=== PATIENT | female | born 1945 | race Caucasian/White ===

== ENCOUNTER → 2019-06-14 09:52 | Outpatient (CLI) | payer MEDICARE, OTHER, SELFPAY ==
--- NOTE | 2019-06-14 14:19 | NEURO_ITS ---
NCS and/or EMG Patient Report Ordering Doctor: Abhijit Garcia DATE OF SERVICE: 06/14/19 Dolores Villa is a 73-year-old male who presents for electrodiagnostic testing of the right upper limb. She has numbness and tingling in the right hand, which occasionally radiates to the elbow. Electrodiagnostic findings: The right median motor nerve demonstrates prolonged distal latency with normal amplitude and reduced conduction velocity. Normal right ulnar motor response, including conduction across the elbow. Prolonged r ight median F waves. Prolonged right median sensory latency at the wrist. Prolonged right median palmar latency. On needle EMG, all muscles tested in the right upper limb showed no evidence of denervation with normal motor unit action potentials Electrodiagnostic impression: This is an abnormal study in the right upper limb. 1. Electrodiagnostic findings demonstrate right-sided median mononeuropathy. This is consistent with a moderate right carpal tunnel syndrome. If there are any further questions, please do not hesitate to contact me.
== END ==
PROVIDERS: Family Provider Internal Medicine; PCP Internal Medicine
DX: G56.01 Carpal tunnel syndrome, right upper limb (principal)
CPT/HCPCS: 95886; 95910

== ENCOUNTER → 2019-08-24 07:42 | Outpatient (CLI) | payer MEDICARE, OTHER, SELFPAY ==
[2019-07-27 13:19] VITALS: BMI 25.7
--- NOTE | 2019-08-24 07:48 | ECHOD_ITS ---
Reason For Study: CAD Procedure This was a 2D Doppler, Color Flow transthoracic echocardiogram. The exam was of adequate technical quality. Exam performed in department. Left Ventricle Normal LV size. Left ventricular systolic function is normal. The estimated ejection fraction is 60 %. No regional wall motion abnormalities noted. Right Ventricle Normal RV size. Normal systolic function. Atria Normal left atrium. Normal right atrium. No doppler evidence for ASD. Mitral Valve There is mild mitral annular calcification. Extension of the mitral annular calcification onto the posterior mitral valve leaflet. Mild (1+) mitral valve insufficiency. Tricuspid Valve Normal tricuspid valve. Mild to moderate (1-2+) tricuspid valve insufficiency. Right ventricular systolic pressure estimated to be 27 mmHg. Aortic Valve Trisinus/trileaflet aortic valve. Normal aortic valve. Pulmonic Valve The pulmonic valve is not well visualized. Trivial pulmonic valve insufficiency. Great Vessels Borderline to mildly dilated aortic root. Pericardium/Pleural No pericardial effusion. MMode/2D Measurements & Calculations LVIDd: 4.1 cm IVSd: 0.70 cm Ao root diam: 3.9 cm LVIDs: 2.6 cm LVPWd: 0.77 cm RVDd: 3.2 cm FS: 36.7 % LAV(MOD-bp): 32.3 ml LA A4 area: 13.9 cm2 LA dimension(2D): 3.8 cm LAV(MOD-bp) Indexed: 20.6 ml/m2 LAV(MOD-sp2): 31.9 ml LAV(MOD-sp4): 31.7 ml RA A4 area: 11.7 cm2 Time Measurements MV dec time: 0.21 sec Doppler Measurements & Calculations MV E max piero: 77.1 cm/sec Lat Peak E' Piero: 9.9 cm/sec Med Peak E' Piero: 5.7 cm/sec MV A max piero: 70.9 cm/sec E/E' lat: 7.8 E/E' med: 13.4 MV E/A: 1.1 Ao V2 max: 107.9 cm/sec LV V1 max: 111.4 cm/sec PA V2 max: 98.0 cm/sec Ao max P.7 mmHg LV V1 max P.0 mmHg TR max piero: 242.6 cm/sec TR max P.7 mmHg Interpretation Summary Left ventricular systolic function is normal. The estimated ejection fraction is 60 %. There is mild mitral annular calcification. Extension of the mitral annular calcification onto the posterior mitral valve leaflet. Mild (1+) mitral valve insufficiency. Mild to moderate (1-2+) tricuspid valve insufficiency. Trivial pulmonic valve insufficiency. Borderline to mildly dilated aortic root. Right ventricular systolic pressure estimated to be 27 mmHg. Transmitral diastolic flow velocities suggest diastolic dysfunction (pseudonormal pattern). Ordering Physician: Percy Trinh Referring Physician: Percy Trinh Performed By: Parisa Pollack, RDCS, RVT
== END ==
PROVIDERS: Family Provider Internal Medicine; PCP Internal Medicine; Referring Provider Internal Medicine Cardiovascular Disease; Visit Provider Internal Medicine Cardiovascular Disease
DX: I25.10 Atherosclerotic heart disease of native coronary artery without angina pectoris (principal); I71.2 Thoracic aortic aneurysm, without rupture; E78.00 Pure hypercholesterolemia, unspecified; I10 Essential (primary) hypertension; Z95.5 Presence of coronary angioplasty implant and graft
CPT/HCPCS: 93306

== ENCOUNTER 2019-12-04 08:30 | Outpatient (RCR) | payer MEDICARE, OTHER, SELFPAY ==
[2019-07-27 13:19] VITALS: BMI 25.7
--- NOTE | 2019-11-01 16:43 | HP.OTEVAL ---
Patient's Visit Information GARCIA AU is a 74 year old F, referred to Occupational Therapy by Abhijit Garcia MD, with a diagnosis of left CTS. Date of Evaluation: 11/01/19 Occupational Therapist: RADHA Khan/[place], CHT - Subjective Subjective: This 74 year old female was seen for OT eval following a right and left CTR. righ hand was 2018, and left hand was 2018. pt states since sx she is having pain shooting from shoulder to down her arm and has increase numbness. pt states she is limited with ADLs due to pain weakness and scar sensitivity. - ADLs Dressing: Button shirt, Pants Fasteners: Tie shoes, Buttons Eating: Cut food Bathing: Squeeze shampoo bottle Grooming: Curling iron, Squeeze toothpaste on Kitchen: Chop with knife, Peel fruits & vegetables, Open jars, Open bottle caps, Ziplock bags, Lift gallon of milk, Take dish out of oven, Load/unload creative engagement director, Place dish in microwave - Pain left hand/forearm 6 Pain Intensity Range: 0, 8 - ROM Wrist: right 50/60 left 45/45 ROM Comments: pt demo with a decrease in left MF MCP -15/85 - Strength Surgical Scheduler: rigth 25# left 18# Lateral Pinch: right 10# left 6# Tripod Pinch: right 6# left 4# - Sensation Thumb: right 2.83 left 3.22 Index: right 2.83 left 3.22 Middle: right 2.83 left 3.61 Ring: right 2.83 left 2.83 Little: right 2.83 left 2.83 - Quick DASH-Disab of Arm,Shoulder& Hand Quick DASH Score: 43.1800 - Goals Goal:: PT will demo an increase in facilities maintenance technician strength by 20# to increase independent with basic occupations of daily living to return pt to PLOF by D/C. Pt will demo an increase in lateral and tripod pinch by 2# to increase pts independent with opening baggies, containers at PLOF by D/C. Goal:: Pt will report pain no greater than 1/10 with use of affected hand with BADLs and IADLs by d/c. Goal:: Pt will demo understanding of scar mtg. by end of 2nd session to increase tissue extensibility to limit scar adhesions and allow full tendons function by d/c. Pt will demo a decrease is scar sensitivity to tolerate wearing long sleeve shirts by D/c. Goal:: Pt will demo understanding of joint protection, use of adaptive eq. and ergonomics when performing BADLs and IADLs by d/c - Rehabilitation General Assessment: pt demo with left scar sensitivity and decreased ROM and strength- pt demo need for skilled OT services 2-3x week for 4-6 weeks to return pts strength and ROM for pt to IND. return to ADLS and IADLS. Today therapist ed. pt on scar mtg, desensitization and median nerve glides. Pt was given handout and demo understanding and agree to POC. Rehabilitation Potential: Good - Anticipated Interventions Anticipated Interventions: A/AAROM/PROM, Strengthening, Scar Care, Triggerpoint Release, Desensitization, Sensory Retraining, Modalities, Joint Protection/Energy Conservation - Visit Plan Frequency: 2-3x /Week Duration: 6 Weeks TEXT: Thank you for the opportunity to evaluate your patient. For Medicare and Medicare HMO plans, please review the plan of care and approve it. It will need to be FAXED BACK to us at [phone] for Medicare purposes. Please let me know if there are questions or concerns regarding this plan of care. Physician Signature: Date:
--- NOTE | 2019-12-04 08:49 | HP.OTDCSUM ---
HP - OT D/C Summary It has been my pleasure to treat GARCIA AU under orders from Abhijit Garcia MD, for the diagnosis of left CTS for a total of 13 visit(s). Please see the following information for a summary of their discharge status. - Overall Improvement % Improvement: 80 - Objective Objective/Function: right floor waxer strength 35#. left floor waxer strength 35#. right lateral pinch 8#. left lateral pinch 8#. left tripod pinch 8#. left finger tip sensation 2.83 all fingers demo a increase in sensation return. pt continues to state left MF still feels numb. pt has been ed. that nerves take about 18 months to repair- pt demo understanding. - Goals Patient Goals: Regain Strength, Decrease Pain, Improve Fine Motor Skills, Use Hand/Wrist/Arm Normally Again, Improve Sitting Balance Goal:: PT will demo an increase in floor waxer strength by 20# to increase independent with basic occupations of daily living to return pt to PLOF by D/C. Pt will demo an increase in lateral and tripod pinch by 2# to increase pts independent with opening baggies, containers at PLOF by D/C. Goal:: Pt will report pain no greater than 1/10 with use of affected hand with BADLs and IADLs by d/c. Goal:: Pt will demo understanding of scar mtg. by end of 2nd session to increase tissue extensibility to limit scar adhesions and allow full tendons function by d/c. Pt will demo a decrease is scar sensitivity to tolerate wearing long sleeve shirts by D/c. Goal:: Pt will demo understanding of joint protection, use of adaptive eq. and ergonomics when performing BADLs and IADLs by d/c - Plan Plan: D/C - D/C Information Discharge Comments: pt was seen for 13 visits- pt made good improvements with her ROM and sensation as well as returning to PLOF with ADls and IADLs. Pt is to continue with scar mtg, and strengthening. pt demo with slight trigger on right MF and advised to work with ice massage to decrease inflamation on flexor tendon- and use of splint to decrease triggering. Pt advised to return to dr if symptoms do not resolve in 4 weeks to return to dr. pt demo understanding and agree with POC. If there are questions or concerns regarding this patient's occupational therapy, please fell free to call me at [phone]. Thank you for the referral of this patient. Sincerely, Kassy Lind, OTR/L, CHT
== END 2019-12-04 19:00 | disposition home or self-care (01) ==
LOC: OT 08:30
PROVIDERS: Family Provider Internal Medicine; PCP Internal Medicine; Referring Provider Orthopaedic Surgery; Visit Provider Orthopaedic Surgery
DX: G56.02 Carpal tunnel syndrome, left upper limb (principal)
CPT/HCPCS: 97035; 97110; 97140; 97166; 97530

== ENCOUNTER 2020-05-10 17:28 | Emergency (ER) | payer MEDICARE, OTHER, SELFPAY ==
[2020-01-29 10:08] VITALS: BMI 26.4
[2020-05-10 17:29] VITALS: BP 118/63; PULSE 76; RESP 16; TEMP 36.7; O2SAT 97; BMI 27.8
[2020-05-10 17:34] VITALS: O2SAT 96
--- NOTE | 2020-05-10 17:34 | EKG12_ITS ---
Test Reason : STROKE Blood Pressure : / mmHG Vent. Rate : 076 BPM Atrial Rate : 076 BPM P-R Int : 154 ms QRS Dur : 078 ms QT Int : 378 ms P-R-T Axes : 008 025 040 degrees QTc Int : 425 ms Normal sinus rhythm Normal ECG Confirmed by IRON SIMPSON, DOMENICA ([id number]), editor news DANA CARRINGTON ([id number]) on 05/15/2020 1:01:20 PM Referred By: ANKIT Confirmed By:DOMENICA PERDUE MD
--- NOTE | 2020-05-10 17:36 | CT_ITS ---
STUDY: CTA HEAD AND NECK WITH CONTRAST REASON FOR EXAM: Female, 74 years old. NEURO DEFICIT, ACUTE, STROKE SUSPECTED. RADIATION DOSAGE (If Supplied By Facility): CTDIvol = ( 25.02 ) mGy, DLP = ( 1435.50 ) mGycm TECHNIQUE: CT angiography was performed with a multi-detector CT scanner. Data acquisition was obtained from the skull base through the vertex following intravenous administration of IV 75mL Isovue-370. MIP images were reconstructed from the axial data set. Post-processing of the angiographic images was performed, with multiplanar reformation and 3D reconstruction. Individualized dose optimization techniques were used for this CT. COMPARISON: No relevant priors. FINDINGS: Intracranial ICA calcifications. Otherwise: Normal bilateral petrous carotid arteries. Normal right cavernous carotid artery with a normal supraclinoid bifurcation. Normal left cavernous carotid artery with a normal supraclinoid bifurcation. Normal right A1 segments of the anterior cerebral artery. Normal left A1 segments of the anterior cerebral artery. Normal intact anterior communicating artery (ACOM). Normal bilateral A2 segments of the anterior cerebral arteries. Normal right M1 and M2 segments of the middle cerebral arteries, with a normal M1 bifurcation. Normal left M1 and M2 segments of the middle cerebral arteries, with a normal M1 bifurcation. Normal right posterior communicating artery (PCOM). 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 Normal bilateral vertebral arteries. Normal basilar artery with a normal basilar bifurcation. The visualized bilateral superior cerebellar (SCA) arteries are normal. Normal bilateral P1, P2 and visualized P3 segments of the posterior cerebral arteries. There is no demonstrated aneurysm of the [place]. Bilateral lens replacements. AORTIC ARCH: Normal visualized aortic arch. Normal origins of the brachiocephalic, left common carotid, and left subclavian arteries. RIGHT CAROTID ARTERIES: Normal right common carotid artery (CCA). Mild concentric calcified bulb plaque without underlying stenosis. Normal origin of the right internal carotid (ICA) artery without a hemodynamically significant stenosis. Normal visualized cervical portion of the right internal carotid artery. Normal origin of the right external carotid artery (ECA). LEFT CAROTID ARTERIES: Normal left common carotid artery (CCA). Mild concentric calcified bulb plaque without underlying stenosis. Normal origin of the left internal carotid (ICA) artery without a hemodynamically significant stenosis. Normal visualized cervical portion of the left internal carotid artery. Normal origin of the left external carotid artery (ECA). VERTEBRAL ARTERIES: Normal bilateral vertebral arteries. CT/CTA Head AND Neck W/ Contrast IMPRESSION: No CTA evidence of significant intracranial arterial pathology. No CTA evidence of significant arterial pathology in the neck. NASCET criteria was used. Electronically Signed: Jack Farrell MD at 18:44 EDT Tel , Service support ,
--- NOTE | 2020-05-10 17:40 | ED.VISSUMM ---
- ER Visit Summary Date of Service: 05/10/20 Chief Complaint: Dizziness and forgetful speech History of Present Illness: The patient is a 74 F has medical history of CAD, SD, diabetes and renal insufficiency. Patient denies ever having a stroke or mini stroke. Her story is somewhat changed initially she told the paramedics that she started having dizziness today at 130. She tells me she has been having dizzy spells for a lengthy period of time weeks to months. Today's dizzy spell is when she was got off of a ladder. She denies any headache. No fall or trauma. Also states she has trouble with her speech because she forgets what she is going to say. That also happened today. But she denies having trouble speaking. She denies any numbness or weakness to her upper or lower extremities. She is on no blood thinners besides aspirin. Physical Examination: Older female brought in by paramedics. Awake and alert with no acute distress. H EENT exam normal. Pupils round reactive light extra motions are intact. No facial droop. Normal speech. The paramedics initially thought she had a facial droop if she did at this time is totally resolved she does not currently. Neck nontender. Lungs clear to auscultation bilaterally. Heart regular rhythm rate about 80 no murmur. Chest wall nontender. Abdomen soft nontender. Normal bowel sounds no peritoneal signs. Patient is moving all 4 extremities. They are neurovascularly intact. She has equal symmetrical 5/5 architectural project manager strength. Dorsi plantarflexion intact 5-5. Normal range of motion both upper and lower extremities. No edema. Neurologically she is awake. She is alert. She is speaking normally. There is no slurring of her speech. She is easily understood. She has no expressive or receptive aphasia. She is following commands easily. Again normal architectural project manager strength. Normal fingertip to nose bilaterally. No drift of either the upper or lower extremities. Normal motor strength, sensation and range of motion of both upper and lower extremities. Her NIH score currently is 0. Test Results: EKG normal sinus rhythm rate of 76 no acute signs of ischemia or dysrhythmia. CBC white count 8 hemoglobin 13. Chemistries BUN 22 creatinine 1.78 gap of 7. PT PTT INR normal. Troponin normal. Chest x-ray unremarkable. Read both of the radiologist and myself portable 1 view. CTA head neck no acute abnormality. No signs of stroke, bleed or mass. No significant stenosis. Basically unremarkable. Emergency Department Course and Treatment: Female with intermittent dizzy spells over weeks or longer. With an NIH score currently of 0. She will be put through a stroke work-up. Clinically she is not a TPA candidate at this time. The risks of TPA at this time would far outweigh any attentional benefits. Treatment Plan: Repeat exam patient is doing well at 1920 p.m. There is a female friend in the room. We discussed all of her test results. Repeat exam her neuro exam remains normal. She will be discharged home with outpatient follow-up. Return if worse. Disposition: Discharge Impression: Acute transient dizziness of uncertain etiology History of CAD and SD History of chronic renal insufficiency History of diabetes This note was generated with [employer] dictation software. It may contain incorrect words, spelling, and punctuation that were not noted in review of the chart prior to signing ED Disposition - Plan for ED Patient: Referrals: Lo Weir MD [Primary Care Provider] -
[2020-05-10 17:54] LABS: Absolute Lymphocyte Count 2.54 X10^3/uL (0.83-4.51); Absolute Neutrophil Count 4.6 X10^3/uL (2.0-7.7); Basophil# 0.04 X10^3/uL; Basophil% 0.5 % (0-1); Eosinophil# 0.19 X10^3/uL; Eosinophils% 2.3 % (0-5); Hemoglobin 13.3 g/dL (12.0-15.0); Lymphocyte # 2.54 X10^3/ul (4.0); Lymphocyte % 30.8 % (19-41); Mean Corp Hgb Conc 32.4 g/dL (32-36); Mean Corpuscular Hgb 31.7 pg (27.0-32.0); Mean Corpuscular Volume 97.9 fL (81-99); Mean Platelet Vol. 11.5 fl (6.2-12.0); Monocyte# 0.87 X10^3/uL; Monocyte% 10.5 % (0-10); NRBC Flagged by Analyzer 0 % (0-5); Neutrophil # 4.59 X10^3/uL (2.7-7.7); Neutrophil % 55.5 % (47-70); Platelet Count 249 K/mm3 (150-450); RBC Distribution Width CV 12.9 % (11.6-14.6); RBC Distribution Width SD 45.9 fl (35.1-43.9); Red Blood Count 4.19 M/mm3 (4.2-5.4); White Blood Count 8.3 K/mm3 (4.4-11.0)
[2020-05-10 17:56] VITALS: BMI 27.8
[2020-05-10 18:04] VITALS: BP 139/67; PULSE 72; RESP 13; O2SAT 96
[2020-05-10 18:07] LABS: Partial Thromboplast Time 25.5 Seconds (24.1-36.2); Prothrombin Time (Protime)PT. 12.6 SECONDS (11.7-14.9)
[2020-05-10 18:11] LABS: Anion Gap 7 (5-15); BUN 22 mg/dL (7-18); BUN/Creat Ratio 12.4 RATIO (10-20); Calcium,Total 10.1 mg/dL (8.5-10.1); Chloride 103 mmol/L (98-107); Creatinine, Serum 1.78 mg/dL (0.55-1.02); EST Glomerular Filtration Rate 30 mL/min (>60); Est Glom Filt Rate - Afr Amer 36 mL/min (>60); Estimated Creatinine Clearance 19.92 ml/min; Glucose 184 mg/dL (74-106); Sodium Level 136 mmol/L (136-145)
--- NOTE | 2020-05-10 18:29 | RAD_ITS ---
STUDY: X-RAY CHEST REASON FOR EXAM: Female, 74 years old. PT IS A POOR HISTORIAN. LT FACE DRIFT, SPEECH ISSUES. PT GIVES VARIOUS TIMES FOR EACH. BGL 177. RT SIDED PAIN TO HEAD. TECHNIQUE: Single frontal view of the chest. COMPARISON: January 28, 2011 FINDINGS: The lungs are clear and expanded. There is no demonstrated pleural abnormality. Normal size heart. Normal mediastinum and elise. Normal visualized pulmonary arteries. Normal visualized aortic arch and descending thoracic aorta. Normal visualized thoracic spine. Remote right clavicle deformity. There is no demonstrated abnormality of the visualized soft tissue structures of the upper abdomen. RAD/Chest 1 View IMPRESSION: No acute pulmonary findings. Electronically Signed: Jack Farrell MD at 18:50 EDT Tel , Service support ,
[2020-05-10 18:30] VITALS: BP 129/64; PULSE 73; O2SAT 96
[2020-05-10] MEDS: 0.9% Normal Saline 1,000 ML 999 ML IV (18:40)
--- NOTE | 2020-05-10 18:47 | ED.RN ---
OK TO D/C [facility] D/T 3 [facility] WITH ZERO PER DR. MCKENZIE.
--- NOTE | 2020-05-10 19:26 | ED.DEP ---
ED Disposition - Plan for ED Patient: Disposition: Home or Assisted Living Instructions: ED Dizziness [facility] Referrals: Lo Weir MD [Primary Care Provider] - 3-5 Days Additional Instructions: Fluids and rest. Follow-up your primary care physician. Your labs and CAT scan today were basically unremarkable except for your chronic renal insufficiency.
[2020-05-10 19:55] VITALS: BP 132/67; PULSE 80; RESP 16; O2SAT 96
== END 2020-05-10 19:56 | disposition home or self-care (01) ==
PROVIDERS: Emergency Provider Emergency Medicine; PCP Internal Medicine
DX: R42 Dizziness and giddiness (principal); I25.10 Atherosclerotic heart disease of native coronary artery without angina pectoris; I25.2 Old myocardial infarction; E11.22 Type 2 diabetes mellitus with diabetic chronic kidney disease; N18.9 Chronic kidney disease, unspecified
CPT/HCPCS: 70496; 70498; 71045; 80048; 84484; 85025; 85610; 85730; 93005; 96361; 96374; 99285; J7030; Q9967

== ENCOUNTER → 2020-11-05 06:10 | Outpatient (CLI) | payer MEDICARE, OTHER, SELFPAY ==
--- NOTE | 2020-11-05 08:04 | STRESSREP_ITS ---
Stress Test Report Date: 11-05-2020 Procedure: Pharmacologic stress nuclear imaging study Indications: CAD; PCI; preoperative cardiovascular evaluation Consent: Per the patient Procedure: The patient underwent pharmacologic (Regadenoson) evaluation with a peak heart rate of 139 beats per minute (95%predicted maximal heart rate) and a peak blood pressure of 132/62 mmHg. The baseline ECG demonstrated sinus rhythm. The peak pharmacologic ECG demonstrated no obvious ECG changes. There were occasional to frequent PACs during recovery. There was no complaint of chest discomfort during pharmacologic infusion or recovery. The examination was discontinued secondary to completion of protocol. Impression: 1. Pharmacologic (Regadenoson) evaluation 2. Peak pharmacologic ECG with no obvious ECG changes. 3. There were occasional to frequent PACs during recovery. 4. Nuclear images pending Myocardial perfusion imaging study: Technique: The patient was injected with 10.6 millicuries of technetium 99m Cardiolite and subsequently rest SPECT Cardiolite nuclear imaging was obtained in the horizontal long, vertical long, and short axis views. The patient underwent pharmacologic (Regadenoson) evaluation with a peak heart rate of 139 beats per minute (95% percent predicted maximal heart rate) and a peak blood pressure of 132/62 mmHg. The patient was injected with 31.7 millicuries of technetium 99m Cardiolite and subsequently stress SPECT Cardiolite nuclear imaging was obtained in the horizontal long, vertical long, and short axis views. A gated Cardiolite study at peak stress was obtained. Interpretation: Rest and stress SPECT Cardiolite nuclear imaging status post realignment, normalization, and attenuation correction demonstrate relative uniform tracer uptake and myocardial perfusion appearing within normal limits. There is end systolic thickening and brightening. The gated Cardiolite study demonstrates myocardial thickening and inward wall motion. The reported LVEF is 95%. Impression: 1. Rest and stress SPECT Cardiolite nuclear imaging demonstrate relative uniform tracer uptake and myocardial perfusion appearing within normal limits. 2. The gated Cardiolite study reports an LVEF of 95%. This note was generated with [employer] software. It may contain incorrect words, spelling, and punctuation that were not noted in checking the note before signing.
== END ==
PROVIDERS: PCP Internal Medicine; Referring Provider Internal Medicine Cardiovascular Disease; Visit Provider Internal Medicine Cardiovascular Disease
DX: I25.10 Atherosclerotic heart disease of native coronary artery without angina pectoris (principal); E78.00 Pure hypercholesterolemia, unspecified; Z95.5 Presence of coronary angioplasty implant and graft
CPT/HCPCS: 78452; 93017; A9500; A4216; J2785

== ENCOUNTER → 2020-12-31 09:04 | Outpatient (CLI) | payer MEDICARE, OTHER, SELFPAY ==
[2020-11-11 10:23] VITALS: BMI 25.6
--- NOTE | 2020-12-31 09:23 | EKG12_ITS ---
Test Reason : PRE OP Blood Pressure : / mmHG Vent. Rate : 065 BPM Atrial Rate : 065 BPM P-R Int : 154 ms QRS Dur : 082 ms QT Int : 386 ms P-R-T Axes : 047 065 061 degrees QTc Int : 401 ms Normal sinus rhythm Normal ECG Confirmed by IRON SIMPSON, DOMENICA ([id number]), society editor ISMAEL FISH ([id number]) on 01/01/2021 9:14:32 AM Referred By: Marck Yo Confirmed By:DOMENICA PERDUE MD
[2020-12-31 10:17] LABS: Hematocrit 38.9 % (37-47); Hemoglobin 12.5 g/dL (12.0-15.0); Mean Corp Hgb Conc 32.1 g/dL (32-36); Mean Corpuscular Hgb 31.6 pg (27.0-32.0); Mean Corpuscular Volume 98.5 fL (81-99); Mean Platelet Vol. 11.1 fl (6.2-12.0); Platelet Count 283 K/mm3 (150-450); RBC Distribution Width CV 12.7 % (11.6-14.6); RBC Distribution Width SD 45.3 fl (35.1-43.9); Red Blood Count 3.95 M/mm3 (4.2-5.4); White Blood Count 6.6 K/mm3 (4.4-11.0)
[2020-12-31 10:40] LABS: Anion Gap 5 (5-15); BUN 19 mg/dL (7-18); BUN/Creat Ratio 13.6 RATIO (10-20); Calcium,Total 9.9 mg/dL (8.5-10.1); Chloride 105 mmol/L (98-107); EST Glomerular Filtration Rate 39 mL/min (>60); Est Glom Filt Rate - Afr Amer 47 mL/min (>60); Glucose 190 mg/dL (74-106); Potassium 3.9 mmol/L (3.5-5.1); Sodium Level 137 mmol/L (136-145)
== END ==
PROVIDERS: PCP Internal Medicine; Referring Provider Orthopaedic Surgery; Visit Provider Orthopaedic Surgery
DX: Z01.810 Encounter for preprocedural cardiovascular examination (principal); Z01.818 Encounter for other preprocedural examination; Z11.59 Encounter for screening for other viral diseases
CPT/HCPCS: 36415; 80048; 85027; 87635; 93005; U0005; U0003

== ENCOUNTER 2022-03-02 11:59 | Outpatient (CLI) | payer MEDICARE, OTHER, SELFPAY ==
[2022-03-02 12:45] LABS: Absolute Lymphocyte Count 2.63 X10^3/uL (0.83-4.51); Absolute Neutrophil Count 4.1 X10^3/uL (2.0-7.7); Basophil# 0.07 X10^3/uL; Basophil% 0.9 % (0-1); Eosinophil# 0.24 X10^3/uL; Hematocrit 39.9 % (37-47); Lymphocyte # 2.63 X10^3/ul (0.83-4.51); Lymphocyte % 32.8 % (19-41); Mean Corp Hgb Conc 32.6 g/dL (32-36); Mean Corpuscular Hgb 31.6 pg (27.0-32.0); Mean Corpuscular Volume 97.1 fL (81-99); Mean Platelet Vol. 10.9 fl (6.2-12.0); Monocyte# 0.94 X10^3/uL; Monocyte% 11.7 % (0-10); NRBC Flagged by Analyzer 0 % (0-5); Neutrophil # 4.07 X10^3/uL (2.7-7.7); Neutrophil % 50.7 % (47-70); Platelet Count 292 K/mm3 (150-450); RBC Distribution Width CV 13.2 % (11.6-14.6); RBC Distribution Width SD 46.5 fl (35.1-43.9); Red Blood Count 4.11 M/mm3 (4.2-5.4)
[2022-03-02 13:02] LABS: International Normalized Ratio 1.1; Prothrombin Time (Protime)PT. 13.1 SECONDS (11.7-14.9)
[2022-03-02 13:29] LABS: Anion Gap 6 (5-15); BUN 21 mg/dL (7-18); BUN/Creat Ratio 14.6 RATIO (10-20); Calcium,Total 9.8 mg/dL (8.5-10.1); Chloride 101 mmol/L (98-107); Creatinine, Serum 1.44 mg/dL (0.55-1.02); EST Glomerular Filtration Rate 38 mL/min (>60); Est Glom Filt Rate - Afr Amer 46 mL/min (>60); Glucose 130 mg/dL (74-106); Potassium 4.2 mmol/L (3.5-5.1); Sodium Level 136 mmol/L (136-145)
== END 2022-03-02 23:59 | disposition home or self-care (01) ==
LOC: LAB 12:02
PROVIDERS: PCP Internal Medicine; Referring Provider Internal Medicine Cardiovascular Disease; Visit Provider Internal Medicine Cardiovascular Disease
DX: I25.110 Atherosclerotic heart disease of native coronary artery with unstable angina pectoris (principal); E78.00 Pure hypercholesterolemia, unspecified; I10 Essential (primary) hypertension; Z95.5 Presence of coronary angioplasty implant and graft
CPT/HCPCS: 36415; 80048; 85025; 85610; 85730

== ENCOUNTER → 2022-03-19 | Outpatient (CLI) | payer MEDICARE, OTHER, SELFPAY ==
--- NOTE | 2022-03-19 07:56 | ECHOD_ITS ---
Reason For Study: CAD/ASHD Procedure This was a 2D Doppler, Color Flow transthoracic echocardiogram. The exam was of adequate technical quality. Exam performed in department. Left Ventricle Normal LV size. Left ventricular systolic function is normal. The estimated ejection fraction is 60 %. Diastolic function is indeterminate. No regional wall motion abnormalities noted. Right Ventricle Normal RV size. Normal systolic function. Atria Normal left atrium. Normal right atrium. No doppler evidence for ASD. Mitral Valve There is mild mitral annular calcification. Extension of the mitral annular calcification onto the base of the posterior mitral valve leaflet. Mild-Moderate (1-2+) mitral valve insufficiency. Tricuspid Valve Normal tricuspid valve. Mild to moderate (1-2+) tricuspid valve insufficiency. Right ventricular systolic pressure estimated to be 27 mmHg. Aortic Valve Trisinus/trileaflet aortic valve. Normal aortic valve. Pulmonic Valve The pulmonic valve is not well visualized. Mild (1+) pulmonic valve insufficiency. Great Vessels Borderline enlarge aortic root. Calcified aortic root. Pericardium/Pleural No pericardial effusion. MMode/2D Measurements & Calculations LVIDd: 4.4 cm IVSd: 0.89 cm Ao root diam: 3.6 cm LVIDs: 2.2 cm LVPWd: 0.86 cm RVDd: 3.4 cm FS: 49.2 % LAV(MOD-bp): 44.7 ml LVAd ap4: 24.3 cm2 LVAd ap2: 20.3 cm2 LAV(MOD-bp) Indexed: 28.7 ml/m2 LVLd ap4: 7.3 cm LVLd ap2: 6.2 cm LAV(MOD-sp2): 52.6 ml EDV(MOD-sp4): 65.9 ml EDV(MOD-sp2): 55.2 ml LAV(MOD-sp4): 37.5 ml EDV(sp4-el): 69.2 ml EDV(sp2-el): 56.4 ml LVAs ap4: 13.5 cm2 LVAs ap2: 10.9 cm2 LVLs ap4: 5.4 cm LVLs ap2: 4.8 cm ESV(MOD-sp4): 27.0 ml ESV(MOD-sp2): 20.1 ml ESV(sp4-el): 28.8 ml ESV(sp2-el): 21.1 ml EF(MOD-sp4): 59.0 % EF(MOD-sp2): 63.6 % EF(sp4-el): 58.5 % SV(MOD-sp4): 38.9 ml SV(MOD-sp2): 35.1 ml SV(sp4-el): 40.5 ml LA dimension(2D): 3.5 cm LA A4 area: 15.1 cm2 RA A4 area: 10.2 cm2 Doppler Measurements & Calculations MV E max piero: 87.4 cm/sec Lat Peak E' Piero: 6.0 cm/sec Med Peak E' Piero: 6.4 cm/sec MV A max piero: 71.7 cm/sec E/E' lat: 14.6 E/E' med: 13.7 MV E/A: 1.2 Ao V2 max: 98.8 cm/sec LV V1 max: 78.4 cm/sec PA V2 max: 88.4 cm/sec Ao max P.9 mmHg LV V1 max P.5 mmHg TR max piero: 244.1 cm/sec TR max P.8 mmHg ECHO/Echo Complete Interpretation Summary Left ventricular systolic function is normal. The estimated ejection fraction is 60 %. There is mild mitral annular calcification. Extension of the mitral annular calcification onto the base of the posterior mi tral valve leaflet. Mild-Moderate (1-2+) mitral valve insufficiency. Mild to moderate (1-2+) tricuspid valve insufficiency. Mild (1+) pulmonic valve insufficiency. Borderline enlarge aortic root. Calcified aortic root. Right ventricular systolic pressure estimated to be 27 mmHg. Diastolic function is indeterminate. Ordering Physician: Percy Trinh Referring Physician: Percy Trinh Performed By: Candace Corey RCS
--- NOTE | 2022-03-19 08:46 | RAD_ITS ---
STUDY: X-RAY CHEST REASON FOR EXAM: Female, 76 years old. Chest pain with dyspnea on exertion. TECHNIQUE: Frontal and lateral views of the chest. COMPARISON: 05/10/2020. FINDINGS: The lungs are clear and expanded. There is no demonstrated pleural abnormality. Stable mild cardiomegaly. Normal mediastinum and elise. Normal visualized pulmonary arteries. Aortic tortuosity unchanged Normal visualized thoracic spine. Normal visualized ribs, clavicles, and shoulders. There is no demonstrated abnormality of the visualized soft tissue structures of the upper abdomen. RAD/Chest PA and Lateral IMPRESSION: Stable cardiomegaly with no acute or active cardiopulmonary disease. Electronically Signed: Jeffrey Jeffrey MD at 10:18 EDT ,
== END | disposition home or self-care (01) ==
LOC: CVS 07:55
PROVIDERS: PCP Internal Medicine; Referring Provider Internal Medicine Cardiovascular Disease; Visit Provider Internal Medicine Cardiovascular Disease
DX: I25.119 Atherosclerotic heart disease of native coronary artery with unspecified angina pectoris (principal); E78.00 Pure hypercholesterolemia, unspecified; I10 Essential (primary) hypertension; Z95.5 Presence of coronary angioplasty implant and graft; I25.10 Atherosclerotic heart disease of native coronary artery without angina pectoris
CPT/HCPCS: 71046; 93306

== ENCOUNTER 2022-03-24 07:26 | Day surgery (SDC) | payer MEDICARE, OTHER, SELFPAY ==
--- NOTE | 2022-03-20 17:48 | HP.PCM_ITS ---
History and Physical Date of Admission: 03/24/22 [facility] [address] [facility]. [address] [place] [address] [phone] OFFICE VISITDate of Service: 03/02/22 MR#:[id number]:[id number]: GARCIA AU [facility] #:[id number]:1945 Provider:Dr. Percy Trinh, MDAge/Sex: 76/F Locat ion:[facility]MS.WHGStatus:Signed HPI HPI History of Present Illness Surgical H&P: Yes Details: This is a 76-year-old white female who presents today for outpatient cardiovascular with a history of underlying CAD and LAD PCI as well as a dilated aortic root superimposed on hyperlipidemia and hypertension. She states she has been getting chest discomfort with exertion (feeling like an elephant on the chest) along with dyspnea when she exerts herself such as going up an incline or going upstairs. She will stop and rest and feel better. She states occasionally she needs to use her nitroglycerin sublingual tablets to feel better. She has denied orthopnea and PND and peripheral pitting edema. There has been no near-syncope or syncope. She had an ECG in the office today. She was noted to be in sinus rhythm with a nonspecific T wave abnormality. Her previous cardiovascular studies available for review are noted below. They were reviewed with her. 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 Required: No Accompanied by: Self Allergies hydrochlorothiazide Allergy (Verified 03/02/22 10:59) headache lorazepam [From Ativan] Allergy (Verified 03/02/22 10:59) Unknown Sulfa (Sulfonamide Antibiotics) Allergy (Verified 03/02/22 10:59) Unknown anti-inflammatories Allergy (Uncoded 03/02/22 10:59) Swelling Medications levothyroxine 75 mcg PO DAILY 04/11/15 [History Confirmed 03/02/22] multivitamin with folic acid 1 tab PO DAILY 04/11/15 [History Confirmed 03/02/22] nitroglycerin 0.4 mg SUBLINGUAL Q5M PRN 04/11/15 [History Confirmed 03/02/22] rosuvastatin 40 mg PO QHS 04/11/15 [History Confirmed 03/02/22] aspirin 81 mg tablet,delayed release 81 mg PO DAILY 07/26/19 [History Confirmed 03/02/22] metoprolol tartrate 25 mg tablet 25 mg PO BID tab 07/26/19 [History Confirmed 03/02/22] glipizide 5 mg tablet 5 mg PO BID 07/27/19 [History Confirmed 03/02/22] lactobacillus combination no.9 4 billion cell capsule 4,000 mmu cells PO DAILY 07/27/19 [History Confirmed 03/02/22] cholecalciferol (vitamin D3) 50 mcg (2,000 unit) capsule 50 mcg PO DAILY 11/11/20 [History Confirmed 03/02/22] famotidine 40 mg tablet 20 mg PO BID tab 11/11/20 [History Confirmed 03/02/22] lisinopril 10 mg tablet 10 mg PO DAILY tab 11/11/20 [History Confirmed 03/02/22] biotin 1,000 mcg chewable tablet 1,000 mcg PO DAILY 03/02/22 [History Confirmed 03/02/22] isosorbide mononitrate 30 mg tablet,extended release 24 hr 30 mg PO DAILY #30 tab 03/02/22 [Rx Confirmed 03/02/22] magnesium 250 mg tablet 250 mg PO DAILY 03/02/22 [History Confirmed 03/02/22] metformin 500 mg tablet,extended release 24 hr 500 mg PO BID tab 03/02/22 [History Confirmed 03/02/22] [facility] Medical History (Updated 03/02/22 @ 11:[address] Percy Trinh MD) Angina pectoris Atherosclerotic heart disease of [place] coronary artery without angina pectoris Essential hypertension GERD (gastroesophageal reflux disease) Hypothyroidism Presence of stent in coronary artery (~01/30/11) Pure hypercholesterolemia Type 2 diabetes mellitus Surgical History History of colectomy History of hemorrhoidectomy History of hysterectomy History of lumpectomy of both breasts History of repair of right rotator cuff (~01/10/21) History of tonsillectomy Presence of coronary angioplasty implant and graft (~01/30/11) Status post trigger finger release Family History Mother Myocardial infarction Father Myocardial infarction Hypertension Brother CAD (coronary artery disease) CVA (cerebral vascular accident) Brother Myocardial infarction CAD (coronary artery disease) Sister Myocardial infarction CAD (coronary artery disease) Social History Smoking Status: Never smoker alcohol intake: never substance use type: does not use caffeine: Yes Type: coffee Number of servings: 3 ROS Const Const: Positive for fatigue (very tired, I sleep all afternoon); Negative for weakness, frequent falls, excessive sweating, weight gain or weight loss Eyes Eyes: Negative for transient loss of vision, blurry vision or change in vision ENT ENT: Positive for balance problems; Negative for dizziness Cardio Chest Pain: Yes Character: other (heaviness) Onset: exercise (going upstairs) Location: mid sternal Duration: brief Relieving: other (occasional nitro which resolves; 4 nitro's per month) Palpitations: No Edema: None Muscle aches with walking: None Resp Respiratory: Positive for Cough (productive clear); Negative for SOB with activity or SOB at rest GI GI: Negative vomiting or vomiting blood/hematemesis : Negative for hematuria Musc Musc: Positive for balance problems; Negative for muscle aches/ myalgia, muscle weakness or joint pain Skin Skin: Negative non-healing lesions or rash Neuro Neuro: Positive for lightheadedness (occasional sitting to standing); Negative for dizziness, orthostatic symptoms, frequent falls, weakness or blurry vision Jan Hematologic/Lymphatic: Negative for easy bleeding Endo Endo: Positive for fatigue (very tired, I sleep all afternoon); Negative for excessive sweating Psych Psych: Negative for anxiety or depression Allergy Allergy/Immunology: Negative for hives and Negative for rash Cardiology Exam Const Appearance: cooperative, healthy appearing, comfortable, no acute distress, well developed and well groomed Nutritional Appearance: well nourished and overweight Orientation: alert, awake and oriented x3 Head Head: normal to inspection, normocephalic and atraumatic Ears: hearing grossly normal bilaterally Nose: external nose normal Face and Sinus: face symmetric Eyes Eyelids: eyelids normal Conjunctivae: conjunctivae normal Pupils: PERRL EOM: EOM intact bilaterally Neck Neck: normal visual inspection, full ROM and no JVD Carotids: normal carotid upstroke Chest Chest inspection: normal inspection of the chest, symmetric chest movement and normal respiratory effort; Negative cough Auscultation: Bilateral: Clear to Auscultation Cardio Rate: regular rate Rhythm: regular rhythm Heart sounds: S1 normal and S2 normal GI GI: normal to inspection, soft and bowel sounds present Neuro General: patient alert, patient awake, patient oriented x3 and moves all extremities Skin Skin: no rashes or lesions noted Extremities Pulses: Normal: Right Posterior Tibial Pulse, Left Posterior Tibial Pulse, Right Radial Pulse and Left Radial Pulse Lower Extremity Edema: None: Bilateral Psych Psychological: normal affect Supplemental Info Supplemental Information Echocardiogram from 08/24/2019: Interpretation Summary Left ventricular systolic function is normal. The estimated ejection fraction is 60 %. There is mild mitral annular calcification. Extension of the mitral annular calcification onto the posterior mitral valve leaflet. Mild (1+) mitral valve insufficiency. Mild to moderate (1-2+) tricuspid valve insufficiency. Trivial pulmonic valve insufficiency. Borderline to mildly dilated aortic root. Right ventricular systolic pressure estimated to be 27 mmHg. Transmitral diastolic flow velocities suggest diastolic dysfunction (pseudonormal pattern). It appears on 08/09/2017 she had a transthoracic echocardiogram performed. At that time her left ventricle was thought to be normal with an LVEF of 60%. There was a report of mild TR, normal RVSP, and a mildly dilated aortic root. It appears that she had a pharmacologic stress nuclear imaging study performed on 09/26/2015. According to the perfusion report it was thought to be negative with respect evidence of myocardial ischemia. Her gated LVEF was reported at 79%. Stress Test Report Date: 11-05-2020 Procedure: Pharmacologic stress nuclear imaging study Indications: CAD; PCI; preoperative cardiovascular evaluation Consent: Per the patient Procedure: The patient underwent pharmacologic (Regadenoson) evaluation with a peak heart rate of 139 beats per minute (95%predicted maximal heart rate) and a peak blood pressure of 132/62 mmHg. The baseline ECG demonstrated sinus rhythm. The peak pharmacologic ECG demonstrated no obvious ECG changes. There were occasional to frequent PACs during recovery. There was no complaint of chest discomfort during pharmacologic infusion or recovery. The examination was discontinued secondary to completion of protocol. Impression: 1. Pharmacologic (Regadenoson) evaluation 2. Peak pharmacologic ECG with no obvious ECG changes. 3. There were occasional to frequent PACs during recovery. 4. Nuclear images pending Myocardial perfusion imaging study: Technique: The patient was injected with 10.6 millicuries of technetium 99m Cardiolite and subsequently rest SPECT Cardiolite nuclear imaging was obtained in the horizontal long, vertical long, and short axis views. The patient underwent pharmacologic (Regadenoson) evaluation with a peak heart rate of 139 beats per minute (95% percent predicted maximal heart rate) and a peak blood pressure of 132/62 mmHg. The patient was injected with 31.7 millicuries of technetium 99m Cardiolite and subsequently stress SPECT Cardiolite nuclear imaging was obtained in the horizontal long, vertical long, and short axis views. A gated Cardiolite study at peak stress was obtained. Interpretation: Rest and stress SPECT Cardiolite nuclear imaging status post realignment, normalization, and attenuation correction demonstrate relative uniform tracer uptake and myocardial perfusion appearing within normal limits. There is end systolic thickening and brightening. The gated Cardiolite study demonstrates myocardial thickening and inward wall motion. The reported LVEF is 95%. Impression: 1. Rest and stress SPECT Cardiolite nuclear imaging demonstrate relative uniform tracer uptake and myocardial perfusion appearing within normal limits. 2. The gated Cardiolite study reports an LVEF of 95%. She has undergone diagnostic cardiac catheterization/PCI in the past. Per reports available for review it appears that on 08-18-2010 she had a [facility]. Her left main was patent. The LAD had a proximal moderately calcified area with 50 to 60% stenosis in the appearance of a healed ruptured plaque, the LCx had mild disease, the RCA had proximal 50% stenosis. She underwent intravascular ultrasound and FFR on the LAD. She was treated medically at the time. It appears that she presented back for reevaluation. On 03-23-2011 she had a repeat study performed. The results were similar with the exception the LAD was listed as a 70% complex lesion. It appears she underwent intravascular ultrasound and FFR. She subsequently underwent LAD PTCA/CHRISTELLE with a Xience 2.75 x 15 mm stent. Labs: No Data to Display Diagnostics: Electrocardiogram Echocardiogram Stress Test NM Stress Test Chest X-Ray Pulmonary: No Data to Display Assessment and Plan Assessment and Plan (1) Angina pectoris: Status: Acute Orders: Orders: Left Heart Cath/COR/LV Percut Today Basic Metabolic Profile (BMP) Today Partial Thromboplast Time Today Prothrombin Time w/INR Today Echo Complete Today CBC W/Diff, Automated Today Chest PA and Lateral Today Plan - Dr. Percy Trinh MD: The patient does have a history compatible with angina pectoris. She will initiate additional medical therapy with isosorbide mononitrate/Imdur 30 mg a day. Based upon her previous cardiovascular history and her ongoing symptoms she was asked to consider further definitive evaluation with diagnostic cardiac catheterization. The procedure and risk were discussed with her. She was agreeable to this approach. (2) Atherosclerotic heart disease of [place] coronary artery without angina pectoris: Status: Chronic Qualifiers: [place] vs. transplanted heart: [place] heart Qualified Code(s): I25.10 - Atherosclerotic heart disease of [place] coronary artery without angina pectoris Orders: Orders: 12 Lead EKG performed by [facility] Today Left Heart Cath/COR/LV Percut Today Partial Thromboplast Time Today Prothrombin Time w/INR Today Echo Complete Today CBC W/Diff, Automated Today Plan - Dr. Percy Trinh MD: The patient does have an tree of CAD. She has undergone previous noninvasive and invasive studies and interventional procedures as noted. Again based upon her worsening symptoms and use of nitroglycerin sublingual she will be treated medically and she was asked to undergo further evaluation with diagnostic cardiac catheterization. As noted above the procedure and risk were discussed with her and she was agreeable to this approach. (3) Presence of stent in coronary artery: Status: Chronic Comment: PTCA/CHRISTELLE to LAD 01/30/11 Orders: Orders: 12 Lead EKG performed by [facility] Today Left Heart Cath/COR/LV Percut Today Basic Metabolic Profile (BMP) Today Partial Thromboplast Time Today Prothrombin Time w/INR Today Echo Complete Today CBC W/Diff, Automated Today Chest PA and Lateral Today Plan - Dr. Percy Trinh MD: She does have a history of previous LAD PCI from 2010. There is concern as to whether or not she has had progression of LAD disease or progression of her other [place] coronary artery disease process that is bringing out her symptoms. She will continue medical therapy and evaluation as noted. (4) Pure hypercholesterolemia: Status: Chronic Orders: Orders: Left Heart Cath/COR/LV Percut Today Basic Metabolic Profile (BMP) Today Partial Thromboplast Time Today Prothrombin Time w/INR Today Echo Complete Today CBC W/Diff, Automated Today Chest PA and Lateral Today Plan - Dr. Percy Trinh MD: A copy of her lipid labs will be appreciated for continuity of care. (5) Essential hypertension: Status: Chronic Orders: Orders: Left Heart Cath/COR/LV Percut Today Basic Metabolic Profile (BMP) Today Partial Thromboplast Time Today Prothrombin Time w/INR Today Echo Complete Today CBC W/Diff, Automated Today Chest PA and Lateral Today Plan - Dr. Percy Trinh MD: She will need medical management. Plan Details Other Medications: New: isosorbide mononitrate ER 30 mg PO DAILY 30 tabs 3RF Additional Comments: Thank you for allowing me to participate in the care of y our patient. Please don't hesitate to call if any issues arise. This note was generated using a voice recognition system and there may be incorrect words, spelling or punctuation that were not noted when reviewing the office note prior to saving. Follow Up: 3 Months COVID (Procedure Consent) Procedure Criteria Procedure Criteria: Yes Elective The surgeon/proceduralist and patient have discussed in detail the risk of exposure to and/or potential harm posed by the COVID-19 virus with having a surgery/procedure at this time versus the risk of delaying the surgery/procedure. It is not possible to know either the risk of delaying the surgery or procedure or chance of getting an infection with perfect accuracy, but a joint decision was made between the patient and the surgeon/proceduralist to proceed at this time with the scheduled surgery/procedure as indicated on the consent form. Coding Level of Care Code Off vis,est,level 5 Diagnoses Angina pectoris I20.9 Atherosclerotic heart disease of [place] coronary artery without angina pectoris I25.10 [place] vs. transplanted heart: [place] heart Presence of stent in coronary artery Z95.5 Pure hypercholesterolemia E78.00 Essential hypertension I10 Coding Level of Care Code Off vis,est,level 5 Diagnoses Angina pectoris I20.9 Atherosclerotic heart disease of [place] coronary artery without angina pectoris I25.10 [place] vs. transplanted heart: [place] heart Presence of stent in coronary artery Z95.5 Pure hypercholesterolemia E78.00 Essential hypertension I10 03/02/22 1158<Electronically signed by Percy Trinh MD>Date Percy Ramon Signature:Date (if applicable) CC: Dr. Lo Weir MD ~ Assessment & Plan Addt'l Comments I have re-examined the patient. There are no clinical changes since date of exam
[2022-03-23 08:00] VITALS: BMI 25.9
--- NOTE | 2022-03-24 10:08 | CL.D_ITS ---
Patient Name: GARCIA AU Study Date: 03/24/2022 Performing: Percy Trinh MD Ht: 59.84 inches 152 cm : 1945 Wt: 132.28 lbs 60 kg Age: 76 Gender: female BSA: 1.56 PROCEDURE(S) PERFORMED [id number]-([id number])LHC/COR/LV CLINICAL PROFILE AND INDICATIONS Indications: Worsening Angina, Suspected CAD Heart Failure: None Stress/Imaging Date: 11/15/2020Stress Test with SPECT MPI: Negative Angina Classification Anginal Classification w/in 2 Weeks: CCS III CAD Presentations: Other: worsening angina CONCLUSIONS Elevated Left Ventricular End Diastolic Pressure Normal LV size, wall motion,and systolic function LVEF: by LV gram 65 % [place] Multivessel CAD LAD: stent: patent RECOMMENDATIONS Risk factor modification Medical therapy Case discussed / reviewed with Dr. Sanches of Interventional Cardiology DESCRIPTION OF PROCEDURE The patient arrived to the procedure lab. The risks and benefits of the procedure as well as a full d escription of our services here and current unavailability of surgical backup were fully explained to the patient and/or their significant other prior to the catheterization. The Timeout was completed, verifying the correct patient and procedure. The patient's procedural site was prepped and draped in the usual fashion. Local anesthetic was given subcutaneously to right radial region with Lidocaine 2% . Using a modified Seldinger technique, arterial access was obtained via the right radial artery, a 6 Fr sheath was inserted. Left Coronary Artery selective angiography was performed in multiple views u sing a 5 Fr. 4.0 [place] catheter. Right Coronary Artery selective angiography was then performed in mu ltiple views using a 5 Fr. 4.0 [place] catheter. Left Ventriculography was performed in DUMONT projection using a 5 Fr. [place] catheter. LV to AO pullback pressures were then recorded.The arterial sheath was pulled and a TR Band was applied for hemostasis CORONARY ANGIOGRAPHY DOMINANCE: Right Dominant LEFT HEART ASSESSMENT Left Ventricular Ejection Fraction: by LV Gram 65 % Normal LV wall motion Elevated Left Ventricular End Diastolic Pressure LVEDP: 22 mmHg LEFT MAIN: Angiographically normal LEFT ANTERIOR DESCENDING ARTERY: PROX LAD: Previously placed stent is patent with mild luminal irregularities CIRCUMFLEX ARTERY: PROX CIRC: Mild luminal irregularities MID CIRC: Mild luminal irregularities RIGHT CORONARY ARTERY: Mild luminal irregularities AORTIC ROOT: possible dilatation COMPLICATIONS No Complications PROCEDURE MEDICATIONS Versed 1 mg IV Fentanyl 50 mcg IV Oxygen: 2 L/min via nasal cannula Heparin given IA 03/24/2022 09:14:59 Verapamil 2.5mg, Ntg 100mcgs, 3000 units of Heparin given IA 03/24/2022 09:14:59 SUMMARY OF HEMODYNAMIC DATA Time AIR REST ECG 07:42:52 Art 118/42 (64) 09:08:19 AO 76/38 (54) SA 09:17:03 LV 83/10, 17 09:22:10 LV 99/4, 22 09:22:17 LV 96/6, 28 09:23:02 LV 90/6, 27 09:23:08 LVp 82/11, 28 09:23:15 AOp 93/46 (66) 09:23:20 Signed By Percy Trinh MD On 03/24/2022 10:06:52 Percy Trinh MD
== END 2022-03-24 11:50 | disposition home or self-care (01) ==
LOC: CLSP 07:28
PROVIDERS: PCP Internal Medicine; Referring Provider Internal Medicine Cardiovascular Disease; Visit Provider Internal Medicine Cardiovascular Disease
DX: I25.119 Atherosclerotic heart disease of native coronary artery with unspecified angina pectoris (principal); E11.9 Type 2 diabetes mellitus without complications; E78.5 Hyperlipidemia, unspecified; E78.00 Pure hypercholesterolemia, unspecified; I10 Essential (primary) hypertension; Z79.84 Long term (current) use of oral hypoglycemic drugs; E03.9 Hypothyroidism, unspecified; Z95.5 Presence of coronary angioplasty implant and graft; Z82.49 Family history of ischemic heart disease and other diseases of the circulatory system; R05.9 Cough, unspecified
CPT/HCPCS: 93458; 99152; 99153; J7040; C1894; Q9967

== ENCOUNTER → 2022-03-26 | Outpatient (CLI) | payer MEDICARE, OTHER, SELFPAY ==
[2022-03-26 11:30] LABS: Anion Gap 3 (5-15); BUN 15 mg/dL (7-18); BUN/Creat Ratio 12.5 RATIO (10-20); Calcium,Total 8.9 mg/dL (8.5-10.1); Chloride 103 mmol/L (98-107); EST Glomerular Filtration Rate 46 mL/min (>60); Est Glom Filt Rate - Afr Amer 56 mL/min (>60); Glucose 245 mg/dL (74-106); Potassium 3.8 mmol/L (3.5-5.1); Sodium Level 136 mmol/L (136-145)
== END | disposition home or self-care (01) ==
LOC: LAB 10:17
PROVIDERS: PCP Internal Medicine; Referring Provider Internal Medicine Cardiovascular Disease; Visit Provider Internal Medicine Cardiovascular Disease
DX: I25.10 Atherosclerotic heart disease of native coronary artery without angina pectoris (principal); E78.00 Pure hypercholesterolemia, unspecified; I10 Essential (primary) hypertension; Z95.5 Presence of coronary angioplasty implant and graft
CPT/HCPCS: 36415; 80048

== ENCOUNTER → 2022-06-03 | Outpatient (CLI) | payer MEDICARE, OTHER, SELFPAY ==
[2022-06-03 15:16] LABS: Anion Gap 5 (5-15); BUN 20 mg/dL (7-18); BUN/Creat Ratio 13.8 RATIO (10-20); Calcium,Total 10.1 mg/dL (8.5-10.1); Chloride 105 mmol/L (98-107); Creatinine, Serum 1.45 mg/dL (0.55-1.02); EST Glomerular Filtration Rate 37 mL/min (>60); Est Glom Filt Rate - Afr Amer 45 mL/min (>60); Glucose 181 mg/dL (74-106); Potassium 3.8 mmol/L (3.5-5.1); Sodium Level 138 mmol/L (136-145)
== END | disposition home or self-care (01) ==
PROVIDERS: PCP Internal Medicine; Referring Provider Physician Assistant Medical; Visit Provider Physician Assistant Medical
DX: I48.91 Unspecified atrial fibrillation (principal)
CPT/HCPCS: 36415; 80048

== ENCOUNTER 2022-11-16 13:16 | Emergency (ER) | payer MEDICARE, OTHER, SELFPAY ==
[2022-11-16 13:17] VITALS: BP 136/115; PULSE 138; RESP 18; TEMP 36.3; O2SAT 95; BMI 26.5
--- NOTE | 2022-11-16 13:33 | EKG12_ITS ---
Test Reason : PALP Blood Pressure : / mmHG Vent. Rate : 103 BPM Atrial Rate : 293 BPM P-R Int : 000 ms QRS Dur : 062 ms QT Int : 340 ms P-R-T Axes : 000 048 -40 degrees QTc Int : 445 ms Atrial flutter with variable A-V block Low voltage QRS Nonspecific ST and T wave abnormality Abnormal ECG When compared with ECG of 31-DEC-2020 09:33, Significant changes have occurred Confirmed by BRIANNA SIMPSON, BREE ([id number]), editorial director DANA CARRINGTON ([id number]) on 11/18/2022 1:05:23 PM Referred By: MAGALY Confirmed By:BREE REED MD
[2022-11-16 13:46] LABS: Absolute Lymphocyte Count 1.61 X10^3/uL (0.83-4.51); Absolute Neutrophil Count 6.8 X10^3/uL (2.0-7.7); Basophil# 0.05 X10^3/uL; Basophil% 0.5 % (0-1); Eosinophil# 0.09 X10^3/uL; Eosinophils% 0.9 % (0-5); Hematocrit 37.5 % (37-47); Hemoglobin 11.5 g/dL (12.0-15.0); Lymphocyte # 1.61 X10^3/ul (0.83-4.51); Lymphocyte % 16.9 % (19-41); Mean Corp Hgb Conc 30.7 g/dL (32-36); Mean Corpuscular Hgb 30.4 pg (27.0-32.0); Mean Corpuscular Volume 99.2 fL (81-99); Mean Platelet Vol. 10.3 fl (6.2-12.0); Monocyte# 0.92 X10^3/uL; Monocyte% 9.7 % (0-10); NRBC Flagged by Analyzer 0 % (0-5); Neutrophil # 6.79 X10^3/uL (2.7-7.7); Neutrophil % 71.4 % (47-70); Platelet Count 288 K/mm3 (150-450); RBC Distribution Width CV 14.4 % (11.6-14.6); RBC Distribution Width SD 51.7 fl (35.1-43.9); Red Blood Count 3.78 M/mm3 (4.2-5.4); White Blood Count 9.5 K/mm3 (4.4-11.0)
[2022-11-16 14:03] LABS: Anion Gap 5 (5-15); BUN 10 mg/dL (7-18); BUN/Creat Ratio 8.1 RATIO (10-20); Calcium,Total 9.3 mg/dL (8.5-10.1); Chloride 106 mmol/L (98-107); Creatinine, Serum 1.24 mg/dL (0.55-1.02); EST Glomerular Filtration Rate 45 mL/min (>60); Est Glom Filt Rate - Afr Amer 54 mL/min (>60); Estimated Creatinine Clearance 27.29 ml/min; Glucose 157 mg/dL (74-106); Potassium 3.9 mmol/L (3.5-5.1); Sodium Level 138 mmol/L (136-145); Troponin-I HS 15 pg/mL (3.0-54.0)
--- NOTE | 2022-11-16 14:20 | RAD_ITS ---
STUDY: X-RAY CHEST REASON FOR EXAM: Female, 77 years old. SOB, PALPITATIONS, COUGH TECHNIQUE: Single AP portable view of the chest. COMPARISON: Comparison is made with prior study 03/19/2022. FINDINGS: Minimal increased markings at the lung bases suggestive of mild bibasilar atelectasis. Left. Both costophrenic angles. Normal size heart. Normal mediastinum and elise. Normal visualized pulmonary arteries. There is atherosclerotic tortuosity of the aortic arch and descending thoracic aorta. There are diffuse degenerative changes of the visualized thoracic spine. Normal visualized ribs, clavicles, and shoulders. There is no demonstrated abnormality of the visualized soft tissue structures of the upper abdomen. RAD/Chest 1 View (Portable) IMPRESSION: Mild degree of bibasilar atelectasis and blunting of both costophrenic angles. Electronically Signed: Juan Virgen MD at 15:12 EST ,
[2022-11-16 14:27] VITALS: PULSE 114; O2SAT 94
--- NOTE | 2022-11-16 14:41 | EX.ED.DYSGE1 ---
HPI History of Present Illness Chief Complaint: Palpitations Narrative Narrative: 77-year-old female past medical history of atrial fibrillation, on Eliquis and metoprolol presents with a few days worth of upper respiratory infection type symptoms. She states that she has been coughing and wheezing, and has a buildup of phlegm. She denies any fevers or chills. She states on occasion she feels short of breath and she has had bilateral leg swelling. This has been ongoing for at least a few days. She was at the chief digital officer office today who told her to come to the emergency department or at least urgent care to get a chest x-ray to make sure she does not have pneumonia. On occasion over the last few days she has felt rapid heart rate and that she went into atrial fibrillation but usually calms down after she sits. Quite frankly, she presents to make sure that she does not have a pneumonia. [facility] Medical History Angina pectoris Atherosclerotic heart disease of [place] coronary artery without angina pectoris Essential hypertension GERD (gastroesophageal reflux disease) Hypothyroidism New onset atrial fibrillation PAF (paroxysmal atrial fibrillation) Presence of stent in coronary artery (~01/30/11) Pure hypercholesterolemia Type 2 diabetes mellitus Home Medications levothyroxine 75 mcg tablet 75 mcg PO DAILY 04/11/15 [History Last Taken 03/24/22] multivitamin with folic acid 400 mcg tablet 1 tab PO DAILY 04/11/15 [History Last Taken 04/10/15] nitroglycerin 0.4 mg sublingual tablet 0.4 mg sublingual Q5M PRN Chest Pain 04/11/15 [History Last Taken Unknown] rosuvastatin 40 mg tablet 40 mg PO QHS 04/11/15 [History Last Taken 04/09/15 21:00] aspirin 81 mg tablet,delayed release (Adult Low Dose Aspirin) 81 mg PO DAILY 07/26/19 [History Last Taken 03/24/22] glipizide 5 mg tablet 5 mg PO BID 07/27/19 [History Last Taken 03/23/22] lactobacillus combination no.9 4 billion cell capsule (Adult 50 Plus Probiotic) 4,000 mmu cells PO DAILY 07/27/19 [History Last Taken Unknown] cholecalciferol (vitamin D3) 50 mcg (2,000 unit) capsule 50 mcg PO DAILY 11/11/20 [History Last Taken Unknown] lisinopril 10 mg tablet 10 mg PO DAILY 11/11/20 [History Last Taken Unknown] famotidine 20 mg tablet 20 mg PO BID 07/06/22 [History Last Taken Unknown] metoprolol tartrate 25 mg tablet 50 mg PO BID #120 tabs 07/14/22 [Rx Last Taken Unknown] apixaban 5 mg tablet (Eliquis) 5 mg PO BID #180 tabs 10/12/22 [Rx Last Taken Unknown] isosorbide mononitrate 60 mg tablet,extended release 24 hr 60 mg PO DAILY #90 tabs 10/12/22 [Rx Last Taken Unknown] metformin 500 mg tablet,extended release 24 hr 1,000 mg PO BID 10/12/22 [History Last Taken Unknown] albuterol sulfate 90 mcg/actuation aerosol inhaler (Ventolin HFA) 1 - 2 puff inhalation Q4H PRN PRN Wheezing #1 ea 11/16/22 [Rx Last Taken Unknown] Allergy/AdvReac Type Severity Reaction Status Date / Time hydrochlorothiazide Allergy headache Verified 11/16/22 13:19 lorazepam [From Ativan] Allergy Unknown Verified 11/16/22 13:19 Sulfa (Sulfonamide Allergy Unknown Verified 11/16/22 13:19 Antibiotics) anti-inflammatories Allergy Swelling Uncoded 11/16/22 13:19 Family History Mother Myocardial infarction Father Myocardial infarction Hypertension Brother CAD (coronary artery disease) CVA (cerebral vascular accident) Brother Myocardial infarction CAD (coronary artery disease) Sister Myocardial infarction CAD (coronary artery disease) Surgical History History of colectomy History of hemorrhoidectomy History of hysterectomy History of left heart catheterization (LHC) (~03/24/22) History of lumpectomy of both breasts History of repair of right rotator cuff (~01/10/21) History of tonsillectomy Presence of coronary angioplasty implant and graft (~01/30/11) Status post trigger finger release Social History Smoking Status: Never smoker alcohol intake: never substance use type: does not use caffeine: Yes Type: coffee Number of servings: 3 ROS ROS ED ROS Narrative Constitutional: No fever, no chills. HEENT: No sore throat. No neck pain. No loss of vision. No rhinorrhea. Cardiovascular: No chest pain. Intermittent palpitations. Bilateral pedal edema. Respiratory: Positive cough, occasional shortness of breath. Abdominal: No abdominal pain. No nausea. No vomiting. Genitourinary: No dysuria. No hematuria. Musculoskeletal: No myalgias. No arthralgias. Neurologic: No headaches. No dizziness. No lightheadedness. Skin: No rash. No change in color. Psychiatric: No depression. No anxiety. EXAM Physical Exam Narrative Exam Narrative: Afebrile. Vital signs noted. HEENT: Normocephalic. Atraumatic. PERRL, EOMI. Neck soft and supple. No point tenderness or step off. Cardiovascular: Irregular rhythm with intermittent tachycardia at 103. No murmurs, rubs, or gallops appreciated. Respiratory: No tachypnea. Lungs clear to auscultation bilaterally decreased breath sounds bilateral bases. Speaking in full sentences. Moving a good amount of air. Gastrointestinal: Abdomen soft, nontender, with normoactive bowel sounds. No rebound or guarding. Neurological: Awake. Alert. Nonfocal, nonlateralizing. Skin: No rash. Normal color. No pallor. Musculoskeletal: Trace bilateral symmetric pedal edema. Full range of motion extremities. Const Vital Signs: 11/16/22 13:17 11/16/22 14:27 11/16/22 14:27 Temperature 97.3 F L Temperature Source Temporal Pulse Rate 138 H 114 H Respiratory Rate 18 Blood Pressure 136/115 H Blood Pressure Mean 122 Pulse Ox 95 94 94 Oxygen Delivery Method Room Air Room Air Room Air MDM MDM MDM Narrative Medical decision making narrative: Work-up was started in triage. Her EKG interpreted by myself demonstrates atrial flutter with variable AV block at 103 bpm which is rate controlled. No acute ST changes. No STEMI. CBC shows normal white count of 9.5, hemoglobin stable 11.5 with hematocrit 37.5. Platelet count normal at 288. She has a creatinine of 1.24 and a normal BUN of 10. High-sensitivity troponin is 15. I feel that this is greater than a 6-hour troponin as her symptoms of been ongoing for few days. Chest x-ray interpreted by myself shows no acute process, no pneumonia. I do not feel antibiotics are indicated. I will write her prescription for an albuterol inhaler to use as needed. She states she was formally asthmatic so she knows how to use it. Pulse ox currently 95% on room air without evidence of hypoxia. I feel she can be discharged safely home with follow-up. Her COVID and influenza swabs are also negative. She will follow-up with her primary care provider, Dr. Weir. Return instructions were reviewed. Disposition is discharged home in stable condition. Lab Data Attestation: I reviewed the patient's lab results. Labs: Laboratory Results - last 24 hr 11/16/22 11/16/22 13:39 13:39 WBC 9.5 RBC 3.78 L Hgb 11.5 L Hct 37.5 MCV 99.2 H MCH 30.4 MCHC 30.7 L RDW Std Deviation 51.7 H RDW Coeff of Paty 14.4 Plt Count 288 MPV 10.3 Immature Gran % (Auto) 0.600 Neut % (Auto) 71.4 H Lymph % (Auto) 16.9 L Story % (Auto) 9.7 Eos % (Auto) 0.9 Baso % (Auto) 0.5 Absolute Neuts (auto) 6.8 Absolute Lymphs (auto) 1.61 Nucleated RBC % 0 Sodium 138 Potassium 3.9 Chloride 106 Carbon Dioxide 27.0 Anion Gap 5 BUN 10 Creatinine 1.24 H Estim Creat Clear Calc 27.29 Est GFR (MDRD) Af Amer 54 L Est GFR (MDRD) Non-Af 45 L BUN/Creatinine Ratio 8.1 L Glucose 157 H Calcium 9.3 Troponin I High Sens 15 Radiography Diagnostic Testing: Clinical Impression(s) from Imaging Studies Chest X-Ray 11/16/22 14:20 IMPRESSION: Mild degree of bibasilar atelectasis and blunting of both costophrenic angles. Electronically Signed: Juan Virgen MD at 15:12 EST , Discharge Plan Triage Chief Complaint: Palpitations ED Provider: Enio Garvey Dx/Rx/DC Orders Clinical Impression: PAF (paroxysmal atrial fibrillation), Palpitations, Bronchitis Instructions: ED AFIB, ED Bronchitis with Wheezing (Adult), ED Palpitations Prescriptions: New albuterol sulfate [Ventolin HFA] 90 mcg/actuation HFA aerosol inhaler 1 - 2 puff inhalation Q4H PRN PRN (Reason: Wheezing) Qty: 1 0RF No Action glipizide 5 mg tablet 5 mg PO BID Adult 50 Plus Probiotic 4 billion cell capsule 4,000 mmu cells PO DAILY aspirin [Adult Low Dose Aspirin] 81 mg tablet,delayed release (DR/EC) 81 mg PO DAILY cholecalciferol (vitamin D3) 50 mcg (2,000 unit) capsule 50 mcg PO DAILY metformin 500 mg tablet extended release 24 hr 1,000 mg PO BID famotidine 20 mg tablet 20 mg PO BID isosorbide mononitrate 60 mg tablet extended release 24 hr 60 mg PO DAILY Qty: 90 3RF Eliquis 5 mg tablet 5 mg PO BID Qty: 180 3RF levothyroxine 75 MCG tablet 75 mcg PO DAILY Label Comments: thyroid supplement nitroglycerin 0.4 MG tablet 0.4 mg SUBLINGUAL Q5M PRN (Reason: Chest Pain) Label Comments: chest pain rosuvastatin 40 MG tablet 40 mg PO QHS Label Comments: lowers cholesterol multivitamin with folic acid 1 TABLET tablet 1 tab PO DAILY Label Comments: supplement lisinopril 10 mg tablet 10 mg PO DAILY Label Comments: blood pressure metoprolol tartrate 25 mg tablet 50 mg PO BID Qty: 120 6RF Primary Care Provider: Lo Weir Referrals: Lo Weir MD [Primary Care Provider] - 1 Week if not improving Disposition Disposition: Home, Self Care Discharge Date/Time: 11/16/22 15:33
== END 2022-11-16 15:33 | disposition home or self-care (01) ==
LOC: ED 15:05
PROVIDERS: Emergency Provider Emergency Medicine; PCP Internal Medicine; Visit Provider Emergency Medicine
DX: I48.0 Paroxysmal atrial fibrillation (principal); I48.92 Unspecified atrial flutter; E11.9 Type 2 diabetes mellitus without complications; J40 Bronchitis, not specified as acute or chronic; R00.2 Palpitations; I25.10 Atherosclerotic heart disease of native coronary artery without angina pectoris; I10 Essential (primary) hypertension; E78.00 Pure hypercholesterolemia, unspecified; Z79.01 Long term (current) use of anticoagulants; Z20.822 Contact with and (suspected) exposure to COVID-19
CPT/HCPCS: 71045; 80048; 84484; 85025; 87428; 93005; 99284; A4216

== ENCOUNTER → 2023-09-09 | Outpatient (CLI) | payer MEDICARE, OTHER, SELFPAY ==
--- NOTE | 2023-09-09 15:50 | STRESSREP_ITS ---
Stress Test Report Date: 09/09/2023 Procedure: Pharmacologic stress nuclear imaging study Indications: Coronary artery disease Consent: Per the patient Procedure: The patient underwent pharmacologic (Regadenoson 0.4mg ) evaluation with a peak heart rate of 137 beats per minute (95%predicted maximal heart rate) and a peak blood pressure of 138/74 mmHg. The baseline ECG demonstrated atrial fibrillation. Nonspecific ST-T wave changes noted. The peak pharmacologic ECG was nondiagnostic based on baseline abnormalities. [There were no cardiac dysrhythmias pretest, during pharmacologic infusion, or recovery]. [There was no complaint of chest discomfort during pharmacologic infusion or recovery]. The patient was injected with 11.2 millicuries of technetium 99m Cardiolite and subsequently rest SPECT Cardiolite nuclear imaging was obtained in the horizontal long, vertical long, and short axis views. The patient underwent pharmacologic (Regadenoson) evaluation. The patient was injected with 33.3 millicuries of technetium 99m Cardiolite and subsequently stress SPECT Cardiolite nuclear imaging was obtained in the horizontal long, vertical long, and short axis views. A gated Cardiolite study at peak stress was obtained. The examination was stopped secondary to completion of protocol. Rest and stress SPECT Cardiolite nuclear imaging status post realignment, normalization, and attenuation correction demonstrate mildly reduced uptake at the apex which remains unchanged post pharmacological stress. Likely soft tissue attenuation artifact. [There is end systolic thickening and brightening]. [The gated Cardiolite study demonstrates myocardial thickening and inward wall motion]. The reported LVEF is 78%. Impression: 1. Pharmacologic (Regadenoson) evaluation 2. Peak pharmacologic ECG with no diagnostic changes. 3. Baseline atrial fibrillation. 5. [Rest and stress SPECT Cardiolite nuclear imaging demonstrate relative u niform tracer uptake and myocardial perfusion appearing within normal limits]. 6. The gated Cardiolite study reports an LVEF of 78%. This note was generated with interclickation software. It may contain incorrect words, spelling, and punctuation that were not noted in checking the note before signing.
== END | disposition home or self-care (01) ==
LOC: CVS 05:55
PROVIDERS: PCP Internal Medicine; Referring Provider Nurse Practitioner Family; Visit Provider Nurse Practitioner Family
DX: R07.9 Chest pain, unspecified (principal); I10 Essential (primary) hypertension; E78.00 Pure hypercholesterolemia, unspecified; Z95.5 Presence of coronary angioplasty implant and graft
CPT/HCPCS: 78452; 93017; A9500; A4216; J2785

== ENCOUNTER → 2024-08-29 | Outpatient (CLI) | payer MEDICARE, OTHER, SELFPAY ==
--- NOTE | 2024-08-29 06:57 | ECHOD_ITS ---
Reason For Study: PAF, DIZZINESS Procedure This was a 2D Doppler, Color Flow transthoracic echocardiogram. Exam performed in department. Left Ventricle Mild concentric left ventricular hypertrophy. Mild generalized left ventricular hypokinesis. Estimated EF 45%. Grade 3 diastolic dysfunction. Right Ventricle Normal right ventricle. Atria There is moderate biatrial dilatation. Mitral Valve Mild mitral annular calcification. Mild (1+) mitral valve insufficiency. Tricuspid Valve Moderately severe (3+) tricuspid valve insufficiency. Right ventricular systolic pressure estimated to be 41 mmHg. Aortic Valve Trisinus/trileaflet aortic valve. Pulmonic Valve The pulmonic valve is not well visualized. Mild (1+) pulmonic valve insufficiency. Great Vessels Normal sized aortic root. Pericardium/Pleural Small pericardial effusion. MMode/2D Measurements & Calculations LVIDd: 2.9 cm IVSd: 1.2 cm Ao root diam: 3.6 cm LVIDs: 2.0 cm LVPWd: 1.1 cm RVDd: 3.8 cm FS: 31.1 % LAV(MOD-bp): 63.8 ml LVAd ap4: 16.1 cm2 LVAd ap2: 18.0 cm2 LAV(MOD-bp) Indexed: 41.9 ml/m2 LVLd ap4: 6.2 cm LVLd ap2: 6.4 cm LAV(MOD-sp2): 59.1 ml EDV(MOD-sp4): 36.9 ml EDV(MOD-sp2): 42.4 ml LAV(MOD-sp4): 63.1 ml EDV(sp4-el): 35.6 ml EDV(sp2-el): 43.0 ml LVAs ap4: 10.5 cm2 LVAs ap2: 11.8 cm2 LVLs ap4: 5.5 cm LVLs ap2: 5.7 cm ESV(MOD-sp4): 17.0 ml ESV(MOD-sp2): 20.7 ml ESV(sp4-el): 17.1 ml ESV(sp2-el): 20.9 ml EF(MOD-sp4): 53.8 % EF(MOD-sp2): 51.1 % EF(sp4-el): 52.0 % SV(MOD-sp4): 19.9 ml SV(MOD-sp2): 21.7 ml SV(sp4-el): 18.5 ml LA dimension(2D): 4.1 cm LA A4 area: 21.0 cm2 RA A4 area: 17.6 cm2 TAPSE: 1.3 cm Time Measurements MV dec time: 0.11 sec Doppler Measurements & Calculations MV E max piero: 106.5 cm/sec Lat Peak E' Piero: 7.9 cm/sec Med Peak E' Piero: 7.1 cm/sec MV A max piero: 36.1 cm/sec E/E' lat: 13.5 E/E' med: 15.0 MV E/A: 2.9 Ao V2 max: 75.8 cm/sec LV V1 max: 55.1 cm/sec PA V2 max: 78.3 cm/sec Ao max P.3 mmHg LV V1 max P.2 mmHg PA V2 mean: 53.6 cm/sec Ao V2 mean: 49.7 cm/sec LV V1 mean P.64 mmHg Ao mean P.1 mmHg LV V1 mean: 38.0 cm/sec Ao V2 VTI: 12.7 cm LV V1 VTI: 10.6 cm AV (velocity ratio): 0.83 PI end-d piero: 123.4 cm/sec TR max piero: 255.7 cm/sec PI dec slope: 144.9 cm/sec2 TR max P.1 mmHg ECHO/Echo Complete Interpretation Summary Mild concentric left ventricular hypertrophy. Mild generalized left ventricular hypokinesis. Estimated EF 45%. Grade 3 diasto lic dysfunction. There is moderate biatrial dilatation. Mild (1+) mitral valve insufficiency. Moderately severe (3+) tricuspid valve insufficiency. Right ventricular systolic pressure estimated to be 41 mmHg. Small pericardial effusion. Ordering Physician: Tae Capellan Referring Physician: Lo Weir Performed By: Nazanin Cannon, RDCS, RVT
== END | disposition home or self-care (01) ==
LOC: CVS 06:56
PROVIDERS: PCP Internal Medicine; Referring Provider Internal Medicine Cardiovascular Disease; Visit Provider Internal Medicine Cardiovascular Disease
DX: I48.0 Paroxysmal atrial fibrillation (principal)
CPT/HCPCS: 93306

== ENCOUNTER → 2024-09-27 | Outpatient (CLI) | payer MEDICARE, OTHER, SELFPAY ==
--- NOTE | 2024-09-27 12:58 | ECHOL_ITS ---
Reason For Study: PERICARDIAL EFFUSION Procedure This was a limited 2D transthoracic echocardiogram. Exam performed in department. Left Ventricle Mild left ventricular concentric hypertrophy. Mild generalized hypokinesis. Estimated EF 45%. Right Ventricle Mildly dilated right ventricle. Normal systolic function. Atria There is severe biatrial dilatation. Mitral Valve Mild (1+) mitral valve insufficiency. Tricuspid Valve Severe (4+) tricuspid valve insufficiency. Right ventricular systolic pressure estimated to be 41 mmHg. Aortic Valve Trisinus/trileaflet aortic valve. Pulmonic Valve The pulmonic valve is not well visualized. Great Vessels The inferior vena cava is dilated. Pericardium/Pleural Trivial pericardial effusion. MMode/2D Measurements & Calculations LVIDd: 3.1 cm IVSd: 1.5 cm LAV(MOD-bp): 54.3 ml LVIDs: 2.2 cm LVPWd: 1.5 cm LAV(MOD-bp) Indexed: 35.7 ml/m2 RVDd: 3.9 cm FS: 29.2 % LAV(MOD-sp2): 55.9 ml LAV(MOD-sp4): 51.9 ml SV(MOD-sp4): 14.5 ml LVAd ap4: 15.7 cm2 LVAd ap2: 16.3 cm2 LVLd ap4: 6.4 cm LVLd ap2: 6.4 cm SI(MOD-sp4): 9.5 ml/m2 EDV(MOD-sp4): 31.9 ml EDV(MOD-sp2): 34.2 ml EDV(sp4-el): 32.6 ml EDV(sp2-el): 35.4 ml LVAs ap4: 11.1 cm2 LVAs ap2: 11.0 cm2 LVLs ap4: 5.8 cm LVLs ap2: 5.8 cm ESV(MOD-sp4): 17.4 ml ESV(MOD-sp2): 18.0 ml ESV(sp4-el): 18.1 ml ESV(sp2-el): 17.7 ml EF(MOD-sp4): 45.5 % EF(MOD-sp2): 47.5 % EF(sp4-el): 44.6 % SV(MOD-sp2): 16.3 ml SV(sp4-el): 14.5 ml Ao sinus diam: 2.8 cm SI(MOD-sp2): 10.7 ml/m2 LA dimension(2D): 4.4 cm LA A4 area: 20.0 cm2 RA A4 area: 20.4 cm2 TAPSE: 0.83 cm Doppler Measurements & Calculations Lat Peak E' Piero: 7.7 cm/sec Med Peak E' Piero: 7.3 cm/sec TR max piero: 255.9 cm/sec TR max P.2 mmHg ECHO/Echo, Limited Study Interpretation Summary Mild left ventricular concentric hypertrophy. Mild generalized hypokinesis. Est imated EF 45%. Mildly dilated right ventricle. There is severe biatrial dilatation. Mild (1+) mitral valve insufficiency. Severe (4+) tricuspid valve insufficiency. Right ventricular systolic pressure estimated to be 41 mmHg. Trivial pericardial effusion. Ordering Physician: Kassy Gutierrez Referring Physician: Lo Weir M.D. Performed By: Joana Salvador RDCS
== END | disposition home or self-care (01) ==
LOC: CVS 12:53
PROVIDERS: PCP Internal Medicine; Referring Provider Physician Assistant Medical; Visit Provider Physician Assistant Medical
DX: I31.39 Other pericardial effusion (noninflammatory) (principal)
CPT/HCPCS: 93308

== ENCOUNTER 2025-01-07 11:54 | Emergency (ER) | payer MEDICARE, SELFPAY ==
[2025-01-07 11:58] VITALS: BP 97/58; PULSE 82; RESP 19; TEMP 36.4; O2SAT 97; BMI 25.4
--- NOTE | 2025-01-07 12:03 | EKG12_ITS ---
Test Reason : CP Blood Pressure : */* mmHG Vent. Rate : 83 BPM Atrial Rate : * BPM P-R Int : * ms QRS Dur : 72 ms QT Int : 398 ms P-R-T Axes : * 94 -73 degrees QTcB Int : 467 ms Atrial fibrillation Rightward axis Low voltage QRS T wave abnormality, consider inferior ischemia Abnormal ECG Confirmed by BRIANNA SIMPSON, BREE ([id number]), film and video editor COLLETTE PAL ([id number]) on 01/08/2025 10:50:40 AM Referred By: BRYSON/ROSA Confirmed By: BREE REED MD
--- NOTE | 2025-01-07 12:03 | RAD_ITS ---
PROCEDURE: CHEST 1 VIEW (PORTABLE) REASON FOR EXAM: pain TECHNIQUE: Frontal view of the chest. COMPARISON: Reviewed. FINDINGS: The cardiac and mediastinal contours are normal. The lungs are clear. RAD/Chest 1 View (Portable) IMPRESSION: NEGATIVE SINGLE VIEW OF THE CHEST. Reading Location: [facility]
--- NOTE | 2025-01-07 12:12 | ED.VIS.CHEST ---
HPI History of Present Illness Chief Complaint: Chest Pain Informant: patient Onset/Context/Timing Onset: Today and Hours Activity at onset: gradual Timing: Continuous Quality: Positive for Aching and Pain Location: Substernal Current Severity: Gone Maximum Severity: Mild Worsened By: Nothing Relieved By: Nothing Associated Symptoms: Positive for Nausea, Diaphoresis and Dyspnea Narrative Narrative: 79-year-old female history of CAD with 1 stent, A-fib on Eliquis and diabetes. States that she was at son's culture today around 9:45 AM developed midsternal chest pain no radiation. Lasted about an hour and a half. She gave herself 2 sublingual nitro and the pain resolved. Currently she is symptom-free. She said she has a mild shortness of breath nausea and diaphoresis with the discomfort. She has had this before. Denies any significant exertional chest pain recently. Last heart cath was about 3 years ago or so she believes. Denies any recent illness. Prior Similar Symptoms: Yes Recent Illness/Hospitalization: No CVD Risk Factors: Positive for Hypertension and Diabetes; Negative for Smoking PE Risk Factors: Negative for Recent Travel/Surgery, Recent Immobilization, Prior DVT or PE, Cancer or OCP + Smoking + >/=35 TAD Risk Factors: Negative for Marfan's Syndrome [facility] Medical History Longstanding persistent atrial fibrillation Preoperative cardiovascular examination Chest pain PAF (paroxysmal atrial fibrillation) New onset atrial fibrillation Angina pectoris Type 2 diabetes mellitus Presence of stent in coronary artery (~01/30/11) Atherosclerotic heart disease of [place] coronary artery without angina pectoris Pure hypercholesterolemia Essential hypertension GERD (gastroesophageal reflux disease) Hypothyroidism Home Medications ?Medication ?Instructions ?Recorded ?Last Taken ?Type levothyroxine 75 mcg tablet 75 mcg PO DAILY 04/11/15 03/24/22 History multivitamin with folic acid 400 1 tab PO DAILY 04/11/15 04/10/15 History mcg tablet nitroglycerin 0.4 mg sublingual 0.4 mg sublingual Q5M PRN Chest 04/11/15 Unknown History tablet Pain aspirin 81 mg tablet,delayed 81 mg PO DAILY 07/26/19 03/24/22 History release (Adult Low Dose Aspirin) glipizide 5 mg tablet 5 mg PO BID 07/27/19 03/23/22 History albuterol sulfate 90 mcg/actuation 1 - 2 puff inhalation Q4H PRN PRN 11/16/22 Unknown Rx aerosol inhaler (Ventolin HFA) Wheezing #1 ea omeprazole 20 mg capsule,delayed 20 mg PO DAILY 08/20/23 Unknown History release cholecalciferol (vitamin D3) 50 4,000 unit PO DAILY 12/22/23 Unknown History mcg (2,000 unit) capsule furosemide 20 mg tablet (Lasix) 20 mg PO DAILY PRN 01/19/24 Unknown History acetaminophen 500 mg tablet 1,000 mg PO ONCE PRN 02/23/24 Unknown History ferrous sulfate 325 mg (65 mg 325 mg PO DAILY 02/23/24 Unknown History iron) tablet folic acid 800 mcg tablet 0.8 mg PO DAILY 02/23/24 Unknown History metformin 500 mg tablet,extended 500 mg PO BID 02/23/24 Unknown History release 24 hr metoprolol tartrate 25 mg tablet 25 mg PO BID 02/23/24 Unknown History lisinopril 10 mg tablet 10 mg PO DAILY #90 tabs 11/10/24 Unknown Rx rosuvastatin 40 mg tablet 40 mg PO QHS #90 tabs 11/10/24 Unknown Rx apixaban 5 mg tablet (Eliquis) 5 mg PO BID #180 tabs 11/13/24 Unknown Rx isosorbide mononitrate 60 mg See Rx Instructions .Route 11/13/24 Unknown Rx tablet,extended release 24 hr .COMPLEX #90 tabs Allergy/AdvReac Type Severity Reaction Status Date / Time hydrochlorothiazide Allergy headache Verified 01/07/25 11:58 lorazepam (From Ativan) Allergy Unknown Verified 01/07/25 11:58 NSAIDS (Non-Steroidal Allergy Swelling Verified 01/07/25 11:58 Anti-Inflamma Sulfa (Sulfonamide Allergy Unknown Verified 01/07/25 11:58 Antibiotics) Family History Mother Myocardial infarction Father Myocardial infarction Hypertension Brother CAD (coronary artery disease) CVA (cerebral vascular accident) Brother Myocardial infarction CAD (coronary artery disease) Sister Myocardial infarction CAD (coronary artery disease) Surgical History H/O shoulder replacement History of left heart catheterization (LHC) (~03/24/22) History of repair of right rotator cuff (~01/10/21) History of tonsillectomy History of lumpectomy of both breasts History of hemorrhoidectomy History of hysterectomy History of colectomy Status post trigger finger release Presence of coronary angioplasty implant and graft (~01/30/11) Social History Smoking Status: Never smoker alcohol intake: never substance use type: does not use caffeine: Yes Type: coffee Number of servings: 3 ROS ROS ED ROS Narrative Denies recent illness. Chest pain today. Constitutional Constitutional ED: Denies chills or fever(s) Eyes Eyes: Reports none ENT ENT ED: Denies ear pain Cardiovascular Cardiovascular: Reports as per HPI and chest pain; Denies palpitations or racing heartbeat Respiratory/Chest Respiratory/Chest: Denies cough or dyspnea Gastrointestinal Gastrointestinal: Denies abdominal pain Genitourinary Genitourinary ED: Denies dysuria or hematuria Musculoskeletal Musculoskeletal: Denies arthralgias or back pain Integumentary Denies abscess or Abrasions Neurologic Neurologic: Denies headache(s) Psychiatric Psychiatric: Denies anxiety Endocrine Endocrinology: Denies cold intolerance Hematologic/Lymphatic Hematologic/Lymphatic: Denies easy bleeding, easy bruising or lymphadenopathy Allergic/Immunologic Allergic/Immunologic ED: Denies mouth swelling, tongue swelling or urticaria EXAM Physical Exam Narrative Exam Narrative: 79-year-old female vital signs are stable afebrile. Currently she is pain-free. Initial blood pressure 9758 but she had 2 sublingual nitro prior to arrival. Pulse ox 97% on room air no signs hypoxia. H EENT exam pupils round react to light. Motions intact. Moist mucous membranes. Neck nontender no JVD. Lungs clear to auscultation bilaterally. Heart irregularly irregular rate about 80 no murmur. A-fib on the monitor. Chest wall and ribs nontender no reproducible pain. Normal appearance. Abdomen soft nontender. Moving all 4 extremities. 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 Dorsi plantarflexion intact. Equal symmetrical radial pulses. Calves are nontender without edema or cord. Back nontender. Neurologically she is awake and alert no focal motor deficits. Repeat exam patient is doing well at 3:45 PM. We went over all of her test results. A lengthy discussion both her and her family. Currently her blood pressure is stable at around 115/62. Heart rates in the 80s she remains in A-fib. She is comfortable being discharged home. She has an upcoming appointment see her helper teacher she can try to move that up sooner. She has not been having unstable angina at home. She does not need to take a lot of nitro recently. Her last episode of chest pain was several weeks ago. She knows to return if she is having worsening or more frequent chest pain or if she is feeling worse. Otherwise she will follow-up with her helper teacher. She will continue her current meds which includes Eliquis. Const Vital Signs: 01/07/25 11:58 01/07/25 12:16 01/07/25 13:00 Temperature 97.5 F L Temperature Source Temporal Pulse Rate 82 82 Respiratory Rate 19 H 16 Respiratory Effort Blood Pressure 97/58 L 95/65 Blood Pressure Mean 71 75 Pulse Ox 97 95 Oxygen Delivery Method Room Air Room Air Room Air 01/07/25 13:04 01/07/25 14:00 Temperature Temperature Source Pulse Rate 79 Respiratory Rate 19 H Respiratory Effort Normal Blood Pressure 99/59 L Blood Pressure Mean 72 Pulse Ox 97 Oxygen Delivery Method Room Air Positive well nourished and well developed; Negative for obese, cachectic, contractures or unkempt General Appearance ED: well developed and NAD; Negative for unkempt, cachectic, contractures or pallor Nutritional Appearance: Negative for cachectic or obese HEENT Reports moist mucous membranes normocephalic and atraumatic Eyes PERRL and EOMs intact bilaterally Neck no lymphadenopathy, supple and no JVD Chest Wall inspection of chest normal Chest: Negative for tenderness Resp normal respiratory effort and clear to auscultation bilaterally Auscultation: Negative for rales, rhonchi, wheezes or diminished lung sounds Cardio regular rate, regular rhythm, S1 normal heart sound, S2 normal heart sound and no murmurs Rate: Negative for bradycardia or tachycardic Rhythm: Negative for abnormal rhythm Peripheral Pulses: pulses 2+ throughout GI normal to inspection, nondistended, normoactive bowel sounds, soft to palpation, non-tender, non-distended and no masses Back/Spine no CVA tenderness and no thoracic nor lumbar tenderness Extremity normal to inspection Neuro oriented x3 and CN's II-XII intact bilaterally Sensorium / Orientation: awake, alert, oriented to person, oriented to place and oriented to time; Negative for confused, lethargic or stuporous Motor Exam: strength 5/5 throughout Psych mental status grossly normal Appearance: Negative for unkempt Attitude: No agitated Mood & Affect: Negative for depressed, anxious or tearful Skin no rashes or lesions noted and no wounds General Skin Exam: Negative for jaundice or pallor Rashes: No rashes noted Trauma: Negative for abrasion or laceration Heart Score History: Moderately Suspicious ECG: Normal Age: >/= 65 years Risk Factors: >/= 3 Risk Factors or History of CAD Troponin: </= Normal Limit Score: 5 MDM MDM MDM Narrative Medical decision making narrative: Send 9-year-old female history of A-fib CAD with a stent on Eliis with her to have a chest pain today relieved with nitroglycerin at jehovah's witness. Currently pain-free symptom-free state. Exam benign. She undergo a cardiac workup. Last heart cath was around early 2021 about 3 years ago. History & Record Review Discussion w/independent historian: Patient and Family Additional record(s) reviewed:: Prior inpatient record, Prior outpatient record, Prior ED visit and Prior labs Lab Data Attestation: I reviewed the patient's lab results. Lab results narrative: CBC shows a white count 13.7. H&H 11.4 and 35.8 which is her baseline anemia. Platelets 322. Electrolytes show gap 7. BUN and creatinine are 14 and 1.48. Glucose 148. Initial troponin 30. 2-hour troponin 27. Labs: Laboratory Results - last 24 hr 01/07/25 01/07/25 12:15 14:33 WBC 13.7 H RBC 3.57 L Hgb 11.4 L Hct 35.8 L MCV 100.3 H MCH 31.9 MCHC 31.8 L RDW Std Deviation 57.7 H RDW Coeff of Paty 15.5 H Plt Count 322 MPV 10.8 Immature Gran % (Auto) 1.500 H Neut % (Auto) 68.2 Lymph % (Auto) 16.1 L [place] % (Auto) 12.3 H Eos % (Auto) 1.2 Baso % (Auto) 0.7 Absolute Neuts (auto) 9.3 H Absolute Lymphs (auto) 2.20 Nucleated RBC % 0 Differential Comment SCANNED Diff Path Review May foll Platelet Estimate ADEQUATE RBC Morphology NORM C+C Sodium 138 Potassium 3.8 Chloride 106 Carbon Dioxide 26.0 Anion Gap 7 BUN 14 Creatinine 1.48 H Estim Creat Clear Calc 24.79 Est GFR (MDRD) Af Amer 44 L Est GFR (MDRD) Non-Af 36 L BUN/Creatinine Ratio 9.5 L Glucose 148 H Calcium 9.2 Troponin I High Sens 30 27 Radiography Chest X-Ray - ED: 1 View, Read by ED Physician, Lungs, Mediastinum, Bony Structures, No Acute Disease, Chronic Changes and Cardiomegaly Diagnostic Testing: Clinical Impression(s) from Imaging Studies Chest X-Ray 01/07/25 12:03 IMPRESSION: NEGATIVE SINGLE VIEW OF THE CHEST. Reading Location: [facility] Chest x-ray, portable, single view, interpreted by myself shows cardiomegaly. Otherwise no acute process. Normal lung paredes bilaterally. No CHF. No effusions. Left prosthetic shoulder. Chronic changes. Rhythm Strip Rhythm Strip: A-fib Rate: 83 Ectopy: None EKG Initial EKG: Interpretation: Atrial Fibrillation Comments: A-fib rate of 83. No acute signs of NV or ischemia. Discharge Plan Triage Chief Complaint: Chest Pain ED Provider: Baldemar Mooney Dx/Rx/DC Orders Clinical Impression: Chest pain, History of CAD (coronary artery disease), History of atrial fibrillation, History of diabetes mellitus, Chronic anticoagulation Instructions: ED Chest Pain, Uncertain Cause Prescriptions: No Action glipizide 5 mg tablet 5 mg PO BID aspirin [Adult Low Dose Aspirin] 81 mg tablet,delayed release (DR/EC) 81 mg PO DAILY cholecalciferol (vitamin D3) 50 mcg (2,000 unit) capsule 4,000 unit PO DAILY metformin 500 mg tablet extended release 24 hr 500 mg PO BID omeprazole 20 mg capsule,delayed release(DR/EC) 20 mg PO DAILY furosemide [Lasix] 20 mg tablet 20 mg PO DAILY PRN metoprolol tartrate 25 mg tablet 25 mg PO BID acetaminophen 500 mg tablet 1,000 mg PO ONCE PRN ferrous sulfate 325 mg (65 mg iron) tablet 325 mg PO DAILY folic acid 800 mcg tablet 0.8 mg PO DAILY levothyroxine 75 MCG tablet 75 mcg PO DAILY Patient Comments: thyroid supplement nitroglycerin 0.4 MG tablet 0.4 mg SUBLINGUAL Q5M PRN (Reason: Chest Pain) Patient Comments: chest pain multivitamin with folic acid 1 TABLET tablet 1 tab PO DAILY Patient Comments: supplement albuterol sulfate [Ventolin HFA] 90 mcg/actuation HFA aerosol inhaler 1 - 2 puff inhalation Q4H PRN PRN (Reason: Wheezing) Qty: 1 0RF rosuvastatin 40 mg tablet 40 mg PO QHS Qty: 90 3RF lisinopril 10 mg tablet 10 mg PO DAILY Qty: 90 3RF isosorbide mononitrate 60 mg tablet extended release 24 hr See Rx Instructions .ROUTE .COMPLEX Qty: 90 3RF Dose Instruction: TAKE 1 TABLET BY MOUTH DAILY Rx Instructions: TAKE 1 TABLET BY MOUTH DAILY Eliquis 5 mg tablet 5 mg PO BID Qty: 180 3RF Primary Care Provider: Lo Weir Referrals: Tae Capellan MD [Med Staff - Active Staff] - As soon as possible Lo Weir MD [Primary Care Provider] - As Needed Activity Restrictions/Additional Instructions: Continue your current medications. Call your helper teacher office tomorrow and see if they can move up your appointment to get you in sooner than your January appointment. Tell them you are recently in the ER and just had a chest pain workup. If you are having increasing chest pain or more frequent or more intense or using your nitro more often than just return to the emergency department to be admitted. Print Language: Bhutanese Disposition Disposition: Home, Self Care
[2025-01-07 12:30] LABS: Absolute Neutrophil Count 9.3 X10^3/uL (2.0-7.7); Basophil# 0.09 X10^3/uL; Basophil% 0.7 % (0-1); Eosinophil# 0.16 X10^3/uL; Eosinophils% 1.2 % (0-5); Hematocrit 35.8 % (37-47); Hemoglobin 11.4 g/dL (12.0-15.0); Lymphocyte % 16.1 % (19-41); Mean Corp Hgb Conc 31.8 g/dL (32-36); Mean Corpuscular Hgb 31.9 pg (27.0-32.0); Mean Corpuscular Volume 100.3 fL (81-99); Mean Platelet Vol. 10.8 fl (6.2-12.0); Monocyte# 1.68 X10^3/uL; Monocyte% 12.3 % (0-10); NRBC Flagged by Analyzer 0 % (0-5); Neutrophil # 9.34 X10^3/uL (2.7-7.7); Neutrophil % 68.2 % (47-70); POSITIVE DIFFERENTIAL YES; Platelet Count 322 K/mm3 (150-450); RBC Distribution Width CV 15.5 % (11.6-14.6); RBC Distribution Width SD 57.7 fl (35.1-43.9); Red Blood Count 3.57 M/mm3 (4.2-5.4); White Blood Count 13.7 K/mm3 (4.4-11.0)
[2025-01-07 12:31] LABS: Differential Indicated SCAN CRITERIA MET
[2025-01-07 12:43] LABS: Anion Gap 7 (5-15); BUN 14 mg/dL (7-18); BUN/Creat Ratio 9.5 RATIO (10-20); Calcium,Total 9.2 mg/dL (8.5-10.1); Chloride 106 mmol/L (98-107); Creatinine, Serum 1.48 mg/dL (0.55-1.02); EST Glomerular Filtration Rate 36 mL/min (>60); Est Glom Filt Rate - Afr Amer 44 mL/min (>60); Estimated Creatinine Clearance 24.79 ml/min; Glucose 148 mg/dL (74-106); Potassium 3.8 mmol/L (3.5-5.1); Sodium Level 138 mmol/L (136-145); Troponin-I HS (w/2H Reflex) 30 pg/mL (3.0-54.0)
[2025-01-07 13:00] VITALS: BP 95/65; PULSE 82; RESP 16; O2SAT 95
[2025-01-07 13:11] LABS: Differential Comment SCANNED; Platelet Estimate ADEQUATE (ADEQ); Red Cell Morphology NORM C+C NORMAL (NORM C&C)
[2025-01-07 14:00] VITALS: BP 99/59; PULSE 79; RESP 19; O2SAT 97
[2025-01-07 14:20] LABS: Reflex Troponin-HS? (from REC) Y
[2025-01-07 14:59] LABS: Troponin-I HS 27 pg/mL (3.0-54.0)
[2025-01-07 16:00] VITALS: BP 111/70; PULSE 80; RESP 16; O2SAT 96
[2025-01-08 13:29] LABS: Pathologist Review Reviewed
== END 2025-01-07 16:07 | disposition home or self-care (01) ==
PROVIDERS: Emergency Provider Emergency Medicine; PCP Internal Medicine; Visit Provider Emergency Medicine
DX: R07.9 Chest pain, unspecified (principal); I48.91 Unspecified atrial fibrillation; E11.9 Type 2 diabetes mellitus without complications; R06.02 Shortness of breath; E78.00 Pure hypercholesterolemia, unspecified; I25.10 Atherosclerotic heart disease of native coronary artery without angina pectoris; I10 Essential (primary) hypertension; R11.0 Nausea; Z79.01 Long term (current) use of anticoagulants; Z95.5 Presence of coronary angioplasty implant and graft; E03.9 Hypothyroidism, unspecified; K21.9 Gastro-esophageal reflux disease without esophagitis
CPT/HCPCS: 71045; 80048; 84484; 85025; 93005; 99285; A4216

== ENCOUNTER → 2025-01-24 | Outpatient (CLI) | payer MEDICARE, SELFPAY ==
--- NOTE | 2025-01-25 12:16 | STRESSREP ---
Stress Test Report Date: 01/24/2025 Procedure: Pharmacologic stress nuclear imaging study Indications: Coronary artery disease Consent: Per the patient Procedure: The patient underwent pharmacologic (Regadenoson 0.4mg ) evaluation with a peak heart rate of 116 beats per minute (82%predicted maximal heart rate) and a peak blood pressure of 124/90 mmHg. The baseline ECG demonstrated sinus rhythm with generalized T wave inversions. The peak pharmacologic ECG was nondiagnostic secondary to baseline abnormalities. There were no cardiac dysrhythmias pretest, during pharmacologic infusion, or recovery. There was no complaint of chest discomfort during pharmacologic infusion or recovery. The patient was injected with 10.4 millicuries of technetium 99m Cardiolite and subsequently rest SPECT Cardiolite nuclear imaging was obtained in the horizontal long, vertical long, and short axis views. The patient underwent pharmacologic (Regadenoson) evaluation. The patient was injected with 31.8 millicuries of technetium 99m Cardiolite and subsequently stress SPECT Cardiolite nuclear imaging was obtained in the horizontal long, vertical long, and short axis views. A gated Cardiolite study at peak stress was obtained. The examination was stopped secondary to completion of protocol. Rest and stress SPECT Cardiolite nuclear imaging status post realignment, normalization, and attenuation correction demonstrate no fixed or reversible perfusion defects. There is end systolic thickening and brightening. The gated Cardiolite study demonstrates myocardial thickening and inward wall motion. The reported LVEF is 57%. Impression: 1. Pharmacologic (Regadenoson) evaluation 2. Peak pharmacologic ECG with no diagnostic changes secondary to baseline abnormalities. 3. There were no cardiac dysrhythmias pretest, during pharmacologic infusion, or recovery. 5. Rest and stress SPECT Cardiolite nuclear imaging demonstrate relative uniform tracer uptake and myocardial perfusion appearing within normal limits. 6. The gated Cardiolite study reports an LVEF of 57%. This note was generated with [email or web address] software. It may contain incorrect words, spelling, and punctuation that were not noted in checking the note before signing.
== END | disposition home or self-care (01) ==
LOC: CVS 06:24
PROVIDERS: PCP Internal Medicine; Referring Provider Internal Medicine Cardiovascular Disease; Visit Provider Internal Medicine Cardiovascular Disease
DX: R07.9 Chest pain, unspecified (principal); I48.0 Paroxysmal atrial fibrillation; Z98.890 Other specified postprocedural states
CPT/HCPCS: 78452; 93017; A9500; A4216; J2785

== ENCOUNTER → 2025-09-18 | Outpatient (CLI) | payer MEDICARE, SELFPAY ==
--- NOTE | 2025-09-18 13:01 | ECHOD_ITS ---
Reason For Study Reason For Study: CAD/ASHD Procedure This was a 2D Doppler, Color Flow transthoracic echocardiogram. Exam performed in department. Left Ventricle Normal LV size. Moderate concentric left ventricular hypertrophy. The left ventricular ejection fraction is 50 %. Stage 1 diastolic dysfunction. Right Ventricle Moderately dilated right ventricular cavity. Moderate RV systolic dysfunction. Atria There is severe biatrial dilatation. Mitral Valve Mild (1+) mitral valve insufficiency. Tricuspid Valve Severe (4+) tricuspid valve insufficiency. Right ventricular systolic pressure estimated to be 31 mmHg. Aortic Valve Trisinus/trileaflet aortic valve. Pulmonic Valve Mild (1+) pulmonic valve insufficiency. Great Vessels Mildly dilated aortic root. Pericardium/Pleural Small (<1.0 cm) pericardial effusion. MMode/2D Measurements & Calculations LVIDd: 2.5 cm IVSd: 1.5 cm Ao root diam: 3.9 cm LVIDs: 2.4 cm LVPWd: 1.7 cm RVDd: 4.1 cm FS: 2.7 % LAV(MOD-bp): 47.7 ml LVAd ap4: 17.6 cm2 LVAd ap2: 17.1 cm2 LAV(MOD-bp) Indexed: 32.7 ml/m2 LVLd ap4: 6.3 cm LVLd ap2: 6.1 cm LAV(MOD-sp2): 46.1 ml EDV(MOD-sp4): 41.1 ml EDV(MOD-sp2): 39.7 ml LAV(MOD-sp4): 51.9 ml EDV(sp4-el): 42.2 ml EDV(sp2-el): 40.9 ml LVAs ap4: 11.6 cm2 LVAs ap2: 9.8 cm2 LVLs ap4: 5.9 cm LVLs ap2: 5.4 cm ESV(MOD-sp4): 19.6 ml ESV(MOD-sp2): 14.9 ml ESV(sp4-el): 19.1 ml ESV(sp2-el): 14.8 ml EF(MOD-sp4): 52.2 % EF(MOD-sp2): 62.5 % EF(sp4-el): 54.7 % SV(MOD-sp4): 21.4 ml SV(MOD-sp2): 24.8 ml SV(sp4-el): 23.1 ml SI(MOD-sp4): 14.7 ml/m2 SI(MOD-sp2): 17.0 ml/m2 LA A4 area: 19.0 cm2 LA dimension(2D): 4.4 cm RA A4 area: 20.4 cm2 TAPSE: 0.59 cm Time Measurements MV dec time: 0.14 sec Doppler Measurements & Calculations MV E max pireo: 91.1 cm/sec Lat Peak E' Piero: 6.6 cm/sec Med Peak E' Piero: 4.5 cm/sec E/E' lat: 13.9 E/E' med: 20.0 MV V2 max: 101.6 cm/sec MV P1/2t max piero: 101.4 cm/sec Ao V2 max: 66.6 cm/sec MV max P.1 mmHg MV P1/2t: 55.6 msec Ao max P.8 mmHg MV V2 mean: 47.5 cm/sec Ao V2 mean: 39.8 cm/sec MV mean P.2 mmHg MV dec slope: 533.6 cm/sec2 Ao mean P.79 mmHg MV V2 VTI: 19.6 cm MVA(P1/2t): 4.0 cm2 Ao V2 VTI: 10.9 cm AV (velocity ratio): 0.81 LV V1 max: 48.6 cm/sec PA V2 max: 61.9 cm/sec TR max piero: 196.5 cm/sec LV V1 max P.95 mmHg TR max P.6 mmHg LV V1 mean P.49 mmHg LV V1 mean: 32.2 cm/sec LV V1 VTI: 8.8 cm ECHO/Echo Complete Interpretation Summary Moderate concentric left ventricular hypertrophy. The left ventricular ejection fraction is 50 %. Stage 1 diastolic dysfunction. Moderately dilated right ventricular cavity. Moderate RV systolic dysfunction. There is severe biatrial dilatation. Mild (1+) mitral valve insufficiency. Severe (4+) tricuspid valve insufficiency. Pulmonary artery systolic pressure l ikely underestimated secondary to mild coaptation of tricuspid valve leaflets. Mild (1+) pulmonic valve insufficiency. Mildly dilated aortic root. Small (<1.0 cm) pericardial effusion. Ordering Physician: Tae Capellan Referring Physician: Lo Weir Performed By: Mallorie Dalton RDCS
== END | disposition home or self-care (01) ==
PROVIDERS: PCP Internal Medicine; Referring Provider Internal Medicine Cardiovascular Disease; Visit Provider Internal Medicine Cardiovascular Disease
DX: I07.1 Rheumatic tricuspid insufficiency (principal); I48.11 Longstanding persistent atrial fibrillation; I34.0 Nonrheumatic mitral (valve) insufficiency; I25.10 Atherosclerotic heart disease of native coronary artery without angina pectoris; Z95.5 Presence of coronary angioplasty implant and graft
CPT/HCPCS: 93306

== ENCOUNTER 2025-10-07 15:25 | Emergency (ER) | payer MEDICARE, SELFPAY ==
[2025-10-07 15:26] VITALS: BP 147/120; PULSE 77; RESP 14; TEMP 36.6; O2SAT 93; BMI 23.3
[2025-10-07 15:36] VITALS: BP 119/74; PULSE 91; RESP 24; O2SAT 95
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
--- OUTSIDE RECORDS SUMMARY | 2025-10-07 16:04 | XMS RPT_ITS | CCD ---
Author Organization [facility] Care Team Providers Care Chemical Equipment Controller Name Role Phone Dr. Matthew Spencer Primary Care Provider Dr. Matthew Spencer Referring Provider Dr. Percy Trinh Attending Provider Matthew Spencer MD Primary Care Provider Dr. Percy Trinh Referring Provider Dr. Percy Trinh Other Provider CHAKA Stout Attending Provider Matthew Spencer MD Primary Care Provider Matthew Spencer MD Primary Care Provider Dr. Matthew Spencer Primary Care Provider Dr. Matthew Spencer Referring Provider CHAKA Stout Attending Provider Dr. Matthew Spencer Primary Care Provider Dr. Matthew Spencer Referring Provider Roof LINE DECORATOR, LINE DECORATOR-C Juan Kaur Attending Provider Roof LINE DECORATOR, LINE DECORATOR-Curt Kaur Referring Provider Roof LINE DECORATOR, LINE DECORATOR-Curt Kaur Other Provider Dr. Tae Capellan Attending Provider MATTHEW SPENCER Referring Unavailable MATTHEW SPENCER Primary Care Unavailable PHYSICIAN, NONE Primary Care Physician UnavailMatthew Blanco MD Primary Care Provider YULIA SIMPSON, DR MELQUIADES Rebollar Attending Unavailab murphy PHYSICIAN, NONE Primary Care Unavailable YULIA SIMPSON, DR MELQUIADES Rebollar Attending Unavailab katherine PHYSICIAN, NONE Primary Care Unavailable YULIA SIMPSON, DR MELQUIADES Rebollar Attending Unavailab murphy PHYSICIAN, NONE Primary Care Unavailable YULIA SIMPSON, DR MELQUIADES Rebollar Admitting Unavailab Sims PA, MS ELISHA Chaparro Consulting Unav ailable FISH PROCESS LABORATORY SPECIALIST-INFORMATION CODER, CHICO Consulting Unavailab Angelika SIMPSON, DR CASTRO Consulting Unavailable ANNABELLE SIMPSON, HEAVEN Consulting Unavailable KAPPER PROCESS LABORATORY SPECIALIST-INFORMATION CODER, FIONA Chaparro Consulting Unavaila ble Hernandez PROCESS LABORATORY SPECIALIST.TRIM STENCIL MAKER, Dipika Unavailable Angela PROCESS LABORATORY SPECIALIST.INFORMATION CODER, Henrique Unavailable Angela PROCESS LABORATORY SPECIALIST.INFORMATION CODER, Henrique Unavailable Angela PROCESS LABORATORY SPECIALIST.INFORMATION CODER, Henrique Unavailable Angela PROCESS LABORATORY SPECIALIST.INFORMATION CODER, Henrique Unavailable Tj SIMPSON, Dr. Matthew Alvarez Primary Care Provider Vinicio SIMPSON, Dr. Mcdermott Attending Provider Vinicio SIMPSON, Dr. Mcdermott Emergency Provider Tj SIMPSON, Dr. Matthew Alvarez Referring Provider Timi SIMPSON, Dr. Strong Attending Provider Timi SIMPSON, Dr. Strong Referring Provider Timi SIMPSON, Dr. Strong Other Provider Hernandez PROCESS LABORATORY SPECIALIST.TRIM STENCIL MAKER, Dipika Unavailable Dr. Matthew Spencer MD Primary Care Provider Dr. Matthew Spencer MD Referring Provider Timi SIMPSON, Dr. Strong Attending Provider Matthew Spencer Primary Care Unavailable Tae Capellan Attending Unavailable Tae Capellan Referring Unavailable Tae Capellan Attending Unavailable Matthew Spencer Primary Care Unavailable TimiTae Referring Unavailable Baldemar Mooney Attending Unavailable Talampas, Matthew D Primary Care Unavailable Elisha Stout Attending Unavail able Elisha Stout Referring Unavail able Talampas, Matthew D Primary Care Unavailable Talampas, Matthew D Primary Care Unavailable Timi, Tae Attending Unavailable Talampas, Matthew D Primary Care Unavailable Talampas, Matthew D Referring Unavailable Timi, Tae Attending Unavailable Timi, Tae Attending Unavailable Talampas, Matthew D Referring Unavailable Talampas, Matthew D Primary Care Unavailable Timi, Tae Attending Unavailable Talampas, Matthew D Referring Unavailable Talampas, Matthew D Primary Care Unavailable Talampas, Matthew D Primary Care Unavailable Timi, Tae Attending Unavailable Timi, Tae Referring Unavailable Timi, Tae Consulting Unavailable Talampas, Matthew D Primary Care Unavailable Timi, Tae Attending Unavailable Timi, Tae Attending Unavailable Talampas, Matthew D Primary Care Unavailable Timi, Tae Referring Unavailable HENRIQUE GARCIA Referring Unavailable TALAMPAS, MATTHEW D Primary Care Unavailable HENRIQUE GARCIA Referring Unavailable TALAMPAS, MATTHEW D Primary Care Unavailable TALAMPAS, MATTEHW D Primary Care Unavailable HERNANDEZ, DIPIKA Referring Unavailable TALAMPAS, MATTHEW D Attending Unavailable TALAMPAS, MATTHEW D Primary Care Unavailable TALAMPAS, MATTHEW D Referring Unavailable TALAMPAS, MATTHEW D Primary Care Unavailable TALAMPAS, MATTHEW D Primary Care Unavailable HERNANDEZ, DIPIKA Attending Unavailable TALAMPAS, MATTHEW D Primary Care Unavailable TALAMPAS, MATTHEW D Referring Unavailable TALAMPAS, MATTHEW D Primary Care Unavailable HERNANDEZ, DIPIKA Referring Unavailable MAURILIO GARCIA Attending Unavailable TALAMPAS, MATTHEW D Primary Care Unavailable TALAMPAS, MATTHEW D Primary Care Unavailable TALAMPAS, MATTHEW D Primary Care Unavailable TALAMPAS, MATTHEW D Primary Care Unavailable ROSAURA MONK Referring Unavailable HENRIQUE GARCIA Attending Unavailable TALAMPAS, MATTHEW D Primary Care Unavailable Allergies Allergy Classification Reported Allergen(s) Allergy Type Date of Onset Reaction(s) Facility (20 sources) hydroCHLOROthiazide; Translations: [HYDROCHLOROTHIAZIDE] Drug Allergy 12-10-19 09 Intolerance [facility] Work Phone: (20 sources) LORazepam; Translations: [LORAZEPAM] Drug Allergy 12-07-19 06 Other: See Comments [facility] (20 sources) Sulfonamides (Antibiotic); Translations: [SULFA (SULFONAMIDE ANTIBIOTICS)] Allergy to substance 12-07-19 06 Unknown [facility] (6 sources) anti-inflammatories Allergy to substance 03-02-20 22 Swelling [facility] [place] Work Phone: (20 sources) benzonatate; Translations: [BENZONATATE] Drug Allergy 04-26-20 15 GI Upset [facility] (20 sources) Seasonal allergy; Translations: [SEASONAL ALLERGIES] Propensity to adverse reactions 12-05-19 13 Other: See Comments [facility] (18 sources) narcotics [Other] Propensity to adverse reactions 12-07-19 06 GI Upset [facility] Work Phone: (3 sources) Nonsteroidal Anti-inflammatory Compounds Allergy to substance 03-30-20 23 Swelling [facility] [place] (3 sources) Acetaminophen / oxyCODONE; Translations: [acetaminophen-oxycodo ne] Drug Allergy [facility] (3 sources) Sulfonamide; Translations: [sulfa drugs] Drug allergy unknown [facility] (1 source) hydroCHLOROthiazide Drug Allergy 08-14-20 25 [facility] [place] Repository (1 source) LORazepam Drug Allergy 08-14-20 25 [facility] [place] Repository (1 source) NSAIDs Drug allergy (disorder) 08-14-20 25 [facility] [place] Repository Medications Current Medications Medication Drug Class(es) Dates Sig (Normalized) Sig (Original) acetaminophen 500 mg oral tablet (4 sources) Start: 08-14-2025 take 2 tablets by mouth every eight hours as needed Acetaminophen 500 mg tablet Active 1000 mg PO EVERY 8 HOURS NEEDED August 14, 2025 2:37pm Start: 02-23-2024 End: 08-14-2025 take 2 tablets by mouth once as needed Acetaminophen 500 mg tablet Discontinued 1000 mg PO ONCE as needed February 23, 2024 12:00am August 14, 2025 2:38pm Start: 01-12-2024 take 1 tablet by jamal th once daily Tylenol Dose : 1,000 mg = 2 tab(s), Oral, TID, not to exceed 3000 mg/day, 0 Refill(s) Start Date: 01/12/24 Status: Ordered albuterol MDI (90 mcg/inh) CFC free inhalation aerosol (3 sources) Start: 12-17-2023 take 1 puff(s) by inhalation every four hours as needed for wheezing albuterol MDI (90 mcg/inh) CFC free inhalation aerosol 1 puff(s), Inhalation, q4h, PRN as needed for wheezing, # 18 gram(s), 0 Refill(s) Start Date: 12/17/23 Status: Ordered apixaban 5 mg oral tablet (20 sources) Factor Xa Inhibitor Start: 06-03-2022 End: 03-19-2025 take 1 tablet by mouth twice daily Apixaban (Eliquis) 5 mg tablet Active 5 mg PO TWICE A DAY 180 March 19, 2025 1:19pm Comment on above: Take 5 mg by mouth t wice daily. Take 1 tablet by jamal th twice daily. Blood Pressure Monitor (BLOOD PRESSURE KIT) (20 sources) Start: 12-13-2023 Blood Pressure Monitor (BLOOD PRESSURE KIT) Indications: Acquired hypothyroidism , Coronary artery disease involving [place] heart without angina pectoris, unspecified vessel or lesion type 1 Each once daily as needed. 1 Kit 12/13/2023 Active Start: 12-13-2023 Blood Pressure Monitor (BLOOD PRESSURE KIT) Indications: Acquired hypothyroidism , Coronary artery disease involving [place] heart without angina pectoris, unspecified vessel or lesion type 1 Each once daily as needed. 1 Kit 0 12/13/2023 Active Start: 06-14-2023 End: 12-13-2023 Blood Pressure Monitor (BLOO D PRESSURE KIT) Indications: Acquired hypothyroidism , Coronary artery disease involving [place] heart without angina pectoris, unspecified vessel or lesion type 1 Each once daily as needed. 1 Kit 06/14/2023 12/13/2023 Discontinued Start: 06-14-2023 End: 12-13-2023 Blood Pressure Monitor (BLOO D PRESSURE KIT) Indications: Acquired hypothyroidism , Coronary artery disease involving [place] heart without angina pectoris, unspecified vessel or lesion type 1 Each once daily as needed. 1 Kit 0 06/14/2023 12/13/2023 Discontinued Start: 06-14-2023 Blood Pressure Monitor (BLOOD PRESSURE KIT) Indications: Acquired hypothyroidism , Coronary artery disease involving [place] heart without angina pectoris, unspecified vessel or lesion type 1 Each once daily as needed. 1 Kit 0 06/14/2023 Active Comment on above: 1 Each once daily as needed. cephalexin 500 mg oral capsule (2 sources) Cephalosporin Antibacterial Start: End: take 1 capsule by mouth three times daily cephALEXin (KEFLEX) 500 mg capsule Indications: Cellulitis of perineum Take 1 capsule by mouth three times a day for 5 days. 15 capsule 09/11/2024 09/16/2024 Active cholecalciferol 0.05 mg oral capsule (20 sources) Vitamin D Start: take 1 capsule by mouth once daily Cholecalciferol (Vitamin D3) 50 mcg (2,000 unit) capsule Active 2000 U PO DAILY August 14, 2025 2:35pm Start: 12-22-2023 End: 08-14-2025 take 1 capsule by mouth once daily Cholecalciferol (Vitamin D3) 50 mcg (2,000 unit) capsule Discontinued 4000 U PO DAILY December 22, 2023 11:40am August 14, 2025 2:38pm Start: 11-11-2020 End: 12-22-2023 take 1 capsule by mouth once daily Cholecalciferol (Vitamin D3) 50 mcg (2,000 unit) capsule Discontinued 50 ug PO DAILY November 11, 2020 1:00am December 22, 2023 11:41am Start: 04-11-2015 End: 06-20-2026 take 1 tablet by mouth once daily cholecalciferol (VITAMIN D3) 50 mcg (2,000 unit) tablet Indications: Vitamin D deficiency Take 1 tablet by mouth once daily. 90 tablet 3 06/20/2025 06/20/2026 Active Start: 04-11-2015 End: 07-26-2019 take 1 tablet by mouth once daily Cholecalciferol (Vitamin D3) 1,000 UNIT tablet Discontinued 1000 U PO DAILY April 11, 2015 12:00am July 26, 2019 2:36pm Comment on above: Take 1 tablet by jamal once daily. clindamycin 300 mg oral capsule (2 sources) Lincosamide Antibacterial Start: End: take 1 capsule by mouth twice daily clindamycin (CLEOCIN) 300 mg capsule Take 1 capsule by mouth two times a day for 7 days. 14 capsule 10/09/2024 10/16/2024 Active dapagliflozin 5 mg oral tablet (7 sources) Sodium-Glucose Cotransporter 2 Inhibitor Start: End: take 1 tablet by mouth once daily at breakfast dapagliflozin propanediol (FARXIGA) 5 mg tablet Take 1 tablet by mouth daily with breakfast. 06/20/2025 Active Start: 02-15-2025 End: 03-14-2025 take 1 tablet by mouth once daily in the morning Dapagliflozin Propanediol (Farxiga) 10 mg tablet Active 10 mg PO EVERY MORNING 90 March 14, 2025 5:14pm doxycycline hyclate 100 mg oral tablet (8 sources) Tetracycline-class Drug Start: 02-04-2025 End: 02-11-2025 take 1 tablet by mouth twice daily doxycycline (VIBRA-TABS) 100 mg tablet Indications: Rhinosinusitis Take 1 tablet by mouth two times a day for 7 days. 14 tablet 02/04/2025 02/11/2025 Active Start: 11-18-2024 End: 11-25-2024 take 1 tablet by mouth twice daily doxycycline (VIBRA-TABS) 100 mg tablet Take 1 tablet by mouth two times a day for 7 days. 14 tablet 11/18/2024 11/25/2024 Active Start: 07-21-2023 End: 07-28-2023 take 1 tablet by mouth twice daily doxycycline (VIBRA-TABS) 100 mg tablet Take 1 tablet by mouth twice daily for 7 days. 14 tablet 0 07/21/2023 07/28/2023 Active Comment on above: Take 1 tablet by jamal twice daily for 7 days. 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 1 Each 0 09/29/2023 2023 Active Comment on above: Use to check blood s ugar at least four (4) times daily. folic acid 0.8 mg oral tablet (20 sources) Start: 02-23-2024 take 0.8 mg by mouth once daily Folic Acid 800 mcg tablet Active 0.8 mg PO DAILY February 23, 2024 12:00am FOLIC ACID ORAL Take by mouth. Active furosemide 20 mg oral tablet (20 sources) Loop Diuretic Start: 08-14-2025 take 1 tablet by mouth every other day Furosemide (Lasix) 20 mg tablet Active 20 mg PO every other day 30 August 14, 2025 12:00am Start: 01-19-2024 End: 02-15-2025 take 1 tablet by mouth once daily Furosemide (Lasix) 20 mg tablet Discontinued 20 mg PO DAILY 90 January 10, 2025 5:20pm February 15, 2025 2:04pm Start: 11-24-2023 End: 12-16-2023 take 0.5-1 tablets by mouth once daily as needed furosemide 20 mg oral tablet Take 0.5-1 tablets by mouth once daily as needed (swelling in legs). as directed Start Date: 12/17/23 Status: Ordered Start: 06-03-2022 End: 07-06-2022 take 1 tablet by mouth once daily as needed Furosemide (Lasix) 20 mg tablet Discontinued 20 mg PO DAILY as needed June 03, 2022 12:00am July 06, 2022 9:38am Start: 04-11-2015 End: 07-26-2019 take 10 mg by mouth once daily as needed Furosemide 20 MG tablet Discontinued 10 mg PO DAILY as needed for Swelling April 11, 2015 12:00am July 26, 2019 2:35pm Start: 04-11-2015 End: 07-26-2019 take 10 mg by mouth once daily Furosemide Discontinued 10 MG PO DAILY April 11, 2015 12:00am July 26, 2019 2:35pm Comment on above: Take 0.5-1 tablets b y mouth once daily as needed (swelling in legs). as directed glipiZIDE 5 mg oral tablet (20 sources) Sulfonylurea Start: End: take 1 tablet by mouth twice daily Glipizide 5 mg tablet Active 5 mg PO TWICE A DAY July 27, 2019 12:00am Comment on above: Take 1 tablet by jamal th twice daily before meals. Take 1 tablet (5 mg) by mouth two times a day before meals. 24 hr isosorbide mononitrate 30 mg extended release oral tablet (20 sources) Nitrate Vasodilator Start: take 1 tablet by mouth once daily in the morning, then take 1 tablet by mouth every twenty-four hours Isosorbide Mononitrate 30 mg tablet extended release 24 hr Active 30 mg PO EVERY MORNING 30 August 14, 2025 12:00am Start: 03-24-2022 End: 08-14-2025 take 1 tablet by mouth once daily Isosorbide Mononitrate 60 mg tablet extended release 24 hr Discontinued 0 .ROUTE .COMPLEX 90 November 13, 2024 11:41am August 14, 2025 3:00pm TAKE 1 TABLET BY MOUTH DAILY Start: 03-02-2022 End: 03-24-2022 take 1 tablet by mouth once daily, then take 1 tablet by mouth every twenty-four hours Isosorbide Mononitrate 30 mg tablet extended release 24 hr Discontinued 30 mg PO DAILY 30 March 02, 2022 12:00am March 24, 2022 12:05pm Comment on above: Take 60 mg by mouth once daily. Take 1 tablet by jamal once daily. Lactobacillus Combination No.9 (Adult 50+ Probiotic) 4 billion cell capsule (9 sources) Start: take 4 capsules by mouth once daily Lactobacillus Combination No.9 (Adult 50+ Probiotic) 4 billion cell capsule Active 4000 MMU CELLS PO DAILY July 27, 2019 1:21pm Start: 07-27-2019 End: 12-22-2023 take 4 capsules by mouth once daily Lactobacillus Combination No.9 (Adult 50+ Probiotic) 4 billion cell capsule Discontinued 4000 NMA PO DAILY July 27, 2019 12:00am December 22, 2023 11:41am Start: 07-27-2019 take 4 capsules by m outh once daily Lactobacillus Combination No.9 (Adult 50+ Probiotic) 4 billion cell capsule Active 4000 MMU CELLS PO DAILY July 26, 2019 11:00pm Start: 07-27-2019 take 4 capsules by m outh once daily Lactobacillus Combination No.9 (Adult 50+ Probiotic) 4 billion cell capsule Active 4000 MMU CELLS PO DAILY July 27, 2019 12:00am levothyroxine sodium 0.075 mg oral tablet (20 sources) l-Thyroxine Start: 12-17-2023 levothyroxine 75 mcg (0.075 mg) oral tablet Dose : 75 mcg = 1 tab(s), Oral, qDay, # 30 tab(s), 0 Refill(s) Start Date: 12/17/23 Status: Ordered Start: 04-11-2015 End: 12-20-2024 take 1 tablet by mouth once daily Levothyroxine 75 MCG tablet Active 75 ug PO DAILY April 11, 2015 12:00am Comment on above: Take 1 tablet by jamal th once daily. lisinopril 10 mg oral tablet (20 sources) Angiotensin Converting Enzyme Inhibitor Start: 08-14-2025 take 1 tablet by mouth once daily Lisinopril 10 mg tablet Active 10 mg PO daily August 14, 2025 12:00am Start: 11-11-2020 End: 06-20-2025 take 1 tablet by mouth once daily Lisinopril 10 mg tablet Discontinued 10 mg PO DAILY November 10, 2024 11:56am January 09, 2025 4:44pm Start: 07-26-2019 End: 11-11-2020 take 5 mg by mouth once daily Lisinopril 10 mg tablet Discontinued 5 mg PO DAILY July 26, 2019 2:33pm November 11, 2020 11:26am Start: 07-26-2019 End: 11-11-2020 take 5 mg by mouth once daily Lisinopril Discontinued 5 MG PO DAILY July 26, 2019 2:33pm November 11, 2020 11:26am Start: 04-11-2015 End: 07-26-2019 take 1 tablet by mouth once daily Lisinopril 10 MG tablet Discontinued 10 mg PO DAILY April 11, 2015 12:00am July 26, 2019 2:36pm Comment on above: Take 1 tablet by jamal th once daily. Lopressor 25mg--USE metoprolol tartrate 25 mg oral tablet (3 sources) Start: 12-17-2023 Lopressor 25mg--USE metoprolol tartrate 25 mg oral tablet Dose : 25 mg = 1 tab(s), Oral, qDay, 0 Refill(s) Start Date: 12/17/23 Status: Ordered Magnesium (9 sources) Start: 03-02-2022 take 250 mg by mouth once daily Magnesium Active 250 MG PO DAILY March 02, 2022 11:00am Start: 03-02-2022 End: 07-06-2022 take 1 tablet by mouth once daily Magnesium 250 mg tablet Discontinued 250 mg PO DAILY March 02, 2022 12:00am July 06, 2022 9:41am Start: 03-02-2022 End: 07-06-2022 take 250 mg by mouth once daily Magnesium Discontinued 250 MG PO DAILY March 02, 2022 12:00am July 06, 2022 9:41am Start: 03-02-2022 End: 07-06-2022 take 250 mg by mouth once daily Magnesium Discontinued 250 MG PO DAILY March 01, 2022 11:00pm July 06, 2022 8:41am Start: 03-02-2022 take 250 mg by mouth once nevaeh y Magnesium Active 250 MG PO DAILY March 02, 2022 12:00am 24 hr metFORMIN hydrochloride 500 mg extended release oral tablet (20 sources) Biguanide Start: 12-17-2023 MetFORMIN (Eqv -Glucophage XR) 500 mg oral tablet, EXTENDED RELEASE Dose : 500 mg = 1 tab(s), Oral, Daily, 0 Refill(s) Start Date: 12/17/23 Status: Ordered Start: 12-13-2023 take 1 tablet by jamal th twice daily Metformin 500 mg tablet extended release 24 hr Active 500 mg PO TWICE A DAY February 23, 2024 1:57pm Start: 10-12-2022 End: 02-23-2024 Metformin 500 mg tablet exte nded release 24 hr Discontinued 1000 mg PO TWICE A DAY October 12, 2022 12:35pm February 23, 2024 2:02pm Start: 12-10-2021 End: 10-12-2022 take 1 tablet by mouth twice daily Metformin 500 mg tablet extended release 24 hr Discontinued 500 mg PO TWICE A DAY March 02, 2022 11:00am October 12, 2022 12:36pm Start: 12-10-2021 End: 12-13-2023 take 1 tablet by mouth twice daily at mealtime metFORMIN ER (GLUCOPHAGE XR) 500 mg 24 hr tablet Indications: Type 2 diabetes mellitus with stage 3a chronic kidney disease, without long-term current use of insulin ([facility]) Take 1 tablet by mouth two times a day with meals. As directed 180 Each 3 12/13/2023 Active Start: 05-08-2021 End: 03-02-2022 Metformin 500 mg tablet exte nded release 24 hr Discontinued 750 mg PO TWICE A DAY May 08, 2021 12:00am March 02, 2022 11:01am Start: 05-08-2021 End: 03-02-2022 take 750 mg by mouth twice daily Metformin Discontinue d 750 MG PO TWICE A DAY May 08, 2021 12:00am March 02, 2022 11:01am Start: 07-26-2019 End: 05-08-2021 take 2 tablets by mouth twice daily Metformin 500 mg tablet Discontinued 1000 mg PO TWICE A DAY July 26, 2019 12:00am May 08, 2021 9:01am Start: 07-26-2019 End: 05-08-2021 take 1000 mg by mouth twice daily Metformin Discontinued 1000 MG PO TWICE A DAY July 26, 2019 12:00am May 08, 2021 9:01am Comment on above: Take 1 tablet by jamal th twice daily with meals. As directed Take 1 tablet by jamal th two times a day with meals. As directed Multivitamin With Folic Acid (7 sources) Start: take 1 tablet by mouth once daily Multivitamin With Folic Acid Active 1 TABLET PO DAILY April 11, 2015 1:11am Start: 04-11-2015 take 1 tablet by jamal th once daily Multivitamin With Folic Acid Active 1 TABLET PO DAILY April 10, 2015 11:00pm Start: 04-11-2015 take 1 tablet by jamal th once daily Multivitamin With Folic Acid Active 1 TABLET PO DAILY April 11, 2015 12:00am Multivitamin With Folic Acid 1 TABLET tablet (2 sources) Start: 04-11-2015 take 1 tablet by mouth once daily Multivitamin With Folic Acid 1 TABLET tablet Active 1 {tbl} PO DAILY April 11, 2015 12:00am nitroglycerin 0.4 mg sublingual tablet (20 sources) Nitrate Vasodilator Start: 12-17-2023 nitroglycerin 0.4 mg sublingual tablet 0.4 mg Dose = 1 tab(s), Sublingual, q5min, PRN as needed for chest pain, # 100 tab(s), 0 Refill(s) Start Date: 12/17/23 Status: Ordered Start: 04-11-2015 End: 12-18-2024 Nitroglycerin 0.4 MG tablet Active 0.4 mg SL Q5M as needed for Chest Pain April 11, 2015 12:00am Comment on above: Dissolve 1 tablet un quirino the tongue every 5 minutes as needed. As directed for chest pain. IF NO RELIEF CALL 911 omeprazole 20 mg delayed release oral capsule (20 sources) Proton Pump Inhibitor Start: 05-11-20 End: 03-08-20 take 1 capsule by mouth once daily Omeprazole 20 mg capsule,delayed release(DR/EC) Active 20 mg PO DAILY August 20, 2023 12:00am Comment on above: Take [address] [facility] daily before breakfast. 1/2 hr before meal. ondansetron 4 mg oral tablet (1 source) Serotonin-3 Receptor Antagonist Start: 01-12-20 End: 01-26-20 ondansetron 4 mg oral tablet Dose : 4 mg = 1 tab(s), Oral, q8h, PRN Nausea/Vomiting, # 30 tab(s), 0 Refill(s), 01/26/24 7:44:00 AM EST, Pharmacy: [id number], 152.4, cm, 01/11/24 12:20:00 EST, Height, kg, 01/11/24 12:20:00 EST, Dosing Weight Start Date: 01/12/24 Stop Date: 01/26/24 Status: Ordered microencapsulated potassium chloride 10 meq extended release oral tablet (3 sources) Start: 08-14-20 take 1 tablet by mouth every other day Potassium Chloride 10 mEq tablet,ER particles/crystals Active 10 meq PO .every other day 30 August 14, 2025 12:00am Start: 01-09-2025 End: 02-15-2025 take 1 tablet by mouth once daily Potassium Chloride 10 mEq tablet extended release Discontinued 10 meq PO daily 90 January 09, 2025 1:00am February 15, 2025 2:05pm rosuvastatin calcium 40 mg oral tablet (20 sources) HMG-CoA Reductase Inhibitor Start: 04-11-2015 End: 11-10-2024 take 1 tablet by mouth at bedtime Rosuvastatin 40 mg tablet Active 40 mg PO AT BEDTIME 90 3 November 10, 2024 11:56am Comment on above: Take 1 tablet by jamal th daily at bedtime. THERAPEUTIC MULTIVITAMIN TAB (20 sources) Start: 05-14-2008 THERAPEUTIC MULTIVITAMIN TAB Take by mouth once daily. 0 05/14/2008 Active Start: 05-14-2008 THERAPEUTIC MU LTIVITAMIN TAB Take one(1) tablet daily. 0 05/14/2008 Active Comment on above: Take one(1) tablet d aily. Take by mouth once d aily. traMADol hydrochloride 50 mg oral tablet (11 sources) Opioid Agonist Start: 05-25-2025 End: 06-01-2025 take 1 tablet by mouth twice daily as needed for pain traMADol (ULTRAM) 50 mg tablet Indications: Fall, initial encounter , Rib pain on left side , Left flank pain Take 1 tablet by mouth two times a day as needed for pain for up to 7 days. 14 tablet 05/25/2025 06/01/2025 Active Start: 05-08-2021 End: 03-02-2022 take 1 tablet by mouth once as needed Tramadol 50 mg tablet Discontinued 50 mg PO ONCE as needed May 08, 2021 12:00am March 02, 2022 11:01am Vitamin D3 50 mcg (2000 intl units) oral capsule (3 sources) Start: 12-17-2023 Vitamin D3 50 mcg (2000 intl units) oral capsule Dose : 50 mcg = 1 cap(s), Oral, qDay, # 60 cap(s), 0 Refill(s) Start Date: 12/17/23 Status: Ordered Completed/Discontinued Medications Medication Drug Class(es) Dates Sig (Normalized) Sig (Original) acetaminophen 500 mg / diphenhydrAMINE hydrochloride 25 mg oral tablet (20 sources) Histamine-1 Receptor Antagonist Start: 11-11-2020 End: 03-02-2022 Diphenhydramine-Ac etaminophen (Tylenol Pm Extra Strength) 25-500 mg tablet Discontinued 1 {tbl} PO AT BEDTIME as needed November 11, 2020 1:00am March 02, 2022 11:01am ACETAMINOPHEN/DI PHENHYDRAMINE (TYLENOL PM EXTRA STRENGTH ORAL) Take by mouth every 8 hours as needed. Active ACETAMINOPHEN/DI PHENHYDRAMINE (TYLENOL PM EXTRA STRENGTH ORAL) Take by mouth every 8 hours as needed. 0 Active ACETAMINOPHEN/DI PHENHYDRAMINE (TYLENOL PM EXTRA STRENGTH ORAL) Take by mouth. 0 Active Comment on above: Take by mouth. Take by mouth every 8 hours as needed. acetaminophen 325 mg / oxyCODONE hydrochloride 5 mg oral tablet (9 sources) Opioid Agonist Start: 07-23-2015 End: 07-26-2019 Oxycodone-Acetaminophen 1 TABLET tablet Discontinued 1 {tbl} PO EVERY 6 HOURS NEEDED as needed for Pain July 23, 2015 1:39am July 26, 2019 2:36pm Start: 07-23-2015 End: 07-26-2019 take 1 tablet by mouth every six hours as needed Oxycodone-Acetaminophen Discontinued 1 TABLET PO EVERY 6 HOURS NEEDED July 23, 2015 1:39am July 26, 2019 2:36pm [id number] actuat albuterol 0.09 mg/actuat metered dose inhaler (11 sources) beta2-Adrenergic Agonist Start: 02-12-2023 End: 09-22-2023 take 2 puff(s) by inhalation every six hours as needed for wheezing albuterol HFA (PROVENTIL HFA, VENTOLIN HFA) 90 mcg/actuation inhaler Indications: Sinobronchitis Inhale 2 Puffs as instructed every 6 hours as needed for wheezing/shortness of breath. 1 Each 02/12/2023 09/22/2023 Discontinued Start: 11-16-2022 End: 08-14-2025 Albuterol Sulfate (Ventolin Hfa) 90 mcg/actuation HFA aerosol inhaler Discontinued 1 - 2 NMA INHALATION EVERY 4 HOURS NEEDED as needed for Wheezing 1 November 16, 2022 1:00am August 14, 2025 2:38pm Start: 11-16-2022 take 1 puff(s) by in halation every four hours as needed Albuterol Sulfate (Ventolin Hfa) 90 mcg/actuation HFA aerosol inhaler Active 1 - 2 PUFF INHALATION EVERY 4 HOURS NEEDED November 16, 2022 1:00am Comment on above: Inhale 2 Puffs as in structed every 6 hours as needed for wheezing/shortness of breath. amoxicillin 500 mg oral capsule (20 sources) Penicillin-class Antibacterial Start: 023 End: 04-10-2 025 take 4 capsules by mouth every hour Amoxicillin 500 mg capsule Discontinued 2000 mg PO .COMPLEX 4 3 December 04, 2022 1:00am August 23, 2024 9:13am 2,000 mg orally 1 hour prior to dental appointment for modertate mitral valve insufficiency.; Start: 12-04-2022 take 2000 mg by mout h every hour Amoxicillin Active 2000 MG PO .COMPLEX 4 December 04, 2022 1:00am 2,000 mg orally 1 hour prior to dental appointment for modertate mitral valve insufficiency.; Comment on above: Take by mouth. Take four tablets by mouth one hour prior to dental procedure aspirin 81 mg delayed release oral tablet (20 sources) Platelet Aggregation Inhibitor, Nonsteroidal Anti-inflammatory Drug Start: 08-25-2011 End: 02-15-2025 Aspirin (Adult Low Dose Aspirin) 81 mg tablet,delayed release (DR/EC) Discontinued 81 mg PO DAILY July 26, 2019 12:00am February 15, 2025 2:04pm Comment on above: Take 1 tablet by jamal th once daily. Bacillus coagulans (PROBIOTIC, B. COAGULANS,) 10 billion cell cpDR (6 sources) Bacillus coagula ns (PROBIOTIC, B. COAGULANS,) 10 billion cell cpDR Take by mouth once daily. 0 Active Comment on above: Take by mouth once d aily. Bacillus coagulans 10 billion cell cpDR (14 sources) End: 11-08-2023 Bacillus coagulans 10 billion cell cpDR Take by mouth once daily. 11/08/2023 Discontinued End: 11-08-2023 Bacillus coagulans 10 billio n cell cpDR Take by mouth once daily. 0 11/08/2023 Discontinued Bacillus coagula ns 10 billion cell cpDR Take by mouth once daily. 0 Active Comment on above: Take by mouth once d aily. biotin 1 mg chewable tablet (9 sources) Start: 03-02-20 End: 06-03-20 take 1 tablet by mouth once daily Biotin 1,000 mcg tablet,chewable Discontinued 1000 ug PO DAILY March 02, 2022 12:00am June 03, 2022 11:34am clobetasol propionate 0.5 mg/ml topical cream (14 sources) Corticosteroid Start: 10-26-20 End: 11-08-20 clobetasol (TEMOVATE) 0.05 % cream Apply to affected area 2x/day for 2 weeks, then 1x/day for a week, than 1-3x/week for maintenance. 60 g 10/26/2022 11/08/2023 Discontinued Comment on above: Apply to affected ar ea 2x/day for 2 weeks, then 1x/day for a week, than 1-3x/week for maintenance. clopidogrel 75 mg oral tablet (9 sources) [id number] Platelet Inhibitor Start: 04-11-20 End: 07-26-20 take 1 tablet by mouth once daily Clopidogrel 75 MG tablet Discontinued 75 mg PO DAILY April 11, 2015 12:00am July 26, 2019 2:36pm diazePAM 5 mg oral tablet (9 sources) Benzodiazepine Start: 07-23-20 End: 07-26-20 take 1 tablet by mouth every eight hours as needed for muscle spasms Diazepam 5 MG tablet Discontinued 5 mg PO EVERY 8 HOURS as needed for Muscle Spasm July 23, 2015 12:00am July 26, 2019 2:35pm digoxin 0.125 mg oral tablet (5 sources) Cardiac Glycoside Start: 02-16-20 End: 08-14-20 take 1 tablet by mouth once daily Digoxin 125 mcg (0.125 mg) tablet Discontinued 125 ug PO daily 90 February 15, 2025 12:00am August 14, 2025 2:38pm Start: 01-19-2024 End: 01-19-2024 take 1 tablet by mouth once daily Digoxin 125 mcg (0.125 mg) tablet Discontinued 125 ug PO DAILY January 19, 2024 1:00am January 19, 2024 10:55am Start: 01-14-2024 End: 02-13-2024 digoxin 125 mcg (0.125 mg) o ral tablet Dose : 62.5 mcg = 0.5 tab(s), Oral, q48h, STOP PREVIOUS DIG ORDER for 0.125mg, # 7.5 tab(s), 0 Refill(s), Pharmacy: [id number], 152.4, cm, 01/11/24 12:20:00 EST, Height, kg, 01/11/24 12:20:00 EST, Dosing Weight Start Date: 01/14/24 Stop Date: 02/13/24 Status: Ordered Start: 01-14-2024 End: 01-14-2024 digoxin Start: 01/14/24 9:00: 00 AM EST, Dose = 0.125 mg, = 1 tab(s), Oral, 0, 01/14/24 14:00:00 EST Start Date: 01/14/24 Stop Date: 01/14/24 Status: Completed docusate sodium 100 mg oral capsule (5 sources) Start: 02-23-2024 End: 08-23-2024 take 1 capsule by mouth once daily Docusate Sodium (Colace) 100 mg capsule Discontinued 100 mg PO DAILY February 23, 2024 2:01pm August 23, 2024 9:14am Start: 01-19-2024 End: 02-23-2024 take 1 capsule by mouth twice daily Docusate Sodium (Colace) 100 mg capsule Discontinued 100 mg PO TWICE A DAY January 19, 2024 1:00am February 23, 2024 2:02pm Start: 01-12-2024 Colace 100 mg oral capsule Dose : 100 mg = 1 cap(s), Oral, BID, 0 Refill(s) Start Date: 01/12/24 Status: Ordered escitalopram 5 mg oral tablet (12 sources) Serotonin Reuptake Inhibitor Start: 11-10-2022 End: 11-08-2023 take 1 tablet by mouth once daily for depression escitalopram oxalate (LEXAPRO) 5 mg tablet Indications: Depression, unspecified depression type Take 1 tablet by mouth once daily. For depression 90 tablet 3 11/10/2022 11/08/2023 Discontinued Comment on above: Take 1 tablet by jamal th once daily. For depression famotidine 20 mg oral tablet (20 sources) Histamine-2 Receptor Antagonist Start: 03-11-2021 End: 08-20-2023 take 1 tablet by mouth twice daily Famotidine 20 mg tablet Discontinued 20 mg PO TWICE A DAY July 06, 2022 12:00am August 20, 2023 2:03pm Start: 11-11-2020 End: 07-06-2022 Famotidine (Pepcid) 40 mg ta blet Discontinued 20 mg PO TWICE A DAY November 11, 2020 11:24am July 06, 2022 9:37am Start: 01-29-2020 End: 11-11-2020 take 1 tablet by mouth twice daily Famotidine (Pepcid) 40 mg tablet Discontinued 40 mg PO TWICE A DAY January 29, 2020 11:26am November 11, 2020 11:26am Start: 01-29-2020 End: 01-29-2020 take 1 tablet by mouth once daily Famotidine (Pepcid) 40 mg tablet Discontinued 40 mg PO DAILY January 29, 2020 1:00am January 29, 2020 11:26am Comment on above: Take 1 tablet by jamal th twice daily. flash glucose sensor (FREESTYLE DC 2 SENSOR) kit (1 source) Start: flash glucose sensor (FREESTYLE DC 2 SENSOR) kit Indications: Type 2 diabetes mellitus with stage 3a chronic kidney disease, without long-term current use of insulin (HCC) Apply new sensor every fourteen (14) days to upper arm. 6 Each 4 09/29/2023 Active Comment on above: Apply new sensor disha ry fourteen (14) days to upper arm. fluticasone propionate 0.05 mg/actuat metered dose nasal spray (7 sources) Corticosteroid Start: End: take 1-2 spray(s) by mouth once daily for congestion fluticasone (FLONASE) 50 mcg/actuation nasal spray Indications: Sinobronchitis Use 1-2 Sprays in each nostril once daily. Rinse mouth after use. For nasal congestion and drainage 1 Each 02/12/2023 09/22/2023 Discontinued Comment on above: Use 1-2 Sprays in ea ch nostril once daily. Rinse mouth after use. For nasal congestion and drainage ketoconazole 20 mg/ml topical cream (7 sources) Azole Antifungal Start: 021 End: ketoconazole (NIZORAL) 2 % cream Apply 1 application to affected area once daily. 30 g 0 03/11/2021 10/26/2022 Discontinued Comment on above: Apply 1 application to affected area once daily. metoprolol tartrate 100 mg oral tablet (20 sources) beta-Adrenergic Rafael Start: 025 End: take 1 tablet by mouth twice daily Metoprolol Tartrate 100 mg tablet Discontinued 100 mg PO TWICE A DAY 180 3 January 10, 2025 1:00am February 15, 2025 3:12pm Start: 02-23-2024 End: 01-09-2025 take 1 tablet by mouth twice daily Metoprolol Tartrate 25 mg tablet Discontinued 25 mg PO TWICE A DAY February 23, 2024 12:00am January 09, 2025 4:44pm Start: 01-19-2024 End: 06-20-2025 take 1 tablet by mouth twice daily Metoprolol Tartrate 50 mg tablet Active 50 mg PO TWICE A DAY 180 3 February 15, 2025 12:00am Start: 01-19-2024 End: 01-19-2024 take 1 tablet by mouth twice daily Metoprolol Tartrate 25 mg tablet Discontinued 25 mg PO TWICE A DAY January 19, 2024 10:35am January 19, 2024 10:56am Start: 01-14-2024 End: 01-14-2024 take 1 tablet by mouth in the morning Metoprolol Tartrate 25 mg oral tablet Start: 01/14/24 9:00:00 AM EST, Dose = 25 mg, = 1 tab(s), Oral, Hold if SBP (mmHg) Start Date: 01/14/24 Stop Date: 01/14/24 Status: Completed Start: 07-14-2022 End: 01-19-2024 take 2 tablets by mouth twice daily Metoprolol Tartrate 25 mg tablet Discontinued 50 mg PO TWICE A DAY 120 6 July 14, 2022 8:56am January 19, 2024 10:35am Start: 07-14-2022 take 50 mg by mouth twice nevaeh y Metoprolol Tartrate Active 50 MG PO TWICE A DAY 120 July 14, 2022 8:56am Start: 07-26-2019 End: 01-26-2024 take 1 tablet by mouth twice daily Metoprolol Tartrate 25 mg tablet Discontinued 25 mg PO TWICE A DAY July 26, 2019 2:33pm July 14, 2022 8:59am Start: 04-11-2015 End: 07-26-2019 Metoprolol Tartrate 25 MG ta blet Discontinued 12.5 mg PO TWICE A DAY April 11, 2015 12:00am July 26, 2019 2:36pm Start: 04-11-2015 End: 07-26-2019 take 12.5 mg by mouth twice daily Metoprolol Tartrate Discontinued 12.5 MG PO TWICE A DAY April 11, 2015 12:00am July 26, 2019 2:36pm Comment on above: Take 1 tablet by jamal th twice daily. Take 50 mg by mouth. naproxen sodium 220 mg oral tablet (20 sources) Nonsteroidal Anti-inflammatory Drug Start: 0 End: 2 take 1 tablet by mouth twice daily as needed Naproxen Sodium 220 mg tablet Discontinued 220 mg PO TWICE A DAY as needed November 11, 2020 1:00am March 02, 2022 11:01am Start: 08-28-2008 End: 01-29-2020 take 1 tablet by mouth every eight hours as needed for pain Naproxen Sodium 220 MG tablet Discontinued 220 mg PO EVERY 8 HOURS NEEDED as needed for Pain April 11, 2015 12:00am January 29, 2020 11:11am Comment on above: Take one(1) tablet e very 8-12 hours as needed Chrisman-3 Fatty Acids-Fish Oil (7 sources) Start: 04-11-2015 End: 07-26-2019 take 1 tablet by mouth once daily Chrisman-3 Fatty Acids-Fish Oil Discontinued 1 TABLET PO DAILY April 11, 2015 1:11am July 26, 2019 2:36pm Start: 04-11-2015 End: 07-26-2019 take 1 tablet by mouth once daily Chrisman-3 Fatty Acids-Fish Oil Discontinued 1 TABLET PO DAILY April 10, 2015 11:00pm July 26, 2019 1:36pm Start: 04-11-2015 End: 07-26-2019 take 1 tablet by mouth once daily Chrisman-3 Fatty Acids-Fish Oil Discontinued 1 TABLET PO DAILY April 11, 2015 12:00am July 26, 2019 2:36pm Chrisman-3 Fatty Acids-Fish Oil 1 EACH capsule (2 sources) Start: 04-11-2015 End: 07-26-2019 Chrisman-3 Fatty Acids-Fish Oil 1 EACH capsule Discontinued 1 {tbl} PO DAILY April 11, 2015 12:00am July 26, 2019 2:36pm oxyCODONE hydrochloride 5 mg oral tablet (7 sources) Opioid Agonist Start: 01-19-2024 End: 02-23-2024 take 1 tablet by mouth twice daily as needed Oxycodone 5 mg tablet Discontinued 5 mg PO TWICE A DAY as needed 0 January 19, 2024 1:00am February 23, 2024 2:02pm Start: 01-12-2024 End: 06-14-2024 take 1 mg by mouth every twenty-four hours as needed oxyCODONE IR (ROXICODONE) 5 mg immediate release tablet Take 1 mg by mouth at bedtime as needed. Also takes 1 before PT 01/12/2024 06/14/2024 Discontinued (Course of therapy completed) Comment on above: Take 1 mg by mouth a t bedtime as needed. Also takes 1 before PT raNITIdine 150 mg oral tablet (9 sources) Histamine-2 Receptor Antagonist Start: 5 End: 0 take 1 tablet by mouth twice daily Ranitidine Hcl 150 MG tablet Discontinued 150 mg PO TWICE A DAY April 11, 2015 12:00am January 29, 2020 11:25am Vitamin D (7 sources) Start: 0 End: 0 take 1 tablet by mouth once daily Vitamin D Discontinued 1 TABLET PO DAILY May 10, 2020 6:09pm November 11, 2020 11:26am Start: 05-10-2020 End: 11-11-2020 take 1 tablet by mouth once daily Vitamin D Discontinued 1 TABLET PO DAILY May 09, 2020 11:00pm November 11, 2020 10:26am Start: 05-10-2020 End: 11-11-2020 take 1 tablet by mouth once daily Vitamin D Discontinued 1 TABLET PO DAILY May 10, 2020 12:00am November 11, 2020 11:26am Vitamin D 1 TAB (2 sources) Start: 05-10-2020 End: 11-11-2020 take 1 tablet by mouth once daily Vitamin D 1 TAB Discontinued 1 {tbl} PO DAILY May 10, 2020 12:00am November 11, 2020 11:26am Problems Active Problems Problem Classification Problem Date Documented Date Episodic/Chronic Abdominal hernia (1 source) Hiatal hernia 01-11-2024 Episodic Acquired foot deformities (20 sources) Acquired hallux malleus; Translations: [Other hammer toe(s) (acquired), unspecified foot] Onset: 07-23-2008 07-23-2008 Chronic Acute myocardial infarction (1 source) Myocardial infarction 01-11-2024 Chronic Aortic; peripheral; and visceral artery aneurysms (20 sources) Thoracic aortic aneurysm without rupture; Translations: [Thoracic aortic aneurysm, without rupture] Onset: 08-26-2019 08-26-2019 Chronic Cardiac dysrhythmias (20 sources) Atrial fibrillation; Translations: [Unspecified atrial fibrillation] Onset: 02-12-2023 Chronic Cardiac dysrhythmias (4 sources) Palpitations; Translations: [Palpitations] 11-24-2022 Episodic Chronic kidney disease (20 sources) Chronic kidney disease stage 3A ; Translations: [Stage 3a chronic kidney disease] Onset: 10-14-2016 09-26-2021 Chronic Chronic kidney disease (2 sources) Chronic kidney disease; Translations: [Stage 3b chronic kidney disease (HCC)] Onset: 09-26-2021 Chronic obstructive pulmonary disease and bronchiectasis (4 sources) Bronchitis; Translations: [Bronchitis, not specified as acute or chronic] 11-24-2022 Episodic Conditions associated with dizziness or vertigo (2 sources) Benign paroxysmal positional vertigo; Translations: [Benign paroxysmal vertigo, unspecified ear] 08-23-2024 Episodic Coronary atherosclerosis and other heart disease (20 sources) Coronary atherosclerosis; Translations: [Atherosclerotic heart disease of [place] coronary artery without angina pectoris] Onset: 07-30-2010 Resolved: 07-18-2023 Chronic Coronary atherosclerosis and other heart disease (20 sources) Stented coronary artery; Translations: [Presence of coronary angioplasty implant and graft] Onset: 01-27-2011 Episodic Comment on above: PTCA/CHRISTELLE to LAD 03/09 Deficiency and other anemia (1 source) Anemia; Translations: [Anemia, unspecified] Onset: 01-12-2024 Episodic Diabetes mellitus with complications (3 sources) Microalbuminuria due to type 2 diabetes mellitus; Translations: [Type 2 diabetes mellitus with other diabetic kidney complication] Onset: 06-20-2025 Chronic Diabetes mellitus without complication (20 sources) Type 2 diabetes mellitus; Translations: [Type 2 diabetes mellitus without complications] Onset: 10-14-2016 09-26-2021 Chronic Disorders of lipid metabolism (20 sources) Pure hypercholesterolemia; Translations: [Pure hypercholesterolemia, unspecified] Onset: 06-15-2006 Chronic Diverticulosis and diverticulitis (20 sources) Diverticulitis of colon; Translations: [Diverticulitis of large intestine without perforation or abscess without bleeding] Onset: 08-22-2010 08-22-2010 Chronic Esophageal disorders (20 sources) Gastroesophageal reflux disease; Translations: [Gastro-esophageal reflux disease without esophagitis] Onset: 11-13-2009 11-13-2009 Chronic Essential hypertension (20 sources) Essential hypertension; Translations: [Essential (primary) hypertension] Onset: 03-02-2022 Chronic Genitourinary symptoms and ill-defined conditions (1 source) Incontinence without sensory awareness; Translations: [Incontinence without sensory awareness] Chronic Heart valve disorders (10 sources) Tricuspid valve regurgitation; Translations: [Rheumatic tricuspid insufficiency] Onset: 08-14-2025 01-09-2025 Chronic Hypertension with complications and secondary hypertension (20 sources) Hypertensive renal disease; Translations: [Hypertensive chronic kidney disease with stage 1 through stage 4 chronic kidney disease, or unspecified chronic kidney disease] Onset: 09-26-2021 09-26-2021 Chronic Malaise and fatigue (1 source) Fatigue; Translations: [Other fatigue] Episodic Mood disorders (1 source) Depressive disorder; Translations: [Depression, unspecified depression type] Chronic Nutritional deficiencies (5 sources) Vitamin D deficiency; Translations: [Vitamin D deficiency, unspecified] Onset: 06-20-2025 Chronic Occlusion or stenosis of precerebral arteries (20 sources) Carotid artery occlusion; Translations: [Occlusion and stenosis of unspecified carotid artery] Onset: 01-03-2010 12-18-2024 Chronic Osteoarthritis (1 source) Osteoarthritis; Translations: [Unspecified osteoarthritis, unspecified site] Onset: 01-11-2024 Chronic Other aftercare (3 sources) Long-term current use of drug therapy; Translations: [Other [facility] (current) drug therapy] 06-14-2024 Episodic Other aftercare (2 sources) Long-term current use of anticoagulant; Translations: [termite control representative (current) use of anticoagulants] 01-15-2025 Episodic Other circulatory disease (2 sources) H/O: atrial fibrillation; Translations: [Personal history of other diseases of the circulatory system] 01-15-2025 Episodic Other circulatory disease (2 sources) H/O: heart disorder; Translations: [Personal history of other diseases of the circulatory system] 01-15-2025 Episodic Other connective tissue disease (2 sources) History of left shoulder arthroplasty; Translations: [Presence of left artificial shoulder joint] Onset: 01-12-2024 Chronic Other connective tissue disease (1 source) Other specified soft tissue disorders; Translations: [Swelling of limb] Onset: 11-26-2023 Episodic Other connective tissue disease (1 source) Other symptoms and signs involving the musculoskeletal system; Translations: [Popliteal fullness] Onset: 11-26-2023 Episodic Other connective tissue disease (1 source) Swelling of limb; Translations: [Other specified soft tissue disorders] 12-19-2023 Episodic Other connective tissue disease (1 source) Finding of knee region; Translations: [Other symptoms and signs involving the musculoskeletal system] 12-19-2023 Episodic Other diseases of kidney and ureters (1 source) Disorder of kidney and/or ureter; Translations: [Disorder of kidney and ureter, unspecified] Onset: 01-11-2024 Episodic Other diseases of kidney and ureters (1 source) Kidney disease 01-11-2024 Episodic Other eye disorders (1 source) Lesion of eyelid; Translations: [Unspecified disorder of eyelid] 11-18-2024 Episodic Other female genital disorders (1 source) Vaginal irritation; Translations: [Other specified noninflammatory disorders of vagina] Episodic Other female genital disorders (1 source) Lesion of vulva; Translations: [Other specified noninflammatory disorders of vulva and perineum] 09-11-2024 Episodic Other hematologic conditions (1 source) Hemoglobin low; Translations: [Precipitous drop in hematocrit] Episodic Other lower respiratory disease (2 sources) Cough; Translations: [Acute cough] 07-21-2023 Episodic Other lower respiratory disease (4 sources) Rib pain; Translations: [Pleurodynia] 03-19-2021 Episodic Other lower respiratory disease (2 sources) Cough; Translations: [Acute cough] 02-04-2025 Episodic Other non-traumatic joint disorders (1 source) Shoulder pain; Translations: [Pain in unspecified shoulder] 11-08-2023 Episodic Other nutritional; endocrine; and metabolic disorders (2 sources) H/O: diabetes mellitus; Translations: [Personal history of other endocrine, nutritional and metabolic disease] 01-15-2025 Episodic Other skin disorders (1 source) Eruption; Translations: [Rash and other nonspecific skin eruption] Episodic Other upper respiratory infections (2 sources) Bacterial sinusitis; Translations: [Chronic sinusitis, unspecified] 07-21-2023 Chronic Dottie-; endo-; and myocarditis; cardiomyopathy (except that caused by tuberculosis or sexually transmitted disease) (5 sources) Cardiomyopathy; Translations: [Cardiomyopathy, unspecified] Onset: 08-14-2025 01-09-2025 Chronic Screening and history of mental health and substance abuse codes (2 sources) Patient encounter status; Translations: [Encounter for screening for depression] 12-18-2024 Episodic Skin and subcutaneous tissue infections (1 source) Cellulitis of perineum; Translations: [Cellulitis of perineum] 09-11-2024 Episodic Spondylosis; intervertebral disc disorders; other back problems (20 sources) Disorder of lumbar disc; Translations: [Other intervertebral disc displacement, lumbar region] Onset: 02-07-2013 Resolved: 05-17-2020 10-21-2015 Chronic Thyroid disorders (20 sources) Hypothyroidism; Translations: [Hypothyroidism, unspecified] Onset: 11-24-2021 11-24-2021 Chronic Unclassified (1 source) Longstanding persistent atrial fibrillation; Translations: [Longstanding persistent atrial fibrillation] Onset: 08-14-2025 Unclassified (1 source) Other pericardial effusion (noninflammatory); Translations: [Other pericardial effusion (noninflammatory)] Onset: 10-18-2024 Unclassified (1 source) Other persistent atrial fibrillation; Translations: [Persistent atrial fibrillation (HCC)] Onset: 06-20-2025 Unclassified (1 source) Acute cough; Translations: [Acute cough] Onset: 02-05-2025 Past or Other Problems Problem Classification Problem Date Documented Date Episodic/Chronic Abdominal pain (4 sources) Left flank pain; Translations: [Unspecified abdominal pain] Onset: 05-25-2025 05-25-2025 Episodic E Codes: Fall (3 sources) Fall; Translations: [Unspecified fall, initial encounter] Onset: 05-25-2025 05-25-2025 Episodic E Codes: Fall (1 source) Fall 05-25-2025 Esophageal disorders (20 sources) Esophagitis; Translations: [Esophagitis] Onset: 04-03-2011 Resolved: 09-26-2021 09-26-2021 Episodic Genitourinary symptoms and ill-defined conditions (1 source) Proteinuria, unspecified; Translations: [Controlled type 2 diabetes mellitus with microalbuminuria, without long-term current use of insulin (HCC)] Onset: 06-20-2025 Episodic Headache; including migraine (20 sources) Migraine; Translations: [Migraine, unspecified, not intractable, without status migrainosus] Onset: 08-23-2009 Resolved: 11-19-2020 11-19-2020 Chronic Immunizations and screening for infectious disease (5 sources) Requires varicella vaccination; Translations: [Encounter for immunization] Onset: 06-20-2025 Episodic Nonspecific chest pain (9 sources) Chest pain; Translations: [Chest pain, unspecified] Onset: 02-07-2025 08-20-2023 Episodic Other aftercare (1 source) Other termite control representative (current) drug therapy; Translations: [Encounter for long-term current use of medication] Onset: 06-11-2025 Episodic Other connective tissue disease (20 sources) Dupuytren's contracture; Translations: [Palmar fascial fibromatosis [Dupuytren]] Onset: 11-01-2012 11-24-2021 Episodic Other connective tissue disease (20 sources) Triggering of digit; Translations: [Trigger finger, left ring finger] Onset: 12-19-2012 12-19-2012 Episodic Other connective tissue disease (20 sources) Trigger thumb of left hand; Translations: [Trigger thumb, left thumb] Onset: 08-12-2017 Resolved: 11-26-2017 11-26-2017 Episodic Other lower respiratory disease (1 source) Pleurodynia; Translations: [Rib pain on left side] Onset: 05-25-2025 Episodic Other non-traumatic joint disorders (20 sources) Shoulder joint pain; Translations: [Pain in unspecified shoulder] Onset: 09-17-2008 09-17-2008 Episodic Other non-traumatic joint disorders (20 sources) Pain in left knee; Translations: [Pain in joint, lower leg] Onset: 10-06-2018 10-06-2018 Episodic Residual codes; unclassified (20 sources) History of lumbar laminectomy; Translations: [Other specified postprocedural states] Onset: 10-21-2015 10-21-2015 Episodic Residual codes; unclassified (20 sources) History of cardiac catheterization; Translations: [Other specified postprocedural states] Onset: 02-27-2022 02-12-2023 Episodic Comment on above: LEFT MAIN: Angiograp hically normal; LEFT ANTERIOR DESCENDING ARTERY:PROX LAD: Previously placed stent is patent with mild luminal irregularities; CIRCUMFLEX ARTERY: PROX CIRC: Mild luminal irregularitiesMID CIRC: Mild luminal irregularities; RIGHT CORONARY ARTERY: Mild luminal irregularities; AORTIC ROOT: possible dilatation per cardiac cath 03/24/22 Dr. rTinh Residual codes; unclassified (1 source) Other specified postprocedural states; Translations: [Other specified postprocedural states] Onset: 02-07-2025 Episodic Spondylosis; intervertebral disc disorders; other back problems (20 sources) Thoracic and lumbosacral neuritis; Translations: [Radiculopathy, thoracic region] Onset: 06-30-2007 Resolved: 08-08-2007 12-09-2017 Episodic Unclassified (20 sources) SUMMARY Onset: 01-29-2011 Resolved: 09-26-2021 11-24-2021 Results Test Name Value Interpretation Reference Range Facility Echo Complete 09-18-2025 Echo Complete [facility] [address] [place] [address] Echo Complete 09/18/25 1303 MR#: [id number] Acct: [id number] Name: DOLORES VILLA Rep #: [id number] : 1945 79 From: Tae Capellan MD Attending Dr: Dr. Tae Capellan MD Status: REG CLI Ordering Dr: Tae Capellan MD Date: 09/18/25 Location: [facility] Sex: F C Admitted: Reason For Study Reason For Study: CAD/ASHD Procedure This was a 2D Doppler, Color Flow transthoracic echocardiogram. Exam performed in department. Left Ventricle Normal LV size. Moderate concentric left ventricular hypertrophy. The left ventricular ejection fraction is 50 %. Stage 1 diastolic dysfunction. Right Ventricle Moderately dilated right ventricular cavity. Moderate RV systolic dysfunction. Atria There is severe biatrial dilatation. Mitral Valve Mild (1+) mitral valve insufficiency. Tricuspid Valve Severe (4+) tricuspid valve insufficiency. Right ventricular systolic pressure estimated to be 31 mmHg. Aortic Valve Trisinus/trileaflet aortic valve. Pulmonic Valve Mild (1+) pulmonic valve insufficiency. Great Vessels Mildly dilated aortic root. Pericardium/Pleural Small (<1.0 cm) pericardial effusion. MMode/2D Measurements Calculations LVIDd: 2.5 cm IVSd: 1.5 cm Ao root diam: 3.9 cm LVIDs: 2.4 cm LVPWd: 1.7 cm RVDd: 4.1 cm FS: 2.7 % LAV(MOD-bp): 47.7 ml LVAd ap4: 17.6 cm2 LVAd ap2: 17.1 cm2 LAV(MOD-bp) Indexed: 32.7 ml/m2 LVLd ap4: 6.3 cm LVLd ap2: 6.1 cm LAV(MOD-sp2): 46.1 ml EDV(MOD-sp4): 41.1 ml EDV(MOD-sp2): 39.7 ml LAV(MOD-sp4): 51.9 ml EDV(sp4-el): 42.2 ml EDV(sp2-el): 40.9 ml LVAs ap4: 11.6 cm2 LVAs ap2: 9.8 cm2 LVLs ap4: 5.9 cm LVLs ap2: 5.4 cm ESV(MOD-sp4): 19.6 ml ESV(MOD-sp2): 14.9 ml ESV(sp4-el): 19.1 ml ESV(sp2-el): 14.8 ml EF(MOD-sp4): 52.2 % EF(MOD-sp2): 62.5 % EF(sp4-el): 54.7 % SV(MOD-sp4): 21.4 ml SV(MOD-sp2): 24.8 ml SV(sp4-el): 23.1 ml SI(MOD-sp4): 14.7 ml/m2 SI(MOD-sp2): 17.0 ml/m2 LA A4 area: 19.0 cm2 LA dimension(2D): 4.4 cm RA A4 area: 20.4 cm2 TAPSE: 0.59 cm Time Measurements MV dec time: 0.14 sec Doppler Measurements Calculations MV E max evie: 91.1 cm/sec Lat Peak E' Evie: 6.6 cm/sec Med Peak E' Evie: 4.5 cm/sec E/E' lat: 13.9 E/E' med: 20.0 MV V2 max: 101.6 cm/sec MV P1/2t max evie: 101.4 cm/sec Ao V2 max: 66.6 cm/sec MV max P.1 mmHg MV P1/2t: 55.6 msec Ao max P.8 mmHg MV V2 mean: 47.5 cm/sec Ao V2 mean: 39.8 cm/sec MV mean P.2 mmHg MV dec slope: 533.6 cm/sec2 Ao mean P.79 mmHg MV V2 VTI: 19.6 cm MVA(P1/2t): 4.0 cm2 Ao V2 VTI: 10.9 cm AV (velocity ratio): 0.81 LV V1 max: 48.6 cm/sec PA V2 max: 61.9 cm/sec TR max evie: 196.5 cm/sec LV V1 max P.95 mmHg TR max P.6 mmHg LV V1 mean P.49 mmHg LV V1 mean: 32.2 cm/sec LV V1 VTI: 8.8 cm ECHO/Echo Complete Interpretation Summary Moderate concentric left ventricular hypertrophy. The left ventricular ejection fraction is 50 %. Stage 1 diastolic dysfunction. Moderately dilated right ventricular cavity. Moderate RV systolic dysfunction. There is severe biatrial dilatation. Mild (1+) mitral valve insufficiency. Severe (4+) tricuspid valve insufficiency. Pulmonary artery systolic pressure likely underestimated secondary to mild coaptation of tricuspid valve leaflets. Mild (1+) pulmonic valve insufficiency. Mildly dilated aortic root. Small (<1.0 cm) pericardial effusion. Ordering Physician: Tae Capellan Referring Physician: Matthew Spencer Performed By: Mallorie Dalton RDCS 09/18/25 1508 Date Tae Capellan MD CC: Dr. Tae Capellan MD; Dr. 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 [place] [address] OFFICE VISIT Date of Service: 08/14/25 MR#: [id number] Acct: [id number] Name: DOLORES VILLA Rep #: [id number] : 1945 Provider: Dr. Tae Capellan MD Age/Sex: 79/F [place] [facility] [place] Status: Signed HPI HPI History of Present Illness Details: This lady with history of permanent atrial fibrillation, coronary artery disease, diabetes mellitus, hypertension, tricuspid valve regurgitation and mild LV systolic dysfunction is here for follow-up visit. Denies any complaints today. No chest pain. No shortness of breath. No palpitations. No orthopnea or PND. No ankle edema. Denies any lightheadedness or dizziness. No syncope or presyncope. Patient has been complaining of frequent urination with taking her furosemide 20 mg daily. Intake Vital Signs 02/15/25 14:02 08/14/25 14:34 Height 5 ft 5 ft Weight: 113 lb 112 lb BMI 22.0 21.9 BP 96/58 L 90/57 L Blood Pressure Location Lt brachial Lt brachial Position Sitting Sitting Respiration 16 16 Pulse 81 77 Pulse Source Monitor Monitor Pulse Oximetry (%) 96 Oxygen Delivery Method room air Intake Visit Reasons: 6 M FU Radiation Oncology Manager Required: No Accompanied by: Self Is patient in pain?: No Allergies hydrochlorothiazide Allergy (Verified 08/14/25 14:34) headache lorazepam (From Ativan) Allergy (Verified 08/14/25 14:34) Unknown NSAIDS (Non-Steroidal Anti-Inflamma Allergy (Verified 08/14/25 14:34) Swelling Sulfa (Sulfonamide Antibiotics) Allergy (Verified 08/14/25 14:34) Unknown Medications ???Medication ???Instructions ???Recorded ???Confirmed ???Type levothyroxine 75 mcg tablet 75 mcg PO DAILY 04/11/15 08/14/25 History multivitamin with folic acid 400 1 tab PO DAILY 04/11/15 08/14/25 H istory mcg tablet nitroglycerin 0.4 mg sublingual 0.4 mg sublingual Q5M PRN Chest 08/14/25 History tablet Pain glipizide 5 mg tablet 5 mg PO BID 07/27/19 08/14/25 Hist ory omeprazole 20 mg capsule,delayed 20 mg PO DAILY 08/20/23 08/14/25 H istory release ferrous sulfate 325 mg (65 mg 325 mg PO DAILY 02/23/24 08/14/25 History iron) tablet folic acid 800 mcg tablet 0.8 mg PO DAILY 02/23/24 08/14/25 History metformin 500 mg tablet,extended 500 mg PO BID 02/23/24 08/14/25 Hi story release 24 hr rosuvastatin 40 mg tablet 40 mg PO QHS #90 tabs 11/10/24 Rx metoprolol tartrate 50 mg tablet 50 mg PO BID #180 tabs 02/15/25 Rx dapagliflozin propanediol 10 mg 10 mg PO QAM #90 tabs 03/14/25 Rx tablet (Farxiga) apixaban 5 mg tablet (Eliquis) 5 mg PO BID #180 tabs 03/19/25 Rx acetaminophen 500 mg tablet 1,000 mg PO Q8H PRN 08/14/2508/14 History cholecalciferol (vitamin D3) 50 2,000 unit PO DAILY 08/14/2508/14 History mcg (2,000 unit) capsule furosemide 20 mg tablet (Lasix) 20 mg PO Q OTHER DAY #30 tabs 07/3008/14/25 Rx isosorbide mononitrate 30 mg 30 mg PO QAM #30 tabs 08/14/25 Rx tablet,extended release 24 hr lisinopril 10 mg tablet 10 mg PO QDAY 08/14/25 08/14/25 Hi story potassium chloride 10 mEq 10 meq PO .every other day #30 tab s 08/14/25 08/14/25 Rx tablet,extended release(part/cryst) Ejection fraction %: 57 Have you fallen in the past year?: No PFSH Medical History Longstanding persistent atrial fibrillation Preoperative cardiovascular examination Chest pain PAF (paroxysmal atrial fibrillation) New onset atrial fibrillation Angina pectoris Type 2 diabetes mellitus Presence of stent in coronary artery ( 01/30/11) Atherosclerotic heart disease of [place] coronary artery without angina pectoris Pure hypercholesterolemia Essential hypertension GERD (gastroesophageal reflux disease) Hypothyroidism Surgical History H/O shoulder replacement History of left heart catheterization (LHC) ( 03/24/22) History of repair of right rotator cuff ( 01/10/21) History of tonsillectomy History of lumpectomy of both breasts History of hemorrhoidectomy History of hysterectomy History of colectomy Status post trigger finger release Presence of coronary angioplasty implant and graft ( 01/30/11) Family History Mother Myocardial infarction Father Myocardial infarction Hypertension Brother CAD (coronary artery disease) CVA (cerebral vascular accident) Brother Myocardial infarction CAD (coronary artery disease) Sister Myocardial infarction CAD (coronary artery disease) Social History Smoking Status: Never smoker (more content not included)... Normal [facility] Basic metabolic 2000 panelon 07-20-2025 Anion gap [Moles/Vol] 11 mmol/L Normal 8-15 [facility] Comment on above: Order Comment: Speci men Type: BLOOD SPECIMENOrdering Facility: [facility] Address: [address] [place] [address] Performed By: #### 2 4321-2 ####[facility] [id number] [place] [address] [place] Calcium [Mass/Vol] 9.9 mg/dL Normal 8.5-10.2 [facility] Comment on above: Order Comment: Speci men Type: BLOOD SPECIMENOrdering Facility: [facility] Address: [address] [place] [address] Performed By: #### 2 4321-2 ####[facility] MILLTOWNCLIA [id number] [place] [address] [place] Chloride [Moles/Vol] 102 mmol/L Normal 98-107 [facility] Comment on above: Order Comment: Speci men Type: BLOOD SPECIMENOrdering Facility: [facility] Address: [address] [place] [address] Performed By: #### 2 4321-2 ####[facility] [id number] [place] [address] [place] CO2 [Moles/Vol] 24 mmol/L Normal 22-30 [facility] Comment on above: Order Comment: Speci men Type: BLOOD SPECIMENOrdering Facility: [facility] Address: [address] [place] [address] Performed By: #### 2 4321-2 ####[facility] [id number] [place] [address] [place] Creatinine [Mass/Vol] 1.57 mg/dL High 0.58-0.96 [facility] Comment on above: Order Comment: Speci men Type: BLOOD SPECIMENOrdering Facility: [facility] Address: [address] [place] [address] Performed By: #### 2 4321-2 ####[facility] [id number] [place] [address] [place] eGFRcr SerPlBld CKD-EPI 2020 33 mL/min/1.73m??? Low >=60 [facility] Comment on above: Order Comment: Speci men Type: BLOOD SPECIMENOrdering Facility: [facility] Address: [address] [place] [address] Result Comment: Candace mated Glomerular Filtration Rate (eGFR) is calculated using the 2020 CKD-EPI creatinine equation. This equation utilizes serum creatinine, sex, and age as parameters. The creatinine assay has traceable calibration to isotope dilution-mass spectrometry. Refer to KDIGO guidelines for clinical interpretation. In patients with unstable renal function, e.g. those with acute kidney injury, the eGFR may not accurately reflect actual GFR. Performed By: #### 2 4321-2 ####[facility] LORETTATOWNCLIA [id number] [place] [address] [place] Glucose [Mass/Vol] 139 mg/dL High 74-99 [facility] Comment on above: Order Comment: Speci men Type: BLOOD SPECIMENOrdering Facility: [facility] Address: [address] [place], [place] [id number] Result Comment: The [place] Diabetes Association (ADA) provides guidance for cutoff values for fasting glucose and random glucose. The ADA defines fasting as no caloric intake for at least 8 hours. Fasting plasma glucose results between 100 to 125 mg/dL indicate increased risk for diabetes (prediabetes). Fasting plasma glucose results greater than or equal to 126 mg/dL meet the criteria for diagnosis of diabetes. In the absence of unequivocal hyperglycemia, results should be confirmed by repeat testing. In a patient with classic symptoms of hyperglycemia or hyperglycemic crisis, random plasma glucose results greater than or equal to 200 mg/dL meet the criteria for diagnosis of diabetes. Reference: Standards of Medical Care in Diabetes 2016, [place] [employer] Association. Diabetes Care. 2016.39(Suppl 1). Performed By: #### 2 4321-2 ####[facility] [id number] [place] [address] [place] Potassium [Moles/Vol] 4.1 mmol/L Normal 3.7-5.1 [facility] Comment on above: Order Comment: Julius mayfield Type: BLOOD SPECIMENOrdering Facility: [facility] Address: [address] [place] [address] Performed By: #### 2 4321-2 ####[facility]CL[facility] [id number] [place] [address] [place] Sodium [Moles/Vol] 137 mmol/L Normal 136-144 [facility] Comment on above: Order Comment: Speci men Type: BLOOD SPECIMENOrdering Facility: [facility] Address: [address] [place] [address] Performed By: #### 2 4321-2 ####[facility]ITAL[facility] [id number] [place] [address] [place] Urea nitrogen [Mass/Vol] 23 mg/dL High 7-21 [facility] Comment on above: Order Comment: Speci men Type: BLOOD SPECIMENOrdering Facility: [facility] Address: [address] [place] [address] Performed By: #### 2 4321-2 ####[facility] [id number] [place] [address] [place] T4 Free SerPl-mCncon 025 Free T4 [Mass/Vol] 1.3 ng/dL Normal 0.9-1.7 [facility] Comment on above: Order Comment: Speci men Type: BLOOD SPECIMEN Ordering Facility: [facility] Address: [address] [place] [address] Performed By: #### 2 4331-1, , #### [facility] CLIA [id number] [address] [place] [address] [place] TSH SerPl-aCncon 07-20-2025 TSH Qn 6.660 m[IU]/L High 0.270-4.200 [facility] Comment on above: Order Comment: Speci men Type: BLOOD SPECIMEN Ordering Facility: [facility] Address: [address] [place] [address] Performed By: #### 2 4331-1, , 48505-5 #### [facility] CLIA [id number] [address] [place] [address] [place] CNOVon 06-20-2025 CNOV Office Visit (INTMWS ) DOLORES VILLA ([id number]) 1945 F Date Time Provider Department 06/20/25 8:40 AM MATTHEW SPENCER INTMWS During your visit today, we recorded the following information about you: Temperature Pulse Respiration Blood pressure 97.8 degrees 72/minute 20/minute 120/80 Weight Height 53.6 kg 1.524 m Matthew Spencer MD 06/28/2025 2:41 PM Addendum Subjective Dolores Villa is a 79 year old female. HPI Dolores Villa is a 79-year-old female with a history of DM, CKD, and A-fib, presenting for a Medicare Annual Wellness Visit. Dolores reports difficulty maintaining adequate hydration, consuming less than 6-8 cups of fluid daily. She notes increased urinary frequency since starting Farxiga, which she attributes to the medication's effects. She is currently taking Farxiga 5 mg, glipizide, and metformin BID for diabetes management. Recent lab results show an A1c of 7.1. She expresses a desire to reduce her medication burden if possible. She reports chronic insomnia, averaging 2-3 hours of sleep per night for many years. She takes naps around 1300 for about an hour but is considering discontinuing this practice as it affects her nighttime sleep. She denies any significant symptoms of depression. She experiences fatigue and leg weakness, particularly when climbing stairs, which limits her exercise to once a week. She aims to increase her walking routine to 30 minutes per session and engages in yard work. She consumes healthy foods several days a week, including mixed vegetables and fruits. Dolores has a history of falls, one of which resulted in rib pain and dyspnea, although imaging did not show any fractures. She describes a recent fall where she hit her head and was unable to move for 30 minutes. She uses a medical alert system at home but notes it is ineffective outside her residence. She is scheduled for an eye exam with Dr. Cochran next month and sees a payroll consultant at the [facility]. Dolores has a living will on file from 2006 but is unsure about her healthcare power of banking attorney. She has one living sister with a history of diabetes and HTN. PAST MEDICAL HISTORY Diagnosis Date Abdominal pain, left lower quadrant Abdominal pain, unspecified site 08/22/2010 Arthritis 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 09/20/2018 Added automatically from request for surgery [id number] Barretts esophagus EGD 2010 and 08/25/13 Bronchitis 07/30/2010 Pt was having cough with chest pain . -Was started on nebulisation and antibiotic at [facility]. -Symtoms better now. CAD (coronary artery disease) s/p PCI/CHRISTELLE to LAD with 2.75x15 Xience dilated to 3.4 Complication of anesthesia nausea, vomiting Controlled type 2 diabetes mellitus without complication, without long-term current use of insulin ([facility]) 10/14/2016 Contusion of shoulder region Diverticulitis of sigmoid colon 09/17/2010 Dupuytren's contracture 11/01/2012 left worse than right Enlargement of lymph nodes Esophageal reflux Esophagitis, unspecified 04/03/2011 Generalized osteoarthrosis, unspecified site History of colonic polyps 09/20/2018 Added automatically from request for surgery [id number] Hypertension Kidney disease Lichen sclerosus Migraine 08/23/2009 Migraine without aura, without mention of intractable migraine without mention of status migrainosus Pain in joint, shoulder region PONV (postoperative nausea and vomiting) Pure hypercholesterolemia Sciatica 10/09/2010 Sebaceous cyst 05/01/2015 Subacute thyroiditis Thoracic aortic aneurysm without rupture 08/26/2019 Trigger thumb of left hand 08/12/2017 Added automatically from request for surgery [id number] Surgery effective Unspecified hypothyroidism Current Outpatient Medications Medication Sig lisinopril (ZESTRIL) 10 mg tablet Take 1 tablet by mouth once daily. metoprolol tartrate, short acting, (LOPRESSOR) 50 mg tablet Take 1 tablet by mouth two times a day. cholecalciferol (VITAMIN D3) 50 mcg (2,000 unit) tablet Take 1 tablet by mouth once daily. dapagliflozin propanediol (FARXIGA) 5 mg tablet Take 1 tablet by mouth daily with breakfast. blood sugar diagnostic (BLOOD GLUCOSE TEST) test strip Test blood sugar(s) 1 time daily and as needed. Dx: Type 2 DM - Uncontrolled E11.9 Insulin: No omeprazole (PRILOSEC) 20 mg capsule Take 1 capsule by mouth daily before breakfast. 1/2 hr before meal. glipiZIDE (GLUCOTROL) 5 mg tablet Take 1 tablet by mouth two times a day before meals. Lancets Test blood sugar(s) 1 time daily and as needed. Dx: Type 2 DM - Uncontrolled E11.9 Insulin: No levothyroxine (SYNTHROID) 75 mcg tablet Take 1 tablet by mouth once daily. FOLIC ACID ORAL Take by mouth. ferrous sulfate (IRON) 325 mg (65 mg iron) tablet Take 325 mg by mouth. nitroglycerin sublingual (NITROQUICK) 0.4 mg SL tablet Dissolve 1 tablet under the tongu (more content not included)... Normal [facility] US CAROTID ARTERIES ENRIKE VAS LABon 06-19-2025 US CAROTID ARTERIES [facility] Non-Invasive [facility] Carotid Duplex Bilateral/Complete Date of service/time: 06/19/2025 1:25:52 PM Name: MRS. DOLORES VILLA Date of : 1945 Age: 79 years Gender: F Clinical Indication Follow-up study on a patient with known carotid disease. TECHNIQUE -------- A carotid duplex ultrasound examination was performed, including grayscale imaging and color Doppler and spectral Doppler examination of the below mentioned arteries. FINDINGS -------- RIGHT SIDE Common carotid artery: Origin: PSV: 49 cm/s. EDV: 11 cm/s. Proximal: PSV: 59 cm/s. EDV: 9 cm/s. Mid: PSV: 68 cm/s. EDV: 17 cm/s. Distal: PSV: 72 cm/s. EDV: 11 cm/s. Internal carotid artery: Origin: PSV: 52 cm/s. EDV: 11 cm/s. Proximal: PSV: 116 cm/s. EDV: 23 cm/s. Mid: PSV: 90 cm/s. EDV: 25 cm/s. Distal: PSV: 50 cm/s. EDV: 13 cm/s. ICA/CCA Ratio: 1.6 External carotid artery: Proximal: PSV: 94 cm/s. EDV: 0 cm/s. Mild heterogeneous plaque at origin. Subclavian artery: Proximal: PSV: 93 cm/s. EDV: 0 cm/s. Innominate artery: PSV: 72 cm/s. EDV: 6 cm/s. Vertebral artery: PSV: 44 cm/s. EDV: 12 cm/s. LEFT SIDE Common carotid artery: Proximal: PSV: 72 cm/s. EDV: 12 cm/s. Mid: PSV: 65 cm/s. EDV: 11 cm/s. Distal: PSV: 62 cm/s. EDV: 16 cm/s. Moderate heterogeneous plaque at distal. Internal carotid artery: Origin: PSV: 61 cm/s. EDV: 15 cm/s. Proximal: PSV: 65 cm/s. EDV: 15 cm/s. Mid: PSV: 72 cm/s. EDV: 25 cm/s. Distal: PSV: 80 cm/s. EDV: 18 cm/s. Mild heterogeneous plaque at origin. ICA/CCA Ratio: 1.0 External carotid artery: Proximal: PSV: 71 cm/s. EDV: 0 cm/s. Mild heterogeneous plaque at origin. Subclavian artery: Proximal: PSV: 98 cm/s. EDV: 0 cm/s. Vertebral artery: PSV: 46 cm/s. EDV: 9 cm/s. IMPRESSION Please note: the new carotid interpretation criteria are used as recommended by [facility] [employer]. When compared with the prior study, of 08/30/2020 no significant change is noted on the right side and no significant change is noted on the left side. RIGHT SIDE Common carotid artery: Patent. Internal carotid artery: <50% stenosis consistent with mild carotid artery disease. Tortuous vessel at proximal . External carotid artery: Patent. Vertebral artery: Patent and antegrade flow noted. Innominate artery: Patent. Subclavian artery: Patent. LEFT SIDE Common carotid artery: Plaque visualized without evidence of hemodynamically significant stenosis. Internal carotid artery: <50% stenosis consistent with mild carotid artery disease. External carotid artery: Patent. Vertebral artery: Patent and antegrade flow noted. Subclavian artery: Patent. Technologist: Sharla Salinas T Ordering physician: DIPIKA HERNANDEZ Interpreting physician: Jack Jansen MD Final CC [employer] Medical Image : [id number] ISUID See Link below for Image Normal [facility] CBC panel Auto (Bld)on 06-11 Erythrocyte distribution width (RBC) [Ratio] 15.4 % High 11.5-15.0 [facility] Comment on above: Order Comment: Speci men Type: BLOOD SPECIMENOrdering Facility: [facility] Address: [address] [place] [address] Performed By: #### 5 8410-2 ####[facility] [id number] [address] [place] Hematocrit (Bld) [Volume fraction] 37.1 % Normal 36.0-46.0 [facility] Comment on above: Order Comment: Speci men Type: BLOOD SPECIMENOrdering Facility: [facility] Address: [address] [place] [address] Performed By: #### 5 8410-2 ####[facility] [id number] [address] [place] Hemoglobin (Bld) [Mass/Vol] 12.2 g/dL Normal 11.5-15.5 [facility] Comment on above: Order Comment: Speci men Type: BLOOD SPECIMENOrdering Facility: [facility] Address: [address] [place] [address] Performed By: #### 5 8410-2 ####[facility] [id number] [place] [address] [place] MCH (RBC) [Entitic mass] 32.9 pg Normal 26.0-34.0 [facility] Comment on above: Order Comment: Speci men Type: BLOOD SPECIMENOrdering Facility: [facility] Address: [address] [place] [address] Performed By: #### 5 8410-2 ####[facility]ITALNCCARO [id number] [place] [address] [place] MCHC (RBC) [Mass/Vol] 32.9 g/dL Normal 30.5-36.0 [facility] Comment on above: Order Comment: Speci men Type: BLOOD SPECIMENOrdering Facility: [facility] Address: [address] [place] [address] Performed By: #### 5 8410-2 ####[facility] HOSPITALJUANSmooth [id number] [place] [address] [place] MCV (RBC) [Entitic vol] 100.0 fL Normal 80.0-100.0 [facility] Comment on above: Order Comment: Speci men Type: BLOOD SPECIMENOrdering Facility: [facility] Address: [address] [place] [address] Performed By: #### 5 8410-2 ####[facility]OSPITALMEENAKSHI [id number] [place] [address] [place] Nucleated RBC (Bld) [#/Vol] 10*3/uL Normal <0.01 [facility] Comment on above: Order Comment: Speci men Type: BLOOD SPECIMENOrdering Facility: [facility] Address: [address] [place], [place] [address] Performed By: #### 5 8410-2 ####[facility]OS[facility]ITALNCLIA [id number] [place] [address] [place] Platelet mean volume (Bld) [Entitic vol] 10.5 fL Normal 9.0-12.7 [facility] Comment on above: Order Comment: Speci men Type: BLOOD SPECIMENOrdering Facility: [facility] Address: [address] [place] [address] Performed By: #### 5 8410-2 ####[facility] LORETTAWNCLIA [id number] [place] [address] [place] Platelets (Bld) [#/Vol] 210 10*3/uL Normal 150-400 [facility] Comment on above: Order Comment: Speci men Type: BLOOD SPECIMENOrdering Facility: [facility] Address: [address] [place] [address] Performed By: #### 5 8410-2 ####[facility] HOSPITALNCLIA [id number] [place] [address] [place] RBC (Bld) [#/Vol] 3.71 10*6/uL Low 3.90-5.[address] [facility] Comment on above: Order Comment: Speci men Type: BLOOD SPECIMENOrdering Facility: [facility] Address: [address] [place] [address] Performed By: #### 5 8410-2 ####[facility]ITALNCLIA [id number] [place] [address] [place] WBC (Bld) [#/Vol] 7.88 10*3/uL Normal 3.70-11.[address] [facility] Comment on above: Order Comment: Speci men Type: BLOOD SPECIMENOrdering Facility: [facility] Address: [address] [place], [place] [address] Performed By: #### 5 8410-2 ####[facility]ITALNCLIA [id number] [place] [address] [facility] Comprehensive metabolic 2000 panelon 06-11-2025 Albumin [Mass/Vol] 4.2 g/dL Normal 3.9-4.9 [facility] Comment on above: Order Comment: Speci men Type: BLOOD SPECIMENOrdering Facility: [facility] Address: [address] [place] [address] Performed By: #### 2 4323-8 ####[facility] MILLTOWNCLIA [id number] [place] [address] [place] ALP [Catalytic activity/Vol] 94 U/L Normal 34-123 [facility] Comment on above: Order Comment: Speci men Type: BLOOD SPECIMENOrdering Facility: [facility] Address: [address] [place] [address] Performed By: #### 2 4323-8 ####[facility] MILLTOWNCLIA [id number] [place] [address] [place] ALT [Catalytic activity/Vol] 9 U/L Normal 7-38 [facility] Comment on above: Order Comment: Speci men Type: BLOOD SPECIMENOrdering Facility: [facility] Address: [address] [place] [address] Performed By: #### 2 4323-8 ####[facility]OS[facility]ITALNCLIA [id number] [place] [address] [place] Anion gap [Moles/Vol] 14 mmol/L Normal 8-15 [facility] Comment on above: Order Comment: Speci men Type: BLOOD SPECIMENOrdering Facility: [facility] Address: [address] [place] [address] Performed By: #### 2 4323-8 ####[facility]ITALNCLIA [id number] [place] [address] [place] AST [Catalytic activity/Vol] 16 U/L Normal 13-35 [facility] Comment on above: Order Comment: Speci men Type: BLOOD SPECIMENOrdering Facility: [facility] Address: [address] [place] [address] Performed By: #### 2 4323-8 ####[facility]ITALTOWNCLIA [id number] [place] [address] [place] Bilirubin [Mass/Vol] 0.5 mg/dL Normal 0.2-1.3 [facility] Comment on above: Order Comment: Speci men Type: BLOOD SPECIMENOrdering Facility: [facility] Address: [address] [place] [address] Performed By: #### 2 4323-8 ####[facility] LORETTAWNCLIA [id number] [place] [address] [place] Calcium [Mass/Vol] 10.0 mg/dL Normal 8.5-10.2 [facility] Comment on above: Order Comment: Speci men Type: BLOOD SPECIMENOrdering Facility: [facility] Address: [address] [place] [address] Performed By: #### 2 4323-8 ####[facility]ITALNCLIA [id number] [place] [address] [place] Chloride [Moles/Vol] 104 mmol/L Normal 98-107 [facility] Comment on above: Order Comment: Speci men Type: BLOOD SPECIMENOrdering Facility: [facility] Address: [address] [place] [address] Performed By: #### 2 4323-8 ####[facility]OS[facility]ITALNCLIA [id number] [place] [address] [place] CO2 [Moles/Vol] 22 mmol/L Normal 22-30 [facility] Comment on above: Order Comment: Speci men Type: BLOOD SPECIMENOrdering Facility: [facility] Address: [address] [place] [address] Performed By: #### 2 4323-8 ####[facility]OS[facility]ITALNCLIA [id number] [place] [address] [place] Creatinine [Mass/Vol] 1.55 mg/dL High 0.58-0.96 [facility] Comment on above: Order Comment: Speci men Type: BLOOD SPECIMENOrdering Facility: [facility] Address: [address] [place] [address] Performed By: #### 2 4323-8 ####[facility]PITALWNCLIA [id number] [place] [address] [place] Creatinine and Glomerular filtration rate.predicted panel (S/P/Bld) 34 mL/min/1.73m??? Low >=60 [facility] Comment on above: Order Comment: Julius mayfield Type: BLOOD SPECIMENOrdering Facility: [facility] Address: [address] [place] [address] Result Comment: Candace mated Glomerular Filtration Rate (eGFR) is calculated using the 2020 CKD-EPI creatinine equation. This equation utilizes serum creatinine, sex, and age as parameters. The creatinine assay has traceable calibration to isotope dilution-mass spectrometry. Refer to KDIGO guidelines for clinical interpretation. In patients with unstable renal function, e.g. those with acute kidney injury, the eGFR may not accurately reflect actual GFR. Performed By: #### 2 4323-8 ####[facility]ITALNCLIA [id number] [place] [address] [place] Glucose [Mass/Vol] 109 mg/dL High 74-99 [facility] Comment on above: Order Comment: Julius mayfield Type: BLOOD SPECIMENOrdering Facility: [facility] Address: [address] [place] [address] Result Comment: The [place] Diabetes Association (ADA) provides guidance for cutoff values for fasting glucose and random glucose. The ADA defines fasting as no caloric intake for at least 8 hours. Fasting plasma glucose results between 100 to 125 mg/dL indicate increased risk for diabetes (prediabetes). Fasting plasma glucose results greater than or equal to 126 mg/dL meet the criteria for diagnosis of diabetes. In the absence of unequivocal hyperglycemia, results should be confirmed by repeat testing. In a patient with classic symptoms of hyperglycemia or hyperglycemic crisis, random plasma glucose results greater than or equal to 200 mg/dL meet the criteria for diagnosis of diabetes. Reference: Standards of Medical Care in Diabetes 2016, [place] Diabetes Association. Diabetes Care. 2016.39(Suppl 1). Performed By: #### 2 4323-8 ####[facility] [id number] [place] [address] [place] Potassium [Moles/Vol] 4.3 mmol/L Normal 3.7-5.1 [facility] Comment on above: Order Comment: Speci men Type: BLOOD SPECIMENOrdering Facility: [facility] Address: [address] [place] [address] Performed By: #### 2 4323-8 ####[facility] HOSPITALWJUANLIA [id number] [place] [address] [place] Protein [Mass/Vol] 7.8 g/dL Normal 6.3-8.0 [facility] Comment on above: Order Comment: Speci men Type: BLOOD SPECIMENOrdering Facility: [facility] Address: [address] [place] [address] Performed By: #### 2 4323-8 ####[facility]PITALLIA [id number] [place] [address] [place] Sodium [Moles/Vol] 140 mmol/L Normal 136-144 [facility] Comment on above: Order Comment: Speci men Type: BLOOD SPECIMENOrdering Facility: [facility] Address: [address] [place] [address] Performed By: #### 2 4323-8 ####[facility] HOSPITALJUANLIA [id number] [place] [address] [place] Urea nitrogen [Mass/Vol] 20 mg/dL Normal 7-21 [facility] Comment on above: Order Comment: Speci men Type: BLOOD SPECIMENOrdering Facility: [facility] Address: [address] [place] [address] Performed By: #### 2 4323-8 ####[facility]ITALNCLIA [id number] [place] [address] [place] HbA1c (Bld)on 06-11-2025 Average glucose Estimated from glycated hemoglobin (Bld) [Mass/Vol] 157 mg/dL Normal [facility] Comment on above: Order Comment: Julius mayfield Type: BLOOD SPECIMEN Ordering Facility: [facility] Address: [address] [place] [address] Result Comment: eAG: (Estimated average glucose) is a calculated value from HgbA1c and is financial service representative of the average blood glucose level in the last 2-3 month period. Performed By: #### 2 4331-1, , #### [facility] CLIA [id number] [address] [place], [place] [address] [place] [address] [place] HbA1c (Bld) [Mass fraction] 7.1 % High 4.3-5.6 [facility] Comment on above: Order Comment: Julius mayfield Type: BLOOD SPECIMEN Ordering Facility: [facility] Address: [address] [place] [address] Result Comment: [place] Diabetes Association guidelines indicate that patients with HgbA1c in the range 5.7-6.4% are at increased risk for development of diabetes, and intervention by lifestyle modification may be beneficial. HgbA1c greater or equal to 6.5% is considered diagnostic of diabetes. Performed By: #### 2 4331-1, , #### [facility] CLIA [id number] [address] [place] [address] [place] Lipid 1996 panelon 5 Cholesterol [Mass/Vol] 113 mg/dL Normal <200 [facility] Comment on above: Order Comment: Julius mayfield Type: BLOOD SPECIMENOrdering Facility: [facility] Address: [address] [place] [address] Result Comment: <200 mg/dL, Desirable 200-239 mg/dL, Borderline high >239 mg/dL, High Performed By: #### 2 4331-1 ####[facility] LABCLIA [id number] [address] STATES OF [facility] [id number] [address] [place] Cholesterol in HDL [Mass/Vol] 36 mg/dL Low >39 [facility] Comment on above: Order Comment: Julius men Type: BLOOD SPECIMENOrdering Facility: [facility] Address: [address] [place] [address] Result Comment: 40-5 9 mg/dL, Acceptable >59 mg/dL, High: Negative risk factor for coronary heart disease <40 mg/dL, Low: Positive risk factor for coronary heart disease Performed By: #### 2 4331-1 ####[facility] LABCLIA [id number] [address] [id number] [place] [address] Cholesterol in LDL [Mass/Vol] 59 mg/dL Normal <100 [facility] Comment on above: Order Comment: Julius men Type: BLOOD SPECIMENOrdering Facility: [facility] Address: [address] [place] [address] Result Comment: <100 mg/dL, Optimal 100-129 mg/dL, Near optimal/above optimal 130-159 mg/dL, Borderline high 160-189 mg/dL, High >189 mg/dL, Very high Secondary prevention optimal LDL Cholesterol levels are recommended to be <70 mg/dL LDL cholesterol is calculated using the Maravilla-NIH equation. Performed By: #### 2 4331-1 ####[facility] LABCLIA [id number] [address] [id number] [place] [address] [place] Cholesterol in LDL/Cholesterol in HDL [Mass ratio] 1.64 {ratio} Normal <2.54 [facility] Comment on above: Order Comment: Deontei chaparro Type: BLOOD SPECIMENOrdering Facility: [facility] Address: [address] [place] [address] Result Comment: Evelyn leger: 1. National Cholesterol Education Program ATP III Guideline At-A-Glance Quick Desk Reference: National Heart, Lung, and Blood Daniels. National Institutes of Health. 2001: NIH Publication No. 01-3305. 2. An International Atherosclerosis Society position paper: global recommendations for the management of dyslipidemia: executive summary, Atherosclerosis. 2014: 232(2):410-413. Performed By: #### 2 4331-1 ####[facility] LABCLIA [id number] [address] [id number] [place] [address] [place] Cholesterol in VLDL [Mass/Vol] 13 mg/dL Normal <30 [facility] Comment on above: Order Comment: Speci men Type: BLOOD SPECIMENOrdering Facility: [facility] Address: [address] [place] [address] Performed By: #### 2 4331-1 ####[facility] LABCLIA [id number] [address] [id number] [place] [address] [place] Cholesterol non HDL [Mass/Vol] 77 mg/dL Normal <130 [facility] Comment on above: Order Comment: Speci men Type: BLOOD SPECIMENOrdering Facility: [facility] Address: [address] [place] [address] Result Comment: <130 mg/dL, Optimal 130-159 mg/dL, Near optimal/above optimal 160-189 mg/dL, Borderline high 190-219 mg/dL, High >219 mg/dL, Very high Secondary prevention optimal non HDL Cholesterol levels are recommended to be <100 mg/dL Performed By: #### 2 4331-1 ####[facility] LABCLIA [id number] [address] [id number] [address] Cholesterol.total/Lavern sterol in HDL [Mass ratio] 3.14 {ratio} Normal <5.10 [facility] Comment on above: Order Comment: Speci men Type: BLOOD SPECIMENOrdering Facility: [facility] Address: [address] [place] [address] Performed By: #### 2 4331-1 ####[facility] LABCLIA [id number] [address] [id number] [place] [address] [place] FASTING TIME 12 hrs Normal [facility] Comment on above: Order Comment: Speci men Type: BLOOD SPECIMENOrdering Facility: [facility] Address: [address] [place] [address] Performed By: #### 2 4331-1 ####[facility] LABCLIA [id number] [address] [id number] [place] [address] Triglyceride [Mass/Vol] 90 mg/dL Normal <150 [facility] Comment on above: Order Comment: Speci men Type: BLOOD SPECIMENOrdering Facility: [facility] Address: [address] [place] [address] Result Comment: <150 mg/dL, Normal 150-199 mg/dL, Borderline high 200-499 mg/dL, High >499 mg/dL, Very high Performed By: #### 2 4331-1 ####[facility] LABIA [id number] [address] [id number] [place] [address] OF [place] Jeromy 06-06-2025 AARONN Telephone (INTMWS) ROEDOLORES DOMINGO ([id number]) 1945 F Date Time Provider Department 06/06/25 MATTHEW SPENCER INTKrystaWS During your visit today, we recorded the following information about you: Shweta Fagan RN 06/06/2025 10:35 AM Signed Patient calls and states that she has medicare wellness visit with provider on 06/20/2025. Patient is asking if provider wants her to get labs done prior to appointment? Please review and advise, HELEN Cash Rosa, APRN.AARON 06/08/2025 2:25 PM Signed Lab orders placed, please let her know. Shira Xavier LPN 06/08/2025 4:11 PM Signed Patient notified of providers message and verbalized understanding Allergies As of Date: 06/06/2025 Noted Allergy Reaction ATIVAN (LORAZEPAM) 12/07/2005 14 - Other: See Comments Comments: family members had MS change BENZONATATE 04/26/2015 8 - GI Upset HCTZ (HYDROCHLOROTHIAZIDE) 12/10/2008 5 - Intolerance Comments: headache SEASONAL ALLERGIES 12/05/2012 14 - Other: See Comments Comments: Receiving allergy shots. SULFA (SULFONAMIDE ANTIBIOTICS) 12/07/2005 16 - Unknown Date Reviewed: 05/25/2025 Reviewed by: Henrique Garcia APRN.INFORMATION CODER - Fully Assessed Reason for Visit: Lab Orders [1688] Primary Visit Diagnosis:Controlled type 2 diabetes mellitus without complication, without long-term current use of insulin (HCC) [E11.9] Other Visit Diagnoses:Stage 3a chronic kidney disease (HCC) [N18.31] Encounter for long-term current use of medication [Z79.899] Pure hypercholesterolemia [E78.00] Order(s):COMPLETE BLOOD COUNT [SQCBC] Order #: [id number] FUTURE COMPREHENSIVE METABOLIC PANEL [SQCMP] Order #: [id number] FUTURE LIPID PANEL, FASTING [SQLIPB] Order #: [id number] FUTURE HEMOGLOBIN A1C [CSGDA3H] Order #: [id number] FUTURE Prescriptions as of 06/08/2025 - blood sugar diagnostic (BLOOD GLUCOSE TEST) test strip Test blood sugar(s) 1 time daily and as needed. Dx: Type 2 DM - Uncontrolled E11.9 Insulin: No - omeprazole (PRILOSEC) 20 mg capsule Take 1 capsule by mouth daily before breakfast. 1/2 hr before meal. - glipiZIDE (GLUCOTROL) 5 mg tablet Take 1 tablet by mouth two times a day before meals. - Lancets Test blood sugar(s) 1 time daily and as needed. Dx: Type 2 DM - Uncontrolled E11.9 Insulin: No - levothyroxine (SYNTHROID) 75 mcg tablet Take 1 tablet by mouth once daily. - FOLIC ACID ORAL Take by mouth. - ferrous sulfate (IRON) 325 mg (65 mg iron) tablet Take 325 mg by mouth. - nitroglycerin sublingual (NITROQUICK) 0.4 mg SL tablet Dissolve 1 tablet under the tongue every 5 minutes as needed. As directed for chest pain. IF NO RELIEF CALL 911 - isosorbide mononitrate ER (IMDUR) 60 mg 24 hr tablet Take 1 tablet by mouth once daily. - ELIQUIS 5 mg tab(s) Take 1 tablet by mouth two times a day. - rosuvastatin (CRESTOR) 40 mg tablet Take 1 tablet by mouth daily at bedtime. - lisinopril (ZESTRIL) 10 mg tablet Take 1 tablet by mouth once daily. - metoprolol tartrate, short acting, (LOPRESSOR) 50 mg tablet Take 1 tablet by mouth two times a day. - Blood Pressure Monitor (BLOOD PRESSURE KIT) 1 Each once daily as needed. - metFORMIN ER (GLUCOPHAGE XR) 500 mg 24 hr tablet Take 1 tablet by mouth two times a day with meals. As directed - cholecalciferol (VITAMIN D3) 50 mcg (2,000 unit) tablet Take 1 tablet by mouth once daily. - ACETAMINOPHEN/DIPHENHYD RAMINE (TYLENOL PM EXTRA STRENGTH ORAL) Take by mouth every 8 hours as needed. - THERAPEUTIC MULTIVITAMIN TAB Take by mouth once daily. Problem List As Of Date 06/06/2025 Noted Resolved Hypothyroidism [E03.9] Mixed hyperlipidemia [E78.2] 06/15/2006 CERVICALGIA [M54.2] 06/30/2007 08/08/2007 OTHER HAMMER TOE [M20.40] 07/23/2008 JOINT PAIN-SHLDER [M25.519] 09/17/2008 Migraine [G43.909] 08/23/2009 11/19/2020 GERD (Gastroesophageal Reflux Disease) [K21.9] 11/13/2009 Occlusion and stenosis of carotid artery withou*01/03/2010 CAD (coronary artery disease) [I25.10] 07/30/2010 Diverticulitis of Colon [K57.32] 08/22/2010 SUMMARY [V999.95] 01/29/2011 09/26/2021 Postsurgical percutaneous transluminal coronary*02/04/2011 Esophagitis [K20.90] 04/03/2011 09/26/2021 Dupuytren's contracture [M72.0] 11/01/2012 Trigger ring finger of left hand [M65.342] 12/19/2012 Sacroiliitis, not elsewhere classified (HCC) [M*02/07/2013 05/17/2020 Thoracic and lumbosacral neuritis [M54.14, M54.*02/07/2013 History of lumbar laminectomy [Z98.890] 10/21/2015 Bulge of lumbar disc without myelopathy [M51.36*10/21/2015 Type 2 diabetes mellitus with stage 3a chronic *10/14/2016 Stage 3a chronic kidney disease (HCC) [N18.31] 10/14/2016 Trigger thumb of left hand [M65.312] 08/12/2017 11/26/2017 Trigger finger, right ring finger [M65.341] 08/08/2018 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 [K22.70] 09/20/2018 Chronic pain of left knee--since contusion [M25*11/0 (more content not included)... Normal [facility] CNOVon 05-25-2025 CNOV Office Visit (INTMWS ) DOLORES VILLA ([id number]) 1945 F Date Time Provider Department 05/25/25 10:00 AM HENRIQUE GARCIA During your visit today, we recorded the following information about you: Pulse Respiration Blood pressure Weight 88/minute 16/minute 124/66 52.7 kg Henrique Garcia APRN.INFORMATION CODER 05/25/2025 10:09 AM Signed SUBJECTIVE Dolores Villa is a 79 year old female here today for acute concern. Chief Complaint Patient presents with: Fall: happened on Wednesday while climbing stairs states she hit her flank/rib area on metal handrail HPI Dolores Villa is a 79-year-old female with a history of diabetes mellitus type 2, presenting with left-sided rib pain following a fall. Dolores reports left-sided rib pain following a fall on Wednesday. She was descending stairs at [employer] when her sandal caught on the steps, causing her to fall sideways into a metal railing. She did not fall down the stairs but experienced significant pain upon impact. She sustained two small bruises and reports difficulty breathing deeply, yawning, or getting up due to pain. She is unable to move her arm backward and has not previously broken a rib. She has been taking regular strength Tylenol, which helps her sleep but does not fully alleviate the pain. She has a history of taking tramadol without issues and denies a history of seizures. Her medications were reviewed today and her list is now up to date. Medications Current Outpatient Medications Medication Sig omeprazole (PRILOSEC) 20 mg capsule Take 1 capsule by mouth daily before breakfast. 1/2 hr before meal. glipiZIDE (GLUCOTROL) 5 mg tablet Take 1 tablet by mouth two times a day before meals. levothyroxine (SYNTHROID) 75 mcg tablet Take 1 tablet by mouth once daily. FOLIC ACID ORAL Take by mouth. ferrous sulfate (IRON) 325 mg (65 mg iron) tablet Take 325 mg by mouth. nitroglycerin sublingual (NITROQUICK) 0.4 mg SL tablet Dissolve 1 tablet under the tongue every 5 minutes as needed. As directed for chest pain. IF NO RELIEF CALL 911 isosorbide mononitrate ER (IMDUR) 60 mg 24 hr tablet Take 1 tablet by mouth once daily. ELIQUIS 5 mg tab(s) Take 1 tablet by mouth two times a day. rosuvastatin (CRESTOR) 40 mg tablet Take 1 tablet by mouth daily at bedtime. lisinopril (ZESTRIL) 10 mg tablet Take 1 tablet by mouth once daily. metoprolol tartrate, short acting, (LOPRESSOR) 50 mg tablet Take 1 tablet by mouth two times a day. metFORMIN ER (GLUCOPHAGE XR) 500 mg 24 hr tablet Take 1 tablet by mouth two times a day with meals. As directed ACETAMINOPHEN/DIPHENHYD RAMINE (TYLENOL PM EXTRA STRENGTH ORAL) Take by mouth every 8 hours as needed. THERAPEUTIC MULTIVITAMIN TAB Take by mouth once daily. traMADol (ULTRAM) 50 mg tablet Take 1 tablet by mouth two times a day as needed for pain for up to 7 days. blood sugar diagnostic (BLOOD GLUCOSE TEST) test strip Test blood sugar(s) 1 time daily and as needed. Dx: Type 2 DM - Uncontrolled E11.9 Insulin: No Lancets Test blood sugar(s) 1 time daily and as needed. Dx: Type 2 DM - Uncontrolled E11.9 Insulin: No Blood Pressure Monitor (BLOOD PRESSURE KIT) 1 Each once daily as needed. cholecalciferol (VITAMIN D3) 50 mcg (2,000 unit) tablet Take 1 tablet by mouth once daily. No current facility-administered medications for this visit. ALLERGIES Allergen Reactions Ativan [Lorazepam] Other: See Comments family members had MS change Benzonatate GI Upset Hctz [Hydrochloroth* Intolerance headache Seasonal Allergies Other: See Comments Receiving allergy shots. Sulfa (Sulfonamide * Unknown ACTIVE PROBLEM LIST Cad (Coronary Artery Disease) - 07/30/2010 (B priority) Comment: Patient presents with unstable angina. However, CP is different from previous episodes of angina. First set of cardiac biomarkers is negative. ECG does not demonstrate ischemia. -heparin drip -Wean off of Nitro drip -Symptom free -Will proceed with [facility] today Mixed Hyperlipidemia - 06/15/2006 (C priority) Comment: Cont home regimen of rosuvastatin Hypothyroidism (C priority) Comment: Cont home regimen of levothyroxine Occlusion and Stenosis of Carotid Artery Without Mention of Cerebral Infarction - 01/03/2010 (D priority) Comment: 70% stenosis of rt carotid No strokes, TIAs, etc History of Left Heart Catheterization (Lhc) - 02/12/2023 Paf (Paroxysmal Atrial Fibrillation) (Hcc) - 02/12/2023 Essential (Primary) Hypertension - 03/02/2022 Pure Hypercholesterolemia - 03/02/2022 Hypertensive Kidney Disease With Stage 3a Chronic Kidney Disease (Hcc) - 09/26/2021 Thoracic Aortic Aneurysm Without Rupture - 08/26/2019 Chronic pain of left knee--since contusion - 10/06/2018 Dial's Esophagus Without Dysplasia - 09/20/2018 Comment: Added automatically from request for surgery [id number] Trigger Finger, Right Ring Finger - (more content not included)... Normal [facility] XR RIB/CHST 3V AP RIB/OBL/CH ST Alok 05-25-2025 XR RIB/CHST 3V AP RIB/OBL/CHST L * * *Final Report* * * DATE OF EXAM: May 25 2025 10:20AM [id number] - XR RIB/CHST 3V AP RIB/OBL/CHST L / PROCEDURE REASON: multiple diagnoses * * * * Physician Interpretation * * * * PROCEDURE: Left RIBS with chest INDICATION: Fall, initial encounter Rib pain on left side Left flank pain .posterior distal left rib pain. Pt fell onto her left side 5 days ago. Sharp pain with inhale. TECHNIQUE: XR RIB/CHST 3V AP RIB/OBL/CHST L COMPARISON: Chest 02/05/2025 FINDINGS: Stable, enlarged cardiomediastinal silhouette. No consolidation or pneumothorax. Trace bilateral pleural effusions. The left ribs are intact without acute fracture, sclerotic or lytic lesion. Partially visualized left reverse shoulder arthroplasty. IMPRESSION: 1. No acute rib abnormality 2. Trace bilateral pleural effusions Gear Tooth Lapping Machine Operator: PSCB Transcribe Date/Time: May 30 2025 5:00P Dictated by : ALESHIA KEYES MD This examination was interpreted and the report reviewed and electronically signed by: ALESHIA KEYES MD on May 30 2025 5:01PM EST [id number] Normal [facility] CNPN Telephone (FAMPWS) DOLORES VILLA ([id number]) 1945 F Date Time Provider Department 04/03/25 MATTHEW SPENCER During your visit today, we recorded the following information about you: Luda Cuevas LPN 04/03/2025 4:41 PM Signed Pt calls to report Dr. Capellan prescribed her Farxiga. Pt reports she is down to 113 lbs. Pt is asking pcp since she is in [facility] and her goal is supposed to be [address] could lower her goal. Pt reports she would need a letter stating she is on medication that causes her to lose weight. Advised pt to call Dr. Capellan's office tomorrow and also let them know that she is continuing to lose weight on Farxiga. Please review and advise. DAVID Wright Liza D, MD 04/08/2025 11:27 PM Signed See if letter as pended for acceptable weight 115 +/- 5 pounds okay. Can change if needs to be listed differently for TOPS. Print letter if okay for her. Would not want her dropping much more weight. She should try to get more calories in even if not hungry in order to maintain weight. Tenisha Gamble LPN 04/09/2025 10:34 AM Signed LEFT MESSAGE FOR PATIENT TO CALL OFFICE. Krysta Gonzales RN 04/10/2025 2:29 PM Signed Pt returned call and given provider's message below with verbalized understanding. Pt agreeable to the letter, and states she will be right over and stop at the front desk coordinator to pick it up. Pt will ask front desk coordinator to print it off for her. Jennifer Singh LPN 04/10/2025 2:38 PM Signed Please review/print letter and notify Patient when ready. Matthew Davey LPN, MD 04/10/2025 4:42 PM Signed I assume was not printed for me to sign and printed now Tenisha Gamble LPN 04/11/2025 8:55 AM Signed Spoke with patient no she was unable to get letter yesterday.. Letter printed and signed. Letter ready for miner pick in main lobby. Patient to miner pick afternoon. Allergies As of Date: 04/03/2025 Noted Allergy Reaction ATIVAN (LORAZEPAM) 12/07/2005 14 - Other: See Comments Comments: family members had MS jori SANTACRUZNATATE 04/26/2015 8 - GI Upset HCTZ (HYDROCHLOROTHIAZIDE) 12/10/2008 5 - Intolerance Comments: headache SEASONAL ALLERGIES 12/05/2012 14 - Other: See Comments Comments: Receiving allergy shots. SULFA (SULFONAMIDE ANTIBIOTICS) 12/07/2005 16 - Unknown Date Reviewed: 02/04/2025 Reviewed by: Bia Christina MA - Fully Assessed Reason for Visit: weight loss [Other] Prescriptions as of 04/16/2025 - omeprazole (PRILOSEC) 20 mg capsule Take 1 capsule by mouth daily before breakfast. 1/2 hr before meal. - glipiZIDE (GLUCOTROL) 5 mg tablet Take 1 tablet by mouth two times a day before meals. - Lancets Test blood sugar(s) 1 time daily and as needed. Dx: Type 2 DM - Uncontrolled E11.9 Insulin: No - blood sugar diagnostic (BLOOD GLUCOSE TEST) test strip Test blood sugar(s) 1 time daily and as needed. Dx: Type 2 DM - Uncontrolled E11.9 Insulin: No - levothyroxine (SYNTHROID) 75 mcg tablet Take 1 tablet by mouth once daily. - FOLIC ACID ORAL Take by mouth. - ferrous sulfate (IRON) 325 mg (65 mg iron) tablet Take 325 mg by mouth. - nitroglycerin sublingual (NITROQUICK) 0.4 mg SL tablet Dissolve 1 tablet under the tongue every 5 minutes as needed. As directed for chest pain. IF NO RELIEF CALL 911 - isosorbide mononitrate ER (IMDUR) 60 mg 24 hr tablet Take 1 tablet by mouth once daily. - ELIQUIS 5 mg tab(s) Take 1 tablet by mouth two times a day. - rosuvastatin (CRESTOR) 40 mg tablet Take 1 tablet by mouth daily at bedtime. - lisinopril (ZESTRIL) 10 mg tablet Take 1 tablet by mouth once daily. - metoprolol tartrate, short acting, (LOPRESSOR) 50 mg tablet Take 1 tablet by mouth two times a day. - Blood Pressure Monitor (BLOOD PRESSURE KIT) 1 Each once daily as needed. - metFORMIN ER (GLUCOPHAGE XR) 500 mg 24 hr tablet Take 1 tablet by mouth two times a day with meals. As directed - cholecalciferol (VITAMIN D3) 50 mcg (2,000 unit) tablet Take 1 tablet by mouth once daily. - ACETAMINOPHEN/DIPHENHYD RAMINE (TYLENOL PM EXTRA STRENGTH ORAL) Take by mouth every 8 hours as needed. - THERAPEUTIC MULTIVITAMIN TAB Take by mouth once daily. Problem List As Of Date 04/03/2025 Noted Resolved Hypothyroidism [E03.9] Mixed hyperlipidemia [E78.2] 06/15/2006 CERVICALGIA [M54.2] 06/30/2007 08/08/2007 OTHER HAMMER TOE [M20.40] 07/23/2008 JOINT PAIN-SHLDER [M25.519] 09/17/2008 Migraine [G43.909] 08/23/2009 11/19/2020 GERD (Gastroesophageal Reflux Disease) [K21.9] 11/13/2009 Occlusion and stenosis of carotid artery withou*01/03/2010 CAD (coronary artery disease) [I25.10] 07/30/2010 Diverticulitis of Colon [K57.32] 08/22/2010 SUMMARY [V999.95] 01/29/2011 09/26/2021 Postsurgical percutaneous transluminal coronary*02/04/2011 Esophagitis [K20.90] 04/03/2011 09/26/2021 Dupuytren's contracture [M72.0] 11/01/2012 (more content not included)... Normal [facility] Cardiology Visit Reporton Cardiology Visit Report [facility] [address] [place], [place] [address] OFFICE VISIT Date of Service: 02/15/25 MR#: [id number] Acct: [id number] Name: DOLORES VILLA Julio Rep #: [id number] : 1945 Provider: Dr. Tae Capellan MD Age/Sex: 79/F [place] [facility] [place] Status: Signed HPI HPI History of Present Illness Details: This lady with history of permanent atrial fibrillation, coronary artery disease, diabetes mellitus, hypertension and mild LV systolic dysfunction is here for follow-up visit. Denies any chest pains. She has had a Lexiscan stress Myoview done which was negative for ischemia. Occasionally feels lightheaded. Intake Vital Signs 01/09/25 10:52 02/15/25 14:02 Height 5 ft 5 ft Weight: 121 lb 113 lb BMI 23.6 22.0 BP 122/72 H 96/58 L Blood Pressure Location Lt brachial Lt brachial Position Sitting Sitting Respiration 18 16 Pulse 100 81 Pulse Source NIBP Monitor Pulse Oximetry (%) 96 Oxygen Delivery Method room air Intake Visit Reasons: 4 WK FU Radiation Oncology Manager Required: No Accompanied by: Self Is patient in pain?: No Allergies hydrochlorothiazide Allergy (Verified 02/15/25 14:02) headache lorazepam (From Ativan) Allergy (Verified 02/15/25 14:02) Unknown NSAIDS (Non-Steroidal Anti-Inflamma Allergy (Verified 02/15/25 14:02) Swelling Sulfa (Sulfonamide Antibiotics) Allergy (Verified 02/15/25 14:02) Unknown Medications ???Medication ???Instructions ???Recorded ???Confirmed ???Type levothyroxine 75 mcg tablet 75 mcg PO DAILY 04/11/15 02/15/25 History multivitamin with folic acid 400 1 tab PO DAILY 04/11/15 02/15/25 H istory mcg tablet nitroglycerin 0.4 mg sublingual 0.4 mg sublingual Q5M PRN Chest 02/15/25 History tablet Pain glipizide 5 mg tablet 5 mg PO BID 07/27/19 02/15/25 Hist ory albuterol sulfate 90 mcg/actuation 1 - 2 puff inhalation Q4H PRN VT N 11/16/22 02/15/25 Rx aerosol inhaler (Ventolin HFA) Wheezing #1 ea omeprazole 20 mg capsule,delayed 20 mg PO DAILY 08/20/23 02/15/25 H istory release cholecalciferol (vitamin D3) 50 4,000 unit PO DAILY 12/22/2302/15 History mcg (2,000 unit) capsule acetaminophen 500 mg tablet 1,000 mg PO ONCE PRN 02/23/24 03/ History ferrous sulfate 325 mg (65 mg 325 mg PO DAILY 02/23/24 02/15/25 History iron) tablet folic acid 800 mcg tablet 0.8 mg PO DAILY 02/23/24 02/15/25 History metformin 500 mg tablet,extended 500 mg PO BID 02/23/24 02/15/25 Hi story release 24 hr rosuvastatin 40 mg tablet 40 mg PO QHS #90 tabs 11/10/24 Rx apixaban 5 mg tablet (Eliquis) 5 mg PO BID #180 tabs 11/13/24 Rx isosorbide mononitrate 60 mg See Rx Instructions .Route 4 02/15/25 Rx tablet,extended release 24 hr .COMPLEX #90 tabs metoprolol tartrate 100 mg tablet 100 mg PO BID #180 tabs 01/10/25 02/15/25 Rx Have you fallen in the past year?: No PFSH Medical History Longstanding persistent atrial fibrillation Preoperative cardiovascular examination Chest pain PAF (paroxysmal atrial fibrillation) New onset atrial fibrillation Angina pectoris Type 2 diabetes mellitus Presence of stent in coronary artery ( 01/30/11) Atherosclerotic heart disease of [place] coronary artery without angina pectoris Pure hypercholesterolemia Essential hypertension GERD (gastroesophageal reflux disease) Hypothyroidism Surgical History H/O shoulder replacement History of left heart catheterization (LHC) ( 03/24/22) History of repair of right rotator cuff ( 01/10/21) History of tonsillectomy History of lumpectomy of both breasts History of hemorrhoidectomy History of hysterectomy History of colectomy Status post trigger finger release Presence of coronary angioplasty implant and graft ( 01/30/11) Family History Mother Myocardial infarction Father Myocardial infarction Hypertension Brother CAD (coronary artery disease) CVA (cerebral vascular accident) Brother Myocardial infarction CAD (coronary artery disease) Sister Myocardial infarction CAD (coronary artery disease) Social History Smoking Status: Never smoker alcohol intake: never substance use type: does not use caffeine: Yes Type: coffee Number of servings: 3 ROS Const Const: Positive for fatigue and weakness ENT ENT: Positive for balance problems; Negative for dizziness Cardio Chest Pain: No Palpitations: Yes Edema: None Muscle aches with walking: None Resp Respiratory: Negative for SOB with activity, SOB at rest or SOB orthopnea SOB lying down GI GI: P (more content not included)... Normal [facility] [place] XR CHEST 2V FRONTAL/LATon XR CHEST 2V FRONTAL/LAT * * *Final Repor t* * * DATE OF EXAM: Feb 05 2025 12:26PM WOX [id number] - XR CHEST 2V FRONTAL/LAT / PROCEDURE REASON: Acute cough * * * * Physician Interpretation * * * * EXAMINATION: CHEST RADIOGRAPH (2 VIEW FRONTAL and LATERAL) CLINICAL HISTORY: Acute cough MQ: XC2_6 EXAM DATE/TIME: 02/05/2025 12:26 PM COMPARISON: 07/21/2023 RESULT: Lines, tubes, and devices: None. Lungs and pleura: No consolidation. No lung mass. No pleural effusion. No pneumothorax. Cardiomediastinal silhouette: Normal cardiomediastinal silhouette. Bones and soft tissues: Remote fracture of the midportion of the RIGHT clavicle again noted. This was present on the study from 2009. LEFT shoulder arthroplasty noted IMPRESSION: No acute radiographic abnormality. Gear Tooth Lapping Machine Operator: SAVANNA Transcribe Date/Time: Feb 05 2025 12:34P Dictated by : BRANDEN CUMMINGS DO This examination was interpreted and the report reviewed and electronically signed by: BRANDEN CUMMINGS DO on Feb 05 2025 12:36PM EST [id number] Normal [facility] XR Chest PA and Lateralon IMPRESSION: No acute radiographic abnormality. Gear Tooth Lapping Machine Operator: SAVANNA Transcribe Date/Time: Feb 05 2025 12:34P Dictated by : BRANDEN CUMMINGS DO This examination was interpreted and the report reviewed and electronically signed by: BRANDEN CUMMINGS DO on Feb 05 2025 12:36PM EST DIVISION OF RADIOLOGY * * *Final Report* * * DATE OF EXAM: Feb 05 2025 12:26PM WOX [id number] - XR CHEST 2V FRONTAL/LAT / PROCEDURE REASON: Acute cough * * * * Physician Interpretation * * * * EXAMINATION: CHEST RADIOGRAPH (2 VIEW FRONTAL & LATERAL) CLINICAL HISTORY: Acute cough MQ: XC2_6 EXAM DATE/TIME: 02/05/2025 12:26 PM COMPARISON: 07/21/2023 RESULT: Lines, tubes, and devices: None. Lungs and pleura: No consolidation. No lung mass. No pleural effusion. No pneumothorax. Cardiomediastinal silhouette: Normal cardiomediastinal silhouette. Bones and soft tissues: Remote fracture of the midportion of the RIGHT clavicle again noted. This was present on the study from 2009. LEFT shoulder arthroplasty noted DIVISION OF RADIOLOGY Provider, [facility] - 02/05/2025 * * *Final Report* * * DATE OF EXAM: Feb 05 2025 12:26PM WOX [id number] - XR CHEST 2V FRONTAL/LAT / PROCEDURE REASON: Acute cough * * * * Physician Interpretation * * * * EXAMINATION: CHEST RADIOGRAPH (2 VIEW FRONTAL & LATERAL) CLINICAL HISTORY: Acute cough MQ: XC2_6 EXAM DATE/TIME: 02/05/2025 12:26 PM COMPARISON: 07/21/2023 RESULT: Lines, tubes, and devices: None. Lungs and pleura: No consolidation. No lung mass. No pleural effusion. No pneumothorax. Cardiomediastinal silhouette: Normal cardiomediastinal silhouette. Bones and soft tissues: Remote fracture of the midportion of the RIGHT clavicle again noted. This was present on the study from 2009. LEFT shoulder arthroplasty noted IMPRESSION IMPRESSION: No acute radiographic abnormality. Gear Tooth Lapping Machine Operator: PSCB Transcribe Date/Time: Feb 05 2025 12:34P Dictated by : BRANDEN CUMMINGS DO This examination was interpreted and the report reviewed and electronically signed by: BRANDEN CUMMINGS DO on Feb 05 2025 12:36PM [facility] Radiology Study observation (narrative) Marilee alvarez [facility] XR Chest PA and LateralOrder ed By: Ccf Provider on 02-05-2025 [facility] CNOVon 02-04-2025 CNOV Office Visit (UCWSTR ) DOLORES VILLA ([id number]) 1945 F Date Time Provider Department 02/04/25 1:45 PM ROSAURA MONK [facility] During your visit today, we recorded the following information about you: Temperature Pulse Respiration Blood pressure 99.1 degrees 122/minute 20/minute 126/74 Weight 52.5 kg Rosaura Monk APRN.INFORMATION CODER 02/04/2025 1:58 PM Signed [facility] Subjective Dolores Villa is a 79 year old female. No chief complaint on file. Patient came in with complaints of having a productive cough sinus pressure and congestion. Patient says it has been going on about 3 weeks. Patient says is not getting any better. Patient does deny any shortness of breath. Patient denies any other symptoms. The history is provided by the patient. No speech language therapist was used. Review of Systems Constitutional: Negative. Objective There were no vitals taken for this visit. Physical Exam Constitutional: Appearance: Normal appearance. HENT: Right Ear: Tympanic membrane, ear canal and external ear normal. Left Ear: Tympanic membrane, ear canal and external ear normal. Mouth/Throat: Mouth: Mucous membranes are moist. Pharynx: Oropharynx is clear. No posterior oropharyngeal erythema. Eyes: Pupils: Pupils are equal, round, and reactive to light. Cardiovascular: Rate and Rhythm: Normal rate and regular rhythm. Heart sounds: Normal heart sounds. Pulmonary: Effort: Pulmonary effort is normal. Breath sounds: Normal breath sounds. Neurological: Mental Status: She is alert. PAST MEDICAL HISTORY Diagnosis Date Abdominal pain, left lower quadrant Abdominal pain, unspecified site 08/22/2010 Arthritis 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 09/20/2018 Added automatically from request for surgery [id number] Barretts esophagus EGD 2010 and 08/25/13 Bronchitis 07/30/2010 Pt was having cough with chest pain . -Was started on nebulisation and antibiotic at [facility]. -Symtoms better now. CAD (coronary artery disease) s/p PCI/CHRISTELLE to LAD with 2.75x15 Xience dilated to 3.4 Complication of anesthesia nausea, vomiting Controlled type 2 diabetes mellitus without complication, without long-term current use of insulin ([facility]) 10/14/2016 Contusion of shoulder region Diverticulitis of sigmoid colon 09/17/2010 Dupuytren's contracture 11/01/2012 left worse than right Enlargement of lymph nodes Esophageal reflux Esophagitis, unspecified 04/03/2011 Generalized osteoarthrosis, unspecified site History of colonic polyps 09/20/2018 Added automatically from request for surgery [id number] Hypertension Kidney disease Lichen sclerosus Migraine 08/23/2009 Migraine without aura, without mention of intractable migraine without mention of status migrainosus Pain in joint, shoulder region PONV (postoperative nausea and vomiting) Pure hypercholesterolemia Sciatica 10/09/2010 Sebaceous cyst 05/01/2015 Subacute thyroiditis Thoracic aortic aneurysm without rupture (HCC) 08/26/2019 Trigger thumb of left hand 08/12/2017 Added automatically from request for surgery [id number] Surgery effective Unspecified hypothyroidism PAST SURGICAL HISTORY Procedure Laterality Date BIOPSY BREAST OPEN INCISIONAL 75 Bx of breast, incisional- bilateral CATARACT EXTRACTION HX 2013 COLON SURGERY HX COLONOSCOPY FLX DX W/COLLJ SPEC WHEN PFRMD 03/2004 Colonoscopy COLONOSCOPY FLX DX W/COLLJ SPEC WHEN PFRMD 10/12/2018 Colonoscopy EGD TRANSORAL BIOPSY SINGLE/MULTIPLE 04/03/11 ESOPHAGOGASTRODUODENOSC OPY TRANSORAL DIAGNOSTIC 10/12/2018 EGD EYE SURGERY HX Bilateral cataract surgery/ INCISE FINGER TENDON SHEATH Right 08/22/2018 Right ring trigger finger release INCISE FINGER TENDON SHEATH Left 03/16/2019 Left middle trigger finger release INCISE FINGER TENDON SHEATH Right 01/05/2020 Right middle trigger finger release INCISE FINGER TENDON SHEATH Right 09/05/2020 Right 5th trigger finger release LAMINECTOMY W/O FFD 1/2 VERT SEG LUMBAR 07/18/2018 revision of L4-L5 LAMINECTOMY,LUMBAR October 04, 2015 Surgical Procedure/Date: lumbar laminectomy L4-5/October 04, 2015 LUMPECTOMY/RADIOTHERAPY DIAG MAMM/A10 1975 right NEUROPLASTY AND/TRANSPOS MEDIAN NRV CARPAL TUNNE Left 09/14/2019 Left Carpal tunnel relese PAST SURGICAL HISTORY OF 2006 left 2nd finger cyst removed PAST SURGICAL HISTORY OF cyst from face PAST SURGICAL HISTORY OF 08/22/2008 left 5th toe repair hammertoe 4th and 5th PAST SURGICAL HISTORY OF 01/30/11 s/p PCI/CHRISTELLE to LAD with 2.75x15 Xience dilated to 3.4 PAST SURGICAL HISTORY OF 2010 partial colectomy 8 in, for diverticulitis PAST SURGICAL HISTORY OF remote right foot infection, ingrwn toenail PAST SURGICAL HISTORY OF 10/06/2013 left hand 4th digit trigger release REM LESIO TRUNK,ARM,LEG 1.1 -2.0CM 05/30/15 Exc. upper mid back David cyst TONSILLECTOMY PRIMARY/SECONDARY (more content not included)... Normal [facility] Cardiovascular stress test r eportOrdered By: Tae Capellan on 01-25-2025 Study report [facility] [address] [place] [address] MR#: [id number] Acct: [id number] Name: DOLORES VILLA Rep #: [id number] : 1945 79 From: Tae Capellan MD Primary Care: Dr. Matthew Spencer MD Sta tus: REG CLI Referring Dr: Tae Capellan MD Sex: F C Stress Test Report Date: 01/24/2025 Procedure: Pharmacologic stress nuclear imaging study Indications: Coronary artery disease Consent: Per the patient Procedure: The patient underwent pharmacologic (Regadenoson 0.4mg ) evaluation with a peak heart rate of 116 beats per minute (82%predicted maximal heart rate) and a peak blood pressure of 124/90 mmHg. The baseline ECG demonstrated sinus rhythm with generalized T wave inversions. The peak pharmacologic ECG was nondiagnostic secondary to baseline abnormalities. There were no cardiac dysrhythmias pretest, during pharmacologic infusion, or recovery. There was no complaint of chest discomfort during pharmacologic infusion or recovery. The patient was injected with 10.4 millicuries of technetium 99m Cardiolite and subsequently rest SPECT Cardiolite nuclear imaging was obtained in the horizontal long, vertical long, and short axis views. The patient underwent pharmacologic (Regadenoson) evaluation. The patient was injected with 31.8 millicuries of technetium 99m Cardiolite and subsequently stress SPECT Cardiolite nuclear imaging was obtained in the horizontal long, vertical long, and short axis views. A gated Cardiolite study at peak stress was obtained. The examination was stopped secondary to completion of protocol. Rest and stress SPECT Cardiolite nuclear imaging status post realignment, normalization, and attenuation correction demonstrate no fixed or reversible perfusion defects. There is end systolic thickening and brightening. The gatedCardiolite study demonstrates myocardial thickening and inward wall motion. Thereported LVEF is 57%. Impression: 1. Pharmacologic (Regadenoson) evaluation 2. Peak pharmacologic ECG with no diagnostic changes secondary to baseline abnormalities. 3. There were no cardiac dysrhythmias pretest, during pharmacologic infusion, or recovery. 5. Rest and stress SPECT Cardiolite nuclear imaging demonstrate relative uniform tracer uptake and myocardial perfusion appearing within normal limits. 6. The gated Cardiolite study reports an LVEF of 57%. This note was generated with [employer] software. It may contain incorrectwords, spelling, and punctuation that were not noted in checking the note beforesigning. 01/25/25 1224 Date _ Tae Capellan MD CC: Dr. Tae Capellan MD; Dr. Matthew Spencer MD ~ Date Dictated: 01/25/25 1216 Date Transcribed: 01/25/251215 Gear Tooth Lapping Machine Operator: CITLALY Davalos [facility] Work Phone: Stress Reporton 01-25-2025 Stress Report [facility] Cardi[facility] Services [address] [place] [address] MR#: [id number] Acct: [id number] Name: DOLORES VILLA Rep #: [id number] : 1945 79 From: Tae Capellan MD Primary Care: Dr. Matthew Spencer MD Status: REG I Referring Dr: Tae Capellan MD Sex: F C Stress Test Report Date: 01/24/2025 Procedure: Pharmacologic stress nuclear imaging study Indications: Coronary artery disease Consent: Per the patient Procedure: The patient underwent pharmacologic (Regadenoson 0.4mg ) evaluation with a peak heart rate of 116 beats per minute (82%predicted maximal heart rate) and a peak blood pressure of 124/90 mmHg. The baseline ECG demonstrated sinus rhythm with generalized T wave inversions. The peak pharmacologic ECG was nondiagnostic secondary to baseline abnormalities. There were no cardiac dysrhythmias pretest, during pharmacologic infusion, or recovery. There was no complaint of chest discomfort during pharmacologic infusion or recovery. The patient was injected with 10.4 millicuries of technetium 99m Cardiolite and subsequently rest SPECT Cardiolite nuclear imaging was obtained in the horizontal long, vertical long, and short axis views. The patient underwent pharmacologic (Regadenoson) evaluation. The patient was injected with 31.8 millicuries of technetium 99m Cardiolite and subsequently stress SPECT Cardiolite nuclear imaging was obtained in the horizontal long, vertical long, and short axis views. A gated Cardiolite study at peak stress was obtained. The examination was stopped secondary to completion of protocol. Rest and stress SPECT Cardiolite nuclear imaging status post realignment, normalization, and attenuation correction demonstrate no fixed or reversible perfusion defects. There is end systolic thickening and brightening. The gated Cardiolite study demonstrates myocardial thickening and inward wall motion. The reported LVEF is 57%. Impression: 1. Pharmacologic (Regadenoson) evaluation 2. Peak pharmacologic ECG with no diagnostic changes secondary to baseline abnormalities. 3. There were no cardiac dysrhythmias pretest, during pharmacologic infusion, or recovery. 5. Rest and stress SPECT Cardiolite nuclear imaging demonstrate relative uniform tracer uptake and myocardial perfusion appearing within normal limits. 6. The gated Cardiolite study reports an LVEF of 57%. This note was generated with [employer] software. It may contain incorrect words, spelling, and punctuation that were not noted in checking the note before signing. 01/25/25 1224 Date Tae Capellan MD CC: Dr. Tae Capellan MD; Dr. Matthew Spencer MD Date Dictated: 01/25/25 1216 Date Transcribed: 01/25/251215 Gear Tooth Lapping Machine Operator: CITLALY Signed Normal [facility] Basic metabolic 2000 panelon 01-19-2025 Anion gap [Moles/Vol] 7 mmol/L Low 8-15 [facility] Comment on above: Order Comment: Speci men Type: BLOOD SPECIMEN Ordering Facility: [facility] Address: [facility] [place] [address] Performed By: #### 2 4321-2 #### [facility] CLIA [id number] [address] [id number] [place] Calcium [Mass/Vol] 10.2 mg/dL Normal 8.5-10.2 [facility] Comment on above: Order Comment: Speci men Type: BLOOD SPECIMEN Ordering Facility: [facility] Address: [address] [place], [place] [address] [place] [address] Performed By: #### 2 4321-2 #### [facility] CLIA [id number] [address] [id number] [place] Chloride [Moles/Vol] 104 mmol/L Normal 98-107 [facility] Comment on above: Order Comment: Speci men Type: BLOOD SPECIMEN Ordering Facility: [facility] Address: [address] [place], [place] [address] [place] [address] Performed By: #### 2 4321-2 #### [facility] CLIA [id number] [address] [place] [address] [place] CO2 [Moles/Vol] 29 mmol/L Normal 22-30 [facility] Comment on above: Order Comment: Speci men Type: BLOOD SPECIMEN Ordering Facility: [facility] Address: [facility] [address] [place] [address] Performed By: #### 2 4321-2 #### [facility] CLIA [id number] [address] [id number] [place] Creatinine [Mass/Vol] 1.35 mg/dL High 0.58-0.96 [facility] Comment on above: Order Comment: Speci men Type: BLOOD SPECIMEN Ordering Facility: [facility] Address: [address] [place], [place] [address] [place] [address] Performed By: #### 2 4321-2 #### [facility] CLIA [id number] [address] [id number] [place] Creatinine and Glomerular filtration rate.predicted panel (S/P/Bld) 40 mL/min/1.73m??? Low >=60 [facility] Comment on above: Order Comment: Julius mayfield Type: BLOOD SPECIMEN Ordering Facility: [facility] Address: [address] [place] [address] Result Comment: Candace mated Glomerular Filtration Rate (eGFR) is calculated using the 2020 CKD-EPI creatinine equation. This equation utilizes serum creatinine, sex, and age as parameters. The creatinine assay has traceable calibration to isotope dilution-mass spectrometry. Refer to KDIGO guidelines for clinical interpretation. In patients with unstable renal function, e.g. those with acute kidney injury, the eGFR may not accurately reflect actual GFR. Performed By: #### 2 4321-2 #### [facility] CLIA [id number] [address] [place] [address] [place] Glucose [Mass/Vol] 126 mg/dL High 74-99 [facility] Comment on above: Order Comment: Julius mayfield Type: BLOOD SPECIMEN Ordering Facility: [facility] [address] [place] [address] Result Comment: The [place] Diabetes Association (ADA) provides guidance for cutoff values for fasting glucose and random glucose. The ADA defines fasting as no caloric intake for at least 8 hours. Fasting plasma glucose results between 100 to 125 mg/dL indicate increased risk for diabetes (prediabetes). Fasting plasma glucose results greater than or equal to 126 mg/dL meet the criteria for diagnosis of diabetes. In the absence of unequivocal hyperglycemia, results should be confirmed by repeat testing. In a patient with classic symptoms of hyperglycemia or hyperglycemic crisis, random plasma glucose results greater than or equal to 200 mg/dL meet the criteria for diagnosis of diabetes. Reference: Standards of Medical Care in Diabetes 2016, [place] Diabetes Association. Diabetes Care. 2016.39(Suppl 1). Performed By: #### 2 4321-2 #### [facility] CLIA [id number] [address] [place], [place] [id number] [place] Potassium [Moles/Vol] 4.8 mmol/L Normal 3.7-5.1 [facility] Comment on above: Order Comment: Speci men Type: BLOOD SPECIMEN Ordering Facility: [facility] Address: [address] [place], [place] [address] [id number] Performed By: #### 2 4321-2 #### [facility] CLIA [id number] [address] [place] [address] [place] Sodium [Moles/Vol] 140 mmol/L Normal 136-144 [facility] Comment on above: Order Comment: Speci men Type: BLOOD SPECIMEN Ordering Facility: [facility] Address: [address] [place], [place] [address] [place] [address] Performed By: #### 2 4321-2 #### [facility] CLIA [id number] [address] [place] [address] [place] Urea nitrogen [Mass/Vol] 19 mg/dL Normal 7-21 [facility] Comment on above: Order Comment: Julius men Type: BLOOD SPECIMEN Ordering Facility: [facility] Address: [facility] [place] [address] Performed By: #### 2 4321-2 #### [facility] CLIA [id number] [address] [place] [address] [place] CNPNon 01-09-2025 [facility]OLOR[facility] ([id number]) 1945 F Date Time Provider Department 01/09/25 [facility] During your visit today, we recorded the following information about you: Luda Cuevas LPN 01/09/2025 8:46 AM Signed Pt calls to report she went to ER on Wednesday01/07/25 for heart. Pt reports she has a f/u today with her retail link analyst and would like last lab results from 12/18/24 faxed to retail link analyst. Lab results faxed as requested to [phone]. Luda Cuevas LPN Allergies As of Date: 01/09/2025 Noted Allergy Reaction ATIVAN (LORAZEPAM) 12/07/2005 14 - Other: See Comments Comments: family members had MS change BENZONATATE 04/26/2015 8 - GI Upset HCTZ (HYDROCHLOROTHIAZIDE) 12/10/2008 5 - Intolerance Comments: headache SEASONAL ALLERGIES 12/05/2012 14 - Other: See Comments Comments: Receiving allergy shots. SULFA (SULFONAMIDE ANTIBIOTICS) 12/07/2005 16 - Unknown Date Reviewed: 12/25/2024 Reviewed by: Valentina Lechuga LPN - Fully Assessed Reason for Visit: Results, Lab [1201] Prescriptions as of 01/09/2025 - levothyroxine (SYNTHROID) 75 mcg tablet Take 1 tablet by mouth once daily. - FOLIC ACID ORAL Take by mouth. - ferrous sulfate (IRON) 325 mg (65 mg iron) tablet Take 325 mg by mouth. - nitroglycerin sublingual (NITROQUICK) 0.4 mg SL tablet Dissolve 1 tablet under the tongue every 5 minutes as needed. As directed for chest pain. IF NO RELIEF CALL 911 - isosorbide mononitrate ER (IMDUR) 60 mg 24 hr tablet Take 1 tablet by mouth once daily. - ELIQUIS 5 mg tab(s) Take 1 tablet by mouth two times a day. - amoxicillin (AMOXIL) 500 mg capsule Take by mouth. Take four tablets by mouth one hour prior to dental procedure - rosuvastatin (CRESTOR) 40 mg tablet Take 1 tablet by mouth daily at bedtime. - lisinopril (ZESTRIL) 10 mg tablet Take 1 tablet by mouth once daily. - glipiZIDE (GLUCOTROL) 5 mg tablet Take 1 tablet (5 mg) by mouth two times a day before meals. - metoprolol tartrate, short acting, (LOPRESSOR) 50 mg tablet Take 1 tablet by mouth two times a day. - blood sugar diagnostic (BLOOD GLUCOSE TEST) test strip Test blood sugar(s) 1 time daily and as needed. Dx: Type 2 DM - Uncontrolled E11.9 Insulin: No - Blood Pressure Monitor (BLOOD PRESSURE KIT) 1 Each once daily as needed. - metFORMIN ER (GLUCOPHAGE XR) 500 mg 24 hr tablet Take 1 tablet by mouth two times a day with meals. As directed - omeprazole (PRILOSEC) 20 mg capsule Take 1 capsule by mouth daily before breakfast. 1/2 hr before meal. - cholecalciferol (VITAMIN D3) 50 mcg (2,000 unit) tablet Take 1 tablet by mouth once daily. - Lancets lancets Test blood sugar(s) 1 time daily and as needed. Dx: Type 2 DM - Uncontrolled E11.9 Insulin: No - ACETAMINOPHEN/DIPHENHYD RAMINE (TYLENOL PM EXTRA STRENGTH ORAL) Take by mouth every 8 hours as needed. - THERAPEUTIC MULTIVITAMIN TAB Take by mouth once daily. Problem List As Of Date 01/09/2025 Noted Resolved Hypothyroidism [E03.9] Mixed hyperlipidemia [E78.2] 06/15/2006 CERVICALGIA [M54.2] 06/30/2007 08/08/2007 OTHER HAMMER TOE [M20.40] 07/23/2008 JOINT PAIN-SHLDER [M25.519] 09/17/2008 Migraine [G43.909] 08/23/2009 11/19/2020 GERD (Gastroesophageal Reflux Disease) [K21.9] 11/13/2009 Occlusion and stenosis of carotid artery withou*01/03/2010 CAD (coronary artery disease) [I25.10] 07/30/2010 Diverticulitis of Colon [K57.32] 08/22/2010 SUMMARY [V999.95] 01/29/2011 09/26/2021 Postsurgical percutaneous transluminal coronary*02/04/2011 Esophagitis [K20.90] 04/03/2011 09/26/2021 Dupuytren's contracture [M72.0] 11/01/2012 Trigger ring finger of left hand [M65.342] 12/19/2012 Sacroiliitis, not elsewhere classified (HCC) [M*02/07/2013 05/17/2020 Thoracic and lumbosacral neuritis [M54.14, M54.*02/07/2013 History of lumbar laminectomy [Z98.890] 10/21/2015 Bulge of lumbar disc without myelopathy [M51.36*10/21/2015 Type 2 diabetes mellitus with stage 3a chronic *10/14/2016 Stage 3a chronic kidney disease (HCC) [N18.31] 10/14/2016 Trigger thumb of left hand [M65.312] 08/12/2017 11/26/2017 Trigger finger, right ring finger [M65.341] 08/08/2018 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 [K22.70] 09/20/2018 Chronic pain of left knee--since contusion [M25*10/06/2018 Thoracic aortic aneurysm without rupture (HCC) *08/26/2019 Hypertensive kidney disease with stage 3a chron*09/26/2021 Angina pectoris (HCC) [I20.9] 02/12/2023 07/18/2023 Essential (primary) hypertension [I10] 03/02/2022 History of left heart catheterization (LHC) [Z9*02/12/2023 PAF (paroxysmal atrial fibrillation) (HCC) [I48*02/12/2023 Presence of stent in coronary artery [Z95.5] 01/27/2011 Pure hypercholesterolemia [E78.00] 03/02/2022 Encounter Status:Closed by LUDA CUEVAS on 01/09/25 [facility] Cardiology Visit Reporton Cardiology Visit Report [facility] [address] [place] [address] OFFICE VISIT Date of Service: 01/09/25 MR#: [id number] Acct: [id number] Name: DOLORES VILLA Rep #: [id number] : 1945 Provider: Dr. Tae Capellan MD Age/Sex: 79/F [place] [facility] [place] Status: Signed HPI HPI History of Present Illness Details: This lady with history of coronary artery disease status post CHRISTELLE to the LAD, chronic atrial fibrillation, hypertension, diabetes mellitus, tricuspid valve regurgitation and dyslipidemia has had a visit to the emergency room couple of days ago with epigastric discomfort. According to the patient, it was different than her usual anginal pain which she describes as interscapular pain. Per patient, she took nitroglycerin sublingually, this reduced the intensity of the discomfort but did not completely resolve it. By the time she presented to the emergency room, her symptoms had completely resolved. She denies any recurrence of her symptoms since. Denies any palpitations. No shortness of breath. Denies orthopnea or PND. No ankle edema. Intake Vital Signs 08/23/24 08:19 01/07/25 11:58 01/09/25 10:52 Height 5 ft 5 ft 5 ft Weight: 121 lb BMI 23.6 BP 122/72 H Blood Pressure Location Lt brachial Position Sitting Respiration 18 Pulse 100 Pulse Source NIBP Intake Visit Reasons: 6 M FU Radiation Oncology Manager Required: No Accompanied by: Self Is patient in pain?: No Allergies hydrochlorothiazide Allergy (Verified 01/09/25 10:59) headache lorazepam (From Ativan) Allergy (Verified 01/09/25 10:59) Unknown NSAIDS (Non-Steroidal Anti-Inflamma Allergy (Verified 01/09/25 10:59) Swelling Sulfa (Sulfonamide Antibiotics) Allergy (Verified 01/09/25 10:59) Unknown Medications ???Medication ???Instructions ???Recorded ???Confirmed ???Type levothyroxine 75 mcg tablet 75 mcg PO DAILY 04/11/15 01/08/25 History multivitamin with folic acid 400 1 tab PO DAILY 04/11/15 01/08/25 H istory mcg tablet nitroglycerin 0.4 mg sublingual 0.4 mg sublingual Q5M PRN Chest 01/08/25 History tablet Pain aspirin 81 mg tablet,delayed 81 mg PO DAILY 07/26/19 01/08/25 H istory release (Adult Low Dose Aspirin) glipizide 5 mg tablet 5 mg PO BID 07/27/19 01/08/25 Hist ory albuterol sulfate 90 mcg/actuation 1 - 2 puff inhalation Q4H PRN VT N 11/16/22 01/08/25 Rx aerosol inhaler (Ventolin HFA) Wheezing #1 ea omeprazole 20 mg capsule,delayed 20 mg PO DAILY 08/20/23 01/08/25 H istory release cholecalciferol (vitamin D3) 50 4,000 unit PO DAILY 12/22/2301/08 History mcg (2,000 unit) capsule furosemide 20 mg tablet (Lasix) 20 mg PO DAILY PRN 01/19/24 History acetaminophen 500 mg tablet 1,000 mg PO ONCE PRN 02/23/2412/30 History ferrous sulfate 325 mg (65 mg 325 mg PO DAILY 02/23/24 01/08/25 History iron) tablet folic acid 800 mcg tablet 0.8 mg PO DAILY 02/23/24 01/08/25 History metformin 500 mg tablet,extended 500 mg PO BID 02/23/24 01/08/25 Hi story release 24 hr metoprolol tartrate 25 mg tablet 25 mg PO BID 02/23/24 01/08/25 His tory lisinopril 10 mg tablet 10 mg PO DAILY #90 tabs 11/10/24 0 01/08/25 Rx rosuvastatin 40 mg tablet 40 mg PO QHS #90 tabs 11/10/2409/22 Rx apixaban 5 mg tablet (Eliquis) 5 mg PO BID #180 tabs 11/13/2409/22 Rx isosorbide mononitrate 60 mg See Rx Instructions .Route 4 01/08/25 Rx tablet,extended release 24 hr .COMPLEX #90 tabs Ejection fraction %: 45 Have you fallen in the past year?: Yes (no major injury) [facility] Medical History Angina pectoris Atherosclerotic heart disease of [place] coronary artery without angina pectoris Chest pain Essential hypertension GERD (gastroesophageal reflux disease) Hypothyroidism Longstanding persistent atrial fibrillation New onset atrial fibrillation PAF (paroxysmal atrial fibrillation) Preoperative cardiovascular examination Presence of stent in coronary artery ( 01/30/11) Pure hypercholesterolemia Type 2 diabetes mellitus Surgical History H/O shoulder replacement History of colectomy History of hemorrhoidectomy History of hysterectomy History of left heart catheterization (LHC) ( 03/24/22) History of lumpectomy of both breasts History of repair of right rotator cuff ( 01/10/21) History of tonsillectomy Presence of coronary angioplasty implant and graft ( 01/30/11) Status post trigger finger release Family History Mother Myocardial infarction Father Myocardial infarction Hypertension Brother CAD (coronary artery disease) CVA (cerebral vascular accident) Brother Efren (more content not included)... Normal [facility] CBC W/Diff, Automatedon 12-30 PATH REV Reviewed Normal [facility] Comment on above: Result Comment: Leuk ocytosis. Macrocytic anemia. Clinical correlation necessary. Jaskaran Julio M.D. 01/08/25 AMENDED REPORT 01/08/25 1329 PATH REV previously reported as: Naomy serrato Performed By: #### L 500.2500, L501.5425, L100.0100 #### [facility] Laboratory [address] [facility] [place], [address] 12 Lead EKGon 01-07-2025 12 Lead EKG [facility] Cardiovascular Services [address] [place] [address] 12 Lead EKG 01/07/25 1204 MR#: [id number] Acct: [id number] Name: DOLORES VILLA Rep #: [id number] : 1945 79 From: Julio Leonard MD Attending Dr: Status: DEP ER Ordering Dr: Baldemar Mooney MD Date: 01/07/25 Location: ED Sex: F C Admitted: Test Reason : CP Blood Pressure : */* mmHG Vent. Rate : 83 BPM Atrial Rate : * BPM P-R Int : * ms QRS Dur : 72 ms QT Int : 398 ms P-R-T Axes : * 94 -73 degrees QTcB Int : 467 ms Atrial fibrillation Rightward axis Low voltage QRS T wave abnormality, consider inferior ischemia Abnormal ECG Confirmed by JULIO LEONARD MD ([id number]), health editor COLLETTE PAL ([id number]) on 01/08/2025 10:50:40 AM Referred By: BRYSON/ROSA Confirmed By: JULIO LEONARD MD 01/08/25 1050 Date Julio Leonard MD CC: Dr. Baldemar Mooney MD; Dr. Matthew Spencer MD Signed Normal [facility] Absolute neutrophil countOrd ered By: Baldemar Mooney on 01-07-2025 Neutrophils (Bld) [#/Vol] 9.3 10*3/uL High 2.0-7.7 [facility] Basic Metabolic Profile (BMP )on 01-07-2025 BUN/CRE 9.5 RATIO Low 10-20 [facility] Comment on above: Performed By: #### L 500.2500, L501.5425, L100.0100 #### [facility] Laboratory [address] [place], [address] CA,Total 9.2 mg/dL Normal 8.5-10.1 [facility] Comment on above: Performed By: #### L 500.2500, L501.5425, L100.0100 #### [facility] Laboratory [address] [place], [address] Chloride [Moles/Vol] 106 mmol/L Normal 98-107 [facility] Comment on above: Performed By: #### L 500.2500, L501.5425, L100.0100 #### [facility] Laboratory [address] [place], [address] CO2 [Moles/Vol] 26.0 mmol/L Normal 21.0-32.0 [facility] Comment on above: Performed By: #### L 500.2500, L501.5425, L100.0100 #### [facility] Laboratory [address] [place], [address] Creatinine [Mass/Vol] 1.48 mg/dL High 0.55-1.02 [facility] Comment on above: Result Comment: The validity of the calculated GFR GFRAA in patients over 70 years has not been determined. Clinical correlation is essential. Performed By: #### L 500.2500, L501.5425, L100.0100 #### [facility] Laboratory [address] [place], [address] ECRCL 24.79 ml/min Normal [facility] Comment on above: Performed By: #### L 500.2500, L501.5425, L100.0100 #### [facility] Laboratory [address] [place], [address] EST GFR - AA 44 mL/min Low >60 [facility] Comment on above: Result Comment: Afri can [place] GFR Calc Performed By: #### L 500.2500, L501.5425, L100.0100 #### [facility] Laboratory [address] [place], [address] GAP 7 Normal 5-15 [facility] Comment on above: Performed By: #### L 500.2500, L501.5425, L100.0100 #### [facility] Laboratory [address] [place], [address] GFR/1.73 sq M.predicted among non-blacks MDRD (S/P/Bld) [Vol rate/Area] 36 mL/min/{1.73_m2} Low >60 [facility] Comment on above: Result Comment: Non- GFR Calc Performed By: #### L 500.2500, L501.5425, L100.0100 #### [facility] Laboratory [address] [place], [address] Glucose [Mass/Vol] 148 mg/dL High 74-106 [facility] Comment on above: Result Comment: Fast ing Glucose result greater than or equal to 126 mg/dL suggests DIABETES MELLITUS per A.D.A. criteria. Performed By: #### L 500.2500, L501.5425, L100.0100 #### [facility] Laboratory [address] [place], [address] Potassium [Moles/Vol] 3.8 mmol/L Normal 3.5-5.1 [facility] Comment on above: Performed By: #### L 500.2500, L501.5425, L100.0100 #### [facility] Laboratory [address] [place], [address] Sodium [Moles/Vol] 138 mmol/L Normal 136-145 [facility] Comment on above: Performed By: #### L 500.2500, L501.5425, L100.0100 #### [facility] Laboratory [address] [place], [address] Urea nitrogen [Mass/Vol] 14 mg/dL Normal 7-18 [facility] Comment on above: Performed By: #### L 500.2500, L501.5425, L100.0100 #### [facility] Laboratory [address] [place], [address] Basophil percentageOrdered B y: Baldemar Mooney on 01-07-2025 Basophils/100 WBC (Bld) 0.7 % 0-1 [facility] Blood urea nitrogen (BUN)/cr eatinine ratioOrdered By: Baldemar Mooney on 01-07-2025 Urea nitrogen/Creatinine [Mass ratio] 9.5 mg/mg Low 10-20 [facility] Carbon dioxide measurementOr dered By: Baldemar Mooney on 01-07-2025 CO2 [Moles/Vol] 26.0 mmol/L 21.0-32.0 [facility] Chest 1 View (Portable)on Chest 1 View (Portable) [facility] Imaging Services [address], [place] [address] Chest 1 View (Portable) MR#: [id number] Acct: [id number] Name: DOLORES VILLA Rep #: [id number] : 1945 F 79 From: Getachew Heller MD PCP: Dr. Matthew Spencer MD Status: REG ER Study: Chest 1 View (Portable) Date of Exam: 01/07/25 Exam# [id number] Ordering Dr: Baldemar Mooney MD PROCEDURE: CHEST 1 VIEW (PORTABLE) REASON FOR EXAM: pain TECHNIQUE: Frontal view of the chest. COMPARISON: Reviewed. FINDINGS: The cardiac and mediastinal contours are normal. The lungs are clear. RAD/Chest 1 View (Portable) IMPRESSION: NEGATIVE SINGLE VIEW OF THE CHEST. Reading Location: [place] CC: Dr. Baldemar Mooney MD; Dr. 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 Matthew Spencer MD Status:REG ER Location: ED HPI History of Present Illness Chief Complaint: Chest Pain Informant: patient Onset/Context/Timing Onset: Today and Hours Activity at onset: gradual Timing: Continuous Quality: Positive for Aching and Pain Location: Substernal Current Severity: Gone Maximum Severity: Mild Worsened By: Nothing Relieved By: Nothing Associated Symptoms: Positive for Nausea, Diaphoresis and Dyspnea Narrative Narrative: 79-year-old female history of CAD with 1 stent, A-fib on Eliquis and diabetes. States that she was at son's culture today around 9:45 AM developed midsternal chest pain no radiation. Lasted about an hour and a half. She gave herself 2 sublingual nitro and the pain resolved. Currently she is symptom-free. She said she has a mild shortness of breath nausea and diaphoresis with the discomfort. She has had this before. Denies any significant exertional chest pain recently. Last heart cath was about 3 years ago or so she believes. Denies any recent illness. Prior Similar Symptoms: Yes Recent Illness/Hospitalization : No CVD Risk Factors: Positive for Hypertension and Diabetes; Negative for Smoking PE Risk Factors: Negative for Recent Travel/Surgery, Recent Immobilization, Prior DVT or PE, Cancer or OCP + Smoking + >/=35 TAD Risk Factors: Negative for Marfan's Syndrome [facility] Medical History Longstanding persistent atrial fibrillation Preoperative cardiovascular examination Chest pain PAF (paroxysmal atrial fibrillation) New onset atrial fibrillation Angina pectoris Type 2 diabetes mellitus Presence of stent in coronary artery ( 01/30/11) Atherosclerotic heart disease of [place] coronary artery without angina pectoris Pure hypercholesterolemia Essential hypertension GERD (gastroesophageal reflux disease) Hypothyroidism Home Medications ???Medication ???Instructions ???Recorded ???Last Taken ???Type levothyroxine 75 mcg tablet 75 mcg PO DAILY 04/11/15 03/24/22 History multivitamin with folic acid 400 1 tab PO DAILY 04/11/15 04/10/15 H istory mcg tablet nitroglycerin 0.4 mg sublingual 0.4 mg sublingual Q5M PRN Chest Unknown History tablet Pain aspirin 81 mg tablet,delayed 81 mg PO DAILY 07/26/19 03/24/22 H istory release (Adult Low Dose Aspirin) glipizide 5 mg tablet 5 mg PO BID 07/27/19 03/23/22 Hist ory albuterol sulfate 90 mcg/actuation 1 - 2 puff inhalation Q4H PRN VT N 11/16/22 Unknown Rx aerosol inhaler (Ventolin HFA) Wheezing #1 ea omeprazole 20 mg capsule,delayed 20 mg PO DAILY 08/20/23 Unknown Hi story release cholecalciferol (vitamin D3) 50 4,000 unit PO DAILY 12/22/23 Unkno wn History mcg (2,000 unit) capsule furosemide 20 mg tablet (Lasix) 20 mg PO DAILY PRN 01/19/24 Unknow n History acetaminophen 500 mg tablet 1,000 mg PO ONCE PRN 02/23/24 Unkn own History ferrous sulfate 325 mg (65 mg 325 mg PO DAILY 02/23/24 Unknown H istory iron) tablet folic acid 800 mcg tablet 0.8 mg PO DAILY 02/23/24 Unknown H istory metformin 500 mg tablet,extended 500 mg PO BID 02/23/24 Unknown His tory release 24 hr metoprolol tartrate 25 mg tablet 25 mg PO BID 02/23/24 Unknown Hist ory lisinopril 10 mg tablet 10 mg PO DAILY #90 tabs 11/10/24 U nknown Rx rosuvastatin 40 mg tablet 40 mg PO QHS #90 tabs 11/10/24 Unk nown Rx apixaban 5 mg tablet (Eliquis) 5 mg PO BID #180 tabs 11/13/24 Unk nown Rx isosorbide mononitrate 60 mg See Rx Instructions .Route 4 Unknown Rx tablet,extended release 24 hr .COMPLEX #90 tabs Allergy/AdvReac Type Severity Reaction Status Date / Time hydrochlorothiazide Allergy headache Verified 01/07/25 11:58 lorazepam (From Ativan) Allergy Unknown Verified 01/07/25 11:58 NSAIDS (Non-Steroidal Allergy Swelling Verified 01/07/25 11:58 Anti-Inflamma Sulfa (Sulfonamide Allergy Unknown Verified 01/07/25 11:58 Antibiotics) Family History Mother Myocardial infarction Father Myocardial infarction Hypertension Brother CAD (coronary artery disease) CVA (cerebral vascular accident) Brother Myocardial infarction CAD (coronary artery disease) Sister Myocardial infarction CAD (coronary artery disease) Surgical History H/O shoulder replacement History of left heart catheterization (LHC) ( 03/24/22) History of repair of right rotator cuff ( 01/10/21) History of tonsillectomy History of lumpe (more content not included)... Normal [facility] Eosinophil percentageOrdered By: Baldemar Mooney on 01-07-2025 Eosinophils/100 WBC (Bld) 1.2 % 0-5 [facility] Erythrocyte distribution wid th ratioOrdered By: Baldemar Mooney on 01-07-2025 Erythrocyte distribution width (RBC) [Ratio] 15.5 % High 11.6-14.6 [facility] Erythrocyte distribution wid th standard deviationOrdered By: Baldemar Mooney on 01-07-2025 Erythrocyte distribution width (RBC) [Entitic vol] 57.7 fL High 35.1-43.9 [facility] Estimated glomerular filtrat ion rate (GFR) AmericanOrdered By: Baldemar Mooney on 01-07-2025 Estimated GFR (MDRD) Amer 44 mL/min Low >60 [facility] Comment on above: GFR Calc Estimation of creatinine madyson aranceOrdered By: Baldemar Mooney on 01-07-2025 Estimated Creatinine Clearance Calc 24.79 ml/min [facility] Glomerular filtration rate ( GFR) estimationOrdered By: Baldemar Mooney on 01-07-2025 Estimated GFR (MDRD) Non-Af Amer 36 mL/min Low >60 [facility] Comment on above: Non- GFR Calc Glucose measurementOrdered B y: Baldemar Mooney on 01-07-2025 Glucose [Mass/Vol] 148 mg/dL High 74-106 [facility] Comment on above: Fasting Glucose resu lt greater than or equal to 126 mg/dL suggests DIABETES MELLITUS per A.D.A. criteria. Hematocrit Auto (Bld) [Volum e fraction]Ordered By: Baldemar Mooney on 01-07-2025 Hematocrit (Bld) [Volume fraction] 35.8 % Low 37-47 [facility] Hemoglobin measurementOrdere d By: Baldemar Mooney on 01-07-2025 Hemoglobin (Bld) [Mass/Vol] 11.4 g/dL Low 12.0-15.0 [facility] Immature granulocytes/100 WB C Auto (Bld)Ordered By: Baldemar Mooney on 01-07-2025 Immature granulocytes/100 WBC (Bld) 1.500 % High 0.0-0.9 [facility] Comment on above: IG% - Immature Granu locytes (promyelocytes, myelocytes and metamyelocytes) > 1% indicates that a LEFT SHIFT is Present. L501.4020on 01-07-2025 TROPONIN-I HS 27 pg/mL Normal 3.0-54.0 [facility] Comment on above: Result Comment: Plea se Note: New Test Units and Gender Specific Reference Ranges. For more information see Policy Stat Procedure Albert Lea High Sensitivity Troponin (TNIH) and attachments. Performed By: #### L 501.4020 #### [facility] Laboratory [address] [place], [place], [address] L501.5425on 01-07-2025 TROPONIN-I HS 30 pg/mL Normal 3.0-54.0 [facility] Comment on above: Order Comment: 1 Y Result Comment: Plea se Note: New Test Units and Gender Specific Reference Ranges. For more information see Policy Stat Procedure [place] High Sensitivity Troponin (TNIH) and attachments. Performed By: #### L 500.2500, L501.5425, L100.0100 #### [facility] Laboratory [address] [place], [address] Lymphocytes Auto (Unsp spec) [#/Vol]Ordered By: Baldemar Mooney on 01-07-2025 Lymphocytes (Bld) [#/Vol] 2.20 10*3/uL 0.83-4.51 [facility] Lymphocytes/100 WBC Auto (Un sp spec)Ordered By: Baldemar Mooney on 01-07-2025 Lymphocytes/100 WBC (Bld) 16.1 % Low 19-41 [facility] MCV (mean corpuscular volume ) determinationOrdered By: Baldemar Mooney on 01-07-2025 MCV (RBC) [Entitic vol] 100.3 fL High 81-99 [facility] Manual differential comment Clemente (Bld) [Interp]Ordered By: Baldemar Mooney on 01-07-2025 Differential Comment SCANNED [facility] Mean corpuscular hemoglobin (MCH) determinationOrdered By: Baldemar Mooney on 01-07-2025 MCH (RBC) [Entitic mass] 31.9 pg 27.0-32.0 [facility] Mean corpuscular hemoglobin concentration (MCHC) determinationOrdered By: Baldemar Mooney on 01-07-2025 MCHC (RBC) [Mass/Vol] 31.8 g/dL Low 32-36 [facility] Mean platelet volume determi nationOrdered By: Baldemar Mooney on 01-07-2025 Platelet mean volume (Bld) [Entitic vol] 10.8 fL 6.2-12.0 [facility] Monocyte percentageOrdered B y: Baldemar Mooney on 01-07-2025 Monocytes/100 WBC (Bld) 12.3 % High 0-10 [facility] Neutrophil percentageOrdered By: Baldemar Mooney on 01-07-2025 Neutrophils/100 WBC (Bld) 68.2 % 47-70 [facility] Nucleated red blood cell per centageOrdered By: Baldemar Mooney on 01-07-2025 Nucleated RBC/100 WBC (Bld) [Ratio] 0 % 0-5 [facility] Pathologist review Clemente (Unsp spec) [Interp]Ordered By: Baldemar Mooney on 01-07-2025 Differential Pathologist's Review Reviewed [facility] Comment on above: Previous reported re sult: Naomy serrato Edited by: SAMAN on 01/08/25:1329Leukocytosis.Macrocytic anemia.Clinical correlation necessary.Jaskaran Julio M.D. 01/08/25 AMENDED REPORT 01/08/25 1329 PATH REV previously reported as: March rojelio Platelet countOrdered By: Catalino Mooney on 01-07-2025 Platelets (Bld) [#/Vol] 322 10*3/uL 150-450 [facility] Platelets LM Ql (Bld)Ordered By: Baldemar Mooney on 01-07-2025 Platelet Estimate ADEQUATE ADEQ [facility] Potassium measurementOrdered By: Baldemar Mooney on 01-07-2025 Potassium [Moles/Vol] 3.8 mmol/L 3.5-5.1 [facility] RBC Auto (Bld) [#/Vol]Ordere d By: Baldemar Mooney on 01-07-2025 RBC (Bld) [#/Vol] 3.57 10*6/uL Low 4.2-5.4 [facility] RBC morphology finding Nom ( Bld)Ordered By: Baldemar Mooney on 01-07-2025 Red Blood Cell Morphology NORM C+C NORMAL NORM C&C [facility] Serum anion gap measurementO rdered By: Baldemar Mooney on 01-07-2025 Anion gap [Moles/Vol] 7 mmol/L 5-15 [facility] Serum or plasma calcium abdi urement (mass/volume)Ordered By: Baldemar Mooney on 01-07-2025 Calcium [Mass/Vol] 9.2 mg/dL 8.5-10.1 [facility] Serum or plasma creatinine m easurement (mass/volume)Ordered By: Baldemar Mooney on 01-07-2025 Creatinine [Mass/Vol] 1.48 mg/dL High 0.55-1.02 [facility] Comment on above: The validity of the calculated GFR & GFRAA in patients over 70 years has not been determined. Clinical correlation is essential. Serum or plasma urea nitroge n measurement (mass/volume)Ordered By: Baldemar Mooney on 01-07-2025 Urea nitrogen [Mass/Vol] 14 mg/dL 7-18 [facility] Sodium levelOrdered By: Baldemar Mooney on 01-07-2025 Sodium [Moles/Vol] 138 mmol/L 136-145 [facility] Troponin IOrdered By: Baldemar guzman on 01-07-2025 Troponin I High Sensitivity 27 pg/mL 3.0-54.0 [facility] Comment on above: Please Note: New Alexus t Units and Gender Specific Reference Ranges. For more information see Policy Stat Procedure [place] High Sensitivity Troponin (TNIH) and attachments. White blood cell (WBC) count Ordered By: Baldemar Mooney on 01-07-2025 WBC (Bld) [#/Vol] 13.7 10*3/uL High 4.4-11.0 [facility] CNOVon 12-25-2024 CNOV Office Visit (SWS ) DOLORES VILLA ([id number]) 1945 F Date Time Provider Department 12/25/24 2:00 PM MAURILIO GARCIA During your visit today, we recorded the following information about you: Temperature Pulse Blood pressure Weight 97.7 degrees 137/minute 119/78 54.4 kg Height 1.524 m Valentina LechugaDAVID 01/01/2025 12:03 PM Signed REVIEW OF SYSTEMS: General: The patient denies fatigue, denies weight loss, denies weight gain, denies feeling hot, and denies feelings of cold. Eyes: The patient denies glaucoma, denies eye injury/surgery, does not wear glasses or contacts. Ear/Nose/Throat: The patient notes allergies, denies hayfever, denies ear infections, and denies bloody noses. Cardiovascular: The patient denies chest pain, notes heart disease, notes high blood pressure,notes cardiac stent, notes prior heart attack, denies irregular heart beat, notes high cholesterol, denies poor circulation, denies heart failure, other cardiac issues, denies claudication, notes cold feet, denies peripheral arterial stent. Respiratory: The patient denies tuberculosis, denies pneumonia, denies frequent cough, denies pulmonary embolism, denies shortness of breath, and denies coughing up blood. Gastrointestinal: The patient denies difficulty swallowing, notes acid reflux, denies ulcers, denies vomiting, denies jaundice/hepatitis, denies gallbladder problems, denies black or tarry stools, denies hemorrhoids, denies bleeding from rectum, notes diverticulitis, denies constipation, denies diarrhea, denies loss of stool control, and denies hernias. Kidney/Bladder: The patient denies kidney stones, denies urine infections, and denies bloody urine. Skin: The patient denies a history of skin cancer, denies bleeding/changing moles, and denies a history of skin rash. Neurologic: The patient denies a history of epilepsy/convulsions, denies headaches, denies head/spinal injuries, and denies stroke/TIA. Psychiatric: The patient denies psychiatric medications, denies depression, and denies voices, denies substance abuse. Endocrine: The patient denies thyroid disorders, notes diabetes, and denies hormonal problems. Hematologic: The patient denies a history of bruising, denies bleeding, and denies anemia, denies blood clots. Infections: The patient notes a history of measles and mumps, denies rheumatic fever, and denies sexually transmitted diseases. Musculoskeletal: The patient denies back pain/injury, notes back problems, denies sciatica, denies knee/foot trouble, notes arthritis, or denies gout. When was patient's last Mammogram screening? 2020 Last Colonoscopy: 2018 DAVID Lay Daniel P, MD 01/01/2025 12:03 PM Signed HISTORY AND PHYSICAL Dolores Villa 1945 REFERRING PHYSICIAN: Dipika Hernandez 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 CHIEF COMPLAINT: Consult (EGD, 2018 last EGD) HPI: The patient is a 79 year old female referred for endoscopy. Dolores notes no history of colon complaints. The patient notes no history of upper GI complaints. Dolores has undergone prior endoscopy. 2018 The patient is being seen by me today at the request of Dr. Hernandez for my opinion and advice regarding Gastroesophageal reflux disease, unspecified whether esophagitis present 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. PAST MEDICAL HISTORY Diagnosis Date Abdominal pain, left lower quadrant Abdominal pain, unspecified site 08/22/2010 Arthritis 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 09/20/2018 Added automatically from request for surgery [id number] Barretts esophagus EGD 2010 and 08/25/13 Bronchitis 07/30/2010 Pt was having cough with chest pain . -Was started on nebulisation and antibiotic at [facility]. -Symtoms better now. CAD (coronary artery disease) s/p PCI/CHRISTELLE to LAD with 2.75x15 Xience dilated to 3.4 Complication of anesthesia nausea, vomiting Controlled type 2 diabetes mellitus without complication, without long-term current use of insulin ([facility]) 10/14/2016 Contusion of shoulder region Diverticulitis of sigmoid colon 09/17/2010 Dupuytren's contracture 11/01/2012 left worse than right Enlargement of lymph nodes Esophageal reflux Esophagitis, unspecified 04/03/2011 Generalized osteoarthrosis, unspecified site History of colonic polyps 09/20/2018 Added automatically from request for surgery [id number] Hypertension Kidney disease Lichen sclerosus Migraine 08/23/2009 Migraine without aura, without mention of intractable migraine without mention of status migrainosus Pain in joint, shoulder region PONV (postoperative nausea and vomiting) Pure hypercholesterolemia Sciatica 10/09/2010 Sebaceous cyst 05/01/2015 Subacute thyroiditis Thoracic aortic aneurysm without rupture ([facility]) 08/26/2019 Trigger thumb of left hand 08/12/2017 Added automatically from request for surgery [id number] Surgery effective Unspeci (more content not included)... Normal [facility] CNPNon 12-25-2024 CNPN Telephone (Exit Games[employer]) DOLORES VILLA ([id number]) 1945 F Date Time Provider Department 12/25/24 MAURILIO GARCIA GENSWS During your visit today, we recorded the following information about you: Mari Rodriguez 12/25/2024 3:06 PM Signed 01-01-2025 CLAUDIA Verma provider went over procedure instructions and informed patient to hold blood thinner for 3 days prior Mair Zapata 12/27/2024 12:22 PM Signed Patient stated if anything were to happen she would not go through with treatment. Also, insurance Allergies As of Date: 12/25/2024 Noted Allergy Reaction ATIVAN (LORAZEPAM) 12/07/2005 14 - Other: See Comments Comments: family members had MS change BENZONATATE 04/26/2015 8 - GI Upset HCTZ (HYDROCHLOROTHIAZIDE) 12/10/2008 5 - Intolerance Comments: headache SEASONAL ALLERGIES 12/05/2012 14 - Other: See Comments Comments: Receiving allergy shots. SULFA (SULFONAMIDE ANTIBIOTICS) 12/07/2005 16 - Unknown Date Reviewed: 12/25/2024 Reviewed by: Valentina Lechuga LPN - Fully Assessed Reason for Visit: 01-01-2025 EGD [place], [Other] Prescriptions as of 02/21/2025 - Lancets Test blood sugar(s) 1 time daily and as needed. Dx: Type 2 DM - Uncontrolled E11.9 Insulin: No - blood sugar diagnostic (BLOOD GLUCOSE TEST) test strip Test blood sugar(s) 1 time daily and as needed. Dx: Type 2 DM - Uncontrolled E11.9 Insulin: No - levothyroxine (SYNTHROID) 75 mcg tablet Take 1 tablet by mouth once daily. - FOLIC ACID ORAL Take by mouth. - ferrous sulfate (IRON) 325 mg (65 mg iron) tablet Take 325 mg by mouth. - nitroglycerin sublingual (NITROQUICK) 0.4 mg SL tablet Dissolve 1 tablet under the tongue every 5 minutes as needed. As directed for chest pain. IF NO RELIEF CALL 911 - isosorbide mononitrate ER (IMDUR) 60 mg 24 hr tablet Take 1 tablet by mouth once daily. - ELIQUIS 5 mg tab(s) Take 1 tablet by mouth two times a day. - amoxicillin (AMOXIL) 500 mg capsule Take by mouth. Take four tablets by mouth one hour prior to dental procedure - rosuvastatin (CRESTOR) 40 mg tablet Take 1 tablet by mouth daily at bedtime. - lisinopril (ZESTRIL) 10 mg tablet Take 1 tablet by mouth once daily. - glipiZIDE (GLUCOTROL) 5 mg tablet Take 1 tablet (5 mg) by mouth two times a day before meals. - metoprolol tartrate, short acting, (LOPRESSOR) 50 mg tablet Take 1 tablet by mouth two times a day. - Blood Pressure Monitor (BLOOD PRESSURE KIT) 1 Each once daily as needed. - metFORMIN ER (GLUCOPHAGE XR) 500 mg 24 hr tablet Take 1 tablet by mouth two times a day with meals. As directed - omeprazole (PRILOSEC) 20 mg capsule Take 1 capsule by mouth daily before breakfast. 1/2 hr before meal. - cholecalciferol (VITAMIN D3) 50 mcg (2,000 unit) tablet Take 1 tablet by mouth once daily. - ACETAMINOPHEN/DIPHENHYD RAMINE (TYLENOL PM EXTRA STRENGTH ORAL) Take by mouth every 8 hours as needed. - THERAPEUTIC MULTIVITAMIN TAB Take by mouth once daily. Problem List As Of Date 12/25/2024 Noted Resolved Hypothyroidism [E03.9] Mixed hyperlipidemia [E78.2] 06/15/2006 CERVICALGIA [M54.2] 06/30/2007 08/08/2007 OTHER HAMMER TOE [M20.40] 07/23/2008 JOINT PAIN-SHLDER [M25.519] 09/17/2008 Migraine [G43.909] 08/23/2009 11/19/2020 GERD (Gastroesophageal Reflux Disease) [K21.9] 11/13/2009 Occlusion and stenosis of carotid artery withou*01/03/2010 CAD (coronary artery disease) [I25.10] 07/30/2010 Diverticulitis of Colon [K57.32] 08/22/2010 SUMMARY [V999.95] 01/29/2011 09/26/2021 Postsurgical percutaneous transluminal coronary*02/04/2011 Esophagitis [K20.90] 04/03/2011 09/26/2021 Dupuytren's contracture [M72.0] 11/01/2012 Trigger ring finger of left hand [M65.342] 12/19/2012 Sacroiliitis, not elsewhere classified (HCC) [M*02/07/2013 05/17/2020 Thoracic and lumbosacral neuritis [M54.14, M54.*02/07/2013 History of lumbar laminectomy [Z98.890] 10/21/2015 Bulge of lumbar disc without myelopathy [M51.36*10/21/2015 Type 2 diabetes mellitus with stage 3a chronic *10/14/2016 Stage 3a chronic kidney disease (HCC) [N18.31] 10/14/2016 Trigger thumb of left hand [M65.312] 08/12/2017 11/26/2017 Trigger finger, right ring finger [M65.341] 08/08/2018 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 [K22.70] 09/20/2018 Chronic pain of left knee--since contusion [M25*10/06/2018 Thoracic aortic aneurysm without rupture (HCC) *08/26/2019 Hypertensive kidney disease with stage 3a chron*09/26/2021 Angina pectoris (HCC) [I20.9] 02/12/2023 07/18/2023 Essential (primary) hypertension [I10] 03/02/2022 History of left heart catheterization (LHC) [Z9*02/12/2023 PAF (paroxysmal atrial fibrillation) (HCC) [I48*02/12/2023 Presence of stent in coronary artery [Z95.5] 01/27/2011 Pure hypercholesterolemia [E78.00] 03/02/2022 Encounter Status:Closed by MARI RODRIGUEZ on 02/21/25 Normal [facility] 25(OH)D3 [facility] 2024 25-hydroxyvitamin D3 [Mass/Vol] 43.6 ng/mL Normal 31.0-80.0 [facility] Comment on above: Order Comment: Speci men Type: BLOOD SPECIMEN Ordering Facility: [facility] Address: [address] [place] [address] Result Comment: Clas sification of 25 OH Vitamin D status: Deficiency/Insufficiency: < or = 30 ng/ml. Sufficiency/Optimal Levels: 31-80 ng/mL Toxicity: > 100 ng/mL. Test performed by chemiluminescent immunoassay. Performed By: #### 2 4331-1, 01753-9, 05059-9 #### [facility] CLIA [id number] [address] [place] [address] [place] ALBUMIN/CREATININE RATIO, UR INEon 12-18-2024 Albumin DL <= 20 mg/L (U) [Mass/Vol] 100.5 mg/L Normal [facility] Comment on above: Order Comment: Speci men Type: URINE SPECIMENOrdering Facility: [facility] Address: [address] [place] [address] Performed By: #### U ACR ####[facility] [id number] [place] [address] [place] Albumin/Creatinine (U) [Mass ratio] 85 mg/g High <30 [facility] Comment on above: Order Comment: Speci men Type: URINE SPECIMENOrdering Facility: [facility] Address: [address] [place] [address] Result Comment: Adul t Male and Female Nephrotic Criteria: <30 mg/g is considered normal to mildly increased 30-300 mg/g is considered moderately increased >300 mg/g is considered severely increased KDIGO. (2013). KDIGO 2012 Clinical Practice Guideline for the Evaluation and Management of Chronic Kidney Disease. Official Journal of the International Society of Nephrology, 3(1), 1-150. Performed By: #### U ACR ####[facility] [id number] [place] [address] [place] Creatinine (U) [Mass/Vol] 118.0 mg/dL Normal 20.0-300.0 [facility] Comment on above: Order Comment: Speci men Type: URINE SPECIMENOrdering Facility: [facility] Address: [address] [place] [address] Performed By: #### U ACR ####[facility] [id number] [place] [address] [place] CBC panel Auto (Bld)on 12-18 Erythrocyte distribution width (RBC) [Ratio] 15.9 % High 11.5-15.0 [facility] Comment on above: Order Comment: Speci men Type: BLOOD SPECIMEN Ordering Facility: [facility] Address: [address] [place] [address] Performed By: #### 2 4331-1, 44096-1, 49670-9 #### [facility] CLIA [id number] [address] [place] [address] [place] Hematocrit (Bld) [Volume fraction] 37.5 % Normal 36.0-46.0 [facility] Comment on above: Order Comment: Speci men Type: BLOOD SPECIMEN Ordering Facility: [facility] Address: [address] [place] [address] Performed By: #### 2 4331-1, , #### [facility] CLIA [id number] [address] [place] [address] [place] Hemoglobin (Bld) [Mass/Vol] 11.9 g/dL Normal 11.5-15.5 [facility] Comment on above: Order Comment: Speci men Type: BLOOD SPECIMEN Ordering Facility: [facility] Address: [address] [place] [address] Performed By: #### 2 4331-1, , #### [facility] CLIA [id number] [address] [place] [address] [place] MCH (RBC) [Entitic mass] 32.0 pg Normal 26.0-34.0 [facility] Comment on above: Order Comment: Speci men Type: BLOOD SPECIMEN Ordering Facility: [facility] Address: [address] [place] [address] Performed By: #### 2 4331-1, , #### [facility] CLIA [id number] [address] [place] [address] [place] MCHC (RBC) [Mass/Vol] 31.7 g/dL Normal 30.5-36.0 [facility] Comment on above: Order Comment: Speci men Type: BLOOD SPECIMEN Ordering Facility: [facility] Address: [address] [place] [address] Performed By: #### 2 4331-1, , #### [facility] CLIA [id number] [address] [place] [address] [place] MCV (RBC) [Entitic vol] 100.8 fL High 80.0-100.0 [facility] Comment on above: Order Comment: Speci men Type: BLOOD SPECIMEN Ordering Facility: [facility] Address: [address] [place] [address] Performed By: #### 2 4331-1, , #### [facility] CLIA [id number] [address] [place] [address] [place] Nucleated RBC (Bld) [#/Vol] 10*3/uL Normal <0.01 [facility] Comment on above: Order Comment: Speci men Type: BLOOD SPECIMEN Ordering Facility: [facility] Address: [address] [place] [address] Performed By: #### 2 4331-1, , #### [facility] CLIA [id number] [address] [place] [address] [place] Platelet mean volume (Bld) [Entitic vol] 11.6 fL Normal 9.0-12.7 [facility] Comment on above: Order Comment: Speci men Type: BLOOD SPECIMEN Ordering Facility: [facility] Address: [address] [place] [address] Performed By: #### 2 4331-1, , #### [facility] CLIA [id number] [address] [place] [address] [place] Platelets (Bld) [#/Vol] 219 10*3/uL Normal 150-400 [facility] Comment on above: Order Comment: Speci men Type: BLOOD SPECIMEN Ordering Facility: [facility] Address: [address] [place] [address] Performed By: #### 2 4331-1, , #### [facility] CLIA [id number] [address] [place] [address] [place] RBC (Bld) [#/Vol] 3.72 10*6/uL Low 3.90-5.[address] [facility] Comment on above: Order Comment: Speci men Type: BLOOD SPECIMEN Ordering Facility: [facility] Address: [address] [place], [place] [id number] Performed By: #### 2 4331-1, 13199-4, 92090-3 #### [facility] CLIA [id number] [address] [place] [address] [place] WBC (Bld) [#/Vol] 7.78 10*3/uL Normal 3.70-11.[address] [facility] Comment on above: Order Comment: Speci men Type: BLOOD SPECIMEN Ordering Facility: [facility] Address: [address] [place] [address] Performed By: #### 2 4331-1, 18195-6, 89455-4 #### [facility] CLIA [id number] [address] [place] [address] [place] CNOVon 12-18-2024 CNOV Office Visit (INTMWS ) DOLORES VILLA ([id number]) 1945 F Date Time Provider Department 12/18/24 7:00 AM DIPIKA HERNANDEZ INTMWS During your visit today, we recorded the following information about you: Pulse Respiration Blood pressure Weight 67/minute 16/minute 119/65 55 kg Dipika Hernandez, OMAR[employer] 01/02/2025 4:37 PM Addendum SUBJECTIVE: Depression Screening Never done Anxiety Screening Never done Shingrix Vaccine(2 of 3) due on 01/24/2016 RSV Vaccine(1 - 1-dose 75+ series) Never done Influenza Vaccine(1) due on 07/30/2024 Covid-19 Vaccine( season) due on 07/30/2024 Dilated Retinal Exam due on 09/13/2024 Advance Directive Discussion due on 11/29/2024 HbA1C due on 12/09/2024 Urine Albumin:Creatinine Ratio due on 12/13/2024 LDL Cholesterol due on 12/13/2024 HPI Dolores Villa is a 79 year old female.PMH significant for ACTIVE PROBLEM LIST Hypothyroidism Mixed Hyperlipidemia Other Hammer Toe (Acquired) Pain in Joint, Shoulder Region Gerd (Gastroesophageal Reflux Disease) Occlusion and Stenosis of Carotid Artery Without Mention of Cerebral Infarction Cad (Coronary Artery Disease) Diverticulitis of Colon Postsurgical Percutaneous Transluminal Coronary Angioplasty Status Dupuytren's Contracture Trigger Ring Finger of Left Hand Thoracic and Lumbosacral Neuritis History of Lumbar Laminectomy Bulge of Lumbar Disc Without Myelopathy Type 2 Diabetes Mellitus With Stage 3a Chronic Kidney Disease, Without Long-Term Current Use of Insulin (Hcc) Stage 3a chronic kidney disease (HCC) Trigger Finger, Right Ring Finger Dial's Esophagus Without Dysplasia Chronic pain of left knee--since contusion Thoracic Aortic Aneurysm Without Rupture ([facility]) Hypertensive Kidney Disease With Stage 3a Chronic Kidney Disease (Hcc) Essential (Primary) Hypertension History of Left Heart Catheterization (Lhc) Paf (Paroxysmal Atrial Fibrillation) ([facility]) Presence of Stent in Coronary Artery Pure Hypercholesterolemia Presents today for follow-up visit. She is followed by [facility] for CAD, PAF on OAC. She had right sided periorbital cellulitis with MRSA treated with doxycycline now cleared. Was seen at urgent care and also [facility]. Reports she had what sounds like a folliculitis now resolved as well. DIABETES MELLITUS: She notes diabetes continues to be well controlled at home. Highest reading since last here was 119.. She notes she has been adhering to diet. Consistent with medications. Without report of excessive thirst or increased frequency of urination, chest pain or dyspnea , numbness, tingling or pain in extremities, new or unusual visual symptoms, low sugar/hypoglycemic reactions, weight loss/gain, lightheadedness/dizzine ss and bowel changes/loose stools. Patient's last HgA1C was Hemoglobin A1C (%) Date Value 06/08/2024 7.3 12/13/2023 6.8 09/23/2021 7.4 03/04/2021 7.2 ) HTN: Ms. Villa indicates that she is without headache, chest pain, palpitations, dyspnea, peripheral edema, orthopnea, fatigue and PND. Last 14 Encounter BP Readings: Date: BP: 12/18/2024 119/65 11/18/2024 112/82 09/11/2024 128/74 06/14/2024 125/79 12/16/2023 90/60 12/13/2023 102/58 11/24/2023 144/81 11/08/2023 104/60 07/21/2023 108/62 06/14/2023 102/58 02/12/2023 108/62 12/14/2022 100/60 11/16/2022 138/94 11/16/2022 120/60 Hypothyroidism. She is doing well on her current dose of Synthroid., Without symptomatic complaints. TSH Date Value 06/08/2024 1.660 mIU/L 12/13/2023 1.390 mIU/L 09/23/2021 2.590 uU/mL 08/07/2020 1.030 uU/mL ) No current GERD symptoms reported. No nausea vomiting reflux or heartburn on PPI. Her last EGD 2017. No recent carotid ultrasound, last completed 2017. No dizziness lightheadedness is present. Continues with iron when she remembers. Review of Systems Constitutional: Negative. Respiratory: Negative. Cardiovascular: Negative. Endocrine: Negative. Objective BP 119/65 Pulse 67 Resp 16 Wt 55 kg (121 lb 4.1 oz) BMI 23.50 kg/m? Physical Exam Vitals and nursing note reviewed. Constitutional: General: She is not in acute distress. Appearance: She is not ill-appearing, toxic-appearing or diaphoretic. HENT: Head: Normocephalic and atraumatic. Right Ear: Tympanic membrane and ear canal normal. Left Ear: Tympanic membrane and ear canal normal. Nose: Right Sinus: No maxillary sinus tenderness or frontal sinus tenderness. Left Sinus: No maxillary sinus tenderness or frontal sinus tenderness. Mouth/Throat: Lips: [place]. Mouth: Mucous membranes are moist. Pharynx: Oropharynx is clear. Tonsils: No tonsillar exudate. Eyes: Conjunctiva/sclera: Conjunctivae normal. Neck: Thyroid: No thyromegaly. Vascular: Normal carotid pulses. No carotid bruit or JVD. Cardiovascular: Rate and Rhythm: Normal rate. Rhythm (more content not included)... Normal [facility] Comprehensive metabolic 2000 panelon 12-18-2024 Albumin [Mass/Vol] 4.0 g/dL Normal 3.9-4.9 [facility] Comment on above: Order Comment: Speci men Type: BLOOD SPECIMEN Ordering Facility: [facility] Address: [address] [place] [address] Performed By: #### 2 4331-1, , #### [facility] CLIA [id number] [address] [place] [address] [place] ALP [Catalytic activity/Vol] 87 U/L Normal 34-123 [facility] Comment on above: Order Comment: Speci men Type: BLOOD SPECIMEN Ordering Facility: [facility] Address: [address] [place] [address] Performed By: #### 2 4331-1, , #### [facility] CLIA [id number] [address] [place] [address] [place] ALT [Catalytic activity/Vol] 12 U/L Normal 7-38 [facility] Comment on above: Order Comment: Speci men Type: BLOOD SPECIMEN Ordering Facility: [facility] Address: [address] [place] [address] Performed By: #### 2 4331-1, , #### [facility] CLIA [id number] [address] [place] [address] [place] Anion gap [Moles/Vol] 10 mmol/L Normal 8-15 [facility] Comment on above: Order Comment: Speci men Type: BLOOD SPECIMEN Ordering Facility: [facility] Address: [address] [place] [address] Performed By: #### 2 4331-1, , #### [facility] CLIA [id number] [address] [place] [address] [place] AST [Catalytic activity/Vol] 23 U/L Normal 13-35 [facility] Comment on above: Order Comment: Speci men Type: BLOOD SPECIMEN Ordering Facility: [facility] Address: [address] [place] [address] Performed By: #### 2 4331-1, , #### [facility] CLIA [id number] [address] [place] [address] [place] Bilirubin [Mass/Vol] 0.5 mg/dL Normal 0.2-1.3 [facility] Comment on above: Order Comment: Speci men Type: BLOOD SPECIMEN Ordering Facility: [facility] Address: [address] [place], [place] [address] Performed By: #### 2 4331-1, , #### [facility] CLIA [id number] [address] [place] [address] [place] Calcium [Mass/Vol] 10.1 mg/dL Normal 8.5-10.2 [facility] Comment on above: Order Comment: Speci men Type: BLOOD SPECIMEN Ordering Facility: [facility] Address: [address] [place], [place] [address] Performed By: #### 2 4331-1, , #### [facility] CLIA [id number] [address] [place] [address] [place] Chloride [Moles/Vol] 102 mmol/L Normal 98-107 [facility] Comment on above: Order Comment: Speci men Type: BLOOD SPECIMEN Ordering Facility: [facility] Address: [address] [place] [address] Performed By: #### 2 4331-1, , #### [facility] CLIA [id number] [address] [place], [place] [id number] [place] CO2 [Moles/Vol] 28 mmol/L Normal 22-30 [facility] Comment on above: Order Comment: Speci men Type: BLOOD SPECIMEN Ordering Facility: [facility] Address: [address] [place] [address] Performed By: #### 2 4331-1, , #### [facility] CLIA [id number] [address] [place] [address] [place] Creatinine [Mass/Vol] 1.43 mg/dL High 0.58-0.96 [facility] Comment on above: Order Comment: Specbeverly men Type: BLOOD SPECIMEN Ordering Facility: [facility] Address: [address] [place] [address] Performed By: #### 2 4331-1, , #### [facility] CLIA [id number] [address] [place] [address] [place] Creatinine and Glomerular filtration rate.predicted panel (S/P/Bld) 37 mL/min/1.73m??? Low >=60 [facility] Comment on above: Order Comment: Julius men Type: BLOOD SPECIMEN Ordering Facility: [facility] Address: [address] [place] [address] Result Comment: Candace mated Glomerular Filtration Rate (eGFR) is calculated using the 2020 CKD-EPI creatinine equation. This equation utilizes serum creatinine, sex, and age as parameters. The creatinine assay has traceable calibration to isotope dilution-mass spectrometry. Refer to KDIGO guidelines for clinical interpretation. In patients with unstable renal function, e.g. those with acute kidney injury, the eGFR may not accurately reflect actual GFR. Performed By: #### 2 4331-1, , #### [facility] CLIA [id number] [address] [place] [address] [place] Glucose [Mass/Vol] 101 mg/dL High 74-99 [facility] Comment on above: Order Comment: Deontei men Type: BLOOD SPECIMEN Ordering Facility: [facility] Address: [address] [place] [address] Result Comment: The [place] Diabetes Association (ADA) provides guidance for cutoff values for fasting glucose and random glucose. The ADA defines fasting as no caloric intake for at least 8 hours. Fasting plasma glucose results between 100 to 125 mg/dL indicate increased risk for diabetes (prediabetes). Fasting plasma glucose results greater than or equal to 126 mg/dL meet the criteria for diagnosis of diabetes. In the absence of unequivocal hyperglycemia, results should be confirmed by repeat testing. In a patient with classic symptoms of hyperglycemia or hyperglycemic crisis, random plasma glucose results greater than or equal to 200 mg/dL meet the criteria for diagnosis of diabetes. Reference: Standards of Medical Care in Diabetes 2016, [place] Diabetes Association. Diabetes Care. 2016.39(Suppl 1). Performed By: #### 2 4331-1, , #### [facility] CLIA [id number] [address] [place] [address] [place] Potassium [Moles/Vol] 4.7 mmol/L Normal 3.7-5.1 [facility] Comment on above: Order Comment: Speci men Type: BLOOD SPECIMEN Ordering Facility: [facility] Address: [address] [place] [address] Performed By: #### 2 4331-, , #### [facility] CLIA [id number] [address] [place] [address] [place] Protein [Mass/Vol] 7.9 g/dL Normal 6.3-8.0 [facility] Comment on above: Order Comment: Speci men Type: BLOOD SPECIMEN Ordering Facility: [facility] Address: [address] [place] [address] Performed By: #### 2 4331-1, , #### [facility] CLIA [id number] [address] [place] [address] [place] Sodium [Moles/Vol] 140 mmol/L Normal 136-144 [facility] Comment on above: Order Comment: Speci men Type: BLOOD SPECIMEN Ordering Facility: [facility] Address: [address] [place] [address] Performed By: #### 2 433-1, , #### [facility] CLIA [id number] [address] [place] [address] [place] Urea nitrogen [Mass/Vol] 13 mg/dL Normal 7-21 [facility] Comment on above: Order Comment: Julius mayfield Type: BLOOD SPECIMEN Ordering Facility: [facility] Address: [address] [place] [address] Performed By: #### 2 433-1, , #### [facility] CLIA [id number] [address] [place] [address] [place] HbA1c (Bld)on 12-18-2024 Average glucose Estimated from glycated hemoglobin (Bld) [Mass/Vol] 154 mg/dL Normal [facility] Comment on above: Order Comment: Julius mayfield Type: BLOOD SPECIMEN Ordering Facility: [facility] Address: [address] [place] [address] Result Comment: eAG: (Estimated average glucose) is a calculated value from HgbA1c and is financial service representative of the average blood glucose level in the last 2-3 month period. Performed By: #### 2 433-1, , #### [facility] CLIA [id number] [address] [place] [address] [place] HbA1c (Bld) [Mass fraction] 7.0 % High 4.3-5.6 [facility] Comment on above: Order Comment: Julius mayfield Type: BLOOD SPECIMEN Ordering Facility: [facility] Address: [address] [place] [address] Result Comment: [place] Diabetes Association guidelines indicate that patients with HgbA1c in the range 5.7-6.4% are at increased risk for development of diabetes, and intervention by lifestyle modification may be beneficial. HgbA1c greater or equal to 6.5% is considered diagnostic of diabetes. Performed By: #### 2 4331-1, , #### [facility] CLIA [id number] [address] [place] [address] [place] Lipid 1996 panelon 5 Cholesterol [Mass/Vol] 126 mg/dL Normal <200 [facility] Comment on above: Order Comment: Julius men Type: BLOOD SPECIMEN Ordering Facility: [facility] Address: [address] [place] [address] Result Comment: <200 mg/dL, Desirable 200-239 mg/dL, Borderline high >239 mg/dL, High Performed By: #### 2 4331-1, , 39378-8 #### [facility] CLIA [id number] [address] [place] [address] [place] Cholesterol in HDL [Mass/Vol] 35 mg/dL Low >39 [facility] Comment on above: Order Comment: Deontei men Type: BLOOD SPECIMEN Ordering Facility: [facility] Address: [address] [place] [address] Result Comment: 40-5 9 mg/dL, Acceptable >59 mg/dL, High: Negative risk factor for coronary heart disease <40 mg/dL, Low: Positive risk factor for coronary heart disease Performed By: #### 2 4331-1, , #### [facility] CLIA [id number] [address] [place] [address] [facility] Cholesterol in LDL [Mass/Vol] 72 mg/dL Normal <100 [facility] Comment on above: Order Comment: Speci men Type: BLOOD SPECIMEN Ordering Facility: [facility] Address: [address] [place] [address] Result Comment: <100 mg/dL, Optimal 100-129 mg/dL, Near optimal/above optimal 130-159 mg/dL, Borderline high 160-189 mg/dL, High >189 mg/dL, Very high Secondary prevention optimal LDL Cholesterol levels are recommended to be < 70 mg/dL Performed By: #### 2 4331-1, 51058-5, 22711-7 #### [facility] CLIA [id number] [address] [place] [address] [place] Cholesterol in LDL/Cholesterol in HDL [Mass ratio] 2.06 {ratio} Normal <2.54 [facility] Comment on above: Order Comment: Julius mayfield Type: BLOOD SPECIMEN Ordering Facility: [facility] Address: [address] [place] [address] Result Comment: Evelyn leger: 1. National Cholesterol Education Program ATP III Guideline At-A-Glance Quick Desk Reference: National Heart, Lung, and Blood Daniels. National Institutes of Health. 2001: NIH Publication No. 01-3305. 2. An International Atherosclerosis Society position paper: global recommendations for the management of dyslipidemia: executive summary, Atherosclerosis. 2014: 232(2):410-413. Performed By: #### 2 4331-1, , #### [facility] CLIA [id number] [address] [place] [address] [place] Cholesterol in VLDL [Mass/Vol] 19 mg/dL Normal <30 [facility] Comment on above: Order Comment: Julius mayfield Type: BLOOD SPECIMEN Ordering Facility: [facility] Address: [address] [place] [address] Performed By: #### 2 4331-1, , #### [facility] CLIA [id number] [address] [place] [address] [place] Cholesterol non HDL [Mass/Vol] 91 mg/dL Normal <130 [facility] Comment on above: Order Comment: Julius mayfield Type: BLOOD SPECIMEN Ordering Facility: [facility] Address: [address] [place] [address] Result Comment: <130 mg/dL, Optimal 130-159 mg/dL, Near optimal/above optimal 160-189 mg/dL, Borderline high 190-219 mg/dL, High >219 mg/dL, Very high Secondary prevention optimal non HDL Cholesterol levels are recommended to be <100 mg/dL Performed By: #### 2 4331-1, , #### [facility] CLIA [id number] [address] [place] [address] [place] Cholesterol.total/Lavern sterol in HDL [Mass ratio] 3.60 {ratio} Normal <5.10 [facility] Comment on above: Order Comment: Speci men Type: BLOOD SPECIMEN Ordering Facility: [facility] Address: [address] [place] [address] Performed By: #### 2 4331-1, , #### [facility] CLIA [id number] [address] [place] [address] [place] FASTING TIME 12 hrs Normal [facility] Comment on above: Order Comment: Speci men Type: BLOOD SPECIMEN Ordering Facility: [facility] Address: [address] [place] [address] Performed By: #### 2 4331-1, , #### [facility] CLIA [id number] [address] [place] [address] [place] Triglyceride [Mass/Vol] 93 mg/dL Normal <150 [facility] Comment on above: Order Comment: Speci men Type: BLOOD SPECIMEN Ordering Facility: [facility] Address: [address] [place] [address] Result Comment: <150 mg/dL, Normal 150-199 mg/dL, Borderline high 200-499 mg/dL, High >499 mg/dL, Very high Performed By: #### 2 4331-1, , #### [facility] CLIA [id number] [address] [place] [address] [place] [facility] Magn[facility] [Mass/Vol] 1.9 mg/dL Normal 1.7-2.3 [facility] Comment on above: Order Comment: Speci men Type: BLOOD SPECIMEN Ordering Facility: [facility] Address: [address] [place] [address] Performed By: #### 2 4331-1, , #### [facility] CLIA [id number] [address] [place], [place] [address] [facility] Jeromy 11-21-2024 CNPN Telephone (UCWSTR) DOLORES VILLA ([id number]) 1945 F Date Time Provider Department 11/21/24 JACLYN SPEARS [facility] During your visit today, we recorded the following information about you: Jaclyn Spears APRN.AARON 11/21/2024 8:55 AM Signed Patient notified that would culture positive for MRSA. She was seen by the [facility] and changed from doxycycline to keflex. Advised to stop keflex, and restart and complete doxycycline. Follow up with PCP prn Jaclyn Spears APRN.Waleska Trinh RN 11/21/2024 9:41 AM Signed Patient calls to request two swab tests completed on 11/18/[address] Matute at the [facility]. Faxed per request to [phone]. Waleska Ann RN Allergies As of Date: 11/21/2024 Noted Allergy Reaction ATIVAN (LORAZEPAM) 12/07/2005 14 - Other: See Comments Comments: family members had MS change BENZONATATE 04/26/2015 8 - GI Upset HCTZ (HYDROCHLOROTHIAZIDE) 12/10/2008 5 - Intolerance Comments: headache SEASONAL ALLERGIES 12/05/2012 14 - Other: See Comments Comments: Receiving allergy shots. SULFA (SULFONAMIDE ANTIBIOTICS) 12/07/2005 16 - Unknown Date Reviewed: 11/18/2024 Reviewed by: Kiya Guzmán MA - Fully Assessed Prescriptions as of 11/21/2024 - doxycycline (VIBRA-TABS) 100 mg tablet Take 1 tablet by mouth two times a day for 7 days. - isosorbide mononitrate ER (IMDUR) 60 mg 24 hr tablet Take 1 tablet by mouth once daily. - ELIQUIS 5 mg tab(s) Take 1 tablet by mouth two times a day. - amoxicillin (AMOXIL) 500 mg capsule Take by mouth. Take four tablets by mouth one hour prior to dental procedure - rosuvastatin (CRESTOR) 40 mg tablet Take 1 tablet by mouth daily at bedtime. - lisinopril (ZESTRIL) 10 mg tablet Take 1 tablet by mouth once daily. - glipiZIDE (GLUCOTROL) 5 mg tablet Take 1 tablet (5 mg) by mouth two times a day before meals. - metoprolol tartrate, short acting, (LOPRESSOR) 50 mg tablet Take 1 tablet by mouth two times a day. - levothyroxine (SYNTHROID) 75 mcg tablet Take 1 tablet by mouth once daily. - blood sugar diagnostic (BLOOD GLUCOSE TEST) test strip Test blood sugar(s) 1 time daily and as needed. Dx: Type 2 DM - Uncontrolled E11.9 Insulin: No - Blood Pressure Monitor (BLOOD PRESSURE KIT) 1 Each once daily as needed. - metFORMIN ER (GLUCOPHAGE XR) 500 mg 24 hr tablet Take 1 tablet by mouth two times a day with meals. As directed - omeprazole (PRILOSEC) 20 mg capsule Take 1 capsule by mouth daily before breakfast. 1/2 hr before meal. - cholecalciferol (VITAMIN D3) 50 mcg (2,000 unit) tablet Take 1 tablet by mouth once daily. - nitroglycerin sublingual (NITROQUICK) 0.4 mg SL tablet Dissolve 1 tablet under the tongue every 5 minutes as needed. As directed for chest pain. IF NO RELIEF CALL 911 - Lancets lancets Test blood sugar(s) 1 time daily and as needed. Dx: Type 2 DM - Uncontrolled E11.9 Insulin: No - ACETAMINOPHEN/DIPHENHYD RAMINE (TYLENOL PM EXTRA STRENGTH ORAL) Take by mouth every 8 hours as needed. - THERAPEUTIC MULTIVITAMIN TAB Take by mouth once daily. Problem List As Of Date 11/21/2024 Noted Resolved Hypothyroidism [E03.9] Mixed hyperlipidemia [E78.2] 06/15/2006 CERVICALGIA [M54.2] 06/30/2007 08/08/2007 OTHER HAMMER TOE [M20.40] 07/23/2008 JOINT PAIN-SHLDER [M25.519] 09/17/2008 Migraine [G43.909] 08/23/2009 11/19/2020 GERD (Gastroesophageal Reflux Disease) [K21.9] 11/13/2009 Occlusion and stenosis of carotid artery withou*01/03/2010 CAD (coronary artery disease) [I25.10] 07/30/2010 Diverticulitis of Colon [K57.32] 08/22/2010 SUMMARY [V999.95] 01/29/2011 09/26/2021 Postsurgical percutaneous transluminal coronary*02/04/2011 Esophagitis [K20.90] 04/03/2011 09/26/2021 Dupuytren's contracture [M72.0] 11/01/2012 Trigger ring finger of left hand [M65.342] 12/19/2012 Sacroiliitis, not elsewhere classified (HCC) [M*02/07/2013 05/17/2020 Thoracic and lumbosacral neuritis [M54.14, M54.*02/07/2013 History of lumbar laminectomy [Z98.890] 10/21/2015 Bulge of lumbar disc without myelopathy [M51.36*10/21/2015 Type 2 diabetes mellitus with stage 3a chronic *10/14/2016 Stage 3a chronic kidney disease (HCC) [N18.31] 10/14/2016 Trigger thumb of left hand [M65.312] 08/12/2017 11/26/2017 Trigger finger, right ring finger [M65.341] 08/08/2018 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 [K22.70] 09/20/2018 Chronic pain of left knee--since contusion [M25*10/06/2018 Thoracic aortic aneurysm without rupture (HCC) *08/26/2019 Hypertensive kidney disease with stage 3a chron*09/26/2021 Angina pectoris (HCC) [I20.9] 02/12/2023 07/18/2023 Essential (primary) hypertension [I10] 03/02/2022 History of left heart catheterization (LHC) [Z9*02/12/2023 PAF (paroxysmal atrial fibrillation) (HCC) [I48*02/12/2023 Presence of stent in coronary artery [Z95.5] 01/27/2011 Pure hypercholesterolemia [E78.00] (more content not included)... Normal [facility] CNPNon 11-19-2024 CNPN Telephone (UCWSTR) DOLORES VILLA ([id number]) 1945 F Date Time Provider Department 11/19/24 SARAH VALENCIA [facility] During your visit today, we recorded the following information about you: Elsy Bobby MA 11/19/2024 8:43 AM Signed ----- Message from Sarah Valencia APRN.INFORMATION CODER sent at 11/19/2024 8:19 AM EST ----- Please advise Dolores the herpes swab was negative. Follow instructions given by provider at visit, f/u with PCP if symptoms persist or worsen. Elsy Bobby MA 11/19/2024 8:45 AM Signed Left VM instructing patient to return call to receive results. Elsy Bobby MA Allergies As of Date: 11/19/2024 Noted Allergy Reaction ATIVAN (LORAZEPAM) 12/07/2005 14 - Other: See Comments Comments: family members had MS change BENZONATATE 04/26/2015 8 - GI Upset HCTZ (HYDROCHLOROTHIAZIDE) 12/10/2008 5 - Intolerance Comments: headache SEASONAL ALLERGIES 12/05/2012 14 - Other: See Comments Comments: Receiving allergy shots. SULFA (SULFONAMIDE ANTIBIOTICS) 12/07/2005 16 - Unknown Date Reviewed: 11/18/2024 Reviewed by: Kiya Guzmán MA - Fully Assessed Prescriptions as of 11/19/2024 - doxycycline (VIBRA-TABS) 100 mg tablet Take 1 tablet by mouth two times a day for 7 days. - isosorbide mononitrate ER (IMDUR) 60 mg 24 hr tablet Take 1 tablet by mouth once daily. - ELIQUIS 5 mg tab(s) Take 1 tablet by mouth two times a day. - amoxicillin (AMOXIL) 500 mg capsule Take by mouth. Take four tablets by mouth one hour prior to dental procedure - rosuvastatin (CRESTOR) 40 mg tablet Take 1 tablet by mouth daily at bedtime. - lisinopril (ZESTRIL) 10 mg tablet Take 1 tablet by mouth once daily. - glipiZIDE (GLUCOTROL) 5 mg tablet Take 1 tablet (5 mg) by mouth two times a day before meals. - metoprolol tartrate, short acting, (LOPRESSOR) 50 mg tablet Take 1 tablet by mouth two times a day. - levothyroxine (SYNTHROID) 75 mcg tablet Take 1 tablet by mouth once daily. - blood sugar diagnostic (BLOOD GLUCOSE TEST) test strip Test blood sugar(s) 1 time daily and as needed. Dx: Type 2 DM - Uncontrolled E11.9 Insulin: No - Blood Pressure Monitor (BLOOD PRESSURE KIT) 1 Each once daily as needed. - metFORMIN ER (GLUCOPHAGE XR) 500 mg 24 hr tablet Take 1 tablet by mouth two times a day with meals. As directed - omeprazole (PRILOSEC) 20 mg capsule Take 1 capsule by mouth daily before breakfast. 1/2 hr before meal. - cholecalciferol (VITAMIN D3) 50 mcg (2,000 unit) tablet Take 1 tablet by mouth once daily. - nitroglycerin sublingual (NITROQUICK) 0.4 mg SL tablet Dissolve 1 tablet under the tongue every 5 minutes as needed. As directed for chest pain. IF NO RELIEF CALL 911 - Lancets lancets Test blood sugar(s) 1 time daily and as needed. Dx: Type 2 DM - Uncontrolled E11.9 Insulin: No - ACETAMINOPHEN/DIPHENHYD RAMINE (TYLENOL PM EXTRA STRENGTH ORAL) Take by mouth every 8 hours as needed. - THERAPEUTIC MULTIVITAMIN TAB Take by mouth once daily. Problem List As Of Date 11/19/2024 Noted Resolved Hypothyroidism [E03.9] Mixed hyperlipidemia [E78.2] 06/15/2006 CERVICALGIA [M54.2] 06/30/2007 08/08/2007 OTHER HAMMER TOE [M20.40] 07/23/2008 JOINT PAIN-SHLDER [M25.519] 09/17/2008 Migraine [G43.909] 08/23/2009 11/19/2020 GERD (Gastroesophageal Reflux Disease) [K21.9] 11/13/2009 Occlusion and stenosis of carotid artery withou*01/03/2010 CAD (coronary artery disease) [I25.10] 07/30/2010 Diverticulitis of Colon [K57.32] 08/22/2010 SUMMARY [V999.95] 01/29/2011 09/26/2021 Postsurgical percutaneous transluminal coronary*02/04/2011 Esophagitis [K20.90] 04/03/2011 09/26/2021 Dupuytren's contracture [M72.0] 11/01/2012 Trigger ring finger of left hand [M65.342] 12/19/2012 Sacroiliitis, not elsewhere classified (HCC) [M*02/07/2013 05/17/2020 Thoracic and lumbosacral neuritis [M54.14, M54.*02/07/2013 History of lumbar laminectomy [Z98.890] 10/21/2015 Bulge of lumbar disc without myelopathy [M51.36*10/21/2015 Type 2 diabetes mellitus with stage 3a chronic *10/14/2016 Stage 3a chronic kidney disease (HCC) [N18.31] 10/14/2016 Trigger thumb of left hand [M65.312] 08/12/2017 11/26/2017 Trigger finger, right ring finger [M65.341] 08/08/2018 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 [K22.70] 09/20/2018 Chronic pain of left knee--since contusion [M25*10/06/2018 Thoracic aortic aneurysm without rupture (HCC) *08/26/2019 Hypertensive kidney disease with stage 3a chron*09/26/2021 Angina pectoris (HCC) [I20.9] 02/12/2023 07/18/2023 Essential (primary) hypertension [I10] 03/02/2022 History of left heart catheterization (LHC) [Z9*02/12/2023 PAF (paroxysmal atrial fibrillation) (HCC) [I48*02/12/2023 Presence of stent in coronary artery [Z95.5] 01/27/2011 Pure hypercholesterolemia [E78.00] 03/02/2022 Encounter Status:Closed by ELSY BOBBY on 10/30 (more content not included)... Normal [facility] Bacteria Wnd Culton 12-21-20 24 Bacteria identified Cx Nom (Wound) ORGANISM ID: 1 Few Methicillin-RESISTANT Staphylococcus aureus (MRSA) GRAM STAIN: No organisms seen No Polymorphonuclear Leukocytes ORGANISM ID: 1 (METHICILLIN RESISTANT STAPHYLOCOCCUS AUREUS) ANTIBIOTIC INTERPRETATION CECI STATUS REFERENCE RANGE Oxacillin R >=4 F Susceptible <=2 , Resistant >2 Oxacillin resistant Staphylococci are resistant to all beta-lactam antibiotics (except new cephalosporins with anti-MRSA activity i.e. ceftaroline) Erythromycin R >=8 F Susceptible <=0.5 , Intermediate >.5 , Resistant >4 Clindamycin R >=4 F Susceptible <=0.5 , Intermediate >.5 , Resistant >2 Trimeth sulfameth S <=10 F Susceptible <=40 , Resistant >40 Vancomycin S 1 F Susceptible <=2 , Intermediate >2 , Resistant >8 Daptomycin S 0.25 F Susceptible <=1 , Nonsusceptible >1 Linezolid S 2 F Susceptible <=4 , Resistant >4 Rifampin S <=0.5 F Susceptible <=1 , Intermediate >1 , Resistant >2 Rifampin should not be used alone for antimicrobial therapy. Levofloxacin S 0.25 F Susceptible <=1 , Intermediate >1 , Resistant >2 Fluoroquinolone resistance can develop in staphylococci during therapy. Initially susceptible isolates may become resistant within 3 days after initiation of therapy. Tetracycline S <=1 F Susceptible <=4 , Intermediate >4 , Resistant >8 Doxycycline S <=0.5 F Susceptible <=4 , Intermediate >4 , Resistant >8 Abnormal [facility] Comment on above: Performed By: #### 6 462-6 ####[facility] [id number] [facility] [place] [id number] [place] CNOVon 11-18-2024 CNOV Office Visit (UCWSTR ) DOLORES VILLA ([id number]) 1945 F Date Time Provider Department 11/18/24 2:30 PM ROEL ELKINS WSTR During your visit today, we recorded the following information about you: Temperature Pulse Respiration Blood pressure 98.5 degrees 100/minute 20/minute 112/82 Weight 56.7 kg Roel Elkins PA-C 11/18/2024 2:57 PM Signed This note was created using [employer]. Subjective Dolores Villa is a 79 year old female. HPI Patient presents with red bumps under her right eye over the past 3 days. She states they are itchy and painful. Denies any pain of her actual eyeball or redness of her eyeball. She had bumps in the groin area a few months ago and was treated with antibiotics. She states the got a little better but then did end up recurring. She then was treated again and they did get somewhat better. She had a negative HSV/VZV swab. Denies history of known MRSA. No fever or chills. Review of Systems HENT: Negative. Eyes: Right lower eyelid redness and swelling Respiratory: Negative. Cardiovascular: Negative. Gastrointestinal: Negative. Musculoskeletal: Negative. All other systems reviewed and are negative. PAST MEDICAL HISTORY Diagnosis Date Abdominal pain, left lower quadrant Abdominal pain, unspecified site 08/22/2010 Arthritis 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 09/20/2018 Added automatically from request for surgery [id number] Barretts esophagus EGD 2010 and 08/25/13 Bronchitis 07/30/2010 Pt was having cough with chest pain . -Was started on nebulisation and antibiotic at [facility]. -Symtoms better now. CAD (coronary artery disease) s/p PCI/CHRISTELLE to LAD with 2.75x15 Xience dilated to 3.4 Complication of anesthesia nausea, vomiting Controlled type 2 diabetes mellitus without complication, without long-term current use of insulin ([facility]) 10/14/2016 Contusion of shoulder region Diverticulitis of sigmoid colon 09/17/2010 Dupuytren's contracture 11/01/2012 left worse than right Enlargement of lymph nodes Esophageal reflux Esophagitis, unspecified 04/03/2011 Generalized osteoarthrosis, unspecified site History of colonic polyps 09/20/2018 Added automatically from request for surgery [id number] Hypertension Kidney disease Lichen sclerosus Migraine 08/23/2009 Migraine without aura, without mention of intractable migraine without mention of status migrainosus Pain in joint, shoulder region PONV (postoperative nausea and vomiting) Pure hypercholesterolemia Sciatica 10/09/2010 Sebaceous cyst 05/01/2015 Subacute thyroiditis Thoracic aortic aneurysm without rupture ([facility]) 08/26/2019 Trigger thumb of left hand 08/12/2017 Added automatically from request for surgery [id number] Surgery effective Unspecified hypothyroidism Current Outpatient Medications Medication Sig Dispense Refill isosorbide mononitrate ER (IMDUR) 60 mg 24 hr tablet Take 1 tablet by mouth once daily. 90 tablet 3 ELIQUIS 5 mg tab(s) Take 1 tablet by mouth two times a day. 180 tablet 3 rosuvastatin (CRESTOR) 40 mg tablet Take 1 tablet by mouth daily at bedtime. 90 tablet 3 lisinopril (ZESTRIL) 10 mg tablet Take 1 tablet by mouth once daily. 90 tablet 3 glipiZIDE (GLUCOTROL) 5 mg tablet Take 1 tablet (5 mg) by mouth two times a day before meals. 180 tablet 3 metoprolol tartrate, short acting, (LOPRESSOR) 50 mg tablet Take 1 tablet by mouth two times a day. 180 tablet 3 levothyroxine (SYNTHROID) 75 mcg tablet Take 1 tablet by mouth once daily. 90 tablet 3 blood sugar diagnostic (BLOOD GLUCOSE TEST) test strip Test blood sugar(s) 1 time daily and as needed. Dx: Type 2 DM - Uncontrolled E11.9 Insulin: No 50 Strip 11 Blood Pressure Monitor (BLOOD PRESSURE KIT) 1 Each once daily as needed. 1 Kit 0 metFORMIN ER (GLUCOPHAGE XR) 500 mg 24 hr tablet Take 1 tablet by mouth two times a day with meals. As directed 180 Each 3 omeprazole (PRILOSEC) 20 mg capsule Take 1 capsule by mouth daily before breakfast. 1/2 hr before meal. 90 Each 3 cholecalciferol (VITAMIN D3) 50 mcg (2,000 unit) tablet Take 1 tablet by mouth once daily. 90 tablet 3 nitroglycerin sublingual (NITROQUICK) 0.4 mg SL tablet Dissolve 1 tablet under the tongue every 5 minutes as needed. As directed for chest pain. IF NO RELIEF CALL 911 25 tablet 1 Lancets lancets Test blood sugar(s) 1 time daily and as needed. Dx: Type 2 DM - Uncontrolled E11.9 Insulin: No 100 Each 11 ACETAMINOPHEN/DIPHENHYD RAMINE (TYLENOL PM EXTRA STRENGTH ORAL) Take by mouth every 8 hours as needed. THERAPEUTIC MULTIVITAMIN TAB Take by mouth once daily. 0 doxycycline (VIBRA-TABS) 100 mg tablet Take 1 tablet by mouth two times a day for 7 days. 14 tablet 0 amoxicillin (AMOXIL) 500 mg capsule Take by mouth. Take four tablets by mouth one hour prior to dental procedure (Patient not taking: Reported on 11/18/2024) 4 capsule 1 No cu (more content not included)... Normal [facility] HSV+VZV DNA SHAUNA+probe Ql (Un sp spec)on 11-18-2024 HSV 1 DNA SHAUNA+probe Ql (Unsp spec) Not detected Normal Not Detected [facility] Comment on above: Order Comment: Speci men Type: SWABOrdering Facility: [facility] Address: [address] [place] [address] Performed By: #### 3 3027-4 ####[facility]IA [id number] [place] [address] [place] HSV 2 DNA SHAUNA+probe Ql (Unsp spec) Not detected Normal Not Detected [facility] Comment on above: Order Comment: Speci men Type: SWABOrdering Facility: [facility] Address: [address] [place] [address] Performed By: #### 3 3027-4 ####[facility]IA [id number] [place] [address] [place] VZV DNA SHAUNA+probe Ql (Unsp spec) Not detected Normal Not Detected [facility] Comment on above: Order Comment: Speci men Type: SWABOrdering Facility: [facility] Address: [address] [place] [address] Performed By: #### 3 3027-4 ####[facility]CLIA [id number] [address] [facility] Jeromy 10-09-2024 LOGAN Telephone (OBGYWM) DOLORES VILLA ([id number]) 1945 F Date Time Provider Department 10/09/24 CAYLA HOFFMAN OBGYWM During your visit today, we recorded the following information about you: Nasreen Wise RN 10/09/2024 12:34 PM Signed Patient calling stating she has vaginal lumps again. She currently has 5 large ones and 5 small ones that have been present x 2 weeks. Patient states one did burst but now is closed and filled with fluid again. Patient states are is painful and hurts to sit or stand. Patient was last seen in office on 09/11 for this and was prescribed Keflex. Patient wanting to know if she can be prescribed something again or does she need to be evaluated first. HELEN Leslie Renee, APRN.CNP 10/09/2024 12:53 PM Signed I will send in some clindamycin, if she is not seeing any improvement after 48 hrs she will need to be seen. GURWINDER Orta Renee, APRN.CNP 10/09/2024 12:54 PM Signed Addended by: CAYLA HOFFMAN on: 10/09/2024 12:54 PM Modules accepted: Orders Nasreen Wise RN 10/09/2024 1:43 PM Addendum Patient notified and voiced understanding of below. Nasreen Wise RN Allergies As of Date: 10/09/2024 Noted Allergy Reaction ATIVAN (LORAZEPAM) 12/07/2005 14 - Other: See Comments Comments: family members had MS change BENZONATATE 04/26/2015 8 - GI Upset HCTZ (HYDROCHLOROTHIAZIDE) 12/10/2008 5 - Intolerance Comments: headache SEASONAL ALLERGIES 12/05/2012 14 - Other: See Comments Comments: Receiving allergy shots. SULFA (SULFONAMIDE ANTIBIOTICS) 12/07/2005 16 - Unknown Date Reviewed: 09/11/2024 Reviewed by: Sylvia Estrada LPN - Fully Assessed Reason for Visit: vaginal lumps [Other] Order(s):clindamycin (CLEOCIN) 300 mg capsuleTake 1 capsule by mouth two times a day for 7 days.Disp: 14 capsuleRfl: 0 Prescriptions as of 10/09/2024 - clindamycin (CLEOCIN) 300 mg capsule Take 1 capsule by mouth two times a day for 7 days. - ELIQUIS 5 mg tab(s) Take 1 tablet by mouth two times a day. - amoxicillin (AMOXIL) 500 mg capsule Take by mouth. Take four tablets by mouth one hour prior to dental procedure - rosuvastatin (CRESTOR) 40 mg tablet Take 1 tablet by mouth daily at bedtime. - lisinopril (ZESTRIL) 10 mg tablet Take 1 tablet by mouth once daily. - glipiZIDE (GLUCOTROL) 5 mg tablet Take 1 tablet (5 mg) by mouth two times a day before meals. - metoprolol tartrate, short acting, (LOPRESSOR) 50 mg tablet Take 1 tablet by mouth two times a day. - levothyroxine (SYNTHROID) 75 mcg tablet Take 1 tablet by mouth once daily. - blood sugar diagnostic (BLOOD GLUCOSE TEST) test strip Test blood sugar(s) 1 time daily and as needed. Dx: Type 2 DM - Uncontrolled E11.9 Insulin: No - Blood Pressure Monitor (BLOOD PRESSURE KIT) 1 Each once daily as needed. - metFORMIN ER (GLUCOPHAGE XR) 500 mg 24 hr tablet Take 1 tablet by mouth two times a day with meals. As directed - omeprazole (PRILOSEC) 20 mg capsule Take 1 capsule by mouth daily before breakfast. 1/2 hr before meal. - cholecalciferol (VITAMIN D3) 50 mcg (2,000 unit) tablet Take 1 tablet by mouth once daily. - nitroglycerin sublingual (NITROQUICK) 0.4 mg SL tablet Dissolve 1 tablet under the tongue every 5 minutes as needed. As directed for chest pain. IF NO RELIEF CALL 911 - isosorbide mononitrate ER (IMDUR) 60 mg 24 hr tablet Take 1 tablet by mouth once daily. - Lancets lancets Test blood sugar(s) 1 time daily and as needed. Dx: Type 2 DM - Uncontrolled E11.9 Insulin: No - ACETAMINOPHEN/DIPHENHYD RAMINE (TYLENOL PM EXTRA STRENGTH ORAL) Take by mouth every 8 hours as needed. - THERAPEUTIC MULTIVITAMIN TAB Take by mouth once daily. Problem List As Of Date 10/09/2024 Noted Resolved Hypothyroidism [E03.9] Mixed hyperlipidemia [E78.2] 06/15/2006 CERVICALGIA [M54.2] 06/30/2007 08/08/2007 OTHER HAMMER TOE [M20.40] 07/23/2008 JOINT PAIN-SHLDER [M25.519] 09/17/2008 Migraine [G43.909] 08/23/2009 11/19/2020 GERD (Gastroesophageal Reflux Disease) [K21.9] 11/13/2009 Occlusion and stenosis of carotid artery withou*01/03/2010 CAD (coronary artery disease) [I25.10] 07/30/2010 Diverticulitis of Colon [K57.32] 08/22/2010 SUMMARY [V999.95] 01/29/2011 09/26/2021 Postsurgical percutaneous transluminal coronary*02/04/2011 Esophagitis [K20.90] 04/03/2011 09/26/2021 Dupuytren's contracture [M72.0] 11/01/2012 Trigger ring finger of left hand [M65.342] 12/19/2012 Sacroiliitis, not elsewhere classified (HCC) [M*02/07/2013 05/17/2020 Thoracic and lumbosacral neuritis [M54.14, M54.*02/07/2013 History of lumbar laminectomy [Z98.890] 10/21/2015 Bulge of lumbar disc without myelopathy [M51.36*10/21/2015 Type 2 diabetes mellitus with stage 3a chronic *10/14/2016 Stage 3a chronic kidney disease (HCC) [N18.31] 10/14/2016 Trigger thumb of left hand [M65.312] 08/12/2017 11/26/2017 (more content not included)... Normal [facility] Echo, Limited Studyon 2023 Echo, Limited Study [facility] [address] [place] [address] Echo, Limited Study 09/27/24 1302 MR#: [id number] Acct: [id number] Name: DOLORES VILLA Rep #: [id number] : 1945 78 From: Tae Capellan MD Attending Dr: CHAKA Linares Status: REG I Ordering Dr: Elisha Gutierrez Date: 08/31 Location: [facility] Sex: F C Admitted: Reason For Study: PERICARDIAL EFFUSION Procedure This was a limited 2D transthoracic echocardiogram. Exam performed in department. Left Ventricle Mild left ventricular concentric hypertrophy. Mild generalized hypokinesis. Estimated EF 45%. Right Ventricle Mildly dilated right ventricle. Normal systolic function. Atria There is severe biatrial dilatation. Mitral Valve Mild (1+) mitral valve insufficiency. Tricuspid Valve Severe (4+) tricuspid valve insufficiency. Right ventricular systolic pressure estimated to be 41 mmHg. Aortic Valve Trisinus/trileaflet aortic valve. Pulmonic Valve The pulmonic valve is not well visualized. Great Vessels The inferior vena cava is dilated. Pericardium/Pleural Trivial pericardial effusion. MMode/2D Measurements Calculations LVIDd: 3.1 cm IVSd: 1.5 cm LAV(MOD-bp): 54.3 ml LVIDs: 2.2 cm LVPWd: 1.5 cm LAV(MOD-bp) Indexed: 35.7 ml/m2 RVDd: 3.9 cm FS: 29.2 % LAV(MOD-sp2): 55.9 ml LAV(MOD-sp4): 51.9 ml SV(MOD-sp4): 14.5 ml LVAd ap4: 15.7 cm2 LVAd ap2: 16.3 cm2 LVLd ap4: 6.4 cm LVLd ap2: 6.4 cm SI(MOD-sp4): 9.5 ml/m2 EDV(MOD-sp4): 31.9 ml EDV(MOD-sp2): 34.2 ml EDV(sp4-el): 32.6 ml EDV(sp2-el): 35.4 ml LVAs ap4: 11.1 cm2 LVAs ap2: 11.0 cm2 LVLs ap4: 5.8 cm LVLs ap2: 5.8 cm ESV(MOD-sp4): 17.4 ml ESV(MOD-sp2): 18.0 ml ESV(sp4-el): 18.1 ml ESV(sp2-el): 17.7 ml EF(MOD-sp4): 45.5 % EF(MOD-sp2): 47.5 % EF(sp4-el): 44.6 % SV(MOD-sp2): 16.3 ml SV(sp4-el): 14.5 ml Ao sinus diam: 2.8 cm SI(MOD-sp2): 10.7 ml/m2 LA dimension(2D): 4.4 cm LA A4 area: 20.0 cm2 RA A4 area: 20.4 cm2 TAPSE: 0.83 cm Doppler Measurements Calculations Lat Peak E' Evie: 7.7 cm/sec Med Peak E' Evie: 7.3 cm/sec TR max evie: 255.9 cm/sec TR max P.2 mmHg ECHO/Echo, Limited Study Interpretation Summary Mild left ventricular concentric hypertrophy. Mild generalized hypokinesis. Estimated EF 45%. Mildly dilated right ventricle. There is severe biatrial dilatation. Mild (1+) mitral valve insufficiency. Severe (4+) tricuspid valve insufficiency. Right ventricular systolic pressure estimated to be 41 mmHg. Trivial pericardial effusion. Ordering Physician: Elisha Gutierrez Referring Physician: Matthew Spencer M.D. Performed By: Joana Salvador RDCS 09/28/241633 Date Tae Capellan MD CC: Dr. Matthew Spencer MD; CHAKA Linares Date Dictated: 09/27/24 1302 Date Transcribed: 09/28/241633 [employer]apping Machine Operator: [facility] LABORATORYOrdered By: Dalton Figueroa on 01-14-2024 Blood Glucose Testing Reason Routine (01/14/24 11:36 AM) [facility] Work Phone: Glucose [Mass/Vol] 287 mg/dL High 82 - 115 mg/dL [facility] Work Phone: LABORATORYOrdered By: Attila Clark on 01-14-2024 Blood Glucose Testing Reason Routine (01/14/24 7:59 AM) [facility] Work Phone: Glucose [Mass/Vol] 183 mg/dL High 82 - 115 mg/dL [facility] Work Phone: .Auto Diffon 01-13-2024 Basophil, Absolute 0.1 10 3/mcL Normal 0.0-0.2 [facility] ([place]) Comment on above: Performed By: #### B MP, ANEU, CBC, GFR, ADIFF #### [address] [address] Basophils/100 WBC (Bld) 0.4 % Normal 0.0-2.5 A [facility] ([place]) Comment on above: Performed By: #### B MP, ANEU, CBC, GFR, ADIFF #### [address] [address] Eosinophil, Absolute 0.1 10 3/mcL Normal 0.0-0.4 [facility] ([place]) Comment on above: Performed By: #### B MP, ANEU, CBC, GFR, ADIFF #### [address] [address] Eosinophils/100 WBC (Bld) 0.3 % Normal 0.0-7.0 [facility] ([place]) Comment on above: Performed By: #### B MP, ANEU, CBC, GFR, ADIFF #### [address] [address] Lymphocyte, Absolute 0.7 10 3/mcL Low 0.8-3.9 [facility] ([place]) Comment on above: Performed By: #### B MP, ANEU, CBC, GFR, ADIFF #### [address] [address] Lymphocytes/100 WBC (Bld) 4.4 % Low 10.0-50.0 [facility] ([place]) Comment on above: Performed By: #### B MP, ANEU, CBC, GFR, ADIFF #### [address] [address] Monocyte, Absolute 1.5 10 3/mcL High 0.2-1.0 [facility] ([place]) Comment on above: Performed By: #### B MP, ANEU, CBC, GFR, ADIFF #### [address] [address] Monocytes/100 WBC (Bld) 10.4 % Normal 1.7-13.0 A [facility] ([place]) Comment on above: Performed By: #### B MP, ANEU, CBC, GFR, ADIFF #### [address] [address] Neutrophils/100 WBC (Bld) 84.5 % High 37.0-80.0 [facility] ([place]) Comment on above: Performed By: #### B MP, ANEU, CBC, GFR, ADIFF #### [address] [address] .GFRon 01-13-2024 GFR 40 ml/min/1.73sqm Normal [facility] ([place]) Comment on above: Result Comment: GFR Population mean for , Non- Americans Ages 20-29 = 116 mL/min/1.73 sq.m. Ages 30-39 = 107 mL/min/1.73 sq.m. Ages 40-49 = 99 mL/min/1.73 sq.m. Ages 50-59 = 93 mL/min/1.73 sq.m. Ages 60-69 = 85 mL/min/1.73 sq.m. Ages 70+ = 75 mL/min/1.73 sq.m. Chronic Kidney Disease: Less than 60 mL/min/1.73 square meters End Stage Renal Disease: Less than 15 mL/min/1.73 square meters Performed By: #### B MP, ANEU, CBC, GFR, ADIFF #### [address] [address] GFR Non- 33 ml/min/1.73sqm Normal [facility] ([place]) Comment on above: Result Comment: GFR Population mean for , Non- Americans Ages 20-29 = 116 mL/min/1.73 sq.m. Ages 30-39 = 107 mL/min/1.73 sq.m. Ages 40-49 = 99 mL/min/1.73 sq.m. Ages 50-59 = 93 mL/min/1.73 sq.m. Ages 60-69 = 85 mL/min/1.73 sq.m. Ages 70+ = 75 mL/min/1.73 sq.m. Chronic Kidney Disease: Less than 60 mL/min/1.73 square meters End Stage Renal Disease: Less than 15 mL/min/1.73 square meters Performed By: #### B MP, ANEU, CBC, GFR, ADIFF #### [address] [address] .NEUABSon 01-13-2024 Neutrophil, Absolute 12.5 10 3/mcL High 2.9-6.2 A [facility] ([place]) Comment on above: Performed By: #### B MP, ANEU, CBC, GFR, ADIFF #### [address] [address] BMPon 01-13-2024 BUN/Creatinine Ratio 16 ratio Normal 7-27 [facility] ([place]) Comment on above: Performed By: #### B MP, ANEU, CBC, GFR, ADIFF #### [address] [address] Calcium [Mass/Vol] 8.5 mg/dL Normal 8.4-10.2 [facility] ([place]) Comment on above: Performed By: #### B MP, ANEU, CBC, GFR, ADIFF #### [address] [address] Chloride [Moles/Vol] 100 mmol/L Normal 98-107 [facility] ([place]) Comment on above: Performed By: #### B MP, ANEU, CBC, GFR, ADIFF #### [address] [address] CO2 [Moles/Vol] 25 mmol/L Normal 23-31 [facility] ([place]) Comment on above: Performed By: #### B MP, ANEU, CBC, GFR, ADIFF #### [address] [address] Creatinine [Mass/Vol] 1.51 mg/dL High 0.55-1.02 [facility] ([place]) Comment on above: Performed By: #### B MP, ANEU, CBC, GFR, ADIFF #### [address] [address] Electrolyte Balance 11.0 mEq/L Normal 4.0-15.0 [facility] ([place]) Comment on above: Performed By: #### B MP, ANEU, CBC, GFR, ADIFF #### [address] [address] Glucose [Mass/Vol] 252 mg/dL High 83-110 [facility] ([place]) Comment on above: Performed By: #### B MP, ANEU, CBC, GFR, ADIFF #### [address] [address] Potassium [Moles/Vol] 4.4 mmol/L Normal 3.5-5.1 [facility] ([place]) Comment on above: Performed By: #### B MP, ANEU, CBC, GFR, ADIFF #### [address] [address] Sodium [Moles/Vol] 136 mmol/L Normal 136-145 [facility] ([place]) Comment on above: Performed By: #### B MP, ANEU, CBC, GFR, ADIFF #### [address] [address] Urea nitrogen [Mass/Vol] 24 mg/dL High 7-18 [facility] ([place]) Comment on above: Performed By: #### B MP, ANEU, CBC, GFR, ADIFF #### [address] [address] CBCon 01-13-2024 Erythrocyte distribution width (RBC) [Ratio] 15.8 % High 11.5-14.5 [facility] ([place]) Comment on above: Performed By: #### B MP, ANEU, CBC, GFR, ADIFF #### [address] [address] Hematocrit (Bld) [Volume fraction] 28.8 % Low 37.0-47.0 [facility] ([place]) Comment on above: Performed By: #### B MP, ANEU, CBC, GFR, ADIFF #### [address] [address] Hgb 9.7 G/dL Low 12.0-16.0 [facility] ([place]) Comment on above: Performed By: #### B MP, ANEU, CBC, GFR, ADIFF #### [address] [address] MCH (RBC) [Entitic mass] 31.8 pg High 27.0-31.2 [facility] ([place]) Comment on above: Performed By: #### B MP, ANEU, CBC, GFR, ADIFF #### [address] [address] MCHC 33.9 G/dL Normal 33.0-37.0 [facility] ([place]) Comment on above: Performed By: #### B MP, ANEU, CBC, GFR, ADIFF #### [address] [address] MCV (RBC) [Entitic vol] 93.8 fL Normal 80.0-94.0 A [facility] ([place]) Comment on above: Performed By: #### B MP, ANEU, CBC, GFR, ADIFF #### [address] [address] Platelet 195 10 3/mcL Normal 130-400 [facility] ([place]) Comment on above: Performed By: #### B MP, ANEU, CBC, GFR, ADIFF #### [address] [address] Platelet mean volume (Bld) [Entitic vol] 9.1 fL Normal 7.4-10.4 [facility] ([place]) Comment on above: Performed By: #### B MP, ANEU, CBC, GFR, ADIFF #### [facility] [address] [place], [place] [address] RBC 3.07 10 6/mcL Low 4.20-5.40 [facility] ([place] Comment on above: Performed By: #### B MP, ANEU, CBC, GFR, ADIFF #### [facility] [address] [place], [place] [address] WBC 14.8 10 3/mcL High 4.6-10.8 [facility] ([place]) Comment on above: Performed By: #### B MP, ANEU, CBC, GFR, ADIFF #### [facility] [address] [place], [place] [address] LABORATORYOrdered By: Tanner Centeno on 01-13-2024 Blood Glucose Testing Reason Routine (01/13/24 9:29 PM) [facility] Work Phone: Glucose [Mass/Vol] 195 mg/dL High 82 - 115 mg/dL [facility] Work Phone: LABORATORYOrdered By: SYSTEM SYSTEM on 01-13-2024 Basophil, Absolute 0.1 103/mcL Normal 0.0 - 0.2 10^3/mcL AO Workflow SS Basophils/100 WBC (Bld) 0.4 % Normal 0.0 - 2.5 % AO Workflow SS Calcium [Mass/Vol] 8.5 mg/dL Normal 8.4 - 10. 2 mg/dL AO ADM SS Chloride [Moles/Vol] 100 mmol/L Normal 98 - 10 7 mmol/L AO ADM SS CO2 [Moles/Vol] 25 mmol/L Normal 23 - 31 mmol/L AO ADM SS Creatinine [Mass/Vol] 1.51 mg/dL High 0.55 - 1.02 mg/dL AO ADM SS Electrolyte Balance 11.0 mEq/L Normal 4.0 - 15 .0 mEq/L AO ADM SS Eosinophil, Absolute 0.1 103/mcL Normal 0.0 - 0 .4 10^3/mcL AO Workflow SS Eosinophils/100 WBC (Bld) 0.3 % Normal 0.0 - 7.0 % AO Workflow SS Erythrocyte distribution width (RBC) [Ratio] 15.8 % High 11.5 - 14.5 % AO Workflow SS GFR/1.73 sq M.predicted among blacks MDRD (S/P/Bld) [Vol rate/Area] 40 ml/min/1.73sqm Invalid Interpretation Code AO Chemistry S Comment on above: Interpretive Data: GFR Population mean for , Non- Americans Ages 20-29 = 116 mL/min/1.73 sq.m. Ages 30-39 = 107 mL/min/1.73 sq.m. Ages 40-49 = 99 mL/min/1.73 sq.m. Ages 50-59 = 93 mL/min/1.73 sq.m. Ages 60-69 = 85 mL/min/1.73 sq.m. Ages 70+ = 75 mL/min/1.73 sq.m. Chronic Kidney Disease: Less than 60 mL/min/1.73 square meters End Stage Renal Disease: Less than 15 mL/min/1.73 square meters GFR/1.73 sq M.predicted among non-blacks MDRD (S/P/Bld) [Vol rate/Area] 33 ml/min/1.73sqm Invalid Interpretation Code AO Chemistry S Comment on above: Interpretive Data: GFR Population mean for , Non- Americans Ages 20-29 = 116 mL/min/1.73 sq.m. Ages 30-39 = 107 mL/min/1.73 sq.m. Ages 40-49 = 99 mL/min/1.73 sq.m. Ages 50-59 = 93 mL/min/1.73 sq.m. Ages 60-69 = 85 mL/min/1.73 sq.m. Ages 70+ = 75 mL/min/1.73 sq.m. Chronic Kidney Disease: Less than 60 mL/min/1.73 square meters End Stage Renal Disease: Less than 15 mL/min/1.73 square meters Glucose [Mass/Vol] 252 mg/dL High 83 - 110 mg/dL AO ADM SS Hematocrit (Bld) [Volume fraction] 28.8 % Low 37.0 - 47.0 % AO Workflow SS Hemoglobin (Bld) [Mass/Vol] 9.7 G/dL Low 12.0 - 16.0 G/dL AO Workflow SS Lymphocyte, Absolute 0.7 103/mcL Low 0.8 - 3 .9 10^3/mcL AO Workflow SS Lymphocytes/100 WBC (Bld) 4.4 % Low 10.0 - 50.0 % AO Workflow SS MCH (RBC) [Entitic mass] 31.8 pg High 27.0 - 31.2 pg AO Workflow SS MCHC 33.9 G/dL Normal 33.0 - 37.0 G/dL AO Workflow SS MCV (RBC) [Entitic vol] 93.8 fL Normal 80.0 - 94.0 fL AO Workflow SS Monocyte, Absolute 1.5 103/mcL High 0.2 - 1.0 10^3/mcL AO Workflow SS Monocytes/100 WBC (Bld) 10.4 % Normal 1.7 - 13.0 % AO Workflow SS Neutrophil, Absolute 12.5 103/mcL High 2.9 - 6 .2 10^3/mcL AO Workflow SS Neutrophils/100 WBC (Bld) 84.5 % High 37.0 - 80.0 % AO Workflow SS Platelet mean volume (Bld) [Entitic vol] 9.1 fL Normal 7.4 - 10.4 fL AO Workflow SS Platelets (Bld) [#/Vol] 195 103/mcL Normal 130 - 400 10^3/mcL AO Workflow SS Potassium [Moles/Vol] 4.4 mmol/L Normal 3.5 - 5.1 mmol/L AO ADM SS RBC (Bld) [#/Vol] 3.07 106/mcL Low 4.20 - 5.4 0 10^6/mcL AO Workflow SS Sodium [Moles/Vol] 136 mmol/L Normal 136 - 145 mmol/L AO ADM SS Urea nitrogen [Mass/Vol] 24 mg/dL High 7 - 18 mg/dL AO ADM SS Urea nitrogen/Creatinine [Mass ratio] 16 ratio Normal 7 - 27 ratio AO ADM SS WBC (Bld) [#/Vol] 14.8 103/mcL High 4.6 - 10.8 10^3/mcL AO Workflow SS .Auto Diffon 01-12-2024 Basophil, Absolute 0.0 10 3/mcL Normal 0.0-0.2 [facility] ([place]) Comment on above: Performed By: #### A BRENDAN, BMP, GFR, ADIFF, CBC #### Yolanda [address] [address] Basophils/100 WBC (Bld) 0.3 % Normal 0.0-2.5 A [facility] ([place]) Comment on above: Performed By: #### A BRENDAN, BMP, GFR, ADIFF, CBC #### [address] [address] Eosinophil, Absolute 0.0 10 3/mcL Normal 0.0-0.4 [facility] ([place]) Comment on above: Performed By: #### A BRENDAN, BMP, GFR, ADIFF, CBC #### [address] [address] Eosinophils/100 WBC (Bld) 0.1 % Normal 0.0-7.0 [facility] ([place]) Comment on above: Performed By: #### A BRENDAN, BMP, GFR, ADIFF, CBC #### [address] [address] Lymphocyte, Absolute 0.9 10 3/mcL Normal 0.8-3.9 [facility] ([place]) Comment on above: Performed By: #### A BRENDAN, BMP, GFR, ADIFF, CBC #### [address] [address] Lymphocytes/100 WBC (Bld) 6.2 % Low 10.0-50.0 [facility] ([place]) Comment on above: Performed By: #### A BRENDAN, BMP, GFR, ADIFF, CBC #### [address] [address] Monocyte, Absolute 1.9 10 3/mcL High 0.2-1.0 [facility] ([place]) Comment on above: Performed By: #### A BRENDAN, BMP, GFR, ADIFF, CBC #### [address] [address] Monocytes/100 WBC (Bld) 12.9 % Normal 1.7-13.0 A [facility] ([place]) Comment on above: Performed By: #### A BRENDAN, BMP, GFR, ADIFF, CBC #### [address] [address] Neutrophils/100 WBC (Bld) 80.5 % High 37.0-80.0 [facility] ([place]) Comment on above: Performed By: #### A BRENDAN, BMP, GFR, ADIFF, CBC #### [address] [address] .GFRon 01-12-2024 GFR Non- 28 ml/min/1.73sqm Normal [facility] ([place]) Comment on above: Result Comment: GFR Population mean for , Non- Americans Ages 20-29 = 116 mL/min/1.73 sq.m. Ages 30-39 = 107 mL/min/1.73 sq.m. Ages 40-49 = 99 mL/min/1.73 sq.m. Ages 50-59 = 93 mL/min/1.73 sq.m. Ages 60-69 = 85 mL/min/1.73 sq.m. Ages 70+ = 75 mL/min/1.73 sq.m. Chronic Kidney Disease: Less than 60 mL/min/1.73 square meters End Stage Renal Disease: Less than 15 mL/min/1.73 square meters Performed By: #### A BRENDAN, BMP, GFR, ADIFF, CBC #### [address] [address] GFR 34 ml/min/1.73sqm Normal [facility] ([place]) Comment on above: Result Comment: GFR Population mean for , Non- Americans Ages 20-29 = 116 mL/min/1.73 sq.m. Ages 30-39 = 107 mL/min/1.73 sq.m. Ages 40-49 = 99 mL/min/1.73 sq.m. Ages 50-59 = 93 mL/min/1.73 sq.m. Ages 60-69 = 85 mL/min/1.73 sq.m. Ages 70+ = 75 mL/min/1.73 sq.m. Chronic Kidney Disease: Less than 60 mL/min/1.73 square meters End Stage Renal Disease: Less than 15 mL/min/1.73 square meters Performed By: #### A BRENDAN, BMP, GFR, ADIFF, CBC #### [address] [address] .NEUABSon 01-12-2024 Neutrophil, Absolute 12.0 10 3/mcL High 2.9-6.2 A [facility] ([place]) Comment on above: Performed By: #### A BRENDAN, BMP, GFR, ADIFF, CBC #### [address] [address] BMPon 01-12-2024 BUN/Creatinine Ratio 16 ratio Normal 7-27 [facility] ([place]) Comment on above: Performed By: #### A BRENDAN, BMP, GFR, ADIFF, CBC #### [address] [address] Calcium [Mass/Vol] 8.9 mg/dL Normal 8.4-10.2 [facility] ([place]) Comment on above: Performed By: #### A BRENDAN, BMP, GFR, ADIFF, CBC #### [address] [address] Chloride [Moles/Vol] 103 mmol/L Normal 98-107 [facility] ([place]) Comment on above: Performed By: #### A BRENDAN, BMP, GFR, ADIFF, CBC #### [address] [address] CO2 [Moles/Vol] 25 mmol/L Normal 23-31 [facility] ([place]) Comment on above: Performed By: #### A BRENDAN, BMP, GFR, ADIFF, CBC #### [address] [address] Creatinine [Mass/Vol] 1.77 mg/dL High 0.55-1.02 [facility] ([place]) Comment on above: Performed By: #### A BRENDAN, BMP, GFR, ADIFF, CBC #### [address] [address] Electrolyte Balance 11.0 mEq/L Normal 4.0-15.0 [facility] ([place]) Comment on above: Performed By: #### A BRENDAN, BMP, GFR, ADIFF, CBC #### [address] [address] Glucose [Mass/Vol] 195 mg/dL High 83-110 [facility] ([place]) Comment on above: Performed By: #### A BRENDAN, BMP, GFR, ADIFF, CBC #### [address] [address] Potassium [Moles/Vol] 4.7 mmol/L Normal 3.5-5.1 [facility] ([place]) Comment on above: Performed By: #### A BRENDAN, BMP, GFR, ADIFF, CBC #### [address] [address] Sodium [Moles/Vol] 139 mmol/L Normal 136-145 [facility] ([place]) Comment on above: Performed By: #### A BRENDAN, BMP, GFR, ADIFF, CBC #### [address] [address] Urea nitrogen [Mass/Vol] 28 mg/dL High 7-18 [facility] ([place]) Comment on above: Performed By: #### A BRENDAN, BMP, GFR, ADIFF, CBC #### [address] [address] CBCon 01-12-2024 Erythrocyte distribution width (RBC) [Ratio] 15.9 % High 11.5-14.5 [facility] ([place]) Comment on above: Performed By: #### A BRENDAN, BMP, GFR, ADIFF, CBC #### [address] [address] Hematocrit (Bld) [Volume fraction] 28.3 % Low 37.0-47.0 [facility] ([place]) Comment on above: Performed By: #### A BRENDAN, BMP, GFR, ADIFF, CBC #### [address] [address] Hgb 9.7 G/dL Low 12.0-16.0 [facility] ([place]) Comment on above: Performed By: #### A BRENDAN, BMP, GFR, ADIFF, CBC #### [address] [address] MCH (RBC) [Entitic mass] 32.0 pg High 27.0-31.2 [facility] ([place]) Comment on above: Performed By: #### A BRENDAN, BMP, GFR, ADIFF, CBC #### [address] [address] MCHC 34.1 G/dL Normal 33.0-37.0 [facility] ([place] Comment on above: Performed By: #### A BRENDAN, BMP, GFR, ADIFF, CBC #### [address] [address] MCV (RBC) [Entitic vol] 93.8 fL Normal 80.0-94.0 A [facility] ([place]) Comment on above: Performed By: #### A BRENDAN, BMP, GFR, ADIFF, CBC #### [address] [address] Platelet 193 10 3/mcL Normal 130-400 [facility] ([place]) Comment on above: Performed By: #### A BRENDAN, BMP, GFR, ADIFF, CBC #### [place] [address]87 Platelet mean volume (Bld) [Entitic vol] 9.2 fL Normal 7.4-10.4 [facility] ([place]) Comment on above: Performed By: #### A BRENDAN, BMP, GFR, ADIFF, CBC #### [address] [address] RBC 3.02 10 6/mcL Low 4.20-5.40 [facility] ([place] Comment on above: Performed By: #### A BRENDAN, BMP, GFR, ADIFF, CBC #### [address] [address] WBC 14.9 10 3/mcL High 4.6-10.8 [facility] ([place]) Comment on above: Performed By: #### A BRENDAN, BMP, GFR, ADIFF, CBC #### [address] [address] LABORATORYOrdered By: SYSTEM SYSTEM on 01-12-2024 Magnesium [Mass/Vol] 1.9 mg/dL Normal 1.8 - 2 .4 mg/dL AO ADM SS Basophil, Absolute 0.0 103/mcL Normal 0.0 - 0.2 10^3/mcL AO Workflow SS Basophils/100 WBC (Bld) 0.3 % Normal 0.0 - 2.5 % AO Workflow SS Calcium [Mass/Vol] 8.9 mg/dL Normal 8.4 - 10. 2 mg/dL AO ADM SS Chloride [Moles/Vol] 103 mmol/L Normal 98 - 10 7 mmol/L AO ADM SS CO2 [Moles/Vol] 25 mmol/L Normal 23 - 31 mmol/L AO ADM SS Creatinine [Mass/Vol] 1.77 mg/dL High 0.55 - 1.02 mg/dL AO ADM SS Electrolyte Balance 11.0 mEq/L Normal 4.0 - 15 .0 mEq/L AO ADM SS Eosinophil, Absolute 0.0 103/mcL Normal 0.0 - 0 .4 10^3/mcL AO Workflow SS Eosinophils/100 WBC (Bld) 0.1 % Normal 0.0 - 7.0 % AO Workflow SS Erythrocyte distribution width (RBC) [Ratio] 15.9 % High 11.5 - 14.5 % AO Workflow SS GFR/1.73 sq M.predicted among blacks MDRD (S/P/Bld) [Vol rate/Area] 34 ml/min/1.73sqm Invalid Interpretation Code AO Chemistry S Comment on above: Interpretive Data: GFR Population mean for , Non- Americans Ages 20-29 = 116 mL/min/1.73 sq.m. Ages 30-39 = 107 mL/min/1.73 sq.m. Ages 40-49 = 99 mL/min/1.73 sq.m. Ages 50-59 = 93 mL/min/1.73 sq.m. Ages 60-69 = 85 mL/min/1.73 sq.m. Ages 70+ = 75 mL/min/1.73 sq.m. Chronic Kidney Disease: Less than 60 mL/min/1.73 square meters End Stage Renal Disease: Less than 15 mL/min/1.73 square meters GFR/1.73 sq M.predicted among non-blacks MDRD (S/P/Bld) [Vol rate/Area] 28 ml/min/1.73sqm Invalid Interpretation Code AO Chemistry S Comment on above: Interpretive Data: GFR Population mean for , Non- Americans Ages 20-29 = 116 mL/min/1.73 sq.m. Ages 30-39 = 107 mL/min/1.73 sq.m. Ages 40-49 = 99 mL/min/1.73 sq.m. Ages 50-59 = 93 mL/min/1.73 sq.m. Ages 60-69 = 85 mL/min/1.73 sq.m. Ages 70+ = 75 mL/min/1.73 sq.m. Chronic Kidney Disease: Less than 60 mL/min/1.73 square meters End Stage Renal Disease: Less than 15 mL/min/1.73 square meters Glucose [Mass/Vol] 195 mg/dL High 83 - 110 mg/dL AO ADM SS Hematocrit (Bld) [Volume fraction] 28.3 % Low 37.0 - 47.0 % AO Workflow SS Hemoglobin (Bld) [Mass/Vol] 9.7 G/dL Low 12.0 - 16.0 G/dL AO Workflow SS Lymphocyte, Absolute 0.9 103/mcL Normal 0.8 - 3 .9 10^3/mcL AO Workflow SS Lymphocytes/100 WBC (Bld) 6.2 % Low 10.0 - 50.0 % AO Workflow SS MCH (RBC) [Entitic mass] 32.0 pg High 27.0 - 31.2 pg AO Workflow SS MCHC 34.1 G/dL Normal 33.0 - 37.0 G/dL AO Workflow SS MCV (RBC) [Entitic vol] 93.8 fL Normal 80.0 - 94.0 fL AO Workflow SS Monocyte, Absolute 1.9 103/mcL High 0.2 - 1.0 10^3/mcL AO Workflow SS Monocytes/100 WBC (Bld) 12.9 % Normal 1.7 - 13.0 % AO Workflow SS Neutrophil, Absolute 12.0 103/mcL High 2.9 - 6 .2 10^3/mcL AO Workflow SS Neutrophils/100 WBC (Bld) 80.5 % High 37.0 - 80.0 % AO Workflow SS Platelet mean volume (Bld) [Entitic vol] 9.2 fL Normal 7.4 - 10.4 fL AO Workflow SS Platelets (Bld) [#/Vol] 193 103/mcL Normal 130 - 400 10^3/mcL AO Workflow SS Potassium [Moles/Vol] 4.7 mmol/L Normal 3.5 - 5.1 mmol/L AO ADM SS RBC (Bld) [#/Vol] 3.02 106/mcL Low 4.20 - 5.4 0 10^6/mcL AO Workflow SS Sodium [Moles/Vol] 139 mmol/L Normal 136 - 145 mmol/L AO ADM SS Urea nitrogen [Mass/Vol] 28 mg/dL High 7 - 18 mg/dL AO ADM SS Urea nitrogen/Creatinine [Mass ratio] 16 ratio Normal 7 - 27 ratio AO ADM SS WBC (Bld) [#/Vol] 14.9 103/mcL High 4.6 - 10.8 10^3/mcL AO Workflow SS MGon 01-12-2024 Magnesium [Mass/Vol] 1.9 mg/dL Normal 1.8-2.4 [facility] ([place]) Comment on above: Performed By: #### A BRENDAN, BMP, GFR, ADIFF, CBC #### [address] [address] Gel ABOon 01-11-2024 ABO/Rh Interp Positive Invalid Interpretation Code [facility] ([place]) Comment on above: Performed By: #### A BRENDAN, BMP, GFR, ADIFF, CBC #### [address] [address] Gel ABSon 01-11-2024 Antibody Screen Gel Negative Normal [facility] ([place]) Comment on above: Performed By: #### A BRENDAN, BMP, GFR, ADIFF, CBC #### [address] [address] LABORATORYOrdered By: Carlos Irwin on 01-11-2024 ABO/Rh Interp Positive Invalid Interpretation Code AO BB SS Antibody Screen Gel Negative ABSC (01/11/24 7:04 AM) Normal AO BB SS XR SHOULDER MINIMUM 2 VIEWS LEFTon 01-11-2024 XR SHOULDER MINIMUM 2 VIEWS LEFT ORIGINAL EXAMINATION: TWO XRAY VIEWS OF THE LEFT SHOULDER01/11/2024 10:36 am COMPARISON: None. HISTORY: ORDERING SYSTEM PROVIDED HISTORY: Reason for Exam: Status Post Arthroplasty FINDINGS: Patient is status post total reverse shoulder arthroplasty with normal component alignment in seeding in no complicating process. IMPRESSION: Status post total left shoulder arthroplasty. Interpreted by: Jonathan Brothers Preliminary Report By: Jonathan Brothers Electronically signed By Jonathan Brothers Dictated Date: 01/11/2024 12:13:51 PM Prelim Date: 01/11/2024 12:26:30 PM Sign Date: 01/11/2024 12:26:30 PM Ordering Provider: MELQUIADES Sheridan [facility] ([place]) MRSAPCRon 12-18-2023 MRSA (PCR) Not detected Normal Not Detected [facility] ([place]) Comment on above: Result Comment: [place] [id number] Performed By: #### A BRENDAN, BMP, GFR, ADIFF, CBC #### [place] [address] [facility] ([place]) Comment on above: Result Comment: MRSA DNA not detected by Real-Time Polymerase Chain Reaction (PCR). A negative result may be due to intermittent colonization. Colonization may vary depending on patient treatment, patient status, or exposure to high-risk environments. As with all PCR based in vitro diagnostic tests, extremely low levels of target below the limit of detection of the assay may be detected, but results may not be reproducible. See Below Performed By: #### A BRENDAN, BMP, GFR, ADIFF, CBC #### [place] [address] .Auto Diffon 12-17-2023 Basophil, Absolute 0.1 10 3/mcL Normal 0.0-0.2 [facility] ([place]) Comment on above: Performed By: #### A BRENDAN, BMP, GFR, ADIFF, CBC #### [place] [id number] Basophils/100 WBC (Bld) 0.6 % Normal 0.0-2.5 A [facility] ([place]) Comment on above: Performed By: #### A BRENDAN, BMP, GFR, ADIFF, CBC #### [place] [address] Eosinophil, Absolute 0.2 10 3/mcL Normal 0.0-0.4 [facility] ([place]) Comment on above: Performed By: #### A BRENDAN, BMP, GFR, ADIFF, CBC #### [place] [id number] Eosinophils/100 WBC (Bld) 1.7 % Normal 0.0-7.0 [facility] ([place]) Comment on above: Performed By: #### A BRENDAN, BMP, GFR, ADIFF, CBC #### [address] [address] Lymphocyte, Absolute 1.7 10 3/mcL Normal 0.8-3.9 [facility] ([place]) Comment on above: Performed By: #### A BRENDAN, BMP, GFR, ADIFF, CBC #### [address] [address] Lymphocytes/100 WBC (Bld) 14.8 % Normal 10.0-50.0 [facility] ([place]) Comment on above: Performed By: #### A BRENDAN, BMP, GFR, ADIFF, CBC #### [address] [address] Monocyte, Absolute 1.0 10 3/mcL Normal 0.2-1.0 [facility] ([place]) Comment on above: Performed By: #### A BRENDAN, BMP, GFR, ADIFF, CBC #### [address] [address] Monocytes/100 WBC (Bld) 8.7 % Normal 1.7-13.0 A [facility] ([place]) Comment on above: Performed By: #### A BRENDAN, BMP, GFR, ADIFF, CBC #### [address] [address] Neutrophils/100 WBC (Bld) 74.2 % Normal 37.0-80.0 [facility] ([place]) Comment on above: Performed By: #### A BRENDAN, BMP, GFR, ADIFF, CBC #### [address] [address] .GFRon 12-17-2023 GFR Non- 30 ml/min/1.73sqm Normal [facility] ([place]) Comment on above: Result Comment: GFR Population mean for , Non- Americans Ages 20-29 = 116 mL/min/1.73 sq.m. Ages 30-39 = 107 mL/min/1.73 sq.m. Ages 40-49 = 99 mL/min/1.73 sq.m. Ages 50-59 = 93 mL/min/1.73 sq.m. Ages 60-69 = 85 mL/min/1.73 sq.m. Ages 70+ = 75 mL/min/1.73 sq.m. Chronic Kidney Disease: Less than 60 mL/min/1.73 square meters End Stage Renal Disease: Less than 15 mL/min/1.73 square meters Performed By: #### A BRENDAN, BMP, GFR, ADIFF, CBC #### [address] [address] GFR 36 ml/min/1.73sqm Normal [facility] ([place]) Comment on above: Result Comment: GFR Population mean for , Non- Americans Ages 20-29 = 116 mL/min/1.73 sq.m. Ages 30-39 = 107 mL/min/1.73 sq.m. Ages 40-49 = 99 mL/min/1.73 sq.m. Ages 50-59 = 93 mL/min/1.73 sq.m. Ages 60-69 = 85 mL/min/1.73 sq.m. Ages 70+ = 75 mL/min/1.73 sq.m. Chronic Kidney Disease: Less than 60 mL/min/1.73 square meters End Stage Renal Disease: Less than 15 mL/min/1.73 square meters Performed By: #### A BRENDAN, BMP, GFR, ADIFF, CBC #### [address] [address] .NEUABSon 12-17-2023 Neutrophil, Absolute 8.5 10 3/mcL High 2.9-6.2 [facility] ([place]) Comment on above: Performed By: #### A BRENDAN, BMP, GFR, ADIFF, CBC #### [address] [address] A1Con 12-17-2023 HbA1c (Bld) [Mass fraction] 6.7 % High 4.3-6.4 [facility] ([place]) Comment on above: Performed By: #### A BRENDAN, BMP, GFR, ADIFF, CBC #### [address] [address] ALBon 12-17-2023 Albumin Level 3.4 G/dL Normal 3.4-4.8 [facility] ([place]) Comment on above: Performed By: #### A BRENDAN, BMP, GFR, ADIFF, CBC #### [address] [address] BMPon 12-17-2023 BUN/Creatinine Ratio 14 ratio Normal 7-27 [facility] ([place]) Comment on above: Performed By: #### A BRENDAN, BMP, GFR, ADIFF, CBC #### [address] [address] Calcium [Mass/Vol] 10.3 mg/dL High 8.4-10.2 [facility] ([place]) Comment on above: Performed By: #### A BRENDAN, BMP, GFR, ADIFF, CBC #### [address] [address] Chloride [Moles/Vol] 104 mmol/L Normal 98-107 [facility] ([place]) Comment on above: Performed By: #### A BRENDAN, BMP, GFR, ADIFF, CBC #### [address] [address] CO2 [Moles/Vol] 30 mmol/L Normal 23-31 [facility] ([place]) Comment on above: Performed By: #### A BRENDAN, BMP, GFR, ADIFF, CBC #### [address] [address] Creatinine [Mass/Vol] 1.65 mg/dL High 0.55-1.02 [facility] ([place]) Comment on above: Performed By: #### A BRENDAN, BMP, GFR, ADIFF, CBC #### [address] [address] Electrolyte Balance 8.0 mEq/L Normal 4.0-15.0 [facility] ([place]) Comment on above: Performed By: #### A BRENDAN, BMP, GFR, ADIFF, CBC #### [address] [address] Glucose [Mass/Vol] 118 mg/dL High 83-110 [facility] ([place]) Comment on above: Performed By: #### A BRENDAN, BMP, GFR, ADIFF, CBC #### [address] [address] Potassium [Moles/Vol] 4.6 mmol/L Normal 3.5-5.1 [facility] ([place]) Comment on above: Performed By: #### A BRENDAN, BMP, GFR, ADIFF, CBC #### [address] [address] Sodium [Moles/Vol] 142 mmol/L Normal 136-145 [facility] ([place]) Comment on above: Performed By: #### A BRENDAN, BMP, GFR, ADIFF, CBC #### [address] [address] Urea nitrogen [Mass/Vol] 23 mg/dL High 7-18 [facility] ([place]) Comment on above: Performed By: #### A BRENDAN, BMP, GFR, ADIFF, CBC #### [address] [address] CBCon 12-17-2023 Erythrocyte distribution width (RBC) [Ratio] 15.6 % High 11.5-14.5 [facility] ([place]) Comment on above: Order Comment: Pre-A dmission Testing Performed By: #### A BRENDAN, BMP, GFR, ADIFF, CBC #### [address] [address] Hematocrit (Bld) [Volume fraction] 35.0 % Low 37.0-47.0 [facility] ([place]) Comment on above: Order Comment: Pre-A dmission Testing Performed By: #### A BRENDAN, BMP, GFR, ADIFF, CBC #### [address] [address] Hgb 11.6 G/dL Low 12.0-16.0 [facility] ([place]) Comment on above: Order Comment: Pre-A dmission Testing Performed By: #### A BRENDAN, BMP, GFR, ADIFF, CBC #### [address] [address] MCH (RBC) [Entitic mass] 31.0 pg Normal 27.0-31.2 [facility] ([place]) Comment on above: Order Comment: Pre-A dmission Testing Performed By: #### A BRENDAN, BMP, GFR, ADIFF, CBC #### [address] [address] MCHC 33.1 G/dL Normal 33.0-37.0 [facility] ([place]) Comment on above: Order Comment: Pre-A dmission Testing Performed By: #### A BRENDAN, BMP, GFR, ADIFF, CBC #### [place] [address] MCV (RBC) [Entitic vol] 93.8 fL Normal 80.0-94.0 A [facility] ([place]) Comment on above: Order Comment: Pre-A dmission Testing Performed By: #### A BRENDAN, BMP, GFR, ADIFF, CBC #### [address] [address] Platelet 269 10 3/mcL Normal 130-400 [facility] ([place]) Comment on above: Order Comment: Pre-A dmission Testing Performed By: #### A BRENDAN, BMP, GFR, ADIFF, CBC #### [address] [address] Platelet mean volume (Bld) [Entitic vol] 9.5 fL Normal 7.4-10.4 [facility] ([place]) Comment on above: Order Comment: Pre-A dmission Testing Performed By: #### A BRENDAN, BMP, GFR, ADIFF, CBC #### [address] [address] RBC 3.73 10 6/mcL Low 4.20-5.40 [facility] ([place]) Comment on above: Order Comment: Pre-A dmission Testing Performed By: #### A BRENDAN, BMP, GFR, ADIFF, CBC #### [address] [address] WBC 11.4 10 3/mcL High 4.6-10.8 [facility] ([place]) Comment on above: Order Comment: Pre-A dmission Testing Performed By: #### A BRENDAN, BMP, GFR, ADIFF, CBC #### Yolanda Gold[address] [place], [place] [address] CT SHOULDER W/O CONTRAST LEF Ton 12-17-2023 CT SHOULDER W/O CONTRAST LEFT ORIGINAL EXAMINATION: CT OF THE LEFT SHOULDER WITHOUT CONTRAST 12/17/2023 10:20 am TECHNIQUE: CT of the left shoulder was performed without the administration of intravenous contrast. Multiplanar reformatted images are provided for review. Automated exposure control, iterative reconstruction, and/or weight based adjustment of the mA/kV was utilized to reduce the radiation dose to as low as reasonably achievable. COMPARISON: None. HISTORY ORDERING SYSTEM PROVIDED HISTORY: Reason for Exam: Strain of muscle(s) and tendon(s) of the rotator cuff of left shoulder, initial encounter FINDINGS: Bones: No evidence of acute fracture or dislocation. No aggressive appearing osseous abnormality or periostitis. No significant bone loss seen in the glenoid. Soft Tissue: There is supraspinatus and infraspinatus fatty replacement and some atrophy. There is a moderate volume glenohumeral joint effusion. Fluid extends into the subacromial subdeltoid bursa. Otherwise, no focal edema or fluid collection. Joint: There are mild degenerative changes the glenohumeral joint including marginal osteophyte production in some joint space narrowing. There are degenerative changes of the acromioclavicular joint with joint space narrowing and subchondral cyst formation. Calcified body seen in the subcoracoid recess measuring up to 4 mm. ADDITIONAL COMMENTS: Extensive coronary artery calcifications and stents. Otherwise, the included thoracic structures are unremarkable. 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 Loose calcified body seen in the subcoracoid recess of the glenohumeral joint. Moderate volume glenohumeral joint effusion. Fluid extends into the subacromial subdeltoid bursa Extensive coronary artery calcifications and stents. Atrophy of the supraspinatus and infraspinatus musculature is likely indicative of chronic rotator cuff tears I have personally reviewed the images of this examination, agree with resident's findings and interpretation. Interpreted by: Jose Santacruz MD Preliminary Report By: Kin Melendrez Electronically signed By Jose Santacruz MD Dictated Date: 12/17/2023 10:33:25 AM Prelim Date: 12/17/2023 3:32:32 PM Sign Date: 12/17/2023 3:32:32 PM Ordering Provider: MELQUIADES BENDER Normal [facility] ([place]) Gel ABOon 12-17-2023 ABO/Rh Interp Positive Invalid Interpretation Code [facility]) Comment on above: Performed By: #### A BRENDAN, BMP, GFR, ADIFF, CBC #### [place] [id number] [place], [place] [address] Gel ABSon 12-17-2023 Antibody Screen Gel Negative Normal [facility]) Comment on above: Performed By: #### A BRENDAN, BMP, GFR, ADIFF, CBC #### [place] [id number] [place], [place] [address] LABORATORYOrdered By: Mac Rodriguez on 12-17-2023 ABO/Rh Interp Positive Invalid Interpretation Code AO BB SS Antibody Screen Gel Negative ABSC (12/17/23 11:31 AM) Normal AO BB SS LABORATORYOrdered By: SYSTEM SYSTEM on 12-17-2023 Albumin BCP dye [Mass/Vol] 3.4 G/dL Normal 3.4 - 4.8 G/dL AO ADM SS Basophil, Absolute 0.1 103/mcL Normal 0.0 - 0.2 10^3/mcL AO Workflow SS Basophils/100 WBC (Bld) 0.6 % Normal 0.0 - 2.5 % AO Workflow SS Calcium [Mass/Vol] 10.3 mg/dL High 8.4 - 10. 2 mg/dL AO ADM SS Chloride [Moles/Vol] 104 mmol/L Normal 98 - 10 7 mmol/L AO ADM SS CO2 [Moles/Vol] 30 mmol/L Normal 23 - 31 mmol/L AO ADM SS Creatinine [Mass/Vol] 1.65 mg/dL High 0.55 - 1.02 mg/dL AO ADM SS Electrolyte Balance 8.0 mEq/L Normal 4.0 - 15 .0 mEq/L AO ADM SS Eosinophil, Absolute 0.2 103/mcL Normal 0.0 - 0 .4 10^3/mcL AO Workflow SS Eosinophils/100 WBC (Bld) 1.7 % Normal 0.0 - 7.0 % AO Workflow SS Erythrocyte distribution width (RBC) [Ratio] 15.6 % High 11.5 - 14.5 % AO Workflow SS GFR/1.73 sq M.predicted among blacks MDRD (S/P/Bld) [Vol rate/Area] 36 ml/min/1.73sqm Invalid Interpretation Code AO Chemistry S Comment on above: Interpretive Data: GFR Population mean for , Non- Americans Ages 20-29 = 116 mL/min/1.73 sq.m. Ages 30-39 = 107 mL/min/1.73 sq.m. Ages 40-49 = 99 mL/min/1.73 sq.m. Ages 50-59 = 93 mL/min/1.73 sq.m. Ages 60-69 = 85 mL/min/1.73 sq.m. Ages 70+ = 75 mL/min/1.73 sq.m. Chronic Kidney Disease: Less than 60 mL/min/1.73 square meters End Stage Renal Disease: Less than 15 mL/min/1.73 square meters GFR/1.73 sq M.predicted among non-blacks MDRD (S/P/Bld) [Vol rate/Area] 30 ml/min/1.73sqm Invalid Interpretation Code AO Chemistry S Comment on above: Interpretive Data: GFR Population mean for , Non- Americans Ages 20-29 = 116 mL/min/1.73 sq.m. Ages 30-39 = 107 mL/min/1.73 sq.m. Ages 40-49 = 99 mL/min/1.73 sq.m. Ages 50-59 = 93 mL/min/1.73 sq.m. Ages 60-69 = 85 mL/min/1.73 sq.m. Ages 70+ = 75 mL/min/1.73 sq.m. Chronic Kidney Disease: Less than 60 mL/min/1.73 square meters End Stage Renal Disease: Less than 15 mL/min/1.73 square meters Glucose [Mass/Vol] 118 mg/dL High 83 - 110 mg/dL AO ADM SS HbA1c (Bld) [Mass fraction] 6.7 % High 4.3 - 6.4 % AO ADM SS Hematocrit (Bld) [Volume fraction] 35.0 % Low 37.0 - 47.0 % AO Workflow SS Hemoglobin (Bld) [Mass/Vol] 11.6 G/dL Low 12.0 - 16.0 G/dL AO Workflow SS Lymphocyte, Absolute 1.7 103/mcL Normal 0.8 - 3 .9 10^3/mcL AO Workflow SS Lymphocytes/100 WBC (Bld) 14.8 % Normal 10.0 - 50.0 % AO Workflow SS MCH (RBC) [Entitic mass] 31.0 pg Normal 27.0 - 31.2 pg AO Workflow SS MCHC 33.1 G/dL Normal 33.0 - 37.0 G/dL AO Workflow SS MCV (RBC) [Entitic vol] 93.8 fL Normal 80.0 - 94.0 fL AO Workflow SS Monocyte, Absolute 1.0 103/mcL Normal 0.2 - 1.0 10^3/mcL AO Workflow SS Monocytes/100 WBC (Bld) 8.7 % Normal 1.7 - 13.0 % AO Workflow SS Neutrophil, Absolute 8.5 103/mcL High 2.9 - 6 .2 10^3/mcL AO Workflow SS Neutrophils/100 WBC (Bld) 74.2 % Normal 37.0 - 80.0 % AO Workflow SS Platelet mean volume (Bld) [Entitic vol] 9.5 fL Normal 7.4 - 10.4 fL AO Workflow SS Platelets (Bld) [#/Vol] 269 103/mcL Normal 130 - 400 10^3/mcL AO Workflow SS Potassium [Moles/Vol] 4.6 mmol/L Normal 3.5 - 5.1 mmol/L AO ADM SS RBC (Bld) [#/Vol] 3.73 106/mcL Low 4.20 - 5.4 0 10^6/mcL AO Workflow SS Sodium [Moles/Vol] 142 mmol/L Normal 136 - 145 mmol/L AO ADM SS Urea nitrogen [Mass/Vol] 23 mg/dL High 7 - 18 mg/dL AO ADM SS Urea nitrogen/Creatinine [Mass ratio] 14 ratio Normal 7 - 27 ratio AO ADM SS WBC (Bld) [#/Vol] 11.4 103/mcL High 4.6 - 10.8 10^3/mcL AO Workflow SS LABORATORYOrdered By: Samia Koo on 12-17-2023 MRSA (PCR) Not Detected 1 (12/17/23 11:31 AM) Normal Not Detected Auto Viro/Sero SS Comment on above: Result Comment: [place] [id number] MRSA PCR Int MRSA DNA not detecte d by Real-Time Polymerase Chain Reaction (PCR). A negative result may be due to intermittent colonization. Colonization may vary depending on patient treatment, patient status, or exposure to high-risk environments.As with all PCR based in vitro diagnostic tests, extremely low levels of target below the limit of detection of the assay may be detected, but results may not be reproducible. Invalid Interpretation Code Auto Viro/Sero SS US LEG VEIN DVT ENRIKE VAS LABo n 11-26-2023 US LEG VEIN DVT ENRIKE VAS LAB Non-Invasive Vascular Laboratory [facility] Lower Extremity Venous Duplex Bilateral/Complete Date of service/time: 11/26/2023 10:15:06 AM Name: MRS. DOLORES VILLA Date of : 1945 Age: 78 years Gender: F Medical History Tobacco: No Coronary disease: Yes History of abdominal aortic aneurysm: Yes Hypertension: Yes Diabetes: Yes Clinical Indication Lower extremity swelling. TECHNIQUE -------- A venous duplex ultrasound examination was performed, including grayscale imaging with compression maneuvers and color Doppler and spectral Doppler examination with augmentation maneuvers and response to respiration of the below mentioned veins. FINDINGS -------- RIGHT SIDE Distal external iliac vein Doppler: normal flow. Compression: normal. Common femoral vein Doppler: normal flow. Compression: normal. Femoral vein Doppler: normal flow. Compression: normal. Popliteal vein Doppler: normal flow. Compression: normal. Posterior tibial veins Compression: normal. Peroneal veins Compression: normal. Great saphenous vein Compression: normal. Small saphenous vein Compression: normal. Soleal vein Compression: normal. Gastrocnemius vein Compression: normal. Profunda vein Doppler: normal flow. Compression: normal. LEFT SIDE Distal external iliac vein Doppler: normal flow. Compression: normal. Common femoral vein Doppler: normal flow. Compression: normal. Femoral vein Doppler: normal flow. Compression: normal. Popliteal vein Doppler: normal flow. Compression: normal. Posterior tibial veins Compression: normal. Peroneal veins Compression: normal. Great saphenous vein Compression: normal. Small saphenous vein Compression: normal. Soleal vein Compression: normal. Gastrocnemius vein Compression: normal. Profunda vein Doppler: normal flow. Compression: normal. IMPRESSION RIGHT SIDE - DEEP VEINS Negative for acute deep vein thrombosis. RIGHT SIDE - SUPERFICIAL VEINS Negative for superficial thrombophlebitis in the great saphenous vein and small saphenous vein. LEFT SIDE - DEEP VEINS Negative for acute deep vein thrombosis. LEFT SIDE - SUPERFICIAL VEINS Negative for superficial thrombophlebitis in the great saphenous vein and small saphenous vein. Technologist: Dennis Valladares Ordering physician: MATTHEW SPENCER Interpreting physician: Shai Rodriguez MD Final CC [employer] Medical Image : [id number] See Link below for Image Normal [facility] XR CHEST 2V FRONTAL/LATon [facility] XR Chest PA and Lateralon IMPRESSION: No acute radiographic abnormality in the lungs. Mild enlargement of the cardiac silhouette. Gear Tooth Lapping Machine Operator: SAVANNA Transcribe Date/Time: Jul 21 2023 9:30A Dictated by : AILYN MILLER MD This examination was interpreted and the report reviewed and electronically signed by: AILYN MILLER MD on Jul 21 2023 9:32AM [facility] DIVISION OF RADIOLOGY * * *Final Report* * * DATE OF EXAM: Jul 21 2023 9:23AM WOX 5291 - XR CHEST 2V FRONTAL/LAT / PROCEDURE REASON: Acute cough * * * * Physician Interpretation * * * * EXAMINATION: CHEST RADIOGRAPH (2 VIEW FRONTAL & LATERAL) CLINICAL HISTORY: Acute cough MQ: XC2_6 EXAM DATE/TIME: 07/21/2023 9:23 AM COMPARISON: Chest x-ray on 03/19/2091 RESULT: Lines, tubes, and devices: None. Lungs and pleura: No consolidation. No lung mass. No pleural effusion. No pneumothorax. Cardiomediastinal silhouette: There appears be mild enlargement of the cardiac silhouette. Bones and soft tissues: The spine shows degenerative changes. DIVISION OF RADIOLOGY Provider, [facility] - 07/21/2023 * * *Final Report* * * DATE OF EXAM: Jul 21 2023 9:23AM WOX 5291 - XR CHEST 2V FRONTAL/LAT / PROCEDURE REASON: Acute cough * * * * Physician Interpretation * * * * EXAMINATION: CHEST RADIOGRAPH (2 VIEW FRONTAL & LATERAL) CLINICAL HISTORY: Acute cough MQ: XC2_6 EXAM DATE/TIME: 07/21/2023 9:23 AM COMPARISON: Chest x-ray on 03/19/2091 RESULT: Lines, tubes, and devices: None. Lungs and pleura: No consolidation. No lung mass. No pleural effusion. No pneumothorax. Cardiomediastinal silhouette: There appears be mild enlargement of the cardiac silhouette. Bones and soft tissues: The spine shows degenerative changes. IMPRESSION IMPRESSION: No acute radiographic abnormality in the lungs. Mild enlargement of the cardiac silhouette. Gear Tooth Lapping Machine Operator: TapBookAuthorB Transcribe Date/Time: Jul 21 2023 9:30A Dictated by : AILYN MILLER MD This examination was interpreted and the report reviewed and electronically signed by: AILYN MILLER MD on Jul 21 2023 9:32AM EST [facility] Radiology Study observation (narrative) Marilee alvarez [facility] XR Chest PA and LateralOrder ed By: Cc Provider on 07-21-2023 [facility] Absolute lymphocyte counton 11-16-2022 Lymphocytes Auto (Unsp spec) [#/Vol] 1.61 10*3/uL 0.83-4.51 [facility] Work Phone: Basophil percentageon 2021 Basophils/100 WBC (Bld) 0.5 % 0-1 [facility] Work Phone: Chloride [Moles/Vol] 106 mmol/L 98-107 [facility] Work Phone: Eosinophils/100 WBC (Bld) 0.9 % 0-5 [facility] Work Phone: Glucose [Mass/Vol] 157 mg/dL 74-106 [facility] Work Phone: Comment on above: Fasting Glucose resu lt greater than or equal to 126 mg/dL suggests DIABETES MELLITUS per A.D.A. criteria. Neutrophils (Bld) [#/Vol] 6.8 10*3/uL 2.0-7.7 [facility] Work Phone: Neutrophils/100 WBC (Bld) 71.4 % 47-70 [facility] Work Phone: Potassium [Moles/Vol] 3.9 mmol/L 3.5-5.1 [facility] Work Phone: Sodium [Moles/Vol] 138 mmol/L 136-145 [facility] Work Phone: WBC (Bld) [#/Vol] 9.5 10*3/uL 4.4-11.0 [facility] Work Phone: Blood erythrocytes count (nu mber/volume)on 11-16-2022 RBC (Bld) [#/Vol] 3.78 10*6/uL 4.2-5.4 [facility] Work Phone: Blood hemoglobin measurement (mass/volume)on 11-16-2022 Hemoglobin (Bld) [Mass/Vol] 11.5 g/dL 12.0-15.0 [facility] Work Phone: Blood lymphocytes/100 leukoc yteson 11-16-2022 Lymphocytes/100 WBC (Bld) 16.9 % 19-41 [facility] Work Phone: Blood monocytes/100 leukocyt eson 11-16-2022 Monocytes/100 WBC (Bld) 9.7 % 0-10 [facility] Work Phone: Blood platelet mean volumeon 11-16-2022 Platelet mean volume (Bld) [Entitic vol] 10.3 fL 6.2-12.0 [facility] [facility] [place] Work Phone: Determination of erythrocyte mean corpuscular volume (MCV)on 11-16-2022 MCV (RBC) [Entitic vol] 99.2 fL 81-99 [facility] Work Phone: [phone] Hematocrit Auto (Bld) [Volum e fraction]on 11-16-2022 Hematocrit (Bld) [Volume fraction] 37.5 % 37-47 [facility] [place] Work Phone: [phone] Laboratory - Chemistry and C hemistry - challengeon 11-16-2022 CO2 [Moles/Vol] 27.0 mmol/L 21.0-32.0 [facility] [place] Work Phone: [phone] Urea nitrogen/Creatinine [Mass ratio] 8.1 mg/mg 10-20 [facility] [place] Work Phone: [phone] Laboratory - Hematology and Cell countson 11-16-2022 Erythrocyte distribution width (RBC) [Entitic vol] 51.7 fL 35.1-43.9 [facility] [place] Work Phone: [phone] Erythrocyte distribution width (RBC) [Ratio] 14.4 % 11.6-14.6 [facility] [place] Work Phone: [phone] Immature granulocytes/100 WBC (Bld) 0.600 % 0.0-0.9 [facility] [place] Work Phone: [phone] Comment on above: IG% - Immature Granu locytes (promyelocytes, myelocytes and metamyelocytes) > 1% indicates that a LEFT SHIFT is Present. MCH (RBC) [Entitic mass] 30.4 pg 27.0-32.0 [facility] [place] Work Phone: [phone] Nucleated RBC/100 WBC (Bld) [Ratio] 0 % 0-5 [facility] [place] Work Phone: [phone] MCHC Auto (RBC) [Mass/Vol]on 11-16-2022 MCHC (RBC) [Mass/Vol] 30.7 g/dL 32-36 [facility] Work Phone: [phone] Panel Informationon 11-16 Estimated Creatinine Clearance Calc 27.29 ml/min [facility] [place] Work Phone: [phone] Estimated GFR (MDRD) Amer 54 mL/min >60 [facility] [place] Work Phone: Comment on above: GFR Calc Estimated GFR (MDRD) Non-Af Amer 45 mL/min >60 [facility] [place] Work Phone: Comment on above: Non- GFR Calc Troponin I High Sensitivity 15 pg/mL 3.0-54.0 [facility] [place] Work Phone: Comment on above: Please Note: New Alexus t Units and Gender Specific Reference Ranges. For more information see Policy Stat Procedure Albert Lea High Sensitivity Troponin (TNIH) and attachments. Platelets bldon 11-16-2022 Platelets (Bld) [#/Vol] 288 10*3/uL 150-450 [facility] [place] Work Phone: Serum or plasma calcium abdi urement (mass/volume)on 11-16-2022 Calcium [Mass/Vol] 9.3 mg/dL 8.5-10.1 [facility] Work Phone: Serum or plasma creatinine m easurement (mass/volume)on 11-16-2022 Creatinine [Mass/Vol] 1.24 mg/dL 0.55-1.02 [facility] Work Phone: Comment on above: The validity of the calculated GFR & GFRAA in patients over 70 years has not been determined. Clinical correlation is essential. Serum or plasma urea nitroge n measurement (mass/volume)on 11-16-2022 Urea nitrogen [Mass/Vol] 10 mg/dL 7-18 [facility] [place] Work Phone: Thin prep Papanicolaou smear with manual screeningon 11-16-2022 Thin prep Papanicolaou smear with manual screening 5 5-15 [facility] [place] Work Phone: Basophil percentageon 2021 Chloride [Moles/Vol] 105 mmol/L 98-107 [facility] Work Phone: Glucose [Mass/Vol] 181 mg/dL 74-106 [facility] Work Phone: Comment on above: Fasting Glucose resu lt greater than or equal to 126 mg/dL suggests DIABETES MELLITUS per A.D.A. criteria. Potassium [Moles/Vol] 3.8 mmol/L 3.5-5.1 [facility] Work Phone: Sodium [Moles/Vol] 138 mmol/L 136-145 [facility] Work Phone: Laboratory - Chemistry and C hemistry - challengeon 06-03-2022 CO2 [Moles/Vol] 28.0 mmol/L 21.0-32.0 [facility] [place] Work Phone: Urea nitrogen/Creatinine [Mass ratio] 13.8 mg/mg 10-20 [facility] [place] Work Phone: No Panel Informationon 06-03 Estimated GFR (MDRD) Amer 45 mL/min >60 [facility] [place] Work Phone: Comment on above: GFR Calc Estimated GFR (MDRD) Non-Af Amer 37 mL/min >60 [facility] [place] Work Phone: Comment on above: Non- GFR Calc Serum or plasma calcium abdi urement (mass/volume)on 06-03-2022 Calcium [Mass/Vol] 10.1 mg/dL 8.5-10.1 [facility] Work Phone: Serum or plasma creatinine m easurement (mass/volume)on 06-03-2022 Creatinine [Mass/Vol] 1.45 mg/dL 0.55-1.02 [facility] Work Phone: Comment on above: The validity of the calculated GFR & GFRAA in patients over 70 years has not been determined. Clinical correlation is essential. Serum or plasma urea nitroge n measurement (mass/volume)on 06-03-2022 Urea nitrogen [Mass/Vol] 20 mg/dL 7-18 [facility] [place] Work Phone: Thin prep Papanicolaou smear with manual screeningon 06-03-2022 Thin prep Papanicolaou smear with manual screening 5 5-15 [facility] [place] Work Phone: Basophil percentageon 2021 Chloride [Moles/Vol] 103 mmol/L 98-107 [facility] Work Phone: Glucose [Mass/Vol] 245 mg/dL 74-106 [facility] Work Phone: Comment on above: Glucose result great er than or equal to 200 mg/dLsuggests DIABETES MELLITUS per A.D.A. criteria. Potassium [Moles/Vol] 3.8 mmol/L 3.5-5.1 [facility] Work Phone: Sodium [Moles/Vol] 136 mmol/L 136-145 [facility] Work Phone: Laboratory - Chemistry and C hemistry - challengeon 03-26-2022 CO2 [Moles/Vol] 30.0 mmol/L 21.0-32.0 [facility] [place] Work Phone: Urea nitrogen/Creatinine [Mass ratio] 12.5 mg/mg 10-20 [facility] [place] Work Phone: No Panel Informationon 03-26 Estimated GFR (MDRD) Amer 56 mL/min >60 [facility] [place] Work Phone: Comment on above: GFR Calc Estimated GFR (MDRD) Non-Af Amer 46 mL/min >60 [facility] [place] Work Phone: Comment on above: Non- GFR Calc Serum or plasma calcium abdi urement (mass/volume)on 03-26-2022 Calcium [Mass/Vol] 8.9 mg/dL 8.5-10.1 [facility] Work Phone: Serum or plasma creatinine m easurement (mass/volume)on 03-26-2022 Creatinine [Mass/Vol] 1.20 mg/dL 0.55-1.02 [facility] Work Phone: Comment on above: The validity of the calculated GFR & GFRAA in patients over 70 years has not been determined. Clinical correlation is essential. Serum or plasma urea nitroge n measurement (mass/volume)on 03-26-2022 Urea nitrogen [Mass/Vol] 15 mg/dL 7-18 [facility] [place] Work Phone: Thin prep Papanicolaou smear with manual screeningon 03-26-2022 Thin prep Papanicolaou smear with manual screening 3 5-15 [facility] [place] Work Phone: Absolute lymphocyte counton 03-02-2022 Lymphocytes Auto (Unsp spec) [#/Vol] 2.63 10*3/uL 0.83-4.51 [facility] [place] Work Phone: Basophil percentageon 2021 Basophils/100 WBC (Bld) 0.9 % 0-1 [facility] Work Phone: Chloride [Moles/Vol] 101 mmol/L 98-107 [facility] Work Phone: Eosinophils/100 WBC (Bld) 3.0 % 0-5 [facility] [place] Work Phone: Glucose [Mass/Vol] 130 mg/dL 74-106 [facility] Work Phone: Comment on above: Fasting Glucose resu lt greater than or equal to 126 mg/dL suggests DIABETES MELLITUS per A.D.A. criteria. Neutrophils (Bld) [#/Vol] 4.1 10*3/uL 2.0-7.7 [facility] [place] Work Phone: Neutrophils/100 WBC (Bld) 50.7 % 47-70 [facility] [place] Work Phone: Potassium [Moles/Vol] 4.2 mmol/L 3.5-5.1 [facility] Work Phone: Sodium [Moles/Vol] 136 mmol/L 136-145 [facility] Work Phone: WBC (Bld) [#/Vol] 8.0 10*3/uL 4.4-11.0 [facility] Work Phone: Blood erythrocytes count (nu mber/volume)on 03-02-2022 RBC (Bld) [#/Vol] 4.11 10*6/uL 4.2-5.4 [facility] Work Phone: Blood hemoglobin measurement (mass/volume)on 03-02-2022 Hemoglobin (Bld) [Mass/Vol] 13.0 g/dL 12.0-15.0 [facility] [place] Work Phone: Blood lymphocytes/100 leukoc yteson 03-02-2022 Lymphocytes/100 WBC (Bld) 32.8 % 19-41 [facility] [place] Work Phone: Blood monocytes/100 leukocyt eson 03-02-2022 Monocytes/100 WBC (Bld) 11.7 % 0-10 [facility] Work Phone: Blood platelet mean volumeon 03-02-2022 Platelet mean volume (Bld) [Entitic vol] 10.9 fL 6.2-12.0 [facility] [place] Work Phone: Determination of erythrocyte mean corpuscular volume (MCV)on 03-02-2022 MCV (RBC) [Entitic vol] 97.1 fL 81-99 [facility] Work Phone: Hematocrit Auto (Bld) [Volum e fraction]on 03-02-2022 Hematocrit (Bld) [Volume fraction] 39.9 % 37-47 [facility] [place] Work Phone: INR in Blood by Coagulation assayon 03-02-2022 INR Coag (Bld) [Relative time] 1.1 {INR} [facility] [place] Work Phone: Laboratory - Chemistry and C hemistry - challengeon 03-02-2022 CO2 [Moles/Vol] 29.0 mmol/L 21.0-32.0 [facility] [place] Work Phone: Urea nitrogen/Creatinine [Mass ratio] 14.6 mg/mg 10-20 [facility] [place] Work Phone: Laboratory - Coagulationon 0 03-02-2022 aPTT Coag (Bld) [Time] 25.0 s 24.1-36.2 [facility] Work Phone: PT Coag (PPP) [Time] 13.1 s 11.7-14.9 [facility]: Laboratory - Hematology and Cell countson 03-02-2022 Erythrocyte distribution width (RBC) [Entitic vol] 46.5 fL 35.1-43.9 [facility] [place] Work Phone: [phone] Erythrocyte distribution width (RBC) [Ratio] 13.2 % 11.6-14.6 [facility] [place] Work Phone: [phone] Immature granulocytes/100 WBC (Bld) 0.900 % 0.0-0.9 [facility] [place] Work Phone: [phone] Comment on above: IG% - Immature Granu locytes (promyelocytes, myelocytes and metamyelocytes) > 1% indicates that a LEFT SHIFT is Present. MCH (RBC) [Entitic mass] 31.6 pg 27.0-32.0 [facility] [place] Work Phone: [phone] Nucleated RBC/100 WBC (Bld) [Ratio] 0 % 0-5 [facility] [place] Work Phone: [phone] MCHC Auto (RBC) [Mass/Vol]on 03-02-2022 MCHC (RBC) [Mass/Vol] 32.6 g/dL 32-36 [facility] Work Phone: No Panel Informationon 03-02 Estimated GFR (MDRD) Amer 46 mL/min >60 [facility] [place] Work Phone: Comment on above: GFR Calc Estimated GFR (MDRD) Non-Af Amer 38 mL/min >60 [facility] [place] Work Phone: Comment on above: Non- GFR Calc Platelets bldon 03-02-2022 Platelets (Bld) [#/Vol] 292 10*3/uL 150-450 [facility] [place] Work Phone: [phone] Serum or plasma calcium abdi urement (mass/volume)on 03-02-2022 Calcium [Mass/Vol] 9.8 mg/dL 8.5-10.1 [facility] Work Phone: [phone] Serum or plasma creatinine m easurement (mass/volume)on 03-02-2022 Creatinine [Mass/Vol] 1.44 mg/dL 0.55-1.02 [facility] Work Phone: [phone] Comment on above: The validity of the calculated GFR & GFRAA in patients over 70 years has not been determined. Clinical correlation is essential. Serum or plasma urea nitroge n measurement (mass/volume)on 03-02-2022 Urea nitrogen [Mass/Vol] 21 mg/dL 7-18 [facility] [place] Work Phone: Thin prep Papanicolaou smear with manual screeningon 03-02-2022 Thin prep Papanicolaou smear with manual screening 6 5-15 [facility] [place] Work Phone: XR Ribs - right Views and Ch est PAon 03-19-2021 IMPRESSION: NO ACUTE RADIOGRAPHIC ABNORMALITY OR DISPLACED RIB FRACTURE. DECREASED RIGHT SUBACROMIAL INTERVAL MAY RELATE TO ROTATOR CUFF PATHOLOGY. Gear Tooth Lapping Machine Operator: PSCCharan Transcribe Date/Time: Mar 19 2021 12:19P Dictated by : FRANTZ ESPINOZA MD This examination was interpreted and the report reviewed and electronically signed by: FRANTZ ESPINOZA MD on Mar 19 2021 12:23PM [facility] DIVISION OF RADIOLOGY * * *Final Report* * * DATE OF EXAM: Mar 19 2021 11:47AM WOX [id number] - XR RIB/CHST 3V AP RIB/OBL/CHST R / PROCEDURE REASON: Rib pain on right side * * * * Physician Interpretation * * * * EXAMINATION: FRONTAL CHEST X-RAY, AP AND OBLIQUE X-RAYS OF RIGHT RIBS History: Rib pain on right side M: XC2 Comparison: 07/31/2010 RESULT: 1. Lines, Tubes, and Devices: N/A 2. Lungs and Pleura: The lungs are clear. No pleural effusion or pneumothorax. 3. Cardiomediastinal silhouette: Within normal limits. 4. Bones: No acute osseous abnormality. Decreased RIGHT subacromial interval. - - DIVISION OF RADIOLOGY Provider, [facility] - 03/19/2021 * * *Final Report* * * DATE OF EXAM: Mar 19 2021 11:47AM WOX [id number] - XR RIB/CHST 3V AP RIB/OBL/CHST R / PROCEDURE REASON: Rib pain on right side * * * * Physician Interpretation * * * * EXAMINATION: FRONTAL CHEST X-RAY, AP AND OBLIQUE X-RAYS OF RIGHT RIBS History: Rib pain on right side M: XC2 Comparison: 07/31/2010 RESULT: 1. Lines, Tubes, and Devices: N/A 2. Lungs and Pleura: The lungs are clear. No pleural effusion or pneumothorax. 3. Cardiomediastinal silhouette: Within normal limits. 4. Bones: No acute osseous abnormality. Decreased RIGHT subacromial interval. - - IMPRESSION IMPRESSION: NO ACUTE RADIOGRAPHIC ABNORMALITY OR DISPLACED RIB FRACTURE. DECREASED RIGHT SUBACROMIAL INTERVAL MAY RELATE TO ROTATOR CUFF PATHOLOGY. Gear Tooth Lapping Machine Operator: PSCB Transcribe Date/Time: Mar 19 2021 12:19P Dictated by : FRANTZ ESPINOZA MD This examination was interpreted and the report reviewed and electronically signed by: FRANTZ ESPINOZA MD on Mar 19 2021 12:23PM EST [facility] Rad[facility]narrative) [facility] XR Ribs - right Views and Ch est PAOrdered By: Ccf Provider on 03-19-2021 [facility] NURSING PROGon 01-05-2020 NURSING PROG HNO ID: [id number] Author: Isai AndersonRn) HELEN Calhoun Service: Nursing Author Type: Registered Nurse Type: Nursing Progress Note Filed: 01/05/2020 9:23 AM Note Text: Dr. Garcia at bedside for Right hand middle finger local block. RN at bedside, pt monitored throughout, BP 128/64 Temp 36.2 ?C (97.2 ?F) (Temporal Artery) Resp 16 SpO2 94% . Pt tolerated procedure without difficulty. Normal [facility] OPERATIVE NOon 01-05-2020 OPERATIVE NO HNO ID: [id number] Author: Abhijit Garcia Service: Orthopaedic Surgery Author Type: Physician Type: Operative Report Filed: 01/05/2020 10:17 AM Note Text: OPERATIVE/PROCEDURE REPORT LOG ID: [id number] Surgery/Procedure Date: 01/05/2020 Incision/Procedure Start Time: 9:42 AM Incision Close/Procedure End Time: 9:52 AM Surgeon(s)/Proceduralis t(s) and Cathode Maker(s): Surgeon(s) and Role: * Abhijit Garcia - Primary Physician Cathode Maker: Jenifer Anderson ([place]) Registered Nurse [employer] Supervisor: Lady (Rn) HELEN Melendez Procedure(s): right middle trigger release. Anesthesia: Local. Procedure Details: On 01/05/2020, the patient was clearly identified in the preoperative area and marked accordingly on the right middle by myself. After a chloroprep swab, Local anesthetic was provided at the base of the middle near the A1 tao site for a total of 2 mL of 1% lidocaine with Epinephrine. Patient was taken to the operative suite and placed in the supine position with an arm board on the right. All other bony landmarks were appropriately padded in standard fashion. The right upper extremity was sterilely prepped and draped in standard fashion. An appropriate time-out was conducted and all in the room were in agreement, signed consent form was on the chart. An incision was made over the A1 tao of the middle. This was done superficially with a 15 blade and blunt dissection was taken down longitudinally to the flexor apparatus. The digital nerves were clearly identified and protected throughout the case with Crile retractors. Under direct visualization, I divided the A1 tao site of the middle with a 15 blade. There was obvious tenosynovitis and a slight synovectomy was made with Littler scissors. I used a Ragnell retractor to pull the tendon up through the wound confirming its complete release. The wound was copiously irrigated. Hemostasis was observed with bipolar electrocautery. Closure was done with 4-0 Monosof sutures in horizontal mattress fashion for a total of 2. Xeroform gauze, an eye patch, light Prince wrap and Coban was used for final bandage. There were no complications during the procedure. Patient was safely awoken and transferred to the Postanesthetic Care Unit in stable condition. Pre-Op/Pre-Procedure Diagnosis: right middle trigger finger Post-Op/Post-Procedure Diagnosis: right middle trigger finger. Estimated Blood Loss: None Specimens: None Implantable Devices: None Drains: None Complications: None The primary surgeon/proceduralist performed the entire procedure. SIGNATURE: Abhijit Garcia MD PATIENT NAME: Dolores Villa DATE: January 05, 2020 TIME: 10:17 AM PAGER/CONTACT #: [facility] PT EDon 01-05-2020 PT ED HNO ID: [id number] Author: Yakelin Vallejo) HELEN Phillips Service: Nursing Author Type: Registered Nurse Type: Patient Education Filed: 01/05/2020 10:15 AM Note Text: POST OP LEARNING RESPONSE INSTRUCTION PROVIDED TO: Patient and family member METHOD OF INSTRUCTION: Written instruction - handouts Verbal instruction PATIENT / FAMILY RESPONSE: Information received as demonstrated by interest and questions FOLLOW-UP PLAN: Patient instructed to call with any further issues SUPPLEMENTAL MATERIAL: None REFERRAL (RECOMMENDATION): None Electronically Signed By: Yakelin Phillips RN In Department: [facility] SURGERY [facility] PT ED HNO ID: [id number] Author: Isai (Rn) HELEN Calhonu Service: Nursing Author Type: Registered Nurse Type: Patient Education Filed: 01/05/2020 8:52 AM Note Text: PRE OP LEARNING ASSESSMENT PROCEDURE/SURGERY: SURGERY: Right, middle, trigger finger release. READINESS TO LEARN COGNITIVE ABILITY: Alert and oriented MOTIVATION TO LEARN: Eager FAMILY SUPPORT: High - Very involved in pt care PATIENT LEARNS BEST BY: Individual Instruction Verbal Instruction FACTORS AFFECTING LEARNING: None PHYSICAL LIMITATIONS AFFECTING LEARNING: None Electronically Signed By: Isai Calhoun RN In Department: [facility] SURGERY [facility] HOSPon 01-01-2020 HOSP Patient:Dolores Villa MRN: Height:5' 0(1.524 m) Weight:129 lb (58.514 kg) Outpatient Medications as of 01/05/20: rosuvastatin (CRESTOR) 40 mg tablet famotidine (PEPCID) 20 mg tablet blood sugar diagnostic (BLOOD GLUCOSE TEST) test strip levothyroxine (SYNTHROID) 75 mcg tablet metoprolol tartrate, short acting, (LOPRESSOR) 25 mg tablet glipiZIDE (GLUCOTROL) 5 mg tablet metFORMIN ER (GLUCOPHAGE XR) 500 mg 24 hr tablet lisinopril (ZESTRIL, PRINIVIL) 10 mg tablet Lancets lancets nitroglycerin sublingual (NITROQUICK) 0.4 mg SL tablet ACETAMINOPHEN/DIPHENHYD RAMINE (TYLENOL PM EXTRA STRENGTH ORAL) Bacillus coagulans (PROBIOTIC, B. COAGULANS,) 10 billion cell cpDR aspirin, enteric coated (ECOTRIN LOW STRENGTH) 81 mg ORAL EC tablet naproxen sodium(ALEVE 220 MG TAB) THERAPEUTIC MULTIVITAMIN TAB Admission/Clinic Administered Medications as of 01/05/20: lidocaine-EPINEPHrine 2 %-1:100,000 20 mL injection Problem List: Hypothyroidism [E03.9] Subacute thyroiditis [E06.1] Generalized osteoarthrosis, unspecified site [M15.9] Mixed hyperlipidemia [E78.2] Other benign neoplasm of connective and other soft tissue of unspecified site [D21.9] Other hammer toe (acquired) [M20.40] Exostosis of unspecified site [M89.8X9] Pain in joint, shoulder region [M25.519] Migraine [G43.909] GERD (gastroesophageal reflux disease) [K21.9] Occlusion and stenosis of carotid artery without mention of cerebral infarction [I65.29] CAD (coronary artery disease) [I25.10] Bronchitis [J40] Abdominal pain, unspecified site [R10.9] Diverticulitis of colon [K57.32] Sciatica [M54.30] SUMMARY [V999.95] Postsurgical percutaneous transluminal coronary angioplasty status [Z98.61] Esophagitis [K20.9] Esophagitis, unspecified [K20.9] Dupuytren's contracture [M72.0] Trigger ring finger of left hand [M65.342] Sacroiliitis, not elsewhere classified (HCC) [M46.1] Thoracic and lumbosacral neuritis [M54.14, M54.17] Barretts esophagus [K22.70] Sebaceous cyst [L72.3] History of lumbar laminectomy [Z98.890] Bulge of lumbar disc without myelopathy [M51.26] CKD (chronic kidney disease) stage 2, GFR 60-89 ml/min [N18.2] Trigger finger, right ring finger [M65.341] 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 [K22.70] History of colonic polyps [Z86.010] Chronic pain of left knee--since contusion [M25.562, G89.29] Thoracic aortic aneurysm without rupture (HCC) [I71.2] Allergies: Ativan [Lorazepam] Benzonatate Hctz [Hydrochlorothiazide] narcotics [Other] Seasonal Allergies Sulfa (Sulfonamide Antibiotics) Date Verified: 01/05/20 Lab Values No results within the last 30 days for the following basenames: K,HCT Progress Notes ([facility]): Cecelia Mcgraw Ma 01/01/2020 10:18 AM Signed Patient scheduled for right middle trigger finger release under local anesthesia on 01/05/2020. Triny Del Angel [facility] 01/01/2020 1:13 PM Signed Noted in [place]. Cecelia Chaparro Lucien Ma 01/01/2020 1:20 PM Signed Surgery has been scheduled as requested. Progress Notes ([facility]): Cecelia Mcgraw Yoli 01/01/2020 1:37 PM Signed AMB ROOMING INTAKE FLOWSHEET DATA Risk Screening Do you have concerns about personal safety or safety in the home?: No Pain Pain Level: 4 Pain Location: Hand-Right Description: Other: See comment(locking) Duration Amount of Time: 2 Duration Units: Months Frequency: Continuous Intervention: Splinting Patient here today with complaints of left middle trigger finger. States it locks down on her. She has been wearing a brace that was made at OT. PT ASSESSMENT - CASTING ROOM Dolores presents for Application of splint. Applied Size 9 oval 8 splint to Right hand, middle finger. Patient has been instructed in Care of splint. Cecelia Garcia MD 01/05/2020 7:09 AM Addendum Abhijit Garcia MD Department of Orthopaedics Orthopaedics [address] [place] [id number] Dept: [phone] Dept January 01, 2020 CHIEF COMPLAINT: Established Patient and Trigger Finger of the Right Hand Ms. Dolores Villa is a 74 year old female who presents with 4 out of 10 pain in the right hand. Middle finger is catching and locking and causing pain. ASSESSMENT: M65.331 Trigger middle finger of right hand (primary encounter diagnosis) PLAN: We reviewed again the risks, benefits, alternatives and potential complications involving both nonoperative and operative treatment. She would like to pursue trigger release under local anesthetic. Ms. Dolores Villa was advised as to contrast therapies and/or to take analgesics/anti-inflamm atories as needed and all contraindications were reviewed. OBJECTIVE: Ms. Dolores Villa is a pleasant 74 year old in no apparent distress. Gen:There were no vitals taken for this visit. nl development, non obese, no deformities ENT: Normocephalic, normal hearing, moist mucosa CV: Pulses:Radial= 2+ and symmetric, capillary refill < 2 secs, no peripheral edema/varicosities Heart: RRR Nml S1, S2 LUNGS: CTA B/l Skin: no rash, bruising or lesions. Good turgor. Psych: cooperative and appropriate, alert and oriented x 3, good mood and affect. Musculoskeletal: Tender to palpation at the A1 tao site of the left middle finger. Active locking of the digit as well. Imaging: deferred Supporting Subjective Information Below: Past Surgical History: PAST SURGICAL HISTORY Procedure Laterality Date - BX OF BREAST; INCISIONAL 75 Bx of breast, incisional- bilateral - CATARACT EXTRACTION HX 2012 - COLONOSCOP W/ OR W/O BRS SPEC 03/2004 Colonoscopy - COLONOSCOP W/ OR W/O BRSH SPEC 10/12/2018 Colonoscopy - EGD W/O BRSH SPECIMEN W/BX 04/03/11 - EGD W/O OR W/BRUSH/WASH 10/12/2018 EGD - INCISE FINGER TENDON SHEATH Right 08/22/2018 Right ring trigger finger release - INCISE FINGER TENDON SHEATH Left 03/16/2019 Left middle trigger finger release - LAMINECTOMY,LUMBAR October 04, 2015 Surgical Procedure/Date: lumbar laminectomy L4-5/October 04, 2015 - LAMINECTOMY,LUMBAR 07/18/2018 revision of L4-L5 - LUMPECTOMY/RADIOTHERAPY DIAG MAMM/A10 1974 right - PAST SURGICAL HISTORY OF 2006 left 2nd finger cyst removed - PAST SURGICAL HISTORY OF cyst from face - PAST SURGICAL HISTORY OF 08/22/2008 left 5th toe repair hammertoe 4th and 5th - PAST SURGICAL HISTORY OF 01/30/11 s/p PCI/CHRISTELLE to LAD with 2.75x15 Xience dilated to 3.4 - PAST SURGICAL HISTORY OF 2010 partial colectomy 8 in, for diverticulitis - PAST SURGICAL HISTORY OF remote right foot infection, ingrwn toenail - PAST SURGICAL HISTORY OF 10/06/2013 left hand 4th digit trigger release - REM LESIO TRUNK,ARM,LEG 1.1 -2.0CM 05/30/15 Exc. upper mid back David cyst - REMOVAL OF TONSILS,<12 Y/O Tonsillectomy - REVISE MEDIAN N/CARPAL TUNNEL SURG Left 09/14/2019 Left Carpal tunnel relese - VAGINAL HYSTERECTOMY 1985 uterus Medications: Current Outpatient Medications Medication Sig - rosuvastatin (CRESTOR) 40 mg tablet Take 1 tablet by mouth daily at bedtime. - famotidine (PEPCID) 20 mg tablet Take 1 tablet by mouth twice daily. - blood sugar diagnostic (BLOOD GLUCOSE TEST) test strip Test blood sugar(s) 1 time daily and as needed. Dx: Type 2 DM - Uncontrolled E11.9 Insulin: No - levothyroxine (SYNTHROID) 75 mcg tablet Take 1 tablet by mouth once daily. - metoprolol tartrate, short acting, (LOPRESSOR) 25 mg tablet Take 1 tablet by mouth twice daily. - glipiZIDE (GLUCOTROL) 5 mg tablet Take 1 tablet by mouth twice daily before meals. - metFORMIN ER (GLUCOPHAGE XR) 500 mg 24 hr tablet Take 2 tablets by mouth twice daily. As directed - lisinopril (ZESTRIL, PRINIVIL) 10 mg tablet Take 0.5 tablets by mouth once daily. - Lancets lancets Test blood sugar(s) 1 time daily and as needed. Dx: Type 2 DM - Uncontrolled E11.9 Insulin: No - ACETAMINOPHEN/DIPHENHYD RAMINE (TYLENOL PM EXTRA STRENGTH ORAL) Take by mouth. - Bacillus coagulans (PROBIOTIC, B. COAGULANS,) 10 billion cell cpDR Take by mouth once daily. - aspirin, enteric coated (ECOTRIN LOW STRENGTH) 81 mg ORAL EC tablet Take 1 tablet by mouth once daily. - THERAPEUTIC MULTIVITAMIN TAB Take one(1) tablet daily. - nitroglycerin sublingual (NITROQUICK) 0.4 mg SL tablet Dissolve 1 tablet under the tongue every 5 minutes as needed. As directed for chest pain. IF NO RELIEF CALL 911 - naproxen sodium(ALEVE 220 MG TAB) Take one(1) tablet every 8-12 hours as needed No current facility-administered medications for this visit. Allergies: Ativan [Lorazepam]; Benzonatate; Hctz [Hydrochlorothiazide]; Narcotics [Other]; Seasonal Allergies; Sulfa (Sulfonamide Antibiotics) ROS: General (negative for fatigue, malaise, weight loss/gain) HEENT (negative for headache, earache, recent vision changes, sinus pain, sore throat) Respiratory (no recent shortness of breath, hemoptysis) CV (negative for chest tightness, palpitations) Musculoskeletal (see HPI) Psych (no depression, anxiety) This note was partially generated using [employer] voice recognition system, and there may be some incorrect words, spellings, and punctuation that were not noted in checking the note before saving. Abhijit Garcia MD Previous Version Normal [facility] Influenza virus A and B and SARS-CoV-2 (COVID-19) Ag panel - Upper respiratory specim SARS-CoV-2 (COVID-19) RNA SHAUNA+probe Ql (Resp) [facility] [place] Work Phone: Vital Signs Date Time Vital Sign Value Performing Clinician Facility 08-14-2025 14:34-0400 Body height 152.[address] Matthew Spenecr MD Work Phone: [facility] [place] 08-14-2025 14:34-0400 Body mass index (BMI) [Ratio] 21.9 kg/m2 Dr. Matthew Spencer MD Work Phone: [facility] [place] 08-14-2025 14:34-0400 Body weight 50.[address] Matthew Spencer MD Work Phone: [facility] [place] 08-14-2025 14:34-0400 Diastolic blood pressure 57 mm[Hg] Dr. Matthew Spencer MD Work Phone: [facility] [place] 08-14-2025 14:34-0400 Heart rate 77 /min Dr. Matthew Spencer MD Work Phone: [facility] [place] 08-14-2025 14:34-0400 Respiratory rate 16 /min Dr. Matthew Spencer MD Work Phone: [facility] [place] 08-14-2025 14:34-0400 Systolic blood pressure 90 mm[Hg] Dr. Matthew Spencer MD Work Phone: [facility] [place] 06-20-2025 08:33-0400 Body height 152.4 cm Matthew Spencer MD Work Phone: [facility] 06-20-2025 08:33-0400 Body mass index (BMI) [Ratio] 23.08 kg/m2 Matthew Spencer MD Work Phone: [facility] 06-20-2025 08:33-0400 Body temperature 97.81 [degF] Matthew Spencer MD Work Phone: [facility] 06-20-2025 08:33-0400 Body weight 53.6 kg Matthew Spencer MD Work Phone: [facility] 06-20-2025 08:33-0400 Diastolic blood pressure 80 mm[Hg] Matthew Spencer MD Work Phone: [facility] 06-20-2025 08:33-0400 Heart rate 72 /min Matthew Spencer MD Work Phone: [facility] 06-20-2025 08:33-0400 Respiratory rate 20 /min Matthew Spencer MD Work Phone: [facility] 06-20-2025 08:33-0400 Systolic blood pressure 120 mm[Hg] Matthew Spencer MD Work Phone: [facility] 05-25-2025 09:45-0400 Body mass index (BMI) [Ratio] 22.69 kg/m2 Henrique Angela PROCESS LABORATORY SPECIALIST.INFORMATION CODER Work Phone: [facility] 05-25-2025 09:45-0400 Body weight 52.7 kg Henrique Angela PROCESS LABORATORY SPECIALIST.INFORMATION CODER Work Phone: [facility] 05-25-2025 09:45-0400 Diastolic blood pressure 66 mm[Hg] Henrique Angela PROCESS LABORATORY SPECIALIST.INFORMATION CODER Work Phone: [facility] 05-25-2025 09:45-0400 Heart rate 88 /min Henrique Angela PROCESS LABORATORY SPECIALIST.INFORMATION CODER Work Phone: [facility] 05-25-2025 09:45-0400 Respiratory rate 16 /min Henrique Angela PROCESS LABORATORY SPECIALIST.INFORMATION CODER Work Phone: [facility] 05-25-2025 09:45-0400 Systolic blood pressure 124 mm[Hg] Henrique Angela PROCESS LABORATORY SPECIALIST.INFORMATION CODER Work Phone: [facility] 02-04-2025 13:48-0400 Body mass index (BMI) [Ratio] 22.6 kg/m2 Rosaura Monk APRN.INFORMATION CODER Work Phone: [facility] 02-04-2025 13:48-0400 Body temperature 99.1 [degF] Rosaura Monk APRN.INFORMATION CODER Work Phone: [facility] 02-04-2025 13:48-0400 Body weight 52.5 kg Rosaura Monk APRN.INFORMATION CODER Work Phone: [facility] 02-04-2025 13:48-0400 Diastolic blood pressure 74 mm[Hg] Rosaura Monk APRN.INFORMATION CODER Work Phone: [facility] 02-04-2025 13:48-0400 Heart rate 122 /min Rosaura Monk APRN.INFORMATION CODER Work Phone: [facility] 02-04-2025 13:48-0400 Respiratory rate 20 /min Rosaura Monk APRN.INFORMATION CODER Work Phone: [facility] 02-04-2025 13:48-0400 SaO2% (BldA) [Mass fraction] 95 % Rosaura Monk APRN.INFORMATION CODER Work Phone: [facility] 02-04-2025 13:48-0400 Systolic blood pressure 126 mm[Hg] Rosaura Monk APRN.INFORMATION CODER Work Phone: [facility] 01-09-2025 10:52-0500 Body height 152.[address] Matthew Spencer MD Work Phone: [facility] [place] 01-09-2025 10:52-0500 Body mass index (BMI) [Ratio] 23.6 kg/m2 Dr. Matthew Spencer MD Work Phone: [facility] [place] 01-09-2025 10:52-0500 Body weight 54.[address] Matthew Spencer MD Work Phone: [facility] [place] 01-09-2025 10:52-0500 Diastolic blood pressure 72 mm[Hg] Dr. Matthew Spencer MD Work Phone: [facility] [place] 01-09-2025 10:52-0500 Heart rate 100 /min Dr. Matthew Spencer MD Work Phone: [facility] [place] 01-09-2025 10:52-0500 Respiratory rate 18 /min Dr. Matthew Spencer MD Work Phone: 8(724)910-394[address] [place] [address] 01-09-2025 10:52-0500 Systolic blood pressure 122 mm[Hg] Dr. Matthew Spencer MD Work Phone: 5(453)905-058300 [place] [address] 01-07-2025 16:00-0500 Diastolic blood pressure 70 mm[Hg] Dr. Matthew Spencer MD Work Phone: 2(595)805-631300 [place] [address] 01-07-2025 16:00-0500 Heart rate 80 /min Dr. Matthew Spencer MD Work Phone: 8(205)593-422800 [place] [address] 01-07-2025 16:00-0500 Respiratory rate 16 /min Dr. Matthew Spencer MD Work Phone: 9(254)433-344300 [place] [address] 01-07-2025 16:00-0500 SaO2% (BldA) [Mass fraction] 96 % Dr. Matthew Spencer MD Work Phone: 8(216)867-721900 [place] [address] 01-07-2025 16:00-0500 Systolic blood pressure 111 mm[Hg] Dr. Matthew Spencer MD Work Phone: 1(031)223-607700 [place] [address] 01-07-2025 11:58-0500 Body mass index (BMI) [Ratio] 25.4 kg/m2 Dr. Matthew Spencer MD Work Phone: 6(025)741-270700 [place] [address] 01-07-2025 11:58-0500 Body temperature 97.5 [degF] Dr. Matthew Spencer MD Work Phone: 3(596)445-202700 [place] [address] 01-07-2025 11:58-0500 Body weight 59.[address] Matthew Spencer MD Work Phone: 3(138)097-038200 [place] [address] 12-25-2024 13:55-0500 Body height 152.4 cm Maurilio Garcia MD Work Phone: 1(259)109-878392 [place] [address] 12-25-2024 13:55-0500 Body mass index (BMI) [Ratio] 23.44 kg/m2 Maurilio Garcia MD Work Phone: 5(230)011-655192 [place] [address] 12-25-2024 13:55-0500 Body temperature 97.7 [degF] Maurilio Garcia MD Work Phone: [facility] 12-25-2024 13:55-0500 Body weight 54.43 kg Maurilio Garcia MD Work Phone: [facility] 12-25-2024 13:55-0500 Diastolic blood pressure 78 mm[Hg] Maurilio Garcia MD Work Phone: [facility] 12-25-2024 13:55-0500 Heart rate 137 /min Maurilio Garcia MD Work Phone: [facility] 12-25-2024 13:55-0500 SaO2% (BldA) [Mass fraction] 95 % Maurilio Garcia MD Work Phone: [facility] 12-25-2024 13:55-0500 Systolic blood pressure 119 mm[Hg] Maurilio Garcia MD Work Phone: [facility] 12-18-2024 07:06-0500 Body mass index (BMI) [Ratio] 23.5 kg/m2 Dipika Hernandez PROCESS LABORATORY SPECIALIST.TRIM STENCIL MAKER Work Phone: [facility] 12-18-2024 07:06-0500 Body weight 55 kg Dipika Hernandez PROCESS LABORATORY SPECIALIST.TRIM STENCIL MAKER Work Phone: [facility] 12-18-2024 07:06-0500 Diastolic blood pressure 65 mm[Hg] Dipika Hernandez PROCESS LABORATORY SPECIALIST.TRIM STENCIL MAKER Work Phone: [facility] 12-18-2024 07:06-0500 Heart rate 67 /min Dipika Hernandez PROCESS LABORATORY SPECIALIST.TRIM STENCIL MAKER Work Phone: [facility] 12-18-2024 07:06-0500 Respiratory rate 16 /min Dipika Hernandez PROCESS LABORATORY SPECIALIST.TRIM STENCIL MAKER Work Phone: [facility] 12-18-2024 07:06-0500 Systolic blood pressure 119 mm[Hg] Dipika Hernandez PROCESS LABORATORY SPECIALIST.TRIM STENCIL MAKER Work Phone: [facility] 11-18-2024 14:38-0500 Body mass index (BMI) [Ratio] 24.22 kg/m2 Roel Athy PA-C Work Phone: [facility] 11-18-2024 14:38-0500 Body temperature 98.49 [degF] Roel Athy PA-C Work Phone: [facility] 11-18-2024 14:38-0500 Body weight 56.7 kg Roel Athy PA-C Work Phone: [facility] 11-18-2024 14:38-0500 Diastolic blood pressure 82 mm[Hg] Roel Athy PA-C Work Phone: [facility] 11-18-2024 14:38-0500 Heart rate 100 /min Roel Athy PA-C Work Phone: [facility] 11-18-2024 14:38-0500 Respiratory rate 20 /min Roel Athy PA-C Work Phone: [facility] 11-18-2024 14:38-0500 SaO2% (BldA) [Mass fraction] 95 % Roel Athy PA-C Work Phone: [facility] 11-18-2024 14:38-0500 Systolic blood pressure 112 mm[Hg] Roel Athy PA-C Work Phone: [facility] 09-11-2024 14:02-0400 Body mass index (BMI) [Ratio] 24.76 kg/m2 Cayla Viktor PROCESS LABORATORY SPECIALIST.INFORMATION CODER Work Phone: [facility] 09-11-2024 14:02-0400 Body weight 57.97 kg Cayla Viktor PROCESS LABORATORY SPECIALIST.INFORMATION CODER Work Phone: [facility] 09-11-2024 14:02-0400 Diastolic blood pressure 74 mm[Hg] Cayla Sahuarita PROCESS LABORATORY SPECIALIST.INFORMATION CODER Work Phone: [facility] 09-11-2024 14:02-0400 Systolic blood pressure 128 mm[Hg] Cayla Sahuarita PROCESS LABORATORY SPECIALIST.INFORMATION CODER Work Phone: [facility] 06-14-2024 08:05-0400 Body height 153 cm Matthew Spencer MD Work Phone: [facility] 06-14-2024 08:05-0400 Body mass index (BMI) [Ratio] 23.6 kg/m2 Matthew Spencer MD Work Phone: [facility] 06-14-2024 08:05-0400 Body temperature 98.29 [degF] Matthew Sepncer MD Work Phone: [facility] 06-14-2024 08:05-0400 Body weight 55.25 kg Matthew Spencer MD Work Phone: [facility] 06-14-2024 08:05-0400 Diastolic blood pressure 79 mm[Hg] Matthew Spencer MD Work Phone: [facility] 06-14-2024 08:05-0400 Heart rate 67 /min Matthew Spencer MD Work Phone: [facility] 06-14-2024 08:05-0400 Respiratory rate 18 /min Matthew Spencer MD Work Phone: [facility] 06-14-2024 08:05-0400 SaO2% (BldA) [Mass fraction] 98 % Matthew Spencer MD Work Phone: [facility] 06-14-2024 08:05-0400 Systolic blood pressure 125 mm[Hg] Matthew Spencer MD Work Phone: [facility] 01-14-2024 13:27-0500 Body temperature 97.88 [degF] DR MELQUIADES BENDER MD [facility] 01-14-2024 13:27-0500 Diastolic Blood Pressure Non-Invasive 64 mm[Hg] DR MELQUIADES BENDER MD [facility] 01-14-2024 13:27-0500 Heart rate 88 /min DR MELQUIADES BENDER MD [facility] 01-14-2024 13:27-0500 Reason For Taking VItal Signs DR MELQUIADES BENDER MD [facility] 01-14-2024 13:27-0500 Respiratory rate 16 /min DR MELQUIADES BENDER MD [facility] 01-14-2024 13:27-0500 Systolic Blood Pressure Non-Invasive 122 mm[Hg] DR MELQUIADES BENDER MD [facility] 01-14-2024 12:16-0500 Heart rate 103 /min DR MELQUIADES BENDER MD [facility] 01-14-2024 11:36-0500 Heart rate 107 /min DR MELQUIADES BENDER MD [facility] 01-14-2024 11:20-0500 Body temperature 98.24 [degF] DR MELQUIADES BENDER MD [facility] 01-14-2024 11:20-0500 Diastolic Blood Pressure Non-Invasive 67 mm[Hg] DR MELQUIADES BENDER MD [facility] 01-14-2024 11:20-0500 Respiratory rate 16 /min DR MELQUIADES BENDER MD [facility] 01-14-2024 11:20-0500 Systolic Blood Pressure Non-Invasive 127 mm[Hg] DR MELQUIADES BENDER MD [facility] 01-14-2024 08:52-0500 Heart rate 150 /min DR MELQUIADES BENDER MD [facility] 01-14-2024 06:31-0500 Body temperature 99.68 [degF] DR MELQUIADES BENDER MD [facility] 01-14-2024 06:31-0500 Diastolic Blood Pressure Non-Invasive 80 mm[Hg] DR MELQUIADES BENDER MD [facility] 01-14-2024 06:31-0500 Respiratory rate 16 /min DR MELQUIADES BENDER MD [facility] 01-14-2024 06:31-0500 Systolic Blood Pressure Non-Invasive 137 mm[Hg] DR MELQUIADES BENDER MD [facility] 01-14-2024 04:07-0500 Heart rate 111 /min DR MELQUIADES BENDER MD [facility] 01-13-2024 23:40-0500 Heart rate 98 /min DR MELQUIADES BENDER MD [facility] 01-13-2024 21:37-0500 Heart rate 150 /min DR MELQUIADES BENDER MD [facility] 01-13-2024 21:25-0500 Heart rate 152 /min DR MELQUIADES BENDER MD [facility] 01-11-2024 12:20-0500 Body height 152.[address] MELQUIADES BENDER MD [facility] 01-11-2024 12:20-0500 Body weight 53.[address] MELQUIADES BENDER MD [facility] 01-11-2024 12:20-0500 Body weight 23.12 kg/m2 DR MELQUIADES BENDER MD [facility] 01-11-2024 10:25-0500 Body temperature 97.7 [degF] DR MELQUIADES BENDER MD [facility] 01-11-2024 10:10-0500 Respiratory Rate - Anes 13 br/min DR MELQUIADES BENDER MD [facility] 01-11-2024 10:05-0500 Body temperature 97.45 [degF] DR MELQUIDAES BENDER MD [facility] 01-11-2024 10:05-0500 Respiratory Rate - Anes 11 br/min DR MELQUIADES BENDER MD [facility] 01-11-2024 10:00-0500 Body temperature 97.38 [degF] DR MELQUIADES BENDER MD [facility] 01-11-2024 10:00-0500 Respiratory Rate - Anes 10 br/min DR MELQUIADES BENDER MD [facility] 01-11-2024 09:55-0500 Body temperature 97.34 [degF] DR MELQUIADES BENDER MD [facility] 01-11-2024 07:20-0500 Body weight 23.12 kg/m2 DR MELQUIADES BENDER MD [facility] 01-11-2024 06:41-0500 Body height 152.[address] MELQUIADES BENDER MD [facility] 01-11-2024 06:41-0500 Body temperature 96.98 [degF] DR MELQUIADES BENDER MD [facility] 01-11-2024 06:41-0500 Body weight 53.[address] MELQUIADES BENDER MD [facility] 12-17-2023 11:00-0500 Blood Pressure Cuff Size DR MELQUIADES BENDER MD [facility] 12-17-2023 11:00-[address] MELQUIADES BENDER MD [facility] 12-17-2023 11:00-[address] MELQUIADES Alvarez [facility] 12-17-2023 11:00-0500 Body height 152.[address] MELQUIADES BENDER MD [facility] 12-17-2023 11:00-0500 Body weight 53.[address] MELQUIADES BENDER MD [facility] 12-17-2023 11:00-0500 Body weight 23.12 kg/m2 DR MELQUIADES BENDER MD [facility] 12-17-2023 11:00-0500 Diastolic Blood Pressure Non-Invasive 72 mm[Hg] DR MELQUIADES BENDER MD [facility] 12-17-2023 11:00-0500 Heart rate 50 /min DR MELQUIADES BENDER MD [facility] 12-17-2023 11:00-0500 Systolic Blood Pressure Non-Invasive 117 mm[Hg] DR MELQUIADES BENDER MD [facility] 11-24-2023 16:48-0500 Body temperature 98.6 [degF] Matthew Spencer MD Work Phone: [facility] 11-24-2023 16:48-0500 Body weight 57.56 kg Matthew Spencer MD Work Phone: [facility] 11-24-2023 16:48-0500 Diastolic blood pressure 81 mm[Hg] Matthew Spencer MD Work Phone: [facility] 11-24-2023 16:48-0500 Heart rate 74 /min Matthew Spencer MD Work Phone: [facility] 11-24-2023 16:48-0500 Respiratory rate 18 /min Matthew Spencer MD Work Phone: [facility] 11-24-2023 16:48-0500 SaO2% (BldA) [Mass fraction] 99 % Matthew Spencer MD Work Phone: [facility] 11-24-2023 16:48-0500 Systolic blood pressure 144 mm[Hg] Matthew Spencer MD Work Phone: [facility] 11-08-2023 10:47-0500 Body weight 57.15 kg Henrique Angela PROCESS LABORATORY SPECIALIST.INFORMATION CODER Work Phone: [facility] 11-08-2023 10:47-0500 Diastolic blood pressure 60 mm[Hg] Henrique Angela PROCESS LABORATORY SPECIALIST.INFORMATION CODER Work Phone: [facility] 11-08-2023 10:47-0500 Heart rate 89 /min Henrique Angela PROCESS LABORATORY SPECIALIST.INFORMATION CODER Work Phone: [facility] 11-08-2023 10:47-0500 SaO2% (BldA) [Mass fraction] 96 % Henrique Angela PROCESS LABORATORY SPECIALIST.INFORMATION CODER Work Phone: [facility] 11-08-2023 10:47-0500 Systolic blood pressure 104 mm[Hg] Henrique Angela PROCESS LABORATORY SPECIALIST.INFORMATION CODER Work Phone: [facility] 08-20-2023 13:58-0400 Body height 152.[address] Matthew Spencer Work Phone: [facility] 08-20-2023 13:58-0400 Body mass index (BMI) [Ratio] 24.7 kg/m2 Dr. Matthew Spencer Work Phone: [facility] [place] 08-20-2023 13:58-0400 Body weight 57.[address] Matthew Spencer Work Phone: [facility] [place] 08-20-2023 13:58-0400 Diastolic blood pressure 72 mm[Hg] Dr. Matthew Spencer Work Phone: [facility] 08-20-2023 13:58-0400 Heart rate 90 /min Dr. Matthew Spencer Work Phone: [facility] [place] 08-20-2023 13:58-0400 Respiratory rate 18 /min Dr. Matthew Spencer Work Phone: [facility] 08-20-2023 13:58-0400 SaO2% (BldA) [Mass fraction] 95 % Dr. Matthew Spencer Work Phone: [facility] [place] 08-20-2023 13:58-0400 Systolic blood pressure 120 mm[Hg] Dr. Matthew Spencer Work Phone: [facility] 07-21-2023 08:48-0400 Body temperature 99 [degF] [facility] PROCESS LABORATORY SPECIALIST.INFORMATION CODER Work Phone: [facility] 07-21-2023 08:48-0400 Body weight 55.79 kg [facility] PROCESS LABORATORY SPECIALIST.INFORMATION CODER Work Phone: [facility] 07-21-2023 08:48-0400 Diastolic blood pressure 62 mm[Hg] [facility] PROCESS LABORATORY SPECIALIST.INFORMATION CODER Work Phone: [facility] 07-21-2023 08:48-0400 Heart rate 96 /min [facility] PROCESS LABORATORY SPECIALIST.INFORMATION CODER Work Phone: [facility] 07-21-2023 08:48-0400 Respiratory rate 18 /min [facility] PROCESS LABORATORY SPECIALIST.INFORMATION CODER Work Phone: [facility] 07-21-2023 08:48-0400 SaO2% (BldA) [Mass fraction] 97 % [facility] PROCESS LABORATORY SPECIALIST.INFORMATION CODER Work Phone: [facility] 07-21-2023 08:48-0400 Systolic blood pressure 108 mm[Hg] [facility] PROCESS LABORATORY SPECIALIST.INFORMATION CODER Work Phone: [facility] 06-14-2023 11:17-0400 Body temperature 98.6 [degF] Matthew Spencer MD Work Phone: [facility] 06-14-2023 11:17-0400 Body weight 53.98 kg Matthew Spencer MD Work Phone: [facility] 06-14-2023 11:17-0400 Diastolic blood pressure 58 mm[Hg] Matthew Spencer MD Work Phone: [facility] 06-14-2023 11:17-0400 Heart rate 76 /min Matthew Spencer MD Work Phone: [facility] 06-14-2023 11:17-0400 Respiratory rate 18 /min Matthew Spencer MD Work Phone: [facility] 06-14-2023 11:17-0400 SaO2% (BldA) [Mass fraction] 96 % Matthew Spencer MD Work Phone: [facility] 06-14-2023 11:17-0400 Systolic blood pressure 102 mm[Hg] Matthew Spencer MD Work Phone: [facility] 11-16-2022 14:27-0500 Heart rate 114 /min Dr. Matthew Spencer Work Phone: [facility] Work Phone: 11-16-2022 14:27-0500 SaO2% (BldA) [Mass fraction] 94 % Dr. Matthew Spencer Work Phone: [facility] Work Phone: 11-16-2022 13:17-0500 Body height 152.[address] Matthew Spencer Work Phone: [facility] [place] Work Phone: 11-16-2022 13:17-0500 Body mass index (BMI) [Ratio] 26.5 kg/m2 Dr. Matthew Spencer Work Phone: [facility] [place] Work Phone: 11-16-2022 13:17-0500 Body temperature 97.3 [degF] Dr. Matthew Spencer Work Phone: [facility] [place] Work Phone: 11-16-2022 13:17-0500 Body weight 61.[address] Matthew Spencer Work Phone: [facility] [place] Work Phone: 11-16-2022 13:17-0500 Diastolic blood pressure 115 mm[Hg] Dr. Matthew Spencer Work Phone: [facility] [place] Work Phone: 11-16-2022 13:17-0500 Respiratory rate 18 /min Dr. Matthew Spencer Work Phone: [facility] [place] Work Phone: 11-16-2022 13:17-0500 Systolic blood pressure 136 mm[Hg] Dr. Matthew Spencer Work Phone: [facility] [place] Work Phone: 11-10-2022 08:30-0500 Body weight 60.78 kg Dipika Hernandez PROCESS LABORATORY SPECIALIST.TRIM STENCIL MAKER Work Phone: [facility] 11-10-2022 08:30-0500 Diastolic blood pressure 72 mm[Hg] Dipika Hernandez PROCESS LABORATORY SPECIALIST.TRIM STENCIL MAKER Work Phone: [facility] 11-10-2022 08:30-0500 Heart rate 87 /min Dipika Hernandez PROCESS LABORATORY SPECIALIST.TRIM STENCIL MAKER Work Phone: [facility] 11-10-2022 08:30-0500 Respiratory rate 16 /min Dipika Hernandez PROCESS LABORATORY SPECIALIST.TRIM STENCIL MAKER Work Phone: [facility] 11-10-2022 08:30-0500 SaO2% (BldA) [Mass fraction] 98 % Dipika Hernandez PROCESS LABORATORY SPECIALIST.TRIM STENCIL MAKER Work Phone: [facility] 11-10-2022 08:30-0500 Systolic blood pressure 116 mm[Hg] Dipika Hernandez PROCESS LABORATORY SPECIALIST.TRIM STENCIL MAKER Work Phone: [facility] 10-26-2022 10:24-0500 Body weight 61.24 kg Cayla Viktor PROCESS LABORATORY SPECIALIST.INFORMATION CODER Work Phone: [facility] 10-26-2022 10:24-0500 Diastolic blood pressure 58 mm[Hg] Cayla Viktor PROCESS LABORATORY SPECIALIST.INFORMATION CODER Work Phone: [facility] 10-26-2022 10:24-0500 Systolic blood pressure 102 mm[Hg] Cayla Viktor PROCESS LABORATORY SPECIALIST.INFORMATION CODER Work Phone: [facility] 10-12-2022 11:33-0500 Body mass index (BMI) [Ratio] 25.4 kg/m2 Dr. Matthew Spencer Work Phone: [facility] [place] Work Phone: 10-12-2022 11:33-0500 Body weight 58.[address] Matthew Spencer Work Phone: [facility] [place] Work Phone: 10-12-2022 11:33-0500 Diastolic blood pressure 75 mm[Hg] Dr. Matthew Spencer Work Phone: [facility] [place] Work Phone: 10-12-2022 11:33-0500 Heart rate 75 /min Dr. Matthew Spencer Work Phone: [facility] [place] Work Phone: 10-12-2022 11:33-0500 Respiratory rate 18 /min Dr. Matthew Spenecr Work Phone: [facility] [place] Work Phone: 10-12-2022 11:33-0500 SaO2% (BldA) [Mass fraction] 99 % Dr. Matthew Spencer Work Phone: [facility] [place] Work Phone: 10-12-2022 11:33-0500 Systolic blood pressure 110 mm[Hg] Dr. Matthew Spencer Work Phone: [facility] [place] Work Phone: 06-03-2022 09:42-0400 Body height 152.[address] Matthew Spencer Work Phone: [facility] [place] Work Phone: 06-03-2022 09:42-0400 Body mass index (BMI) [Ratio] 25.5 kg/m2 Dr. Matthew Spencer Work Phone: [facility] [place] Work Phone: 06-03-2022 09:42-0400 Body weight 59.[address] Matthew Spencer Work Phone: [facility] [place] Work Phone: 06-03-2022 09:42-0400 Diastolic blood pressure 58 mm[Hg] Dr. Matthew Spencer Work Phone: [facility] [place] Work Phone: 06-03-2022 09:42-0400 Heart rate 81 /min Dr. Matthew Spencer Work Phone: [facility] [place] Work Phone: 06-03-2022 09:42-0400 Respiratory rate 18 /min Dr. Matthew Spencer Work Phone: [facility] [place] Work Phone: 06-03-2022 09:42-0400 SaO2% (BldA) [Mass fraction] 95 % Dr. Matthew Spencer Work Phone: [facility] [place] Work Phone: 06-03-2022 09:42-0400 Systolic blood pressure 109 mm[Hg] Dr. Matthew Spencer Work Phone: [facility] [place] Work Phone: 05-11-2022 08:41-0400 Body weight 60.33 kg Matthew Spencer MD Work Phone: [facility] 05-11-2022 08:41-0400 Diastolic blood pressure 62 mm[Hg] Matthew Spencer MD Work Phone: [facility] 05-11-2022 08:41-0400 Heart rate 87 /min Matthew Spencer MD Work Phone: [facility] 05-11-2022 08:41-0400 SaO2% (BldA) [Mass fraction] 97 % Matthew Spencer MD Work Phone: [facility] 05-11-2022 08:41-0400 Systolic blood pressure 104 mm[Hg] Matthew Spencer MD Work Phone: [facility] 03-24-2022 07:42-0400 Body height 152.[address] Matthew Spencer Work Phone: [facility] [place] Work Phone: 03-24-2022 07:42-0400 Body weight 60.[address] Matthew Spencer Work Phone: [facility] [place] Work Phone: 03-23-2022 08:00-0400 Body mass index (BMI) [Ratio] 25.9 kg/m2 Dr. Matthew Spencer Work Phone: [facility] [place] Work Phone: 03-02-2022 10:56-0400 Body weight 60.[address] Matthew Spencer Work Phone: [facility] [place] Work Phone: 03-02-2022 10:56-0400 Diastolic blood pressure 62 mm[Hg] Dr. Matthew Spencer Work Phone: [facility] [place] Work Phone: 03-02-2022 10:56-0400 Heart rate 68 /min Dr. Matthew Spencer Work Phone: [facility] [place] Work Phone: 03-02-2022 10:56-0400 Respiratory rate 16 /min Dr. Matthew Spencer Work Phone: [facility] [place] Work Phone: 03-02-2022 10:56-0400 Systolic blood pressure 108 mm[Hg] Dr. Matthew Spencer Work Phone: [facility] [place] Work Phone: 03-02-2022 10:56-0400 Body height 152.[address] Matthew Spencer Work Phone: [facility] [place] Work Phone: 03-02-2022 10:56-0400 Body weight 60.[address] Matthew Spencer Work Phone: [facility] [place] Work Phone: 03-02-2022 10:56-0400 Diastolic blood pressure 62 mm[Hg] Dr. Matthew Spencer Work Phone: [facility] [place] Work Phone: 03-02-2022 10:56-0400 Heart rate 68 /min Dr. Matthew Spencer Work Phone: [facility] [place] Work Phone: 03-02-2022 10:56-0400 Respiratory rate 16 /min Dr. Matthew Spencer Work Phone: [facility] [place] Work Phone: 03-02-2022 10:56-0400 Systolic blood pressure 108 mm[Hg] Dr. Matthew Spencer Work Phone: [facility] [place] Work Phone: 05-08-2021 08:46-0400 Body mass index (BMI) [Ratio] 25.9 kg/m2 Dr. Matthew Spencer Work Phone: [facility] [place] Work Phone: 05-08-2021 08:46-0400 Body mass index (BMI) [Ratio] 25.9 kg/m2 Dr. Matthew Spencer Work Phone: [facility] [place] Work Phone: Encounters Encounter Date Encounter Type Care Provider Facility Start: 09-18-2025 ambulatory Matthew Spencer Facilit y:[facility] Start: 09-18-2025 End: 09-18-2025 ambulatory Tae Timi Facility:[facility] [place] Start: 08-14-2025 End: 08-14-[address] Tae Capellan MD -[facility] Work Phone: Start: 08-14-2025 End: 08-14-[address] Matthew Spencer MD Work Phone: -[facility] Start: 07-20-2025 End: 07-20-2025 ambulatory MATTHEW SPENCER Facility:[facility] Start: 07-13-2025 End: 07-13-2025 Patient Outreach Fiona Shin RN Work Phone: System Support Developer Management Comment on above: Transition Of Care ( Chart review) Start: 06-20-2025 End: 06-20-2025 ambulatory MATTHEW SPENCER Facility:[facility] Start: 06-20-2025 End: 06-20-2025 Patient encounter procedure Matthew Spencer MD Work Phone: [facility] [place] Comment on above: Medicare annual [facility], subsequent (Primary Dx); Controlled type 2 diabetes mellitus with microalbuminuria, without long-term current use of insulin (HCC); Stage 3b chronic kidney disease (HCC); Acquired hypothyroidism; Persistent atrial fibrillation (HCC); Coronary artery disease involving [place] heart without angina pectoris, unspecified vessel or lesion type; Vitamin D deficiency; Pure hypercholesterolemia; Encounter for long-term current use of medication; Encounter for immunization Start: 06-19-2025 End: 06-19-2025 Follow-up encounter Dipika Hernandez 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 Work Phone: [facility] [place] Start: 06-19-2025 End: 06-19-2025 ambulatory MATTHEW SPENCER Facility:[facility] Start: 06-11-2025 End: 06-11-2025 ambulatory HENRIQUE GARCIA Facility:[facility] Start: 06-06-2025 End: 06-08-2025 Telephone encounter Matthew Spencer MD Work Phone: [facility] [place] Comment on above: Lab Orders Start: 06-04-2025 End: 08-04-2025 Follow-up encounter Henrique Garcia APRN.INFORMATION CODER Work Phone: [facility] [place] Start: 05-25-2025 End: 05-25-2025 Subsequent hospital visit by physician Corrina [facility] [place] Work Phone: Radiology Comment on above: Fall, initial encoun ter [W19.XXXA] Start: 05-25-2025 End: 05-25-2025 Patient encounter procedure Henrique Garcia APRN.INFORMATION CODER Work Phone: [facility] [place] Comment on above: Fall, initial encoun ter (Primary Dx); Rib pain on left side; Left flank pain Start: 05-25-2025 End: 05-25-2025 ambulatory Matthew Spencer MD Work Phone: [facility] [place] Comment on above: Fall; Back Pain Start: 04-30-2025 End: 04-30-2025 Refill Matthew Spencer MD Work Phone: [facility] [place] Comment on above: Refill Request Start: 04-03-2025 End: 04-16-2025 Telephone encounter Matthew Spencer MD Work Phone: [facility] [place] Comment on above: weight loss Start: 03-08-2025 End: 03-12-2025 Refill Matthew Spencer MD Work Phone: [facility] [place] Comment on above: Refill Request Start: 02-17-2025 End: 02-19-2025 Refill Matthew Spencer MD Work Phone: [facility] [place] Comment on above: Refill Request Start: 02-15-2025 End: 02-15-2025 ambulatory Tae Timi Facility:[facility] Start: 02-08-2025 End: 04-10-2025 Follow-up encounter Dipika Hernandez 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 Work Phone: [facility] [place] Start: 02-05-2025 End: 02-05-2025 Follow-up encounter Rosaura Monk APRN.INFORMATION CODER Work Phone: [facility] Start: 02-05-2025 End: 02-05-2025 ambulatory MATTHEW D TALAMPAS Facility:[facility] Start: 02-05-2025 End: 02-05-2025 Subsequent hospital visit by physician Xr [facility] Work Phone: Radiology Comment on above: Acute cough [R05.1] Start: 02-04-2025 End: 02-04-2025 ambulatory MATTHEW D SUMANAMPAS Facility:[facility] Start: 02-04-2025 End: 02-04-2025 Patient encounter procedure Rosaura Monk APRN.INFORMATION CODER Work Phone: [facility] Comment on above: Rhinosinusitis (Prim bobbi Dx); Acute cough Start: 01-25-2025 ambulatory Matthew Antonio Spencer Facilit y:[facility] Start: 01-25-2025 Non-patient / Non-visit Dr. Tae ayala MD -[facility] Start: 01-24-2025 End: 01-24-[address] Tae Capellan MD -Cardiovascular Services Work Phone: Start: 01-24-2025 End: 01-24-[address] Matthew Spencer MD Work Phone: [facility] [place] Work Phone: Start: 01-24-2025 End: 01-24-2025 ambulatory Matthew Spencer Facility:[facility] [place] Start: 01-19-2025 End: 01-19-2025 ambulatory MATTHEW D TJ Facility:[facility] Start: 01-09-2025 End: 01-09-2025 Telephone encounter Matthew Spencer MD Work Phone: [facility] Comment on above: Results, Lab Start: 01-09-2025 End: 01-09-[address] Tae Capellan MD -[facility] Work Phone: Start: 01-09-2025 End: 01-09-2025 ambulatory Matthew Spencer [place] [place] Start: 01-07-2025 End: 01-07-2025 Emergency department patient visit Dr. Baldemar Mooney MD -Emergency Department Work Phone: Start: 12-25-2024 End: 12-25-2024 ambulatory [facility] Facility:[facility] Start: 12-25-2024 End: 12-25-2024 Patient encounter procedure Maurilio Garcia MD Work Phone: General Surgery Comment on above: Gastroesophageal ref lux disease, unspecified whether esophagitis present; 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 Start: 12-25-2024 End: 02-21-2025 Telephone encounter Maurilio Garcia MD Work Phone: General Surgery Comment on above: 01-01-2025 [place] Start: 12-20-2024 End: 12-20-2024 Refill Matthew Spencer MD Work Phone: [facility] [place] Comment on above: Refill Request (in g new mail order) Start: 12-18-2024 End: 12-18-2024 ambulatory MATTHEW SPENCER Facility:[facility] Start: 12-18-2024 End: 12-18-2024 Office outpatient visit 25 minutes Dipika Hernandez 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 Work Phone: [facility] [place] Comment on above: Type 2 diabetes suzy itus with stage 3a chronic kidney disease, without long-term current use of insulin (HCC) (Primary Dx); PAF (paroxysmal atrial fibrillation) (HCC); Coronary artery disease involving [place] heart without angina pectoris, unspecified vessel or lesion type; Mixed hyperlipidemia; Stage 3a chronic kidney disease (HCC); Acquired hypothyroidism; Gastroesophageal reflux disease, unspecified whether esophagitis present; Bilateral carotid artery stenosis; 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; Encounter for immunization; Screening for depression; Encounter for screening examination for other mental health and behavioral disorders Start: 12-02-2024 End: 12-04-2024 Refill Matthew Spencer MD Work Phone: [facility] [place] Comment on above: Refill Request Start: 11-21-2024 End: 11-21-2024 Telephone encounter Jaclyn Spears APRN.INFORMATION CODER Work Phone: [facility] Start: 11-19-2024 End: 11-19-2024 ambulatory Sharla Mckeon RN NURSE JIGSAW OPERATOR Comment on above: FYI-No Action Needed Start: 11-19-2024 End: 11-19-2024 Telephone encounter Sarah Valencia APRN.CNP Work Phone: [facility] Start: 11-18-2024 End: 11-18-2024 ambulatory MATTHEW SPENCER Facility:[facility] Start: 11-18-2024 End: 11-18-2024 Patient encounter procedure Roel Elkins PA-C Work Phone: [facility] Comment on above: Eyelid lesion (Prima ry Dx) Start: 11-09-2024 End: 11-09-2024 Refill Matthew Spencer MD Work Phone: [facility] [place] Comment on above: Refill Request Start: 10-09-2024 End: 10-09-2024 Telephone encounter Cayla Hoffman APRN.INFORMATION CODER Work Phone: OB/Gynecology Comment on above: vaginal lumps Start: 09-27-2024 ambulatory Matthew Spencer Facilit y:[facility] Start: 09-26-2024 End: 09-27-2024 Refill Matthew Spencer MD Work Phone: [facility] [place] Comment on above: Refill Request Start: 09-12-2024 End: 09-12-2024 Telephone encounter Cayla Hoffman APRN.CNP Work Phone: OB/Gynecology Comment on above: Results Start: 09-11-2024 End: 09-11-2024 Patient encounter procedure Cayla Hoffman APRN.INFORMATION CODER Work Phone: OB/Gynecology Comment on above: Vulvar lesion (Prima ry Dx); Cellulitis of perineum Start: 06-14-2024 End: 06-14-2024 Patient encounter procedure Matthew Spencer MD Work Phone: [facility] [place] Comment on above: Medicare annual well ness visit, subsequent (Primary Dx); Controlled type 2 diabetes mellitus without complication, without long-term current use of insulin (HCC); Acquired hypothyroidism; Vitamin D deficiency; Stage 3b chronic kidney disease (HCC); PURE HYPERCHOLESTEROLEM; Coronary artery disease involving [place] heart without angina pectoris, unspecified vessel or lesion type; 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; Thoracic aortic aneurysm without rupture, unspecified part (HCC); Encounter for long-term current use of medication Start: 04-18-2024 Refill Matthew otero MD Work Phone: [facility] [place] Comment on above: Refill Request Start: 03-22-2024 Refill Matthew otero MD Work Phone: [facility] [place] Comment on above: Refill Request Start: 01-26-2024 End: 01-26-2024 Office outpatient visit 25 minutes Matthew Spencer MD Work Phone: [facility] [place] Comment on above: Controlled type 2 di abetes mellitus without complication, without long-term current use of insulin ([facility]) (Primary Dx); PAF (paroxysmal atrial fibrillation) ([facility]); Stage 3b chronic kidney disease ([facility]); Status post replacement of left shoulder joint Start: 01-11-2024 End: 01-14-2024 Evaluation and management of inpatient DR MELQUIADES BENDER MD Facility:[facility] Start: 01-11-2024 End: 01-14-2024 Evaluation and management of inpatient DR MELQUIADES BENDER MD [facility] Start: 12-22-[address] Eugene Spencer MD Work Phone: [facility] [place] Start: 12-17-2023 End: 12-18-[address] MELQUIADES BENDER MD Facility:[facility] Start: 12-17-2023 End: 12-17-[address] MELQUIADES BENDER MD [facility] Start: 12-17-2023 End: 12-17-[address] MELQUIADES BENDER MD [facility] Start: 11-26-2023 ambulatory MATTHEW SPENCER Facilit y:[id number] Start: 11-24-2023 End: 11-24-2023 Office outpatient visit 10 minutes Matthew Spencer MD Work Phone: [facility] [place] Comment on above: Swelling of limb (Pr imary Dx); Popliteal fullness Start: 11-08-2023 Telephone encounter Henrique domingo PROCESS LABORATORY SPECIALIST.INFORMATION CODER Work Phone: [facility] [place] Comment on above: Language Arts Teacher - O ther Start: 11-08-2023 End: 11-08-2023 Patient encounter procedure Henrique Garcia PROCESS LABORATORY SPECIALIST.INFORMATION CODER Work Phone: [facility] [place] Comment on above: Chronic shoulder caleb n, unspecified laterality (Primary Dx); PAF (paroxysmal atrial fibrillation) (HCC); Thoracic aortic aneurysm without rupture, unspecified part (HCC); Acquired hypothyroidism; Mixed hyperlipidemia; Hypertensive kidney disease with stage 3a chronic kidney disease (HCC); Type 2 diabetes mellitus with stage 3a chronic kidney disease, without long-term current use of insulin (HCC); Encounter for immunization Start: 10-04-2023 Telephone encounter Matthew sprague MD Work Phone: [facility] [place] Comment on above: [facility] calling fo r OV notes (appears to be scammer) Start: 09-24-2023 Telephone encounter Matthew sprague MD Work Phone: [facility] [place] Comment on above: Orders Start: 09-22-2023 Telephone encounter Matthew sprague MD Work Phone: [facility] [place] Comment on above: Information Start: 09-09-2023 Non-patient / Non-visit Dr. Karol Spencer Work Phone: [facility] Start: 09-09-2023 End: 09-09-[address] Matthew Spencer Work Phone: [facility] [place] Work Phone: Start: 09-09-2023 End: 09-09-[address] Matthew Spencer Work Phone: [facility] [place]Cardiovascul [facility] Services Work Phone: Start: 08-20-2023 Telephone encounter Matthew sprague MD Work Phone: [facility] [place] Comment on above: Faxed to [facility] Start: 08-20-2023 End: 08-20-[address] Matthew Spencer Work Phone: [facility] Work Phone: Start: 07-30-2023 Refill Matthew otero MD Work Phone: [facility] [place] Comment on above: Refill Request; prop hylaxis antibiotics Start: 07-21-2023 End: 07-21-2023 Subsequent hospital visit by physician Xr [facility] [place] Work Phone: Radiology Comment on above: Acute cough [R05.1] Start: 07-21-2023 End: 07-21-2023 Office outpatient visit 25 minutes Charles Salinas APRN.CNP Work Phone: [facility] Comment on above: Acute cough (Primary Dx); Bacterial sinusitis Start: 06-16-2023 Refill Matthew otero MD Work Phone: [facility] [place] Comment on above: Refill Request Start: 06-14-2023 End: 06-14-2023 Office outpatient visit 25 minutes Matthew Spencer MD Work Phone: [facility] [place] Comment on above: Type 2 diabetes suzy itus with stage 3a chronic kidney disease, without long-term current use of insulin (HCC) (Primary Dx); Acquired hypothyroidism; Coronary artery disease involving [place] heart without angina pectoris, unspecified vessel or lesion type; Microalbuminuria due to type 2 diabetes mellitus (HCC); Vitamin D deficiency; 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; Dilated aortic root (HCC) Start: 11-24-2022 Refill Matthew otero MD Work Phone: [facility] Comment on above: Refill Request Start: 11-16-2022 End: 11-16-2022 Emergency department patient visit Dr. Matthew Spencer Work Phone: [facility] [place]-Emergency Department Start: 11-10-2022 End: 11-10-2022 Office outpatient visit 25 minutes Dipika Hernandez APRN.CNS Work Phone: [facility] [place] Comment on above: Controlled type 2 di abetes mellitus without complication, without long-term current use of insulin (HCC) (Primary Dx); Need for shingles vaccine; Coronary artery disease involving [place] heart without angina pectoris, unspecified vessel or lesion type; Decreased hemoglobin; Gastroesophageal reflux disease, unspecified whether esophagitis present; Acquired hypothyroidism; Type 2 diabetes mellitus with stage 3a chronic kidney disease, without long-term current use of insulin (HCC); Mixed hyperlipidemia; Depression, unspecified depression type Start: 11-05-2022 Refill Matthew otero MD Work Phone: [facility] [place] Comment on above: Refill Request Start: 10-26-2022 End: 10-26-2022 Patient encounter procedure Cayla Hoffman APRN.INFORMATION CODER Work Phone: OB/Gynecology Comment on above: Vaginal irritation ( Primary Dx) Start: 10-19-2022 Refill Matthew otero MD Work Phone: Internal [facility] Comment on above: Refill Request Start: 10-12-2022 End: 10-12-[address] Matthew Spencer Work Phone: [facility] Start: 10-01-2022 Refill Mathtew otero MD Work Phone: Internal [facility] Comment on above: Refill Request Start: 06-22-2022 Telephone encounter Matthew sprague MD Work Phone: Internal [facility] Comment on above: Medication Question Start: 06-03-2022 End: 06-03-[address] Matthew Spencer Work Phone: [facility] Start: 05-11-2022 End: 05-11-2022 Office outpatient visit 10 minutes Matthew Spencer MD Work Phone: [facility] [place] Comment on above: Type 2 diabetes suzy itus with stage 3a chronic kidney disease, without long-term current use of insulin (HCC) (Primary Dx); Rash of perineum; Fatigue, unspecified type; Coronary artery disease involving [place] heart without angina pectoris, unspecified vessel or lesion type; Gastroesophageal reflux disease, unspecified whether esophagitis present; Acquired hypothyroidism; Mixed hyperlipidemia; 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; Urinary incontinence without sensory awareness; Microalbuminuria due to type 2 diabetes mellitus (HCC); Vitamin D deficiency Start: 04-02-2022 Telephone encounter Matthew sprague MD Work Phone: [facility] [place] Comment on above: Patient Question (la bs) Start: 03-26-2022 End: 03-26-[address] Matthew Spencer Work Phone: [facility]-Laboratory Start: 03-24-2022 End: 03-24-2022 Admission to same day surgery center Dr. Matthew Spencer Work Phone: [facility]-Information Systems Security Developer/Special Procedures Start: 03-20-2022 Non-patient / Non-visit Dr. Karol Spencer Work Phone: [facility] Start: 03-19-2022 Non-patient / Non-visit Dr. Karol Spencer Work Phone: [facility] Start: 03-19-2022 End: 03-19-[address] Matthew Spencer Work Phone: [facility]-Cardiovascul ar Services Start: 03-18-2022 Refill Matthew otero MD Work Phone: [facility] [place] Comment on above: Prescription Refills Start: 03-02-2022 End: 03-02-[address] Matthew Spencer Work Phone: [facility]-Laboratory Start: 03-02-2022 End: 03-02-[address] Matthew Spencer Work Phone: [facility] Start: 03-19-2021 End: 03-19-2021 Subsequent hospital visit by physician X[facility] Work Phone: Radiology Comment on above: Rib pain on right si de [R07.81] Procedures Date Procedure Procedure Detail Performing Clinician Start: 02-05-2025 Radiologic exam ches t 2 views Rosaura Monk PROCESS LABORATORY SPECIALIST.INFORMATION CODER Work Phone: Start: 01-24-2025 Cardiovascular stres s test using pharmacologic stress agent Dr. Matthew Spencer MD Work Phone: Start: 01-07-2025 Plain chest X-ray Dr. Eugene Spencer MD Work Phone: Start: 12-18-2024 Adult depression scr eening assessment Dipika Hernandez PROCESS LABORATORY SPECIALIST.TRIM STENCIL MAKER Work Phone: Start: 11-08-2023 INFLUENZA VACCINE, P RSV FREE, AGE 65+ YR, HIGH DOSE, QUADRIVALENT (FLUZONE HIGH-DOSE) Henrique Garcia PROCESS LABORATORY SPECIALIST.INFORMATION CODER Work Phone: Start: 11-08-2023 PFIZER-BIONTECH COVI D-19 VACCINE (2022- [place]) AGE 12+ YR Henrique Garcia PROCESS LABORATORY SPECIALIST.INFORMATION CODER Work Phone: Start: 09-09-2023 Cardiovascular stres s test using pharmacologic stress agent Dr. Matthew Spencer Work Phone: Start: 07-21-2023 Radiologic exam ches t 2 views Charles Salinas PROCESS LABORATORY SPECIALIST.INFORMATION CODER Work Phone: Start: 11-16-2022 Plain chest X-ray Dr. Eugene Spencer Work Phone: Start: 03-19-2022 Plain chest X-ray Dr. Eugene Spencer Work Phone: Start: 09-24-2021 Adult depression scr eening assessment Matthew Spencer MD Work Phone: Start: 03-19-2021 Radex ribs uni w/pos teroant ch minimum 3 views Anibal Crowley MD Work Phone: Appendectomy DR MELQUIADES Rodrigez MD Back structure, excl uding neck (body structure) DR MELQUIADES BENDER MD Comment on above: x2 Bilateral trigger fi ngers (disorder) DR MELQUIADES BENDER MD Comment on above: x6 Decompression of med keily nerve DR MELQUIADES BENDER MD Comment on above: bilateral Hysterectomy DR MELQUIADES Rodrigez MD Ligation of fallopian tube D R MELQUIADES BENDER MD Lumpectomy of breast DR YOLANDA BENDER MD Comment on above: bilateral Rotator cuff includi ng muscles and tendons (body structure) DR MELQUIADES BENDER MD Comment on above: right, w/ shoulder s cope SARS-CoV-2 & FLU Ant igen (Rapid) Dr. Matthew Spencer Work Phone: Stent, device (physi vitaly object) DR MELQUIADES BENDER MD Plan of Treatment Date Care Activity Detail Author Start: 05-04-2029 Urine microalbumin profile [facility] Start: 07-20-2026 Creatinine measurement Serum Creatinine [facility] Start: 07-16-2026 Glaucoma screening Dilated Retinal Exam [facility] Start: 06-20-2026 Annual PCP Team Chronic Disease Visit Annual PCP Team Chronic Disease Visit [facility] Start: 06-20-2026 Diabetic foot examination Diabetic Foot Exam [facility] Start: 06-20-2026 RSV Vaccine (1 - 1-dose 75+ series) RSV Vaccine (1 - 1-dose 75+ series) [facility] Comment on above: Postponed from 2020 (Declined at t his time) Start: 06-11-2026 Complete blood count Hemoglobin/Hematocrit [facility] Start: 06-11-2026 Creatinine measurement Serum Creatinine [facility] Start: 06-11-2026 Hepatitis B surface antibody level LDL Cholesterol [facility] Start: 05-25-2026 Annual PCP Team Chronic Disease Visit Annual PCP Team Chronic Disease Visit [facility] Start: 02-04-2026 BP Controlled (<130/80) BP Controlled (<130/80) [facility] Start: 01-19-2026 Creatinine measurement Serum Creatinine [facility] Start: 12-25-2025 BP Controlled (<130/80) BP Controlled (<130/80) [facility] Start: 12-21-2025 End: 12-21-2025 Patient encounter procedure 12/21/2025 10:00 AM EST Office Visit [facility] [address] [place], [place] [id number] Matthew Spencer MD [address] [place], [place] [id number] 6 month follow up [facility] Comment on above: 6 month follow up Start: 12-18-2025 Anxiety Screening Anxiety Screening [facility] Start: 12-18-2025 BP Controlled (<130/80) BP Controlled (<130/80) [facility] Start: 12-18-2025 Complete blood count Hemoglobin/Hematocrit [facility] Start: 12-18-2025 Covid-19 Vaccine () Covid-19 Vaccine () [facility] Comment on above: Postponed from 07/30/2024 (Declined at t his time) Start: 12-18-2025 Creatinine measurement Serum Creatinine [facility] Start: 12-18-2025 Depression Screening Depression Screening [facility] Start: 12-18-2025 Hepatitis B screening Urine Albumin:Creatinine Ratio [facility] Start: 12-18-2025 Hepatitis B surface antibody level LDL Cholesterol [facility] Start: 12-12-2025 Hemoglobin A1c measurement HbA1C [facility] Start: 11-20-2025 End: 02-19-2026 25-hydroxyvitamin D3 [Mass/volume] in Serum or Plasma VITAMIN D 25 HYDROXY Lab Routine Vitamin D deficiency Expected: 11/20/2025 (Approximate), Expires: 02/19/2026 [facility] Comment on above: Expected: 11/20/2025 (Approximate), Expi res: 02/19/2026 Start: 11-20-2025 End: 02-19-2026 CBC panel - Blood by Automated count COMPLETE BLOOD COUNT Lab Routine Controlled type 2 diabetes mellitus with microalbuminuria, without long-term current use of insulin (HCC) Expected: 11/20/2025 (Approximate), Expires: 02/19/2026 [facility] Comment on above: Expected: 11/20/2025 (Approximate), Expi res: 02/19/2026 Start: 11-20-2025 End: 02-19-2026 Comprehensive metabolic 2000 panel - Serum or Plasma COMPREHENSIVE METABOLIC PANEL Lab Routine Controlled type 2 diabetes mellitus with microalbuminuria, without long-term current use of insulin (HCC) Expected: 11/20/2025 (Approximate), Expires: 02/19/2026 [facility] Work Phone: Comment on above: Expected: 11/20/2025 (Approximate), Expi res: 02/19/2026 Start: 11-20-2025 End: 02-19-2026 Hemoglobin A1c in Blood HEMOGLOBIN A1C Lab Routine Controlled type 2 diabetes mellitus with microalbuminuria, without long-term current use of insulin (HCC) Expected: 11/20/2025 (Approximate), Expires: 02/19/2026 [facility] Comment on above: Expected: 11/20/2025 (Approximate), Expi res: 02/19/2026 Start: 11-20-2025 End: 02-19-2026 Lipid 1996 panel - Serum or Plasma LIPID PANEL, FASTING Lab Routine Controlled type 2 diabetes mellitus with microalbuminuria, without long-term current use of insulin (HCC) Expected: 11/20/2025 (Approximate), Expires: 02/19/2026 [facility] Comment on above: Expected: 11/20/2025 (Approximate), Expi res: 02/19/2026 Start: 11-20-2025 End: 02-19-2026 Microalbumin/Creatinine [Mass Ratio] in Urine ALBUMIN/CREATININE RATIO, URINE Lab Routine Controlled type 2 diabetes mellitus with microalbuminuria, without long-term current use of insulin (HCC) Expected: 11/20/2025 (Approximate), Expires: 02/19/2026 [facility] Comment on above: Expected: 11/20/2025 (Approximate), Expi res: 02/19/2026 Start: 11-20-2025 End: 02-19-2026 Thyrotropin [Units/volume] in Serum or Plasma THYROID STIMULATING HORMONE Lab Routine Acquired hypothyroidism Expected: 11/20/2025 (Approximate), Expires: 02/19/2026 [facility] Comment on above: Expected: 11/20/2025 (Approximate), Expi res: 02/19/2026 Start: 11-20-2025 End: 02-19-2026 Thyroxine (T4) free [Mass/volume] in Serum or Plasma T4 FREE/FREE THYROXINE Lab Routine Acquired hypothyroidism Expected: 11/20/2025 (Approximate), Expires: 02/19/2026 [facility] Comment on above: Expected: 11/20/2025 (Approximate), Expi res: 02/19/2026 Start: 11-20-2025 End: 02-19-2026 Triiodothyronine (T3) Free [Mass/volume] in Serum or Plasma T3, FREE Lab Routine Acquired hypothyroidism Expected: 11/20/2025 (Approximate), Expires: 02/19/2026 [facility] Comment on above: Expected: 11/20/2025 (Approximate), Expi res: 02/19/2026 Start: 09-11-2025 BP Controlled (<130/80) BP Controlled (<130/80) [facility] in Start: 07-30-2025 Influenza vaccination [facility] Start: 07-21-2025 End: 10-20-2025 Basic metabolic 2000 panel - Serum or Plasma BASIC METABOLIC PANEL Lab Routine Controlled type 2 diabetes mellitus with microalbuminuria, without long-term current use of insulin (HCC) Stage 3b chronic kidney disease (HCC) Expected: 07/21/2025 (Approximate), Expires: 10/20/2025 [facility] Comment on above: Expected: 07/21/2025 (Approximate), Expi res: 10/20/2025 Start: 07-21-2025 End: 10-20-2025 Thyrotropin [Units/volume] in Serum or Plasma THYROID STIMULATING HORMONE Lab Routine Acquired hypothyroidism Expected: 07/21/2025 (Approximate), Expires: 10/20/2025 [facility] Comment on above: Expected: 07/21/2025 (Approximate), Expi res: 10/20/2025 Start: 07-21-2025 End: 10-20-2025 Thyroxine (T4) free [Mass/volume] in Serum or Plasma T4 FREE/FREE THYROXINE Lab Routine Acquired hypothyroidism Expected: 07/21/2025 (Approximate), Expires: 10/20/2025 [facility] Comment on above: Expected: 07/21/2025 (Approximate), Expi res: 10/20/2025 Start: 06-29-2025 Glaucoma screening Dilated Retinal Exam [facility] Comment on above: Postponed from 09/13/2024 (Currently [facility]) Start: 06-20-2025 End: 06-20-2025 Patient encounter procedure 06/20/2025 8:40 AM EDT Office Visit [facility] [address] [place], [place] [address] Matthew Spencer MD [address] [place] [address] Medicare Wellness [facility] [place] Comment on above: Medicare Wellness Start: 06-19-2025 End: 06-19-2025 Patient encounter procedure 06/19/2025 1:30 PM EDT Office [facility] [address] [facility] [place], [place] [id number] Bilateral carotid artery stenosis [I65.23] [facility] Comment on above: Bilateral carotid artery stenosis [I65.2 3] Start: 06-17-2025 Hemoglobin A1c measurement HbA1C [facility] Start: 06-17-2025 End: 12-18-2025 US Carotid arteries - bilateral US CAROTID ARTERIES [facility] Lab Routine Bilateral carotid artery stenosis Expected: 06/17/2025 (Approximate), Expires: 12/18/2025 [facility] Work Phone: Comment on above: Expected: 06/17/2025 (Approximate), Expi res: 12/18/2025 Start: 06-14-2025 Annual PCP Team Chronic Disease Visit Annual PCP Team Chronic Disease Visit [facility] Start: 06-14-2025 BP Controlled (<130/80) BP Controlled (<130/80) [facility] in Start: 06-14-2025 Diabetic foot examination Diabetic Foot Exam [facility] Start: 06-11-2025 End: 06-11-2025 ambulatory 06/11/2025 8:00 AM EDT Results Only [facility] [place] [facility] [address] [place] [address] [facility] [place] [facility] Start: 06-08-2025 End: 09-07-2025 CBC panel - Blood by Automated count COMPLETE BLOOD COUNT Lab Routine Controlled type 2 diabetes mellitus without complication, without long-term current use of insulin (HCC) Stage 3a chronic kidney disease (HCC) Encounter for long-term current use of medication Expected: 06/08/2025, Expires: 09/07/2025 [facility] Work Phone: Comment on above: Expected: 06/08/2025, Expires: Start: 06-08-2025 Complete blood count Hemoglobin/Hematocrit [facility] Start: 06-08-2025 End: 09-07-2025 Comprehensive metabolic 2000 panel - Serum or Plasma COMPREHENSIVE METABOLIC PANEL Lab Routine Stage 3a chronic kidney disease (HCC) Encounter for long-term current use of medication Expected: 06/08/2025, Expires: 09/07/2025 [facility] Comment on above: Expected: 06/08/2025, Expires: Start: 06-08-2025 Creatinine measurement Serum Creatinine [facility] Start: 06-08-2025 End: 09-07-2025 Hemoglobin A1c in Blood HEMOGLOBIN A1C Lab Routine Controlled type 2 diabetes mellitus without complication, without long-term current use of insulin ([facility]) Encounter for long-term current use of medication Expected: 06/08/2025, Expires: 09/07/2025 [facility] Comment on above: Expected: 06/08/2025, Expires: Start: 06-08-2025 End: 09-07-2025 Lipid 1996 panel - Serum or Plasma LIPID PANEL, FASTING Lab Routine Encounter for long-term current use of medication Pure hypercholesterolemia Expected: 06/08/2025, Expires: 09/07/2025 [facility] Comment on above: Expected: 06/08/2025, Expires: Start: 05-28-2025 [facility] on above: [facility] from 07/30/2024 (Declined at t his time) Start: 01-26-2025 Annual PCP Team Chronic Disease Visit Annual PCP Team Chronic Disease Visit [facility] Start: 01-26-2025 BP Controlled (<130/80) BP Controlled (<130/80) [facility] Start: 01-17-2025 Creatinine measurement Serum Creatinine [facility] Start: 01-07-2025 [facility] Start: 01-07-2025 [facility] Start: 12-25-2024 End: 12-25-2024 Patient encounter procedure 12/25/2024 2:00 PM EST Office Visit General Surgery [address] [place], [place] [id number] Maurilio Garcia MD [address] [place] [address] Gastroesophageal reflux disease, unspecified whether esophagitis present [K21.9]; 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 [K22.70] General Surgery Comment on above: Gastroesophageal reflux disease, unspeci fied whether esophagitis present [K21.9]; 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 [K22.70] Start: 12-18-2024 End: 12-18-2024 Patient encounter procedure 12/18/2024 7:00 AM EST Office Visit [facility] [address] [place] [address] Dipika Hernandez 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 [address] [place] [address] 6 month follow up [facility] [place] Comment on above: 6 month follow up Start: 12-16-2024 BP Controlled (<130/80) BP Controlled (<130/80) [facility] Start: 12-13-2024 Complete blood count Hemoglobin/Hematocrit [facility] Start: 12-13-2024 Creatinine measurement Serum Creatinine [facility] Start: 12-13-2024 Hepatitis B screening Urine Albumin:Creatinine Ratio [facility] Start: 12-13-2024 Hepatitis B surface antibody level LDL Cholesterol [facility] Start: 12-09-2024 Hemoglobin A1c measurement HbA1C [facility] Start: 11-29-2024 End: 02-28-2025 25-hydroxyvitamin D3 [Mass/volume] in Serum or Plasma VITAMIN D 25 HYDROXY Lab Routine Vitamin D deficiency Encounter for long-term current use of medication Expected: 11/29/2024 (Approximate), Expires: 02/28/2025 [facility] Comment on above: Expected: 11/29/2024 (Approximate), Expi res: 02/28/2025 Start: 11-29-2024 Advance Directive Discussion Advance Directive Discussion [facility] Start: 11-29-2024 End: 02-28-2025 CBC panel - Blood by Automated count COMPLETE BLOOD COUNT Lab Routine Stage 3b chronic kidney disease (HCC) Encounter for long-term current use of medication Expected: 11/29/2024 (Approximate), Expires: 02/28/2025 [facility] Comment on above: Expected: 11/29/2024 (Approximate), Expi res: 02/28/2025 Start: 11-29-2024 End: 02-28-2025 Comprehensive metabolic 2000 panel - Serum or Plasma COMPREHENSIVE METABOLIC PANEL Lab Routine Controlled type 2 diabetes mellitus without complication, without long-term current use of insulin (HCC) Stage 3b chronic kidney disease (HCC) Encounter for long-term current use of medication Expected: 11/29/2024 (Approximate), Expires: 02/28/2025 [facility] Work Phone: Comment on above: Expected: 11/29/2024 (Approximate), Expi res: 02/28/2025 Start: 11-29-2024 End: 02-28-2025 Hemoglobin A1c in Blood HEMOGLOBIN A1C Lab Routine Controlled type 2 diabetes mellitus without complication, without long-term current use of insulin (HCC) Encounter for long-term current use of medication Expected: 11/29/2024 (Approximate), Expires: 02/28/2025 [facility] Comment on above: Expected: 11/29/2024 (Approximate), Expi res: 02/28/2025 Start: 11-29-2024 End: 02-28-2025 Lipid 1996 panel - Serum or Plasma LIPID PANEL BASIC Lab Routine PURE HYPERCHOLESTEROLEM Encounter for long-term current use of medication Expected: 11/29/2024 (Approximate), Expires: 02/28/2025 [facility] Comment on above: Expected: 11/29/2024 (Approximate), Expi res: 02/28/2025 Start: 11-29-2024 End: 02-28-2025 Magnesium [Mass/volume] in Serum or Plasma MAGNESIUM Lab Routine Encounter for long-term current use of medication Expected: 11/29/2024 (Approximate), Expires: 02/28/2025 [facility] Comment on above: Expected: 11/29/2024 (Approximate), Expi res: 02/28/2025 Start: 11-29-2024 Medicare Advantage Annual Wellness Visit Medicare Advantage Annual Wellness Visit [facility] Start: 11-29-2024 End: 02-28-2025 Microalbumin/Creatinine [Mass Ratio] in Urine ALBUMIN/CREATININE RATIO, URINE Lab Routine Controlled type 2 diabetes mellitus without complication, without long-term current use of insulin ([facility]) Encounter for long-term current use of medication Expected: 11/29/2024 (Approximate), Expires: 02/28/2025 [facility] Comment on above: Expected: 11/29/2024 (Approximate), Expi res: 02/28/2025 Start: 11-24-2024 Annual PCP Team Chronic Disease Visit Annual PCP Team Chronic Disease Visit [facility] Start: 11-18-2024 End: 02-17-2025 Bacteria identified in Wound by Culture [facility] Comment on above: Expected: 11/18/2024, Expires: Start: 11-18-2024 End: 02-17-2025 Herpes simplex virus+Varicella zoster virus DNA [Presence] in Unspecified specimen by SHAUNA with probe detection [facility] Work Phone: Comment on above: Expected: 11/18/2024, Expires: Start: 11-08-2024 Annual PCP Team Chronic Disease Visit Annual PCP Team Chronic Disease Visit [facility] Start: 11-08-2024 BP Controlled (<130/80) BP Controlled (<130/80) [facility] in Start: 09-13-2024 Glaucoma screening Dilated Retinal Exam [facility] Start: 09-11-2024 End: 12-11-2024 Herpes simplex virus+Varicella zoster virus DNA [Presence] in Unspecified specimen by SHAUNA with probe detection [facility] Work Phone: Comment on above: Expected: 09/11/2024, Expires: Start: 07-30-2024 Covid-19 Vaccine ( season) Covid-19 Vaccine ( season) [facility] Start: 07-30-2024 Covid-19 Vaccine () Covid-19 Vaccine () [facility] Start: 07-30-2024 [facility]enza [facility] Start: 07-26-2024 Hepatitis B screening URINE ALBUMIN:CREATININE RATIO [facility] Start: 07-26-2024 SERUM CREATININE SERUM CREATININE [facility] Start: 07-21-2024 BP CONTROLLED (<130/80) BP CONTROLLED (<130/80) [facility] in Start: 06-14-2024 ANNUAL PCP TEAM CHRONIC DISEASE VISIT ANNUAL PCP TEAM CHRONIC DISEASE VISIT [facility] Start: 06-14-2024 BP CONTROLLED (<130/80) BP CONTROLLED (<130/80) [facility] in Start: 06-14-2024 COVID-19 VACCINE (6 - Moderna series) COVID-19 VACCINE (6 - Moderna series) [facility] Comment on above: Postponed from 12/20/2022 (Declined at t his time) Start: 06-14-2024 SHINGRIX VACCINE (2 of 3) SHINGRIX VACCINE (2 of 3) [facility] Comment on above: Postponed from 01/24/2016 (Declined at t his time) Start: 06-14-2024 End: 06-14-2024 Patient encounter procedure 06/14/2024 8:00 AM EDT Office Visit [facility] [address] [place] [id number] Matthew Spencer MD [address] [place] [id number] 1 yr f/u Tj [facility] Comment on above: 1 yr f/u Tj Start: 06-12-2024 Hemoglobin A1c measurement HbA1C [facility] Start: 06-07-2024 HEMOGLOBIN/HEMATOCRIT HEMOGLOBIN/HEMATOCRIT [facility] Start: 06-07-2024 Hepatitis B surface antibody level LDL CHOLESTEROL [facility] Start: 06-07-2024 SERUM CREATININE SERUM CREATININE [facility] Start: 03-09-2024 Covid-19 Vaccine ( season) Covid-19 Vaccine () [facility] Start: 02-13-2024 3 comp foot exam completed DIABETIC FOOT EXAM [facility] Start: 02-13-2024 Diabetic foot examination Diabetic Foot Exam [facility] Start: 12-15-2023 End: 02-14-2024 25-hydroxyvitamin D3 [Mass/volume] in Serum or Plasma VITAMIN D 25 HYDROXY Lab Routine Type 2 diabetes mellitus with stage 3a chronic kidney disease, without long-term current use of insulin ([facility]) Vitamin D deficiency Expected: 12/15/2023 (Approximate), Expires: 02/14/2024 [facility] Work Phone: Comment on above: Expected: 12/15/2023 (Approximate), Expi res: 02/14/2024 Start: 12-15-2023 End: 02-14-2024 ALBUMIN/CREAT RATIO RND UR ALBUMIN/CREAT RATIO RND UR Lab Routine Type 2 diabetes mellitus with stage 3a chronic kidney disease, without long-term current use of insulin (HCC) Microalbuminuria due to type 2 diabetes mellitus (HCC) Expected: 12/15/2023 (Approximate), Expires: 02/14/2024 [facility] Work Phone: Comment on above: Expected: 12/15/2023 (Approximate), Expi res: 02/14/2024 Start: 12-15-2023 End: 02-14-2024 CBC panel - Blood by Automated count CBC Lab Routine Type 2 diabetes mellitus with stage 3a chronic kidney disease, without long-term current use of insulin (HCC) Expected: 12/15/2023 (Approximate), Expires: 02/14/2024 [facility] Work Phone: Comment on above: Expected: 12/15/2023 (Approximate), Expi res: 02/14/2024 Start: 12-15-2023 End: 02-14-2024 Comprehensive metabolic 2000 panel - Serum or Plasma COMP METABOLIC PANEL Lab Routine Type 2 diabetes mellitus with stage 3a chronic kidney disease, without long-term current use of insulin (HCC) Microalbuminuria due to type 2 diabetes mellitus (HCC) Expected: 12/15/2023 (Approximate), Expires: 02/14/2024 [facility] Work Phone: Comment on above: Expected: 12/15/2023 (Approximate), Expi res: 02/14/2024 Start: 12-15-2023 End: 02-14-2024 Hemoglobin A1c in Blood HGB A1C Lab Routine Type 2 diabetes mellitus with stage 3a chronic kidney disease, without long-term current use of insulin (HCC) Expected: 12/15/2023 (Approximate), Expires: 02/14/2024 [facility] Work Phone: Comment on above: Expected: 12/15/2023 (Approximate), Expi res: 02/14/2024 Start: 12-15-2023 End: 02-14-2024 Lipid 1996 panel - Serum or Plasma LIPID PANEL BASIC Lab Routine Type 2 diabetes mellitus with stage 3a chronic kidney disease, without long-term current use of insulin (HCC) Expected: 12/15/2023 (Approximate), Expires: 02/14/2024 [facility] Work Phone: Comment on above: Expected: 12/15/2023 (Approximate), Expi res: 02/14/2024 Start: 12-15-2023 End: 02-14-2024 Thyrotropin [Units/volume] in Serum or Plasma TSH BLD Lab Routine Acquired hypothyroidism Expected: 12/15/2023 (Approximate), Expires: 02/14/2024 [facility] Work Phone: Comment on above: Expected: 12/15/2023 (Approximate), Expi res: 02/14/2024 Start: 12-15-2023 End: 02-14-2024 Thyroxine (T4) free [Mass/volume] in Serum or Plasma T4 FREE/FREE THYROX Lab Routine Acquired hypothyroidism Expected: 12/15/2023 (Approximate), Expires: 02/14/2024 [facility] Work Phone: Comment on above: Expected: 12/15/2023 (Approximate), Expi res: 02/14/2024 Start: 12-08-2023 Hemoglobin A1c/Hemoglobin.total in Blood HBA1C [facility] Start: 11-29-2023 Advance Directive Discussion Advance Directive Discussion [facility] Start: 11-29-2023 Behavioral Health Screening Behavioral Health Screening [facility] Start: 11-29-2023 Depression Assessment Depression Assessment [facility] Start: 11-10-2023 3 comp foot exam completed DIABETIC FOOT EXAM [facility] Start: 11-02-2023 HEMOGLOBIN/HEMATOCRIT HEMOGLOBIN/HEMATOCRIT [facility] Start: 11-02-2023 Hepatitis B screening URINE ALBUMIN:CREATININE RATIO [facility] Start: 11-02-2023 SERUM CREATININE SERUM CREATININE [facility] Start: 07-30-2023 Covid-19 Vaccine () Covid-19 Vaccine () [facility] Start: 07-30-2023 Influenza vaccination [facility] Start: 07-26-2023 End: 09-25-2023 25-hydroxyvitamin D3 [Mass/volume] in Serum or Plasma VITAMIN D 25 HYDROXY Lab Routine Vitamin D deficiency Expected: 07/26/2023 (Approximate), Expires: 09/25/2023 [facility] Work Phone: Comment on above: Expected: 07/26/2023 (Approximate), Expi res: 09/25/2023 Start: 07-26-2023 End: 09-25-2023 ALBUMIN/CREAT RATIO RND UR ALBUMIN/CREAT RATIO RND UR Lab Routine Microalbuminuria due to type 2 diabetes mellitus (HCC) Expected: 07/26/2023 (Approximate), Expires: 09/25/2023 [facility] Work Phone: Comment on above: Expected: 07/26/2023 (Approximate), Expi res: 09/25/2023 Start: 07-26-2023 End: 09-25-2023 Basic metabolic 2000 panel - Serum or Plasma BASIC METABOLIC PNL Lab Routine Type 2 diabetes mellitus with stage 3a chronic kidney disease, without long-term current use of insulin (HCC) Microalbuminuria due to type 2 diabetes mellitus (HCC) Vitamin D deficiency Expected: 07/26/2023 (Approximate), Expires: 09/25/2023 [facility] Work Phone: Comment on above: Expected: 07/26/2023 (Approximate), Expi res: 09/25/2023 Start: 07-26-2023 End: 09-25-2023 Thyrotropin [Units/volume] in Serum or Plasma TSH BLD Lab Routine Acquired hypothyroidism Expected: 07/26/2023 (Approximate), Expires: 09/25/2023 [facility] Work Phone: Comment on above: Expected: 07/26/2023 (Approximate), Expi res: 09/25/2023 Start: 07-26-2023 End: 09-25-2023 Thyroxine (T4) free [Mass/volume] in Serum or Plasma T4 FREE/FREE THYROX Lab Routine Acquired hypothyroidism Expected: 07/26/2023 (Approximate), Expires: 09/25/2023 [facility] Work Phone: Comment on above: Expected: 07/26/2023 (Approximate), Expi res: 09/25/2023 Start: 07-06-2023 Hepatitis C antibody, confirmatory test DILATED RETINAL EXAM [facility] Start: 05-11-2023 ANNUAL PCP TEAM CHRONIC DISEASE VISIT ANNUAL PCP TEAM CHRONIC DISEASE VISIT [facility] Start: 05-04-2023 Hepatitis B screening URINE ALBUMIN:CREATININE RATIO [facility] Start: 05-04-2023 Hepatitis B surface antibody level LDL CHOLESTEROL [facility] Start: 05-03-2023 Hemoglobin A1c/Hemoglobin.total in Blood HBA1C [facility] Start: 04-29-2023 End: 10-25-2023 CBC W Auto Differential panel - Blood CBC + DIFF Lab Routine Type 2 diabetes mellitus with stage 3a chronic kidney disease, without long-term current use of insulin (HCC) Expected: 04/29/2023 (Approximate), Expires: 10/25/2023 [facility] Work Phone: Comment on above: Expected: 04/29/2023 (Approximate), Expi res: 10/25/2023 Start: 04-29-2023 End: 10-25-2023 Comprehensive metabolic 2000 panel - Serum or Plasma COMP METABOLIC PANEL Lab Routine Type 2 diabetes mellitus with stage 3a chronic kidney disease, without long-term current use of insulin (HCC) Expected: 04/29/2023 (Approximate), Expires: 10/25/2023 [facility] Work Phone: Comment on above: Expected: 04/29/2023 (Approximate), Expi res: 10/25/2023 Start: 04-29-2023 End: 10-25-2023 Hemoglobin A1c in Blood HGB A1C Lab Routine Type 2 diabetes mellitus with stage 3a chronic kidney disease, without long-term current use of insulin (HCC) Expected: 04/29/2023 (Approximate), Expires: 10/25/2023 [facility] Work Phone: Comment on above: Expected: 04/29/2023 (Approximate), Expi res: 10/25/2023 Start: 04-29-2023 End: 10-25-2023 Lipid 1996 panel - Serum or Plasma LIPID PANEL BASIC Lab Routine Type 2 diabetes mellitus with stage 3a chronic kidney disease, without long-term current use of insulin (HCC) Expected: 04/29/2023 (Approximate), Expires: 10/25/2023 [facility] Work Phone: Comment on above: Expected: 04/29/2023 (Approximate), Expi res: 10/25/2023 Start: 04-29-2023 End: 10-25-2023 Thyrotropin [Units/volume] in Serum or Plasma TSH BLD Lab Routine Acquired hypothyroidism Expected: 04/29/2023 (Approximate), Expires: 10/25/2023 [facility] Work Phone: Comment on above: Expected: 04/29/2023 (Approximate), Expi res: 10/25/2023 Start: 12-11-2022 End: 02-10-2023 CBC W Auto Differential panel - Blood CBC + DIFF Lab Routine Decreased hemoglobin Expected: 12/11/2022 (Approximate), Expires: 02/10/2023 [facility] Work Phone: Comment on above: Expected: 12/11/2022 (Approximate), Expi res: 02/10/2023 Start: 11-29-2022 ADVANCE DIRECTIVE DISCUSSION ADVANCE DIRECTIVE DISCUSSION [facility] Start: 11-29-2022 DEPRESSION ASSESSMENT DEPRESSION ASSESSMENT [facility] Start: 11-16-2022 [facility] Work Phone: Start: 11-10-2022 End: 01-10-2023 25-hydroxyvitamin D3 [Mass/volume] in Serum or Plasma VITAMIN D 25 HYDROXY Lab Routine Vitamin D deficiency Expected: 11/10/2022 (Approximate), Expires: 01/10/2023 [facility] Work Phone: Comment on above: Expected: 11/10/2022 (Approximate), Expi res: 01/10/2023 Start: 11-10-2022 End: 01-10-2023 ALBUMIN/CREAT RATIO RND UR ALBUMIN/CREAT RATIO RND UR Lab Routine Type 2 diabetes mellitus with stage 3a chronic kidney disease, without long-term current use of insulin (HCC) Microalbuminuria due to type 2 diabetes mellitus (HCC) Expected: 11/10/2022 (Approximate), Expires: 01/10/2023 [facility] Work Phone: Comment on above: Expected: 11/10/2022 (Approximate), Expi res: 01/10/2023 Start: 11-10-2022 End: 01-10-2023 CBC panel - Blood by Automated count CBC Lab Routine Type 2 diabetes mellitus with stage 3a chronic kidney disease, without long-term current use of insulin (HCC) Expected: 11/10/2022 (Approximate), Expires: 01/10/2023 [facility] Work Phone: Comment on above: Expected: 11/10/2022 (Approximate), Expi res: 01/10/2023 Start: 11-10-2022 End: 01-10-2023 Comprehensive metabolic 2000 panel - Serum or Plasma COMP METABOLIC PANEL Lab Routine Type 2 diabetes mellitus with stage 3a chronic kidney disease, without long-term current use of insulin (HCC) Expected: 11/10/2022 (Approximate), Expires: 01/10/2023 [facility] Work Phone: Comment on above: Expected: 11/10/2022 (Approximate), Expi res: 01/10/2023 Start: 11-10-2022 End: 01-10-2023 Hemoglobin A1c in Blood HGB A1C Lab Routine Type 2 diabetes mellitus with stage 3a chronic kidney disease, without long-term current use of insulin (HCC) Expected: 11/10/2022 (Approximate), Expires: 01/10/2023 [facility] Work Phone: Comment on above: Expected: 11/10/2022 (Approximate), Expi res: 01/10/2023 Start: 11-10-2022 End: 01-10-2023 LIPID PANEL, NONFASTING LIPID PANEL, NONFASTING Lab Routine Coronary artery disease involving [place] heart without angina pectoris, unspecified vessel or lesion type Expected: 11/10/2022, Expires: 01/10/2023 [facility] Work Phone: Comment on above: Expected: 11/10/2022, Expires: Start: 11-10-2022 End: 01-10-2023 Thyrotropin [Units/volume] in Serum or Plasma TSH BLD Lab Routine Mixed hyperlipidemia Expected: 11/10/2022 (Approximate), Expires: 01/10/2023 [facility] Work Phone: Comment on above: Expected: 11/10/2022 (Approximate), Expi res: 01/10/2023 Start: 11-10-2022 End: 01-10-2023 Thyroxine (T4) free [Mass/volume] in Serum or Plasma T4 FREE/FREE THYROX Lab Routine Mixed hyperlipidemia Expected: 11/10/2022 (Approximate), Expires: 01/10/2023 [facility] Work Phone: Comment on above: Expected: 11/10/2022 (Approximate), Expi res: 01/10/2023 Start: 11-03-2022 Hemoglobin A1c/Hemoglobin.total in Blood HBA1C [facility] Start: 10-02-2022 3 comp foot exam completed DIABETIC FOOT EXAM [facility] Start: 10-02-2022 ANNUAL PCP TEAM CHRONIC DISEASE VISIT ANNUAL PCP TEAM CHRONIC DISEASE VISIT [facility] Start: 10-02-2022 SHINGRIX VACCINE (2 of 3) SHINGRIX VACCINE (2 of 3) [facility] Comment on above: Postponed from 01/24/2016 (Declined at t his time) Start: 09-24-2022 Adult depression screening assessment DEPRESSION SCREENING [facility] Start: 09-23-2022 HEMOGLOBIN/HEMATOCRIT HEMOGLOBIN/HEMATOCRIT [facility] Start: 09-23-2022 Hepatitis B screening URINE ALBUMIN:CREATININE RATIO [facility] Start: 09-23-2022 Hepatitis B surface antibody level LDL CHOLESTEROL [facility] Start: 09-23-2022 SERUM CREATININE SERUM CREATININE [facility] Start: 07-30-2022 Influenza vaccination INFLUENZA (#1) [facility] Start: 07-02-2022 COVID-19 VACCINE (5 - Booster for Moderna series) COVID-19 VACCINE (5 - Booster for Moderna series) [facility] Start: 06-26-2022 Hepatitis C antibody, confirmatory test DILATED RETINAL EXAM [facility] Start: 03-24-2022 Hemoglobin A1c/Hemoglobin.total in Blood HBA1C [facility] Start: 11-29-2021 ADVANCE DIRECTIVE DISCUSSION ADVANCE DIRECTIVE DISCUSSION [facility] Start: 11-29-2021 DEPRESSION ASSESSMENT DEPRESSION ASSESSMENT [facility] Start: 07-28-2021 COVID-19 VACCINE (3 - Booster for Moderna series) COVID-19 VACCINE (3 - Booster for Moderna series) [facility] Start: 2020 RSV Vaccine (1 - 1-dose 75+ series) RSV Vaccine (1 - 1-dose 75+ series) [facility] Start: 01-24-2016 SHINGRIX VACCINE (2 of 3) SHINGRIX VACCINE (2 of 3) [facility] Start: 2005 Hepatitis B Vaccine (1 of 3 - Risk 3-dose series) Hepatitis B Vaccine (1 of 3 - Risk 3-dose series) [facility] Start: 2005 RSV Vaccine (1 - 1-dose 60+ series) RSV Vaccine (1 - 1-dose 60+ series) [facility] Start: 1963 Anxiety Screening Anxiety Screening [facility] Start: 1963 BP Controlled (<130/80) BP Controlled (<130/80) [facility] Start: 1963 Depression Screening Depression Screening [facility] BACTERIAL VAGINOSIS AMPLIFICATION BACTERIAL VAGINOSIS AMPLIFICATION Lab Routine Vaginal irritation 10/26/2022 10:55 AM EST [facility] Work Phone: Basic metabolic 2008 panel with ionized calcium - Serum or Plasma [facility] THONG / TRICHOMONA S AMPLIFICATION THONG / TRICHOMONAS AMPLIFICATION Microbiology Routine Vaginal irritation 10/26/2022 10:55 AM EST [facility] Work Phone: Catheterization of l eft heart [facility] Work Phone: End: 12-25-2025 EGD DIAGNOSTIC EGD DIAGNOSTIC Endoscopy Routine Gastroesophageal reflux disease, unspecified whether esophagitis present 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 1 Occurrences starting 12/25/2024 until 12/25/2025 [facility] Work Phone: Comment on above: 1 Occurrences starting 12/25/2024 until 12/25/2025 Patient Education [facility] Work Phone: Patient referral [facility] Work Phone: End: 03-06-2026 XR Chest PA and Lateral XR CHEST 2V FRONTAL/LAT Radiology STAT Acute cough 1 Occurrences starting 02/04/2025 until 03/06/2026 [facility] Work Phone: Comment on above: 1 Occurrences starting 02/04/2025 until 03/06/2026 End: 06-24-2026 XR Ribs - left Views and Chest PA XR RIBS/CHEST 3V AP RIB/OBLS/CXR LEFT Radiology Routine Fall, initial encounter Rib pain on left side Left flank pain 1 Occurrences starting 05/25/2025 until 06/24/2026 [facility] Work Phone: Comment on above: 1 Occurrences starting 05/25/2025 until 06/24/2026 XR Ribs - left Views and Chest PA XR RIBS/CHEST 3V AP RIB/OBLS/CXR LEFT Radiology Routine Fall, initial encounter Rib pain on left side Left flank pain 05/25/2025 10:20 AM EDT [facility] Immunizations Immunization Date Immunization Notes Care Provider Shannon zee 11-08-2023 COVID-19 vaccine, ag e 12+ yr, season (PFIZER-BIONTEpoque) Henrique Garcia PROCESS LABORATORY SPECIALIST.[facility] Work Phone: [facility] Work Phone: 11-08-2023 influenza (HD-IIV4) vaccine, age 65+ yr, high dose, quadrivalent, PF (FLUZONE HIGH-DOSE) Henrique Garcia PROCESS LABORATORY SPECIALIST.[facility] Work Phone: [facility] Work Phone: 11-08-2023 influenza virus vacc ine, unspecified formulation DR MELQUIADES BENDER MD [facility] 11-08-2023 SARS-CoV-2 (COVID-19 ) [id number] MELQUIADES BENDER MD [facility] Comment on above: Result Comment: 2023: [id number] 08-20-2022 influenza (HD-IIV4) vaccine, age 65+ yr, high dose, quadrivalent, PF (FLUZONE HIGH-DOSE) Matthew Spencer MD Work Phone: [facility] Work Phone: 08-20-2022 influenza virus vacc ine, unspecified formulation Matthew Spencer MD Work Phone: [facility] 08-30-2021 influenza, high-dose , quadrivalent vaccine (FLUZONE HIGH DOSE QUADRIVALENT) Matthew Spencer MD Work Phone: [facility] Work Phone: 02-25-2021 COVID-19 vaccine, fu ll dose (MODERNA); Translations: [Moderna COVID-19 Vaccine] Matthew Spencer MD Work Phone: [facility] 01-28-2021 COVID-19 vaccine, fu ll dose (MODERNA); Translations: [Moderna COVID-19 Vaccine] Matthew Spencer MD Work Phone: [facility] Comment on above: Result Comment: give n by [employer] student 08-15-2020 influenza, high-dose , quadrivalent vaccine (FLUZONE HIGH DOSE QUADRIVALENT) Matthew Spencer MD Work Phone: [facility] Work Phone: 08-26-2019 influenza, high dose seasonal, preservative-free Matthew Spencer MD Work Phone: [facility] 05-04-2019 tetanus toxoid, redu zion diphtheria toxoid, and acellular pertussis vaccine, adsorbed Matthew Spencer MD Work Phone: [facility] 08-27-2018 influenza, high dose seasonal, preservative-free Matthew Spencer MD Work Phone: [facility] Work Phone: 08-03-2017 influenza, high dose seasonal, preservative-free Matthew Spencer MD Work Phone: [facility] 08-21-2016 influenza, high dose seasonal, preservative-free Matthew Spencer MD Work Phone: [facility] 12-06-2015 zoster vaccine, live DR YOLANDA BENDER MD [facility] 11-29-2015 zoster vaccine, live Matthew brown MD Work Phone: [facility] Work Phone: 10-28-2015 pneumococcal conjuga te vaccine, 13 valent Matthew Spencer MD Work Phone: [facility] 09-18-2015 influenza, high dose seasonal, preservative-free Matthew Spencer MD Work Phone: [facility] 09-12-2014 influenza, seasonal, injectable Matthew Spencer MD Work Phone: [facility] Work Phone: 08-22-2014 influenza, injectabl e, quadrivalent, preservative free Dr. Matthew Spencer Work Phone: [facility] 08-22-2014 influenza, seasonal, injectable Dr. Matthew Spencer Work Phone: [facility] Work Phone: 09-23-2013 influenza virus vacc ine, unspecified formulation Matthew Spencer MD Work Phone: [facility] Work Phone: 08-20-2012 influenza virus vacc ine, unspecified formulation Matthew Spencer MD Work Phone: [facility] Work Phone: 08-29-2011 influenza virus vacc ine, unspecified formulation Matthew Spencer MD Work Phone: [facility] Work Phone: 10-31-2010 pneumococcal polysaccharide vaccine, 23 valent Matthew Spencer MD Work Phone: [facility] 10-31-2010 tetanus and diphther ia toxoids, adsorbed, preservative free, for adult use (2 Lf of tetanus toxoid and 2 Lf of diphtheria toxoid) Matthew Spencer MD Work Phone: [facility] 09-28-2007 influenza virus vacc ine, unspecified formulation Matthew Spencer MD Work Phone: [facility] Work Phone: 10-14-2006 influenza virus vacc ine, unspecified formulation Matthew Spencer MD Work Phone: [facility] Payers Date Payer Category Payer Medicare (Managed Care) ONESIMO AREVALO [id number] 2024 Medicare [id number] 2024 Self-pay [id number] 2013 Private Health Insurance [facility] AARP SUPPLEMENT [id number] 2013-Present [phone] [address] [place] [address] Indemnity [id number] 2013 Private Health Insurance [facility] AARP SUPPLEMENT [id number] 2013-Present [phone] [address] [place] [address] Indemnity [id number] 2013 Unknown [id number] 2010 Medicare MEDICARE MEDICAR E A AND B [id number] 2010-Present [phone] [address] [address] [place] [address] Medicare [id number] 2010 Medicare [id number] 2010 Medicare [id number] 1945 Unknown [id number] 1945 Unknown [id number] 1945 Unknown [id number] Unknown [id number] Unknown [id number] Unknown [id number] Unknown [id number] Unknown [id number] Unknown [id number] Unknown [id number] Unknown [id number] Unknown [id number] Unknown [id number] Unknown [id number] Social History Date Type Detail Facility Start: 03-02-2022 End: 08-20-2023 Tobacco smoking status SCIS Unknown if ever smoked [facility] Start: 04-11-2015 None [facility] Start: 04-11-2015 Alone [facility] Start: 04-11-2015 Non-smoker [facility] Start: 1945 Sex Assigned At Female C [facility] Start: 10-10-2013 End: 01-07-2025 Tobacco smoking status SCIS Never smoked tobacco [facility] Start: 10-02-2021 End: 05-25-2025 Alcohol intake Current non-drinker of alcohol (finding) [facility] Start: 10-17-2020 End: 11-09-2022 History SDOH Alcohol Frequency 1 [facility] Start: 10-17-2020 History SDOH Alcohol Std Drinks 98 [facility] Start: 03-19-2020 End: 08-13-2020 History SDOH Social Connections Phone 5 [facility] Start: 03-19-2020 End: 11-09-2022 History SDOH Social Connections Religion 3 [facility] Start: 03-19-2020 End: 08-13-2020 History SDOH Social Connections Living 4 [facility] Start: 08-13-2020 History SDOH Physica l Activity MPS 15 [facility] Start: 08-13-2020 End: 11-09-2022 History SDOH Stress 2 [facility] Start: 03-19-2020 Education 12 [facility] Start: 02-02-2021 End: 10-26-2022 Exposure to SARS-CoV-2 (event) Not sure [facility] Work Phone: Start: 10-10-2013 End: 12-16-2023 Tobacco use and exposure Smokeless tobacco non-user [facility] Start: 11-09-2022 History SDOH Alcohol Std Drinks 0 [facility] Start: 11-09-2022 End: 06-14-2023 History of Social function [facility] Start: 11-09-2022 End: 06-14-2023 Social connection and isolation panel [facility] Do you belong to any clubs or organizations such as advent groups, unions, fraternal or athletic groups, or school groups? Yes [facility] Are you now , , , , never or living with a partner? [facility] How often to you hav e a drink containing alcohol? Never [facility] Start: 10-30-[address] inks containing alcohol do you have on a typical day? Patient does not drink [facility] How hard is it for y ou to pay for the very basics like food, housing, medical care, and heating Not very hard [facility] Do you feel stress - tense, restless, nervous, or anxious, or unable to sleep at night because your mind is troubled all the time - these days [OSQ] To some extent [facility] (I/We) worried wheth er (my/our) food would run out before (I/we) got money to buy more. Never true [facility] In the past 12 month s, was there a time when you were not able to pay the mortgage or rent on time? No [facility] Start: 03-04-2021 Gender identity Identifies as female gender (finding) [facility] Do you feel stress - tense, restless, nervous, or anxious, or unable to sleep at night because your mind is troubled all the time - these days [OSQ] Only a little [facility] Start: 02-07-2025 Sex Female (finding) [facility] NEGATED: Highlighted rowStart: HARLEEN History of tobacco use Passive smoker [facility] Medical Equipment Procedure Code Equipment Code Equipment Origin al Text Equipment Identifier Dates Test blood sugar (s) 1 time daily and as needed. Dx: Type 2 DM - Uncontrolled E11.9 Insulin: No [id number], [id number], [id number], [id number], [id number] Start: 01-24-2021 End: 04-30-2025 Comment on above: Test blood sugar(s) 1 time daily and as needed. Dx: Type 2 DM - Uncontrolled E11.9 Insulin: No Functional Status Date Assessment Result Facility 06-14-2025 Total score [AUDIT-C] 0 06/14/20 25 1:35 AM EDT User, Mychart [facility] 06-14-2025 How often to you hav e a drink containing alcohol? Never 06/14/2025 1:35 AM EDT User, Mychart Never [facility] 06-14-2025 Functional status Patient does n ot drink 06/14/2025 1:35 AM EDT User, Mychart Patient does not drink [facility] 06-14-2025 How often do you hav e 6 or more drinks on 1 occasion? Never 06/14/2025 1:35 AM EDT User, Mychart Never [facility] 01-14-2024 Functional Status Room check performed [facility] 01-14-2024 Functional Status [facility] 01-14-2024 Functional Status [facility] 01-14-2024 Functional Status [facility] 01-13-2024 Functional Status 50 [facility] 01-13-2024 Functional Status [facility] 01-13-2024 Functional Status Demonstrates C orrect Call Light Use Yes [facility] 01-13-2024 Functional Status [facility] 01-12-2024 Functional Status bilateral thigh high [facility] 01-12-2024 Functional Status Yolanda Campbell [facility] 01-12-2024 Functional Status None Yolanda Campbell [facility] 01-11-2024 Functional Status Multilevel home [facility] 01-11-2024 Functional Status Supervised Yolanda Campbell [facility] 01-11-2024 Functional Status bilateral knee high applied/on [facility] 01-11-2024 Functional Status Yolanda [facility] 01-11-2024 Functional Status NPO Status Maintained A [facility] 01-11-2024 [facility] Functional Status Sensory Deficits None [facility] 06-11-2015 Are you deaf, or do you have serious difficulty hearing No 06/11/2015 10:49 AM Daphnie Key)(Hist), RN No [facility] 06-11-2015 Are you blind, or do you have serious difficulty seeing, even when wearing glasses No 06/11/2015 10:49 AM Daphnie Key)(Hist), RN No [facility] 06-11-2015 Do you have serious difficulty walking or climbing stairs No 06/11/2015 10:49 AM Daphnie Key)(Hist), RN No [facility] 06-11-2015 Do you have difficul ty dressing or bathing No 06/11/2015 10:49 AM Daphnie Key)(Hist), RN No [facility] 06-11-2015 Because of a physica l, mental, or emotional condition, do you have difficulty doing errands alone such as visiting a physician's office or shopping No 06/11/2015 10:49 AM Daphnie Key)(Hist), RN No [facility] Mental Status Date Assessment Result Facility 01-07-2025 Cognitive function Voice/Name [facility] Work Phone: 01-14-2024 Mental Status Oriented x 4 [facility] 01-13-2024 Mental Status [facility] 01-13-2024 Mental Status [facility] 01-13-2024 Mental Status [facility] 11-16-2022 Cognitive function Level Of Cons ciousness Awake;Alert;Appropriate;Fol lows Commands [facility] Work Phone: 06-11-2015 Because of a physica l, mental, or emotional condition, do you have serious difficulty concentrating, remembering, or making decisions No 06/11/2015 10:49 AM EDWINT Daphnie Garay (Rn)(Hist), RN No [facility] Clinical Notes 01-27-2011 to 09-20-2025 Note Date & Type Note Facility 09-20-2025 Note HNO ID: [id number] Author: MARI POWERS CPhT Service: ? Author Type: Skinning Machine Feeder Type: Progress Notes Filed: 09/21/2025 10:47 Note Text: Patient is identified through a medication adherence outreach initiative based on pharmacy claims data from: [employer] Medication Adherence Category: Statins First Review Attribution Status: Correct attribution Medication(s) Rosuvastatin 40 mg Last Filled 05/04 for 90DS, Next fill due 08/26 Medication Status per portal/Epic Reconcile Dispense: Not filled Medication Status per Profile Review: No refills Patient/provider appropriate for outreach? Yes Patient identified by name and Outreach to patient: Left Voicemail/message for return call and Sent [employer] message What was primary intervention? Asked permission to send refill request Addendum 09/21/25: pt responded to [facility] message, has 3 bottles of overstock Mari Powers CPhT Value Based Care Pharmacy Team [facility] 09-20-2025 Note Patient Outreach ( POHE) DOLORES VILLA ([id number]) 1945 F Date Time Provider Department 09/20/25 MATTHEW SPENCER During your visit today, we recorded the following information about you: Mari Powers CPhT 09/21/2025 10:47 AM Addendum Patient is identified through a medication adherence outreach initiative based on pharmacy claims data from: [employer] Medication Adherence Category: Statins First Review Attribution Status: Correct attribution Medication(s) Rosuvastatin 40 mg Last Filled 05/04 for 90DS, Next fill due 08/26 Medication Status per portal/Epic Reconcile Dispense: Not filled Medication Status per Profile Review: No refills Patient/provider appropriate for outreach? Yes Patient identified by name and Outreach to patient: Left Voicemail/message for return call and Sent [employer] message What was primary intervention? Asked permission to send refill request Addendum 09/21/25: pt responded to [employer] message, has 3 bottles of overstock Mari Powers CPhT [facility] Team Allergies As of Date: 09/20/2025 Noted Allergy Reaction ATIVAN (LORAZEPAM) 12/07/2005 14 - Other: See Comments Comments: family members had MS change BENZONATATE 04/26/2015 8 - GI Upset HCTZ (HYDROCHLOROTHIAZIDE) 12/10/2008 5 - Intolerance Comments: headache SEASONAL ALLERGIES 12/05/2012 14 - Other: See Comments Comments: Receiving allergy shots. SULFA (SULFONAMIDE ANTIBIOTICS) 12/07/2005 16 - Unknown Date Reviewed: 05/25/2025 Reviewed by: Henrique Garcia APRN.INFORMATION CODER - Fully Assessed Reason for Visit: Allied Health Visit [5] Cmt: Medication Adherence Outreach Prescriptions as of 10/01/2025 - metFORMIN ER (GLUCOPHAGE XR) 500 mg 24 hr tablet Take 1 tablet by mouth two times a day with meals. As directed - lisinopril (ZESTRIL) 10 mg tablet Take 1 tablet by mouth once daily. - metoprolol tartrate, short acting, (LOPRESSOR) 50 mg tablet Take 1 tablet by mouth two times a day. - cholecalciferol (VITAMIN D3) 50 mcg (2,000 unit) tablet Take 1 tablet by mouth once daily. - dapagliflozin propanediol (FARXIGA) 5 mg tablet Take 1 tablet by mouth daily with breakfast. - blood sugar diagnostic (BLOOD GLUCOSE TEST) test strip Test blood sugar(s) 1 time daily and as needed. Dx: Type 2 DM - Uncontrolled E11.9 Insulin: No - omeprazole (PRILOSEC) 20 mg capsule Take 1 capsule by mouth daily before breakfast. 1/2 hr before meal. - glipiZIDE (GLUCOTROL) 5 mg tablet Take 1 tablet by mouth two times a day before meals. - Lancets Test blood sugar(s) 1 time daily and as needed. Dx: Type 2 DM - Uncontrolled E11.9 Insulin: No - levothyroxine (SYNTHROID) 75 mcg tablet Take 1 tablet by mouth once daily. - FOLIC ACID ORAL Take by mouth. - ferrous sulfate (IRON) 325 mg (65 mg iron) tablet Take 325 mg by mouth. - nitroglycerin sublingual (NITROQUICK) 0.4 mg SL tablet Dissolve 1 tablet under the tongue every 5 minutes as needed. As directed for chest pain. IF NO RELIEF CALL 911 - isosorbide mononitrate ER (IMDUR) 60 mg 24 hr tablet Take 1 tablet by mouth once daily. - ELIQUIS 5 mg tab(s) Take 1 tablet by mouth two times a day. - rosuvastatin (CRESTOR) 40 mg tablet Take 1 tablet by mouth daily at bedtime. - Blood Pressure Monitor (BLOOD PRESSURE KIT) 1 Each once daily as needed. - ACETAMINOPHEN/DIPHENHYDRAMINE (TYLENOL PM EXTRA STRENGTH ORAL) Take by mouth every 8 hours as needed. - THERAPEUTIC MULTIVITAMIN TAB Take by mouth once daily. Problem List As Of Date 09/20/2025 Noted Resolved Hypothyroidism [E03.9] Mixed hyperlipidemia [E78.2] 06/15/2006 CERVICALGIA [M54.2] 06/30/2007 08/08/2007 OTHER HAMMER TOE [M20.40] 07/23/2008 JOINT PAIN-SHLDER [M25.519] 09/17/2008 Migraine [G43.909] 08/23/2009 11/19/2020 GERD (Gastroesophageal Reflux Disease) [K21.9] 11/13/2009 Occlusion and stenosis of carotid artery withou*01/03/2010 CAD (coronary artery disease) [I25.10] 07/30/2010 Diverticulitis of Colon [K57.32] 08/22/2010 SUMMARY [V999.95] 01/29/2011 09/26/2021 Postsurgical percutaneous transluminal coronary*02/04/2011 Esophagitis [K20.90] 04/03/2011 09/26/2021 Dupuytren's contracture [M72.0] 11/01/2012 Trigger ring finger of left hand [M65.342] 12/19/2012 Sacroiliitis, not elsewhere classified (HCC) [M*02/07/2013 05/17/2020 Thoracic and lumbosacral neuritis [M54.14, M54.*02/07/2013 History of lumbar laminectomy [Z98.890] 10/21/2015 Bulge of lumbar disc without myelopathy [M51.36*10/21/2015 Type 2 diabetes mellitus with stage 3a chronic *10/14/2016 Stage 3a chronic kidney disease (HCC) [N18.31] 10/14/2016 Trigger thumb of left hand [M65.312] 08/12/2017 11/26/2017 Trigger finger, right ring finger [M65.341] 08/08/2018 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 [K22.70] 09/20/2018 Chronic pain of left knee--since contusion [M25*10/06/2018 Thoracic aortic aneurysm without ruptur (more content not included)... [facility] 08-17-2025 Note HNO ID: [id number] Author: MISHA ADAMSON RN Service: ? Author Type: Registered Nurse Type: Progress Notes Filed: 08/17/2025 14:15 Note Text: CDM ENROLLMENT Pt would like to think about program over the weekend. States she follows w/ PCP and cardiology to manage chronic conditions. [facility] 08-17-2025 Note Patient Outreach (AM BC) DOLORES VILLA ([id number]) 1945 F Date Time Provider Department 08/17/25 MISHA ADAMSON [facility] During your visit today, we recorded the following information about you: Misha Adamson, RN 08/17/2025 2:15 PM Signed CDM ENROLLMENT Pt would like to think about program over the weekend. States she follows w/ PCP and cardiology to manage chronic conditions. Allergies As of Date: 08/17/2025 Noted Allergy Reaction ATIVAN (LORAZEPAM) 12/07/2005 14 - Other: See Comments Comments: family members had MS change BENZONATATE 04/26/2015 8 - GI Upset HCTZ (HYDROCHLOROTHIAZIDE) 12/10/2008 5 - Intolerance Comments: headache SEASONAL ALLERGIES 12/05/2012 14 - Other: See Comments Comments: Receiving allergy shots. SULFA (SULFONAMIDE ANTIBIOTICS) 12/07/2005 16 - Unknown Date Reviewed: 05/25/2025 Reviewed by: Henrique Garcia APRN.INFORMATION CODER - Fully Assessed Prescriptions as of 08/17/2025 - lisinopril (ZESTRIL) 10 mg tablet Take 1 tablet by mouth once daily. - metoprolol tartrate, short acting, (LOPRESSOR) 50 mg tablet Take 1 tablet by mouth two times a day. - cholecalciferol (VITAMIN D3) 50 mcg (2,000 unit) tablet Take 1 tablet by mouth once daily. - dapagliflozin propanediol (FARXIGA) 5 mg tablet Take 1 tablet by mouth daily with breakfast. - blood sugar diagnostic (BLOOD GLUCOSE TEST) test strip Test blood sugar(s) 1 time daily and as needed. Dx: Type 2 DM - Uncontrolled E11.9 Insulin: No - omeprazole (PRILOSEC) 20 mg capsule Take 1 capsule by mouth daily before breakfast. 1/2 hr before meal. - glipiZIDE (GLUCOTROL) 5 mg tablet Take 1 tablet by mouth two times a day before meals. - Lancets Test blood sugar(s) 1 time daily and as needed. Dx: Type 2 DM - Uncontrolled E11.9 Insulin: No - levothyroxine (SYNTHROID) 75 mcg tablet Take 1 tablet by mouth once daily. - FOLIC ACID ORAL Take by mouth. - ferrous sulfate (IRON) 325 mg (65 mg iron) tablet Take 325 mg by mouth. - nitroglycerin sublingual (NITROQUICK) 0.4 mg SL tablet Dissolve 1 tablet under the tongue every 5 minutes as needed. As directed for chest pain. IF NO RELIEF CALL 911 - isosorbide mononitrate ER (IMDUR) 60 mg 24 hr tablet Take 1 tablet by mouth once daily. - ELIQUIS 5 mg tab(s) Take 1 tablet by mouth two times a day. - rosuvastatin (CRESTOR) 40 mg tablet Take 1 tablet by mouth daily at bedtime. - Blood Pressure Monitor (BLOOD PRESSURE KIT) 1 Each once daily as needed. - metFORMIN ER (GLUCOPHAGE XR) 500 mg 24 hr tablet Take 1 tablet by mouth two times a day with meals. As directed - ACETAMINOPHEN/DIPHENHYDRAMINE (TYLENOL PM EXTRA STRENGTH ORAL) Take by mouth every 8 hours as needed. - THERAPEUTIC MULTIVITAMIN TAB Take by mouth once daily. Problem List As Of Date 08/17/2025 Noted Resolved Hypothyroidism [E03.9] Mixed hyperlipidemia [E78.2] 06/15/2006 CERVICALGIA [M54.2] 06/30/2007 08/08/2007 OTHER HAMMER TOE [M20.40] 07/23/2008 JOINT PAIN-SHLDER [M25.519] 09/17/2008 Migraine [G43.909] 08/23/2009 11/19/2020 GERD (Gastroesophageal Reflux Disease) [K21.9] 11/13/2009 Occlusion and stenosis of carotid artery withou*01/03/2010 CAD (coronary artery disease) [I25.10] 07/30/2010 Diverticulitis of Colon [K57.32] 08/22/2010 SUMMARY [V999.95] 01/29/2011 09/26/2021 Postsurgical percutaneous transluminal coronary*02/04/2011 Esophagitis [K20.90] 04/03/2011 09/26/2021 Dupuytren's contracture [M72.0] 11/01/2012 Trigger ring finger of left hand [M65.342] 12/19/2012 Sacroiliitis, not elsewhere classified (HCC) [M*02/07/2013 05/17/2020 Thoracic and lumbosacral neuritis [M54.14, M54.*02/07/2013 History of lumbar laminectomy [Z98.890] 10/21/2015 Bulge of lumbar disc without myelopathy [M51.36*10/21/2015 Type 2 diabetes mellitus with stage 3a chronic *10/14/2016 Stage 3a chronic kidney disease (HCC) [N18.31] 10/14/2016 Trigger thumb of left hand [M65.312] 08/12/2017 11/26/2017 Trigger finger, right ring finger [M65.341] 08/08/2018 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 [K22.70] 09/20/2018 Chronic pain of left knee--since contusion [M25*10/06/2018 Thoracic aortic aneurysm without rupture (HCC) *08/26/2019 Hypertensive kidney disease with stage 3a chron*09/26/2021 Angina pectoris (HCC) [I20.9] 02/12/2023 07/18/2023 Essential (primary) hypertension [I10] 03/02/2022 History of left heart catheterization (LHC) [Z9*02/12/2023 PAF (paroxysmal atrial fibrillation) (HCC) [I48*02/12/2023 Presence of stent in coronary artery [Z95.5] 01/27/2011 Pure hypercholesterolemia [E78.00] 03/02/2022 Persistent atrial fibrillation (HCC) [I48.19] 06/20/2025 Encounter Status:Closed by MISHA ADAMSON on 08/17/25 [facility] 08-14-2025 Progress note [facility] 08-14-2025 Progress note Note Date/Time August 14, 2025 3:02pm [facility] [address] [place] [address] OFFICE VISIT Date of Service: 08/14/25 MR#: [id number] Acct: [id number] Name: DOLORES VILLA Rep #: [id number] : 1945 Provider: Dr. Rei Capellan MD Age/Sex: 79/F [place] [facility] [facility] [place]: Signed HPI HPI History of Present Illness Details: This lady with history of permanent atrial fibrillation, coronary artery disease, diabetes mellitus, hypertension, tricuspid valve regurgitation and mildLV systolic dysfunction is here for follow-up visit. Denies any complaints today. No chest pain. No shortness of breath. No palpitations. No orthopnea or PND. No ankle edema. Denies any lightheadednessor dizziness. No syncope or presyncope. Patient has been complaining of frequent urination with taking her furosemide 20mg daily. Intake Vital Signs 02/15/25 14:02 08/14/25 14:34 Height 5 ft 5 ft Weight: 113 lb 112 lb BMI 22.0 21.9 BP 96/58 L 90/57 L Blood Pressure Location Lt brachial Lt brachial Position Sitting Sitting Respiration 16 16 Pulse 81 77 Pulse Source Monitor Monitor Pulse Oximetry (%) 96 Oxygen Delivery Method room air Intake Visit Reasons: 6 M FU Radiation Oncology Manager Required: No Accompanied by: Self Is patient in pain?: No Allergies hydrochlorothiazide Allergy (Verified 08/14/25 14:34) headache lorazepam (From Ativan) Allergy (Verified 08/14/25 14:34) Unknown NSAIDS (Non-Steroidal Anti-Inflamma Allergy (Verified 08/14/25 14:34) Swelling Sulfa (Sulfonamide Antibiotics) Allergy (Verified 08/14/25 14:34) Unknown Medications ?Medication ?Instructions ?Recorded ?Confirmed ?Type levothyroxine 75 mcg tablet 75 mcg PO DAILY 04/11/15 0 08/14/25 History multivitamin with folic acid 400 1 tab PO DAILY 08/14/25 History mcg tablet nitroglycerin 0.4 mg sublingual 0.4 mg sublingual Q5M PRN Chest 04/11/15 08/14/25 History tablet Pain glipizide 5 mg tablet 5 mg PO BID 07/27/19 5 History omeprazole 20 mg capsule,delayed 20 mg PO DAILY 08/14/25 History release ferrous sulfate 325 mg (65 mg 325 mg PO DAILY 02/23/24 08/14/25 History iron) tablet folic acid 800 mcg tablet 0.8 mg PO DAILY 02/23/24 History metformin 500 mg tablet,extended 500 mg PO BID 4 08/14/25 History release 24 hr rosuvastatin 40 mg tablet 40 mg PO QHS #90 tabs 08/14/25 Rx metoprolol tartrate 50 mg tablet 50 mg PO BID #180 tab s 02/15/25 08/14/25 Rx dapagliflozin propanediol 10 mg 10 mg PO QAM #90 tabs 03/14/25 08/14/25 Rx tablet (Farxiga) apixaban 5 mg tablet (Eliquis) 5 mg PO BID #180 tabs 0 03/19/25 08/14/25 Rx acetaminophen 500 mg tablet 1,000 mg PO Q8H PRN 08/14/25 History cholecalciferol (vitamin D3) 50 2,000 unit PO DAILY 08/14/25 History mcg (2,000 unit) capsule furosemide 20 mg tablet (Lasix) 20 mg PO Q OTHER DAY # 30 tabs 08/14/25 08/14/25 Rx isosorbide mononitrate 30 mg 30 mg PO QAM #30 tabs 08/14/25 Rx tablet,extended release 24 hr lisinopril 10 mg tablet 10 mg PO QDAY 08/14/2508/14 History potassium chloride 10 mEq 10 meq PO .every other day # 30 tabs 08/14/25 08/14/25 Rx tablet,extended release(part/cryst) Ejection fraction %: 57 Have you fallen in the past year?: No PFSH Medical History Longstanding persistent atrial fibrillation Preoperative cardiovascular examination Chest pain PAF (paroxysmal atrial fibrillation) New onset atrial fibrillation Angina pectoris Type 2 diabetes mellitus Presence of stent in coronary artery (~01/30/11) Atherosclerotic heart disease of [place] coronary artery without angina pectoris Pure hypercholesterolemia Essential hypertension GERD (gastroesophageal reflux disease) Hypothyroidism Surgical History H/O shoulder replacement History of left heart catheterization (LHC) (~03/24/22) History of repair of right rotator cuff (~01/10/21) History of tonsillectomy History of lumpectomy of both breasts History of hemorrhoidectomy History of hysterectomy History of colectomy Status post trigger finger release Presence of coronary angioplasty implant and graft (~01/30/11) Family History Mother Myocardial infarction Father Myocardial infarction Hypertension Brother CAD (coronary artery disease) CVA (cerebral vascular accident) Brother Myocardial infarction CAD (coronary artery disease) Sister Myocardial infarction CAD (coronary artery disease) Social History Smoking Status: Never smoker alcohol intake: never substance use type: does not use caffeine: Yes Type: coffee Number of servings: 3 ROS Const Const: Positive for fatigue; Negative for weakness Eyes Eyes: Negative for change in vision ENT ENT: Positive for balance problems; Negative for dizziness Cardio Chest Pain: No Palpitations: No Edema: None Resp Respiratory: Negative for SOB with activity, SOB at rest or SOB orthopnea\SOB lying down GI GI: Negative nausea or heartburn Musc Musc: Positive for balance problems Neuro Neuro: Negative for dizziness, lightheadedness, near syncope, syncope or weakness Endo Endo: Positive for fatigue Cardiology Exam Const Appearance: comfortable and no acute distress Nutritional Appearance: well nourished Neck Neck: no JVD Carotids: Negative bruit Chest Auscultation: Bilateral: Clear to Auscultation Cardio Rhythm: irregularly irregular Heart sounds: S1 normal and S2 normal Neuro General: patient alert, patient awake and patient oriented x3 Extremities Lower Extremity Edema: None: Bilateral Supplemental Info Supplemental Information Labs: No Data to Display Diagnostics: Electrocardiogram Echocardiogram Stress Test Stress Test Nuclear Medicine Chest X-Ray Pulmonary: No Data to Display Past Visits: Cardiology Visit 08/14/25 Assessment and Plan Assessment and Plan (1) Coronary artery disease: Status: Chronic Plan: History of HCRISTELLE to the LAD. Apixaban. Beta-blockers. Imdur. (2) Presence of stent in coronary artery: Status: Chronic Comment: PTCA/CHRISTELLE to LAD 01/30/11 Plan: Continue metoprolol. Aspirin. Risk factor modification. (3) Longstanding persistent atrial fibrillation: Status: Chronic Plan: Apixaban and metoprolol. (4) Cardiomyopathy: Status: Chronic Plan: Beta-blockers, Farxiga, lisinopril. Repeat echo. (5) Mitral valve regurgitation: Status: Chronic Plan: Periodic echo and clinical surveillance. (6) Tricuspid regurgitation: Status: Chronic Plan: Moderately severe tricuspid valve regurgitation noted on echocardiogram. Furosemide. (7) Essential hypertension: Status: Chronic Plan: Furosemide. Metoprolol. Imdur. Blood pressure borderline low. Decrease Imdurto 30 mg daily. Also change furosemide to 20 mg every other day with potassium supplement. (8) Pure hypercholesterolemia: Status: Chronic Plan: Rosuvastatin. Continue to manage as per PCP. Medications: New furosemide (Lasix) 20 mg PO Q OTHER DAY 30 tabs 6RF potassium chloride ER 10 mEq PO .every other day 30 tabs 6RF isosorbide mononitrate ER 30 mg PO QAM 30 tabs 6RF Discontinued isosorbide mononitrate ER Discontinued Reason: Order Changed TAKE 1 TABLET BY MOUTH DAILY 90 tabs 3RF Plan Details Follow Up: 6 Months Coding Level of Care Code Off vis,est,level 4 Diagnoses Coronary artery disease I25.10 Presence of stent in coronary artery Z95.5 Longstanding persistent atrial fibrillation I48.11 Cardiomyopathy I42.9 Mitral valve regurgitation I34.0 Tricuspid regurgitation I07.1 Essential hypertension I10 Pure hypercholesterolemia E78.00 Coding Level of Care Code Off vis,est,level 4 Diagnoses Coronary artery disease I25.10 Presence of stent in coronary artery Z95.5 Longstanding persistent atrial fibrillation I48.11 Cardiomyopathy I42.9 Mitral valve regurgitation I34.0 Tricuspid regurgitation I07.1 Essential hypertension I10 Pure hypercholesterolemia E78.00 Clinical Quality Measures Falls Risk Screening/Assistive Devices Have you fallen in the past year?: No Cardiac Ejection fraction %: 57 08/14/25 1502 <Electronically signed by Tae Capellan MD> Date _ Tae Capellan MD Cosigner Signature: Date (if applicable) CC: Dr. Matthew Spencer MD ~ [facility] [employer] Work Phone: [phone]) 566-957008-15-2025 NoteHNO ID: [id number] Author: FIONA SHIN RN Service: ? Author Type: Registered Nurse Type: Progress Notes Filed: 07/13/2025 15:44 Note Text: Value Based Care Coordination Chart Review Provider Action / FYI: Does not meet High Utilization CDM criteria Upon review of patient chart, the patient is excluded from Chronic Disease Management Patient is not a candidate for CDM at this time and placed in the following status: Deferred Action taken: No action needed . Fiona Shin RN July 13, 2025 3:42 [facility]08-15-2025 History of Present illness Narrative* Fiona Shin RN - 07/13/2025 3:42 PM EDT Value Based Care Coordination Chart Review Provider Action / FYI: Does not meet High Utilization CDM criteria Upon review of patient chart, the patient is excluded from Chronic Disease Management Patient is not a candidate for CDM at this time and placed in the following status: Deferred Action taken: No action needed . Fiona Shin RN July 13, 2025 3:42 [facility] NotePatient Outreach ([facility]) DOLORES VILLA ([id number]) 1945 F Date Time Provider Department 07/13/25 FIONA SHIN [facility] During your visit today, we recorded the following information about you: Fiona Shin RN 07/13/2025 3:44 PM Signed Value Based Care Coordination Chart Review Provider Action / FYI: Does not meet High Utilization CDM criteria Upon review of patient chart, the patient is excluded from Chronic Disease Management Patient is not a candidate for CDM at this time and placed in the following status: Deferred Action taken: No action needed . Fiona Shin RN July 13, 2025 3:42 PM Allergies As of Date: 07/13/2025 Noted Allergy Reaction ATIVAN (LORAZEPAM) 12/07/2005 14 - Other: See Comments Comments: family members had MS change BENZONATATE 04/26/2015 8 - GI Upset HCTZ (HYDROCHLOROTHIAZIDE) 12/10/2008 5 - Intolerance Comments: headache SEASONAL ALLERGIES 12/05/2012 14 - Other: See Comments Comments: Receiving allergy shots. SULFA (SULFONAMIDE ANTIBIOTICS) 12/07/2005 16 - Unknown Date Reviewed: 05/25/2025 Reviewed by: Henrique Garcia APRN.INFORMATION CODER - Fully Assessed Reason for Visit: Transition Of Care [4074] Cmt: Chart review Prescriptions as of 07/13/2025 - lisinopril (ZESTRIL) 10 mg tablet Take 1 tablet by mouth once daily. - metoprolol tartrate, short acting, (LOPRESSOR) 50 mg tablet Take 1 tablet by mouth two times a day. - cholecalciferol (VITAMIN D3) 50 mcg (2,000 unit) tablet Take 1 tablet by mouth once daily. - dapagliflozin propanediol (FARXIGA) 5 mg tablet Take 1 tablet by mouth daily with breakfast. - blood sugar diagnostic (BLOOD GLUCOSE TEST) test strip Test blood sugar(s) 1 time daily and as needed. Dx: Type 2 DM - Uncontrolled E11.9 Insulin: No - omeprazole (PRILOSEC) 20 mg capsule Take 1 capsule by mouth daily before breakfast. 1/2 hr before meal. - glipiZIDE (GLUCOTROL) 5 mg tablet Take 1 tablet by mouth two times a day before meals. - Lancets Test blood sugar(s) 1 time daily and as needed. Dx: Type 2 DM - Uncontrolled E11.9 Insulin: No - levothyroxine (SYNTHROID) 75 mcg tablet Take 1 tablet by mouth once daily. - FOLIC ACID ORAL Take by mouth. - ferrous sulfate (IRON) 325 mg (65 mg iron) tablet Take 325 mg by mouth. - nitroglycerin sublingual (NITROQUICK) 0.4 mg SL tablet Dissolve 1 tablet under the tongue every 5 minutes as needed. As directed for chest pain. IF NO RELIEF CALL 911 - isosorbide mononitrate ER (IMDUR) 60 mg 24 hr tablet Take 1 tablet by mouth once daily. - ELIQUIS 5 mg tab(s) Take 1 tablet by mouth two times a day. - rosuvastatin (CRESTOR) 40 mg tablet Take 1 tablet by mouth daily at bedtime. - Blood Pressure Monitor (BLOOD PRESSURE KIT) 1 Each once daily as needed. - metFORMIN ER (GLUCOPHAGE XR) 500 mg 24 hr tablet Take 1 tablet by mouth two times a day with meals. As directed - ACETAMINOPHEN/DIPHENHYDRAMINE (TYLENOL PM EXTRA STRENGTH ORAL) Take by mouth every 8 hours as needed. - THERAPEUTIC MULTIVITAMIN TAB Take by mouth once daily. Problem List As Of Date 07/13/2025 Noted Resolved Hypothyroidism [E03.9] Mixed hyperlipidemia [E78.2] 06/15/2006 CERVICALGIA [M54.2] 06/30/2007 08/08/2007 OTHER HAMMER TOE [M20.40] 07/23/2008 JOINT PAIN-SHLDER [M25.519] 09/17/2008 Migraine [G43.909] 08/23/2009 11/19/2020 GERD (Gastroesophageal Reflux Disease) [K21.9] 11/13/2009 Occlusion and stenosis of carotid artery withou*01/03/2010 CAD (coronary artery disease) [I25.10] 07/30/2010 Diverticulitis of Colon [K57.32] 08/22/2010 SUMMARY [V999.95] 01/29/2011 09/26/2021 Postsurgical percutaneous transluminal coronary*02/04/2011 Esophagitis [K20.90] 04/03/2011 09/26/2021 Dupuytren's contracture [M72.0] 11/01/2012 Trigger ring finger of left hand [M65.342] 12/19/2012 Sacroiliitis, not elsewhere classified (HCC) [M*02/07/2013 05/17/2020 Thoracic and lumbosacral neuritis [M54.14, M54.*02/07/2013 History of lumbar laminectomy [Z98.890] 10/21/2015 Bulge of lumbar disc without myelopathy [M51.36*10/21/2015 Type 2 diabetes mellitus with stage 3a chronic *10/14/2016 Stage 3a chronic kidney disease (HCC) [N18.31] 10/14/2016 Trigger thumb of left hand [M65.312] 08/12/2017 11/26/2017 Trigger finger, right ring finger [M65.341] 08/08/2018 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 [K22.70] 09/20/2018 Chronic pain of left knee--since contusion [M25*10/06/2018 Thoracic aortic aneurysm without rupture (HCC) *08/26/2019 Hypertensive kidney disease with stage 3a chron*09/26/2021 Angina pectoris (HCC) [I20.9] 02/12/2023 07/18/2023 Essential (primary) hypertension [I10] 03/02/2022 History of left heart catheterization (LHC) [Z9*02/12/2023 PAF (paroxysmal atrial fibrillation) (HCC) [I48*02/12/2023 Presence of stent in coronary artery [Z95.5] 01/27/2011 Pure hypercholesterolemia [E78.00] 03/02/2022 Persiste (more content not included)...[facility]07-23-2025 Note HNO ID: [id number] Author: MATTHEW SPENCER MD Service: ? Author Type: Physician Type: Progress Notes Filed: 06/28/2025 14:41 Note Text: Subjective Dolores Villa is a 79 year old female. HPI Dolores Villa is a 79-year-old female with a history of DM, CKD, and A-fib, presenting for a Medicare Annual Wellness Visit. Dolores reports difficulty maintaining adequate hydration, consuming less than 6-8 cups of fluid daily. She notes increased urinary frequency since starting Farxiga, which she attributes to the medication's effects. She is currently taking Farxiga 5 mg, glipizide, and metformin BID for diabetes management. Recent lab results show an A1c of 7.1. She expresses a desire to reduce her medication burden if possible. She reports chronic insomnia, averaging 2-3 hours of sleep per night for many years. She takes naps around 1300 for about an hour but is considering discontinuing this practice as it affects her nighttime sleep. She denies any significant symptoms of depression. She experiences fatigue and leg weakness, particularly when climbing stairs, which limits her exercise to once a week. She aims to increase her walking routine to 30 minutes per session and engages in yard work. She consumes healthy foods several days a week, including mixed vegetables and fruits. Dolores has a history of falls, one of which resulted in rib pain and dyspnea, although imaging did not show any fractures. She describes a recent fall where she hit her head and was unable to move for 30 minutes. She uses a medical alert system at home but notes it is ineffective outside her residence. She is scheduled for an eye exam with Dr. Cochran next month and sees a payroll consultant at the [facility]. Dolores has a living will on file from 2006 but is unsure about her healthcare power of banking attorney. She has one living sister with a history of diabetes and HTN. PAST MEDICAL HISTORY Diagnosis Date Abdominal pain, left lower quadrant Abdominal pain, unspecified site 08/22/2010 Arthritis 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 09/20/2018 Added automatically from request for surgery [id number] Barretts esophagus EGD 2010 and 08/25/13 Bronchitis 07/30/2010 Pt was having cough with chest pain . -Was started on nebulisation and antibiotic at [facility]. -Symtoms better now. CAD (coronary artery disease) s/p PCI/CHRISTELLE to LAD with 2.75x15 Xience dilated to 3.4 Complication of anesthesia nausea, vomiting Controlled type 2 diabetes mellitus without complication, without long-term current use of insulin ([facility]) 10/14/2016 Contusion of shoulder region Diverticulitis of sigmoid colon 09/17/2010 Dupuytren's contracture 11/01/2012 left worse than right Enlargement of lymph nodes Esophageal reflux Esophagitis, unspecified 04/03/2011 Generalized osteoarthrosis, unspecified site History of colonic polyps 09/20/2018 Added automatically from request for surgery [id number] Hypertension Kidney disease Lichen sclerosus Migraine 08/23/2009 Migraine without aura, without mention of intractable migraine without mention of status migrainosus Pain in joint, shoulder region PONV (postoperative nausea and vomiting) Pure hypercholesterolemia Sciatica 10/09/2010 Sebaceous cyst 05/01/2015 Subacute thyroiditis Thoracic aortic aneurysm without rupture 08/26/2019 Trigger thumb of left hand 08/12/2017 Added automatically from request for surgery [id number] Surgery effective Unspecified hypothyroidism Current Outpatient Medications Medication Sig lisinopril (ZESTRIL) 10 mg tablet Take 1 tablet by mouth once daily. metoprolol tartrate, short acting, (LOPRESSOR) 50 mg tablet Take 1 tablet by mouth two times a day. cholecalciferol (VITAMIN D3) 50 mcg (2,000 unit) tablet Take 1 tablet by mouth once daily. dapagliflozin propanediol (FARXIGA) 5 mg tablet Take 1 tablet by mouth daily with breakfast. blood sugar diagnostic (BLOOD GLUCOSE TEST) test strip Test blood sugar(s) 1 time daily and as needed. Dx: Type 2 DM - Uncontrolled E11.9 Insulin: No omeprazole (PRILOSEC) 20 mg capsule Take 1 capsule by mouth daily before breakfast. 1/2 hr before meal. glipiZIDE (GLUCOTROL) 5 mg tablet Take 1 tablet by mouth two times a day before meals. Lancets Test blood sugar(s) 1 time daily and as needed. Dx: Type 2 DM - Uncontrolled E11.9 Insulin: No levothyroxine (SYNTHROID) 75 mcg tablet Take 1 tablet by mouth once daily. FOLIC ACID ORAL Take by mouth. ferrous sulfate (IRON) 325 mg (65 mg iron) tablet Take 325 mg by mouth. nitroglycerin sublingual (NITROQUICK) 0.4 mg SL tablet Dissolve 1 tablet under the tongue every 5 minutes as needed. As directed for chest pain. IF NO RELIEF CALL 911 isosorbide mononitrate ER (IMDUR) 60 mg 24 hr tablet Take 1 tablet by mouth once daily. ELIQUIS 5 mg tab(s) Take 1 tablet by mouth two times a day. rosuvastatin (CRESTOR) 40 mg tablet Take 1 tablet by mouth daily at bedtime. Bloo (more content not included)...[facility]07-23-2025 History of Present illness Narrative* Matthew Spencer MD - 06/20/2025 8:47 AM EDT Images from the original note were not included. Subjective Dolores Villa is a 79 year old female. HPI HISTORY Dolores Villa is a 79 year old lady here for yearly exam and follow up appointment. PAST MEDICAL HISTORY Diagnosis Date Abdominal pain, left lower quadrant Abdominal pain, unspecified site 08/22/2010 Arthritis 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 09/20/2018 Added automatically from request for surgery [id number] Barretts esophagus EGD 2010 and 08/25/13 Bronchitis 07/30/2010 Pt was having cough with chest pain . -Was started on [facility]bulisation and antibiotic at [facility]. -Symtoms better now. CAD (coronary artery disease) s/p PCI/CHRISTELLE to LAD with 2.75x15 Xience dilated to 3.4 Complication of anesthesia nausea, vomiting Controlled type 2 diabetes mellitus without complication, without long-term current use of insulin ([facility]) 10/14/2016 Contusion of shoulder region Diverticulitis of sigmoid colon 09/17/2010 Dupuytren's contracture 11/01/2012 left worse than right Enlargement of lymph nodes Esophageal reflux Esophagitis, unspecified 04/03/2011 Generalized osteoarthrosis, unspecified site History of colonic polyps 09/20/2018 Added automatically from request for surgery [id number] Hypertension Kidney disease Lichen sclerosus Migraine 08/23/2009 Migraine without aura, without mention of intractable migraine without mention of status migrainosus Pain in joint, shoulder region PONV (postoperative nausea and vomiting) Pure hypercholesterolemia Sciatica 10/09/2010 Sebaceous cyst 05/01/2015 Subacute thyroiditis Thoracic aortic aneurysm without rupture 08/26/2019 Trigger thumb of left hand 08/12/2017 Added automatically from request for surgery [id number] Surgery effective Unspecified hypothyroidism Current Outpatient Medications Medication Sig lisinopril (ZESTRIL) 10 mg tablet Take 1 tablet by mouth once daily. metoprolol tartrate, short acting, (LOPRESSOR) 50 mg tablet Take 1 tablet by mouth two times a day. cholecalciferol (VITAMIN D3) 50 mcg (2,000 unit) tablet Take 1 tablet by mouth once daily. dapagliflozin propanediol (FARXIGA) 5 mg tablet Take 1 tablet by mouth daily with breakfast. blood sugar diagnostic (BLOOD GLUCOSE TEST) test strip Test blood sugar(s) 1 time daily and as needed. Dx: Type 2 DM - Uncontrolled E11.9 Insulin: No omeprazole (PRILOSEC) 20 mg capsule Take 1 capsule by mouth daily before breakfast. 1/2 hr before meal. glipiZIDE (GLUCOTROL) 5 mg tablet Take 1 tablet by mouth two times a day before meals. Lancets Test blood sugar(s) 1 time daily and as needed. Dx: Type 2 DM - Uncontrolled E11.9 Insulin:No levothyroxine (SYNTHROID) 75 mcg tablet Take 1 tablet by mouth once daily. FOLIC ACID ORAL Take by mouth. ferrous sulfate (IRON) 325 mg (65 mg iron) tablet Take 325 mg by mouth. nitroglycerin sublingual (NITROQUICK) 0.4 mg SL tablet Dissolve 1 tablet under the tongue every 5 minutes as needed. As directed for chest pain. IF NO RELIEF CALL 911 isosorbide mononitrate ER (IMDUR) 60 mg 24 hr tablet Take 1 tablet by mouth once daily. ELIQUIS 5 mg tab(s) Take 1 tablet by mouth two times a day. rosuvastatin (CRESTOR) 40 mg tablet Take 1 tablet by mouth daily at bedtime. Blood Pressure Monitor (BLOOD PRESSURE KIT) 1 Each once daily as needed. metFORMIN ER (GLUCOPHAGE XR) 500 mg 24 hr tablet Take 1 tablet by mouth two times a day with meals.As directed ACETAMINOPHEN/DIPHENHYDRAMINE (TYLENOL PM EXTRA STRENGTH ORAL) Take by mouth every 8 hours as needed. THERAPEUTIC MULTIVITAMIN TAB Take by mouth once daily. No current facility-administered medications for this visit. ALLERGIES Allergen Reactions Ativan [Lorazepam] Other: See Comments family members had MS change Benzonatate GI Upset Hctz [Hydrochloroth* Intolerance headache Seasonal Allergies Other: See Comments Receiving allergy shots. Sulfa (Sulfonamide * Unknown FAMILY HISTORY Problem Relation Age of Onset Heart Mother Stroke Mother Hypertension Mother Hypertension Father Heart Father Stroke Father Allergies Sister Diabetes Sister Hypertension Sister Social History Tobacco Use Smoking status: Never Passive exposure: Never Smokeless tobacco: Never Vaping Use Vaping status: Never Used Substance Use Topics Alcohol use: No Drug use: No Review of Systems Objective BP 120/80 Pulse 72 Temp 36.6 C (97.8 F) (Left Tympanic) Resp 20 Ht 152.4 cm (5') Wt 53.6 kg (118 lb 2.7 oz) BMI 23.08 kg/m Physical Exam Vitals reviewed. Constitutional: Appearance: Normal appearance. She is well-developed. HENT: Head: Normocephalic and atraumatic. Right Ear: Tympanic membrane and external ear normal. Left Ear: Tympanic membrane, ear canal and external ear normal. Nose: Nose normal. Mouth/Throat: Mouth: Mucous membranes are moist. Eyes: Conjunctiva/sclera: Conjunctivae normal. Pupils: Pupils are equal, round, and reactive to light. Neck: Thyroid: No thyromegaly. Vascular: No carotid bruit. Cardiovascular: Rate and Rhythm: Normal rate. Rhythm irregularly irregular. Pulses: Normal pulses. Dorsalis pedis pulses are 2+ on the right side and 2+ on the left side. Posterior tibial pulses are 2+ on the right side and 2+ on the left side. Heart sounds: Normal heart sounds. No murmur heard. No friction rub. No gallop. Pulmonary: Effort: Pulmonary effort is normal. Breath sounds: Normal breath sounds. Abdominal: General: Bowel sounds are normal. There is no distension. Palpations: Abdomen is soft. There is no mass. Tenderness: There is no abdominal tenderness. Musculoskeletal: General: No deformity. Normal range of motion. Right lower leg: No edema. Left lower leg: No edema. Feet: Right foot: Protective Sensation: 10 sites tested. 10 sites sensed. Skin integrity: Skin integrity normal. Toenail Condition: Right toenails are normal. Left foot: Protective Sensation: 10 sites tested. 10 sites sensed. Skin integrity: Skin integrity normal. Toenail Condition: Left toenails are normal. Lymphadenopathy: Cervical: No cervical adenopathy. Skin: General: Skin is warm and dry. Coloration: Skin is not jaundiced or pale. Findings: No rash. Neurological: General: No focal deficit present. Mental Status: She is alert and oriented to person, place, and time. Cranial Nerves: No cranial nerve deficit. Sensory: No sensory deficit. Motor: No abnormal muscle tone. Coordination: Coordination normal. Deep Tendon Reflexes: Reflexes normal. Psychiatric: Attention and Perception: Attention and perception normal. Mood and Affect: Mood and affect normal. Speech: Speech normal. Behavior: Behavior normal. Thought Content: Thought content normal. Cognition and Memory: Cognition and memory normal. Judgment: Judgment normal. Latest Ref [facility] 06/08/2024 11/18/2024 12/18/2024 01/19/2025 06/11/2025 WBC 3.70 - 11.00 k/uL 7.98 7.78 7.88 RBC 3.90 - 5.20 m/uL 3.68 (L) 3.72 (L) 3.71 (L) Hemoglobin 11.5 - 15.5 g/dL 11.5 11.9 12.2 Hematocrit 36.0 - 46.0 % 36.4 37.5 37.1 MCV 80.0 - 100.0 fL 98.9 100.8 (H) 100.0 MCH 26.0 - 34.0 pg 31.3 32.0 32.9 MCHC 30.5 - 36.0 g/dL 31.6 31.7 32.9 RDW-CV 11.5 - 15.0 % 15.3 (H) 15.9 (H) 15.4 (H) Platelet Count 150 - 400 k/uL 242 219 210 MPV 9.0 - 12.7 fL 11.7 11.6 10.5 Neut% % 59.6 Abs Neut (ANC) 1.45 - 7.50 k/uL 4.77 Lymph% % 24.6 Abs Lymph 1.00 - 4.00 k/uL 1.96 [place]% % 12.9 Abs [place] <0.87 k/uL 1.03 (H) Eosin% % 1.3 Abs Eosin <0.46 k/uL 0.10 Baso% % 0.8 Abs Baso <0.11 k/uL 0.06 Immature Gran % % 0.8 IMMATURE GRANS (ABS) <0.10 k/uL 0.06 NRBC /100 WBC 0.0 Absolute nRBC <0.01 k/uL <0.01 <0.01 <0.01 DTYPE Auto Protein, Total 6.3 - 8.0 g/dL 7.7 7.9 7.8 Albumin 3.9 - 4.9 g/dL 4.2 4.0 4.2 Calcium 8.5 - 10.2 mg/dL 10.3 (H) 10.1 10.2 10.0 Bilirubin, Total 0.2 - 1.3 mg/dL 0.4 0.5 0.5 Alkaline Phosphatase 34 - 123 U/L 63 87 94 AST 13 - 35 U/L 22 23 16 ALT 7 - 38 U/L 9 12 9 Glucose 74 - 99 mg/dL 82 101 (H) 126 (H) 109 (H) BUN 7 - 21 mg/dL 17 13 19 20 Creatinine 0.58 - 0.96 mg/dL 1.59 (H) 1.43 (H) 1.35 (H) 1.55 (H) Sodium 136 - 144 mmol/L 143 140 140 140 Potassium 3.7 - 5.1 mmol/L 4.9 4.7 4.8 4.3 Chloride 98 - 107 mmol/L 106 102 104 104 CO2 22 - 30 mmol/L 25 28 29 22 Anion Gap 8 - 15 mmol/L 12 10 7 (L) 14 eGFR >=60 mL/min/1.73m 33 (L) 37 (L) 40 (L) 34 (L) Cholesterol, Total <200 mg/dL 126 113 Triglyceride <150 mg/dL 93 90 HDL Cholesterol >39 mg/dL 35 (L) 36 (L) Non HDL Cholesterol <130 mg/dL 91 77 Fasting Time hrs 12 12 VLDL Cholesterol <30 mg/dL 19 13 TC:HDL Ratio <5.10 3.60 3.14 LDL Cholesterol, Calculated <100 mg/dL 72 59 LDL:HDL Ratio <2.54 2.06 1.64 WOUND CULTURE Few Methicillin-RESISTANT Staphylococcus aureus (MRSA) ! Smear Result No organisms seen Smear Result No Polymorphonuclear Leukocytes Creatinine, Ur Random (UCRR) 20.0 - 300.0 mg/dL 118.0 Albumin, Urine Random mg/L 100.5 Albumin/Creat Ratio <30 mg/g 85 (H) Hemoglobin A1C 4.3 - 5.6 % 7.3 (H) 7.0 (H) 7.1 (H) Estimated Average Glucose mg/dL 163 154 157 Vitamin D 25 Hydroxy 31.0 - 80.0 ng/mL 51.3 43.6 TSH 0.270 - 4.200 mIU/L 1.660 Magnesium 1.7 - 2.3 mg/dL 1.9 Legend: (L) Low (H) High ! Abnormal Assessment & Plan Medicare annual wellness visit, subsequent Controlled type 2 diabetes mellitus with microalbuminuria, without long-term current use of insulin(HCC) Stage 3b chronic kidney disease (HCC) Acquired hypothyroidism Persistent atrial fibrillation (HCC) Coronary artery disease involving [place] heart without angina pectoris, unspecified vessel or lesion type Vitamin D deficiency Pure hypercholesterolemia Encounter for long-term current use of medication Encounter for immunization Dolores Villa is a 79 year old female here for a Medicare wellness visit. Medicare Health Risk Assessment General Health Good Exercise: Minutes/Day 30 min Exercise: Days/Week 1 day Alcohol: Daily Use Never Alcohol: Drinks/Day Patient does not drink Alcohol: 6 or more drinks Never Feel off balance No Concerns: Teeth/Dentures No Concerns: Sexual function No Troubled by feelings None of the above Frequency: Eating healthy diet More than half the days ADLs requiring help None of the above Safety precautions in home/vehicle Yes Smoke, vape, chews tobacco No Difficulty hearing No Difficulty seeing No Current Providers Specialists: I have reviewed specialist-related care of the patient in the medical record. Outside specialists seen: Dr. Prasad (Cardiology at [facility]); Dr Jones ([facility]) Medical/Family history review Reviewed and updated problem list, medical/surgical/family/social history, medications, and allergies. Opioid use review Opioid Medications (last 90 days) 05/25/2025 00:00 06/01/2025 23:59 Opioid Medications tramadol HCl 50 mg BID PRN PO -Rx End Details Outpatient prescription Anxiety/Depression screening PHQ-9 Score: 3 (Minimal Depression) Recommendation: no further intervention at this time Cognitive screening Mini Cog Score: 5 Cognitive screening reviewed and No further action needed (score 3-5). Functional Observation Was the patient's Timed Up & Go test unsteady or >= 12 seconds? No Advance Care Planning Surrogate decision maker and/or advance care plan documented Have LW on file from 2006 Measurements BP 120/80 Pulse 72 Temp 36.6 C (97.8 F) (Left Tympanic) Resp 20 Ht 152.4 cm (5') Wt 53.6 kg (118 lb 2.7 oz) BMI 23.08 kg/m Vision Screening: Follows with optometry/ophthalmology Assessment/Plan Medicare annual wellness visit, subsequent (Z00.00) - Counseled on healthy diet and regular exercise - Fall avoidance information provided - Personal[facility]* Patient Instructions* Matthew Spencer MD - 06/20/2025 8:47 AM EDT - Continue your current medications--Farxiga 5 mg, glipizide, metformin twice daily, lisinopril, metoprolol, and vitamin D--as prescribed; refills for lisinopril, metoprolol, and vitamin D have been sent to [facility] pharmacy. - Monitor your blood sugar and watch for low readings; if you notice frequent hypoglycemia, contactus to discuss lowering your glipizide dose. - Keep a close eye on kidney function: if your estimated GFR falls below 30, you will need to stop metformin; we will review your labs regularly. - Aim for 6-8 cups (48-64 oz) of fluids each day to support kidney health. Include water, noncaffeinated beverages, soups, milk, and high-water fruits/vegetables (e.g., watermelon). Try for at least 8 oz with each meal and fluids between meals. - Before your next fasting lab draw, have a small glass of water about one hour beforehand to help hydrate your kidneys without affecting your fast. - At your convenience, get these labs: basic metabolic panel (BMP), A1c, complete blood count (CBC), urine protein screen, TSH/T4, and vitamin D level. You may walk in or schedule an appointment at your preferred lab. - Add [id number] foods to your diet--marine fish (including perch or walleye), edamame, walnuts, or ground flaxseed--and, when frying fish, use heart-healthy oils. - Stay active with at least 30 minutes of walking or functional activities (e.g., yard work) most days of the week. - Continue eating a variety of healthy foods (fruits and vegetables) on at least 4-5 days each week. - Shingrix (shingles) and RSV vaccines are available at your pharmacy under Medicare Part D; plan to consider the RSV vaccine this fall. - Your eye exam with Dr. Cochran at [facility] is scheduled for June. - Schedule a follow-up visit in about 6 months to review your labs and adjust diabetes, kidney, andblood pressure management as needed. - Please bring a copy of your health care power of banking attorney and living will to your next visit so we can scan them into your record. - Continue your current medications--Farxiga 5 mg, glipizide, metformin twice daily, lisinopril, metoprolol, and vitamin D--as prescribed; refills for lisinopril, metoprolol, and vitamin D have been sent to [facility] pharmacy. - Monitor your blood sugar and watch for low readings; if you notice frequent hypoglycemia, contactus to discuss lowering your glipizide dose. - Keep a close eye on kidney function: if your estimated GFR falls below 30, you will need to stop metformin; we will review your labs regularly. - Aim for 6-8 cups (48-64 oz) of fluids each day to support kidney health. Include water, noncaffeinated beverages, soups, milk, and high-water fruits/vegetables (e.g., watermelon). Try for at least 8 oz with each meal and fluids between meals. - Before your next fasting lab draw, have a small glass of water about one hour beforehand to help hydrate your kidneys without affecting your fast. - At your convenience, get these labs: basic metabolic panel (BMP), A1c, complete blood count (CBC), urine protein screen, TSH/T4, and vitamin D level. You may walk in or schedule an appointment at your preferred lab. - Add [id number] foods to your diet--marine fish (including perch or walleye), edamame, walnuts, or ground flaxseed--and, when frying fish, use heart-healthy oils. - Stay active with at least 30 minutes of walking or functional activities (e.g., yard work) most days of the week. - Continue eating a variety of healthy foods (fruits and vegetables) on at least 4-5 days each week. - Shingrix (shingles) and RSV vaccines are available at your pharmacy under Medicare Part D; plan to consider the RSV vaccine this fall. - Your eye exam with Dr. Cochran at [facility] is scheduled for June. - Schedule a follow-up visit in about 6 months to review your labs and adjust diabetes, kidney, andblood pressure management as needed. - Please bring a copy of your health care power of banking attorney and living will to your next visit so we can scan them into your record. Screening schedule The following prevention plan is recommended: Shingrix Vaccine(2 of 3) due on 01/24/2016 Diabetic Foot Exam due on 06/14/2025 WHAT YOU CAN DO TO PREVENT FALLS Many falls can be prevented. By making some changes, you can lower your chances of falling. Four things YOU can do to prevent falls for you* and your caregiver 1. Begin a regular exercise program Exercise is one of the most important ways to lower your chances of falling. It makes you stronger and helps you feel better. Exercises that improve balance and coordination (like William Chi) are the most helpful. Lack of exercise leads to weakness and increases your chances of falling. Ask your doctor or health care provider about the best type of exercise program for you. 2. Have your health care provider review your medicines Have your doctor or pharmacist review all the medicines you take, even [id number] medicines. As you get older, the way medicines work in your body can change. Some medicines, or combinations of medicines, can make you sleepy or dizzy andcan cause you to fall. 3. Have your vision checked Have your eyes checked by an eye doctor at least once a year. You may be wearing the wrong glasses or have a condition like glaucoma or cataracts that limits your vision. Poor vision can increase your chances of falling. 4. Make your home safer About half of all falls happen at home. To make your home safer: Remove things you can trip over (like papers, books, clothes, and shoes) from stairs and places where you walk. Remove small throw rugs or use double-sided tape to keep the rugs from slipping. Keep items you use often in cabinets you can reach easily without using a step stool. Have grab bars put in next to your toilet and in the tub or shower. Use non-slip mats in the bathtub and on shower floors. Improve the lighting in your home. As you get older, you need brighter lights to see well. Hang light-weight curtains or shades to reduce glare. Have handrails and lights put in on all staircases. Wear shoes both inside and outside the house. Avoid going barefoot or wearing slippers. For more information, contact: Centers for Disease Control and Prevention www.cdc.gov/injury * This information may not apply if you have certain medical conditions. [facility] Telephone encounter Note * Telephone Encounter - Shira Xavier LPN - 06/19/2025 3:42 PM EDT Patient notified of providers message and verbalized understanding. [facility] Telephone encounter Note* Telephone Encounter - Shira Xavier LPN - 06/19/2025 3:42 PM EDT ----- Message from Dipika Farrar APRN.CNS sent at 06/19/2025 2:03 PM EDT ----- Carotid ultrasound showed mild coronary artery disease bilaterally, continue present management. [facility] Miscellaneous Notes* Telephone Encounter - Shira Xavier LPN - 06/19/2025 3:42 PM EDT Patient notified of providers message and verbalized understanding. * Telephone Encounter - Shira Xavier LPN - 06/19/2025 3:42 PM EDT ----- Message from Dipika Farrar APRN.CNS sent at 06/19/2025 2:03 PM EDT ----- Carotid ultrasound showed mild coronary artery disease bilaterally, continue present management. * Result Encounter Note - Dipika Hernandez APRN.CNS - 06/19/2025 2:03 PM EDT Carotid ultrasound showed mild coronary artery disease bilaterally, continue present management. documented in this encounterGen[facility]07-22-[facility]25 Progress note* Result Encounter Note - Dipika Hernandez APRN.CNS - 06/19/2025 2:03 PM EDT Carotid ultrasound showed mild coronary artery disease bilaterally, continue present management. [facility] Telephone encounter Note* Telephone Encounter - Shira Xavier LPN - 06/08/2025 4:11 PM EDT Patient notified of providers message and verbalized understanding [facility] Miscellaneous Notes* Telephone Encounter - Shira Xavier LPN - 06/08/2025 4:11 PM EDT Patient notified of providers message and verbalized understanding * Telephone Encounter - Henrique Garcia APRN.CNP - 06/08/2025 2:24 PM EDT Lab orders placed, please let her know. * Telephone Encounter - Shweta Fagan RN - 06/06/2025 10:32 AM EDT Patient calls and states that she has medicare wellness visit with provider on 06/20/2025. Patient is asking if provider wants her to get labs done prior to appointment? Please review and advise, Shweta Fagan RN documented in [facility] encounterGen[facility] Telephone encounter Note * Telephone Encounter - Henrique Garcia APRN.CNP - 06/08/2025 2:24 PM EDT Lab orders placed, please let her know. [facility] Evaluation note* Diagnosis Controlled type 2 diabetes mellitus without complication, without long-term current use of insulin (HCC)- Primary Stage 3a chronic kidney disease (HCC) Encounter for long-term current use of medication Pure hypercholesterolemia documented in this encounter [facility] Tele[facility] encounter Note* Telephone Encounter - Shweta Fagan RN - 06/06/2025 10:32 AM EDT Patient calls and states that she has medicare wellness visit with provider on 06/20/2025. Patient is asking if provider wants her to get labs done prior to appointment? Please review and advise, Shweta Fagan RN [facility] History of Present illness Narrative* Mary Jo Severino Tech - 05/25/2025 10:40 AM EDT Radiology Service Progress Note PATIENT NAME: Dolores Villa DATE OF SERVICE: May 25, 2025 TIME: 10:11 AM PATIENT IDENTITY VERIFICATION COMPLETED USING TWO (2) IDENTIFIERS: Name and Date of confirmedby patient verbally. FALL SCREENING: Has the patient had 2 falls in the last year or 1 fall with injury or currently using an Ambulatory Assistive Device (Walker, Cane, Wheelchair, Crutches, etc.)? No PATIENT GENDER DATA: Assigned female at . status: : No status:NO. PATIENT RELEVANT IMPLANT DATA REVIEWED: Not Applicable PATIENT PRESENTS WITH AN IMPLANTABLE OR ATTACHED INFORMATION CODER: No RADIOLOGY DEPARTMENT: General X-ray: Exam(s) Completed: Rib X-Ray: Left PERIPHERAL IV DATA: Not applicable SIGNED BY: Naseem Reyes May 25, 2025 10:11 AM documented in this encounterGenesis Hospital06-27-2025 NoteHNO ID: [id number] Author: MARY JO SEVERINO Tech Service: ? Author Type: Technologist Type: Progress Notes Filed: 05/25/2025 10:21 Note Text: Radiology Service Progress Note PATIENT NAME: Dolores Villa DATE OF SERVICE: May 25, 2025 TIME: 10:11 AM PATIENT IDENTITY VERIFICATION COMPLETED USING TWO (2) IDENTIFIERS: Name and Date of confirmed by patient verbally. FALL SCREENING: Has the patient had 2 falls in the last year or 1 fall with injury or currently using an Ambulatory Assistive Device (Walker, Cane, Wheelchair, Crutches, etc.)? No PATIENT GENDER DATA: Assigned female at . status: : No status: NO. PATIENT RELEVANT IMPLANT DATA REVIEWED: Not Applicable PATIENT PRESENTS WITH AN IMPLANTABLE OR ATTACHED INFORMATION CODER: No RADIOLOGY DEPARTMENT: General X-ray: Exam(s) Completed: Rib X-Ray: Left PERIPHERAL IV DATA: Not applicable SIGNED BY: Naseem Reyes May 25, 2025 10:11 [facility]06-27-2025 NoteHNO ID: [id number] Author: HENRIQUE GARCIA APRN.INFORMATION CODER Service: ? Author Type: Nurse Practitioner Type: Progress Notes Filed: 05/25/2025 10:09 Note Text: SUBJECTIVE Dolores Villa is a 79 year old female here today for acute concern. Chief Complaint Patient presents with: Fall: happened on Wednesday while climbing stairs states she hit her flank/rib area on metal handrail HPI Dolores Villa is a 79-year-old female with a history of diabetes mellitus type 2, presenting with left-sided rib pain following a fall. Dolores reports left-sided rib pain following a fall on Wednesday. She was [place] stairs [place] [employer] when her sandal caught on the steps, causing her to fall sideways into a metal railing. She did not fall down the stairs but experienced significant pain upon impact. She sustained two small bruises and reports difficulty breathing deeply, yawning, or getting up due to pain. She is unable to move her arm backward and has not previously broken a rib. She has been taking regular strength Tylenol, which helps her sleep but does not fully alleviate the pain. She has a history of taking tramadol without issues and denies a history of seizures. Her medications were reviewed today and her list is now up to date. Medications Current Outpatient Medications Medication Sig omeprazole (PRILOSEC) 20 mg capsule Take 1 capsule by mouth daily before breakfast. 1/2 hr before meal. glipiZIDE (GLUCOTROL) 5 mg tablet Take 1 tablet by mouth two times a day before meals. levothyroxine (SYNTHROID) 75 mcg tablet Take 1 tablet by mouth once daily. FOLIC ACID ORAL Take by mouth. ferrous sulfate (IRON) 325 mg (65 mg iron) tablet Take 325 mg by mouth. nitroglycerin sublingual (NITROQUICK) 0.4 mg SL tablet Dissolve 1 tablet under the tongue every 5 minutes as needed. As directed for chest pain. IF NO RELIEF CALL 911 isosorbide mononitrate ER (IMDUR) 60 mg 24 hr tablet Take 1 tablet by mouth once daily. ELIQUIS 5 mg tab(s) Take 1 tablet by mouth two times a day. rosuvastatin (CRESTOR) 40 mg tablet Take 1 tablet by mouth daily at bedtime. lisinopril (ZESTRIL) 10 mg tablet Take 1 tablet by mouth once daily. metoprolol tartrate, short acting, (LOPRESSOR) 50 mg tablet Take 1 tablet by mouth two times a day. metFORMIN ER (GLUCOPHAGE XR) 500 mg 24 hr tablet Take 1 tablet by mouth two times a day with meals. As directed ACETAMINOPHEN/DIPHENHYDRAMINE (TYLENOL PM EXTRA STRENGTH ORAL) Take by mouth every 8 hours as needed. THERAPEUTIC MULTIVITAMIN TAB Take by mouth once daily. traMADol (ULTRAM) 50 mg tablet Take 1 tablet by mouth two times a day as needed for pain for up to 7 days. blood sugar diagnostic (BLOOD GLUCOSE TEST) test strip Test blood sugar(s) 1 time daily and as needed. Dx: Type 2 DM - Uncontrolled E11.9 Insulin: No Lancets Test blood sugar(s) 1 time daily and as needed. Dx: Type 2 DM - Uncontrolled E11.9 Insulin: No Blood Pressure Monitor (BLOOD PRESSURE KIT) 1 Each once daily as needed. cholecalciferol (VITAMIN D3) 50 mcg (2,000 unit) tablet Take 1 tablet by mouth once daily. No current facility-administered medications for this visit. ALLERGIES Allergen Reactions Ativan [Lorazepam] Other: See Comments family members had MS change Benzonatate GI Upset Hctz [Hydrochloroth* Intolerance headache Seasonal Allergies Other: See Comments Receiving allergy shots. Sulfa (Sulfonamide * Unknown ACTIVE PROBLEM LIST Cad (Coronary Artery Disease) - 07/30/2010 (B priority) Comment: Patient presents with unstable angina. However, CP is different from previous episodes of angina. First set of cardiac biomarkers is negative. ECG does not demonstrate ischemia. -heparin drip -Wean off of Nitro drip -Symptom free -Will proceed with [facility] today Mixed Hyperlipidemia - 06/15/2006 (C priority) Comment: Cont home regimen of rosuvastatin Hypothyroidism (C priority) Comment: Cont home regimen of levothyroxine Occlusion and Stenosis of Carotid Artery Without Mention of Cerebral Infarction - 01/03/2010 (D priority) Comment: 70% stenosis of rt carotid No strokes, TIAs, etc History of Left Heart Catheterization (Lhc) - 02/12/2023 Paf (Paroxysmal Atrial Fibrillation) ([facility]) - 02/12/2023 Essential (Primary) Hypertension - 03/02/2022 Pure Hypercholesterolemia - 03/02/2022 Hypertensive Kidney Disease With Stage 3a Chronic Kidney Disease ([facility]) - 09/26/2021 Thoracic Aortic Aneurysm Without Rupture - 08/26/2019 Chronic pain of left knee--since contusion - 10/06/2018 Dial's Esophagus Without Dysplasia - 09/20/2018 Comment: Added automatically from request for surgery [id number] Trigger Finger, Right Ring Finger - 08/08/2018 Comment: Added automatically from request for surgery [id number] Type 2 Diabetes Mellitus With Stage 3a Chronic Kidney Disease, Without Long-Term Current Use of Insulin ([facility]) - 10/14/2016 Stage 3a chronic kidney disease ([facility]) - 10/14/2016 Comment: In (more content not included)...[facility]06-27-2025 History of Present illness Narrative* Henrique Garcia APRN.INFORMATION CODER - 05/25/2025 9:48 AM EDT SUBJECTIVE Dolores Villa is a 79 year old female here today for acute concern. Chief Complaint Patient presents with: Fall: happened on Wednesday while climbing stairs states she hit her flank/rib area on metal handrail HPI Dolores Villa is a 79-year-old female with a history of diabetes mellitus type 2, presenting with left-sided rib pain following a fall. Dolores reports left-sided rib pain following a fall on Wednesday. She [place] [employer] when her sandal caught on the steps, causing her to fall sideways into a metal railing. She did not fall down the stairs but experienced significant pain upon impact. She sustained two small bruises and reports difficulty breathing deeply, yawning, or getting up due to pain. She is unable to move herarm backward and has not previously broken a rib. She has been taking regular strength Tylenol, which helps her sleep but does not fully alleviate the pain. She has a history of taking tramadol without issues and denies a history of seizures. Her medications were reviewed today and her list is now up to date. Medications Current Outpatient Medications Medication Sig omeprazole (PRILOSEC) 20 mg capsule Take 1 capsule by mouth daily before breakfast. 1/2 hr before meal. glipiZIDE (GLUCOTROL) 5 mg tablet Take 1 tablet by mouth two times a day before meals. levothyroxine (SYNTHROID) 75 mcg tablet Take 1 tablet by mouth once daily. FOLIC ACID ORAL Take by mouth. ferrous sulfate (IRON) 325 mg (65 mg iron) tablet Take 325 mg by mouth. nitroglycerin sublingual (NITROQUICK) 0.4 mg SL tablet Dissolve 1 tablet under the tongue every 5 minutes as needed. As directed for chest pain. IF NO RELIEF CALL 911 isosorbide mononitrate ER (IMDUR) 60 mg 24 hr tablet Take 1 tablet by mouth once daily. ELIQUIS 5 mg tab(s) Take 1 tablet by mouth two times a day. rosuvastatin (CRESTOR) 40 mg tablet Take 1 tablet by mouth daily at bedtime. lisinopril (ZESTRIL) 10 mg tablet Take 1 tablet by mouth once daily. metoprolol tartrate, short acting, (LOPRESSOR) 50 mg tablet Take 1 tablet by mouth two times a day. metFORMIN ER (GLUCOPHAGE XR) 500 mg 24 hr tablet Take 1 tablet by mouth two times a day with meals.As directed ACETAMINOPHEN/DIPHENHYDRAMINE (TYLENOL PM EXTRA STRENGTH ORAL) Take by mouth every 8 hours as needed. THERAPEUTIC MULTIVITAMIN TAB Take by mouth once daily. traMADol (ULTRAM) 50 mg tablet Take 1 tablet by mouth two times a day as needed for pain for up to 7 days. blood sugar diagnostic (BLOOD GLUCOSE TEST) test strip Test blood sugar(s) 1 time daily and as needed. Dx: Type 2 DM - Uncontrolled E11.9 Insulin: No Lancets Test blood sugar(s) 1 time daily and as needed. Dx: Type 2 DM - Uncontrolled E11.9 Insulin:No Blood Pressure Monitor (BLOOD PRESSURE KIT) 1 Each once daily as needed. cholecalciferol (VITAMIN D3) 50 mcg (2,000 unit) tablet Take 1 tablet by mouth once daily. No current facility-administered medications for this visit. ALLERGIES Allergen Reactions Ativan [Lorazepam] Other: See Comments family members had MS change Benzonatate GI Upset Hctz [Hydrochloroth* Intolerance headache Seasonal Allergies Other: See Comments Receiving allergy shots. Sulfa (Sulfonamide * Unknown ACTIVE PROBLEM LIST Cad (Coronary Artery Disease) - 07/30/2010 (B priority) Comment: Patient presents with unstable angina. However, CP is different from previous episodes of angina. First set of cardiac biomarkers is negative. ECG does not demonstrate ischemia. -heparin drip -Wean off of Nitro drip -Symptom free -Will proceed with [facility] today Mixed Hyperlipidemia - 06/15/2006 (C priority) Comment: Cont home regimen of rosuvastatin Hypothyroidism (C priority) Comment: Cont home regimen of levothyroxine Occlusion and Stenosis of Carotid Artery Without Mention of Cerebral Infarction - 01/03/2010 (D priority) Comment: 70% stenosis of rt carotid No strokes, TIAs, etc History of Left Heart Catheterization (Lhc) - 02/12/2023 Paf (Paroxysmal Atrial Fibrillation) ([facility]) - 02/12/2023 Essential (Primary) Hypertension - 03/02/2022 Pure Hypercholesterolemia - 03/02/2022 Hypertensive Kidney Disease With Stage 3a Chronic Kidney Disease ([facility]) - 09/26/2021 Thoracic Aortic Aneurysm Without Rupture - 08/26/2019 Chronic pain of left knee--since contusion - 10/06/2018 Dial's Esophagus Without Dysplasia - 09/20/2018 Comment: Added automatically from request for surgery [id number] Trigger Finger, Right Ring Finger - 08/08/2018 Comment: Added automatically from request for surgery [id number] Type 2 Diabetes Mellitus With Stage 3a Chronic Kidney Disease, Without Long-Term Current Use of Insulin ([facility]) - 10/14/2016 Stage 3a chronic kidney disease ([facility]) - 10/14/2016 Comment: In past year has had eGFR over 60; ranging 50 to over 60 History of Lumbar Laminectomy - 10/21/2015 Bulge of Lumbar Disc Without Myelopathy - 10/21/2015 Thoracic and Lumbosacral Neuritis - 02/07/2013 Trigger Ring Finger of Left Hand - 12/19/2012 Dupuytren's Contracture - 11/01/2012 Comment: left worse than right Postsurgical Percutaneous Transluminal Coronary Angioplasty Status - 02/04/2011 Presence of Stent in Coronary Artery - 01/27/2011 Diverticulitis of Colon - 08/22/2010 Gerd (Gastroesophageal Reflux Disease) - 11/13/2009 Pain in Joint, Shoulder Region - 09/17/2008 Other Hammer Toe (Acquired) - 07/23/2008 Social History Tobacco Use Smoking status: Never Passive exposure: Never Smokeless tobacco: Never Vaping Use Vaping status: Never Used Substance Use Topics Alcohol use: No Drug use: No Review of Systems Constitutional: Negative. Respiratory: Negative for cough, chest tightness, shortness of breath and wheezing. Musculoskeletal: Positive for arthralgias and myalgias. OBJECTIVE BP 124/66 Pulse 88 Resp 16 Wt 116 lb 2.9 oz (52.7kg) Physical Exam Vitals and nursing note reviewed. Constitutional: General: She is awake. She is not in acute distress. Appearance: Normal appearance. She is well-developed and well-groomed. She is not ill-appearing, toxic-appearing or diaphoretic. HENT: Head: Normocephalic. Right Ear: External ear normal. Left Ear: External ear normal. Nose: Nose normal. Eyes: General: Vision grossly intact. Conjunctiva/sclera: Conjunctivae normal. Pupils: Pupils are equal, round, and reactive to light. Neck: Vascular: No JVD. Trachea: Trachea normal. Cardiovascular: Rate and Rhythm: Normal rate and regular rhythm. Pulses: Normal pulses. Heart sounds: Normal heart sounds. No murmur heard. Pulmonary: Effort: Pulmonary effort is normal. No accessory muscle usage, prolonged expiration or respiratory distress. Breath sounds: Normal breath sounds. Chest: Chest wall: Tenderness (left lateral) present. No crepitus. Musculoskeletal: Cervical back: Neck supple. Skin: General: Skin is warm and dry. Capillary Refill: Capillary refill takes less than 2 seconds. Neurological: General: No focal deficit present. Mental Status: She is alert and oriented to person, place, and time. Mental status is at baseline. Psychiatric: Attention and Perception: Attention and perception normal. Mood and Affect: Mood and affect normal. Speech: Speech normal. Behavior: Behavior normal. Behavior is cooperative. Thought Content: Thought content normal. Cognition and Memory: Cognition and memory normal. Judgment: Judgment normal. ASSESSMENT/PLAN: 1. Fall, initial encounter (W19.XXXA) Rib pain on left side (R07.81) Left flank pain (R10.9) Patient experienced a fall on Wednesday, impacting the left side against a metal railing. Presents with rib and flank pain exacerbated by deep breathing, yawning, and arm movement. Physical examination reveals tenderness along the lower ribs and a small bruise under the bra line. No rib movement detected on palpation. - Ordered chest X-ray to evaluate for rib fractures. - Prescribed Tramadol for pain management, to be used as needed. - Advised use of splinting techniques during coughing or sneezing to minimize pain. - Educated on the importance of deep breathing exercises a few times daily to reduce the risk of pneumonia. - Monitor oxygen saturation levels at home, ensuring they remain above 90%. - Follow-up after X-ray results to determine further management if necessary. Discussed with patient that although Ultram/tramadol is not a narcotic it does carry the risk of addiction if taken over a long period of time. [place] report reviewed and prescription is reasonable. Discussed that in addition this medicine can lower the seizure threshold and if patient had any history of seizures or seizure like activity which was not shared with provider today, they should not take this medicine. While taking ultram/tramadol patient was instructed to not drive or operate or be in vicinity of heavy machinery. PDMP website checked and validated. All prescriptions have been APPROPRIATELY filled. No suspiciousactivity was identified. 05/25/2025 by Henrique Garcia APRN.AARON Recording using [employer] software for draft documentation of the visit was discussed with the patient/authorized financial service representative; all questions welcomed and answered. Patient/authorized financial service representative agreed to proceed Portions of this note have been entered by ancillary staff. I have reviewed and when necessary edited, so that they are an adequate record of my encounter with this patient Please note that parts of this document were created using voice recognition software and therefore may contain grammatical errors. Patient verbalizes understanding of instructions from today's visit and in agreement with treatmentplan. Questions answered. Agrees to call the office if questions, concerns of issues with acute symptoms not improving or if they worsen. See diagnoses and orders for additional plan(s). Allergies and medications were reviewed, list was updated, and refills given if needed. Past medical, surgical, social, and family history reviewed and updated as appropriate. Encouraged proper diet & exercise as well as compliance with taking medications. Age- appropriate health preventative measures were discussed. Return if symptoms worsen or fail to improve, for Keep next scheduled appointment.. Henrique Garcia APRN-AARON documented in this encounterGen[facility]06-27-[facility] Telephone encounter Note * Telephone Encounter - Bridgette Morton RN - 05/25/2025 9:20 AM EDT Protocol recommends see provider within 4 hours. Pt booked for an appt with Henrique Garcia at 1000 today. Reason for Disposition Patient has a concerning injury to a specific part of the body (e.g., chest, leg, head) [1] SEVERE pain (e.g., excruciating) AND [2] not improved 2 hours after pain medicine/ice packs Answer Assessment - Initial Assessment Questions 1. MECHANISM:Pt was [place] [employer] this past [place]. States her arms were full and steps were grated and her sandal caught and she fell sideways hitting the metal railing. Denies hitting her head. 2. DOMESTIC VIOLENCE AND ELDER ABUSE SCREENING: n/a 3. ONSET: 5 days ago 4. LOCATION: her left side towards her back hit the metal railing 5. INJURY:yes. Pt states ever since then, she has had pain around a 4-area very sore and bruised. When getting up, taking a deep breath or yawning, pt gets more severe pain 8/10 that shoots in her back. Pt wondering if she broke any ribs. 6. PAIN:see above. Moderate 4-8/10 - NONE (0): No pain. - MILD (1-3): Doesn't interfere with normal activities. - MODERATE (4-7): Interferes with normal activities or awakens from sleep. - SEVERE (8-10): Excruciating pain, unable to do any normal activities. 7. SIZE: states has 2 bruises between the size of a golf ball and a tennis ball. 8. : n/a 9. OTHER SYMPTOMS: denies any dizziness or lightheadedness. Denies that the pain is getting more significant. 10. CAUSE: her sandal caught in the grate on the steps. Answer Assessment - Initial Assessment Questions 1. MECHANISM:see other note 2. ONSET: 5 days ago 3. LOCATION: left mid back 4. SEVERITY: can move but gets severe pain with movement and taking a deep breath 5. PAIN: see other note 4-810 - NONE (0): No pain. - MILD (1-3): Doesn't interfere with normal activities. - MODERATE (4-7): Interferes with normal activities or awakens from sleep. - SEVERE (8-10): Excruciating pain, unable to do any normal activities. 6. SIZE: see other note 7. TETANUS: n/a 8. NEUROLOGIC SYMPTOMS: n/a 9. OTHER SYMPTOMS: n/a 10. : n/a Protocols used: Falls and [id number], Back [id number] [facility]06-27-[facility] Miscellaneous Notes* Telephone Encounter - Bridgette Morton RN - 05/25/2025 9:20 AM EDT Protocol recommends see provider within 4 hours. Pt booked for an appt with Henrique Garcia at 1000 today. Reason for Disposition Patient has a concerning injury to a specific part of the body (e.g., chest, leg, head) [1] SEVERE pain (e.g., excruciating) AND [2] not improved 2 hours after pain medicine/ice packs Answer Assessment - Initial Assessment Questions 1. MECHANISM:Pt was walking [place] [employer] this past [place]. States her arms were full and steps were grated and her sandal caught and she fell sideways hitting the metal railing. Denies hitting her head. 2. DOMESTIC VIOLENCE AND ELDER ABUSE SCREENING: n/a 3. ONSET: 5 days ago 4. LOCATION: her left side towards her back hit the metal railing 5. INJURY:yes. Pt states ever since then, she has had pain around a 4-area very sore and bruised. When getting up, taking a deep breath or yawning, pt gets more severe pain 8/10 that shoots in her back. Pt wondering if she broke any ribs. 6. PAIN:see above. Moderate 4-8/10 - NONE (0): No pain. - MILD (1-3): Doesn't interfere with normal activities. - MODERATE (4-7): Interferes with normal activities or awakens from sleep. - SEVERE (8-10): Excruciating pain, unable to do any normal activities. 7. SIZE: states has 2 bruises between the size of a golf ball and a tennis ball. 8. : n/a 9. OTHER SYMPTOMS: denies any dizziness or lightheadedness. Denies that the pain is getting more significant. 10. CAUSE: her sandal caught in the grate on the steps. Answer Assessment - Initial Assessment Questions 1. MECHANISM:see other note 2. ONSET: 5 days ago 3. LOCATION: left mid back 4. SEVERITY: can move but gets severe pain with movement and taking a deep breath 5. PAIN: see other note 4-8/10 - NONE (0): No pain. - MILD (1-3): Doesn't interfere with normal activities. - MODERATE (4-7): Interferes with normal activities or awakens from sleep. - SEVERE (8-10): Excruciating pain, unable to do any normal activities. 6. SIZE: see other note 7. TETANUS: n/a 8. NEUROLOGIC SYMPTOMS: n/a 9. OTHER SYMPTOMS: n/a 10. : n/a Protocols used: Falls and Urvdlzc-[id number]-UM, Back Xhpmhr-CSDLZ-AM [facility] Telephone encounter Note * Telephone Encounter - Jennifer Singh LPN - 04/30/2025 10:47 AM EDT Patient is needing RX to go to mail order pharmacy. Patient has been identified by name and date of : Yes Patient phones for refill(s): Requested Prescriptions Pending Prescriptions Disp Refills blood sugar diagnostic (BLOOD GLUCOSE TEST) test strip 90 strip 3 Sig: Test blood sugar(s) 1 time daily and as needed. Dx: Type 2 DM - Uncontrolled E11.9 Insulin: No Date of last office visit in primary care: 12/18/2024 Date of next office visit in primary care: 06/20/2025 Please advise. Thank you. Jennifer Singh LPN. [facility]06-[facility] Miscellaneous Notes* Telephone Encounter - Jennifer Singh LPN - 04/30/2025 10:47 AM EDT Patient is needing RX to go to mail order pharmacy. Patient has been identified by name and date of : Yes Patient phones for refill(s): Requested Prescriptions Pending Prescriptions Disp Refills blood sugar diagnostic (BLOOD GLUCOSE TEST) test strip 90 strip 3 Sig: Test blood sugar(s) 1 time daily and as needed. Dx: Type 2 DM - Uncontrolled E11.9 Insulin: No Date of last office visit in primary care: 12/18/2024 Date of next office visit in primary care: 06/20/2025 Please advise. Thank you. Jennifer Singh LPN. * Telephone Encounter - Mesha Villanueva - 04/30/2025 8:18 AM EDT Prescription Refill Information The patient has been identified by name and date of : Yes Caregiver verified no other encounters exist for this prescription request: Yes Caregiver confirmed with patient/requestor that no other refills are due, in the near future, with this provider at this time: Yes The last office visit in the department: 06-14-24 Does the patient have a future office visit with this provider/department: Yes Requested Prescriptions Pending Prescriptions Disp Refills blood sugar diagnostic (BLOOD GLUCOSE TEST) test strip 50 strip 11 Sig: Test blood sugar(s) 1 time daily and as needed. Dx: Type 2 DM - Uncontrolled E11.9 Insulin: No Mesha Villanueva April 30, 2025 8:19 AM documented in [facility]Gen[facility]06-[facility] Telephone encounter Note * Telephone Encounter - Mesha Villanueva - 04/30/2025 8:18 AM EDT Prescription Refill Information The patient has been identified by name and date of : Yes Caregiver verified no other encounters exist for this prescription request: Yes Caregiver confirmed with patient/requestor that no other refills are due, in the near future, with this provider at this time: Yes The last office visit in the department: 06-14-24 Does the patient have a future office visit with this provider/department: Yes Requested Prescriptions Pending Prescriptions Disp Refills blood sugar diagnostic (BLOOD GLUCOSE TEST) test strip 50 strip 11 Sig: Test blood sugar(s) 1 time daily and as needed. Dx: Type 2 DM - Uncontrolled E11.9 Insulin: No Mesha Villanueva April 30, 2025 8:19 AM [facility]-14[facility] Telephone encounter Note* Telephone Encounter - Tenisha Gamble LPN - 04/11/2025 8:27 AM EDT Spoke with patient no she was unable to get letter yesterday.. Letter printed and signed. Letter ready for miner pick in main lobby. Patient to miner pick afternoon. [facility]-14[facility] Miscellaneous Notes* Telephone Encounter - Tenisha Gamble LPN - 04/11/2025 8:27 AM EDT Spoke with patient no she was unable to get letter yesterday.. Letter printed and signed. Letter ready for miner pick in main lobby. Patient to miner pick afternoon. * Telephone Encounter - Matthew Spencer MD - 04/10/2025 4:42 PM EDT I assume was not printed for me to sign and printed now * Telephone Encounter - Jennifer Singh LPN - 04/10/2025 2:37 PM EDT Please review/print letter and notify Patient when ready. Jennifer Singh LPN * Telephone Encounter - Krysta Gonzales RN - 04/10/2025 2:27 PM EDT Pt returned call and given provider's message below with verbalized understanding. Pt agreeable to the letter, and states she will be right over and stop at the front desk coordinator to pick itup. Pt will ask front desk coordinator to print it off for her. * Telephone Encounter - Tensiha Gamble LPN - 04/09/2025 10:33 AM EDT LEFT MESSAGE FOR PATIENT TO CALL OFFICE. * Telephone Encounter - Matthew Spencer MD - 04/08/2025 11:25 PM EDT See if letter as pended for acceptable weight 115 +/- 5 pounds okay. Can change if needs to be listed differently for [facility]. Print letter if okay for her. Would not want her dropping much more weight. She should try to get more calories in even if not hungry in order to maintain weight. * Telephone Encounter - Luda Cuevas LPN - 04/03/2025 4:37 PM EDT Pt calls to report Dr. Capellan prescribed her Farxiga. Pt reports she is down to 113 lbs. Pt is asking pcp since she is in [facility] and her goal is supposed to be [address] could lower her goal. Pt reports she would need a letter stating she is on medication that causes her to lose weight. Advised pt to call Dr. Capellan's office tomorrow and also let them know that she is continuing to lose weight on Farxiga. Please review and advise. Luda Cuevas LPN documented in this encounterGen[facility]05-13-2025 Telephone encounter Note * Telephone Encounter - Matthew Spencer MD - 04/10/2025 4:42 PM EDT I assume was not printed for me to sign and printed now [facility] Telephone encounter Note* Telephone Encounter - Jennifer Singh LPN - 04/10/2025 2:37 PM EDT Please review/print letter and notify Patient when ready. Jennifer Singh LPN [facility] Telephone encounter Note* Telephone Encounter - Krysta Gonzales RN - 04/10/2025 2:27 PM EDT Pt returned call and given provider's message below with verbalized understanding. Pt agreeable to the letter, and states she will be right over and stop at the front desk coordinator to pick itup. Pt will ask front desk coordinator to print it off for her. [facility]-12[facility] Telephone encounter Note* Telephone Encounter - Tenisha Gamble LPN - 04/09/2025 10:33 AM EDT LEFT MESSAGE FOR PATIENT TO CALL OFFICE. [facility] Telephone encounter Note* Telephone Encounter - Matthew Spencer MD - 04/08/2025 11:25 PM EDT See if letter as pended for acceptable weight 115 +/- 5 pounds okay. Can change if needs to be listed differently for [facility]. Print letter if okay for her. Would not want her dropping much more weight. She should try to get more calories in even if not hungry in order to maintain weight. [facility] Telephone encounter Note* Telephone Encounter - Luda Cuevas LPN - 04/03/2025 4:37 PM EDT Pt calls to report Dr. Capellan prescribed her Farxiga. Pt reports she is down to 113 lbs. Pt is asking pcp since she is in [facility] and her goal is supposed to be [address] could lower her goal. Pt reports she would need a letter stating she is on medication that causes her to lose weight. Advised pt to call Dr. Capellan's office tomorrow and also let them know that she is continuing to lose weight on Farxiga. Please review and advise. Luda Cuevas LPN [facility]-10[facility] Telephone encounter Note* Telephone Encounter - Matthew Spencer MD - 03/08/2025 8:30 PM EDT The following approved medication requests have been transmitted electronically. Requested Prescriptions Signed Prescriptions Disp Refills omeprazole (PRILOSEC) 20 mg capsule 90 capsule 3 Sig: Take 1 capsule by mouth daily before breakfast. 1/2 hr before meal. Authorizing Provider: MATTHEW SPENCER glipiZIDE (GLUCOTROL) 5 mg tablet 180 tablet 3 Sig: Take 1 tablet by mouth two times a day before meals. Authorizing Provider: MATTHEW SPENCER MD [facility]04-10-[facility] Miscellaneous Notes* Telephone Encounter - Matthew Spencer MD - 03/08/2025 8:30 PM EDT The following approved medication requests have been transmitted electronically. Requested Prescriptions Signed Prescriptions Disp Refills omeprazole (PRILOSEC) 20 mg capsule 90 capsule 3 Sig: Take 1 capsule by mouth daily before breakfast. 1/2 hr before meal. Authorizing Provider: MATTHEW SPENCER glipiZIDE (GLUCOTROL) 5 mg tablet 180 tablet 3 Sig: Take 1 tablet by mouth two times a day before meals. Authorizing Provider: MATTHEW SPENCER MD * Telephone Encounter - Debbie Hobson LPN - 03/08/2025 4:48 PM EDT Pt has refilled last refill for the glipizide. She will need new one for next refill. * Telephone Encounter - Divya Delgado - 03/08/2025 4:14 PM EDT Prescription Refill Information The patient has been identified by name and date of : Yes Caregiver verified no other encounters exist for this prescription request: Yes Caregiver confirmed with patient/requestor that no other refills are due, in the near future, with this provider at this time: Yes The last office visit in the department: 12/18/24 Does the patient have a future office visit with this provider/department: Yes Requested Prescriptions Pending Prescriptions Disp Refills omeprazole (PRILOSEC) 20 mg capsule 90 capsule 3 Sig: Take 1 capsule by mouth daily before breakfast. 1/2 hr before meal. glipiZIDE (GLUCOTROL) 5 mg tablet 180 tablet 3 Sig: Take 1 tablet by mouth two times a day before meals. Divya Delgado March 08, 2025 4:15 PM documented in this encounterGen[facility] Hospital04-10-2025 Telephone encounter Note * Telephone Encounter - Debbie Hobson LPN - 03/08/2025 4:48 PM EDT Pt has refilled last refill for the glipizide. She will need new one for next refill. [facility] Telephone encounter Note* Telephone Encounter - Divya Delgado - 03/08/2025 4:14 PM EDT Prescription Refill Information The patient has been identified by name and date of : Yes Caregiver verified no other encounters exist for this prescription request: Yes Caregiver confirmed with patient/requestor that no other refills are due, in the near future, with this provider at this time: Yes The last office visit in the department: 12/18/24 Does the patient have a future office visit with this provider/department: Yes Requested Prescriptions Pending Prescriptions Disp Refills omeprazole (PRILOSEC) 20 mg capsule 90 capsule 3 Sig: Take 1 capsule by mouth daily before breakfast. 1/2 hr before meal. glipiZIDE (GLUCOTROL) 5 mg tablet 180 tablet 3 Sig: Take 1 tablet by mouth two times a day before meals. Divya Delgado March 08, 2025 4:15 PM [facility]-22[facility] Telephone encounter Note* Telephone Encounter - Bia Zapata - 02/17/2025 9:33 AM EDT Patient has been identified by name and date of : Yes Last office visit in this department: 12/18/2024 RX INSTRUCTIONS: Patient aware RX will be sent to pharmacy. No need to notify patient. Patient phones requesting refills as follows: Requested Prescriptions Pending Prescriptions Disp Refills Lancets 100 Each 11 Sig: Test blood sugar(s) 1 time daily and as needed. Dx: Type 2 DM - Uncontrolled E11.9 Insulin: No blood sugar diagnostic (BLOOD GLUCOSE TEST) test strip 50 Strip 11 Sig: Test blood sugar(s) 1 time daily and as needed. Dx: Type 2 DM - Uncontrolled E11.9 Insulin: No Please review and advise. Bia Peñaloza [facility]03-22-2025 Miscellaneous Notes* Telephone Encounter - Bia Zapata - 02/17/2025 9:33 AM EDT Patient has been identified by name and date of : Yes Last office visit in this department: 12/18/2024 RX INSTRUCTIONS: Patient aware RX will be sent to pharmacy. No need to notify patient. Patient phones requesting refills as follows: Requested Prescriptions Pending Prescriptions Disp Refills Lancets 100 Each 11 Sig: Test blood sugar(s) 1 time daily and as needed. Dx: Type 2 DM - Uncontrolled E11.9 Insulin: No blood sugar diagnostic (BLOOD GLUCOSE TEST) test strip 50 Strip 11 Sig: Test blood sugar(s) 1 time daily and as needed. Dx: Type 2 DM - Uncontrolled E11.9 Insulin: No Please review and advise. Bia Peñaloza documented in this encounterGen[facility] Hospital03-13-2025 Progress note* Result Encounter Note - Dipika Hernandez APRN.CNS - 02/08/2025 8:08 AM EDT Lipids in acceptable range [facility]03-13[facility] Miscellaneous Notes* Result Encounter Note - Dipika Hernandez APRN.CNS - 02/08/2025 8:08 AM EDT Lipids in acceptable range documented in this encounterGenesis Hospital03-10-2025 Telephone encounter Note * Telephone Encounter - Bia Christina MA - 02/05/2025 3:15 PM EDT Patient given results and verbalized understanding of instructions given. Bia Christina MA [facility]03-10-2025 Miscellaneous Notes* Telephone Encounter - Bia Christina MA - 02/05/2025 3:15 PM EDT Patient given results and verbalized understanding of instructions given. Bia Christina MA * Telephone Encounter - Rosaura Monk APRN.CNP - 02/05/2025 2:47 PM EDT Please call and let them know that x-ray was negative. Continue care plan as discussed yesterday. documented in this encounterGen[facility] Hospital03-10-2025 Telephone encounter Note * Telephone Encounter - Rosaura Monk APRN.CNP - 02/05/2025 2:47 PM EDT Please call and let them know that x-ray was negative. Continue care plan as discussed yesterday. [facility]03-10[facility] History of Present illness Narrative* Niall De Los Santos RT(Rain) - 02/05/2025 12:20 PM EDT Radiology Service Progress Note PATIENT NAME: Dolores Villa DATE OF SERVICE: February 05, 2025 TIME: 12:17 PM PATIENT IDENTITY VERIFICATION COMPLETED USING TWO (2) IDENTIFIERS: Name and Date of confirmedby patient verbally. FALL SCREENING: Has the patient had 2 falls in the last year or 1 fall with injury or currently using an Ambulatory Assistive Device (Walker, Cane, Wheelchair, Crutches, etc.)? No PATIENT GENDER DATA: Assigned female at . status: : No status:NO. PATIENT RELEVANT IMPLANT DATA REVIEWED: Yes PATIENT PRESENTS WITH AN IMPLANTABLE OR ATTACHED INFORMATION CODER: No RADIOLOGY DEPARTMENT: General X-ray: Exam(s) Completed: Chest X-Ray PERIPHERAL IV DATA: Not applicable SIGNED BY: RT Julita(R) February 05, 2025 12:17 PM documented in this encounterGenesis Hospital03-10-2025 NoteHNO ID: [id number] Author: NIALL DE LOS SANTOS RT(Rain) Service: ? Author Type: [employer] Spray Supervisor Type: Progress Notes Filed: 02/05/2025 12:25 Note Text: Radiology Service Progress Note PATIENT NAME: Dolores Villa DATE OF SERVICE: February 05, 2025 TIME: 12:17 PM PATIENT IDENTITY VERIFICATION COMPLETED USING TWO (2) IDENTIFIERS: Name and Date of confirmed by patient verbally. FALL SCREENING: Has the patient had 2 falls in the last year or 1 fall with injury or currently using an Ambulatory Assistive Device (Walker, Cane, Wheelchair, Crutches, etc.)? No PATIENT GENDER DATA: Assigned female at . status: : No status: NO. PATIENT RELEVANT IMPLANT DATA REVIEWED: Yes PATIENT PRESENTS WITH AN IMPLANTABLE OR ATTACHED INFORMATION CODER: No RADIOLOGY DEPARTMENT: General X-ray: Exam(s) Completed: Chest X-Ray PERIPHERAL IV DATA: Not applicable SIGNED BY: RT Julita(R) February 05, 2025 12:17 [facility]03-09-2025 NoteHNO ID: [id number] Author: ROSAURA MONK APRN.INFORMATION CODER Service: ? Author Type: Nurse Practitioner Type: Progress Notes Filed: 02/04/2025 13:58 Note Text: [facility] Subjective Dolores Villa is a 79 year old female. No chief complaint on file. Patient came in with complaints of having a productive cough sinus pressure and congestion. Patient says it has been going on about 3 weeks. Patient says is not getting any better. Patient does deny any shortness of breath. Patient denies any other symptoms. The history is provided by the patient. No speech language therapist was used. Review of Systems Constitutional: Negative. Objective There were no vitals taken for this visit. Physical Exam Constitutional: Appearance: Normal appearance. HENT: Right Ear: Tympanic membrane, ear canal and external ear normal. Left Ear: Tympanic membrane, ear canal and external ear normal. Mouth/Throat: Mouth: Mucous membranes are moist. Pharynx: Oropharynx is clear. No posterior oropharyngeal erythema. Eyes: Pupils: Pupils are equal, round, and reactive to light. Cardiovascular: Rate and Rhythm: Normal rate and regular rhythm. Heart sounds: Normal heart sounds. Pulmonary: Effort: Pulmonary effort is normal. Breath sounds: Normal breath sounds. Neurological: Mental Status: She is alert. PAST MEDICAL HISTORY Diagnosis Date Abdominal pain, left lower quadrant Abdominal pain, unspecified site 08/22/2010 Arthritis 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 09/20/2018 Added automatically from request for surgery [id number] Barretts esophagus EGD 2010 and 08/25/13 Bronchitis 07/30/2010 Pt was having cough with chest pain . -Was started on nebulisation and antibiotic at [facility]. -Symtoms better now. CAD (coronary artery disease) s/p PCI/CHRISTELLE to LAD with 2.75x15 Xience dilated to 3.4 Complication of anesthesia nausea, vomiting Controlled type 2 diabetes mellitus without complication, without long-term current use of insulin ([facility]) 10/14/2016 Contusion of shoulder region Diverticulitis of sigmoid colon 09/17/2010 Dupuytren's contracture 11/01/2012 left worse than right Enlargement of lymph nodes Esophageal reflux Esophagitis, unspecified 04/03/2011 Generalized osteoarthrosis, unspecified site History of colonic polyps 09/20/2018 Added automatically from request for surgery [id number] Hypertension Kidney disease Lichen sclerosus Migraine 08/23/2009 Migraine without aura, without mention of intractable migraine without mention of status migrainosus Pain in joint, shoulder region PONV (postoperative nausea and vomiting) Pure hypercholesterolemia Sciatica 10/09/2010 Sebaceous cyst 05/01/2015 Subacute thyroiditis Thoracic aortic aneurysm without rupture ([facility]) 08/26/2019 Trigger thumb of left hand 08/12/2017 Added automatically from request for surgery [id number] Surgery effective Unspecified hypothyroidism PAST SURGICAL HISTORY Procedure Laterality Date BIOPSY BREAST OPEN INCISIONAL 75 Bx of breast, incisional- bilateral CATARACT EXTRACTION HX 2013 COLON SURGERY HX COLONOSCOPY FLX DX W/COLLJ SPEC WHEN PFRMD 03/2004 Colonoscopy COLONOSCOPY FLX DX W/COLLJ SPEC WHEN PFRMD 10/12/2018 Colonoscopy EGD TRANSORAL BIOPSY SINGLE/MULTIPLE 04/03/11 ESOPHAGOGASTRODUODENOSCOPY TRANSORAL DIAGNOSTIC 10/12/2018 EGD EYE SURGERY HX Bilateral cataract surgery/ INCISE FINGER TENDON SHEATH Right 08/22/2018 Right ring trigger finger release INCISE FINGER TENDON SHEATH Left 03/16/2019 Left middle trigger finger release INCISE FINGER TENDON SHEATH Right 01/05/2020 Right middle trigger finger release INCISE FINGER TENDON SHEATH Right 09/05/2020 Right 5th trigger finger release LAMINECTOMY W/O FFD 1/2 VERT SEG LUMBAR 07/18/2018 revision of L4-L5 LAMINECTOMY,LUMBAR October 04, 2015 Surgical Procedure/Date: lumbar laminectomy L4-5/October 04, 2015 LUMPECTOMY/RADIOTHERAPY DIAG MAMM/A10 1974 right NEUROPLASTY AND/TRANSPOS MEDIAN NRV CARPAL TUNNE Left 09/14/2019 Left Carpal tunnel relese PAST SURGICAL HISTORY OF 2006 left 2nd finger cyst removed PAST SURGICAL HISTORY OF cyst from face PAST SURGICAL HISTORY OF 08/22/2008 left 5th toe repair hammertoe 4th and 5th PAST SURGICAL HISTORY OF 01/30/11 s/p PCI/CHRISTELLE to LAD with 2.75x15 Xience dilated to 3.4 PAST SURGICAL HISTORY OF 2010 partial colectomy 8 in, for diverticulitis PAST SURGICAL HISTORY OF remote right foot infection, ingrwn toenail PAST SURGICAL HISTORY OF 10/06/2013 left hand 4th digit trigger release REM LESIO TRUNK,ARM,LEG 1.1 -2.0CM 05/30/15 Exc. upper mid back David cyst TONSILLECTOMY PRIMARY/SECONDARY Tonsillectomy VAGINAL HYSTERECTOMY VAGINAL HYSTERECTOMY UTERUS 250 GM/< 1985 uterus ALLERGIES Ativan [Lorazepam], Benzonatate, Hctz [Hydrochlorothiazide], Seasonal Allergies, and Sulfa (Sulfonamide Antibiotics) MEDICATIONS levothyroxine (SYNTHROID) 75 mcg tablet Take 1 tablet (more content not included)...[facility]03-09-2025 History of Present illness Narrative* Rosaura Monk APRN.INFORMATION CODER - 02/04/2025 1:46 PM EDT [facility] Subjective Dolores Villa is a 79 year old female. No chief complaint on file. Patient came in with complaints of having a productive cough sinus pressure and congestion. Patientsays it has been going on about 3 weeks. Patient says is not getting any better. Patient does deny any shortness of breath. Patient denies any other symptoms. The history is provided by the patient. No speech language therapist was used. Review of Systems Constitutional: Negative. Objective There were no vitals taken for this visit. Physical Exam Constitutional: Appearance: Normal appearance. HENT: Right Ear: Tympanic membrane, ear canal and external ear normal. Left Ear: Tympanic membrane, ear canal and external ear normal. Mouth/Throat: Mouth: Mucous membranes are moist. Pharynx: Oropharynx is clear. No posterior oropharyngeal erythema. Eyes: Pupils: Pupils are equal, round, and reactive to light. Cardiovascular: Rate and Rhythm: Normal rate and regular rhythm. Heart sounds: Normal heart sounds. Pulmonary: Effort: Pulmonary effort is normal. Breath sounds: Normal breath sounds. Neurological: Mental Status: She is alert. PAST MEDICAL HISTORY Diagnosis Date Abdominal pain, left lower quadrant Abdominal pain, unspecified site 08/22/2010 Arthritis 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 09/20/2018 Added automatically from request for surgery [id number] Barretts esophagus EGD 2010 and 08/25/13 Bronchitis 07/30/2010 Pt was having cough with chest pain . -Was started on [facility]bulisation and antibiotic at [facility]. -Symtoms better now. CAD (coronary artery disease) s/p PCI/CHRISTELLE to LAD with 2.75x15 Xience dilated to 3.4 Complication of anesthesia nausea, vomiting Controlled type 2 diabetes mellitus without complication, without long-term current use of insulin ([facility]) 10/14/2016 Contusion of shoulder region Diverticulitis of sigmoid colon 09/17/2010 Dupuytren's contracture 11/01/2012 left worse than right Enlargement of lymph nodes Esophageal reflux Esophagitis, unspecified 04/03/2011 Generalized osteoarthrosis, unspecified site History of colonic polyps 09/20/2018 Added automatically from request for surgery [id number] Hypertension Kidney disease Lichen sclerosus Migraine 08/23/2009 Migraine without aura, without mention of intractable migraine without mention of status migrainosus Pain in joint, shoulder region PONV (postoperative nausea and vomiting) Pure hypercholesterolemia Sciatica 10/09/2010 Sebaceous cyst 05/01/2015 Subacute thyroiditis Thoracic aortic aneurysm without rupture ([facility]) 08/26/2019 Trigger thumb of left hand 08/12/2017 Added automatically from request for surgery [id number] Surgery effective Unspecified hypothyroidism PAST SURGICAL HISTORY Procedure Laterality Date BIOPSY BREAST OPEN INCISIONAL 75 Bx of breast, incisional- bilateral CATARACT EXTRACTION HX 2013 COLON SURGERY HX COLONOSCOPY FLX DX W/COLLJ SPEC WHEN PFRMD 03/2004 Colonoscopy COLONOSCOPY FLX DX W/COLLJ SPEC WHEN PFRMD 10/12/2018 Colonoscopy EGD TRANSORAL BIOPSY SINGLE/MULTIPLE 04/03/11 ESOPHAGOGASTRODUODENOSCOPY TRANSORAL DIAGNOSTIC 10/12/2018 EGD EYE SURGERY HX Bilateral cataract surgery/ INCISE FINGER TENDON SHEATH Right 08/22/2018 Right ring trigger finger release INCISE FINGER TENDON SHEATH Left 03/16/2019 Left middle trigger finger release INCISE FINGER TENDON SHEATH Right 01/05/2020 Right middle trigger finger release INCISE FINGER TENDON SHEATH Right 09/05/2020 Right 5th trigger finger release LAMINECTOMY W/O FFD 1/2 VERT SEG LUMBAR 07/18/2018 revision of L4-L5 LAMINECTOMY,LUMBAR October 04, 2015 Surgical Procedure/Date: lumbar laminectomy L4-5/October 04, 2015 LUMPECTOMY/RADIOTHERAPY DIAG MAMM/A10 1974 right NEUROPLASTY &/TRANSPOS MEDIAN NRV CARPAL TUNNE Left 09/14/2019 Left Carpal tunnel relese PAST SURGICAL HISTORY OF 2006 left 2nd finger cyst removed PAST SURGICAL HISTORY OF cyst from face PAST SURGICAL HISTORY OF 08/22/2008 left 5th toe repair hammertoe 4th and 5th PAST SURGICAL HISTORY OF 01/30/11 s/p PCI/CHRISTELLE to LAD with 2.75x15 Xience dilated to 3.4 PAST SURGICAL HISTORY OF 2010 partial colectomy 8 in, for diverticulitis PAST SURGICAL HISTORY OF remote right foot infection, ingrwn toenail PAST SURGICAL HISTORY OF 10/06/2013 left hand 4th digit trigger release REM LESIO TRUNK,ARM,LEG 1.1 -2.0CM 05/30/15 Exc. upper mid back David cyst TONSILLECTOMY PRIMARY/SECONDARY <AGE 12 Tonsillectomy VAGINAL HYSTERECTOMY VAGINAL HYSTERECTOMY UTERUS 250 GM/< 1985 uterus ALLERGIES Ativan [Lorazepam], Benzonatate, Hctz [Hydrochlorothiazide], Seasonal Allergies, and Sulfa (Sulfonamide Antibiotics) MEDICATIONS levothyroxine (SYNTHROID) 75 mcg tablet Take 1 tablet by mouth once daily. FOLIC ACID ORAL Take by mouth. ferrous sulfate (IRON) 325 mg (65 mg iron) tablet Take 325 mg by mouth. nitroglycerin sublingual (NITROQUICK) 0.4 mg SL tablet Dissolve 1 tablet under the tongue every 5 minutes as needed. As directed for chest pain. IF NO RELIEF CALL 911 isosorbide mononitrate ER (IMDUR) 60 mg 24 hr tablet Take 1 tablet by mouth once daily. ELIQUIS 5 mg tab(s) Take 1 tablet by mouth two times a day. rosuvastatin (CRESTOR) 40 mg tablet Take 1 tablet by mouth daily at bedtime. lisinopril (ZESTRIL) 10 mg tablet Take 1 tablet by mouth once daily. glipiZIDE (GLUCOTROL) 5 mg tablet Take 1 tablet (5 mg) by mouth two times a day before meals. metoprolol tartrate, short acting, (LOPRESSOR) 50 mg tablet Take 1 tablet by mouth two times a day. blood sugar diagnostic (BLOOD GLUCOSE TEST) test strip Test blood sugar(s) 1 time daily and as needed. Dx: Type 2 DM - Uncontrolled E11.9 Insulin: No Blood Pressure Monitor (BLOOD PRESSURE KIT) 1 Each once daily as needed. metFORMIN ER (GLUCOPHAGE XR) 500 mg 24 hr tablet Take 1 tablet by mouth two times a day with meals.As directed omeprazole (PRILOSEC) 20 mg capsule Take 1 capsule by mouth daily before breakfast. 1/2 hr before meal. Lancets lancets Test blood sugar(s) 1 time daily and as needed. Dx: Type 2 DM - Uncontrolled E11.9 Insulin: No ACETAMINOPHEN/DIPHENHYDRAMINE (TYLENOL PM EXTRA STRENGTH ORAL) Take by mouth every 8 hours as needed. THERAPEUTIC MULTIVITAMIN TAB Take by mouth once daily. doxycycline (VIBRA-TABS) 100 mg tablet Take 1 tablet by mouth two times a day for 7 days. amoxicillin (AMOXIL) 500 mg capsule Take by mouth. Take four tablets by mouth one hour prior to dental procedure (Patient not taking: Reported on 11/18/2024) cholecalciferol (VITAMIN D3) 50 mcg (2,000 unit) tablet Take 1 tablet by mouth once daily. FAMILY HISTORY Problem Relation Age of Onset Heart Mother Stroke Mother Hypertension Mother Hypertension Father Heart Father Stroke Father Allergies Sister Diabetes Sister Hypertension Sister Social History Tobacco Use Smoking status: Never Passive exposure: Never Smokeless tobacco: Never Vaping Use Vaping status: Never Used Substance Use Topics Alcohol use: No Drug use: No ASSESSMENT/PLAN: 1. Rhinosinusitis - ICD9: 473.9, ICD10: J32.9 (primary diagnosis) - Will begin treatment with as per antibiotic as written, see orders - Supportive care with plenty of fluids, rest, and analgesia prn. - DOXYCYCLINE HYCLATE 100 MG TABLET 2. Acute cough - ICD9: 786.2, ICD10: R05.1 - XR CHEST 2V FRONTAL/LAT X-ray was not available at the time. Patient will come in Wednesday and get an x- ray. If x-ray is positive for pneumonia please add a second antibiotic. Treating due to duration of symptoms and x-ray also due to duration of symptoms. Rosaura Monk APRN.AARON Differential Diagnoses - sinus infection, pneumonia is more likely for the following reason(s): suggested by H&P - strep, viral uri is less likely for the following reason(s): H&P not suggestive Disposition The patient was discharged. Procedures [facility] Evaluation note* Diagnosis Onset Date Resolution Status Admit Date Cardiomyopathy chronic December 302024 10:43am Coronary artery disease chronic F ebruary 2024 10:43am Essential hypertension chronic Fe bru2024 10:43am Longstanding persistent atri al fibrillation chronic January 09, 2 025 10:43am Mitral valve regurgitation chronic January 09, 2025 10:43am Presence of stent in coronar y artery January, chronic January 09, 2 025 10:43am Pure hypercholesterolemia chronic January 09, 2025 10:43am Tricuspid regurgitation chronic F ebruary 2024 10:43am Chest pain inactive January 09, 2025 10:43am [facility] [place] Work Phone: [phone]) 207-420802-11-2025 Telephone encounter Note* Telephone Encounter - Luda Cuevas LPN - 01/09/2025 8:44 AM EST Pt calls to report she went to ER on Wednesday01/07/25 for heart. Pt reports she has a f/u today with her retail link analyst and would like last lab results from 12/18/24 faxed to retail link analyst. Lab results faxed as requested to [phone]. Luda Cuevas LPN [facility]02-[facility] Miscellaneous Notes* Telephone Encounter - Luda Cuevas LPN - 01/09/2025 8:44 AM EST Pt calls to report she went to ER on Wednesday01/07/25 for heart. Pt reports she has a f/u today with her retail link analyst and would like last lab results from 12/18/24 faxed to retail link analyst. Lab results faxed as requested to [phone]. Luda Cuevas LPN documented in [facility]Gen[facility]02-[facility]25 NoteHNO ID: [id number] Author: MAURILIO GARCIA MD Service: ? Author Type: Physician Type: Progress Notes Filed: 01/01/2025 12:03 Note Text: HISTORY AND PHYSICAL Dolores Villa 1945 REFERRING PHYSICIAN: Dipika Hernandez 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 CHIEF COMPLAINT: Consult (EGD, 2018 last EGD) HPI: The patient is a 79 year old female referred for endoscopy. Dolores notes no history of colon complaints. The patient notes no history of upper GI complaints. Dolores has undergone prior endoscopy. 2018 The patient is being seen by me today at the request of Dr. Hernandez for my opinion and advice regarding Gastroesophageal reflux disease, unspecified whether esophagitis present 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. PAST MEDICAL HISTORY Diagnosis Date Abdominal pain, left lower quadrant Abdominal pain, unspecified site 08/22/2010 Arthritis 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 09/20/2018 Added automatically from request for surgery [id number] Barretts esophagus EGD 2010 and 08/25/13 Bronchitis 07/30/2010 Pt was having cough with chest pain . -Was started on nebulisation and antibiotic at [facility]. -Symtoms better now. CAD (coronary artery disease) s/p PCI/CHRISTELLE to LAD with 2.75x15 Xience dilated to 3.4 Complication of anesthesia nausea, vomiting Controlled type 2 diabetes mellitus without complication, without long-term current use of insulin ([facility]) 10/14/2016 Contusion of shoulder region Diverticulitis of sigmoid colon 09/17/2010 Dupuytren's contracture 11/01/2012 left worse than right Enlargement of lymph nodes Esophageal reflux Esophagitis, unspecified 04/03/2011 Generalized osteoarthrosis, unspecified site History of colonic polyps 09/20/2018 Added automatically from request for surgery [id number] Hypertension Kidney disease Lichen sclerosus Migraine 08/23/2009 Migraine without aura, without mention of intractable migraine without mention of status migrainosus Pain in joint, shoulder region PONV (postoperative nausea and vomiting) Pure hypercholesterolemia Sciatica 10/09/2010 Sebaceous cyst 05/01/2015 Subacute thyroiditis Thoracic aortic aneurysm without rupture (HCC) 08/26/2019 Trigger thumb of left hand 08/12/2017 Added automatically from request for surgery [id number] Surgery effective Unspecified hypothyroidism PAST SURGICAL HISTORY Procedure Laterality Date BIOPSY BREAST OPEN INCISIONAL 75 Bx of breast, incisional- bilateral CATARACT EXTRACTION HX 2012 COLON SURGERY HX COLONOSCOPY FLX DX W/COLLJ SPEC WHEN PFRMD 03/2004 Colonoscopy COLONOSCOPY FLX DX W/COLLJ SPEC WHEN PFRMD 10/12/2018 Colonoscopy EGD TRANSORAL BIOPSY SINGLE/MULTIPLE 04/03/11 ESOPHAGOGASTRODUODENOSCOPY TRANSORAL DIAGNOSTIC 10/12/2018 EGD EYE SURGERY HX Bilateral cataract surgery/ INCISE FINGER TENDON SHEATH Right 08/22/2018 Right ring trigger finger release INCISE FINGER TENDON SHEATH Left 03/16/2019 Left middle trigger finger release INCISE FINGER TENDON SHEATH Right 01/05/2020 Right middle trigger finger release INCISE FINGER TENDON SHEATH Right 09/05/2020 Right 5th trigger finger release LAMINECTOMY W/O FFD 1/2 VERT SEG LUMBAR 07/18/2018 revision of L4-L5 LAMINECTOMY,LUMBAR October 04, 2015 Surgical Procedure/Date: lumbar laminectomy L4-5/October 04, 2015 LUMPECTOMY/RADIOTHERAPY DIAG MAMM/A10 1975 right NEUROPLASTY AND/TRANSPOS MEDIAN NRV CARPAL TUNNE Left 09/14/2019 Left Carpal tunnel relese PAST SURGICAL HISTORY OF 2006 left 2nd finger cyst removed PAST SURGICAL HISTORY OF cyst from face PAST SURGICAL HISTORY OF 08/22/2008 left 5th toe repair hammertoe 4th and 5th PAST SURGICAL HISTORY OF 01/30/11 s/p PCI/CHRISTELLE to LAD with 2.75x15 Xience dilated to 3.4 PAST SURGICAL HISTORY OF 2010 partial colectomy 8 in, for diverticulitis PAST SURGICAL HISTORY OF remote right foot infection, ingrwn toenail PAST SURGICAL HISTORY OF 10/06/2013 left hand 4th digit trigger release REM LESIO TRUNK,ARM,LEG 1.1 -2.0CM 05/30/15 Exc. upper mid back David cyst TONSILLECTOMY PRIMARY/SECONDARY Tonsillectomy VAGINAL HYSTERECTOMY VAGINAL HYSTERECTOMY UTERUS 250 GM/< 1985 uterus Current Outpatient Medications Medication Sig levothyroxine (SYNTHROID) 75 mcg tablet Take 1 tablet by mouth once daily. FOLIC ACID ORAL Take by mouth. ferrous sulfate (IRON) 325 mg (65 mg iron) tablet Take 325 mg by mouth. nitroglycerin sublingual (NITROQUICK) 0.4 mg SL tablet Dissolve 1 tablet under the tongue every 5 minutes as needed. As directed for chest pain. IF NO RELIEF CALL 911 isosorbide mononitrate ER (IMDUR) 60 mg 24 hr tablet Take 1 tablet by mouth once daily. ELIQUIS 5 mg tab(s) Take 1 tablet by mouth two times a day. rosuvastatin (CRESTOR) 40 mg tablet Take 1 tablet by mouth daily at bedtime. lisinopril (ZESTRIL) 10 mg tablet Take 1 tablet by mouth once daily. glipiZIDE (GLUCOTROL) 5 mg tablet Take 1 tablet (5 mg) by mouth two times a day before meals. metoprolol tartrat (more content not included)...[facility] 01-01-2025 History of Present illness Narrative* Maurilio Garcia MD - 01/01/2025 12:01 PM EST HISTORY AND PHYSICAL Dolores Villa 1945 REFERRING PHYSICIAN: Dipika Hernandez 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 CHIEF COMPLAINT: Consult (EGD, 2018 last EGD) HPI: The patient is a 79 year old female referred for endoscopy. Dolores notes no history of colon complaints. The patient notes no history of upper GI complaints. Dolores has undergone prior endoscopy. 2018 The patient is being seen by me today at the request of Dr. Hernandez for my opinion and advice regarding Gastroesophageal reflux disease, unspecified whether esophagitis present 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. PAST MEDICAL HISTORY Diagnosis Date Abdominal pain, left lower quadrant Abdominal pain, unspecified site 08/22/2010 Arthritis 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 09/20/2018 Added automatically from request for surgery [id number] Barretts esophagus EGD 2010 and 08/25/13 Bronchitis 07/30/2010 Pt was having cough with chest pain . -Was started on [facility]bulisation and antibiotic at [facility]. -Symtoms better now. CAD (coronary artery disease) s/p PCI/CHRISTELLE to LAD with 2.75x15 Xience dilated to 3.4 Complication of anesthesia nausea, vomiting Controlled type 2 diabetes mellitus without complication, without long-term current use of insulin (HCC) 10/14/2016 Contusion of shoulder region Diverticulitis of sigmoid colon 09/17/2010 Dupuytren's contracture 11/01/2012 left worse than right Enlargement of lymph nodes Esophageal reflux Esophagitis, unspecified 04/03/2011 Generalized osteoarthrosis, unspecified site History of colonic polyps 09/20/2018 Added automatically from request for surgery [id number] Hypertension Kidney disease Lichen sclerosus Migraine 08/23/2009 Migraine without aura, without mention of intractable migraine without mention of status migrainosus Pain in joint, shoulder region PONV (postoperative nausea and vomiting) Pure hypercholesterolemia Sciatica 10/09/2010 Sebaceous cyst 05/01/2015 Subacute thyroiditis Thoracic aortic aneurysm without rupture ([facility]) 08/26/2019 Trigger thumb of left hand 08/12/2017 Added automatically from request for surgery [id number] Surgery effective Unspecified hypothyroidism PAST SURGICAL HISTORY Procedure Laterality Date BIOPSY BREAST OPEN INCISIONAL 75 Bx of breast, incisional- bilateral CATARACT EXTRACTION HX 2012 COLON SURGERY HX COLONOSCOPY FLX DX W/COLLJ SPEC WHEN PFRMD 03/2004 Colonoscopy COLONOSCOPY FLX DX W/COLLJ SPEC WHEN PFRMD 10/12/2018 Colonoscopy EGD TRANSORAL BIOPSY SINGLE/MULTIPLE 04/03/11 ESOPHAGOGASTRODUODENOSCOPY TRANSORAL DIAGNOSTIC 10/12/2018 EGD EYE SURGERY HX Bilateral cataract surgery/ INCISE FINGER TENDON SHEATH Right 08/22/2018 Right ring trigger finger release INCISE FINGER TENDON SHEATH Left 03/16/2019 Left middle trigger finger release INCISE FINGER TENDON SHEATH Right 01/05/2020 Right middle trigger finger release INCISE FINGER TENDON SHEATH Right 09/05/2020 Right 5th trigger finger release LAMINECTOMY W/O FFD 1/2 VERT SEG LUMBAR 07/18/2018 revision of L4-L5 LAMINECTOMY,LUMBAR October 04, 2015 Surgical Procedure/Date: lumbar laminectomy L4-5/October 04, 2015 LUMPECTOMY/RADIOTHERAPY DIAG MAMM/A10 1974 right NEUROPLASTY &/TRANSPOS MEDIAN NRV CARPAL TUNNE Left 09/14/2019 Left Carpal tunnel relese PAST SURGICAL HISTORY OF 2006 left 2nd finger cyst removed PAST SURGICAL HISTORY OF cyst from face PAST SURGICAL HISTORY OF 08/22/2008 left 5th toe repair hammertoe 4th and 5th PAST SURGICAL HISTORY OF 01/30/11 s/p PCI/CHRISTELLE to LAD with 2.75x15 Xience dilated to 3.4 PAST SURGICAL HISTORY OF 2010 partial colectomy 8 in, for diverticulitis PAST SURGICAL HISTORY OF remote right foot infection, ingrwn toenail PAST SURGICAL HISTORY OF 10/06/2013 left hand 4th digit trigger release REM LESIO TRUNK,ARM,LEG 1.1 -2.0CM 05/30/15 Exc. upper mid back David cyst TONSILLECTOMY PRIMARY/SECONDARY <AGE 12 Tonsillectomy VAGINAL HYSTERECTOMY VAGINAL HYSTERECTOMY UTERUS 250 GM/< 1985 uterus Current Outpatient Medications Medication Sig levothyroxine (SYNTHROID) 75 mcg tablet Take 1 tablet by mouth once daily. FOLIC ACID ORAL Take by mouth. ferrous sulfate (IRON) 325 mg (65 mg iron) tablet Take 325 mg by mouth. nitroglycerin sublingual (NITROQUICK) 0.4 mg SL tablet Dissolve 1 tablet under the tongue every 5 minutes as needed. As directed for chest pain. IF NO RELIEF CALL 911 isosorbide mononitrate ER (IMDUR) 60 mg 24 hr tablet Take 1 tablet by mouth once daily. ELIQUIS 5 mg tab(s) Take 1 tablet by mouth two times a day. rosuvastatin (CRESTOR) 40 mg tablet Take 1 tablet by mouth daily at bedtime. lisinopril (ZESTRIL) 10 mg tablet Take 1 tablet by mouth once daily. glipiZIDE (GLUCOTROL) 5 mg tablet Take 1 tablet (5 mg) by mouth two times a day before meals. metoprolol tartrate, short acting, (LOPRESSOR) 50 mg tablet Take 1 tablet by mouth two times a day. blood sugar diagnostic (BLOOD GLUCOSE TEST) test strip Test blood sugar(s) 1 time daily and as needed. Dx: Type 2 DM - Uncontrolled E11.9 Insulin: No Blood Pressure Monitor (BLOOD PRESSURE KIT) 1 Each once daily as needed. metFORMIN ER (GLUCOPHAGE XR) 500 mg 24 hr tablet Take 1 tablet by mouth two times a day with meals.As directed omeprazole (PRILOSEC) 20 mg capsule Take 1 capsule by mouth daily before breakfast. 1/2 hr before meal. cholecalciferol (VITAMIN D3) 50 mcg (2,000 unit) tablet Take 1 tablet by mouth once daily. Lancets lancets Test blood sugar(s) 1 time daily and as needed. Dx: Type 2 DM - Uncontrolled E11.9 Insulin: No ACETAMINOPHEN/DIPHENHYDRAMINE (TYLENOL PM EXTRA STRENGTH ORAL) Take by mouth every 8 hours as needed. THERAPEUTIC MULTIVITAMIN TAB Take by mouth once daily. amoxicillin (AMOXIL) 500 mg capsule Take by mouth. Take four tablets by mouth one hour prior to dental procedure (Patient not taking: Reported on 11/18/2024) No current facility-administered medications for this visit. ALLERGIES: Ativan [Lorazepam], Benzonatate, Hctz [Hydrochlorothiazide], Seasonal Allergies, and Sulfa (Sulfonamide Antibiotics) PERSONAL HISTORY: Social History Tobacco Use Smoking status: Never Passive exposure: Never Smokeless tobacco: Never Vaping Use Vaping status: Never Used Substance Use Topics Alcohol use: No Drug use: No FAMILY HISTORY: FAMILY HISTORY Problem Relation Age of Onset Heart Mother Stroke Mother Hypertension Mother Hypertension Father Heart Father Stroke Father Allergies Sister Diabetes Sister Hypertension Sister REVIEW OF SYMPTOMS: The review of systems data was entered by the nurse and reviewed by me There are no exam notes on file for this visit. PHYSICAL EXAMINATION: General: The patient is 79 year old female, well nourished, well hydrated in no acute distress. Thepatient is oriented to time, place, and person. VITALS: Blood pressure 119/78, pulse (!) 137, temperature 36.5 C (97.7 F), height 152.4 cm (5'), weight 54.4 kg (120 lb), SpO2 95%. Body mass index is 23.44 kg/m . HEENT: Normal cephalic, ataumatic, pupils are equally round, sclera are anicteric, mucous membranesare moist, oropharynx is clear. Neck has no masses, asymmetry or lymphadenopathy. Thyroid is unremarkable. Respiratory: Clear to auscultation and percussion. Normal respiratory excursion and pattern. Cardiac: Examination is regular rate and rhythm. Abdominal exam: Soft, nontender, with no palpable masses. No hepatosplenomegaly. No palpable hernias. Rectal exam: exam deferred Extremities: no clubbing, cyanosis or edema. No adenopathy. Other: LABORATORY VALUES: As Noted RADIOLOGIC STUDIES: As Noted Assessment IMPRESSION: Gastroesophageal reflux disease, unspecified whether esophagitis present 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 PLAN: I plan to perform upper endoscopy. We discussed the risks and benefits of the planned endoscopy. I have informed the patient that complications can occur including failure to complete the endoscopy and perforation. The patient had the opportunity to ask questions concerning the planned endoscopy. My staff has also explained the procedure to the patient in understandable terms and has given the patient printed material concerning the procedure. The patient freely consents to surgery. Diagnoses: (K21.9) Gastroesophageal reflux disease, unspecified whether esophagitis present (K22.70) 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 My findings have been communicated to Dr. Hernandez via shared medical record. This note will be forwarded to Dr. Matthew Spencer MD. Return to Clinic: The patient is instructed to follow-up with me 1 week post operatively. Maurilio Garcia III, MD * Valentina Lechuga YOUTH PROGRAM DIRECTOR - 12/25/2024 1:50 PM EST REVIEW OF SYSTEMS: General: The patient denies fatigue, denies weight loss, denies weight gain, denies feeling hot, and denies feelings of cold. Eyes: The patient denies glaucoma, denies eye injury/surgery, does not wear glasses or contacts. Ear/Nose/Throat: The patient notes allergies, denies hayfever, denies ear infections, and denies bloody noses. Cardiovascular: The patient denies chest pain, notes heart disease, notes high blood pressure,notescardiac stent, notes prior heart attack, denies irregular heart beat, notes high cholesterol, denies poor circulation, denies heart failure, other cardiac issues, denies claudication, notes cold feet, denies peripheral arterial stent. Respiratory: The patient denies tuberculosis, denies pneumonia, denies frequent cough, denies pulmonary embolism, denies shortness of breath, and denies coughing up blood. Gastrointestinal: The patient denies difficulty swallowing, notes acid reflux, denies ulcers, denies vomiting, denies jaundice/hepatitis, denies gallbladder problems, denies black or tarry stools, denies hemorrhoids, denies bleeding from rectum, notes diverticulitis, denies constipation, denies diarrhea, denies loss of stool control, and denies hernias. Kidney/Bladder: The patient denies kidney stones, denies urine infections, and denies bloody urine. Skin: The patient denies a history of skin cancer, denies bleeding/changing moles, and denies a history of skin rash. Neurologic: The patient denies a history of epilepsy/convulsions, denies headaches, denies head/spinal injuries, and denies stroke/TIA. Psychiatric: The patient denies psychiatric medications, denies depression, and denies voices, denies substance abuse. Endocrine: The patient denies thyroid disorders, notes diabetes, and denies hormonal problems. Hematologic: The patient denies a history of bruising, denies bleeding, and denies anemia, denies blood clots. Infections: The patient notes a history of measles and mumps, denies rheumatic fever, and denies sexually transmitted diseases. Musculoskeletal: The patient denies back pain/injury, notes back problems, denies sciatica, denies knee/foot trouble, notes arthritis, or denies gout. When was patient's last Mammogram screening? 2020 Last Colonoscopy: 2017 Valentina Lechuga LPN [facility] Telephone encounter Note * Telephone Encounter - Mari Rodriguez - 12/27/2024 12:19 PM EST Patient stated if anything were to happen she would not go through with treatment. Also, insurance [facility]01-29-[facility] Miscellaneous Notes* Telephone Encounter - Mari Rodriguez - 12/27/2024 12:19 PM EST Patient stated if anything were to happen she would not go through with treatment. Also, insurance * Telephone Encounter - Mari Rodriguez - 12/25/2024 3:05 PM EST 01-01-2025 EGAntonio Verma, provider went over procedure instructions and informed patient to hold blood thinner for 3 days prior Mari Rodriguez [facility]01[facility]25 Telephone encounter Note * Telephone Encounter - Mari Rodriguez - 12/25/2024 3:05 PM EST 01-01-2025 EGAntonio Verma, provider went over procedure instructions and informed patient to hold blood thinner for 3 days prior Mari Rodriguez [facility]01-27-2025 NoteHNO ID: [id number] Author: VALENTINA LECHUGA LPN Service: ? Author Type: LICENSED NURSE Type: Progress Notes Filed: 01/01/2025 12:03 Note Text: REVIEW OF SYSTEMS: General: The patient denies fatigue, denies weight loss, denies weight gain, denies feeling hot, and denies feelings of cold. Eyes: The patient denies glaucoma, denies eye injury/surgery, does not wear glasses or contacts. Ear/Nose/Throat: The patient notes allergies, denies hayfever, denies ear infections, and denies bloody noses. Cardiovascular: The patient denies chest pain, notes heart disease, notes high blood pressure,notes cardiac stent, notes prior heart attack, denies irregular heart beat, notes high cholesterol, denies poor circulation, denies heart failure, other cardiac issues, denies claudication, notes cold feet, denies peripheral arterial stent. Respiratory: The patient denies tuberculosis, denies pneumonia, denies frequent cough, denies pulmonary embolism, denies shortness of breath, and denies coughing up blood. Gastrointestinal: The patient denies difficulty swallowing, notes acid reflux, denies ulcers, denies vomiting, denies jaundice/hepatitis, denies gallbladder problems, denies black or tarry stools, denies hemorrhoids, denies bleeding from rectum, notes diverticulitis, denies constipation, denies diarrhea, denies loss of stool control, and denies hernias. Kidney/Bladder: The patient denies kidney stones, denies urine infections, and denies bloody urine. Skin: The patient denies a history of skin cancer, denies bleeding/changing moles, and denies a history of skin rash. Neurologic: The patient denies a history of epilepsy/convulsions, denies headaches, denies head/spinal injuries, and denies stroke/TIA. Psychiatric: The patient denies psychiatric medications, denies depression, and denies voices, denies substance abuse. Endocrine: The patient denies thyroid disorders, notes diabetes, and denies hormonal problems. Hematologic: The patient denies a history of bruising, denies bleeding, and denies anemia, denies blood clots. Infections: The patient notes a history of measles and mumps, denies rheumatic fever, and denies sexually transmitted diseases. Musculoskeletal: The patient denies back pain/injury, notes back problems, denies sciatica, denies knee/foot trouble, notes arthritis, or denies gout. When was patient's last Mammogram screening? 2020 Last Colonoscopy: 2018 Valentina Lechuga [facility]01-22-2025 Telephone encounter Note* Telephone Encounter - Matthew Spencer MD - 12/20/2024 12:48 PM EST The following approved medication requests have been transmitted electronically. Requested Prescriptions Pending Prescriptions Disp Refills levothyroxine (SYNTHROID) 75 mcg tablet 90 tablet 3 Sig: Take 1 tablet by mouth once daily. Matthew Spencer MD [facility]01-22-2025 Miscellaneous Notes* Telephone Encounter - Mathtew Spencer MD - 12/20/2024 12:48 PM EST The following approved medication requests have been transmitted electronically. Requested Prescriptions Pending Prescriptions Disp Refills levothyroxine (SYNTHROID) 75 mcg tablet 90 tablet 3 Sig: Take 1 tablet by mouth once daily. Matthew Spencer MD * Telephone Encounter - Yakelin Estrada LPN - 12/20/2024 9:38 AM EST Pt has changed mail order pharmacy. Please review and approve. Yakelin Estrada LPN * Telephone Encounter - [place] Tiff Peñaloza - 12/20/2024 9:10 AM EST Prescription Refill Information The patient has been identified by name and date of : Yes Caregiver verified no other encounters exist for this prescription request: Yes Caregiver confirmed with patient/requestor that no other refills are due, in the near future, with this provider at this time: Yes The last office visit in the department: 12/18/24 Does the patient have a future office visit with this provider/department: Yes Requested Prescriptions Pending Prescriptions Disp Refills levothyroxine (SYNTHROID) 75 mcg tablet 90 tablet 3 Sig: Take 1 tablet by mouth once daily. Tiff Alvarez [facility] December 20, 2024 9:13 AM [facility] Telephone encounter Note * Telephone Encounter - Yakelin Estrada LPN - 12/20/2024 9:38 AM EST Pt has changed mail order pharmacy. Please review and approve. Yakelin Estrada LPN [facility]01-22-2025 Telephone encounter Note* Telephone Encounter - Tiff Ribeiro - 12/20/2024 9:10 AM EST Prescription Refill Information The patient has been identified by name and date of : Yes Caregiver verified no other encounters exist for this prescription request: Yes Caregiver confirmed with patient/requestor that no other refills are due, in the near future, with this provider at this time: Yes The last office visit in the department: 12/18/24 Does the patient have a future office visit with this provider/department: Yes Requested Prescriptions Pending Prescriptions Disp Refills levothyroxine (SYNTHROID) 75 mcg tablet 90 tablet 3 Sig: Take 1 tablet by mouth once daily. Tiff Peñaloza December 20, 2024 9:13 AM [facility]01-20-2025 NoteHNO ID: [id number] Author: DIPIKA HERNANDEZ 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 Service: ? Author Type: Nurse Specialist Type: Progress Notes Filed: 01/02/2025 16:37 Note Text: SUBJECTIVE: Depression Screening Never done Anxiety Screening Never done Shingrix Vaccine(2 of 3) due on 01/24/2016 RSV Vaccine(1 - 1-dose 75+ series) Never done Influenza Vaccine(1) due on 07/30/2024 Covid-19 Vaccine( season) due on 07/30/2024 Dilated Retinal Exam due on 09/13/2024 Advance Directive Discussion due on 11/29/2024 HbA1C due on 12/09/2024 Urine Albumin:Creatinine Ratio due on 12/13/2024 LDL Cholesterol due on 12/13/2024 HPI Dolores Villa is a 79 year old female.PMH significant for ACTIVE PROBLEM LIST Hypothyroidism Mixed Hyperlipidemia Other Hammer Toe (Acquired) Pain in Joint, Shoulder Region Gerd (Gastroesophageal Reflux Disease) Occlusion and Stenosis of Carotid Artery Without Mention of Cerebral Infarction Cad (Coronary Artery Disease) Diverticulitis of Colon Postsurgical Percutaneous Transluminal Coronary Angioplasty Status Dupuytren's Contracture Trigger Ring Finger of Left Hand Thoracic and Lumbosacral Neuritis History of Lumbar Laminectomy Bulge of Lumbar Disc Without Myelopathy Type 2 Diabetes Mellitus With Stage 3a Chronic Kidney Disease, Without Long-Term Current Use of Insulin (Hcc) Stage 3a chronic kidney disease (HCC) Trigger Finger, Right Ring Finger Dial's Esophagus Without Dysplasia Chronic pain of left knee--since contusion Thoracic Aortic Aneurysm Without Rupture (Hcc) Hypertensive Kidney Disease With Stage 3a Chronic Kidney Disease (Hcc) Essential (Primary) Hypertension History of Left Heart Catheterization (Lhc) Paf (Paroxysmal Atrial Fibrillation) (Hcc) Presence of Stent in Coronary Artery Pure Hypercholesterolemia Presents today for follow-up visit. She is followed by [facility] for CAD, PAF on OAC. She had right sided periorbital cellulitis with MRSA treated with doxycycline now cleared. Was seen at urgent care and also [facility]. Reports she had what sounds like a folliculitis now resolved as well. DIABETES MELLITUS: She notes diabetes continues to be well controlled at home. Highest reading since last here was 119.. She notes she has been adhering to diet. Consistent with medications. Without report of excessive thirst or increased frequency of urination, chest pain or dyspnea , numbness, tingling or pain in extremities, new or unusual visual symptoms, low sugar/hypoglycemic reactions, weight loss/gain, lightheadedness/dizziness and bowel changes/loose stools. Patient's last HgA1C was Hemoglobin A1C (%) Date Value 06/08/2024 7.3 12/13/2023 6.8 09/23/2021 7.4 03/04/2021 7.2 ) HTN: Ms. Villa indicates that she is without headache, chest pain, palpitations, dyspnea, peripheral edema, orthopnea, fatigue and PND. Last 14 Encounter BP Readings: Date: BP: 12/18/2024 119/65 11/18/2024 112/82 09/11/2024 128/74 06/14/2024 125/79 12/16/2023 90/60 12/13/2023 102/58 11/24/2023 144/81 11/08/2023 104/60 07/21/2023 108/62 06/14/2023 102/58 02/12/2023 108/62 12/14/2022 100/60 11/16/2022 138/94 11/16/2022 120/60 Hypothyroidism. She is doing well on her current dose of Synthroid., Without symptomatic complaints. TSH Date Value 06/08/2024 1.660 mIU/L 12/13/2023 1.390 mIU/L 09/23/2021 2.590 uU/mL 08/07/2020 1.030 uU/mL ) No current GERD symptoms reported. No nausea vomiting reflux or heartburn on PPI. Her last EGD 2018. No recent carotid ultrasound, last completed 2017. No dizziness lightheadedness is present. Continues with iron when she remembers. Review of Systems Constitutional: Negative. Respiratory: Negative. Cardiovascular: Negative. Endocrine: Negative. Objective BP 119/65 Pulse 67 Resp 16 Wt 55 kg (121 lb 4.1 oz) BMI 23.50 kg/m? Physical Exam Vitals and nursing note reviewed. Constitutional: General: She is not in acute distress. Appearance: She is not ill-appearing, toxic-appearing or diaphoretic. HENT: Head: Normocephalic and atraumatic. Right Ear: Tympanic membrane and ear canal normal. Left Ear: Tympanic membrane and ear canal normal. Nose: Right Sinus: No maxillary sinus tenderness or frontal sinus tenderness. Left Sinus: No maxillary sinus tenderness or frontal sinus tenderness. Mouth/Throat: Lips: [place]. Mouth: Mucous membranes are moist. Pharynx: Oropharynx is clear. Tonsils: No tonsillar exudate. Eyes: Conjunctiva/sclera: Conjunctivae normal. Neck: Thyroid: No thyromegaly. Vascular: Normal carotid pulses. No carotid bruit or JVD. Cardiovascular: Rate and Rhythm: Normal rate. Rhythm irregular. Pulses: Carotid pulses are 2+ on the right side and 2+ on the left side. Radial pulses are 2+ on the right side and 2+ on the left side. Heart sounds: Normal heart sounds. Pulmonary: Effort: Pulmonary effort is normal. Breath sounds: No (more content not included)...[facility] 12-18-2024 History of Present illness Narrative* Dipika Hernandez 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 - 12/18/2024 7:18 AM EST SUBJECTIVE: Depression Screening Never done Anxiety Screening Never done Shingrix Vaccine(2 of 3) due on 01/24/2016 RSV Vaccine(1 - 1-dose 75+ series) Never done Influenza Vaccine(1) due on 07/30/2024 Covid-19 Vaccine(2023- season) due on 07/30/2024 Dilated Retinal Exam due on 09/13/2024 Advance Directive Discussion due on 11/29/2024 HbA1C due on 12/09/2024 Urine Albumin:Creatinine Ratio due on 12/13/2024 LDL Cholesterol due on 12/13/2024 HPI Dolores Villa is a 79 year old female.PMH significant for ACTIVE PROBLEM LIST Hypothyroidism Mixed Hyperlipidemia Other Hammer Toe (Acquired) Pain in Joint, Shoulder Region Gerd (Gastroesophageal Reflux Disease) Occlusion and Stenosis of Carotid Artery Without Mention of Cerebral Infarction Cad (Coronary Artery Disease) Diverticulitis of Colon Postsurgical Percutaneous Transluminal Coronary Angioplasty Status Dupuytren's Contracture Trigger Ring Finger of Left Hand Thoracic and Lumbosacral Neuritis History of Lumbar Laminectomy Bulge of Lumbar Disc Without Myelopathy Type 2 Diabetes Mellitus With Stage 3a Chronic Kidney Disease, Without Long-Term Current Use of Insulin (Hcc) Stage 3a chronic kidney disease (HCC) Trigger Finger, Right Ring Finger Dial's Esophagus Without Dysplasia Chronic pain of left knee--since contusion Thoracic Aortic Aneurysm Without Rupture ([facility]) Hypertensive Kidney Disease With Stage 3a Chronic Kidney Disease (Hcc) Essential (Primary) Hypertension History of Left Heart Catheterization ([facility]hc) Paf (Paroxysmal Atrial Fibrillation) ([facility]) Presence of Stent in Coronary Artery Pure Hypercholesterolemia Presents today for follow-up visit. She is followed by [facility] for CAD, PAF on OAC. She had right sided periorbital cellulitis with MRSA treated with doxycycline now cleared. Was seenat urgent care and also [facility]. Reports she had what sounds like a folliculitis now resolved as well. DIABETES MELLITUS: She notes diabetes continues to be well controlled at home. Highest reading since last here was 119.. She notes she has been adhering to diet. Consistent with medications. Without report of excessive thirst or increased frequency of urination, chest pain or dyspnea , numbness, tingling or pain in extremities, new or unusual visual symptoms, low sugar/hypoglycemic reactions, weight loss/gain, lightheadedness/dizziness and bowel changes/loose stools. Patient's last HgA1C was Hemoglobin A1C (%) Date Value 06/08/2024 7.3 12/13/2023 6.8 09/23/2021 7.4 03/04/2021 7.2 ) HTN: Ms. Villa indicates that she is without headache, chest pain, palpitations, dyspnea, peripheral edema, orthopnea, fatigue and PND. Last 14 Encounter BP Readings: Date: BP: 12/18/2024 119/65 11/18/2024 112/82 09/11/2024 128/74 06/14/2024 125/79 12/16/2023 90/60 12/13/2023 102/58 11/24/2023 144/81 11/08/2023 104/60 07/21/2023 108/62 06/14/2023 102/58 02/12/2023 108/62 12/14/2022 100/60 11/16/2022 138/94 11/16/2022 120/60 Hypothyroidism. She is doing well on her current dose of Synthroid., Without symptomatic complaints. TSH Date Value 06/08/2024 1.660 mIU/L 12/13/2023 1.390 mIU/L 09/23/2021 2.590 uU/mL 08/07/2020 1.030 uU/mL ) No current GERD symptoms reported. No nausea vomiting reflux or heartburn on PPI. Her last EGD 2017. No recent carotid ultrasound, last completed 2017. No dizziness lightheadedness is present. Continues with iron when she remembers. Review of Systems Constitutional: Negative. Respiratory: Negative. Cardiovascular: Negative. Endocrine: Negative. Objective BP 119/65 Pulse 67 Resp 16 Wt 55 kg (121 lb 4.1 oz) BMI 23.50 kg/m Physical Exam Vitals and nursing note reviewed. Constitutional: General: She is not in acute distress. Appearance: She is not ill-appearing, toxic-appearing or diaphoretic. HENT: Head: Normocephalic and atraumatic. Right Ear: Tympanic membrane and ear canal normal. Left Ear: Tympanic membrane and ear canal normal. Nose: Right Sinus: No maxillary sinus tenderness or frontal sinus tenderness. Left Sinus: No maxillary sinus tenderness or frontal sinus tenderness. Mouth/Throat: Lips: [place]. Mouth: Mucous membranes are moist. Pharynx: Oropharynx is clear. Tonsils: No tonsillar exudate. Eyes: Conjunctiva/sclera: Conjunctivae normal. Neck: Thyroid: No thyromegaly. Vascular: Normal carotid pulses. No carotid bruit or JVD. Cardiovascular: Rate and Rhythm: Normal rate. Rhythm irregular. Pulses: Carotid pulses are 2+ on the right side and 2+ on the left side. Radial pulses are 2+ on the right side and 2+ on the left side. Heart sounds: Normal heart sounds. Pulmonary: Effort: Pulmonary effort is normal. Breath sounds: Normal breath sounds. Abdominal: General: Bowel sounds are normal. Palpations: Abdomen is soft. Musculoskeletal: Cervical back: Neck supple. Right lower leg: No edema. Left lower leg: No edema. Skin: General: Skin is warm and dry. Neurological: General: No focal deficit present. Mental Status: She is alert and oriented to person, place, and time. ALLERGIES Allergen Reactions Ativan [Lorazepam] Other: See Comments family members had MS change Benzonatate GI Upset Hctz [Hydrochloroth* Intolerance headache Seasonal Allergies Other: See Comments Receiving allergy shots. Sulfa (Sulfonamide * Unknown Medications FOLIC ACID ORAL Take by mouth. ferrous sulfate (IRON) 325 mg (65 mg iron) tablet Take 325 mg by mouth. levothyroxine (SYNTHROID) 75 mcg tablet Take 1 tablet by mouth once daily. isosorbide mononitrate ER (IMDUR) 60 mg 24 hr tablet Take 1 tablet by mouth once daily. ELIQUIS 5 mg tab(s) Take 1 tablet by mouth two times a day. rosuvastatin (CRESTOR) 40 mg tablet Take 1 tablet by mouth daily at bedtime. lisinopril (ZESTRIL) 10 mg tablet Take 1 tablet by mouth once daily. glipiZIDE (GLUCOTROL) 5 mg tablet Take 1 tablet (5 mg) by mouth two times a day before meals. metoprolol tartrate, short acting, (LOPRESSOR) 50 mg tablet Take 1 tablet by mouth two times a day. blood sugar diagnostic (BLOOD GLUCOSE TEST) test strip Test blood sugar(s) 1 time daily and as needed. Dx: Type 2 DM - Uncontrolled E11.9 Insulin: No Blood Pressure Monitor (BLOOD PRESSURE KIT) 1 Each once daily as needed. metFORMIN ER (GLUCOPHAGE XR) 500 mg 24 hr tablet Take 1 tablet by mouth two times a day with meals.As directed omeprazole (PRILOSEC) 20 mg capsule Take 1 capsule by mouth daily before breakfast. 1/2 hr before meal. cholecalciferol (VITAMIN D3) 50 mcg (2,000 unit) tablet Take 1 tablet by mouth once daily. nitroglycerin sublingual (NITROQUICK) 0.4 mg SL tablet Dissolve 1 tablet under the tongue every 5 minutes as needed. As directed for chest pain. IF NO RELIEF CALL 911 Lancets lancets Test blood sugar(s) 1 time daily and as needed. Dx: Type 2 DM - Uncontrolled E11.9 Insulin: No ACETAMINOPHEN/DIPHENHYDRAMINE (TYLENOL PM EXTRA STRENGTH ORAL) Take by mouth every 8 hours as needed. THERAPEUTIC MULTIVITAMIN TAB Take by mouth once daily. amoxicillin (AMOXIL) 500 mg capsule Take by mouth. Take four tablets by mouth one hour prior to dental procedure (Patient not taking: Reported on 11/18/2024) PAST MEDICAL HISTORY Diagnosis Date Abdominal pain, left lower quadrant Abdominal pain, unspecified site 08/22/2010 Arthritis 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 09/20/2018 Added automatically from request for surgery [id number] Barretts esophagus EGD 2010 and 08/25/13 Bronchitis 07/30/2010 Pt was having cough with chest pain . -Was started on nebulisation and antibiotic at [facility]. -Symtoms better now. CAD (coronary artery disease) s/p PCI/CHRISTELLE to LAD with 2.75x15 Xience dilated to 3.4 Complication of anesthesia nausea, vomiting Controlled type 2 diabetes mellitus without complication, without long-term current use of insulin ([facility]) 10/14/2016 Contusion of shoulder region Diverticulitis of sigmoid colon 09/17/2010 Dupuytren's contracture 11/01/2012 left worse than right Enlargement of lymph nodes Esophageal reflux Esophagitis, unspecified 04/03/2011 Generalized osteoarthrosis, unspecified site History of colonic polyps 09/20/2018 Added automatically from request for surgery [id number] Hypertension Kidney disease Lichen sclerosus Migraine 08/23/2009 Migraine without aura, without mention of intractable migraine without mention of status migrainosus Pain in joint, shoulder region PONV (postoperative nausea and vomiting) Pure hypercholesterolemia Sciatica 10/09/2010 Sebaceous cyst 05/01/2015 Subacute thyroiditis Thoracic aortic aneurysm without rupture ([facility]) 08/26/2019 Trigger thumb of left hand 08/12/2017 Added automatically from request for surgery [id number] Surgery effective Unspecified hypothyroidism Social History Tobacco Use Smoking status: Never Passive exposure: Never Smokeless tobacco: Never Vaping Use Vaping status: Never Used Substance Use Topics Alcohol use: No Drug use: No Latest Ref Rng 12/13/2023 01/17/2024 06/08/2024 WBC 3.70 - 11.00 k/uL 9.56 7.98 RBC 3.90 - 5.20 m/uL 3.65 (L) 3.68 (L) Hemoglobin 11.5 - 15.5 g/dL 11.2 (L) 11.5 Hematocrit 36.0 - 46.0 % 36.2 36.4 MCV 80.0 - 100.0 fL 99.2 98.9 MCH 26.0 - 34.0 pg 30.7 31.3 MCHC 30.5 - 36.0 g/dL 30.9 31.6 RDW-CV 11.5 - 15.0 % 14.9 15.3 (H) Platelet Count 150 - 400 k/uL 286 242 MPV 9.0 - 12.7 fL 11.4 11.7 Neut% % 59.6 Abs Neut (ANC) 1.45 - 7.50 k/uL 4.77 Lymph% % 24.6 Abs Lymph 1.00 - 4.00 k/uL 1.96 [place]% % 12.9 Abs [place] <0.87 k/uL 1.03 (H) Eosin% % 1.3 Abs Eosin <0.46 k/uL 0.10 Baso% % 0.8 Abs Baso <0.11 k/uL 0.06 Immature Gran % % 0.8 IMMATURE GRANS (ABS) <0.10 k/uL 0.06 NRBC /100 WBC 0.0 Absolute nRBC <0.01 k/uL <0.01 <0.01 DTYPE Auto Protein, Total 6.3 - 8.0 g/dL 7.4 7.7 Albumin 3.9 - 4.9 g/dL 4.2 4.2 Calcium 8.5 - 10.2 mg/dL 10.4 (H) 8.9 10.3 (H) Bilirubin, Total 0.2 - 1.3 mg/dL 0.5 0.4 Alkaline Phosphatase 34 - 123 U/L 58 63 AST 13 - 35 U/L 24 22 ALT 7 - 38 U/L 10 9 Glucose 74 - 99 mg/dL 85 236 (H) 82 BUN 7 - 21 mg/dL 19 24 (H) 17 Creatinine 0.58 - 0.96 mg/dL 1.45 (H) 1.40 (H) 1.59 (H) Sodium 136 - 144 mmol/L 139 133 (L) 143 Potassium 3.7 - 5.1 mmol/L 4.7 4.3 4.9 Chloride 98 - 107 mmol/L 103 99 106 CO2 22 - 30 mmol/L 28 25 25 Anion Gap 8 - 15 mmol/L 8 (L) 9 12 eGFR >=60 mL/min/1.73m 37 (L) 39 (L) 33 (L) Cholesterol, Total <200 mg/dL 135 Triglyceride <150 mg/dL 102 HDL Cholesterol >39 mg/dL 46 Non HDL Cholesterol <130 mg/dL 89 Fasting Time hrs 13 VLDL Cholesterol <30 mg/dL 20 TC:HDL Ratio <5.10 2.93 LDL Cholesterol <100 mg/dL 69 LDL:HDL Ratio <2.54 1.50 Creatinine, Ur Random (UCRR) 20.0 - 300.0 mg/dL 91.3 Albumin, Urine Random mg/L 78.1 Albumin/Creat Ratio <30 mg/g 86 (H) Hemoglobin A1C 4.3 - 5.6 % 6.8 (H) 7.3 (H) Estimated Average Glucose mg/dL 148 163 Vitamin D 25 Hydroxy 31.0 - 80.0 ng/mL 47.8 51.3 TSH 0.270 - 4.200 mIU/L 1.390 1.660 Free T4 0.9 - 1.7 ng/dL 1.5 Digoxin 0.6 - 1.2 ng/mL 0.5 (L) ASSESSMENT/PLAN: 1. Type 2 diabetes mellitus with stage 3a chronic kidney disease, without long- term current use of insulin ([facility]) - ICD9: 250.40, 585.3, ICD10: E11.22, N18.31 Stable, currently controlled, continue to monitor. 2. PAF (paroxysmal atrial fibrillation) ([facility]) - ICD9: 427.31, ICD10: I48.0 3. Coronary artery disease involving [place] heart without angina pectoris, unspecified vessel or lesion type - ICD9: 414.01, ICD10: I25.10 4. Mixed hyperlipidemia - ICD9: 272.2, ICD10: E78.2 Recommend a plant based diet such as Mediterranean diet with plenty of vegetables, fruits,whole grains, fish, chicken, turkey or plant proteins and routine exercise such as walking Continue with statin unchanged. 5. Stage 3a chronic kidney disease (HCC) - ICD9: 585.3, ICD10: N18.31 - eGFR: 33 Stable - Counseled on avoiding NSAIDs, adequate hydration - ACEi/ARB prescribed: Yes 6. Acquired hypothyroidism - ICD9: 244.9, ICD10: E03.9 - Take on an empty stomach either first thing in the morning or at bedtime. - check TSH today - continue current dose of Synthroid 7. Gastroesophageal reflux disease, unspecified whether esophagitis present - ICD9: 530.81, ICD10: K21.9 Well controlled, history of Dial's esophagus, last EGD 2017, 2-year follow-up recommended. - CONSULT TO GENERAL SURGERY 8. Bilateral carotid artery stenosis - ICD9: 433.10, 433.30, ICD10: I65.23 Mild stenosis bilateral, last ultrasound 2019, has been fairly stable, asymptomatic - US CAROTID ARTERIES [facility] 9. 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 - ICD9: 530.85, ICD10: K22.70 - CONSULT TO GENERAL SURGERY 10. Encounter for immunization - ICD9: V03.89, ICD10: Z23 decline at this time - [employer] - INFLUENZA VACCINE, PRSV FREE, AGE 65+ YR, HIGH DOSE, TRIVALENT (FLUZONE HIGH-DOSE) - PFIZER-BIONTECH COVID-19 VACCINE AGE 12+ YR ([place]NATY) - RSV PRINTED PHARMACY INSTRUCTIONS 11. Screening for depression - ICD9: V79.0, ICD10: Z13.31 - DEPRESSION SCREENING 12. Encounter for screening examination for other mental health and behavioral disorders - ICD9: V79.8, ICD10: Z13.39 - ANXIETY SCREENING iDpika Hernandez APRN.CNS Medical Decision Making: Problems: Moderate: 2+ stable chronic illnesses Data: Unique test result(s) reviewed: 3+ Unique test(s) ordered: 1 Risk: Moderate: Drug management Medical Decision Making Level: 4 - Moderate [facility]* Diagnosis Type 2 diabetes mellitus with stage 3a chronic kidney disease, without long-term current use of insulin (HCC)- Primary PAF (paroxysmal atrial fibrillation) (HCC) Atrial fibrillation Coronary artery disease involving [place] heart without angina pectoris, unspecified vessel or lesion type Mixed hyperlipidemia Stage 3a chronic kidney disease (HCC) Acquired hypothyroidism Unspecified hypothyroidism Gastroesophageal reflux disease, unspecified whether esophagitis present Bilateral carotid artery stenosis Occlusion and stenosis of carotid artery without mention of cerebral infarction 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 Dial's esophagus Encounter for immunization Need for other specified prophylactic vaccination against single bacterial disease Screening for depression Encounter for screening examination for other mental health and behavioral disorders documented in this encounter [facility] Telephone encounter Note* Telephone Encounter - Divya Delgado - 12/02/2024 10:01 AM EST Prescription Refill Information The patient has been identified by name and date of : Yes Caregiver verified no other encounters exist for this prescription request: Yes Caregiver confirmed with patient/requestor that no other refills are due, in the near future, with this provider at this time: Yes The last office visit in the department: 06/14/24 Does the patient have a future office visit with this provider/department: Yes Requested Prescriptions Pending Prescriptions Disp Refills levothyroxine (SYNTHROID) 75 mcg tablet 90 tablet 3 Sig: Take 1 tablet by mouth once daily. Divya Delgado December 02, 2024 10:02 AM [facility]01-04-2025 Miscellaneous Notes* Telephone Encounter - Divya Delgado - 12/02/2024 10:01 AM EST Prescription Refill Information The patient has been identified by name and date of : Yes Caregiver verified no other encounters exist for this prescription request: Yes Caregiver confirmed with patient/requestor that no other refills are due, in the near future, with this provider at this time: Yes The last office visit in the department: 06/14/24 Does the patient have a future office visit with this provider/department: Yes Requested Prescriptions Pending Prescriptions Disp Refills levothyroxine (SYNTHROID) 75 mcg tablet 90 tablet 3 Sig: Take 1 tablet by mouth once daily. Divya Delgado December 02, 2024 10:02 AM documented in this encounterGenesis [facility] Telephone encounter Note * Telephone Encounter - Waleska Ann RN - 11/21/2024 9:40 AM EST Patient calls to request two swab tests completed on 11/18/[address] Matute at the [facility]. Faxed per request to [phone]. Waleska Ann RN [facility]12-24-2024 Miscellaneous Notes* Telephone Encounter - Waleska Ann RN - 11/21/2024 9:40 AM EST Patient calls to request two swab tests completed on 11/18/[address] Matute at the [facility]. Faxed per request to [phone]. Waleska Ann RN * Telephone Encounter - Jaclyn Spears APRN.AARON - 11/21/2024 8:48 AM EST Patient notified that would culture positive for MRSA. She was seen by the [facility] and changed from doxycycline to keflex. Advised to stop keflex, and restart and complete doxycycline. Follow up with PCP prn Jaclyn Spears APRN.AARON documented [facility]12-[facility]24 Telephone encounter Note * Telephone Encounter - Jaclyn Spears APRN.CNP - 11/21/2024 8:48 AM EST Patient notified that would culture positive for MRSA. She was seen by the [facility] and changed from doxycycline to keflex. Advised to stop keflex, and restart and complete doxycycline. Follow up with PCP prn Jaclyn Spears APRN.INFORMATION CODER [facility] Work Phone: [phone] Telephone encounter Note* Telephone Encounter - Sharla Mckeon RN - 11/19/2024 9:16 AM EST Patient returning call regarding lab results. Advised patient of the following: ----- Message from Sarah Valencia APRN.INFORMATION CODER sent at 11/19/2024 8:19 AM EST ----- Please advise Dolores the herpes swab was negative. Follow instructions given by provider at visit, f/u with PCP if symptoms persist or worsen. Patient verbalizes understanding. Patient states that she is following the instructions from the provider that she saw yesterday. Transferred patient to [facility] at the Appointment [facility] to schedule an Ophthalmology appointment tomorrow as per [facility] recommendation. Patient denies any new or worsening symptoms of which a provider is not aware: Yes. [facility]12-22-2024 Miscellaneous Notes* Telephone Encounter - Sharla Mckeon RN - 11/19/2024 9:16 AM EST Patient returning call regarding lab results. Advised patient of the following: ----- Message from Sarah Valencia APRN.CNP sent at 11/19/2024 8:19 AM EST ----- Please advise Dolores the herpes swab was negative. Follow instructions given by provider at visit, f/u with PCP if symptoms persist or worsen. Patient verbalizes understanding. Patient states that she is following the instructions from the provider that she saw yesterday. Transferred patient to [facility] at the Appointment Center to schedule an Ophthalmology appointment tomorrow as per [facility] recommendation. Patient denies any new or worsening symptoms of which a provider is not aware: Yes. documented in this encounterGen[facility]12-22-2024 Telephone encounter Note * Telephone Encounter - Elsy Bobby MA - 11/19/2024 8:44 AM EST Left VM instructing patient to return call to receive results. Elsy Bobby MA [facility]12-22-2024 Miscellaneous Notes* Telephone Encounter - Elsy Bobby MA - 11/19/2024 8:44 AM EST Left VM instructing patient to return call to receive results. Elsy Bobby MA * Telephone Encounter - Elsy Bobby MA - 11/19/2024 8:43 AM EST ----- Message from Sarah Valencia APRN.INFORMATION CODER sent at 11/19/2024 8:19 AM EST ----- Please advise Dolores the herpes swab was negative. Follow instructions given by provider at visit, f/u with PCP if symptoms persist or worsen. documented in this encounterGenesis Hospital12-22-2024 Telephone encounter Note * Telephone Encounter - Elsy Bobby MA - 11/19/2024 8:43 AM EST ----- Message from Sarah Valencia APRN.INFORMATION CODER sent at 11/19/2024 8:19 AM EST ----- Please advise Dolores the herpes swab was negative. Follow instructions given by provider at visit, f/u with PCP if symptoms persist or worsen. [facility]12-21-2024 NoteHNO ID: [id number] Author: ROEL ELKINS PA-C Service: ? Author Type: Physician Cathode Maker Type: Progress Notes Filed: 11/18/2024 14:57 Note Text: This note was created using Supponorriter. Subjective Dolores Villa is a 79 year old female. HPI Patient presents with red bumps under her right eye over the past 3 days. She states they are itchy and painful. Denies any pain of her actual eyeball or redness of her eyeball. She had bumps in the groin area a few months ago and was treated with antibiotics. She states the got a little better but then did end up recurring. She then was treated again and they did get somewhat better. She had a negative HSV/VZV swab. Denies history of known MRSA. No fever or chills. Review of Systems HENT: Negative. Eyes: Right lower eyelid redness and swelling Respiratory: Negative. Cardiovascular: Negative. Gastrointestinal: Negative. Musculoskeletal: Negative. All other systems reviewed and are negative. PAST MEDICAL HISTORY Diagnosis Date Abdominal pain, left lower quadrant Abdominal pain, unspecified site 08/22/2010 Arthritis 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 09/20/2018 Added automatically from request for surgery [id number] Barretts esophagus EGD 2010 and 08/25/13 Bronchitis 07/30/2010 Pt was having cough with chest pain . -Was started on nebulisation and antibiotic at [facility]. -Symtoms better now. CAD (coronary artery disease) s/p PCI/CHRISTELLE to LAD with 2.75x15 Xience dilated to 3.4 Complication of anesthesia nausea, vomiting Controlled type 2 diabetes mellitus without complication, without long-term current use of insulin ([facility]) 10/14/2016 Contusion of shoulder region Diverticulitis of sigmoid colon 09/17/2010 Dupuytren's contracture 11/01/2012 left worse than right Enlargement of lymph nodes Esophageal reflux Esophagitis, unspecified 04/03/2011 Generalized osteoarthrosis, unspecified site History of colonic polyps 09/20/2018 Added automatically from request for surgery [id number] Hypertension Kidney disease Lichen sclerosus Migraine 08/23/2009 Migraine without aura, without mention of intractable migraine without mention of status migrainosus Pain in joint, shoulder region PONV (postoperative nausea and vomiting) Pure hypercholesterolemia Sciatica 10/09/2010 Sebaceous cyst 05/01/2015 Subacute thyroiditis Thoracic aortic aneurysm without rupture ([facility]) 08/26/2019 Trigger thumb of left hand 08/12/2017 Added automatically from request for surgery [id number] Surgery effective Unspecified hypothyroidism Current Outpatient Medications Medication Sig Dispense Refill isosorbide mononitrate ER (IMDUR) 60 mg 24 hr tablet Take 1 tablet by mouth once daily. 90 tablet 3 ELIQUIS 5 mg tab(s) Take 1 tablet by mouth two times a day. 180 tablet 3 rosuvastatin (CRESTOR) 40 mg tablet Take 1 tablet by mouth daily at bedtime. 90 tablet 3 lisinopril (ZESTRIL) 10 mg tablet Take 1 tablet by mouth once daily. 90 tablet 3 glipiZIDE (GLUCOTROL) 5 mg tablet Take 1 tablet (5 mg) by mouth two times a day before meals. 180 tablet 3 metoprolol tartrate, short acting, (LOPRESSOR) 50 mg tablet Take 1 tablet by mouth two times a day. 180 tablet 3 levothyroxine (SYNTHROID) 75 mcg tablet Take 1 tablet by mouth once daily. 90 tablet 3 blood sugar diagnostic (BLOOD GLUCOSE TEST) test strip Test blood sugar(s) 1 time daily and as needed. Dx: Type 2 DM - Uncontrolled E11.9 Insulin: No 50 Strip 11 Blood Pressure Monitor (BLOOD PRESSURE KIT) 1 Each once daily as needed. 1 Kit 0 metFORMIN ER (GLUCOPHAGE XR) 500 mg 24 hr tablet Take 1 tablet by mouth two times a day with meals. As directed 180 Each 3 omeprazole (PRILOSEC) 20 mg capsule Take 1 capsule by mouth daily before breakfast. 1/2 hr before meal. 90 Each 3 cholecalciferol (VITAMIN D3) 50 mcg (2,000 unit) tablet Take 1 tablet by mouth once daily. 90 tablet 3 nitroglycerin sublingual (NITROQUICK) 0.4 mg SL tablet Dissolve 1 tablet under the tongue every 5 minutes as needed. As directed for chest pain. IF NO RELIEF CALL 911 25 tablet 1 Lancets lancets Test blood sugar(s) 1 time daily and as needed. Dx: Type 2 DM - Uncontrolled E11.9 Insulin: No 100 Each 11 ACETAMINOPHEN/DIPHENHYDRAMINE (TYLENOL PM EXTRA STRENGTH ORAL) Take by mouth every 8 hours as needed. THERAPEUTIC MULTIVITAMIN TAB Take by mouth once daily. 0 doxycycline (VIBRA-TABS) 100 mg tablet Take 1 tablet by mouth two times a day for 7 days. 14 tablet 0 amoxicillin (AMOXIL) 500 mg capsule Take by mouth. Take four tablets by mouth one hour prior to dental procedure (Patient not taking: Reported on 11/18/2024) 4 capsule 1 No current facility-administered medications for this visit. PAST SURGICAL HISTORY Procedure Laterality Date BIOPSY BREAST OPEN INCISIONAL 75 Bx of breast, incisional- bilateral CATARACT EXTRACTION HX 2012 COLON SURGERY HX COLONOSCOPY FLX DX W/COLLJ SPEC WHEN PFRMD 03/2004 Colonosc (more content not included)...[facility]12-21-2024 History of Present illness Narrative* Roel Elkins PA-C - 11/18/2024 2:53 PM EST Images from the original note were not included. This note was created using Supponorriter. Subjective Dolores Villa is a 79 year old female. HPI Patient presents with red bumps under her right eye over the past 3 days. She states they are itchyand painful. Denies any pain of her actual eyeball or redness of her eyeball. She had bumps in the groin area a few months ago and was treated with antibiotics. She states the got a little better butthen did end up recurring. She then was treated again and they did get somewhat better. She had a negative HSV/VZV swab. Denies history of known MRSA. No fever or chills. Review of Systems HENT: Negative. Eyes: Right lower eyelid redness and swelling Respiratory: Negative. Cardiovascular: Negative. Gastrointestinal: Negative. Musculoskeletal: Negative. All other systems reviewed and are negative. PAST MEDICAL HISTORY Diagnosis Date Abdominal pain, left lower quadrant Abdominal pain, unspecified site 08/22/2010 Arthritis 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 09/20/2018 Added automatically from request for surgery [id number] Barretts esophagus EGD 2010 and 08/25/13 Bronchitis 07/30/2010 Pt was having cough with chest pain . -Was [facility] and antibiotic [facility]. -Symtoms better now. CAD (coronary artery disease) s/p PCI/CHRISTELLE to LAD with 2.75x15 Xience dilated to 3.4 Complication of anesthesia nausea, vomiting Controlled type 2 diabetes mellitus without complication, without long-term current use of insulin ([facility]) 10/14/2016 Contusion of shoulder region Diverticulitis of sigmoid colon 09/17/2010 Dupuytren's contracture 11/01/2012 left worse than right Enlargement of lymph nodes Esophageal reflux Esophagitis, unspecified 04/03/2011 Generalized osteoarthrosis, unspecified site History of colonic polyps 09/20/2018 Added automatically from request for surgery [id number] Hypertension Kidney disease Lichen sclerosus Migraine 08/23/2009 Migraine without aura, without mention of intractable migraine without mention of status migrainosus Pain in joint, shoulder region PONV (postoperative nausea and vomiting) Pure hypercholesterolemia Sciatica 10/09/2010 Sebaceous cyst 05/01/2015 Subacute thyroiditis Thoracic aortic aneurysm without rupture ([facility]) 08/26/2019 Trigger thumb of left hand 08/12/2017 Added automatically from request for surgery [id number] Surgery effective Unspecified hypothyroidism Current Outpatient Medications Medication Sig Dispense Refill isosorbide mononitrate ER (IMDUR) 60 mg 24 hr tablet Take 1 tablet by mouth once daily. 90 tablet 3 ELIQUIS 5 mg tab(s) Take 1 tablet by mouth two times a day. 180 tablet 3 rosuvastatin (CRESTOR) 40 mg tablet Take 1 tablet by mouth daily at bedtime. 90 tablet 3 lisinopril (ZESTRIL) 10 mg tablet Take 1 tablet by mouth once daily. 90 tablet 3 glipiZIDE (GLUCOTROL) 5 mg tablet Take 1 tablet (5 mg) by mouth two times a day before meals. 180 tablet 3 metoprolol tartrate, short acting, (LOPRESSOR) 50 mg tablet Take 1 tablet by mouth two times a day.180 tablet 3 levothyroxine (SYNTHROID) 75 mcg tablet Take 1 tablet by mouth once daily. 90 tablet 3 blood sugar diagnostic (BLOOD GLUCOSE TEST) test strip Test blood sugar(s) 1 time daily and as needed. Dx: Type 2 DM - Uncontrolled E11.9 Insulin: No 50 Strip 11 Blood Pressure Monitor (BLOOD PRESSURE KIT) 1 Each once daily as needed. 1 Kit 0 metFORMIN ER (GLUCOPHAGE XR) 500 mg 24 hr tablet Take 1 tablet by mouth two times a day with meals.As directed 180 Each 3 omeprazole (PRILOSEC) 20 mg capsule Take 1 capsule by mouth daily before breakfast. 1/2 hr before meal. 90 Each 3 cholecalciferol (VITAMIN D3) 50 mcg (2,000 unit) tablet Take 1 tablet by mouth once daily. 90 tablet 3 nitroglycerin sublingual (NITROQUICK) 0.4 mg SL tablet Dissolve 1 tablet under the tongue every 5 minutes as needed. As directed for chest pain. IF NO RELIEF CALL 911 25 tablet 1 Lancets lancets Test blood sugar(s) 1 time daily and as needed. Dx: Type 2 DM - Uncontrolled E11.9 Insulin: No 100 Each 11 ACETAMINOPHEN/DIPHENHYDRAMINE (TYLENOL PM EXTRA STRENGTH ORAL) Take by mouth every 8 hours as needed. THERAPEUTIC MULTIVITAMIN TAB Take by mouth once daily. 0 doxycycline (VIBRA-TABS) 100 mg tablet Take 1 tablet by mouth two times a day for 7 days. 14 tablet0 amoxicillin (AMOXIL) 500 mg capsule Take by mouth. Take four tablets by mouth one hour prior to dental procedure (Patient not taking: Reported on 11/18/2024) 4 capsule 1 No current facility-administered medications for this visit. PAST SURGICAL HISTORY Procedure Laterality Date BIOPSY BREAST OPEN INCISIONAL 75 Bx of breast, incisional- bilateral CATARACT EXTRACTION HX 2012 COLON SURGERY HX COLONOSCOPY FLX DX W/COLLJ SPEC WHEN PFRMD 03/2004 Colonoscopy COLONOSCOPY FLX DX W/COLLJ SPEC WHEN PFRMD 10/12/2018 Colonoscopy EGD TRANSORAL BIOPSY SINGLE/MULTIPLE 04/03/11 ESOPHAGOGASTRODUODENOSCOPY TRANSORAL DIAGNOSTIC 10/12/2018 EGD EYE SURGERY HX Bilateral cataract surgery/ INCISE FINGER TENDON SHEATH Right 08/22/2018 Right ring trigger finger release INCISE FINGER TENDON SHEATH Left 03/16/2019 Left middle trigger finger release INCISE FINGER TENDON SHEATH Right 01/05/2020 Right middle trigger finger release INCISE FINGER TENDON SHEATH Right 09/05/2020 Right 5th trigger finger release LAMINECTOMY W/O FFD 1/2 VERT SEG LUMBAR 07/18/2018 revision of L4-L5 LAMINECTOMY,LUMBAR October 04, 2015 Surgical Procedure/Date: lumbar laminectomy L4-5/October 04, 2015 LUMPECTOMY/RADIOTHERAPY DIAG MAMM/A10 1974 right NEUROPLASTY &/TRANSPOS MEDIAN NRV CARPAL TUNNE Left 09/14/2019 Left Carpal tunnel relese PAST SURGICAL HISTORY OF 2006 left 2nd finger cyst removed PAST SURGICAL HISTORY OF cyst from face PAST SURGICAL HISTORY OF 08/22/2008 left 5th toe repair hammertoe 4th and 5th PAST SURGICAL HISTORY OF 01/30/11 s/p PCI/CHRISTELLE to LAD with 2.75x15 Xience dilated to 3.4 PAST SURGICAL HISTORY OF 2010 partial colectomy 8 in, for diverticulitis PAST SURGICAL HISTORY OF remote right foot infection, ingrwn toenail PAST SURGICAL HISTORY OF 10/06/2013 left hand 4th digit trigger release REM LESIO TRUNK,ARM,LEG 1.1 -2.0CM 05/30/15 Exc. upper mid back David cyst TONSILLECTOMY PRIMARY/SECONDARY <AGE 12 Tonsillectomy VAGINAL HYSTERECTOMY VAGINAL HYSTERECTOMY UTERUS 250 GM/< 1985 uterus FAMILY HISTORY Problem Relation Age of Onset Heart Mother Stroke Mother Hypertension Mother Hypertension Father Heart Father Stroke Father Allergies Sister Diabetes Sister Hypertension Sister Social History Tobacco Use Smoking status: Never Passive exposure: Never Smokeless tobacco: Never Vaping Use Vaping status: Never Used Substance Use Topics Alcohol use: No Drug use: No Objective BP 112/82 Pulse 100 Temp 36.9 C (98.5 F) Resp 20 Wt 56.7 kg (125 lb) SpO2 95% BMI 24.22kg/m Physical Exam Vitals reviewed. Constitutional: Appearance: Normal appearance. HENT: Head: Normocephalic and atraumatic. Eyes: Comments: Patient has multiple whiteheads consistent with styes in the medial right lower eyelid with some surrounding erythema. No erythema of the sclera or injection. She is PERRLA and EOMI. No eyedrainage. Skin: General: Skin is warm and dry. Neurological: Mental Status: She is alert. ASSESSMENT/PLAN: 1. Eyelid lesion - ICD9: 374.9, ICD10: H02.9 Likely multiple styes however I did swab for HSV/VZV and did a wound culture. Will cover with doxycycline. Patient did have a negative viral swab previously on lesion she was having in the groin arearecently. I did want to cover with possible MRSA so did treat with doxycycline. Recommended she follow-up with her eye doctor on Wednesday at the [facility]. Red flags for ER care discussed. If positive for HSV or VZV would recommend initiating Valtrex or acyclovir. She does have kidney disease, gfr from 06/21 33 and creatinine 1.59. 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), NAAT, LESION SWAB - ABSCESS AND WOUND CULTURE WITH GRAM STAIN - CONSULT TO OPHTHALMOLOGY Roel Elkins PA-C Assessment and Plan documented in [facility] encounterGenesis Hospital12-12-2024 Telephone encounter Note * Telephone Encounter - Mesha Villanueva - 11/09/2024 8:41 AM EST Prescription Refill Information The patient has been identified by name and date of : Yes Caregiver verified no other encounters exist for this prescription request: Yes Caregiver confirmed with patient/requestor that no other refills are due, in the near future, with this provider at this time: Yes The last office visit in the department: 06-14-24 Does the patient have a future office visit with this provider/department: Yes Requested Prescriptions Pending Prescriptions Disp Refills isosorbide mononitrate ER (IMDUR) 60 mg 24 hr tablet 90 tablet 3 Sig: Take 1 tablet by mouth once daily. Mesha Villanueva November 09, 2024 8:42 AM [facility]12-12-2024 Miscellaneous Notes* Telephone Encounter - Mesha Villanueva - 11/09/2024 8:41 AM EST Prescription Refill Information The patient has been identified by name and date of : Yes Caregiver verified no other encounters exist for this prescription request: Yes Caregiver confirmed with patient/requestor that no other refills are due, in the near future, with this provider at this time: Yes The last office visit in the department: 06-14-24 Does the patient have a future office visit with this provider/department: Yes Requested Prescriptions Pending Prescriptions Disp Refills isosorbide mononitrate ER (IMDUR) 60 mg 24 hr tablet 90 tablet 3 Sig: Take 1 tablet by mouth once daily. Mesha Villanueva November 09, 2024 8:42 AM documented in this encounterGenesis Hospital11-11-2024 Telephone encounter Note * Telephone Encounter - Nasreen Wise RN - 10/09/2024 1:42 PM EST Patient notified and voiced understanding of below. Nasreen Wise RN [facility]11-11-2024 Miscellaneous Notes* Telephone Encounter - Nasreen Wise RN - 10/09/2024 1:42 PM EST Patient notified and voiced understanding of below. Nasreen Wise RN * Addendum Note - Cayla Hoffman APRN.CNP - 10/09/2024 12:54 PM ESTAddended by: CAYLA HOFFMAN on: 10/09/2024 12:54 PM Modules accepted: Orders * Telephone Encounter - Cayla Hoffman APRN.CNP - 10/09/2024 12:52 PM EST I will send in some clindamycin, if she is not seeing any improvement after 48 hrs she will need kezia seen. Cayla Hoffman APRN.CNP * Telephone Encounter - Nasreen Wise RN - 10/09/2024 12:32 PM EST Patient calling stating she has vaginal lumps again. She currently has 5 large ones and 5 small ones that have been present x 2 weeks. Patient states one did burst but now is closed and filled with fluid again. Patient states are is painful and hurts to sit or stand. Patient was last seen in officeon 09/11 for this and was prescribed Keflex. Patient wanting to know if she can be prescribed something again or does she need to be evaluated first. Nasreen Wise RN documented in this encounterGenesis Hospital11-11-2024 Note* Addendum Note - Cayla Hoffman APRN.CNP - 10/09/2024 12:54 PM ESTAddended by: CAYLA HOFFMAN on: 10/09/2024 12:54 PM Modules accepted: Orders [facility]11-11-2024 Telephone encounter Note* Telephone Encounter - Cayla Hoffman APRN.CNP - 10/09/2024 12:52 PM EST I will send in some clindamycin, if she is not seeing any improvement after 48 hrs she will need kezia seen. Cayla Hoffman APRN.CNP [facility]11-11-2024 Telephone encounter Note* Telephone Encounter - Nasreen Wise RN - 10/09/2024 12:32 PM EST Patient calling stating she has vaginal lumps again. She currently has 5 large ones and 5 small ones that have been present x 2 weeks. Patient states one did burst but now is closed and filled with fluid again. Patient states are is painful and hurts to sit or stand. Patient was last seen in officeon 09/11 for this and was prescribed Keflex. Patient wanting to know if she can be prescribed something again or does she need to be evaluated first. Nasreen Wise RN [facility]10-29-2024 Telephone encounter Note* Telephone Encounter - Lady Pizano - 09/26/2024 8:31 AM EDT Prescription Refill Information The patient has been identified by name and date of : Yes Caregiver verified no other encounters exist for this prescription request: Yes Caregiver confirmed with patient/requestor that no other refills are due, in the near future, with this provider at this time: Yes The last office visit in the department: 06/14/24 Does the patient have a future office visit with this provider/department: Yes Requested Prescriptions Pending Prescriptions Disp Refills ELIQUIS 5 mg tab(s) 180 tablet 3 Sig: Take 1 tablet by mouth two times a day. Lady Peñaloza September 26, 2024 8:31 AM [facility]10-29-2024 Miscellaneous Notes* Telephone Encounter - Lady Pizano - 09/26/2024 8:31 AM EDT Prescription Refill Information The patient has been identified by name and date of : Yes Caregiver verified no other encounters exist for this prescription request: Yes Caregiver confirmed with patient/requestor that no other refills are due, in the near future, with this provider at this time: Yes The last office visit in the department: 06/14/24 Does the patient have a future office visit with this provider/department: Yes Requested Prescriptions Pending Prescriptions Disp Refills ELIQUIS 5 mg tab(s) 180 tablet 3 Sig: Take 1 tablet by mouth two times a day. Lady Peñaloza September 26, 2024 8:31 AM documented in this encounterGenesis Hospital10-15-2024 Telephone encounter Note * Telephone Encounter - Shweta Fagan RN - 09/12/2024 12:11 PM EDT Patient notified of results. Patient verbalizes understanding. Shweta Fagan RN [facility]10-15-2024 Miscellaneous Notes* Telephone Encounter - Shweta Fagan RN - 09/12/2024 12:11 PM EDT Patient notified of results. Patient verbalizes understanding. Shweta Fagan RN * Telephone Encounter - Nasreen Wise RN - 09/12/2024 9:46 AM EDT Left message to call office. Nasreen Wise RN * Telephone Encounter - Cayla Hoffman APRN.CNP - 09/12/2024 9:30 AM EDT Please let the pt know that the vaginal culture was negative. Cayla Hoffman APRN.CNP documented in this encounterGenesis Hospital10-15-2024 Telephone encounter Note * Telephone Encounter - Nasreen Wise RN - 09/12/2024 9:46 AM EDT Left message to call office. Nasreen Wise RN [facility]10-15-2024 Telephone encounter Note* Telephone Encounter - Cayla Hoffman APRN.CNP - 09/12/2024 9:30 AM EDT Please let the pt know that the vaginal culture was negative. Cayla Hoffman APRN.CNP [facility]10-14-2024 Note* Addendum Note - Leila Burt MA - 09/11/2024 3:27 PM EDTAddended by: LEILA BURT on: 09/11/2024 03:27 PM Modules accepted: Orders [facility]10-14-[facility]24 Miscellaneous Notes* Addendum Note - Leila Burt MA - 09/11/2024 3:27 PM EDTAddended by: LEILA BURT on: 09/11/2024 03:27 PM Modules accepted: Orders documented in this encounterGenesis Hospital10-14-2024 History of Present illness Narrative* Cayla Hoffman APRN.CNP - 09/11/2024 2:00 PM EDT Images from the original note were not included. 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 Dolores Villa is a 78 year old female who presents for problem visit vaginal, rectal pain, lump for 3 week(s). HPI: pt states that over the past 3 wks the lumps and pain are getting worst. It hurts to sit, stand, and wipe. She was using witch jordon pad for her hemorrhoids. She has not been using any creams. 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 -Was started on nebulisation and antibiotic at [facility]. -Symtoms better now. CAD (coronary artery disease) s/p PCI/CHRISTELLE to LAD with 2.75x15 Xience dilated to 3.4 Complication of anesthesia nausea, vomiting Controlled type 2 diabetes mellitus without complication, without long-term current use of insulin ([facility]) 10/14/2016 Contusion of shoulder region Diverticulitis of sigmoid colon 09/17/2010 Dupuytren's contracture 11/01/2012 left worse than right Enlargement of lymph nodes Esophageal reflux Esophagitis, unspecified 04/03/2011 Generalized osteoarthrosis, unspecified site History of colonic polyps 09/20/2018 Added automatically from request for surgery [id number] Hypertension Kidney disease Lichen sclerosus Migraine 08/23/2009 Migraine without aura, without mention of intractable migraine without mention of status migrainosus Pain in joint, shoulder region PONV (postoperative nausea and vomiting) Pure hypercholesterolemia Sciatica 10/09/2010 Sebaceous cyst 05/01/2015 Subacute thyroiditis Thoracic aortic aneurysm without rupture ([facility]) 08/26/2019 Trigger thumb of left hand 08/12/2017 Added automatically from request for surgery [id number] Surgery effective Unspecified hypothyroidism PAST SURGICAL HISTORY Procedure Laterality Date BIOPSY BREAST OPEN INCISIONAL 75 Bx of breast, incisional- bilateral CATARACT EXTRACTION HX 2013 COLON SURGERY HX COLONOSCOPY FLX DX W/COLLJ SPEC WHEN PFRMD 03/2004 Colonoscopy COLONOSCOPY FLX DX W/COLLJ SPEC WHEN PFRMD 10/12/2018 Colonoscopy EGD TRANSORAL BIOPSY SINGLE/MULTIPLE 04/03/11 ESOPHAGOGASTRODUODENOSCOPY TRANSORAL DIAGNOSTIC 10/12/2018 EGD EYE SURGERY HX Bilateral cataract surgery/ INCISE FINGER TENDON SHEATH Right 08/22/2018 Right ring trigger finger release INCISE FINGER TENDON SHEATH Left 03/16/2019 Left middle trigger finger release INCISE FINGER TENDON SHEATH Right 01/05/2020 Right middle trigger finger release INCISE FINGER TENDON SHEATH Right 09/05/2020 Right 5th trigger finger release LAMINECTOMY W/O FFD 1/2 VERT SEG LUMBAR 07/18/2018 revision of L4-L5 LAMINECTOMY,LUMBAR October 04, 2015 Surgical Procedure/Date: lumbar laminectomy L4-5/October 04, 2015 LUMPECTOMY/RADIOTHERAPY DIAG MAMM/A10 1974 right NEUROPLASTY &/TRANSPOS MEDIAN NRV CARPAL TUNNE Left 09/14/2019 Left Carpal tunnel relese PAST SURGICAL HISTORY OF 2006 left 2nd finger cyst removed PAST SURGICAL HISTORY OF cyst from face PAST SURGICAL HISTORY OF 08/22/2008 left 5th toe repair hammertoe 4th and 5th PAST SURGICAL HISTORY OF 01/30/11 s/p PCI/CHRISTELLE to LAD with 2.75x15 Xience dilated to 3.4 PAST SURGICAL HISTORY OF 2010 partial colectomy 8 in, for diverticulitis PAST SURGICAL HISTORY OF remote right foot infection, ingrwn toenail PAST SURGICAL HISTORY OF 10/06/2013 left hand 4th digit trigger release REM LESIO TRUNK,ARM,LEG 1.1 -2.0CM 05/30/15 Exc. upper mid back David cyst TONSILLECTOMY PRIMARY/SECONDARY <AGE 12 Tonsillectomy VAGINAL HYSTERECTOMY VAGINAL HYSTERECTOMY UTERUS 250 GM/< 1985 uterus FAMILY HISTORY Problem Relation Age of Onset Heart Mother Stroke Mother Hypertension Mother Hypertension Father Heart Father Stroke Father Allergies Sister Diabetes Sister Hypertension Sister Social History Tobacco Use Smoking status: Never Passive exposure: Never Smokeless tobacco: Never Vaping Use Vaping status: Never Used Substance Use Topics Alcohol use: No Drug use: No Current Outpatient Medications Medication Sig amoxicillin (AMOXIL) 500 mg capsule Take by mouth. Take four tablets by mouth one hour prior to dental procedure rosuvastatin (CRESTOR) 40 mg tablet Take 1 tablet by mouth daily at bedtime. lisinopril (ZESTRIL) 10 mg tablet Take 1 tablet by mouth once daily. glipiZIDE (GLUCOTROL) 5 mg tablet Take 1 tablet (5 mg) by mouth two times a day before meals. metoprolol tartrate, short acting, (LOPRESSOR) 50 mg tablet Take 1 tablet by mouth two times a day. levothyroxine (SYNTHROID) 75 mcg tablet Take 1 tablet by mouth once daily. blood sugar diagnostic (BLOOD GLUCOSE TEST) test strip Test blood sugar(s) 1 time daily and as needed. Dx: Type 2 DM - Uncontrolled E11.9 Insulin: No Blood Pressure Monitor (BLOOD PRESSURE KIT) 1 Each once daily as needed. metFORMIN ER (GLUCOPHAGE XR) 500 mg 24 hr tablet Take 1 tablet by mouth two times a day with meals.As directed omeprazole (PRILOSEC) 20 mg capsule Take 1 capsule by mouth daily before breakfast. 1/2 hr before meal. cholecalciferol (VITAMIN D3) 50 mcg (2,000 unit) tablet Take 1 tablet by mouth once daily. nitroglycerin sublingual (NITROQUICK) 0.4 mg SL tablet Dissolve 1 tablet under the tongue every 5 minutes as needed. As directed for chest pain. IF NO RELIEF CALL 911 isosorbide mononitrate ER (IMDUR) 60 mg 24 hr tablet Take 1 tablet by mouth once daily. Lancets lancets Test blood sugar(s) 1 time daily and as needed. Dx: Type 2 DM - Uncontrolled E11.9 Insulin: No ACETAMINOPHEN/DIPHENHYDRAMINE (TYLENOL PM EXTRA STRENGTH ORAL) Take by mouth every 8 hours as needed. THERAPEUTIC MULTIVITAMIN TAB Take by mouth once daily. cephALEXin (KEFLEX) 500 mg capsule Take 1 capsule by mouth three times a day for 5 days. ELIQUIS 5 mg tab(s) Take 1 tablet by mouth twice daily. No current facility-administered medications for this visit. Allergies As of Date: 09/11/2024 Allergen Noted Reaction ATIVAN [LORAZEPAM] 12/07/2005 Other: See Comments BENZONATATE 04/26/2015 GI Upset HCTZ [HYDROCHLOROTHIAZIDE] 12/10/2008 Intolerance SEASONAL ALLERGIES 12/05/2012 Other: See Comments SULFA (SULFONAMIDE ANTIBIOTICS) 12/07/2005 Unknown Fully Assessed 09/11/2024 REVIEW OF SYSTEMS Expanded ROS: N/A Allergies and current medication updated:Yes SENSITIVE EXAM: The sensitive examination was discussed with the Patient or Patient's Authorized Graduate Internship. As applicable, any other physician, advance practice provider, medical student, or other health professional student that will be observing or involved in the sensitive examination for educational or training purposes was discussed with the Patient or Authorized Graduate Internship. The Patient or Authorized Graduate Internship has agreed to proceed with the sensitive examination. (Sensitive examination includes inspection and/or palpation of the breasts, pelvis, prostate and anorectal regions). EXAM: BP 128/74 Wt 127 lb 12.8 oz (58.0kg) Physical Exam Genitourinary: Genitourinary Comments: Swelling, firmness, red and warm with multiple open blistered areas throughout the vulva area ASSESSMENT/PLAN: 1. Vulvar lesion - ICD9: 624.8, ICD10: N90.89 (primary diagnosis) Will notify patient of test results. - HSV1,2/VZV NAAT LESION - HSV1,2/VZV NAAT LESION 2. Cellulitis of perineum - ICD9: 682.2, ICD10: L03.315 - CEPHALEXIN 500 MG CAPSULE Cayla Hoffman APRN.CNP Medical Decision Making: Problems: Moderate: New problem with uncertain prognosis Data: Unique test(s) ordered: 1 Risk: Moderate: Drug management Medical Decision Making Level: 4 - Moderate documented in [facility]07-17-[facility]24 Instructions* Patient Instructions* Matthew Spencer MD - 06/14/2024 8:41 AM EDT Screening schedule The following prevention plan is recommended: RSV Vaccine(1 - 1-dose 60+ series) Never done Advance Directive Discussion due on 11/29/2023 Behavioral Health Screening Never done Diabetic Foot Exam due on 02/13/2024 Covid-19 Vaccine(2022- season) due on 03/09/2024 WHAT YOU CAN DO TO PREVENT FALLS Many falls can be prevented. By making some changes, you can lower your chances of falling. Four things YOU can do to prevent falls for you* and your caregiver 1. Begin a regular exercise program Exercise is one of the most important ways to lower your chances of falling. It makes you stronger and helps you feel better. Exercises that improve balance and coordination (like William Chi) are the most helpful. Lack of exercise leads to weakness and increases your chances of falling. Ask your doctor or health care provider about the best type of exercise program for you. 2. Have your health care provider review your medicines Have your doctor or pharmacist review all the medicines you take, even [id number] medicines. As you get older, the way medicines work in your body can change. Some medicines, or combinations of medicines, can make you sleepy or dizzy andcan cause you to fall. 3. Have your vision checked Have your eyes checked by an eye doctor at least once a year. You may be wearing the wrong glasses or have a condition like glaucoma or cataracts that limits your vision. Poor vision can increase your chances of falling. 4. Make your home safer About half of all falls happen at home. To make your home safer: Remove things you can trip over (like papers, books, clothes, and shoes) from stairs and places where you walk. Remove small throw rugs or use double-sided tape to keep the rugs from slipping. Keep items you use often in cabinets you can reach easily without using a step stool. Have grab bars put in next to your toilet and in the tub or shower. Use non-slip mats in the bathtub and on shower floors. Improve the lighting in your home. As you get older, you need brighter lights to see well. Hang light-weight curtains or shades to reduce glare. Have handrails and lights put in on all staircases. Wear shoes both inside and outside the house. Avoid going barefoot or wearing slippers. For more information, contact: Centers for Disease Control and Prevention www.cdc.gov/injury * This information may not apply if you have certain medical conditions. documented in this encounterGen[facility]07-17-[facility]24 History of Present illness Narrative* Matthew Spencer MD - 06/14/2024 8:07 AM EDT Images from the original note were not included. This note was created using Supponorriter. Subjective Dolores Villa is a 78 year old female. HISTORY Dolores Villa is a 78 year old lady here for Medicare Annual Wellness Visit, yearly exam and follow up appointment. Blood sugars fasting in AM 87 to 99. Had one 68 when BP was also low at 114/94. Dikd feel was too low. Had vertigo episode last night. Gets spinning sensation not very often. Juliano horse during at night and sometimes gets cramping in back of leg when walking uphill. Walksbackwards if needs. 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 PAST MEDICAL HISTORY Diagnosis Date Abdominal pain, left lower quadrant Abdominal pain, unspecified site 08/22/2010 Arthritis 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 09/20/2018 Added automatically from request for surgery [id number] Barretts esophagus EGD 2010 and 08/25/13 Bronchitis 07/30/2010 Pt was having cough with chest pain . -Was started on nebulisation and antibiotic at [facility]. -Symtoms better now. CAD (coronary artery disease) s/p PCI/CHRISTELLE to LAD with 2.75x15 Xience dilated to 3.4 Complication of anesthesia nausea, vomiting Controlled type 2 diabetes mellitus without complication, without long-term current use of insulin ([facility]) 10/14/2016 Contusion of shoulder region Diverticulitis of sigmoid colon 09/17/2010 Dupuytren's contracture 11/01/2012 left worse than right Enlargement of lymph nodes Esophageal reflux Esophagitis, unspecified 04/03/2011 Generalized osteoarthrosis, unspecified site History of colonic polyps 09/20/2018 Added automatically from request for surgery [id number] Hypertension Kidney disease Lichen sclerosus Migraine 08/23/2009 Migraine without aura, without mention of intractable migraine without mention of status migrainosus Pain in joint, shoulder region PONV (postoperative nausea and vomiting) Pure hypercholesterolemia Sciatica 10/09/2010 Sebaceous cyst 05/01/2015 Subacute thyroiditis Thoracic aortic aneurysm without rupture ([facility]) 08/26/2019 Trigger thumb of left hand 08/12/2017 Added automatically from request for surgery [id number] Surgery effective Unspecified hypothyroidism Current Outpatient Medications Medication Sig levothyroxine (SYNTHROID) 75 mcg tablet Take 1 tablet by mouth once daily. blood sugar diagnostic (BLOOD GLUCOSE TEST) test strip Test blood sugar(s) 1 time daily and as needed. Dx: Type 2 DM - Uncontrolled E11.9 Insulin: No Blood Pressure Monitor (BLOOD PRESSURE KIT) 1 Each once daily as needed. metFORMIN ER (GLUCOPHAGE XR) 500 mg 24 hr tablet Take 1 tablet by mouth two times a day with meals.As directed omeprazole (PRILOSEC) 20 mg capsule Take 1 capsule by mouth daily before breakfast. 1/2 hr before meal. cholecalciferol (VITAMIN D3) 50 mcg (2,000 unit) tablet Take 1 tablet by mouth once daily. nitroglycerin sublingual (NITROQUICK) 0.4 mg SL tablet Dissolve 1 tablet under the tongue every 5 minutes as needed. As directed for chest pain. IF NO RELIEF CALL 911 isosorbide mononitrate ER (IMDUR) 60 mg 24 hr tablet Take 1 tablet by mouth once daily. ELIQUIS 5 mg tab(s) Take 1 tablet by mouth twice daily. Lancets lancets Test blood sugar(s) 1 time daily and as needed. Dx: Type 2 DM - Uncontrolled E11.9 Insulin: No ACETAMINOPHEN/DIPHENHYDRAMINE (TYLENOL PM EXTRA STRENGTH ORAL) Take by mouth every 8 hours as needed. THERAPEUTIC MULTIVITAMIN TAB Take by mouth once daily. amoxicillin (AMOXIL) 500 mg capsule Take by mouth. Take four tablets by mouth one hour prior to dental procedure rosuvastatin (CRESTOR) 40 mg tablet Take 1 tablet by mouth daily at bedtime. lisinopril (ZESTRIL) 10 mg tablet Take 1 tablet by mouth once daily. glipiZIDE (GLUCOTROL) 5 mg tablet Take 1 tablet (5 mg) by mouth two times a day before meals. metoprolol tartrate, short acting, (LOPRESSOR) 50 mg tablet Take 1 tablet by mouth two times a day. No current facility-administered medications for this visit. ALLERGIES Allergen Reactions Ativan [Lorazepam] Other: See Comments family members had MS change Benzonatate GI Upset Hctz [Hydrochloroth* Intolerance headache Seasonal Allergies Other: See Comments Receiving allergy shots. Sulfa (Sulfonamide * Unknown FAMILY HISTORY Problem Relation Age of Onset Heart Mother Stroke Mother Hypertension Mother Hypertension Father Heart Father Stroke Father Allergies Sister Diabetes Sister Hypertension Sister Social History Tobacco Use Smoking status: Never Passive exposure: Never Smokeless tobacco: Never Vaping Use Vaping Use: Never used Substance Use Topics Alcohol use: No Drug use: No Review of Systems Objective BP 125/79 Pulse 67 Temp 36.8 C (98.3 F) Resp 18 Ht 153 cm (5' 0.24) Wt 55.2 kg (121 lb 12.8 oz) SpO2 98% BMI 23.60 kg/m Last 5 Encounter Wt Readings: Date: Wt: 06/14/2024 55.2 kg (121 lb 12.8 oz) 12/16/2023 55.7 kg (122 lb 12.8 oz) 12/13/2023 54.9 kg (121 lb) 11/24/2023 57.6 kg (126 lb 14.4 oz) 11/08/2023 57.2 kg (126 lb) No waist measurement recorded Estimated body mass index is 23.6 kg/m as calculated from the following: Height as of this encounter: 153 cm (5' 0.24). Weight as of this encounter: 55.2 kg (121 lb 12.8 oz). Last 5 Encounter BP Readings: Date: BP: 06/14/2024 125/79 12/16/2023 90/60 12/13/2023 102/58 11/24/2023 144/81 11/08/2023 104/60 Physical Exam Vitals reviewed. Constitutional: Appearance: Normal appearance. She is well-developed. HENT: Head: Normocephalic and atraumatic. Right Ear: Ear canal and external ear normal. Left Ear: Tympanic membrane, ear canal and external ear normal. Nose: Nose normal. Eyes: Conjunctiva/sclera: Conjunctivae normal. Neck: Thyroid: No thyromegaly. Vascular: No carotid bruit. Cardiovascular: Rate and Rhythm: Normal rate and regular rhythm. Pulses: Normal pulses. Heart sounds: Normal heart sounds. No murmur heard. No friction rub. No gallop. Pulmonary: Effort: Pulmonary effort is normal. Breath sounds: Normal breath sounds. Abdominal: General: Bowel sounds are normal. There is no distension. Palpations: Abdomen is soft. There is no mass. Tenderness: There is no abdominal tenderness. Musculoskeletal: General: No deformity. Normal range of motion. Left lower leg: No edema. Lymphadenopathy: Cervical: No cervical adenopathy. Skin: General: Skin is warm and dry. Coloration: Skin is not jaundiced or pale. Findings: No rash. Neurological: General: No focal deficit present. Mental Status: She is alert and oriented to person, place, and time. Cranial Nerves: No cranial nerve deficit. Sensory: No sensory deficit. Motor: No abnormal muscle tone. Coordination: Coordination normal. Deep Tendon Reflexes: Reflexes normal. Psychiatric: Mood and Affect: Mood normal. Behavior: Behavior normal. Thought Content: Thought content normal. Judgment: Judgment normal. Feet:Shoes and socks removed, No deformities, ulcers, calluses, normal distal pulses, and sensitiveto 10 gm monofilament Latest Ref Rng 06/07/2023 07/26/2023 12/13/2023 01/17/2024 06/08/2024 WBC 3.70 - 11.00 k/uL 7.98 9.56 7.98 RBC 3.90 - 5.20 m/uL 4.02 3.65 (L) 3.68 (L) Hemoglobin 11.5 - 15.5 g/dL 12.4 11.2 (L) 11.5 Hematocrit 36.0 - 46.0 % 38.9 36.2 36.4 MCV 80.0 - 100.0 fL 96.8 99.2 98.9 MCH 26.0 - 34.0 pg 30.8 30.7 31.3 MCHC 30.5 - 36.0 g/dL 31.9 30.9 31.6 RDW-CV 11.5 - 15.0 % 14.7 14.9 15.3 (H) Platelet Count 150 - 400 k/uL 266 286 242 MPV 9.0 - 12.7 fL 10.8 11.4 11.7 Neut% % 57.7 59.6 Abs Neut (ANC) 1.45 - 7.50 k/uL 4.62 4.77 Lymph% % 26.6 24.6 Abs Lymph 1.00 - 4.00 k/uL 2.12 1.96 [place]% % 11.7 12.9 Abs [place] <0.87 k/uL 0.93 (H) 1.03 (H) Eosin% % 2.3 1.3 Abs Eosin <0.46 k/uL 0.18 0.10 Baso% % 0.8 0.8 Abs Baso <0.11 k/uL 0.06 0.06 Immature Gran % % 0.9 0.8 IMMATURE GRANS (ABS) <0.10 k/uL 0.07 0.06 NRBC /100 WBC 0.0 0.0 Absolute nRBC <0.01 k/uL <0.01 <0.01 <0.01 DTYPE Auto Auto Protein, Total 6.3 - 8.0 g/dL 7.7 7.4 7.7 Albumin 3.9 - 4.9 g/dL 4.3 4.2 4.2 Calcium 8.5 - 10.2 mg/dL 10.4 (H) 9.5 10.4 (H) 8.9 10.3 (H) Bilirubin, Total 0.2 - 1.3 mg/dL 0.5 0.5 0.4 Alkaline Phosphatase 34 - 123 U/L 59 58 63 AST 13 - 35 U/L 17 24 22 ALT 7 - 38 U/L 11 10 9 Glucose 74 - 99 mg/dL 91 108 (H) 85 236 (H) 82 BUN 7 - 21 mg/dL 17 20 19 24 (H) 17 Creatinine 0.58 - 0.96 mg/dL 1.70 (H) 1.56 (H) 1.45 (H) 1.40 (H) 1.59 (H) Sodium 136 - 144 mmol/L 138 145 (H) 139 133 (L) 143 Potassium 3.7 - 5.1 mmol/L 4.4 3.9 4.7 4.3 4.9 Chloride 98 - 107 mmol/L 103 108 (H) 103 99 106 CO2 22 - 30 mmol/L 26 25 28 25 25 Anion Gap 8 - 15 mmol/L 9 12 8 (L) 9 12 eGFR >=60 mL/min/1.73m 31 (L) 34 (L) 37 (L) 39 (L) 33 (L) Cholesterol, Total <200 mg/dL 114 135 Triglyceride <150 mg/dL 119 102 HDL Cholesterol >39 mg/dL 41 46 Non HDL Cholesterol <130 mg/dL 73 89 Fasting Time hrs 12 13 VLDL Cholesterol <30 mg/dL 24 20 TC:HDL Ratio <5.10 2.78 2.93 LDL Cholesterol <100 mg/dL 49 69 LDL:HDL Ratio <2.54 1.20 1.50 Creatinine, Ur Random (UCRR) 20.0 - 300.0 mg/dL 127.7 91.3 Albumin, Urine Random mg/L 48.1 78.1 Albumin/Creat Ratio <30 mg/g 38 (H) 86 (H) Hemoglobin A1C 4.3 - 5.6 % 6.9 (H) 6.8 (H) 7.3 (H) Estimated Average Glucose mg/dL 151 148 163 TSH 0.270 - 4.200 mIU/L 0.630 1.990 1.390 1.660 Vitamin D 25 Hydroxy 31.0 - 80.0 ng/mL 42.7 47.8 51.3 Free T4 0.9 - 1.7 ng/dL 1.5 1.5 Digoxin 0.6 - 1.2 ng/mL 0.5 (L) Legend: (H) High (L) Low Assessment and Plan--See assessment and plan for other issues addressed below Dolores Villa is a 78 year old female here for a Medicare wellness visit. Medicare Health Risk Assessment General Health Very good Exercise: Minutes/Day 30 min Exercise: Days/Week 3 days Alcohol: Daily Use Never Alcohol: Drinks/Day Patient does not drink Alcohol: 6 or more drinks Never Feel off balance Yes (If bends too far) Concerns: Teeth/Dentures No Concerns: Sexual function No Troubled by feelings None of the above Frequency: Eating healthy diet Several days ADLs requiring help None of the above Safety precautions in home/vehicle Yes Smoke, vape, chews tobacco No Difficulty hearing No Difficulty seeing No Current Providers Specialists: I have reviewed specialist-related care of the patient in the medical record. Outside specialists seen: [facility] Medical/Family history review Reviewed and updated problem list, medical/surgical/family/social history, medications, and allergies. Opioid use review Opioid Medications (last 90 days) 06/14/2024 23:59 Opioid Medications oxycodone HCl 1 mg AT BEDTIME PRN Also takes 1 before PT ORAL (5 mg tab) - Discontinued (Therapy comp) No sig Details Patient-reported medication Prescribed No opioid use on file in the last 90 days Does patient have risk factors for opioid abuse? No Pain overview Current pain concerns and treatment plan reviewed. Patient not currently experiencing pain. Anxiety/Depression screening PHQ-2 Score: 0 (Lower risk for depression) Recommendation: no further intervention at this time Cognitive screening Mini Cog Score: 5 Cognitive screening reviewed and No further action needed (score 3-5). Functional Observation Was the patient's Timed Up & Go test unsteady or ? 12 seconds? No Advance Care Planning Surrogate decision maker and/or advance care plan documented Measurements BP 125/79 Pulse 67 Temp 98.3 Resp 18 Ht 5' .236 (1.53m) Wt 121 lb 12.8 oz (55.2kg) SpO2 98% BMI 23.60 kg/(m^2). Vision Screening: Follows with optometry/ophthalmology Assessment/Plan Medicare annual wellness visit, subsequent (Z.) - Counseled on healthy diet and regular exercise - Fall avoidance information provided - Personalized prevention plan provided Encounter Diagnosis ICD-10-CM 1. Medicare annual wellness visit, subsequent Z 2. Controlled type 2 diabetes mellitus without complication, without long-term current use of insulin (HCC) E11.9 COMPREHENSIVE METABOLIC PANEL HEMOGLOBIN A1C ALBUMIN/CREATININE RATIO, URINE Well controlled. Some lows noted. Would lower glimeride if too many lows 3. Acquired hypothyroidism E03.9 Clinically euthyroid. Stay on same dose 4. Vitamin D deficiency E55.9 VITAMIN D 25 HYDROXY Doing well. Stay on same dose 5. Stage 3b chronic kidney disease (HCC) N18.32 COMPREHENSIVE METABOLIC PANEL COMPLETE BLOOD COUNT Needs to drink more water and have water prior to labs 6. PURE HYPERCHOLESTEROLEM E78.00 rosuvastatin (CRESTOR) 40 mg tablet LIPID PANEL BASIC Stay on statin 7. Coronary artery disease involving [place] heart without angina pectoris, unspecified vessel or lesion type I25.10 lisinopril (ZESTRIL) 10 mg tablet Stable. Continue follow up with [facility] 8. 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 K22.70 Needs to stay on PPI 9. Thoracic aortic aneurysm without rupture, unspecified part (HCC) I71.20 Most recent 2021 studies mentioned borderline enlarged aortic root. Continue follow up with [facility] 10. Encounter for long-term current use of medication Z79.899 COMPREHENSIVE METABOLIC PANEL COMPLETE BLOOD COUNT LIPID PANEL BASIC HEMOGLOBIN A1C MAGNESIUM VITAMIN D 25 HYDROXY ALBUMIN/CREATININE RATIO, URINE Patient here for yearly exam and follow up. Above issues addressed with patient. Patient involved in shared decision making for management of medical issues. History and medications reviewed. Epic updated as needed Refills taken care of and meds adjusted as indicated after reviewed history, exam and labs. Health Maintenance reviewed. Updated record and/or ordered tests as recorded. Encouraged on efforts at healthy diet and regular exercise and adequate sleep. Matthew Spencer MD documented in this encounterGen[facility]05-21-[facility]24 Telephone encounter Note * Telephone Encounter - Zoë Ramos - 04/18/2024 2:15 PM EDT Patient has been identified by name and date of : Yes, Provider Dr. Spencer Date 04-18-24 Time 2:16p Patient phones for refill(s): Requested Prescriptions Pending Prescriptions Disp Refills levothyroxine (SYNTHROID) 75 mcg tablet 90 tablet 3 Sig: Take 1 tablet by mouth once daily. Date of last office visit in primary care: 01/26/2024 Date of next office visit in primary care: 06/14/2024 Pharmacy needs a new script. Patient has 7 days worth left. Please advise. Thank you. Zoë Peñaloza. [facility]05-21-[facility]24 Miscellaneous Notes* Telephone Encounter - Zoë Ramos - 04/18/2024 2:15 PM EDT Patient has been identified by name and date of : Yes, Provider Dr. Spencer Date 04-18-24 Time 2:16p Patient phones for refill(s): Requested Prescriptions Pending Prescriptions Disp Refills levothyroxine (SYNTHROID) 75 mcg tablet 90 tablet 3 Sig: Take 1 tablet by mouth once daily. Date of last office visit in primary care: 01/26/2024 Date of next office visit in primary care: 06/14/2024 Pharmacy needs a new script. Patient has 7 days worth left. Please advise. Thank you. oZë Peñaloza. [facility] Miscellaneous Notes* Telephone Encounter - Bridgette Morton RN - 03/22/2024 1:39 PM EDT Pt returned call and states she thought [facility] told her she needed refills. Called [facility] for pt and they state she still has 2 refills remaining. Last 90 day supply was mailed out to patient on 02/24. Called pt who looked through her medication boxes again and found the new bottle. Pt very apologetic. * Telephone Encounter - Jennifer Singh LPN - 03/22/2024 1:35 PM EDT Left message for Patient to call & speak to a nurse. Omeprazole (Prilosec) was written 12/13/2023 for 90 tablets, 3 refills, sent to [facility]. Patient needs to check with [facility] for refill. Jennifer Singh LPN * Telephone Encounter - Mesha Villanueva - 03/22/2024 1:10 PM EDT Patient has been identified by name and date of : Patient phones for refill(s): Requested Prescriptions Pending Prescriptions Disp Refills omeprazole (PRILOSEC) 20 mg capsule 90 capsule 3 Sig: Take 1 capsule by mouth daily before breakfast. 1/2 hr before meal. Date of last office visit in primary care: 01/26/2024 Date of next office visit in primary care: 06/14/2024 Please advise. Thank you. Mesha Villanueva. [facility] Telephone encounter Note * Telephone Encounter - Bridgette Morton RN - 03/22/2024 1:39 PM EDT Pt returned call and states she thought [facility] told her she needed refills. Called [facility] for pt and they state she still has 2 refills remaining. Last 90 day supply was mailed out to patient on 02/24. Called pt who looked through her medication boxes again and found the new bottle. Pt very apologetic. [facility]04-24-[facility]24 Telephone encounter Note* Telephone Encounter - Jennifer Singh LPN - 03/22/2024 1:35 PM EDT Left message for Patient to call & speak to a nurse. Omeprazole (Prilosec) was written 12/13/2023 for 90 tablets, 3 refills, sent to [facility]. Patient needs to check with [facility] for refill. Jennifer Singh LPN [place] [id number] Telephone encounter Note* Telephone Encounter - Mesha Villanueva - 03/22/2024 1:10 PM EDT Patient has been identified by name and date of : Patient phones for refill(s): Requested Prescriptions Pending Prescriptions Disp Refills omeprazole (PRILOSEC) 20 mg capsule 90 capsule 3 Sig: Take 1 capsule by mouth daily before breakfast. 1/2 hr before meal. Date of last office visit in primary care: 01/26/2024 Date of next office visit in primary care: 06/14/2024 Please advise. Thank you. Mesha Villanueva. [facility]02-28-[facility]24 History of Present illness Narrative* Matthew Spencer MD - 01/26/2024 11:11 AM EST This note was created using [employer]on[employer]. Subjective Dolores Villa is a 78 year old female. Patient presents with: Hospital F/U SUBJECTIVE: Dolores Villa is a 78 year old year old lady here today for follow up appointment for review of medical conditions: s/p shoulder pain. Had stitches out. Still has in sling thing. 4 more weeks. Taking Oxycodone hardly at all during day; just at night. Tylenol as needed. Blood sugars 110s . BP fine. PAST MEDICAL HISTORY Diagnosis Date Abdominal pain, left lower quadrant Abdominal pain, unspecified site 08/22/2010 Arthritis Barretts esophagus EGD 2010 and 08/25/13 Bronchitis 07/30/2010 Pt was having cough with chest pain . -Was started on nebulisation and antibiotic at [facility]. -Symtoms better now. CAD (coronary artery disease) s/p PCI/CHRISTELLE to LAD with 2.75x15 Xience dilated to 3.4 Complication of anesthesia nausea, vomiting Controlled type 2 diabetes mellitus without complication, without long-term current use of insulin ([facility]) 10/14/2016 Contusion of shoulder region Diverticulitis of sigmoid colon 09/17/2010 Dupuytren's contracture 11/01/2012 left worse than right Enlargement of lymph nodes Esophageal reflux Esophagitis, unspecified 04/03/2011 Generalized osteoarthrosis, unspecified site History of colonic polyps 09/20/2018 Added automatically from request for surgery [id number] Hypertension Kidney disease Lichen sclerosus Migraine 08/23/2009 Migraine without aura, without mention of intractable migraine without mention of status migrainosus Pain in joint, shoulder region PONV (postoperative nausea and vomiting) Pure hypercholesterolemia Sciatica 10/09/2010 Sebaceous cyst 05/01/2015 Subacute thyroiditis Thoracic aortic aneurysm without rupture (HCC) 08/26/2019 Trigger thumb of left hand 08/12/2017 Added automatically from request for surgery [id number] Surgery effective Unspecified hypothyroidism Current Outpatient Medications Medication Sig metoprolol tartrate, short acting, (LOPRESSOR) 50 mg tablet Take 50 mg by mouth. amoxicillin (AMOXIL) 500 mg capsule Take by mouth. Take four tablets by mouth one hour prior to dental procedure blood sugar diagnostic (BLOOD GLUCOSE TEST) test strip Test blood sugar(s) 1 time daily and as needed. Dx: Type 2 DM - Uncontrolled E11.9 Insulin: No Blood Pressure Monitor (BLOOD PRESSURE KIT) 1 Each once daily as needed. metFORMIN ER (GLUCOPHAGE XR) 500 mg 24 hr tablet Take 1 tablet by mouth two times a day with meals.As directed omeprazole (PRILOSEC) 20 mg capsule Take 1 capsule by mouth daily before breakfast. 1/2 hr before meal. cholecalciferol (VITAMIN D3) 50 mcg (2,000 unit) tablet Take 1 tablet by mouth once daily. glipiZIDE (GLUCOTROL) 5 mg tablet Take 1 tablet (5 mg) by mouth two times a day before meals. nitroglycerin sublingual (NITROQUICK) 0.4 mg SL tablet Dissolve 1 tablet under the tongue every 5 minutes as needed. As directed for chest pain. IF NO RELIEF CALL 911 isosorbide mononitrate ER (IMDUR) 60 mg 24 hr tablet Take 1 tablet by mouth once daily. ELIQUIS 5 mg tab(s) Take 1 tablet by mouth twice daily. levothyroxine (SYNTHROID) 75 mcg tablet Take 1 tablet by mouth once daily. lisinopril (ZESTRIL) 10 mg tablet Take 1 tablet by mouth once daily. rosuvastatin (CRESTOR) 40 mg tablet Take 1 tablet by mouth daily at bedtime. Lancets lancets Test blood sugar(s) 1 time daily and as needed. Dx: Type 2 DM - Uncontrolled E11.9 Insulin: No ACETAMINOPHEN/DIPHENHYDRAMINE (TYLENOL PM EXTRA STRENGTH ORAL) Take by mouth every 8 hours as needed. aspirin, enteric coated (ASPIRIN, ENTERIC COATED) 81 mg EC tablet Take 1 tablet by mouth once daily. THERAPEUTIC MULTIVITAMIN TAB Take by mouth once daily. oxyCODONE IR (ROXICODONE) 5 mg immediate release tablet Take 1 mg by mouth at bedtime as needed. Also takes 1 before PT No current facility-administered medications for this visit. Review of Systems Objective BP (!) (P) 96/48 (BP Site: Left Arm, BP Position: Sitting, BP Cuff Size: Regular Adult) Pulse (P)72 Wt (P) 56.2 kg (124 lb) BMI (P) 24.22 kg/m Physical Exam Constitutional: Appearance: Normal appearance. HENT: Head: Normocephalic. Eyes: Conjunctiva/sclera: Conjunctivae normal. Cardiovascular: Rate and Rhythm: Normal rate and regular rhythm. Heart sounds: Normal heart sounds. Pulmonary: Effort: Pulmonary effort is normal. Breath sounds: Normal breath sounds. Musculoskeletal: Right lower leg: No edema. Left lower leg: No edema. Comments: Wearing sling for left shoulder Skin: General: Skin is warm and dry. Neurological: General: No focal deficit present. Mental Status: She is alert and oriented to person, place, and time. Psychiatric: Mood and Affect: Mood normal. Behavior: Behavior normal. Thought Content: Thought content normal. Judgment: Judgment normal. Component Latest Ref Rng & Units 12/13/2023 01/17/2024 Protein, Total 6.3 - 8.0 g/dL 7.4 Albumin 3.9 - 4.9 g/dL 4.2 Calcium 8.5 - 10.2 mg/dL 10.4 (H) 8.9 Bilirubin, Total 0.2 - 1.3 mg/dL 0.5 Alkaline Phosphatase 34 - 123 U/L 58 AST 13 - 35 U/L 24 ALT 7 - 38 U/L 10 Glucose 74 - 99 mg/dL 85 236 (H) BUN 7 - 21 mg/dL 19 24 (H) Creatinine 0.58 - 0.96 mg/dL 1.45 (H) 1.40 (H) Sodium 136 - 144 mmol/L 139 133 (L) Potassium 3.7 - 5.1 mmol/L 4.7 4.3 Chloride 97 - 105 mmol/L 103 99 CO2 22 - 30 mmol/L 28 25 Anion Gap 9 - 18 mmol/L 8 (L) 9 eGFR >=60 mL/min/1.73m 37 (L) 39 (L) WBC 3.70 - 11.00 k/uL 9.56 RBC 3.90 - 5.20 m/uL 3.65 (L) Hemoglobin 11.5 - 15.5 g/dL 11.2 (L) Hematocrit 36.0 - 46.0 % 36.2 MCV 80.0 - 100.0 fL 99.2 MCH 26.0 - 34.0 pg 30.7 MCHC 30.5 - 36.0 g/dL 30.9 RDW-CV 11.5 - 15.0 % 14.9 Platelet Count 150 - 400 k/uL 286 MPV 9.0 - 12.7 fL 11.4 Absolute nRBC <0.01 k/uL <0.01 Cholesterol, Total <200 mg/dL 135 Triglyceride <150 mg/dL 102 HDL Cholesterol >39 mg/dL 46 Non HDL Cholesterol <130 mg/dL 89 Fasting Time hrs 13 VLDL Cholesterol <30 mg/dL 20 TC:HDL Ratio <5.10 2.93 LDL Cholesterol <100 mg/dL 69 LDL:HDL Ratio <2.54 1.50 Creatinine, Ur Random (UCRR) 20.0 - 300.0 mg/dL 91.3 Albumin, Urine Random mg/L 78.1 Albumin/Creat Ratio <30 mg/g 86 (H) Hemoglobin A1C 4.3 - 5.6 % 6.8 (H) Estimated Average Glucose mg/dL 148 Vitamin D 25 Hydroxy 31.0 - 80.0 ng/mL 47.8 TSH 0.270 - 4.200 mIU/L 1.390 Free T4 0.9 - 1.7 ng/dL 1.5 Digoxin 0.6 - 1.2 ng/mL 0.5 (L) Assessment and Plan Encounter Diagnosis ICD-10-CM 1. Controlled type 2 diabetes mellitus without complication, without long-term current use of insulin (HCC) E11.9 2. PAF (paroxysmal atrial fibrillation) ([facility]) I48.0 HR controlled without digoxin but BP down. Not symptomatic. Told to call cardiology as needed. Doesnot have HTN 3. Stage 3b chronic kidney disease (HCC) N18.32 Above issues addressed with patient. Patient involved in shared decision making for management of medical issues. History and medications reviewed. Epic updated as needed Refills and/or prescriptions taken care of and meds adjusted as indicated after reviewed history, exam and labs. Health Maintenance reviewed. Updated record and/or ordered tests as recorded. Encouraged on efforts at healthy diet and regular exercise and adequate sleep. Has labs ordered by Dipika for next appointment scheduled in May Matthew Spencer MD [facility] Note Discharge Instructions Thank you for allowing [facility] to assist you with your healthcare needs. The following is importantdischarge information regarding your hospital visit. Your Care Team [facility] Team Your Diagnosis A-fib Anemia Diabetes mellitus HTN (hypertension) Osteoarthritis Renal disease Status post reverse total replacement of left shoulder What to do next Follow Up Appointments Follow Up with MATTHEW SPENCER MD When 01/26/2024 10:00 AM EST Why: This is your post-hospital follow-up appointment with PCP. Where: [address] [place] [address]- Follow Up with [facility] When 01/24/2024 03:45 PM EST Why: This is your first physical therapy appointment. Follow-up as scheduled. Where: [address] [place] [phone] Follow Up with KONG DELONG PA-C, Orthopedic When 01/24/2024 03:15 PM EST Why: This is your post-op appointment. Follow-up as scheduled. Where: [facility] [address] [place] [address]- Follow Up with ELISHA GUTIERREZ When 01/19/2024 09:30 AM EST Why: This is your post-hospital follow-up appointment with cardiology. Where: [facility] [address] [place] [address]- The Following Treatments Have Been Ordered for You Discharge Labs Discharge Outpatient Labwork - Ordered -- CBC and BMP, Anemia and CKD, follow-up within: 2-3 weeks, Results Notify to: MATTHEW SPENCER MD, 01/12/24 7:39:00 EST Discharge Outpatient Labwork - Ordered -- Digoxin level Digoxin level, BMP, Therapeutic monitoring, Your appointment is: 01/19/24 8:00:00 EST, Results Notify to: ELISHA GUTIERREZ, 01/14/24 11:41:00 EST Discharge Radiology No qualifying data available. Other Therapies No qualifying data available. Post Acute Orders No qualifying data available. Someone Will Contact You Regarding These Home Health Referrals No home referrals have been ordered for you. No one will call you. Allergies Ativan (unknown) Percocet benzonatate (unknown) sulfa drugs (unknown) Medications Please ask your primary doctor or pharmacist before taking any other medication not listed, including over the counter drugs, herbal medications, vitamins and or supplements as they may interact withyour home medications. What How Much When Why Instructions Last Dose New acetaminophen (Tylenol) 1,000 Milligram by mouth Three (3) times a day not to exceed 3000 mg/ day New digoxin (digoxin 125 mcg (0.125 mg) oral tablet) 0.5 tab(s) by mouth Every 48 hours Duration: 30 Days STOP PREVIOUS DIG ORDER for 0.125mg Pickup at [facility] New docusate (Colace 100 mg oral capsule) 1 cap by mouth Two (2) times a day New ondansetron (ondansetron 4 mg oral tablet) 1 tab(s) by mouth Every 8 hours as needed for Nausea/Vomiting Pickup at [facility] New oxyCODONE (oxyCODONE 5 mg oral tablet ( IMMEDIATE release )) See instructions Status post reverse total replacement of left shoulder 1-2 tab(s) Oral q4h Pickup at [facility] Unchanged albuterol (albuterol MDI (90 mcg/ inh) CFC free inhalation aerosol) 1 puff(s) by inhalation Every 4 hours as needed for as needed for wheezing Unchanged apixaban (Eliquis 5 mg oral tablet) 1 tab(s) by mouth Two (2) times a day Unchanged aspirin (aspirin 81 mg oral delayed release tablet) 1 tab(s) by mouth Every day Unchanged cholecalciferol (Vitamin D3 50 mcg (2000 intl units) oral capsule) 1 cap by mouth Once a day Unchanged furosemide (furosemide 20 mg oral tablet) Take 0.5-1 tablets by mouth once daily as needed (swelling in legs). as directed Unchanged glipiZIDE (glipiZIDE 5 mg oral tablet) 1 tab(s) by mouth Two (2) times daily before meals Unchanged isosorbide mononitrate (isosorbide mononitrate 60 mg oral tablet, extended release) 1 tab(s) by mouth Once a day (in the morning) Unchanged levothyroxine (levothyroxine 75 mcg (0.075 mg) oral tablet) 1 tab(s) by mouth Once a day Unchanged lisinopril (lisinopril 10 mg oral tablet) 1 tab(s) by mouth Every day Unchanged metFORMIN (MetFORMIN (Eqv-Glucophage XR) 500 mg oral tablet, EXTENDED RELEASE) 1 tab(s) by mouth Every day Unchanged metoprolol (Lopressor 25mg--USE metoprolol tartrate 25 mg oral tablet) 1 tab(s) by mouth Once a day Unchanged nitroGLYcerin (nitroglycerin 0.4 mg sublingual tablet) 1 tab(s) under the tongue Every 5 minutes as needed for as needed for chest pain Unchanged omeprazole (omeprazole 20 mg oral delayed release capsule) 1 cap by mouth Once a day Unchanged rosuvastatin (rosuvastatin 40 mg oral tablet) 1 tab(s) by mouth Every day Pharmacy Information [facility]: [address] [place], [place] [id number] [phone] Please take this list to your next doctor s visit. Bring all medications you take, including over the counter medications, herbals and other supplements with you to your doctor s visit. Patients and families are reminded to discard old lists and to update any records with all medication providers or retail pharmacies. Medication Leaflets digoxin (oral/injection) (di JOX in) Digox, Lanoxin What is the most important information I should know about digoxin? You should not use digoxin if you have a heart rhythm disorder called ventricular fibrillation. What is digoxin? Digoxin is derived from the leaves of a digitalis plant and is used to treat heart failure. Digoxin is also used to treat atrial fibrillation, a heart rhythm disorder of the atrium (the upperchambers of the heart that allow blood to flow into the heart). Digoxin may also be used for purposes not listed in this medication guide. What should I discuss with my healthcare provider before using digoxin? You should not use digoxin if you are allergic to it, or if you have ventricular fibrillation (a heart rhythm disorder of the ventricles, or lower chambers of the heart that allow blood to flow out of the heart). Tell your doctor if you have ever had: a serious heart condition such as 'sick sinus syndrome' or 'AV block' (unless you have a pacemaker); a heart attack; slow heartbeats that have caused you to faint; Qpfdb-Tidecgxyj-Zuggh Syndrome (sudden fast heartbeats); kidney disease; an electrolyte imbalance (such as low levels of calcium, potassium, or magnesium in your blood); a thyroid disorder; or if you have recently been sick with vomiting or diarrhea. Tell your doctor if you are . It is not known whether digoxin will harm an unborn baby. However, having heart failure or atrial fibrillation during may cause complications such as premature or low weight, or risk of in both mother and baby. The benefit of treating heart problems with digoxin may outweigh any risks to the baby. It may not be safe to breast-feed while using this medicine. Ask your doctor about any risk. How should I use digoxin? Follow all directions on your prescription label and read all medication guides or instruction sheets. Use the medicine exactly as directed. Try to take oral digoxin at the same time every day. Measure liquid medicine carefully. Use the dosing syringe provided, or use a medicine dose-measuring device (not a kitchen spoon). Take digoxin regularly even if you feel fine or have no symptoms. Get your prescription refilled before you run out of medicine completely. Digoxin injection is given as a shot into a muscle, or as an infusion into a vein. A healthcare provider will give you this injection if you are unable to take the medicine by mouth. Your blood pressure and heart rate will need to be checked daily. You may need frequent blood tests. Your kidney function may also need to be checked. You should not stop taking digoxin suddenly. Stopping suddenly may make your condition worse. Store at room temperature away from moisture and heat. What happens if I miss a dose? Take the medicine as soon as you can, but skip the missed dose if your next dose is due in less than 12 hours. Do not take two doses at one time. What happens if I overdose? Seek emergency medical attention or call the Poison Help line at . An overdose of digoxin can be fatal. Overdose symptoms may include nausea, vomiting, loss of appetite, and feeling tired. What should I avoid while using digoxin? Avoid becoming overheated or dehydrated during exercise, in hot weather, or by not drinking enough fluids. Digoxin overdose can occur more easily if you are dehydrated. What are the possible side effects of digoxin? Get emergency medical help if you have signs of an allergic reaction: hives; difficulty breathing; swelling of your face, lips, tongue, or throat. Call your doctor at once if you have: nausea, vomiting, diarrhea, stomach pain; fast, slow, or uneven heart rate; a light-headed feeling, like you might pass out; bloody or black, tarry stools; confusion, weakness, hallucinations, unusual thoughts or behavior; breast swelling or tenderness; blurred vision, yellowed vision; or (in babies or children) stomach pain, weight loss, growth delay, behavior changes. Serious side effects may be more likely in older adults and those who are ill or debilitated. Common side effects may include: nausea, diarrhea; feeling weak or dizzy; headache, weakness, anxiety, depression; or rash. This is not a complete list of side effects and others may occur. Call your doctor for medical advice about side effects. You may report side effects to FDA at 8-522-ZMV-1693. What other drugs will affect digoxin? Sometimes it is not safe to use certain medications at the same time. Some drugs can affect your blood levels of other drugs you take, which may increase side effects or make the medications less effective. Many drugs can affect digoxin. This includes prescription and etex-qqe-hgwygbf medicines, vitamins,and herbal products. Not all possible interactions are listed here. Tell your doctor about all yourcurrent medicines and any medicine you start or stop using. Where can I get more information? Your pharmacist can provide more information about digoxin. Remember, keep this and all other medicines out of the reach of children, never share your medicines with others, and use this medication only for the indication prescribed. Every effort has been made to ensure that the information provided by [employer]. ('[employer]') is accurate, up-to-date, and complete, but no guarantee is made to that effect. Drug information contained herein may be time sensitive. [employer] information has been compiled for use by healthcare practitioners and consumers in the [place] and therefore [employer] does not warrant that uses outside of the [place] are appropriate, unless specifically indicated otherwise. [employer] drug information does not endorse drugs, diagnose patients or recommend therapy. [employer] drug information isan informational resource designed to assist licensed healthcare practitioners in caring for their p atients and/or to serve consumers viewing this service as a supplement to, and not a substitute for, the expertise, skill, knowledge and judgment of healthcare practitioners. The absence of a warningfor a given drug or drug combination in no way should be construed to indicate that the drug or drug combination is safe, effective or appropriate for any given patient. [employer] does not assume any responsibility for any aspect of healthcare administered with the aid of information [employer] provides. The information contained herein is not intended to cover all possible uses, directions, precautions, warnings, drug interactions, allergic reactions, or adverse effects. If you have questions about the drugs you are taking, check with your doctor, nurse or pharmacist. Copyright 8271-6318 [employer]. Version: 09.29. Revision Date: 07/02/2023. Education Materials [facility] Post-operative Instructions PLEASE FOLLOW [facility] POST-OP INSTRUCTIONS GIVEN WATCH FOR SIGNS OF INFECTION: call the office ([phone]) if experencing any of the following: (Usually appears 36-48 hours after surgery) Increased temperature (101 degrees Fahrenheit or higher) Redness or swelling Increased uncontrolled pain Foul odor or drainage Calf discomfort Significant swelling Or if having any chest pain, shortness of breath, or difficulty breathing or swallowing call the office or go the nearest Emergency Room. If you have any questions, please call your doctor at the number listed on your follow up instructions. Form: 338A ([id number]) R: 04/04 Additional Information VACCINATE! IT SAVES LIVES! Members of the community who have not yet received the COVID-19 vaccine and would like to receive it can visit one of [facility] vaccine clinics. There are many vaccine clinic locations within the [facility]. For locations and available times, please visit [email or web address] It is important to note that some COVID mobile vaccine clinics are held outdoors and may be canceled in rainy or stormy conditions. To learn more about pediatric vaccinations (ages 5-11), we invite you to visit the [facility] webpage. [email or web address]/[email or web address] [email or web address] learn more about the COVID-19 vaccine, we invite you to visit the CDC website for a list of frequently asked questions.https://www.cdc.gov/coronavirus/2019-ncov/vaccines/faq.html [facility] Patient Portal Access Instructions: Stay connected with your healthcare team and access your personal medical information anytime with the [facility] Patient Portal. Please follow the directions below to create your [employer] account: 1.Access the email account you provided upon registration to the hospital/physician office.2.Look for an invitation email from [facility].3.Open the email and access the invitation link: AcceptInvitation to [facility].4.Fill in the required paredes to create your account. To access your account, visit [email or web address]. Click the blue button labeled Access Patient Portal and then log in with the username and password that you created in the steps above. You will be able to view your test results, lab results, a summary of your visits, upcoming appointments and more. There is also a convenient messaging option where you can send secure messages to your p rovider. In addition, you will have the ability to download any documents or summaries to your computer and/or send the information securely to a physician. Remember that your healthcare information is confidential, so carefully consider who you will allowto register on the [facility] Patient Portal for access to your information. You can also access the [facility] Patient Portal on the [facility] misti. Simply click on Patient Portal and then log into your account. If you would like to receive a full copy of your medical records, please contact the [facility] Medical Records Department by calling [phone], Wednesday through Wednesday between 8 a.m. and 4:30 p.m. HOW TO SAFELY DISPOSE OF PRESCRIPTION MEDICATIONS Please use one of the following methods to safely dispose of your unused medications. 1.Use a drug disposal kit: the drug disposal pouch allows you to safely discard your old and unuseddrugs. Ask your nurse to give you one when you are discharged.2.Visit a local take-back location: Many local pharmacies and police departments have programs that collect old and unwanted prescriptiondrugs. Call your local pharmacy or go to http://[employer]/9Z0Wl5p to find one close to you.3.Make use of household items: Use cat litter or old coffee grounds to dispose medications if other options arenot available. Mix your drugs with these household products, seal them in an airtight container andthrow it into the garbage. Call [facility]: [phone] to be sure your drugs can be disposed of in this way. Some medicines may require a different approach.4.Never flush your medications down the toilet. IF YOU HAVE BEEN PRESCRIBED AN OPIOID FOR PAIN If you have been prescribed an opioid (such as hydrocodone, oxycodone or morphine), it is critical to understand the possible side effects and risks of opioid pain medications. Even when taken as directed, opioids can have several side effects including: Tolerance, meaning you might need to take more of a medication for the same pain relief. Nausea, vomiting and/or constipation. Sleepiness, dizziness, dry mouth, confusion, depression or itching. Physical dependence, meaning you have withdrawal symptoms when a medication is stopped, can develop within a few days. KNOW YOUR RESPONSIBILITIES It is important to know exactly how much and how often to take the opioid pain medications you are prescribed. Never take opioids in higher amounts or more often than prescribed. Do not combine opioids with alcohol or other drugs that cause drowsiness, such as benzodiazepines, also known as benzos, including diazepam and alprazolam, muscle relaxants or sleep aids. Never sell or share prescription opioids. This is illegal. Store opioids in a secure place and out of reach of others (including children, family, friends and visitors). The last page of this document has been signed and retained as a CHART COPY. Signatures Patient Education Materials Marleen Cortez Post-op Instruction 06/2017 ([id number]) Medication Leaflets digoxin (oral/injection) My discharge plan and instructions have been reviewed and explained to me and I,DOLORES VILLA understand my current condition and have read and understand these discharge instructions. I have received a written copy of the plan/instructions. If I have questions, I am aware that I should contact my d ashley. 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 Pain was bothering her with any overhead activities. After failing conservative measures, the patient opted to proceed with a left reverse total shoulder arthroplasty and distal claviculectomy. The patient underwent the above stated procedure on January 11, 2024. Patient did receive perioperative antibiotics. Intraoperatively was uneventful. For details, please see dictated operative note. The patient was placed in thigh-high teds, bilateral SCDs, remained stable in recovery. [facility]. The patient's pain was managed with the use of IV and p.o. pain medications. Patient participated in physical therapy. Doing very well orthopedically however she did develop tachycardia which was managed by medicine. Medicine did have to add in medication involving digoxin. After treatment with this medication her heart rate came back down into the low 100s. Prior to she was having heart rate 140-150 bpm. She does have history of atrialfibrillation in which she is currently on Eliquis. She is followed by retail link analyst at [facility]. Medicine did send in medication for digoxin and digoxin lab orders for levels and repeat BMP. Follow-up with retail link analyst on January 19, 2024 for continued management. Patient was instructed if having any chest pain or complications she is to go to the emergency room over the weekend. She will also follow-up with her primary care physician for her anemia in which she is currently taking iron. While in the hospital with regards to her shoulder. Patient was discharged on postoperative day# 3 to home. Patient was given prescriptions for: Patient will use extra strength Tylenol primarilyfor pain control with oxycodone only use for breakthrough pain. Has had a bowel movement in the hospital and will only use the Colace as needed. She has been resumed on her Eliquis which she takes for her atrial fibrillation. This will cover her for DVT prophylaxis postoperatively. Patient will follow-up with [facility] per postop instructions. Patient has outpatient physical therapy established. She was instructed on range of motion exercises involving the el bow and pendulum exercises at home. She will continue to use the ultra sling. Allergies Ativan (unknown) Percocet benzonatate (unknown) sulfa drugs (unknown) Procedures Left reverse total shoulder arthroplasty and distal claviculectomy Consults Consult to Physician - Ordered -- 01/11/24 12:10:00 JASON DOZIER LISA M APRN-INFORMATION CODER, Routine, ok to see tomorrow, Constant order, Medical physician. Consult to Physician - Ordered -- 01/13/24 12:42:00 SAJAN DOZIER ROXANNE APRN-INFORMATION CODER, Routine, AFIB, uncontrolled rate Objective Vitals and Measurements T: 36.8 C (Oral) TMIN: 36.8 C (Oral) TMAX: 37.6 C (Oral) HR: 103(Monitored) RR: 16 BP: 127/67 SpO2:93% Weight Dosing Weight: 53.7 kg (01/11/24) Dosing Weight: 53.7 kg (01/11/24) Vital signs stable, afebrile SCDs and OCTAVIO hose are in place bilaterally Dressing is clean dry and intact UltraSling fitting appropriately Sensation is intact to axillary, radial, median, and ulnar distribution Motor intact with patient able to make okay sign, cross fingers, and thumbs up Code Status Code Status - Ordered -- 01/11/24 9:20:00 EST, Full Code, Constant Order Admission Date January 11, 2024 Discharge Date January 14, 2024 Medications New Prescription acetaminophen (Tylenol)1,000 Milligram by mouth three (3) times a day. not to exceed 3000 mg/day. digoxin (digoxin 125 mcg (0.125 mg) oral tablet)0.5 tab(s) by mouth every 48 hours for 30 Days. STOP PREVIOUS DIG ORDER for 0.125mg. Refills: 0. docusate (Colace 100 mg oral capsule)1 cap by mouth two (2) times a day. ondansetron (ondansetron 4 mg oral tablet)1 tab(s) by mouth every 8 hours as needed Nausea/Vomiting. Refills: 0. oxyCODONE (oxyCODONE 5 mg oral tablet ( IMMEDIATE release ))1-2 tab(s) Oral q4h; as needed as needed for pain. Refills: 0. Unchanged albuterol (albuterol MDI (90 mcg/inh) CFC free inhalation aerosol)1 puff(s) by inhalation every 4 hours as needed as needed for wheezing. apixaban (Eliquis 5 mg oral tablet)1 tab(s) by mouth two (2) times a day. aspirin (aspirin 81 mg oral delayed release tablet)1 tab(s) by mouth every day. cholecalciferol (Vitamin D3 50 mcg (2000 intl units) oral capsule)1 cap by mouth once a day. furosemide (furosemide 20 mg oral tablet)Take 0.5-1 tablets by mouth once daily as needed (swellingin legs). as directed. glipiZIDE (glipiZIDE 5 mg oral tablet)1 tab(s) by mouth two (2) times daily before meals. isosorbide mononitrate (isosorbide mononitrate 60 mg oral tablet, extended release)1 tab(s) by mouth once a day (in the morning). levothyroxine (levothyroxine 75 mcg (0.075 mg) oral tablet)1 tab(s) by mouth once a day. lisinopril (lisinopril 10 mg oral tablet)1 tab(s) by mouth every day. metFORMIN (MetFORMIN (Eqv-Glucophage XR) 500 mg oral tablet, EXTENDED RELEASE)1 tab(s) by mouth every day. metoprolol (Lopressor 25mg--USE metoprolol tartrate 25 mg oral tablet)1 tab(s) by mouth once a day. nitroGLYcerin (nitroglycerin 0.4 mg sublingual tablet)1 tab(s) under the tongue every 5 minutes as needed as needed for chest pain. omeprazole (omeprazole 20 mg oral delayed release capsule)1 cap by mouth once a day. rosuvastatin (rosuvastatin 40 mg oral tablet)1 tab(s) by mouth every day. Follow Up Follow Up with MATTHEW SPENCER MD When 01/26/2024 10:00 AM EST Why: This is your post-hospital follow-up appointment with PCP. Where: [address] [place] [address]- Follow Up with [facility] When 01/24/2024 03:45 PM EST Why: This is your first physical therapy appointment. Follow-up as scheduled. Where: [address] [place] [phone] Follow Up with KONG DELONG PA-C, Orthopedic When 01/24/2024 03:15 PM EST Why: This is your post-op appointment. Follow-up as scheduled. Where: [facility] [address] [place] [address]- Follow Up with ELISHA GUTIERREZ When 01/19/2024 09:30 AM EST Why: This is your post-hospital follow-up appointment with cardiology. Where: [facility] [address] [place], [place] [id number]- Follow Up Appointments No qualifying data available. Follow Up Labs/Studies Discharge Labs Discharge Outpatient Labwork - Ordered -- CBC and BMP, Anemia and CKD, follow-up within: 2-3 weeks, Results Notify to: MATTHEW SPENCER MD, 01/12/24 7:39:00 EST Discharge Outpatient Labwork - Ordered -- Digoxin level Digoxin level, BMP, Therapeutic monitoring, Your appointment is: 01/19/24 8:00:00 EST, Results Notify to: ELISHA GUTIERREZ, 01/14/24 11:41:00 EST Discharge Studies No Follow-up Studies Discharge Diet No qualifying data available. Discharge Activity No qualifying data available. Condition on Discharge Stable Readmission Risk/Palliative Score LACE Score: 5 (01/11/24 15:54:00) Discharge Disposition Stable Digitally Signed by KONG DELONG PA-C on 01/14/2024 12:43 PM [facility]02-16-2024 Note Date of Service January 14, 2024 Subjective The patient was sitting in bed upon examination. Patient denies any chest pain, shortness of breath, dizziness, lightheadedness, nausea or vomiting, or calf pain. No adverse overnight events. Pain has been controlled on medications. Patient overall is doing very well orthopedically this morning. Patient has been kept additional night due to bated heart rate with underlying atrial fibrillation. Medicine has treated her with digoxin and the heart rate has come down into the low 100s. Medicine feels it is okay for patient to go home today. She has outpatient follow-up with a retail link analyst next week which has been scheduled. Prescription for the digoxin has sent in by medicine. She has no complaints with her shoulder today. Denies any numbness and tingling. Objective Vitals and Measurements T: 36.8 C (Oral) TMIN: 36.8 C (Oral) TMAX: 37.6 C (Oral) HR: 103(Monitored) RR: 16 BP: 127/67 SpO2:93% Intake and Output 7AM Yesterday to 7AM Today Intake and Output (Last 24 hours) Intake Output Stool Count 2.00 Urine Count 2.00 Total Summary Total Intake 0.00 Total Output 0.00 Fluid Balance 0.00 Physical Exam Vital signs stable, afebrile SCDs and OCTAVIO hose are in place bilaterally Dressing is clean dry and intact UltraSling fitting appropriately Sensation is intact to axillary, radial, median, and ulnar distribution Motor intact with patient able to make okay sign, cross fingers, and thumbs up Weight Dosing Weight: 53.7 kg (01/11/24) Dosing Weight: 53.7 kg (01/11/24) Medications Medications (22) Active Scheduled: (12) apixaban 5 mg tablet 5 mg 1 tab(s), Oral, BID atorvastatin 40 mg tablet 80 mg 2 tab(s), Oral, qHS digoxin 0.125 mg tablet 0.125 mg 1 tab(s), Oral, qDay docusate sodium 100 mg Capsule 100 mg 1 cap(s), Oral, BID docusate-senna (Senokot S) 50 mg-8.6 mg Tablet 2 tab(s), Oral, BID famotidine 20 mg tablet 20 mg 1 tab(s), Oral, qDay insulin lispro 100 units/mL Soln (3 mL) Give 0-5 units/dose, Subcutaneous, TIDAC isosorbide mononitrate 60 mg ER tablet 60 mg 1 tab(s), Oral, qAM levothyroxine 75 mcg tablet 75 mcg 1 tab(s), Oral, qDay lisinopril 5 mg tablet 10 mg 2 tab(s), Oral, Daily magnesium hydroxide 8% Suspension 30 mL UD 30 mL, Oral, Daily metoprolol tartrate 25 mg tablet 25 mg 1 tab(s), Oral, q12h Continuous: (0) PRN: (10) acetaminophen 325 mg Tablet 650 mg 2 tab(s), Oral, q4h diphenhydramine 25 mg tablet 25 mg 1 tab(s), Oral, q6h diphenhyDRAMINE 50 mg/mL (1 mL) INJ 25 mg 0.5 mL, IV Push, q6h furosemide 20 mg tablet 10 mg 0.5 tab(s), Oral, qDay metoprolol 1 mg/mL (5mL) vial 5 mg 5 mL, IV Push, q4h ondansetron 2 mg/ 1 mL 2 mL INJ 4 mg 2 mL, IV Push, q8h oxycodone 5 mg tablet (immediate release) 5 mg 1 tab(s), Oral, q4h oxycodone 5 mg tablet (immediate release) 10 mg 2 tab(s), Oral, q4h prochlorperazine 10 mg/2 mL vial 5 mg 1 mL, IV Push, q6h sodium biphosphate-sodium phosphate 19 gm-7 gm Enema 133 mL, Rectal, qDay Lab Results 01/13 05:40 WBC: 14.8 H Hgb: 9.7 L Hct: 28.8 L Platelet: 195 Neutrophil %: 84.5 H Glucose Level: 252 H Sodium Level: 136 Potassium Level: 4.4 BUN: 24 H Creatinine Lvl (s): 1.51 H EKG No qualifying data available. Assessment/Plan A-fib Anemia Diabetes mellitus HTN (hypertension) Osteoarthritis Renal disease Status post reverse total replacement of left shoulder 1. Status post left reverse total shoulder arthroplasty postop day #3 2. Continue pain medications: Tylenol and oxycodone. Patient is not able to use nonsteroidal anti-inflammatories due to anticoagulation and chronic kidney disease. She states that she does occasionally get some nausea with the oxycodone but has tolerated it with antinausea medication. She wants to proceed with the oxycodone as needed for pain. 3. DVT prophylaxis: Patient has resumed her Eliquis today which will cover her for DVT prophylaxis. 4. Physical therapy: Continue with UltraSling at all times. Okay to take off sling for elbow range of motion and pendulum exercises 2-3 times daily. No range of motion of the operative shoulder. Josseline outpatient physical therapy after the 2-week follow-up at [facility] [place]. 5. H & H: yesterday 9.7/28.8, asymptomatic. Patient had preoperative anemia in which her hemoglobin/hematocrit was 11.6/35.0. She was started on ferrous sulfate and folic acid. At this time I discussed with the patient that we will continue the ferrous sulfate and folic acid. She will follow-upwith her primary care provider in 2-3 weeks with repeat lab work. Lab order will be placed on chart. Case management has already scheduled follow-up appointment with primary care physician. I would defer any further treatment to the primary care physician upon follow-up. We discussed constipation with ferrous sulfate and she can use [id number] stool softener as needed. If there are any compl ications she will contact our office. 6. Encouraged incentive spirometry 7. Continue postoperative medical management per medicine: Medicine added digoxin due to patient's heart rate. Her heart rate has been much better in the low 100s. Medication has been sent in for digoxin to pharmacy and patient will be given lab work for digoxin level and BMP. Patient has follow-upappointment next week on January 19, 2024 with cardiology. 8. Postoperative constipation: Resolved, patient has had a bowel movement in the hospital. She has Colace at home that she uses as needed. 9. Disposition: Patient has been doing very well with regards to orthopedic postoperative left reverse total shoulder arthroplasty. Patient's extended stay was secondary to her atrial fibrillation and tachycardia. She was treated by medicine with digoxin and her heart rate has come down into the 100s. Medicine feels it is appropriate for patient to be discharged home today. Patient's daughter is present during evaluation today. We went over her medications and follow-ups. She has follow-up withher retail link analyst next week on January 19, 2024. She will also follow-up with her primary care physician regards to her anemia. She will continue with the ferrous sulfate and folic acid. I would defer any further treatment with the anemia to her primary care physician. We already sent in her orthopedic postoperative medications. She will follow-up per postoperative instructions. Patient has outpatient physical therapy established. She will follow-up for her 2-week postoperative visit with orthopedics with x- rays. Patient was instructed to contact her office with any concerns or questions. I have reviewed the [place] Automated Rx Reporting System (OARRS) report for this patient for refill pattern and other prescriber involvement as part of the appropriate surveillance for the provision ofacute and chronic controlled medications. The report was requested and reviewed on the date of thisentry, and was considered in the prescribing process This dictation was created using voice recognition software. Phonetic and/or grammatical errors mayexist. Digitally Signed by KONG DELONG PA-C on 01/14/2024 12:34 PM [facility]02-16-2024 Note Date of Service 01/14/2024 Chief Complaint Osteoarthritis Subjective Postoperative day #3 for left reverse shoulder. Patient has a history of atrial fibrillation. Upon arrival her heart rates were controlled. Rates increased after surgery. Patient was asymptomatic. 01/13 started on digoxin 0.125 mg daily with improvement in heart rates in the low 100s. Objective Vitals and Measurements T: 37.6 C (Oral) TMIN: 36.6 C (Oral) TMAX: 37.6 C (Oral) HR: 150(Apical) HR: 150(Apical) RR: 16 BP:137/80 SpO2: 95% Intake and Output 7AM Yesterday to 7AM Today Intake and Output (Last 24 hours) Intake Output Stool Count 2.00 Urine Count 2.00 Total Summary Total Intake 0.00 Total Output 0.00 Fluid Balance 0.00 Physical Exam GEN: Appears chronically ill CHEST: Normal S1 and S2. Rhythm is irregularly irregular. Clear to auscultation, without rales, rhonchi, wheezing. ABD: Positive bowel sounds x 4 quads. Soft, nondistended, nontender. EXT: No significant deformity or joint abnormality. No edema. Peripheral pulses intact. NEURO: Sensation grossly intact SKIN: Surgical dressing in place PSYCH: The mental examination revealed the patient was alert and oriented x 4 Weight Dosing Weight: 53.7 kg (01/11/24) Dosing Weight: 53.7 kg (01/11/24) Medications Medications (22) Active Scheduled: (12) apixaban 5 mg tablet 5 mg 1 tab(s), Oral, BID atorvastatin 40 mg tablet 80 mg 2 tab(s), Oral, qHS digoxin 0.125 mg tablet 0.125 mg 1 tab(s), Oral, qDay docusate sodium 100 mg Capsule 100 mg 1 cap(s), Oral, BID docusate-senna (Senokot S) 50 mg-8.6 mg Tablet 2 tab(s), Oral, BID famotidine 20 mg tablet 20 mg 1 tab(s), Oral, qDay insulin lispro 100 units/mL Soln (3 mL) Give 0-5 units/dose, Subcutaneous, TIDAC isosorbide mononitrate 60 mg ER tablet 60 mg 1 tab(s), Oral, qAM levothyroxine 75 mcg tablet 75 mcg 1 tab(s), Oral, qDay lisinopril 5 mg tablet 10 mg 2 tab(s), Oral, Daily magnesium hydroxide 8% Suspension 30 mL UD 30 mL, Oral, Daily metoprolol tartrate 25 mg tablet 25 mg 1 tab(s), Oral, q12h Continuous: (0) PRN: (10) acetaminophen 325 mg Tablet 650 mg 2 tab(s), Oral, q4h diphenhydramine 25 mg tablet 25 mg 1 tab(s), Oral, q6h diphenhyDRAMINE 50 mg/mL (1 mL) INJ 25 mg 0.5 mL, IV Push, q6h furosemide 20 mg tablet 10 mg 0.5 tab(s), Oral, qDay metoprolol 1 mg/mL (5mL) vial 5 mg 5 mL, IV Push, q4h ondansetron 2 mg/ 1 mL 2 mL INJ 4 mg 2 mL, IV Push, q8h oxycodone 5 mg tablet (immediate release) 5 mg 1 tab(s), Oral, q4h oxycodone 5 mg tablet (immediate release) 10 mg 2 tab(s), Oral, q4h prochlorperazine 10 mg/2 mL vial 5 mg 1 mL, IV Push, q6h sodium biphosphate-sodium phosphate 19 gm-7 gm Enema 133 mL, Rectal, qDay Lab Results 01/13 05:40 WBC: 14.8 H Hgb: 9.7 L Hct: 28.8 L Platelet: 195 Neutrophil %: 84.5 H Glucose Level: 252 H Sodium Level: 136 Potassium Level: 4.4 BUN: 24 H Creatinine Lvl (s): 1.51 H Assessment/Plan A-fib Anemia Diabetes mellitus HTN (hypertension) Osteoarthritis Renal disease Status post reverse total replacement of left shoulder Osteoarthritis POD #3 for left reverse shoulder arthroplasty. Management per primary team. Pain is well-controlled. Atrial fibrillation patient has been alternating between sinus tachycardia and atrial fibrillation.Continue digoxin 0.625 mg QOD due to renal function. After receiving first dose of digoxin, heart rates were improved in the low 100s. Patient is being discharged with an order for digoxin level and BMP with results to be faxed to her retail link analyst. She has an appointment with cardiology on 01/19/2024. DVT prophylaxis: Apixaban Labs, diagnostics, and progress notes reviewed as noted in HPI Code Status: Full code Plan of care discussed with patient. All questions answered. Patient verbalizes understanding is agreeable to plan of care. Thank you for requesting our participation in the care of your patient. We will continue to follow during their hospitalization. This dictation was performed using voice recognition software and may include grammatical and/or spelling errors. Time Spent 30 minutes Digitally Signed by EVON MONTOYA on 01/14/2024 11:43 AM [facility]02-15-2024 Note Date of Service 01/13/2024 Chief Complaint Osteoarthritis Subjective Postoperative day #2 for r left reverse shoulder. Patient has a history of atrial fibrillation and rates have been in the 130s to 140s. Upon arrival her heart rates were controlled. Patient has no symptoms. Objective Vitals and Measurements T: 36.8 C (Oral) TMIN: 36.6 C (Oral) TMAX: 36.9 C (Oral) HR: 112(Monitored) RR: 16 BP: 100/62 SpO2:94% Intake and Output 7AM Yesterday to 7AM Today Intake and Output (Last 24 hours) Intake Output Stool Count 5.00 Urine Count 3.00 Emesis Count 1.00 Total Summary Total Intake 0.00 Total Output 0.00 Fluid Balance 0.00 Physical Exam GEN: Appears chronically ill CHEST: Normal S1 and S2. Rhythm is irregularly irregular. Clear to auscultation, without rales, rhonchi, wheezing. ABD: Positive bowel sounds x 4 quads. Soft, nondistended, nontender. EXT: No significant deformity or joint abnormality. No edema. Peripheral pulses intact. NEURO: Sensation grossly intact SKIN: Surgical dressing in place PSYCH: The mental examination revealed the patient was alert and oriented x 4 Weight Dosing Weight: 53.7 kg (01/11/24) Dosing Weight: 53.7 kg (01/11/24) Medications Medications (22) Active Scheduled: (12) apixaban 5 mg tablet 5 mg 1 tab(s), Oral, BID atorvastatin 40 mg tablet 80 mg 2 tab(s), Oral, qHS digoxin 0.125 mg tablet 0.125 mg 1 tab(s), Oral, qDay docusate sodium 100 mg Capsule 100 mg 1 cap(s), Oral, BID docusate-senna (Senokot S) 50 mg-8.6 mg Tablet 2 tab(s), Oral, BID famotidine 20 mg tablet 20 mg 1 tab(s), Oral, qDay insulin lispro 100 units/mL Soln (3 mL) Give 0-5 units/dose, Subcutaneous, TIDAC isosorbide mononitrate 60 mg ER tablet 60 mg 1 tab(s), Oral, qAM levothyroxine 75 mcg tablet 75 mcg 1 tab(s), Oral, qDay lisinopril 5 mg tablet 10 mg 2 tab(s), Oral, Daily magnesium hydroxide 8% Suspension 30 mL UD 30 mL, Oral, Daily metoprolol tartrate 25 mg tablet 25 mg 1 tab(s), Oral, q12h Continuous: (0) PRN: (10) acetaminophen 325 mg Tablet 650 mg 2 tab(s), Oral, q4h diphenhydramine 25 mg tablet 25 mg 1 tab(s), Oral, q6h diphenhyDRAMINE 50 mg/mL (1 mL) INJ 25 mg 0.5 mL, IV Push, q6h furosemide 20 mg tablet 10 mg 0.5 tab(s), Oral, qDay metoprolol 1 mg/mL (5mL) vial 5 mg 5 mL, IV Push, q4h ondansetron 2 mg/ 1 mL 2 mL INJ 4 mg 2 mL, IV Push, q8h oxycodone 5 mg tablet (immediate release) 5 mg 1 tab(s), Oral, q4h oxycodone 5 mg tablet (immediate release) 10 mg 2 tab(s), Oral, q4h prochlorperazine 10 mg/2 mL vial 5 mg 1 mL, IV Push, q6h sodium biphosphate-sodium phosphate 19 gm-7 gm Enema 133 mL, Rectal, qDay Lab Results 01/13 05:40 WBC: 14.8 H Hgb: 9.7 L Hct: 28.8 L Platelet: 195 Neutrophil %: 84.5 H Glucose Level: 252 H Sodium Level: 136 Potassium Level: 4.4 BUN: 24 H Creatinine Lvl (s): 1.51 H Assessment/Plan A-fib Anemia Diabetes mellitus HTN (hypertension) Osteoarthritis Renal disease Status post reverse total replacement of left shoulder Osteoarthritis POD #2 for left reverse shoulder arthroplasty. Management per primary team. Pain is well-controlled. Atrial fibrillation patient has been alternating between sinus tachycardia and atrial fibrillation with rates in the 130s to 140s. Start digoxin 0.125 mg IV today and transition to oral tomorrow. After receiving first dose of digoxin, heart rates were improved in the low 100s. DVT prophylaxis: Apixaban Labs, diagnostics, and progress notes reviewed as noted in HPI Code Status: Full code Plan of care discussed with patient. All questions answered. Patient verbalizes understanding is agreeable to plan of care. Thank you for requesting our participation in the care of your patient. We will continue to follow during their hospitalization. This dictation was performed using voice recognition software and may include grammatical and/or spelling errors. Time Spent 35 minutes Digitally Signed by EVON MONTOYA on 01/13/2024 07:49 PM [facility] [id number] Note Date of Service January 13, 2024 Subjective The patient was sitting in bed upon examination. Patient denies any chest pain, shortness of breath, dizziness, lightheadedness, nausea or vomiting, or calf pain. States last night after eating dinner she had nausea/vomiting. She states she had macaroni and cheese with green beans and gravy. She states she feels significantly better this morning. Her pain has been adequately controlled. She denies any numbness and tingling. Patient was kept overnight per medicine watching her kidney function and she has had tachycardia. Patient has underlying atrial fibrillation in which she takes Eliquis. Does follow retail link analyst with [facility]. They have discussed in the past possible ablation but patient did not want to proceed forward with this. She currently states she has no chest pain or palpitations. She states she never can tell if she is in atrial fibrillation. She has been on telemetry. Objective Vitals and Measurements T: 36.9 C (Oral) TMIN: 36.5 C (Oral) TMAX: 36.9 C (Oral) HR: 141(Monitored) RR: 16 BP: 98/66 SpO2: 93% Intake and Output 7AM Yesterday to 7AM Today Intake and Output (Last 24 hours) Intake Output Stool Count 5.00 Urine Count 4.00 Emesis Count 1.00 Total Summary Total Intake 0.00 Total Output 0.00 Fluid Balance 0.00 Physical Exam Vital signs stable, afebrile. Has been tachycardia ranging from 100 bpm to 141 bpm. She is currently asymptomatic. Telemetry does show atrial fibrillation SCDs and OCTAVIO hose are in place bilaterally Dressing is clean dry and intact UltraSling fitting appropriately Sensation is intact to axillary, radial, median, and ulnar distribution Motor intact with patient able to make okay sign, cross fingers, and thumbs up Weight Dosing Weight: 53.7 kg (01/11/24) Dosing Weight: 53.7 kg (01/11/24) Medications Medications (22) Active Scheduled: (11) apixaban 5 mg tablet 5 mg 1 tab(s), Oral, BID atorvastatin 40 mg tablet 80 mg 2 tab(s), Oral, qHS docusate sodium 100 mg Capsule 100 mg 1 cap(s), Oral, BID docusate-senna (Senokot S) 50 mg-8.6 mg Tablet 2 tab(s), Oral, BID famotidine 20 mg tablet 20 mg 1 tab(s), Oral, qDay insulin lispro 100 units/mL Soln (3 mL) Give 0-5 units/dose, Subcutaneous, TIDAC isosorbide mononitrate 60 mg ER tablet 60 mg 1 tab(s), Oral, qAM levothyroxine 75 mcg tablet 75 mcg 1 tab(s), Oral, qDay lisinopril 5 mg tablet 10 mg 2 tab(s), Oral, Daily magnesium hydroxide 8% Suspension 30 mL UD 30 mL, Oral, Daily metoprolol tartrate 25 mg tablet 25 mg 1 tab(s), Oral, q12h Continuous: (1) Lactated Ringers 1,000 mL 1,000 mL, Intravenous, 100 mL/hr PRN: (10) acetaminophen 325 mg Tablet 650 mg 2 tab(s), Oral, q4h diphenhydramine 25 mg tablet 25 mg 1 tab(s), Oral, q6h diphenhyDRAMINE 50 mg/mL (1 mL) INJ 25 mg 0.5 mL, IV Push, q6h furosemide 20 mg tablet 10 mg 0.5 tab(s), Oral, qDay metoprolol 1 mg/mL (5mL) vial 5 mg 5 mL, IV Push, q4h ondansetron 2 mg/ 1 mL 2 mL INJ 4 mg 2 mL, IV Push, q8h oxycodone 5 mg tablet (immediate release) 5 mg 1 tab(s), Oral, q4h oxycodone 5 mg tablet (immediate release) 10 mg 2 tab(s), Oral, q4h prochlorperazine 10 mg/2 mL vial 5 mg 1 mL, IV Push, q6h sodium biphosphate-sodium phosphate 19 gm-7 gm Enema 133 mL, Rectal, qDay Lab Results 01/13 05:40 WBC: 14.8 H Hgb: 9.7 L Hct: 28.8 L Platelet: 195 Neutrophil %: 84.5 H Glucose Level: 252 H Sodium Level: 136 Potassium Level: 4.4 BUN: 24 H Creatinine Lvl (s): 1.51 H 01/12 05:12 WBC: 14.9 H Hgb: 9.7 L Hct: 28.3 L Platelet: 193 Neutrophil %: 80.5 H Glucose Level: 195 H Sodium Level: 139 Potassium Level: 4.7 BUN: 28 H Creatinine Lvl (s): 1.77 H EKG No qualifying data available. Assessment/Plan A-fib Anemia Diabetes mellitus HTN (hypertension) Osteoarthritis Renal disease Status post reverse total replacement of left shoulder 1. Status post left reverse total shoulder arthroplasty postop day #2 2. Continue pain medications: Tylenol and oxycodone. Patient is not able to use nonsteroidal anti-inflammatories due to anticoagulation and chronic kidney disease. She states that she does occasionally get some nausea with the oxycodone but has tolerated it with antinausea medication. She wants to proceed with the oxycodone as needed for pain. 3. DVT prophylaxis: Patient has resumed her Eliquis today which will cover her for DVT prophylaxis. 4. Physical therapy: Continue with UltraSling at all times. Okay to take off sling for elbow range of motion and pendulum exercises 2-3 times daily. No range of motion of the operative shoulder. Josseline outpatient physical therapy after the 2-week follow-up at [facility] [place]. 5. H & H: 9.7/28.8, asymptomatic. Patient had preoperative anemia in which her hemoglobin/hematocrit was 11.6/35.0. She was started on ferrous sulfate and folic acid. At this time I discussed with the patient that we will continue the ferrous sulfate and folic acid. She will follow-up with her primary care provider in 2-3 weeks with repeat lab work. Lab order will be placed on chart. Case management has already scheduled follow-up appointment with primary care physician. I would defer any further treatment to the primary care physician upon follow-up. We discussed constipation with ferrous sulfate and she can use [id number] stool softener as needed. If there are any complications she will contact our office. 6. Reactive Leukocytosis: currently 14.8, afebrile. Patient did receive decadron intra-operatively.No clinical signs of infection. Preoperative lab work did show mild elevation of white blood cell count at 11.4. 7. Encouraged incentive spirometry 8. Continue postoperative medical management per medicine: Appreciate input from medicine with regards to patient's cardiac history and current tachycardia. Patient clinically is doing very well thismorning and she has no complaints. Patient's kidney function has improved today in which the GFR increased to 33 and the BUN is 24 and creatinine 1.51. She does have chronic kidney disease. Telemetrydoes reveal atrial fibrillation. 9. Postoperative constipation: Discussed with the patient to continue stool softener until first bowel movement. After first bowel movement patient can then take as needed. They were also instructed that if they are not able to have a bowel movement within 3 days they are to contact our office for change of medication. Patient voiced understanding. 10. Disposition: At this time patient's discharge will be based on clearance from medicine. Appreciate input with regards to discharge planning. Patient will most likely require follow-up with a retail link analyst. I did discuss this with the patient. Patient's postoperative medications have already beensent to the pharmacy. She will follow-up per postoperative instructions. She has outpatient physical therapy established. If patient would be discharged home today she is to contact her office if shehas any concerns or questions postoperatively. Again current discharge will be based on medicine when the have deemed her appropriate and safe for discharge. Appreciate your consultation and recommend ations with this patient. Any changes to patient's medications need to be done appreciate medicine's assistance with this. I have reviewed the [place] Automated Rx Reporting System (OARRS) report for this patient for refill pattern and other prescriber involvement as part of the appropriate surveillance for the provision ofacute and chronic controlled medications. The report was requested and reviewed on the date of thisentry, and was considered in the prescribing process This dictation was created using voice recognition software. Phonetic and/or grammatical errors mayexist. Digitally Signed by KONG DELONG PA-C on 01/13/2024 07:59 AM Digitally Signed by KONG DELONG PA-C on 01/13/2024 08:00 AM [facility]02-14-2024 Note Date of Service 01/12/2024 Chief Complaint left shoulder pain Subjective Patient seen and evaluated this morning while sitting on the side of the bed. She states she is having fairly significant pain in her left shoulder right now and needs something for pain. She states otherwise she does not feel bad. She does not feel her heart racing right now. She states when she climbs the stairs at her house she can feel her heart racing until she rests. Right now she is not aware that her heart rate is up. Discussed with patient that her creatinine is mildly elevated this morning from her baseline. It would probably be a good idea for patient to stay another night for us to observe her and make sure her heart rate is better controlled and renal function back to baseline.Patient is agreeable with this plan. Discussed with primary team and they are agreeable with keeping patient another night. Patient denies any fever, chills, cough, shortness of breath, chest pain, abdominal pain, nausea or dysuria. All questions answered. Objective Vitals and Measurements T: 36.5 C (Oral) TMIN: 36.5 C (Oral) TMAX: 37 C (Oral) HR: 112(Apical) RR: 16 BP: 112/72 SpO2: 93% Intake and Output 7AM Yesterday to 7AM Today Intake and Output (Last 24 hours) Intake Oral Intake 360.00 Output Urine Count 6.00 Total Summary Total Intake 360.00 Total Output 0.00 Fluid Balance 360.00 Physical Exam General: No acute distress. Patient is alert, chronically ill-appearing. Skin: No rash. Skin is warm, dry and intact. HEENT: Head is normocephalic, atraumatic. Pupils are equal, round and reactive. Neck: Supple. No lymphadenopathy, thyromegaly. Lungs: Bilaterally clear but diminished without crepitation or wheeze. Unlabored. Heart: Heart is irregular rhythm, tachycardic. No murmurs, gallops or rubs. Abdomen: Abdomen is soft, nontender. Bowels sounds present in all quadrants. Extremities: No clubbing, cyanosis, or edema. Peripheral pulses palpable. No calf tenderness. Leftshoulder surgical dressing is dry and intact. Neurological: Patient is awake and alert to person, place and time. Following simple commands, moving all extremities. Weight Dosing Weight: 53.7 kg (01/11/24) Dosing Weight: 53.7 kg (01/11/24) Medications Medications (22) Active Scheduled: (12) acetaminophen 500 mg Tablet 1,000 mg 2 tab(s), Oral, q6hr apixaban 5 mg tablet 5 mg 1 tab(s), Oral, BID atorvastatin 40 mg tablet 80 mg 2 tab(s), Oral, qHS docusate sodium 100 mg Capsule 100 mg 1 cap(s), Oral, BID docusate-senna (Senokot S) 50 mg-8.6 mg Tablet 2 tab(s), Oral, BID famotidine 20 mg tablet 20 mg 1 tab(s), Oral, qDay insulin lispro 100 units/mL Soln (3 mL) Give 0-5 units/dose, Subcutaneous, TIDAC isosorbide mononitrate 60 mg ER tablet 60 mg 1 tab(s), Oral, qAM levothyroxine 75 mcg tablet 75 mcg 1 tab(s), Oral, qDay lisinopril 5 mg tablet 10 mg 2 tab(s), Oral, Daily magnesium hydroxide 8% Suspension 30 mL UD 30 mL, Oral, Daily metoprolol tartrate 25 mg tablet 25 mg 1 tab(s), Oral, qDay Continuous: (1) Lactated Ringers 1,000 mL 1,000 mL, Intravenous, 100 mL/hr PRN: (9) acetaminophen 325 mg Tablet 650 mg 2 tab(s), Oral, q4h diphenhydramine 25 mg tablet 25 mg 1 tab(s), Oral, q6h diphenhyDRAMINE 50 mg/mL (1 mL) INJ 25 mg 0.5 mL, IV Push, q6h furosemide 20 mg tablet 10 mg 0.5 tab(s), Oral, qDay ondansetron 2 mg/ 1 mL 2 mL INJ 4 mg 2 mL, IV Push, q8h oxycodone 5 mg tablet (immediate release) 5 mg 1 tab(s), Oral, q4h oxycodone 5 mg tablet (immediate release) 10 mg 2 tab(s), Oral, q4h prochlorperazine 10 mg/2 mL vial 5 mg 1 mL, IV Push, q6h sodium biphosphate-sodium phosphate 19 gm-7 gm Enema 133 mL, Rectal, qDay Lab Results 01/12 05:12 WBC: 14.9 H Hgb: 9.7 L Hct: 28.3 L Platelet: 193 Neutrophil %: 80.5 H Glucose Level: 195 H Sodium Level: 139 Potassium Level: 4.7 BUN: 28 H Creatinine Lvl (s): 1.77 H Imaging Results and Diagnostics XR Shoulder Minimum 2 Views Left Result Date: January 11, 2024 Verified By: JONATHAN BROTHERS MD CLINICAL STATEMENT: IMPRESSION: Status post total left shoulder arthroplasty. EKG No qualifying data available. Assessment/Plan 1. Osteoarthritis Chronic, s/p left shoulder arthroplasty. POD # 1. Management per primary team. Continue PO pain medication and antiemetics. Consult to PT/OT to evaluate and treat. Repeat CBC and BMP in the am. 2. A-fib Chronic, rate not controlled. Increase metoprolol to 25 mg PO BID. Resume apixaban today. Monitor patient on telemetry. 3. Diabetes mellitus Chronic. Blood sugar checks before meals and at bedtime. Cover with corrective sliding scale insulin. ADA diet. Blood sugar goal of 180 or less and avoid hypoglycemia. 4. HTN (hypertension) Chronic, controlled. Continue current antihypertensives. SBP goal of 140 or less. 5. Renal disease Chronic. Preop GFR 30 - down slightly to 28 this am. Encourage adequate PO intake today. Check BMP in the am. DVT prophylaxis with apixaban. Code status: Full Code. Labs, diagnostic test and progress notes reviewed as noted in HPI. Plan of care discussed with patient. All questions answered. Patient verbalizes understanding and is agreeable with plan of care. This case was discussed with collaborating physician, Dr. Heaven Uribe. Time Spent 35 minutes spent reviewing past diagnostic tests, reviewing lab results, vital sign trends, medicalhistory, reviewing medications and ordering home medications, examining patient, discussed plan of care with nursing, renal social worker and therapy, collaborating with physician, and documenting in chart. Digitally Signed by FIONA GOMEZ on 01/12/2024 02:33 PM [facility]02-14-2024 Hospital Discharge instructions Patient Education 01/12/2024 07:42:43 5 - [facility] Post-op Instruction 06/2017 ([id number]) [facility] Post-operative Instructions PLEASE FOLLOW [facility] POST-OP INSTRUCTIONS GIVEN WATCH FOR SIGNS OF INFECTION: call the office ([phone]) if experencing any of the following: (Usually appears 36-48 hours after surgery) Increased temperature (101 degrees Fahrenheit or higher) Redness or swelling Increased uncontrolled pain Foul odor or drainage Calf discomfort Significant swelling Or if having any chest pain, shortness of breath, or difficulty breathing or swallowing call the office or go the nearest Emergency Room. If you have any questions, please call your doctor at the number listed on your follow up instructions. Form: [id number]) R: 04/04 Follow Up Care 10/18/2023 11:28:45 With:ELISHA GUTIERREZ Address: [facility] [address] [place] [address]- When:01/19/2024 09:30:00 Comments:This is your post-hospital follow-up appointment with cardiology. With:KONG DELONG PA-C, Orthopedic Address: [facility] [address] [address] [place] [address]- When:01/24/2024 15:15:00 Comments:This is your post-op appointment. Follow-up as scheduled. With:[facility] Address: [address] [place] [address] [place] [address] [phone] When:01/24/2024 15:45:00 Comments:This is your first physical therapy appointment. Follow-up as scheduled. With:MATTHEW SPENCER MD Address: [address] [facility] [place] [address]- When:01/26/2024 10:00:00 Comments:This is your post-hospital follow-up appointment with PCP. [facility] 02-14-2024 Note Date of Service January 12, 2024 Subjective The patient was sitting in bed upon examination. Patient denies any chest pain, shortness of breath, dizziness, lightheadedness, nausea or vomiting, or calf pain. No adverse overnight events. Pain has been controlled on medications. Patient overall is doing well this morning. She states the block has worn off. She does have medical history pertinent for atrial fibrillation. She does see cardiology. There was discussion of ablation however patient did not want to proceed forward with this. She takes Eliquis. She states that she never can tell that she is in atrial fibrillation. She also has underlying chronic kidney disease. On exam today she had no significant complaints this morning. She does wish to try to go home. Objective Vitals and Measurements T: 37 C (Oral) TMIN: 35.85 C TMAX: 37 C (Oral) HR: 141(Apical) RR: 16 BP: 130/84 SpO2: 93% HT: 152.4 cm WT: 53.7 kg BMI: 23.12 Intake and Output 7AM Yesterday to 7AM Today Intake and Output (Last 24 hours) Intake Oral Intake 480.00 Administration Information 1000.00 Output Intra-Op EBL 100.00 Stool Count 0.00 Urine Count 6.00 Emesis Count 0.00 Total Summary Total Intake 1480.00 Total Output 100.00 Fluid Balance 1380.00 Physical Exam Vital signs stable, afebrile. Patient did have couple readings with tachycardia. Patient is asymptomatic. SCDs and OCTAVIO hose are in place bilaterally Dressing is clean dry and intact UltraSling fitting appropriately Sensation is intact to axillary, radial, median, and ulnar distribution Motor intact with patient able to make okay sign, cross fingers, and thumbs up Weight Dosing Weight: 53.7 kg (01/11/24) Dosing Weight: 53.7 kg (01/11/24) Medications Medications (23) Active Scheduled: (13) acetaminophen 500 mg Tablet 1,000 mg 2 tab(s), Oral, q6hr atorvastatin 40 mg tablet 80 mg 2 tab(s), Oral, qHS bisacodyl 5 mg EC tablet 10 mg 2 tab(s), Oral, Once docusate sodium 100 mg Capsule 100 mg 1 cap(s), Oral, BID docusate-senna (Senokot S) 50 mg-8.6 mg Tablet 2 tab(s), Oral, BID famotidine 20 mg tablet 20 mg 1 tab(s), Oral, qDay insulin lispro 100 units/mL Soln (3 mL) Give 0-5 units/dose, Subcutaneous, TIDAC isosorbide mononitrate 60 mg ER tablet 60 mg 1 tab(s), Oral, qAM levothyroxine 75 mcg tablet 75 mcg 1 tab(s), Oral, qDay lisinopril 5 mg tablet 10 mg 2 tab(s), Oral, Daily magnesium hydroxide 8% Suspension 30 mL UD 30 mL, Oral, Daily metoprolol tartrate 25 mg tablet 25 mg 1 tab(s), Oral, qDay ondansetron 2 mg/ 1 mL 2 mL INJ 4 mg 2 mL, IV Push, q8h Continuous: (1) Lactated Ringers 1,000 mL 1,000 mL, Intravenous, 100 mL/hr PRN: (9) acetaminophen 325 mg Tablet 650 mg 2 tab(s), Oral, q4h diphenhydramine 25 mg tablet 25 mg 1 tab(s), Oral, q6h diphenhyDRAMINE 50 mg/mL (1 mL) INJ 25 mg 0.5 mL, IV Push, q6h furosemide 20 mg tablet 10 mg 0.5 tab(s), Oral, qDay ondansetron 2 mg/ 1 mL 2 mL INJ 4 mg 2 mL, IV Push, q8h oxycodone 5 mg tablet (immediate release) 5 mg 1 tab(s), Oral, q4h oxycodone 5 mg tablet (immediate release) 10 mg 2 tab(s), Oral, q4h prochlorperazine 10 mg/2 mL vial 5 mg 1 mL, IV Push, q6h sodium biphosphate-sodium phosphate 19 gm-7 gm Enema 133 mL, Rectal, qDay Lab Results 01/12 05:12 WBC: 14.9 H Hgb: 9.7 L Hct: 28.3 L Platelet: 193 Neutrophil %: 80.5 H Glucose Level: 195 H Sodium Level: 139 Potassium Level: 4.7 BUN: 28 H Creatinine Lvl (s): 1.77 H EKG No qualifying data available. Assessment/Plan A-fib Diabetes mellitus HTN (hypertension) Osteoarthritis Renal disease 1. Status post left reverse total shoulder arthroplasty postop day #1 2. Continue pain medications: Tylenol and oxycodone. Patient is not able to use nonsteroidal anti-inflammatories due to anticoagulation and chronic kidney disease. She states that she does occasionally get some nausea with the oxycodone but has tolerated it with antinausea medication. She wants to proceed with the oxycodone as needed for pain. 3. DVT prophylaxis: Patient will resume her Eliquis today which will cover her for DVT prophylaxis. 4. Physical therapy: Continue with UltraSling at all times. Okay to take off sling for elbow range of motion and pendulum exercises 2-3 times daily. No range of motion of the operative shoulder. Josseline outpatient physical therapy after the 2-week follow-up at [facility] [place]. 5. H & H: 9.7/28.3, asymptomatic. Patient had preoperative anemia in which her hemoglobin/hematocrit was 11.6/35.0. She was started on ferrous sulfate and folic acid. At this time I discussed with the patient that we will continue the ferrous sulfate and folic acid. She will follow-up with her primary care provider in 2-3 weeks with repeat lab work. Lab order will be placed on chart. I would defer any further treatment to the primary care physician upon follow-up. We discussed constipation with ferrous sulfate and she can use [id number] stool softener as needed. If there are any complications she will contact our office. 6. Reactive Leukocytosis: currently 14.9, afebrile. Patient did receive decadron intra-operatively.No clinical signs of infection. 7. Encouraged incentive spirometry 8. Continue postoperative medical management per medicine: Case was discussed with medicine and I would like them to evaluate patient with regards to her atrial fibrillation and occasional tachycardia. As long as patient is cleared medically plan will be for possible discharge home today. 9. Postoperative constipation: Discussed with the patient to continue stool softener until first bowel movement. After first bowel movement patient can then take as needed. They were also instructed that if they are not able to have a bowel movement within 3 days they are to contact our office for change of medication. Patient voiced understanding. 10. Disposition: Plan will be for probable discharge home today as long as patient is medically stable, tolerates therapy, and pain is well-controlled. She would like her medications E scribed to [facility] in [facility]. She has outpatient physical therapy established. Patient will follow-up withthe primary care provider in 2-3 weeks. We will have case management assist her in scheduling this.I would defer any further treatment for the anemia to the primary care provider. Upon discharge shewill contact her office with any concerns or questions. I have reviewed the [place] Automated Rx Reporting System (OARRS) report for this patient for refill pattern and other prescriber involvement as part of the appropriate surveillance for the provision ofacute and chronic controlled medications. The report was requested and reviewed on the date of thisentry, and was considered in the prescribing process This dictation was created using voice recognition software. Phonetic and/or grammatical errors mayexist. Digitally Signed by KONG DELONG PA-C on 01/12/2024 07:39 AM [facility]02-13-2024 Note ORIGINAL EXAMINATION: TWO XRAY VIEWS OF THE LEFT SHOULDER01/11/2024 10:36 am COMPARISON: None. HISTORY: ORDERING SYSTEM PROVIDED HISTORY: Reason for Exam: Status Post Arthroplasty FINDINGS: Patient is status post total reverse shoulder arthroplasty with normal component alignment in seeding in no complicating process. IMPRESSION: Status post total left shoulder arthroplasty. Interpreted by: Jonathan Brothers Preliminary Report By: Jonathan Brothers Electronically signed By Jonathan Brothers Dictated Date: 01/11/2024 12:13:51 PM Prelim Date: 01/11/2024 12:26:30 PM Sign Date: 01/11/2024 12:26:30 PM Ordering Provider: [facility]02-13-2024 Anesthesiology Consult note Patient: DOLORES VILLA Age: 78 years Sex: Female : 1945 Associated Diagnoses: None Author: PARKER GARCIA APRN-RUTH Preoperative Information Anesthesia history Patient's history: negative. Family's history: negative. Health Status Allergies: Allergic Reactions (Selected) Severity Not Documented Ativan- Unknown. Benzonatate- Unknown. Percocet- No reactions were documented. Sulfa drugs- Unknown., Allergies (4) ActiveReaction Ativanunknown benzonatateunknown PercocetNone Documented sulfa drugsunknown Current medications: (Selected) Inpatient Medications Ordered Betadine 10% topical solution: 17.5 mL, mL/hr, Topical (INT), PREOP pharm Bicitra: 30 mL, Oral, PREOP pharm Bolus LR 1000 mL: 1,000 mL, IV Bolus, PREOP pharm Cyklokapron IVPB: 2,000 mg, 20 mL, 0 mL/hr, Topical (INT), PREOP pharm Decadron: 10 mg, 1 mL, IV Push, AsDirected LR 1,000 mL: 20 mL/hr, Intravenous, Stop: 01/11/24 23:59:00 EST Pepcid IV: 20 mg, 2 mL, IV Push, PREOP pharm ceFAZolin: 2 gram(s), 200 mL/hr, IV Piggyback, PREOP pharm vancomycin: 1 gram(s), 20 mL, 250 mL/hr, IV Piggyback, PREOP pharm Documented Medications Documented Eliquis 5 mg oral tablet: 5 mg, 1 tab(s), Oral, BID, 0 Refill(s) Lopressor 25mg--USE metoprolol tartrate 25 mg oral tablet: 25 mg, 1 tab(s), Oral, qDay, 0 Refill(s) MetFORMIN (Eqv-Glucophage XR) 500 mg oral tablet, EXTENDED RELEASE: 500 mg, 1 tab(s), Oral, Daily, 0 Refill(s) Vitamin D3 50 mcg (2000 intl units) oral capsule: 50 mcg, 1 cap(s), Oral, qDay, 60 cap(s), 0 Refill(s) albuterol MDI (90 mcg/inh) CFC free inhalation aerosol: 1 puff(s), Inhalation, q4h, PRN: as needed for wheezing, 18 gram(s), 0 Refill(s) aspirin 81 mg oral delayed release tablet: 81 mg, 1 tab(s), Oral, Daily, 0 Refill(s) furosemide 20 mg oral tablet: Take 0.5-1 tablets by mouth once daily as needed (swelling in legs). as directed glipiZIDE 5 mg oral tablet: 5 mg, 1 tab(s), Oral, BIDAC, 0 Refill(s) isosorbide mononitrate 60 mg oral tablet, extended release: 60 mg, 1 tab(s), Oral, qAM, 30 tab(s), 0 Refill(s) levothyroxine 75 mcg (0.075 mg) oral tablet: 75 mcg, 1 tab(s), Oral, qDay, 30 tab(s), 0 Refill(s) lisinopril 10 mg oral tablet: 10 mg, 1 tab(s), Oral, Daily, 100 tab(s), 0 Refill(s) nitroglycerin 0.4 mg sublingual tablet: 0.4 mg, 1 tab(s), Sublingual, q5min, PRN: as needed for chest pain, 100 tab(s), 0 Refill(s) omeprazole 20 mg oral delayed release capsule: 20 mg, 1 cap(s), Oral, qDay, 30 cap(s), 0 Refill(s) rosuvastatin 40 mg oral tablet: 40 mg, 1 tab(s), Oral, Daily, 100 tab(s), 0 Refill(s), Medications (9) Active Scheduled: (8) ceFAZolin 2 gram(s), IV Piggyback, PREOP pharm citric acid-sodium citrate 334 mg-500 mg/5 mL (30 mL) Marium UD 30 mL, Oral, PREOP pharm dexamethasone 10 mg/mL (1mL) SDV 10 mg 1 mL, IV Push, AsDirected famotidine 20 mg/2 mL vial 20 mg 2 mL, IV Push, PREOP pharm Lactated Ringers Injection 1000 mL * Bolus * 1,000 mL, IV Bolus, PREOP pharm povidone iodine topical 17.5 mL, Topical (INT), PREOP pharm tranexamic acid 2,000 mg 20 mL, Topical (INT), PREOP pharm vancomycin 1 gram(s) 20 mL, IV Piggyback, PREOP pharm Continuous: (1) Lactated Ringers 1,000 mL 1,000 mL, Intravenous, 20 mL/hr PRN: (0) Problem list: Medical A-fib / SNOMED CT 58411494 / Confirmed Hiatal hernia / SNOMED CT 202049937 / Confirmed HTN (hypertension) / SNOMED CT 1364255325 / Confirmed Renal disease / SNOMED CT 213190701 / Confirmed Heart attack / SNOMED CT 22556554 / Confirmed, Active Problems (5) A-fib Heart attack Hiatal hernia HTN (hypertension) Renal disease Histories Past Medical History: No active or resolved past medical history items have been selected or recorded. Family History: No family history items have been selected or recorded. Procedure history: Rotator cuff ([id number]). Comments: 12/17/2023 10:49 Juani Ramos RN right, w/ shoulder scope Stent ([id number]). Appendectomy (612648022). Hysterectomy ([id number]). Tubal ligation ([id number]). Trigger fingers of both hands ([id number]). Comments: 12/17/2023 10:50 Juani Ramos RN x6 Back ([id number]). Comments: 12/17/2023 10:51 Juani Ramos RN x2 Lumpectomy of breast ([id number]). Comments: 12/17/2023 10:51 Juani Ramos RN bilateral Carpal tunnel release ([id number]). Comments: 12/17/2023 10:51 Juani Ramos RN bilateral Social History Social & Psychosocial Habits Alcohol 12/17/2023 Use: Never Substance Abuse 12/17/2023 Use: Never Tobacco 12/17/2023 Tobacco Use: Never (less than 100 in l . Physical Examination No qualifying data available General: Alert and oriented. Airway: Normal temporomandibular joint mobility. Dentition Evaluation: Denies loose/chipped teeth. Respiratory: Lungs are clear to auscultation, Respirations are non-labored. Cardiovascular: Normal rate, Regular rhythm. Neurologic: Alert, Oriented. Review / Management Results review: No qualifying data available , Lab results 01/11/2024 6:36 EST SN - Preop - CTm Pt in SDS Room 01/11/2024 6:25 01/11/2024 6:25 EST Blood Glucose, Capillary 113 mg/dL Allergies Yes Anesthesia Extension Set Applied Yes Landscaping Specialist On Yes Consent Form Signed Yes Patient Dressed In Hospital gown Pre-op Preparation Glasses removed CHG Preoperative Wash/Wipe Night before procedure, Day of procedure Preop Nasal Swab Povidone-Iodine History & Physical Update On Chart Yes History & Physical On Chart Yes Obstructive Sleep Apnea Assess Completed Yes Belongings At Bedside Bra, Coat, Glasses, Shirt, Shoes, Socks, Sweatshirt, Undergarments Personal Home Medications Received Received from patient Belongings Sent Home None Belongings to Security/Secured in Dept None NPO Status Maintained Allergy Band on and Verified Yes Blood Band on and Verified No Patient ID Band on and Verified Yes Implants Verified Yes Pacemaker/AICD Verified Yes Site Verified by Patient/Family Yes Anesthesia Consent Signed Yes Blood Consent Signed Yes Last Fluid Intake 01/10/2024 19:00 Last Food Intake 01/10/2024 19:00 Last Void 01/11/2024 6:38 Patient Cleared for Surgery By MATTHEW SPENCER MD . Assessment and Plan [place] [employer] Anesthesiologists (ASA) physical status classification: Class III. Anesthetic Preoperative Plan Anesthetic technique: General. Maintenance airway: Oral endotracheal tube. Postoperative pain management: interscalene block. Risks discussed: nausea, vomiting, sore throat, dental injury, hypotension, allergic reaction, serious complications. Informed consent: signed by patient. Digitally Signed by PARKER GARCIA PROCESS LABORATORY SPECIALISTSammiCADD OPERATOR on 01/11/2024 06:51 AM [facility]01-19-2024 Note ORIGINAL EXAMINATION: CT OF THE LEFT SHOULDER WITHOUT CONTRAST 12/17/2023 10:20 am TECHNIQUE: CT of the left shoulder was performed without the administration of intravenous contrast. Multiplanar reformatted images are provided for review. Automated exposure control, iterative reconstruction, and/or weight based adjustment of the mA/kV was utilized to reduce the radiation dose to as low as reasonably achievable. COMPARISON: None. HISTORY ORDERING SYSTEM PROVIDED HISTORY: Reason for Exam: Strain of muscle(s) and tendon(s) of the rotator cuff of left shoulder, initial encounter FINDINGS: Bones: No evidence of acute fracture or dislocation. No aggressive appearing osseous abnormality or periostitis. No significant bone loss seen in the glenoid. Soft Tissue: There is supraspinatus and infraspinatus fatty replacement and some atrophy. There is a moderate volume glenohumeral joint effusion. Fluid extends into the subacromial subdeltoid bursa. Otherwise, no focal edema or fluid collection. Joint: There are mild degenerative changes the glenohumeral joint including marginal osteophyte production in some joint space narrowing. There are degenerative changes of the acromioclavicular joint with joint space narrowing and subchondral cyst formation. Calcified body seen in the subcoracoid recess measuring up to 4 mm. ADDITIONAL COMMENTS: Extensive coronary artery calcifications and stents. Otherwise, the included thoracic structures are unremarkable. 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 Loose calcified body seen in the subcoracoid recess of the glenohumeral joint. Moderate volume glenohumeral joint effusion. Fluid extends into the subacromial subdeltoid bursa Extensive coronary artery calcifications and stents. Atrophy of the supraspinatus and infraspinatus musculature is likely indicative of chronic rotator cuff tears I have personally reviewed the images of this examination, agree with resident's findings and interpretation. Interpreted by: Jose Santacruz MD Preliminary Report By: Kin Melendrez Electronically signed By Jose Santacruz MD Dictated Date: 12/17/2023 10:33:25 AM Prelim Date: 12/17/2023 3:32:32 PM Sign Date: 12/17/2023 3:32:32 PM Ordering Provider: [facility]12-27-2023 Instructions* Patient Instructions* Matthew Spencer MD - 11/24/2023 6:01 PM EST Start with half pill Lasix and if that is not enough to get you urinating more to get swelling down, increase to whole 20 tablet. If the 20 mg tablet effective, stay on this till swelling down. If not effective, may increase to 30 to 40 mg to see if this works. If helps in the morning but then more swelling later in the day, may add an afternoon dose by 2 to 3 PM to help keep swelling getting out of legs. Stay hydrated. Keep getting enough protein in diet. Get potassium in your diet. Get labs as discussed. [facility]12[facility] History of Present illness Narrative* Matthew Spencer MD - 11/24/2023 5:26 PM EST Images from the original note were not included. This note was created using [employer]. Subjective Dolores Villa is a 78 year old female. Patient presents with: Same Day Appointment: Bilateral leg swelling x 6 months with last 2 weeks worse SUBJECTIVE: Dolores Villa is a 78 year old year old lady here today for follow up appointment for review of medical conditions. Persistent swelling the past 2 weeks Usually swelling would come and go No changes in diet. Did decrease salt. Has been more sedentary because of problems with shoulder pain No increased SOB. No exertional CP on flat ground. Chronic pain mid chest--no obvious triggers. Can happen going up steps starting since had a fib. Resolves after 5 to 10 minutes. Not every time goes up steps. Having reverse shoulder surgery 01/11/[address] Bender. Noted August pharmacologic stress test was negative for ischemic changes. PAST MEDICAL HISTORY Diagnosis Date Abdominal pain, left lower quadrant Abdominal pain, unspecified site 08/22/2010 Arthritis Barretts esophagus EGD 2010 and 08/25/13 Bronchitis 07/30/2010 Pt was having cough with chest pain . -Was started on nebulisation and antibiotic at [facility]. -Symtoms better now. CAD (coronary artery disease) s/p PCI/CHRISTELLE to LAD with 2.75x15 Xience dilated to 3.4 Complication of anesthesia nausea, vomiting Controlled type 2 diabetes mellitus without complication, without long-term current use of insulin ([facility]) 10/14/2016 Contusion of shoulder region Diverticulitis of sigmoid colon 09/17/2010 Dupuytren's contracture 11/01/2012 left worse than right Enlargement of lymph nodes Esophageal reflux Esophagitis, unspecified 04/03/2011 Generalized osteoarthrosis, unspecified site History of colonic polyps 09/20/2018 Added automatically from request for surgery [id number] Hypertension Kidney disease Migraine 08/23/2009 Migraine without aura, without mention of intractable migraine without mention of status migrainosus Pain in joint, shoulder region PONV (postoperative nausea and vomiting) Pure hypercholesterolemia Sciatica 10/09/2010 Sebaceous cyst 05/01/2015 Subacute thyroiditis Thoracic aortic aneurysm without rupture ([facility]) 08/26/2019 Trigger thumb of left hand 08/12/2017 Added automatically from request for surgery [id number] Surgery effective Unspecified hypothyroidism Current Outpatient Medications Medication Sig glipiZIDE (GLUCOTROL) 5 mg tablet Take 1 tablet (5 mg) by mouth two times a day before meals. nitroglycerin sublingual (NITROQUICK) 0.4 mg SL tablet Dissolve 1 tablet under the tongue every 5 minutes as needed. As directed for chest pain. IF NO RELIEF CALL 911 isosorbide mononitrate ER (IMDUR) 60 mg 24 hr tablet Take 1 tablet by mouth once daily. ELIQUIS 5 mg tab(s) Take 1 tablet by mouth twice daily. amoxicillin (AMOXIL) 500 mg capsule Take by mouth. Take four tablets by mouth one hour prior to dental procedure levothyroxine (SYNTHROID) 75 mcg tablet Take 1 tablet by mouth once daily. metoprolol tartrate, short acting, (LOPRESSOR) 25 mg tablet Take 1 tablet by mouth twice daily. lisinopril (ZESTRIL) 10 mg tablet Take 1 tablet by mouth once daily. Blood Pressure Monitor (BLOOD PRESSURE KIT) 1 Each once daily as needed. rosuvastatin (CRESTOR) 40 mg tablet Take 1 tablet by mouth daily at bedtime. metFORMIN ER (GLUCOPHAGE XR) 500 mg 24 hr tablet Take 1 tablet by mouth twice daily with meals. As directed Lancets lancets Test blood sugar(s) 1 time daily and as needed. Dx: Type 2 DM - Uncontrolled E11.9 Insulin: No blood sugar diagnostic (BLOOD GLUCOSE TEST) test strip Test blood sugar(s) 1 time daily and as needed. Dx: Type 2 DM - Uncontrolled E11.9 Insulin: No omeprazole (PRILOSEC) 20 mg capsule Take 1 capsule by mouth daily before breakfast. 1/2 hr before meal. cholecalciferol (VITAMIN D3) 50 mcg (2,000 unit) tablet Take 1 tablet by mouth once daily. ACETAMINOPHEN/DIPHENHYDRAMINE (TYLENOL PM EXTRA STRENGTH ORAL) Take by mouth every 8 hours as needed. aspirin, enteric coated (ASPIRIN, ENTERIC COATED) 81 mg EC tablet Take 1 tablet by mouth once daily. THERAPEUTIC MULTIVITAMIN TAB Take by mouth once daily. No current facility-administered medications for this visit. OBJECTIVE: Review of Systems Objective BP 144/81 Pulse 74 Temp 37 C (98.6 F) Resp 18 Wt 57.6 kg (126 lb 14.4 oz) SpO2 99% BMI 24.78 kg/m Last 5 Encounter Wt Readings: Date: Wt: 11/24/2023 57.6 kg (126 lb 14.4 oz) 11/08/2023 57.2 kg (126 lb) 07/21/2023 55.8 kg (123 lb) 06/14/2023 54 kg (119 lb) 02/12/2023 54.9 kg (121 lb) No waist measurement recorded Estimated body mass index is 24.78 kg/m as calculated from the following: Height as of 09/20/18: 152.4 cm (5'). Weight as of this encounter: 57.6 kg (126 lb 14.4 oz). Last 5 Encounter BP Readings: Date: BP: 11/24/2023 144/81 11/08/2023 104/60 07/21/2023 108/62 06/14/2023 102/58 02/12/2023 108/62 Physical Exam Musculoskeletal: Right lower le+ Pitting Edema present. Left lower le+ Pitting Edema present. Legs: Assessment and Plan Encounter Diagnosis ICD-10-CM 1. Swelling of limb M79.89 US LEG VEIN DVT [facility] DISCONTINUED: furosemide (LASIX) 20 mg tablet Discussed management. Try Lasix, as well as leg elevation. Support stockings. Further evaluation and treatment as indicated 2. Popliteal fullness R29.898 US LEG VEIN DVT [facility] Check for Wallace's cyst. Refer to orhot as needed Above issues addressed with patient. Patient involved in shared decision making for management of medical issues. History and medications reviewed. Epic updated as needed Refills and/or prescriptions taken care of and meds adjusted as indicated after reviewed history, exam and labs. Health Maintenance reviewed. Updated record and/or ordered tests as Further evaluation and treatment as indicated. Matthew Spencer MD documented in this encounterGen[facility]12-11-2023 Miscellaneous Notes* Telephone Encounter - Tenisha Gamble LPN - 11/08/2023 1:13 PM EST Spoke with [facility] and patient is update with appointments and was told they just need the form to complete the clearance. * Telephone Encounter - Henrique Garcia APRN.CNP - 11/08/2023 12:51 PM EST Patient is planning to have shoulder surgery with [facility] in December. She sees [facility], can we see if they are needing to see her in their office to clear her for that or will theyclear her without an appointment? We have some time to get her scheduled if they need to see her inthe office, just trying to coordinate things for her. documented in this encounterGen[facility]12-11-2023 History of Present illness Narrative* Henrique Garcia APRN.AARON - 11/08/2023 10:52 AM EST SUBJECTIVE Dolores Villa is a 78 year old female here today for a check up on her medical problems. Chief Complaint Patient presents with: F/U 6 months Pre-Op Exam: Dr. Bender for shoulder replacement of left shoulder HPI Dolores Villa is a 78 year old female. Here today for her 6 month follow up. Planning to have shoulder surgery with Bayron cortez at [facility] in December. She does see cardiology with [facility]. Saw Juan Villarreal last. Recent stress test was stable per patient. She is on Eliquis for a fib. History of thoracic aortic aneurysm. ECHO from 2019 showed mild increase in mid ascending aorta at 3.9 cm (ASI 2.4) compared to 3.6 cm in 2017. She is ready to get surgery out of the way. Otherwise she feels pretty well. Her medications were reviewed today and her list is now up to date. Medications Current Outpatient Medications Medication Sig isosorbide mononitrate ER (IMDUR) 60 mg 24 hr tablet Take 1 tablet by mouth once daily. ELIQUIS 5 mg tab(s) Take 1 tablet by mouth twice daily. amoxicillin (AMOXIL) 500 mg capsule Take by mouth. Take four tablets by mouth one hour prior to dental procedure levothyroxine (SYNTHROID) 75 mcg tablet Take 1 tablet by mouth once daily. metoprolol tartrate, short acting, (LOPRESSOR) 25 mg tablet Take 1 tablet by mouth twice daily. lisinopril (ZESTRIL) 10 mg tablet Take 1 tablet by mouth once daily. rosuvastatin (CRESTOR) 40 mg tablet Take 1 tablet by mouth daily at bedtime. metFORMIN ER (GLUCOPHAGE XR) 500 mg 24 hr tablet Take 1 tablet by mouth twice daily with meals. As directed glipiZIDE (GLUCOTROL) 5 mg tablet Take 1 tablet by mouth twice daily before meals. omeprazole (PRILOSEC) 20 mg capsule Take 1 capsule by mouth daily before breakfast. 1/2 hr before meal. cholecalciferol (VITAMIN D3) 50 mcg (2,000 unit) tablet Take 1 tablet by mouth once daily. ACETAMINOPHEN/DIPHENHYDRAMINE (TYLENOL PM EXTRA STRENGTH ORAL) Take by mouth every 8 hours as needed. aspirin, enteric coated (ASPIRIN, ENTERIC COATED) 81 mg EC tablet Take 1 tablet by mouth once daily. THERAPEUTIC MULTIVITAMIN TAB Take by mouth once daily. nitroglycerin sublingual (NITROQUICK) 0.4 mg SL tablet Dissolve 1 tablet under the tongue every 5 minutes as needed. As directed for chest pain. IF NO RELIEF CALL 911 Blood Pressure Monitor (BLOOD PRESSURE KIT) 1 Each once daily as needed. Lancets lancets Test blood sugar(s) 1 time daily and as needed. Dx: Type 2 DM - Uncontrolled E11.9 Insulin: No blood sugar diagnostic (BLOOD GLUCOSE TEST) test strip Test blood sugar(s) 1 time daily and as needed. Dx: Type 2 DM - Uncontrolled E11.9 Insulin: No No current facility-administered medications for this visit. ALLERGIES Allergen Reactions Ativan [Lorazepam] Other: See Comments family members had MS change Benzonatate GI Upset Hctz [Hydrochloroth* Intolerance headache Seasonal Allergies Other: See Comments Receiving allergy shots. Sulfa (Sulfonamide * Unknown ACTIVE PROBLEM LIST Cad (Coronary Artery Disease) - 07/30/2010 (B priority) Comment: Patient presents with unstable angina. However, CP is different from previous episodes of angina. First set of cardiac biomarkers is negative. ECG does not demonstrate ischemia. -heparin drip -Wean off of Nitro drip -Symptom free -Will proceed with [facility] today Mixed Hyperlipidemia - 06/15/2006 (C priority) Comment: Cont home regimen of rosuvastatin Hypothyroidism (C priority) Comment: Cont home regimen of levothyroxine Occlusion and Stenosis of Carotid Artery Without Mention of Cerebral Infarction - 01/03/2010 (D priority) Comment: 70% stenosis of rt carotid No strokes, TIAs, etc History of Left Heart Catheterization ([facility]) - 02/12/2023 Paf (Paroxysmal Atrial Fibrillation) ([facility]) - 02/12/2023 Essential (Primary) Hypertension - 03/02/2022 Pure Hypercholesterolemia - 03/02/2022 Hypertensive Kidney Disease With Stage 3a Chronic Kidney Disease ([facility]) - 09/26/2021 Thoracic Aortic Aneurysm Without Rupture ([facility]) - 08/26/2019 Chronic pain of left knee--since contusion - 10/06/2018 Dial's Esophagus Without Dysplasia - 09/20/2018 Comment: Added automatically from request for surgery [id number] Trigger Finger, Right Ring Finger - 08/08/2018 Comment: Added automatically from request for surgery [id number] Type 2 Diabetes Mellitus With Stage 3a Chronic Kidney Disease, Without Long-Term Current Use of Insulin ([facility]) - 10/14/2016 Stage 3a chronic kidney disease ([facility]) - 10/14/2016 Comment: In past year has had eGFR over 60; ranging 50 to over 60 History of Lumbar Laminectomy - 10/21/2015 Bulge of Lumbar Disc Without Myelopathy - 10/21/2015 Thoracic and Lumbosacral Neuritis - 02/07/2013 Trigger Ring Finger of Left Hand - 12/19/2012 Dupuytren's Contracture - 11/01/2012 Comment: left worse than right Postsurgical Percutaneous Transluminal Coronary Angioplasty Status - 02/04/2011 Presence of Stent in Coronary Artery - 01/27/2011 Diverticulitis of Colon - 08/22/2010 Gerd (Gastroesophageal Reflux Disease) - 11/13/2009 Pain in Joint, Shoulder Region - 09/17/2008 Other Hammer Toe (Acquired) - 07/23/2008 Social History Tobacco Use Smoking status: Never Smokeless tobacco: Never Vaping Use Vaping Use: Never used Substance Use Topics Alcohol use: No Drug use: No Review of Systems Respiratory: Negative. Cardiovascular: Negative. Musculoskeletal: Positive for arthralgias. OBJECTIVE BP 104/60 Pulse 89 Wt 126 lb (57.2kg) SpO2 96% Physical Exam Vitals and nursing note reviewed. Constitutional: General: She is awake. She is not in acute distress. Appearance: Normal appearance. She is well-developed and well-groomed. She is not ill-appearing, toxic-appearing or diaphoretic. HENT: Head: Normocephalic. Right Ear: External ear normal. Left Ear: External ear normal. Nose: Nose normal. Eyes: General: Vision grossly intact. Conjunctiva/sclera: Conjunctivae normal. Pupils: Pupils are equal, round, and reactive to light. Neck: Vascular: No JVD. Trachea: Trachea normal. Cardiovascular: Rate and Rhythm: Normal rate. Rhythm irregular. Pulses: Normal pulses. Heart sounds: Normal heart sounds. No murmur heard. Pulmonary: Effort: Pulmonary effort is normal. No accessory muscle usage, prolonged expiration or respiratory distress. Breath sounds: Normal breath sounds. Musculoskeletal: Cervical back: Neck supple. Skin: General: Skin is warm and dry. Capillary Refill: Capillary refill takes less than 2 seconds. Neurological: General: No focal deficit present. Mental Status: She is alert and oriented to person, place, and time. Mental status is at baseline. Psychiatric: Attention and Perception: Attention and perception normal. Mood and Affect: Mood and affect normal. Speech: Speech normal. Behavior: Behavior normal. Behavior is cooperative. Thought Content: Thought content normal. Cognition and Memory: Cognition and memory normal. Judgment: Judgment normal. ASSESSMENT/PLAN: 1. Chronic shoulder pain, unspecified laterality - ICD9: 719.41, 338.29, ICD10: M25.519, G89.29 (primary diagnosis) Planning for shoulder surgery in December. 2. PAF (paroxysmal atrial fibrillation) (HCC) - ICD9: 427.31, ICD10: I48.0 Stable, rate controlled and anticoagulated. We can reach out to cardio to see if she needs seen forthem to clear her. 3. Thoracic aortic aneurysm without rupture, unspecified part (HCC) - ICD9: 441.2, ICD10: I71.20 See #2 4. Acquired hypothyroidism - ICD9: 244.9, ICD10: E03.9 - Instructed patient on importance of taking on an empty stomach either first thing in the morning or at bedtime. 5. Mixed hyperlipidemia - ICD9: 272.2, ICD10: E78.2 - Counseled on healthy diet and regular exercise 6. Hypertensive kidney disease with stage 3a chronic kidney disease (HCC) - ICD9: 403.90, 585.3, ICD10: I12.9, N18.31 Stable. 7. Type 2 diabetes mellitus with stage 3a chronic kidney disease, without long- term current use of insulin (HCC) - ICD9: 250.40, 585.3, ICD10: E11.22, N18.31 - Control undetermined, due for labs - Continue current medications - Counseled on healthy diet and regular exercise 8. Encounter for immunization - ICD9: V03.89, ICD10: Z23 - PFIZER-BIONTECH COVID-19 VACCINE (2022- SEASON) AGE 12+ YR - INFLUENZA VACCINE, PRSV FREE, AGE 65+ YR, HIGH DOSE, QUADRIVALENT (FLUZONE HIGH-DOSE) Portions of this note have been entered by ancillary staff. I have reviewed and when necessary edited, so that they are an adequate record of my encounter with this patient Please note that parts of this document were created using voice recognition software and therefore may contain grammatical errors. Patient verbalizes understanding of instructions from today's visit and in agreement with treatmentplan. Questions answered. Agrees to call the office if questions, concerns of issues with acute symptoms not improving or if they worsen. See diagnoses and orders for additional plan(s). Allergies and medications were reviewed, list was updated, and refills given if needed. Past medical, surgical, social, and family history reviewed and updated as appropriate. Encouraged proper diet & exercise as well as compliance with taking medications. Age- appropriate health preventative measures were discussed. Return in about 5 weeks (around 12/13/2023) for pre-op. Henrique Garcia APRN-AARON documented in this encounterGenesis Hospital11-06-2023 Miscellaneous Notes* Telephone Encounter - Dipika Hernandez APRN.CNS - 10/04/2023 3:55 PM EST noted * Telephone Encounter - Bridgette Morton RN - 10/04/2023 1:58 PM EST Baldemar calling from [employer]. When asked, he answers that he is a pharmacy sales representative. He is very difficult to understand on the phone and was very concerned that I remember his name. Stating over and over again that he needs pt's last office visit note faxed to him and he needs it right away. This is to help the patient get her Dc. Told him that I would not be able to do it right away and he was very persistent and then said he needed it by 215 at the latest. Seemed to get very upset when I told him I wasn't sure I could do it by then. Called pt and asked her if she had contacted [employer]. Pt states no that they contacted her and having been calling her frequently. And pt told them that because she isn't on insulin, her insurance will not cover it. She states they have been trying to get her to get other things as well. Pt is okay if we fax the OV note to them. Attempted to call Baldemar backto ask him which [employer]'s he works at. The callback # is different than the number he gave. That number does not ring to a [employer] and another man who was difficult to understand as well stated Baldemar was busy. When asked what [employer]'s Baldemar was calling from, he couldn't give that answer. He just kept asking for the patients name. Called pt again and let her know that all of this seemed odd and to not give any information to them. She verbalizes understanding. Fax # Baldemar gave to [phone] does not come up as a real fax number documented in this encounterGenesis Hospital11-01-2023 Miscellaneous Notes* Telephone Encounter - Henirque Garcia APRN.CNP - 09/29/2023 1:27 PM EDT Script sent. * Telephone Encounter - Natacha Theodore LPN - 09/29/2023 12:56 PM EDT Patient does want the Dc. Patient would prefer that it go to [facility] in [place]. Will only getif it is 100% covered. * Telephone Encounter - Henrique Garcia APRN.CNP - 09/29/2023 12:26 PM EDT Can we check with the patient if she needs orders for a Dc? * Telephone Encounter - Shweta Fagan RN - 09/28/2023 4:25 PM EDT Baldemar calling from [employer] calling to see if fax was received and if it can be faxed back. Phone number given does not go to [employer]. Shweta Fagan RN * Telephone Encounter - Natacha Theodore LPN - 09/24/2023 11:08 AM EDT [employer] is going to be faxing an order for a dc. Asking that provider please review and fax back early next week. documented in this encounterGenesis Hospital11-01-2023 Evaluation note* Diagnosis Type 2 diabetes mellitus with stage 3a chronic kidney disease, without long-term current use of insulin (HCC)- Primary documented in this encounter [facility]10-25[facility]23 Miscellaneous Notes* Telephone Encounter - Henrique Garcia APRN.CNP - 09/22/2023 3:27 PM EDT noted * Telephone Encounter - Alana Rascon LPN - 09/22/2023 1:32 PM EDT Patient calling said she has had 4 falls in past few months. She is seeing Dr [facility] office. She is having PT at that facility and will have MRI of her left shoulder soon. She wanted PCP to be aware. documented in this encounterGenesis Hospital09-22-2023 Miscellaneous Notes* Telephone Encounter - Krysta Gonzales RN - 08/20/2023 9:21 AM EDT Faxed recent lab results to [facility], per patient request. documented in this encounterGenesis Hospital09-01-2023 Miscellaneous Notes* Telephone Encounter - Henrique Garcia APRN.CNP - 07/30/2023 4:56 PM EDT Please call and let her know script sent. * Telephone Encounter - Bridgette Morton RN - 07/30/2023 3:34 PM EDT Pt states having some dental work done on 08/30/23 and needs her Amoxicillin prescription filled so she can take the 4 tablets prior to the procedure. Call pt when order placed. Patient has been identified by name and date of : Yes, Provider Dr. Spencer Date 07/30/23 Time 1535 Patient phones for refill(s): Requested Prescriptions Pending Prescriptions Disp Refills amoxicillin (AMOXIL) 500 mg capsule 4 capsule 0 Sig: Take by mouth. Take four tablets by mouth one hour prior to dental procedure Date of last office visit in primary care: 06/14/23 Next OV 12/17/23 Last 2 Encounter Wt Readings: Date: Wt: 07/21/2023 55.8 kg (123 lb) 06/14/2023 54 kg (119 lb) Previous labs/tests for medication: Not applicable Please advise. Thank you. Bridgette Morton RN documented in this encounterGenesis Hospital08-23-2023 History of Present illness Narrative* Lotus Parker RT(R) - 07/21/2023 9:10 AM EDT Radiology Service Progress Note PATIENT NAME: Dolores Villa DATE OF SERVICE: July 21, 2023 TIME: 9:16 AM PATIENT IDENTITY VERIFICATION COMPLETED USING TWO (2) IDENTIFIERS: Name and Date of confirmedby patient verbally. FALL SCREENING: Has the patient had 2 falls in the last year or 1 fall with injury or currently using an Ambulatory Assistive Device (Walker, Cane, Wheelchair, Crutches, etc.)? No PATIENT GENDER DATA: Female. status: : No status: NO. PATIENT RELEVANT IMPLANT DATA REVIEWED: Yes RADIOLOGY DEPARTMENT: General X-ray: Exam(s) Completed: Chest X-Ray PERIPHERAL IV DATA: Not applicable SIGNED BY: RT Ericka(Rain) July 21, 2023 9:16 AM documented in this encounterGenesis Hospital08-23-2023 History of Present illness Narrative* Charles Salinas, OMAR.INFORMATION CODER - 07/21/2023 8:56 AM EDT Subjective HPI Nontoxic-appearing female presents urgent care chief complaint sinus pressure. Duration of symptoms8 days. Associated symptoms sinus pressure left ear pain and dental pain. States earlier in illnessshe did have body aches chills and night sweats. Those lasted 2 to 3 days. Those have since subsided. Has been afebrile for the last 4 days. No known sick contacts. Has not taken any OTC medications t ling. With bothersome symptom is sinus pressure and pain. Denies any fever body aches chills productive cough chest pain shortness of breath pleuritic pain hemoptysis nausea vomiting abdominal pain change in bowel or bladder habits. Past medical history prescription medication use and allergies reviewed. .Patient presents with: Sinus Problem: sinus pressure drainage, left side ear and jaw pain x 1 week PAST MEDICAL HISTORY Diagnosis Date Abdominal pain, left lower quadrant Abdominal pain, unspecified site 08/22/2010 Arthritis Barretts esophagus EGD 2010 and 08/25/13 Bronchitis 07/30/2010 Pt was having cough with chest pain . -Was started on nebulisation and antibiotic at [facility]. -Symtoms better now. CAD (coronary artery disease) s/p PCI/CHRISTELLE to LAD with 2.75x15 Xience dilated to 3.4 Complication of anesthesia nausea, vomiting Controlled type 2 diabetes mellitus without complication, without long-term current use of insulin (HCC) 10/14/2016 Contusion of shoulder region Diverticulitis of sigmoid colon 09/17/2010 Dupuytren's contracture 11/01/2012 left worse than right Enlargement of lymph nodes Esophageal reflux Esophagitis, unspecified 04/03/2011 Generalized osteoarthrosis, unspecified site History of colonic polyps 09/20/2018 Added automatically from request for surgery [id number] Hypertension Kidney disease Migraine 08/23/2009 Migraine without aura, without mention of intractable migraine without mention of status migrainosus Pain in joint, shoulder region PONV (postoperative nausea and vomiting) Pure hypercholesterolemia Sciatica 10/09/2010 Sebaceous cyst 05/01/2015 Subacute thyroiditis Thoracic aortic aneurysm without rupture (HCC) 08/26/2019 Trigger thumb of left hand 08/12/2017 Added automatically from request for surgery [id number] Surgery effective Unspecified hypothyroidism PAST SURGICAL HISTORY Procedure Laterality Date BIOPSY BREAST OPEN INCISIONAL 75 Bx of breast, incisional- bilateral CATARACT EXTRACTION HX 2012 COLON SURGERY HX COLONOSCOPY FLX DX W/COLLJ SPEC WHEN PFRMD 03/2004 Colonoscopy COLONOSCOPY FLX DX W/COLLJ SPEC WHEN PFRMD 10/12/2018 Colonoscopy EGD TRANSORAL BIOPSY SINGLE/MULTIPLE 04/03/11 ESOPHAGOGASTRODUODENOSCOPY TRANSORAL DIAGNOSTIC 10/12/2018 EGD EYE SURGERY HX Bilateral cataract surgery/ INCISE FINGER TENDON SHEATH Right 08/22/2018 Right ring trigger finger release INCISE FINGER TENDON SHEATH Left 03/16/2019 Left middle trigger finger release INCISE FINGER TENDON SHEATH Right 01/05/2020 Right middle trigger finger release INCISE FINGER TENDON SHEATH Right 09/05/2020 Right 5th trigger finger release LAMINECTOMY W/O FFD 1/2 VERT SEG LUMBAR 07/18/2018 revision of L4-L5 LAMINECTOMY,LUMBAR October 04, 2015 Surgical Procedure/Date: lumbar laminectomy L4-5/October 04, 2015 LUMPECTOMY/RADIOTHERAPY DIAG MAMM/A10 1974 right NEUROPLASTY &/TRANSPOS MEDIAN NRV CARPAL TUNNE Left 09/14/2019 Left Carpal tunnel relese PAST SURGICAL HISTORY OF 2006 left 2nd finger cyst removed PAST SURGICAL HISTORY OF cyst from face PAST SURGICAL HISTORY OF 08/22/2008 left 5th toe repair hammertoe 4th and 5th PAST SURGICAL HISTORY OF 01/30/11 s/p PCI/CHRISTELLE to LAD with 2.75x15 Xience dilated to 3.4 PAST SURGICAL HISTORY OF 2010 partial colectomy 8 in, for diverticulitis PAST SURGICAL HISTORY OF remote right foot infection, ingrwn toenail PAST SURGICAL HISTORY OF 10/06/2013 left hand 4th digit trigger release REM LESIO TRUNK,ARM,LEG 1.1 -2.0CM 05/30/15 Exc. upper mid back David cyst TONSILLECTOMY PRIMARY/SECONDARY <AGE 12 Tonsillectomy VAGINAL HYSTERECTOMY VAGINAL HYSTERECTOMY UTERUS 250 GM/< 1985 uterus ALLERGIES Ativan [Lorazepam], Benzonatate, Hctz [Hydrochlorothiazide], Narcotics [Other], Seasonal Allergies, and Sulfa (Sulfonamide Antibiotics) MEDICATIONS amoxicillin (AMOXIL) 500 mg capsule Take by mouth. Take four tablets by mouth one hour prior to dental procedure levothyroxine (SYNTHROID) 75 mcg tablet Take 1 tablet by mouth once daily. metoprolol tartrate, short acting, (LOPRESSOR) 25 mg tablet Take 1 tablet by mouth twice daily. lisinopril (ZESTRIL) 10 mg tablet Take 1 tablet by mouth once daily. Blood Pressure Monitor (BLOOD PRESSURE KIT) 1 Each once daily as needed. rosuvastatin (CRESTOR) 40 mg tablet Take 1 tablet by mouth daily at bedtime. metFORMIN ER (GLUCOPHAGE XR) 500 mg 24 hr tablet Take 1 tablet by mouth twice daily with meals. As directed glipiZIDE (GLUCOTROL) 5 mg tablet Take 1 tablet by mouth twice daily before meals. Lancets lancets Test blood sugar(s) 1 time daily and as needed. Dx: Type 2 DM - Uncontrolled E11.9 Insulin: No blood sugar diagnostic (BLOOD GLUCOSE TEST) test strip Test blood sugar(s) 1 time daily and as needed. Dx: Type 2 DM - Uncontrolled E11.9 Insulin: No omeprazole (PRILOSEC) 20 mg capsule Take 1 capsule by mouth daily before breakfast. 1/2 hr before meal. escitalopram oxalate (LEXAPRO) 5 mg tablet Take 1 tablet by mouth once daily. For depression clobetasol (TEMOVATE) 0.05 % cream Apply to affected area 2x/day for 2 weeks, then 1x/day for a week, than 1-3x/week for maintenance. ELIQUIS 5 mg tab(s) Take 5 mg by mouth twice daily. isosorbide mononitrate ER (IMDUR) 60 mg 24 hr tablet Take 60 mg by mouth once daily. nitroglycerin sublingual (NITROQUICK) 0.4 mg SL tablet Dissolve 1 tablet under the tongue every 5 minutes as needed. As directed for chest pain. IF NO RELIEF CALL 911 cholecalciferol (VITAMIN D3) 50 mcg (2,000 unit) tablet Take 1 tablet by mouth once daily. ACETAMINOPHEN/DIPHENHYDRAMINE (TYLENOL PM EXTRA STRENGTH ORAL) Take by mouth every 8 hours as needed. aspirin, enteric coated (ASPIRIN, ENTERIC COATED) 81 mg EC tablet Take 1 tablet by mouth once daily. THERAPEUTIC MULTIVITAMIN TAB Take by mouth once daily. albuterol HFA (PROVENTIL HFA, VENTOLIN HFA) 90 mcg/actuation inhaler Inhale 2 Puffs as instructed every 6 hours as needed for wheezing/shortness of breath. fluticasone (FLONASE) 50 mcg/actuation nasal spray Use 1-2 Sprays in each nostril once daily. [place] after use. For nasal congestion and drainage Bacillus coagulans 10 billion cell cpDR Take by mouth once daily. (Patient not taking: Reported on 06/14/2023) FAMILY HISTORY Problem Relation Age of Onset Heart Mother Stroke Mother Hypertension Mother Hypertension Father Heart Father Stroke Father Allergies Sister Diabetes Sister Hypertension Sister Social History Tobacco Use Smoking status: Never Smokeless tobacco: Never Vaping Use Vaping Use: Never used Substance Use Topics Alcohol use: No Drug use: No BP 108/62 Pulse 96 Temp 37.2 C (99 F) Resp 18 Wt 55.8 kg (123 lb) SpO2 97% BMI 24.02 kg/m Review of Systems Constitutional: Negative for chills, fever and malaise/fatigue. HENT: Positive for congestion, ear pain and sinus pain. Negative for ear discharge and sore throat. Eyes: Negative for blurred vision, pain, discharge and redness. Respiratory: Negative for cough, hemoptysis, sputum production, shortness of breath, wheezing and stridor. Cardiovascular: Negative for chest pain. Gastrointestinal: Negative for abdominal pain, diarrhea, nausea and vomiting. Musculoskeletal: Negative for myalgias. Skin: Negative for itching and rash. Neurological: Negative for dizziness and headaches. Objective Physical Exam Constitutional: General: She is not in acute distress. Appearance: She is not diaphoretic. HENT: Head: Normocephalic. Jaw: No trismus, tenderness, swelling or pain on movement. Right Ear: Tympanic membrane, ear canal and external ear normal. Left Ear: Tympanic membrane, ear canal and external ear normal. Nose: Congestion present. Left Sinus: Maxillary sinus tenderness and frontal sinus tenderness present. Mouth/Throat: Mouth: Mucous membranes are moist. Pharynx: Oropharynx is clear. Uvula midline. No pharyngeal swelling, oropharyngeal exudate, posterior oropharyngeal erythema or uvula swelling. Eyes: Conjunctiva/sclera: Conjunctivae normal. Pupils: Pupils are equal, round, and reactive to light. Cardiovascular: Rate and Rhythm: Normal rate and regular rhythm. Heart sounds: Normal heart sounds. Pulmonary: Effort: Pulmonary effort is normal. No tachypnea, accessory muscle usage or respiratory distress. Breath sounds: Normal breath sounds. No stridor. No wheezing, rhonchi or rales. Abdominal: General: There is no distension. Palpations: Abdomen is soft. Tenderness: There is no abdominal tenderness. There is no guarding or rebound. Musculoskeletal: Cervical back: Normal range of motion and neck supple. No edema, erythema, rigidity or tenderness. No pain with movement. Normal range of motion. Lymphadenopathy: Cervical: No cervical adenopathy. Skin: General: Skin is warm and dry. Neurological: Mental Status: She is alert and oriented to person, place, and time. ASSESSMENT/PLAN: 1. Acute cough - ICD9: 786.2, ICD10: R05.1 (primary diagnosis) - XR CHEST 2V FRONTAL/LAT 2. Bacterial sinusitis - ICD9: 473.9, 041.9, ICD10: J32.9, B96.89 IMPRESSION: No acute radiographic abnormality in the lungs. Mild enlargement of the cardiac silhouette. No acute findings noted on chest x-ray. Suspicious of secondary bacterial infection post viral illness. Placed on doxycycline. Follow-up with PCP 2 to 3 days symptoms. Red flags prompt reevaluation discussed. Patient was educated on supportive therapies. Patient will follow up with primary care provider as needed. Patient was instructed to immediately proceed to emergency room for any new, worsening, or symptoms lasting longer than anticipated. The patient's clinical presentation is otherwise unremarkable at this time. Based on exam and clinical finding, the patient is stable for discharge. Plan of care was discussed with patient. Patient verbalizes understanding and agrees to plan of care. This note was generated using [employer] software. It may contain errors in wording, punctuation, or spelling. Charles Salinas APRN.AARON documented in this encounterGenesis Hospital07-19-2023 Miscellaneous Notes* Telephone Encounter - Shweta Fagan RN - 06/16/2023 3:47 PM EDT Patient calls and states that she has dental procedure next week and needs to have amoxicillin sentto pharmacy. Dr. Trinh normally orders this however Dr. Trinh is no longer in [place]. Please review and advise, Shweta Fagan RN documented in this encounterGenesis Hospital07-17-2023 Instructions* Patient Instructions* Matthew Spencer MD - 06/14/2023 11:40 AM EDT Decrease levothyroxine weekly dosage by taking 75 mg pill one daily except on 2 days a week take half pill (Wednesday and Wednesday 37.5mg and other 5 days take 75mg). Check thyroid labs and BMP in about 2 month (6 to 10 weeks from now) to see if dose needs adjusted more and to make sure kidney function improving. If able to check BP, if lightheaded and dizzy and BP under 110, may decrease lisinopril to half pill daily. Monitor BP and let me know if BP still low or if gets too high. When BP gets too low or if lightheaded and dizzy, can drink 2 cups of fluid under 5 minutes to get BP up. documented in this encounterGenesis Hospital07-17-2023 History of Present illness Narrative* Matthew Spencer MD - 06/14/2023 11:20 AM EDT This note was created using [employer]. Subjective Dolores Villa is a 77 year old female. Patient presents with: F/U 6 months: Labs prior SUBJECTIVE: Dolores Villa is a 77 year old year old lady here today for 6 month follow up appointment for review of medical conditions. Doing well overall. Got cortisone shot in left shoulder by Dr. Bender. Doing great since then. Mowed after that. Noted that is ahead on RXs. Will see Elisha at [facility] in July since Dr. Trinh now practicing in [place]. Gets 6 cups water, eats fruits and veggies and has decaf coffee. Gets fluids in an hour prior to getting labs. Has LW on file but needs updated.Has HCDPOA but not on file. Will get up to date forms completed and dropped off. Daughter is her HCDPOA. Reviewed that has not had COVID-19 infection as far as she knows. Depression Screening 09/24/2021 11/09/2022 11/10/2022 06/14/2023 PHQ-2 Score 2 2 2 0 PHQ-9 Score - 4 - - SHARYN-2 Total Score - - - - Depression screening tool completed and reviewed. Based on score and interview, patient is not at risk for depression. Screening tool discussed with patient, and I recommended no further interventionat this time. PAST MEDICAL HISTORY Diagnosis Date Abdominal pain, left lower quadrant Abdominal pain, unspecified site 08/22/2010 Arthritis Barretts esophagus EGD 2010 and 08/25/13 Bronchitis 07/30/2010 Pt was having cough with chest pain . -Was started on nebulisation and antibiotic at [facility]. -Symtoms better now. CAD (coronary artery disease) s/p PCI/CHRISTELLE to LAD with 2.75x15 Xience dilated to 3.4 Complication of anesthesia nausea, vomiting Controlled type 2 diabetes mellitus without complication, without long-term current use of insulin ([facility]) 10/14/2016 Contusion of shoulder region Diverticulitis of sigmoid colon 09/17/2010 Dupuytren's contracture 11/01/2012 left worse than right Enlargement of lymph nodes Esophageal reflux Esophagitis, unspecified 04/03/2011 Generalized osteoarthrosis, unspecified site History of colonic polyps 09/20/2018 Added automatically from request for surgery [id number] Hypertension Kidney disease Migraine 08/23/2009 Migraine without aura, without mention of intractable migraine without mention of status migrainosus Pain in joint, shoulder region PONV (postoperative nausea and vomiting) Pure hypercholesterolemia Sciatica 10/09/2010 Sebaceous cyst 05/01/2015 Subacute thyroiditis Thoracic aortic aneurysm without rupture ([facility]) 08/26/2019 Trigger thumb of left hand 08/12/2017 Added automatically from request for surgery [id number] Surgery effective Unspecified hypothyroidism Current Outpatient Medications Medication Sig rosuvastatin (CRESTOR) 40 mg tablet Take 1 tablet by mouth daily at bedtime. metFORMIN ER (GLUCOPHAGE XR) 500 mg 24 hr tablet Take 1 tablet by mouth twice daily with meals. As directed glipiZIDE (GLUCOTROL) 5 mg tablet Take 1 tablet by mouth twice daily before meals. Lancets lancets Test blood sugar(s) 1 time daily and as needed. Dx: Type 2 DM - Uncontrolled E11.9 Insulin: No blood sugar diagnostic (BLOOD GLUCOSE TEST) test strip Test blood sugar(s) 1 time daily and as needed. Dx: Type 2 DM - Uncontrolled E11.9 Insulin: No omeprazole (PRILOSEC) 20 mg capsule Take 1 capsule by mouth daily before breakfast. 1/2 hr before meal. escitalopram oxalate (LEXAPRO) 5 mg tablet Take 1 tablet by mouth once daily. For depression clobetasol (TEMOVATE) 0.05 % cream Apply to affected area 2x/day for 2 weeks, then 1x/day for a week, than 1-3x/week for maintenance. metoprolol tartrate, short acting, (LOPRESSOR) 25 mg tablet Take 1 tablet by mouth twice daily. levothyroxine (SYNTHROID) 75 mcg tablet Take 1 tablet by mouth once daily. ELIQUIS 5 mg tab(s) Take 5 mg by mouth twice daily. isosorbide mononitrate ER (IMDUR) 60 mg 24 hr tablet Take 60 mg by mouth once daily. lisinopril (ZESTRIL, PRINIVIL) 10 mg tablet Take 1 tablet by mouth once daily. nitroglycerin sublingual (NITROQUICK) 0.4 mg SL tablet Dissolve 1 tablet under the tongue every 5 minutes as needed. As directed for chest pain. IF NO RELIEF CALL 911 cholecalciferol (VITAMIN D3) 50 mcg (2,000 unit) tablet Take 1 tablet by mouth once daily. ACETAMINOPHEN/DIPHENHYDRAMINE (TYLENOL PM EXTRA STRENGTH ORAL) Take by mouth every 8 hours as needed. aspirin, enteric coated (ASPIRIN, ENTERIC COATED) 81 mg EC tablet Take 1 tablet by mouth once daily. THERAPEUTIC MULTIVITAMIN TAB Take by mouth once daily. albuterol HFA (PROVENTIL HFA, VENTOLIN HFA) 90 mcg/actuation inhaler Inhale 2 Puffs as instructed every 6 hours as needed for wheezing/shortness of breath. fluticasone (FLONASE) 50 mcg/actuation nasal spray Use 1-2 Sprays in each nostril once daily. [place] after use. For nasal congestion and drainage Bacillus coagulans 10 billion cell cpDR Take by mouth once daily. (Patient not taking: Reported on 06/14/2023) No current facility-administered medications for this visit. Review of Systems Objective BP 102/58 Pulse 76 Temp 37 C (98.6 F) Resp 18 Wt 54 kg (119 lb) SpO2 96% BMI 23.24 kg/m Last 5 Encounter Wt Readings: Date: Wt: 06/14/2023 54 kg (119 lb) 02/12/2023 54.9 kg (121 lb) 12/14/2022 57.6 kg (127 lb) 11/16/2022 63.3 kg (139 lb 7.2 oz) 11/16/2022 63 kg (138 lb 12.8 oz) No waist measurement recorded Estimated body mass index is 23.24 kg/m as calculated from the following: Height as of 09/20/18: 152.4 cm (5'). Weight as of this encounter: 54 kg (119 lb). Last 5 Encounter BP Readings: Date: BP: 06/14/2023 102/58 02/12/2023 108/62 12/14/2022 100/60 11/16/2022 138/94 11/16/2022 120/60 Physical Exam Component Latest Ref Rng & Units 11/02/2022 12/07/2022 06/07/2023 WBC 3.70 - 11.00 k/uL 8.56 8.83 7.98 RBC 3.90 - 5.20 m/uL 3.63 (L) 4.55 4.02 Hemoglobin 11.5 - 15.5 g/dL 11.3 (L) 13.8 12.4 Hematocrit 36.0 - 46.0 % 35.9 (L) 43.2 38.9 MCV 80.0 - 100.0 fL 98.9 94.9 96.8 MCH 26.0 - 34.0 pg 31.1 30.3 30.8 MCHC 30.5 - 36.0 g/dL 31.5 31.9 31.9 RDW-CV 11.5 - 15.0 % 14.9 14.1 14.7 Platelet Count 150 - 400 k/uL 241 339 266 MPV 9.0 - 12.7 fL 10.2 10.7 10.8 Neut% % 64.2 57.7 Abs Neut (ANC) 1.45 - 7.50 k/uL 5.67 4.62 Lymph% % 22.3 26.6 Abs Lymph 1.00 - 4.00 k/uL 1.97 2.12 [place]% % 11.3 11.7 Abs [place] <0.87 k/uL 1.00 (H) 0.93 (H) Eosin% % 0.9 2.3 Abs Eosin <0.46 k/uL 0.08 0.18 Baso% % 0.8 0.8 Abs Baso <0.11 k/uL 0.07 0.06 Immature Gran % % 0.5 0.9 IMMATURE GRANS (ABS) <0.10 k/uL 0.04 0.07 NRBC /100 WBC 0.0 0.0 Absolute nRBC <0.01 k/uL <0.01 <0.01 <0.01 DTYPE Auto Auto Protein, Total 6.3 - 8.0 g/dL 7.5 7.7 Albumin 3.9 - 4.9 g/dL 4.3 4.3 Calcium 8.5 - 10.2 mg/dL 9.1 10.4 (H) Bilirubin, Total 0.2 - 1.3 mg/dL 0.5 0.5 Alkaline Phosphatase 34 - 123 U/L 55 59 AST 13 - 35 U/L 13 17 ALT 7 - 38 U/L 7 11 Glucose 74 - 99 mg/dL 148 (H) 91 BUN 7 - 21 mg/dL 15 17 Creatinine 0.58 - 0.96 mg/dL 1.32 (H) 1.70 (H) Sodium 136 - 144 mmol/L 138 138 Potassium 3.7 - 5.1 mmol/L 4.3 4.4 Chloride 97 - 105 mmol/L 103 103 CO2 22 - 30 mmol/L 28 26 Anion Gap 9 - 18 mmol/L 7 (L) 9 eGFR >=60 mL/min/1.73m 42 (L) 31 (L) Cholesterol, Total <200 mg/dL 114 Triglyceride <150 mg/dL 119 HDL Cholesterol >39 mg/dL 41 Non HDL Cholesterol <130 mg/dL 73 Fasting Time hrs 12 VLDL Cholesterol <30 mg/dL 24 TC:HDL Ratio <5.10 2.78 LDL Cholesterol <100 mg/dL 49 LDL:HDL Ratio <2.54 1.20 Total Cholesterol, Nonfasting <200 mg/dL 158 Triglycerides, Nonfasting <150 mg/dL 171 (H) HDL Cholesterol, Nonfasting >39 mg/dL 41 LDL Cholesterol, Nonfasting <100 mg/dL 83 Non HDL Cholesterol, Nonfasting <130 mg/dL 117 VLDL Cholesterol, Nonfasting <30 mg/dL 34 (H) Total Chol/HDL Ratio, Nonfasting <5.10 mg/dL 3.85 LDL/HDL Ratio, Nonfasting <2.54 mg/dL 2.02 Creatinine, Ur Random (UCRR) 20.0 - 300.0 mg/dL 168.4 Albumin, Urine Random mg/L 198.3 Albumin/Creat Ratio <30 mg/g 118 (H) Hemoglobin A1C 4.3 - 5.6 % 7.6 (H) 6.9 (H) Estimated Average Glucose mg/dL 171 151 Vitamin D 25 Hydroxy 31.0 - 80.0 ng/mL 42.9 TSH 0.270 - 4.200 mIU/L 3.280 0.630 Free T4 0.9 - 1.7 ng/dL 1.6 Assessment and Plan Encounter Diagnosis ICD-10-CM 1. Type 2 diabetes mellitus with stage 3a chronic kidney disease, without long- term current use of insulin ([facility]) E11.22 BASIC METABOLIC PNL N18.31 HGB A1C COMP METABOLIC PANEL CBC LIPID PANEL BASIC VITAMIN D 25 HYDROXY ALBUMIN/CREAT RATIO RND UR 2. Acquired hypothyroidism E03.9 levothyroxine (SYNTHROID) 75 mcg tablet Blood Pressure Monitor (BLOOD PRESSURE KIT) TSH BLD T4 FREE/FREE THYROX TSH BLD T4 FREE/FREE THYROX 3. Coronary artery disease involving [place] heart without angina pectoris, unspecified vessel or lesion type I25.10 metoprolol tartrate, short acting, (LOPRESSOR) 25 mg tablet lisinopril (ZESTRIL) 10 mg tablet Blood Pressure Monitor (BLOOD PRESSURE KIT) 4. Microalbuminuria due to type 2 diabetes mellitus ([facility]) E11.29 ALBUMIN/CREAT RATIO RND UR R80.9 BASIC METABOLIC PNL COMP METABOLIC PANEL ALBUMIN/CREAT RATIO RND UR 5. Vitamin D deficiency E55.9 VITAMIN D 25 HYDROXY BASIC METABOLIC PNL VITAMIN D 25 HYDROXY 6. 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 K22.70 Continue PPI 7. Dilated aortic root ([facility]) I77.810 Mildly dilated on echocardiograms; possibly dilated aortic root on heart cath done 2021 Above issues addressed with patient. Patient involved in shared decision making for management of medical issues. History and medications reviewed. Epic updated as needed Refills and/or prescriptions taken care of and meds adjusted as indicated after reviewed history, exam and labs. Health Maintenance reviewed. Updated record and/or ordered tests as recorded. Encouraged on efforts at healthy diet and regular exercise and adequate sleep. Continue follow up with [facility]. Stable on current meds. Continue present management. Further evaluation and treatment as indicated. I spent a total of 39 minutes on the date of the service which included preparing to see the patient, [id number] patient care, completing clinical documentation, performing a medically appropriate examination, counseling and educating the patient/family/caregiver, ordering medications, tests, or p rocedures, independently interpreting results (not separately reported), and communicating results to the patient/family/caregiver. Matthew Spencer MD [facility] History of Past illness Narrative* Problem Noted Date Diagnosed Date Resolved Date Angina pectoris 02/12/2023 07/18/2023 Trigger thumb of left hand 08/12/2017 1 Overview: Added automatically from request for surgery [id number] Surgery effective Sacroiliitis, not elsewhere classified 02/07/2013 05/17/2020 Esophagitis 04/03/2011 09/26/2021 SUMMARY 01/29/2011 09/26/2021 Overview: 65 year old F with known CAD (50% stenosis of RCA & 60% stenosis of the LAD) presents with unstable angina Migraine 08/23/2009 11/19/2020 Cervicalgia 06/30/2007 08/08/2007 documented as of this encounter (statuses as of 07/19/2023) [facility] History of Past illness Narrative* Problem Noted Date Diagnosed Date Resolved Date Angina pectoris 02/12/2023 07/18/2023 Trigger thumb of left hand 08/12/2017 1 Overview: Added automatically from request for surgery [id number] Surgery effective Sacroiliitis, not elsewhere classified 02/07/2013 05/17/2020 Esophagitis 04/03/2011 09/26/2021 SUMMARY 01/29/2011 09/26/2021 Overview: 65 year old F with known CAD (50% stenosis of RCA & 60% stenosis of the LAD) presents with unstable angina Migraine 08/23/2009 11/19/2020 Cervicalgia 06/30/2007 08/08/2007 documented as of this encounter (statuses as of 07/21/2023) [facility] of Past illness Narrative* Problem Noted Date Diagnosed Date Resolved Date Angina pectoris 02/12/2023 07/18/2023 Trigger thumb of left hand 08/12/2017 1 Overview: Added automatically from request for surgery [id number] Surgery effective Sacroiliitis, not elsewhere classified 02/07/2013 05/17/2020 Esophagitis 04/03/2011 09/26/2021 SUMMARY 01/29/2011 09/26/2021 Overview: 65 year old F with known CAD (50% stenosis of RCA & 60% stenosis of the LAD) presents with unstable angina Migraine 08/23/2009 11/19/2020 Cervicalgia 06/30/2007 08/08/2007 documented as of this encounter (statuses as of 07/31/2023) [facility] of Past illness Narrative* Problem Noted Date Diagnosed Date Resolved Date Angina pectoris 02/12/2023 07/18/2023 Trigger thumb of left hand 08/12/2017 1 Overview: Added automatically from request for surgery [id number] Surgery effective Sacroiliitis, not elsewhere classified 02/07/2013 05/17/2020 Esophagitis 04/03/2011 09/26/2021 SUMMARY 01/29/2011 09/26/2021 Overview: 65 year old F with known CAD (50% stenosis of RCA & 60% stenosis of the LAD) presents with unstable angina Migraine 08/23/2009 11/19/2020 Cervicalgia 06/30/2007 08/08/2007 documented as of this encounter (statuses as of 08/20/2023) [facility] of Past illness Narrative* Problem Noted Date Diagnosed Date Resolved Date Angina pectoris 02/12/2023 07/18/2023 Trigger thumb of left hand 08/12/2017 1 Overview: Added automatically from request for surgery [id number] Surgery effective Sacroiliitis, not elsewhere classified 02/07/2013 05/17/2020 Esophagitis 04/03/2011 09/26/2021 SUMMARY 01/29/2011 09/26/2021 Overview: 65 year old F with known CAD (50% stenosis of RCA & 60% stenosis of the LAD) presents with unstable angina Migraine 08/23/2009 11/19/2020 Cervicalgia 06/30/2007 08/08/2007 documented as of this encounter (statuses as of 09/23/2023) [facility] of Past illness Narrative* Problem Noted Date Diagnosed Date Resolved Date Angina pectoris 02/12/2023 07/18/2023 Trigger thumb of left hand 08/12/2017 1 Overview: Added automatically from request for surgery [id number] Surgery effective Sacroiliitis, not elsewhere classified 02/07/2013 05/17/2020 Esophagitis 04/03/2011 09/26/2021 SUMMARY 01/29/2011 09/26/2021 Overview: 65 year old F with known CAD (50% stenosis of RCA & 60% stenosis of the LAD) presents with unstable angina Migraine 08/23/2009 11/19/2020 Cervicalgia 06/30/2007 08/08/2007 documented as of this encounter (statuses as of 09/29/2023) [facility] of Past illness Narrative* Problem Noted Date Diagnosed Date Resolved Date Angina pectoris 02/12/2023 07/18/2023 Trigger thumb of left hand 08/12/2017 1 Overview: Added automatically from request for surgery [id number] Surgery effective Sacroiliitis, not elsewhere classified 02/07/2013 05/17/2020 Esophagitis 04/03/2011 09/26/2021 SUMMARY 01/29/2011 09/26/2021 Overview: 65 year old F with known CAD (50% stenosis of RCA & 60% stenosis of the LAD) presents with unstable angina Migraine 08/23/2009 11/19/2020 Cervicalgia 06/30/2007 08/08/2007 documented as of this encounter (statuses as of 10/05/2023) [facility] of Past illness Narrative* Problem Noted Date Diagnosed Date Resolved Date Angina pectoris 02/12/2023 07/18/2023 Trigger thumb of left hand 08/12/2017 1 Overview: Added automatically from request for surgery [id number] Surgery effective Sacroiliitis, not elsewhere classified 02/07/2013 05/17/2020 Esophagitis 04/03/2011 09/26/2021 SUMMARY 01/29/2011 09/26/2021 Overview: 65 year old F with known CAD (50% stenosis of RCA & 60% stenosis of the LAD) presents with unstable angina Migraine 08/23/2009 11/19/2020 Cervicalgia 06/30/2007 08/08/2007 documented as of this encounter (statuses as of 11/08/2023) [facility] of Past illness Narrative* Problem Noted Date Diagnosed Date Resolved Date Angina pectoris 02/12/2023 07/18/2023 Trigger thumb of left hand 08/12/2017 1 Overview: Added automatically from request for surgery [id number] Surgery effective Sacroiliitis, not elsewhere classified 02/07/2013 05/17/2020 Esophagitis 04/03/2011 09/26/2021 SUMMARY 01/29/2011 09/26/2021 Overview: 65 year old F with known CAD (50% stenosis of RCA & 60% stenosis of the LAD) presents with unstable angina Migraine 08/23/2009 11/19/2020 Cervicalgia 06/30/2007 08/08/2007 documented as of this encounter (statuses as of 11/08/2023) [facility] of Past illness Narrative* Problem Noted Date Diagnosed Date Resolved Date Angina pectoris 02/12/2023 07/18/2023 Trigger thumb of left hand 08/12/2017 1 Overview: Added automatically from request for surgery [id number] Surgery effective Sacroiliitis, not elsewhere classified 02/07/2013 05/17/2020 Esophagitis 04/03/2011 09/26/2021 SUMMARY 01/29/2011 09/26/2021 Overview: 65 year old F with known CAD (50% stenosis of RCA & 60% stenosis of the LAD) presents with unstable angina Migraine 08/23/2009 11/19/2020 Cervicalgia 06/30/2007 08/08/2007 documented as of this encounter (statuses as of 12/20/2023) [facility] of Past illness Narrative* Problem Noted Date Diagnosed Date Resolved Date Angina pectoris 02/12/2023 07/18/2023 Trigger thumb of left hand 08/12/2017 1 Overview: Added automatically from request for surgery [id number] Surgery effective Sacroiliitis, not elsewhere classified 02/07/2013 05/17/2020 Esophagitis 04/03/2011 09/26/2021 SUMMARY 01/29/2011 09/26/2021 Overview: 65 year old F with known CAD (50% stenosis of RCA & 60% stenosis of the LAD) presents with unstable angina Migraine 08/23/2009 11/19/2020 Cervicalgia 06/30/2007 08/08/2007 documented as of this encounter (statuses as of 03/03/2024) [facility] Miscellaneous Notes* Telephone Encounter - Tenisha Gamble LPN - 11/24/2022 2:59 PM EST Last office visit: 11/10/22 Next appointment scheduled: 06/14/23 Last labs: 11/02/22 Last HGBA1C * Telephone Encounter - Leyla Sabillon [facility] - 11/24/2022 11:48 AM EST Patient has been identified by name and date of : Yes Requested Prescriptions Pending Prescriptions Disp Refills metFORMIN ER (GLUCOPHAGE XR) 500 mg 24 hr tablet 180 tablet 3 Sig: Take 1 tablet by mouth twice daily with meals. As directed RX INSTRUCTIONS: Patient aware RX will be sent to pharmacy. No need to notify patient. Leyla Sabillon [employer] [facility]Gen[facility]12[facility] Instructions* Patient Instructions* Dipika Hernandez APRN.CNS - 11/10/2022 9:07 AM EST Check to see if your insurance covers shingles vaccine and what location to get the vaccine -usually best covered at your local pharmacy where you get prescriptions filled Let us know if interested in counseling for depression Start taking medication for depression - lexapro 5 mg once daily documented in [facility] encounterGen[facility]12[facility] History of Present illness Narrative* Dipika Hernandez APRN.CNS - 11/10/2022 8:40 AM EST SUBJECTIVE: SHINGRIX VACCINE(2 of 3) due on 01/24/2016 DEPRESSION ASSESSMENT Never done HPI Dolores Villa is a 74 year old female.PMH significant for ACTIVE PROBLEM LIST Hypothyroidism Mixed Hyperlipidemia Other Hammer Toe (Acquired) Pain in Joint, Shoulder Region Gerd (Gastroesophageal Reflux Disease) Occlusion and Stenosis of Carotid Artery Without Mention of Cerebral Infarction Cad (Coronary Artery Disease) Diverticulitis of Colon Postsurgical Percutaneous Transluminal Coronary Angioplasty Status Dupuytren's Contracture Trigger Ring Finger of Left Hand Thoracic and Lumbosacral Neuritis History of Lumbar Laminectomy Bulge of Lumbar Disc Without Myelopathy Type 2 Diabetes Mellitus With Stage 3a Chronic Kidney Disease, Without Long-Term Current Use of Insulin (Hcc) Stage 3a chronic kidney disease (HCC) Trigger Finger, Right Ring Finger Dial's Esophagus Without Dysplasia Chronic pain of left knee--since contusion Thoracic Aortic Aneurysm Without Rupture Hypertensive Kidney Disease With Stage 3a Chronic Kidney Disease (Hcc) Presents today for follow-up visit. She is in her usual state of health. Going to [facility] to follow-up coronary artery disease and atrial fibrillation. Reports she recently wore a 30-day monitor. She reports depressed mood related to family member and alf and very stressful for her. She is not sure if she wants to treat depression or just speak with a counselor. DIABETES MELLITUS: She notes diabetes continues to be well controlled at home. Highest reading since last year was 180. She notes she has been adhering to diet. Consistent with medications. Without report of excessive thirst or increased frequency of urination, chest pain or dyspnea , numbness, tingling or pain in extremities, new or unusual visual symptoms, low sugar/hypoglycemic reactions, weight loss/gain, lightheadedness/dizziness and bowel changes/loose stools. Patient's last HgA1C was Hemoglobin A1C (%) Date Value 11/02/2022 7.6 05/04/2022 7.6 09/23/2021 7.4 03/04/2021 7.2 ) HTN: Ms. Villa indicates that she is without headache, chest pain, palpitations, dyspnea, peripheral edema, orthopnea, fatigue and PND. She follows with [facility]. Last 14 Encounter BP Readings: Date: BP: 10/26/2022 102/58 05/11/2022 104/62 10/02/2021 112/60 03/19/2021 122/62 03/11/2021 114/66 11/19/2020 112/70 08/15/2020 132/68 08/09/2020 122/57 02/07/2020 122/64 01/01/2020 110/70 12/11/2019 104/62 08/26/2019 120/66 08/06/2019 113/59 06/22/2019 161/73 Hyperlipidemia. Her most recent lipid panels are: Cholesterol, Total (mg/dL) Date Value 05/04/2022 141 09/23/2021 132 08/07/2020 139 HDL Cholesterol (mg/dL) Date Value 05/04/2022 38 09/23/2021 39 08/07/2020 43 LDL Cholesterol (mg/dL) Date Value 05/04/2022 75 09/23/2021 63 08/07/2020 69 Triglyceride (mg/dL) Date Value 05/04/2022 138 09/23/2021 150 08/07/2020 133 Hypothyroidism. She is doing well on her current dose of Synthroid., Without symptomatic complaints. TSH Date Value 11/02/2022 3.280 mIU/L 05/04/2022 1.470 mIU/L 09/23/2021 2.590 uU/mL 08/07/2020 1.030 uU/mL ) No current GERD symptoms reported. Review of Systems Constitutional: Negative. Respiratory: Negative. Cardiovascular: Negative. Endocrine: Negative. Psychiatric/Behavioral: Positive for dysphoric mood. Objective BP 116/72 Pulse 87 Resp 16 Wt 60.8 kg (134 lb) SpO2 98% BMI 26.17 kg/m Physical Exam Vitals and nursing note reviewed. Constitutional: General: She is not in acute distress. Appearance: She is not ill-appearing, toxic-appearing or diaphoretic. HENT: Head: Normocephalic and atraumatic. Eyes: General: No scleral icterus. Right eye: No discharge. Left eye: No discharge. Conjunctiva/sclera: Conjunctivae normal. Neck: Vascular: No carotid bruit. Cardiovascular: Rate and Rhythm: Normal rate. Rhythm irregular. Heart sounds: Normal heart sounds. Pulmonary: Effort: Pulmonary effort is normal. Breath sounds: Normal breath sounds. Abdominal: General: Bowel sounds are normal. Palpations: Abdomen is soft. Musculoskeletal: Cervical back: Neck supple. No muscular tenderness. Right lower leg: No edema. Left lower leg: No edema. Feet: Right foot: Protective Sensation: 10 sites tested. 10 sites sensed. Left foot: Protective Sensation: 10 sites tested. 10 sites sensed. Skin: General: Skin is warm and dry. Neurological: General: No focal deficit present. Mental Status: She is alert and oriented to person, place, and time. ALLERGIES Allergen Reactions Ativan [Lorazepam] Other: See Comments family members had MS change Benzonatate GI Upset Hctz [Hydrochloroth* Intolerance headache Narcotics [Other] GI Upset cause H/A and migrains Seasonal Allergies Other: See Comments Receiving allergy shots. Sulfa (Sulfonamide * Unknown Medications clobetasol (TEMOVATE) 0.05 % cream Apply to affected area 2x/day for 2 weeks, then 1x/day for a week, than 1-3x/week for maintenance. metoprolol tartrate, short acting, (LOPRESSOR) 25 mg tablet Take 1 tablet by mouth twice daily. levothyroxine (SYNTHROID) 75 mcg tablet Take 1 tablet by mouth once daily. ELIQUIS 5 mg tab(s) Take 5 mg by mouth twice daily. isosorbide mononitrate ER (IMDUR) 60 mg 24 hr tablet Take 60 mg by mouth once daily. lisinopril (ZESTRIL, PRINIVIL) 10 mg tablet Take 1 tablet by mouth once daily. rosuvastatin (CRESTOR) 40 mg tablet Take 1 tablet by mouth daily at bedtime. metFORMIN ER (GLUCOPHAGE XR) 500 mg 24 hr tablet Take 1 tablet by mouth twice daily with meals. As directed nitroglycerin sublingual (NITROQUICK) 0.4 mg SL tablet Dissolve 1 tablet under the tongue every 5 minutes as needed. As directed for chest pain. IF NO RELIEF CALL 911 cholecalciferol (VITAMIN D3) 50 mcg (2,000 unit) tablet Take 1 tablet by mouth once daily. ACETAMINOPHEN/DIPHENHYDRAMINE (TYLENOL PM EXTRA STRENGTH ORAL) Take by mouth. Bacillus coagulans 10 billion cell cpDR Take by mouth once daily. aspirin, enteric coated (ASPIRIN, ENTERIC COATED) 81 mg EC tablet Take 1 tablet by mouth once daily. naproxen sodium(ALEVE 220 MG TAB) Take one(1) tablet every 8-12 hours as needed THERAPEUTIC MULTIVITAMIN TAB Take one(1) tablet daily. glipiZIDE (GLUCOTROL) 5 mg tablet Take 1 tablet by mouth twice daily before meals. Lancets lancets Test blood sugar(s) 1 time daily and as needed. Dx: Type 2 DM - Uncontrolled E11.9 Insulin: No blood sugar diagnostic (BLOOD GLUCOSE TEST) test strip Test blood sugar(s) 1 time daily and as needed. Dx: Type 2 DM - Uncontrolled E11.9 Insulin: No omeprazole (PRILOSEC) 20 mg capsule Take 1 capsule by mouth daily before breakfast. 1/2 hr before meal. escitalopram oxalate (LEXAPRO) 5 mg tablet Take 1 tablet by mouth once daily. For depression PAST MEDICAL HISTORY Diagnosis Date Abdominal pain, left lower quadrant Abdominal pain, unspecified site 08/22/2010 Arthritis Barretts esophagus EGD 2010 and 08/25/13 Bronchitis 07/30/2010 Pt was having cough with chest pain . -Was started on nebulisation and antibiotic at [facility]. -Symtoms better now. CAD (coronary artery disease) s/p PCI/CHRISTELLE to LAD with 2.75x15 Xience dilated to 3.4 Complication of anesthesia nausea, vomiting Controlled type 2 diabetes mellitus without complication, without long-term current use of insulin ([facility]) 10/14/2016 Contusion of shoulder region Diverticulitis of sigmoid colon 09/17/2010 Dupuytren's contracture 11/01/2012 left worse than right Enlargement of lymph nodes Esophageal reflux Esophagitis, unspecified 04/03/2011 Generalized osteoarthrosis, unspecified site History of colonic polyps 09/20/2018 Added automatically from request for surgery [id number] Hypertension Kidney disease Migraine 08/23/2009 Migraine without aura, without mention of intractable migraine without mention of status migrainosus Pain in joint, shoulder region PONV (postoperative nausea and vomiting) Pure hypercholesterolemia Sciatica 10/09/2010 Sebaceous cyst 05/01/2015 Subacute thyroiditis Thoracic aortic aneurysm without rupture 08/26/2019 Trigger thumb of left hand 08/12/2017 Added automatically from request for surgery [id number] Surgery effective Unspecified hypothyroidism Social History Tobacco Use Smoking status: Never Smokeless tobacco: Never Vaping Use Vaping Use: Never used Substance Use Topics Alcohol use: No Drug use: No Component Latest Ref Rng & Units 09/23/2021 05/04/2022 11/02/2022 Protein, Total 6.3 - 8.0 g/dL 7.3 7.5 Albumin 3.9 - 4.9 g/dL 4.2 4.3 Calcium 8.5 - 10.2 mg/dL 10.3 (H) 9.1 Bilirubin, Total 0.2 - 1.3 mg/dL 0.3 0.5 Alkaline Phosphatase 34 - 123 U/L 59 55 AST 13 - 35 U/L 17 13 Glucose 74 - 99 mg/dL 160 (H) 148 (H) BUN 7 - 21 mg/dL 17 15 Creatinine 0.58 - 0.96 mg/dL 1.29 (H) 1.32 (H) Sodium 136 - 144 mmol/L 135 (L) 138 Potassium 3.7 - 5.1 mmol/L 4.0 4.3 Chloride 97 - 105 mmol/L 97 103 CO2 22 - 30 mmol/L 24 28 Anion Gap 9 - 18 mmol/L 14 7 (L) ALT 7 - 38 U/L 12 7 eGFR- 49 eGFR-All Other Races . 40 eGFR >=60 mL/min/1.73m 42 (L) WBC 3.70 - 11.00 k/uL 8.12 8.56 RBC 3.90 - 5.20 m/uL 3.99 3.63 (L) Hemoglobin 11.5 - 15.5 g/dL 12.6 11.3 (L) Hematocrit 36.0 - 46.0 % 38.5 35.9 (L) MCV 80.0 - 100.0 fL 96.5 98.9 MCH 26.0 - 34.0 pg 31.6 31.1 MCHC 30.5 - 36.0 g/dL 32.7 31.5 RDW-CV 11.5 - 15.0 % 13.4 14.9 Platelet Count 150 - 400 k/uL 296 241 MPV 9.0 - 12.7 fL 9.7 10.2 Absolute nRBC <0.01 k/uL <0.01 <0.01 Cholesterol, Total <200 mg/dL 132 141 Triglyceride <150 mg/dL 150 (H) 138 HDL Cholesterol >39 mg/dL 39 (L) 38 (L) LDL Cholesterol <100 mg/dL 63 75 Non HDL Cholesterol <130 mg/dL 93 103 Fasting Time hrs 10 10 VLDL Cholesterol <30 mg/dL 30 (H) 28 TC:HDL Ratio <5.10 3.38 3.71 LDL:HDL Ratio <2.54 1.62 1.97 Creatinine, Ur Random (UCRR) 20.0 - 300.0 mg/dL 33.9 90.0 168.4 Albumin, Urine Random mg/L 47.5 52.8 198.3 Albumin/Creat Ratio <30 mg/g 140 (H) 59 (H) 118 (H) Hemoglobin A1C 4.3 - 5.6 % 7.4 (H) 7.6 (H) 7.6 (H) Estimated Average Glucose mg/dL 166 171 171 TSH 0.270 - 4.200 mIU/L 2.590 1.470 3.280 Free T4 0.9 - 1.7 ng/dL 1.5 1.5 1.6 Vitamin D 25 Hydroxy 31.0 - 80.0 ng/mL 41.6 35.6 42.9 ASSESSMENT/PLAN: 1. Controlled type 2 diabetes mellitus without complication, without long-term current use of insulin (HCC) - ICD9: 250.00, ICD10: E11.9 (primary diagnosis) Stable, currently controlled, continue to monitor. Continue current treatment unchanged - LANCETS - BLOOD GLUCOSE TEST STRIPS 2. Need for shingles vaccine - ICD9: V04.89, ICD10: Z23 3. Coronary artery disease involving [place] heart without angina pectoris, unspecified vessel or lesion type - ICD9: 414.01, ICD10: I25.10 Followed by [facility] - LIPID PANEL, NONFASTING 4. Decreased hemoglobin - ICD9: 285.9, ICD10: R71.0 She reports bleeding about 2 weeks ago from a rash. Recheck CBC in 1 month for a slight decrease ofCBC. On chronic OAC - CBC + DIFF 5. Gastroesophageal reflux disease, unspecified whether esophagitis present - ICD9: 530.81, ICD10: K21.9 History of Dial's esophagus, continue with PPI unchanged for now. Without symptomatic complaints - OMEPRAZOLE 20 MG CAPSULE,DELAYED RELEASE 6. Acquired hypothyroidism - ICD9: 244.9, ICD10: E03.9 Stable, currently controlled, continue to monitor. - TSH BLD 7. Type 2 diabetes mellitus with stage 3a chronic kidney disease, without long- term current use of insulin (HCC) - ICD9: 250.40, 585.3, ICD10: E11.22, N18.31 Currently well controlled, continue with current treatment unchanged - COMP METABOLIC PANEL - CBC + DIFF - LIPID PANEL BASIC - HGB A1C 8. Mixed hyperlipidemia - ICD9: 272.2, ICD10: E78.2 Continue current treatment unchanged Endorse Recommend a plant based diet such as Mediterranean diet with plenty of vegetables, fruits,whole grains, fish, chicken, turkey or plant proteins and routine exercise such as walking 9. Depression, unspecified depression type - ICD9: 311, ICD10: F32.A Trial of escitalopram 5 mg daily. Declines counseling at this time, will let us know if she changesher mind. Follow-up in 1 to 2 months if so desires. - ESCITALOPRAM 5 MG TABLET Dipika Hernandez APRN.CNS Medical Decision Making: Problems: Moderate: 2+ stable chronic illnesses Data: Unique test(s) ordered: 3+ Risk: Moderate: Drug management Medical Decision Making Level: 4 - Moderate documented in this encounterGen[facility]12-08-2022 Miscellaneous Notes* Telephone Encounter - Chantell Garcia Pss - 11/05/2022 8:26 AM EST Patient has been identified by name and date of : Yes Last office visit in this department: 05/11/2022 Labs-11/02/22 NOV-11/10/22 RX INSTRUCTIONS: Patient is out of this medication and would like a 14 day supply sen to [facility]. Patient aware RX escripted to mail away pharmacy. No need to notify patient. Patient phones requesting refills as follows: Requested Prescriptions Pending Prescriptions Disp Refills glipiZIDE (GLUCOTROL) 5 mg tablet 28 tablet 0 Sig: Take 1 tablet by mouth twice daily before meals. Please review and advise. Chantell Garcia Pss documented in this encounterGenesis Hospital11-28-2022 Instructions* Patient Instructions* Cayla Hoffman APRN.INFORMATION CODER - 10/26/2022 10:49 AM EST Lichen Sclerosus Lichen means white and mosslike. Sclerosus means scarred. What is lichen sclerosus? This is a common disease of the genital skin in women. The areas involved are the vulva and dottie-anal area. The vulva is the skin located at the entrance to the vagina. The skin in this area is highly specialized in that it performs many unique functions and to do so contains many glands and nerve endings. The covering skin is specialized also - in some areas thick and resilient, and in others thin and more fragile. Lichen sclerosus usually occurs on the vulva but can occur anywhere on the body. It can start at any age (even in childhood) but most commonly affects women 40 to 50 years of age. In this condition, the vulvar skin usually becomes thin, white, and fragile. If there has been a lot of scratching, the skin is thick and may be scarred. The cause is unknown. Very rarely, there can be a familial occurrence. It is not infectious and is not sexually transmitted. What are the symptoms? Usually, it starts with itching or burning. Other symptoms include painful intercourse, splitting of the skin, and bleeding. With time, the vulvar skin changes and becomes progressively more thick and white, and the small lips (the labia minora) begin to shrink and eventually disappear. The clitoris may become buried in the shrinking skin folds, and these folds can close over it. Rarely, the vaginal opening gradually shrinks. If the area is very itchy, the skin may be white and very thickened. This itching may be severe enough to wake you up at night. Scratching often can cause bruising. In young children, this bruising can result in a mistaken diagnosis of sexual abuse. Scratching or any irritation worsens this condition. Can lichen sclerosus be treated? The diagnosis usually must be first confirmed with a biopsy, and then therapy can be started. Treatment usually involves a topical cream or ointment in addition to general measures. A strong topical [id number] used to stop the inflammation that is attacking the skin cells in this area,causing the whitish discoloration, thinning, splitting, and scarring. This cortisone is often combined with an anti-yeast product-nystatin (Mycostatin) or ketoconazol (Nizoral). The ointment(s) are used for 12 to 16 weeks on a regular basis and then further treatments are individualized. Continued long-term daily treatment with this medication is not possible because it can cause thinning of the skin itself. After 12 to 16 weeks, when the area has improved, treatment is used intermittently, 1 to 3 times per week as needed, or only when needed. What else can I do? Avoid harsh and irritating soaps, detergents, and tight synthetic clothing that may rub or irritatethe area. To cleanse, use a mild cleaning lotion like Cetaphil cleanser or a very mild bar cleanser such as Dove (unscented) or Basis. Try not to scratch. Avoid using panty liners. How long will therapy be needed? Lichen sclerosus can be controlled. There is no definitive cure. With the previously described form of therapy, improvement is quite rapid in most cases and some people have been so improved that no further treatment has been needed. It is too early to call those patients cured; only time will tell. Most patients require maintenance treatment, using the ointment once a week or on an intermittent basis. Regular follow-up is necessary. Can I become and deliver a baby? Lichen sclerosus does not prevent you from becoming . It does not affect any of the tissuesinside you. You can continue your treatment throughout your with the supervision of you doctor. Problems are usually few with vaginal delivery, unless you have a lot of extensive scarring. Does this condition lead to cancer? Up to 5% of patients have developed skin cancer in the vulvar area associated with lichen sclerosus. Usually, they have had the condition, untreated, for years. We hope that early recognition and aggressive treatment will reduce or eliminate the risk of cancer. That is the reason close follow-up isessential. documented in this encounterGenesis Hospital11-28-2022 History of Present illness Narrative* Cayla Hoffman APRN.CNP - 10/26/2022 10:22 AM EST Images from the original note were not included. Dolores Villa is a 77 year old female who presents for problem visit vulvar irritation for 6 month(s). HPI: Irritation for the last 6 months started around the anus and now up to urethra. Last Wednesday she had 1 episode bleeding, she wasn't sure if it was from a hemorrhoid or not, no bleeding since. She is raw on the inside the labia, c/o itching & burning. She does wear a pad daily. She tries not to wear any underwear or pad at night. OB History No obstetric history on file. 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 -Was started on nebulisation and antibiotic at [facility]. -Symtoms better now. CAD (coronary artery disease) s/p PCI/CHRISTELLE to LAD with 2.75x15 Xience dilated to 3.4 Complication of anesthesia nausea, vomiting Controlled type 2 diabetes mellitus without complication, without long-term current use of insulin (HCC) 10/14/2016 Contusion of shoulder region Diverticulitis of sigmoid colon 09/17/2010 Dupuytren's contracture 11/01/2012 left worse than right Enlargement of lymph nodes Esophageal reflux Esophagitis, unspecified 04/03/2011 Generalized osteoarthrosis, unspecified site History of colonic polyps 09/20/2018 Added automatically from request for surgery [id number] Hypertension Kidney disease Migraine 08/23/2009 Migraine without aura, without mention of intractable migraine without mention of status migrainosus Pain in joint, shoulder region PONV (postoperative nausea and vomiting) Pure hypercholesterolemia Sciatica 10/09/2010 Sebaceous cyst 05/01/2015 Subacute thyroiditis Thoracic aortic aneurysm without rupture 08/26/2019 Trigger thumb of left hand 08/12/2017 Added automatically from request for surgery [id number] Surgery effective Unspecified hypothyroidism PAST SURGICAL HISTORY Procedure Laterality Date BIOPSY BREAST OPEN INCISIONAL 75 Bx of breast, incisional- bilateral CATARACT EXTRACTION HX 2012 COLON SURGERY HX COLONOSCOPY FLX DX W/COLLJ SPEC WHEN PFRMD 03/2004 Colonoscopy COLONOSCOPY FLX DX W/COLLJ SPEC WHEN PFRMD 10/12/2018 Colonoscopy EGD TRANSORAL BIOPSY SINGLE/MULTIPLE 04/03/11 ESOPHAGOGASTRODUODENOSCOPY TRANSORAL DIAGNOSTIC 10/12/2018 EGD EYE SURGERY HX Bilateral cataract surgery/ INCISE FINGER TENDON SHEATH Right 08/22/2018 Right ring trigger finger release INCISE FINGER TENDON SHEATH Left 03/16/2019 Left middle trigger finger release INCISE FINGER TENDON SHEATH Right 01/05/2020 Right middle trigger finger release INCISE FINGER TENDON SHEATH Right 09/05/2020 Right 5th trigger finger release LAMINECTOMY W/O FFD 1/2 VERT SEG LUMBAR 07/18/2018 revision of L4-L5 LAMINECTOMY,LUMBAR October 04, 2015 Surgical Procedure/Date: lumbar laminectomy L4-5/October 04, 2015 LUMPECTOMY/RADIOTHERAPY DIAG MAMM/A10 1975 right NEUROPLASTY &/TRANSPOS MEDIAN NRV CARPAL TUNNE Left 09/14/2019 Left Carpal tunnel relese PAST SURGICAL HISTORY OF 2006 left 2nd finger cyst removed PAST SURGICAL HISTORY OF cyst from face PAST SURGICAL HISTORY OF 08/22/2008 left 5th toe repair hammertoe 4th and 5th PAST SURGICAL HISTORY OF 01/30/11 s/p PCI/CHRISTELLE to LAD with 2.75x15 Xience dilated to 3.4 PAST SURGICAL HISTORY OF 2010 partial colectomy 8 in, for diverticulitis PAST SURGICAL HISTORY OF remote right foot infection, ingrwn toenail PAST SURGICAL HISTORY OF 10/06/2013 left hand 4th digit trigger release REM LESIO TRUNK,ARM,LEG 1.1 -2.0CM 05/30/15 Exc. upper mid back David cyst TONSILLECTOMY PRIMARY/SECONDARY <AGE 12 Tonsillectomy VAGINAL HYSTERECTOMY VAGINAL HYSTERECTOMY UTERUS 250 GM/< 1985 uterus FAMILY HISTORY Problem Relation Age of Onset Heart Mother Stroke Mother Hypertension Mother Hypertension Father Heart Father Stroke Father Allergies Sister Diabetes Sister Hypertension Sister Social History Tobacco Use Smoking status: Never Smokeless tobacco: Never Vaping Use Vaping Use: Never used Substance Use Topics Alcohol use: No Drug use: No Current Outpatient Medications Medication Sig glipiZIDE (GLUCOTROL) 5 mg tablet Take 1 tablet by mouth twice daily before meals. metoprolol tartrate, short acting, (LOPRESSOR) 25 mg tablet Take 1 tablet by mouth twice daily. levothyroxine (SYNTHROID) 75 mcg tablet Take 1 tablet by mouth once daily. ELIQUIS 5 mg tab(s) Take 5 mg by mouth twice daily. isosorbide mononitrate ER (IMDUR) 60 mg 24 hr tablet Take 60 mg by mouth once daily. blood sugar diagnostic (BLOOD GLUCOSE TEST) test strip Test blood sugar(s) 1 time daily and as needed. Dx: Type 2 DM - Uncontrolled E11.9 Insulin: No metFORMIN ER (GLUCOPHAGE XR) 500 mg 24 hr tablet Take 1 tablet by mouth twice daily with meals. As directed cholecalciferol (VITAMIN D3) 50 mcg (2,000 unit) tablet Take 1 tablet by mouth once daily. ACETAMINOPHEN/DIPHENHYDRAMINE (TYLENOL PM EXTRA STRENGTH ORAL) Take by mouth. Bacillus coagulans 10 billion cell cpDR Take by mouth once daily. aspirin, enteric coated (ASPIRIN, ENTERIC COATED) 81 mg EC tablet Take 1 tablet by mouth once daily. lisinopril (ZESTRIL, PRINIVIL) 10 mg tablet Take 1 tablet by mouth once daily. omeprazole (PRILOSEC) 20 mg capsule Take 1 capsule by mouth daily before breakfast. 1/2 hr before meal. famotidine (PEPCID) 20 mg tablet Take 1 tablet by mouth twice daily. rosuvastatin (CRESTOR) 40 mg tablet Take 1 tablet by mouth daily at bedtime. nitroglycerin sublingual (NITROQUICK) 0.4 mg SL tablet Dissolve 1 tablet under the tongue every 5 minutes as needed. As directed for chest pain. IF NO RELIEF CALL 911 ketoconazole (NIZORAL) 2 % cream Apply 1 application to affected area once daily. Lancets lancets Test blood sugar(s) 1 time daily and as needed. Dx: Type 2 DM - Uncontrolled E11.9 Insulin: No naproxen sodium(ALEVE 220 MG TAB) Take one(1) tablet every 8-12 hours as needed THERAPEUTIC MULTIVITAMIN TAB Take one(1) tablet daily. No current facility-administered medications for this visit. Allergies As of Date: 10/26/2022 Allergen Noted Reaction ATIVAN [LORAZEPAM] 12/07/2005 Other: See Comments BENZONATATE 04/26/2015 GI Upset HCTZ [HYDROCHLOROTHIAZIDE] 12/10/2008 Intolerance NARCOTICS [OTHER] 12/07/2005 GI Upset SEASONAL ALLERGIES 12/05/2012 Other: See Comments SULFA (SULFONAMIDE ANTIBIOTICS) 12/07/2005 Unknown Fully Assessed 10/26/2022 REVIEW OF SYSTEMS Bladder: urge incontinence Expanded ROS: N/A Allergies and current medication updated:Yes EXAM: Wt 135 lb (61.2kg) GENERAL: pleasant, female in no apparent distress HEENT: Normocephalic, atraumatic, and no lesions CHEST: Normal inspiratory effort PELVIC: external genitalia normal, normal Bartholin's glands, urethra, Carnot-Moon's glands, physiologic discharge present, cervix surgically absent, Physical Exam Genitourinary: Genitourinary Comments: Red, flaky, slight swollen, superficial open areas on inner labia, tender to touch NEURO: alert and oriented x3,exam grossly non-focal ASSESSMENT/PLAN: 1. Vaginal irritation - ICD9: 623.9, ICD10: N89.8 - THONG / TRICHOMONAS AMPLIFICATION - BACTERIAL VAGINOSIS AMPLIFICATION - Likely Lichen sclerosus - Clobetasol cream ordered - FU in 3-4 weeks or sooner if needed Cayla Hoffman APRN.CNP Medical Decision Making: Problems: Moderate: 1+ chronic illnesses with change Data: Unique test(s) ordered: 1 Risk: Low: Low risk from testing/treatment Moderate: Drug management Medical Decision Making Level: 4 - Moderate documented in this encounterGenesis Hospital11-21-2022 Miscellaneous Notes* Telephone Encounter - Liset Estrada Pss - 10/19/2022 9:23 AM EST Patient has been identified by name and date of : Yes Requested Prescriptions Pending Prescriptions Disp Refills glipiZIDE (GLUCOTROL) 5 mg tablet 28 tablet 0 Sig: Take 1 tablet by mouth twice daily before meals. RX INSTRUCTIONS: Patient aware RX will be sent to pharmacy. No need to notify patient. Liset Natalie Peñaloza documented in this encounterGenesis Hospital11-03-2022 Miscellaneous Notes* Telephone Encounter - Jennifer Singh LPN - 10/01/2022 1:17 PM EDT Patient has been identified by name and date of : Yes Patient phones for refill(s): Requested Prescriptions Pending Prescriptions Disp Refills metoprolol tartrate, short acting, (LOPRESSOR) 25 mg tablet 180 tablet 3 Sig: Take 1 tablet by mouth twice daily. levothyroxine (SYNTHROID) 75 mcg tablet 90 tablet 3 Sig: Take 1 tablet by mouth once daily. Date of last office visit in primary care: 05/11/2022 6 month follow-up: 11/10/2022 Last 2 Encounter Wt Readings: Date: Wt: 05/11/2022 60.3 kg (133 lb) 10/02/2021 59.9 kg (132 lb) Previous labs/tests for medication: Thyroid: TSH Date Value 05/04/2022 1.470 mIU/L 09/23/2021 2.590 uU/mL Blood Pressure: BUN (mg/dL) Date Value 09/23/2021 17 Sodium (mmol/L) Date Value 09/23/2021 135 Last 1 Encounter BP Readings: Date: BP: 05/11/2022 104/62 Please advise. Thank you. Jennifer Singh LPN * Telephone Encounter - Chantell Garcia Pss - 10/01/2022 12:07 PM EDT Patient has been identified by name and date of : Yes Last office visit in this department: 05/11/2022 RX INSTRUCTIONS: Patient aware RX will be sent to pharmacy. No need to notify patient. Patient phones requesting refills as follows: Requested Prescriptions Pending Prescriptions Disp Refills metoprolol tartrate, short acting, (LOPRESSOR) 25 mg tablet 180 tablet 3 Sig: Take 1 tablet by mouth twice daily. levothyroxine (SYNTHROID) 75 mcg tablet 90 tablet 3 Sig: Take 1 tablet by mouth once daily. Please review and advise. Chantell Garcia Pss documented in this encounterGenesis Hospital07-26-2022 Miscellaneous Notes* Telephone Encounter - Daphnie Melendez MA - 06/23/2022 8:17 AM EDT Patient notified of results. Daphnie Melendez MA * Telephone Encounter - Matthew Spencer MD - 06/22/2022 8:08 PM EDT Would have her take Omeprazole if needed to treat atypical reflux symptoms. If having symptoms now,should stop the famotidine and switch to omeprazole instead of waiting to finish the famotidine. Either med is okay to take with Eliquis (no interactions noted through Epic) * Telephone Encounter - Alana Rascon LPN - 06/22/2022 9:24 AM EDT Patient calling at her last appt mid April, she was given rx for Omeprazole, she has been completingher old rx of Famotidine until it is gone. [facility] and has Afib and was put on Eliquis 5 mg one tablet twice daily. Patient is asking which stomach medication should she take with the Eliquis rx? She was told to check with her PCP which medication to continue taking forher stomach? Please advise documented in this encounterCleveland [id number] History of Present illness Narrative* Matthew Spencer MD - 05/11/2022 8:40 AM EDT This note was created using Supponorriter. Subjective Dolores Villa is a 76 year old female. No chief complaint on file. SUBJECTIVE: Dolores Villa is a 76 year old year old lady here today for 6 month follow up appointment for review of medical conditions. Noted that has been more tired since October. Noted that Imdur was added by Dr. Trinh for chest pain and CAD. Heart cath showed that the LAD Pain sounds like from esophagus per Dr. Olga Macario. Was switched from Zantac (off the market) to Pepcid--does not work as well.Gets reflux about chest pain from this about once weekly. Pain across the shoulder she associates with her heart and sometimes with reflux. Gets pain going up stairs to go tobed and when walking down a slant. Does take NTG SL if pain does not resolve with resting. Also gets pain in calves. Attributes to not being active enough. States that kids and neighbor across the street will scold her for Also ongoing shoulder issues s/p surgery. Cannot curl hair on her own anymore. PAST MEDICAL HISTORY Diagnosis Date Abdominal pain, left lower quadrant Abdominal pain, unspecified site 08/22/2010 Arthritis Barretts esophagus EGD 2010 and 08/25/13 Bronchitis 07/30/2010 Pt was having cough with chest pain . -Was started on nebulisation and antibiotic at [facility]. -Symtoms better now. CAD (coronary artery disease) s/p PCI/CHRISTELLE to LAD with 2.75x15 Xience dilated to 3.4 Complication of anesthesia nausea, vomiting Controlled type 2 diabetes mellitus without complication, without long-term current use of insulin (HCC) 10/14/2016 Contusion of shoulder region Diverticulitis of sigmoid colon 09/17/2010 Dupuytren's contracture 11/01/2012 left worse than right Enlargement of lymph nodes Esophageal reflux Esophagitis, unspecified 04/03/2011 Generalized osteoarthrosis, unspecified site History of colonic polyps 09/20/2018 Added automatically from request for surgery [id number] Hypertension Kidney disease Migraine 08/23/2009 Migraine without aura, without mention of intractable migraine without mention of status migrainosus Pain in joint, shoulder region PONV (postoperative nausea and vomiting) Pure hypercholesterolemia Sciatica 10/09/2010 Sebaceous cyst 05/01/2015 Subacute thyroiditis Thoracic aortic aneurysm without rupture (HCC) 08/26/2019 Trigger thumb of left hand 08/12/2017 Added automatically from request for surgery [id number] Surgery effective Unspecified hypothyroidism Current Outpatient Medications Medication Sig famotidine (PEPCID) 20 mg tablet Take 1 tablet by mouth twice daily. rosuvastatin (CRESTOR) 40 mg tablet Take 1 tablet by mouth daily at bedtime. blood sugar diagnostic (BLOOD GLUCOSE TEST) test strip Test blood sugar(s) 1 time daily and as needed. Dx: Type 2 DM - Uncontrolled E11.9 Insulin: No metFORMIN ER (GLUCOPHAGE XR) 500 mg 24 hr tablet Take 1 tablet by mouth twice daily with meals. As directed glipiZIDE (GLUCOTROL) 5 mg tablet Take 1 tablet by mouth twice daily before meals. metoprolol tartrate, short acting, (LOPRESSOR) 25 mg tablet Take 1 tablet by mouth twice daily. levothyroxine (SYNTHROID) 75 mcg tablet Take 1 tablet by mouth once daily. nitroglycerin sublingual (NITROQUICK) 0.4 mg SL tablet Dissolve 1 tablet under the tongue every 5 minutes as needed. As directed for chest pain. IF NO RELIEF CALL 911 lisinopril (ZESTRIL, PRINIVIL) 10 mg tablet Take 1 tablet by mouth once daily. ketoconazole (NIZORAL) 2 % cream Apply 1 application to affected area once daily. Lancets lancets Test blood sugar(s) 1 time daily and as needed. Dx: Type 2 DM - Uncontrolled E11.9 Insulin: No cholecalciferol (VITAMIN D3) 50 mcg (2,000 unit) tablet Take 1 tablet by mouth once daily. ACETAMINOPHEN/DIPHENHYDRAMINE (TYLENOL PM EXTRA STRENGTH ORAL) Take by mouth. Bacillus coagulans (PROBIOTIC, B. COAGULANS,) 10 billion cell cpDR Take by mouth once daily. aspirin, enteric coated (ECOTRIN LOW STRENGTH) 81 mg ORAL EC tablet Take 1 tablet by mouth once daily. naproxen sodium(ALEVE 220 MG TAB) Take one(1) tablet every 8-12 hours as needed THERAPEUTIC MULTIVITAMIN TAB Take one(1) tablet daily. No current facility-administered medications for this visit. Review of Systems Objective BP 104/62 Pulse 87 Wt 60.3 kg (133 lb) SpO2 97% BMI 25.97 kg/m Last 5 Encounter Wt Readings: Date: Wt: 05/11/2022 60.3 kg (133 lb) 10/02/2021 59.9 kg (132 lb) 03/19/2021 60.4 kg (133 lb 3.2 oz) 03/11/2021 60.1 kg (132 lb 6.4 oz) 11/19/2020 59.4 kg (131 lb) No waist measurement recorded Estimated body mass index is 25.97 kg/m as calculated from the following: Height as of 09/20/18: 152.4 cm (5'). Weight as of this encounter: 60.3 kg (133 lb). Last 5 Encounter BP Readings: Date: BP: 05/11/2022 104/62 10/02/2021 112/60 03/19/2021 122/62 03/11/2021 114/66 11/19/2020 112/70 Physical Exam Constitutional: Appearance: Normal appearance. HENT: Head: Normocephalic. Eyes: Conjunctiva/sclera: Conjunctivae normal. Cardiovascular: Rate and Rhythm: Normal rate and regular rhythm. Heart sounds: Normal heart sounds. Pulmonary: Effort: Pulmonary effort is normal. Breath sounds: Normal breath sounds. Genitourinary: Comments: [place] in groin and slightly pink on labia; labia minora white and areas are a little raw. Musculoskeletal: Right lower leg: No edema. Left lower leg: No edema. Comments: Trace to 1+edema Skin: General: Skin is warm and dry. Neurological: General: No focal deficit present. Mental Status: She is alert and oriented to person, place, and time. Psychiatric: Mood and Affect: Mood normal. Behavior: Behavior normal. Thought Content: Thought content normal. Judgment: Judgment normal. Component Latest Ref Rng & Units 09/23/2021 05/04/2022 Protein, Total 6.3 - 8.0 g/dL 7.3 Albumin 3.9 - 4.9 g/dL 4.2 Calcium 8.5 - 10.2 mg/dL 10.3 (H) Bilirubin, Total 0.2 - 1.3 mg/dL 0.3 Alkaline Phosphatase 34 - 123 U/L 59 AST 13 - 35 U/L 17 Glucose 74 - 99 mg/dL 160 (H) BUN 7 - 21 mg/dL 17 Creatinine 0.58 - 0.96 mg/dL 1.29 (H) Sodium 136 - 144 mmol/L 135 (L) Potassium 3.7 - 5.1 mmol/L 4.0 Chloride 97 - 105 mmol/L 97 CO2 22 - 30 mmol/L 24 Anion Gap 9 - 18 mmol/L 14 ALT 7 - 38 U/L 12 eGFR- 49 eGFR-All Other Races . 40 WBC 3.70 - 11.00 k/uL 8.12 RBC 3.90 - 5.20 m/uL 3.99 Hemoglobin 11.5 - 15.5 g/dL 12.6 Hematocrit 36.0 - 46.0 % 38.5 MCV 80.0 - 100.0 fL 96.5 MCH 26.0 - 34.0 pG 31.6 MCHC 30.5 - 36.0 g/dL 32.7 RDW-CV 11.5 - 15.0 % 13.4 Platelet Count 150 - 400 k/uL 296 MPV 9.0 - 12.7 fL 9.7 Absolute nRBC <0.01 k/uL <0.01 Cholesterol, Total <200 mg/dL 132 141 Triglyceride <150 mg/dL 150 (H) 138 HDL Cholesterol >39 mg/dL 39 (L) 38 (L) LDL Cholesterol <100 mg/dL 63 75 Non HDL Cholesterol <130 mg/dL 93 103 Fasting Time hrs 10 10 VLDL Cholesterol <30 mg/dL 30 (H) 28 TC:HDL Ratio <5.10 3.38 3.71 LDL:HDL Ratio <2.54 1.62 1.97 Creatinine, Ur Random (UCRR) 20.0 - 300.0 mg/dL 33.9 90.0 Albumin, Urine Random mg/L 47.5 52.8 Albumin/Creat Ratio <30 mg/g 140 (H) 59 (H) Hemoglobin A1C 4.3 - 5.6 % 7.4 (H) 7.6 (H) Estimated Average Glucose mg/dL 166 171 TSH 0.270 - 4.200 mIU/L 2.590 1.470 Free T4 0.9 - 1.7 ng/dL 1.5 1.5 Vitamin D 25 Hydroxy 31.0 - 80.0 ng/mL 41.6 35.6 Echo Complete [facility] [address] [place] [address] Echo Complete 03/19/22 0802 MR#: [id number] Acct: [id number] Name: DOLORES VILLA Rep #: [id number] : 1945 76 From: Percy Trinh MD Attending Dr: Dr. Percy Trinh MD Status: RE G CLI Ordering Dr: Percy Trinh MD Date: 03/19/22 Location: [facility] Sex: F C Admitted: Reason For Study: CAD/ASHD Procedure This was a 2D Doppler, Color Flow transthoracic echocardiogram. The exam was of adequate technical quality. Exam performed in department. Left Ventricle Normal LV size. Left ventricular systolic function is normal. The estimated ejection fraction is 60 %. Diastolic function is indeterminate. No regional wall motion abnormalities noted. Right Ventricle Normal RV size. Normal systolic function. Atria Normal left atrium. Normal right atrium. No doppler evidence for ASD. Mitral Valve There is mild mitral annular calcification. Extension of the mitral annular calcification onto the base of the posterior mitral valve leaflet. Mild-Moderate (1-2+) mitral valve insufficiency. Tricuspid Valve Normal tricuspid valve. Mild to moderate (1-2+) tricuspid valve insufficiency. Right ventricular systolic pressure estimated to be 27 mmHg. Aortic Valve Trisinus/trileaflet aortic valve. Normal aortic valve. Pulmonic Valve The pulmonic valve is not well visualized. Mild (1+) pulmonic valve insufficiency. Great Vessels Borderline enlarge aortic root. Calcified aortic root. Pericardium/Pleural No pericardial effusion. MMode/2D Measurements Calculations LVIDd: 4.4 cm IVSd: 0.89 cm Ao root diam: 3.6 cm LVIDs: 2.2 cm LVPWd: 0.86 cm RVDd: 3.4 cm FS: 49.2 % _ LAV(MOD-bp): 44.7 ml LVAd ap4: 24.3 cm2 LVAd ap2: 20.3 cm2 LAV(MOD-bp) Indexed: 28.7 ml/m2 LVLd ap4: 7.3 cm LVLd ap2: 6.2 cm LAV(MOD-sp2): 52.6 ml EDV(MOD-sp4): 65.9 ml EDV(MOD-sp2): 55.2 ml LAV(MOD-sp4): 37.5 ml EDV(sp4-el): 69.2 ml EDV(sp2-el): 56.4 ml LVAs ap4: 13.5 cm2 LVAs ap2: 10.9 cm2 LVLs ap4: 5.4 cm LVLs ap2: 4.8 cm ESV(MOD-sp4): 27.0 ml ESV(MOD-sp2): 20.1 ml ESV(sp4-el): 28.8 ml ESV(sp2-el): 21.1 ml EF(MOD-sp4): 59.0 % EF(MOD-sp2): 63.6 % EF(sp4-el): 58.5 % _ SV(MOD-sp4): 38.9 ml SV(MOD-sp2): 35.1 ml SV(sp4-el): 40.5 ml _ LA dimension(2D): 3.5 cm LA A4 area: 15.1 cm2 RA A4 area: 10.2 cm2 Doppler Measurements Calculations MV E max evie: 87.4 cm/sec Lat Peak E' Evie: 6.0 cm/sec Med Peak E' Evie: 6.4 cm/sec MV A max evie: 71.7 cm/sec E/E' lat: 14.6 E/E' med: 13.7 MV E/A: 1.2 _ Ao V2 max: 98.8 cm/sec LV V1 max: 78.4 cm/sec PA V2 max: 88.4 cm/sec Ao max P.9 mmHg LV V1 max P.5 mmHg _ TR max evie: 244.1 cm/sec TR max P.8 mmHg ECHO/Echo Complete Interpretation Summary Left ventricular systolic function is normal. The estimated ejection fraction is 60 %. There is mild mitral annular calcification. Extension of the mitral annular calcification onto the base of the posterior mitral valve leaflet. Mild-Moderate (1-2+) mitral valve insufficiency. Mild to moderate (1-2+) tricuspid valve insufficiency. Mild (1+) pulmonic valve insufficiency. Borderline enlarge aortic root. Calcified aortic root. Right ventricular systolic pressure estimated to be 27 mmHg. Diastolic function is indeterminate. _ Ordering Physician: Percy Trinh Referring Physician: Percy Trinh Performed By: Candace Corey RCS Chest PA and Lateral [facility] Imaging Services [address] [place] [address] Chest PA and Lateral MR#: [id number] Acct: [id number] Name: DOLORES VILLA Rep #: [id number] : 1945 F 76 From: Jeffrey Jeffrey MD PCP: Dr. Matthew Spencer MD Status: REG CLI Study: Chest PA and Lateral Date of Exam: 03/19/22 Exam# [id number] Ordering Dr: Percy Trinh MD STUDY: X-RAY CHEST REASON FOR EXAM: Female, 76 years old. Chest pain with dyspnea on exertion. TECHNIQUE: Frontal and lateral views of the chest. COMPARISON: 05/10/2020. FINDINGS: The lungs are clear and expanded. There is no demonstrated pleural abnormality. Stable mild cardiomegaly. Normal mediastinum and elise. Normal visualized pulmonary arteries. Aortic tortuosity unchanged Normal visualized thoracic spine. Normal visualized ribs, clavicles, and shoulders. There is no demonstrated abnormality of the visualized soft tissue structures of the upper abdomen. RAD/Chest PA and Lateral IMPRESSION: Stable cardiomegaly with no acute or active cardiopulmonary disease. Electronically Signed: Jeffrey Jeffrey MD at 10:18 EDT , CC: Dr. Matthew Spencer MD; Dr. 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 Matthew Spencer MD Status:REG [facility] [place] Patient Name: DOLORES VILLA Study Date: 03/24/2022 Performing: Percy Trinh MD Ht: 59.84 inches 152 cm : 1945 Wt: 132.28 lbs 60 kg Age: 76 Gender: female BSA: 1.56 PROCEDURE(S) PERFORMED DC01-(39175)LHC/COR/LV CLINICAL PROFILE AND INDICATIONS Indications: Worsening Angina, Suspected CAD Heart Failure: None Stress/Imaging Date: 11/15/2020Stress Test with SPECT MPI: Negative Angina Classification Anginal Classification w/in 2 Weeks: CCS III CAD Presentations: Other: worsening angina CONCLUSIONS Elevated Left Ventricular End Diastolic Pressure Normal LV size, wall motion,and systolic function LVEF: by LV gram 65 % [place] Multivessel CAD LAD: stent: patent RECOMMENDATIONS Risk factor modification Medical therapy Case discussed / reviewed with Dr. Sanches of Interventional Cardiology DESCRIPTION OF PROCEDURE The patient arrived to the procedure lab. The risks and benefits of the procedure as well as a full description of our services here and current unavailability of surgical backup were fully explained to the patient and/or their significant other prior to the catheterization. The Timeout was completed, verifying the correct patient and procedure. The patient's procedural site was prepped and draped in the usual fashion. Local anesthetic was given subcutaneously to right radial region with Lidocaine 2%. Using a modified Seldinger technique, arterial access was obtained via the right radial artery, a 6Fr sheath was inserted. Left Coronary Artery selective angiography was performed in multiple views using a 5 Fr. 4.0 Wagoner catheter. Right Coronary Artery selective angiography was then performed in multiple views using a 5 Fr. 4.0 Wagoner catheter. Left Ventriculography was performed in DUMONT projection using a 5 Fr. Pigtail catheter. LV to AO pullback pressures were then recorded.The arterial sheath was pulled and a TR Band was applied for hemostasis CORONARY ANGIOGRAPHY DOMINANCE: Right Dominant LEFT HEART ASSESSMENT Left Ventricular Ejection Fraction: by LV Gram 65 % Normal LV wall motion Elevated Left Ventricular End Diastolic Pressure LVEDP: 22 mmHg LEFT MAIN: Angiographically normal LEFT ANTERIOR DESCENDING ARTERY: PROX LAD: Previously placed stent is patent with mild luminal irregularities CIRCUMFLEX ARTERY: PROX CIRC: Mild luminal irregularities MID CIRC: Mild luminal irregularities RIGHT CORONARY ARTERY: Mild luminal irregularities AORTIC ROOT: possible dilatation COMPLICATIONS No Complications PROCEDURE MEDICATIONS Versed 1 mg IV Fentanyl 50 mcg IV Oxygen: 2 L/min via nasal cannula Heparin given IA 03/24/2022 09:14:59 Verapamil 2.5mg, Ntg 100mcgs, 3000 units of Heparin given IA 03/24/2022 09:14:59 SUMMARY OF HEMODYNAMIC DATA Time AIR REST ECG 07:42:52 Art 118/42 (64) 09:08:19 AO 76/38 (54) SA 09:17:03 LV 83/10, 17 09:22:10 LV 99/4, 22 09:22:17 LV 96/6, 28 09:23:02 LV 90/6, 27 09:23:08 LVp 82/11, 28 09:23:15 AOp 93/46 (66) 09:23:20 Signed By Percy Trinh MD On 03/24/2022 10:06:52 Percy Trinh MD 03/24/22 1006 Date Percy Trinh MD Cosigner Signature: Date (if indicated) CC: Dr. Matthew Spencer MD; Dr. Percy Trinh MD Date Dictated: 03/24/22904 Date Transcribed: 03/24/22923 Cr 1.20 in February 2022 Assessment and Plan Encounter Diagnosis ICD-10-CM 1. Type 2 diabetes mellitus with stage 3a chronic kidney disease, without long- term current use of insulin (HCC) E11.22 COMP METABOLIC PANEL N18.31 CBC HGB A1C ALBUMIN/CREAT RATIO RND UR 2. Rash of perineum R21 3. Fatigue, unspecified type R53.83 4. Coronary artery disease involving [place] heart without angina pectoris, unspecified vessel or lesion type I25.10 lisinopril (ZESTRIL, PRINIVIL) 10 mg tablet 5. Gastroesophageal reflux disease, unspecified whether esophagitis present K21.9 omeprazole (PRILOSEC) 20 mg capsule 6. Acquired hypothyroidism E03.9 7. Mixed hyperlipidemia E78.2 TSH BLD T4 FREE/FREE THYROX 8. 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 K22.70 9. Urinary incontinence without sensory awareness N39.42 contributes to rash and irritation in perineum 10. Microalbuminuria due to type 2 diabetes mellitus (HCC) E11.29 ALBUMIN/CREAT RATIO RND UR R80.9 11. Vitamin D deficiency E55.9 VITAMIN D 25 HYDROXY ASSESSMENT/PLAN: 1 and 10. Type 2 diabetes mellitus with stage 3a chronic kidney disease, without long-term current use of insulin (HCC) - ICD9: 250.40, 585.3, ICD10: E11.22, N18.31 (primary diagnosis) Controlled. - Continue current medications - Will try to get back into regular exercise. 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 - Discussed need to stay hydrated given CKD 3 level of funtion. - Noted UACR down to 59 from prior 208 then 140. Continue present management. 2. Rash of perineum - ICD9: 782.1, ICD10: R21 Discussed irritation in perineum, especially labia minora area that is now white and macerated in appearance. Will try OTC diaper rash creams that will be barrier to moisture and prevent skin from sticking to incontinence pad. Discussed trying cornstarch powder to keep area dry. Also try to keep pad from being pressed up against perineum all the time. Further evaluation and treatment as indicated. Does take off pad and undergarments at night to allow area to dry. 3. Fatigue, unspecified type - ICD9: 780.79, ICD10: R53.83 Multifactorial. Asked her to discuss with Dr. Trinh about Imdur--still with chest pain and not sure if GI, arthritis or cardiac cause for the pain that still recurs despite the Imdur. And with BP running low, maybe dose could be lowered. Further evaluation and treatment as indicated. Also needs to increase activity as tolerated given deconditioning issue. 4. Coronary artery disease involving [place] heart without angina pectoris, unspecified vessel or lesion type - ICD9: 414.01, ICD10: I25.10 Heart cath showed sten to LAD was fine and no severe stenosis. Continue present management. Noted in Imdur--does might need adjusted. - LISINOPRIL 10 MG TABLET 5. Gastroesophageal reflux disease, unspecified whether esophagitis present - ICD9: 530.81, ICD10: K21.9 - Try PPI instead of [id number]. Further evaluation and treatment as indicated. - OMEPRAZOLE 20 MG CAPSULE,DELAYED RELEASE 6. Acquired hypothyroidism - ICD9: 244.9, ICD10: E03.9 - Instructed patient on importance of taking on an empty stomach either first thing in the morning or at bedtime. Clinically euthyroid. TSH fine. Continue to adjust dose of replacement as indicated based on symptoms and labs. 7. Mixed hyperlipidemia - ICD9: 272.2, ICD10: E78.2 - good control - Continue current medication. - Encouraged following a low carbohydrate, healthy oil intake diet. 8. 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 - ICD9: 530.85, ICD10: K22.70 Discussed that had been fine on Zantac but had to switch because of recall. Given diagnosis of Dial's would at least try 1 to 3 months on PPI. Decide after that if should stay on PPI. Discussed that with Dial's. usually recommend PPI. Up to date with EGD by Dr. Olga Macario at [facility] [place]. 9. Urinary incontinence--will continue wearing pads but noted issues with rash and skin irritation.See above management recommendations. Matthew Spencer MD [facility]* Diagnosis Type 2 diabetes mellitus with stage 3a chronic kidney disease, without long-term current use of insulin (HCC)- Primary Rash of perineum Rash and other nonspecific skin eruption Fatigue, unspecified type Coronary artery disease involving [place] heart without angina pectoris, unspecified vessel or lesion type Gastroesophageal reflux disease, unspecified whether esophagitis present Acquired hypothyroidism Unspecified hypothyroidism Mixed hyperlipidemia 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 Dial's esophagus Urinary incontinence without sensory awareness Incontinence without sensory awareness Microalbuminuria due to type 2 diabetes mellitus (HCC) Vitamin D deficiency Unspecified vitamin D deficiency [facility] encounter [facility] Miscellaneous Notes* Telephone Encounter - Shira Keane LPN - 04/02/2022 4:52 PM EDT Patient notified of providers message and verbalized understanding. * Telephone Encounter - Dipika Hernandez APRN.CNS - 04/02/2022 4:14 PM EDT cbc and metabolic panel completed at [facility], should get all other labs ordered for her * Telephone Encounter - Shira Keane LPN - 04/02/2022 1:15 PM EDT Lab work obtained and given to PAULETTE Hurley for review. * Telephone Encounter - Dipika Hernandez APRN.CNS - 04/02/2022 1:08 PM EDT get [facility] labs so we know what was done and order accordingly * Telephone Encounter - Alana Rascon LPN - 04/02/2022 10:20 AM EDT Patient calling said she had heart cath done per Dr Trinh and lab work end of February. Patient asking what lab work did you want her to do prior to her April appt with PCP? She does not know what Da had her do, she does not want to have to repeat the same labs again. Please advise [facility] Miscellaneous Notes* Telephone Encounter - Debbie Jazlyn HERNANDEZ - 03/18/2022 9:24 AM EDT Patient has been identified by name and date of : Yes Patient phones for refill(s): Pending Prescriptions Disp Refills FAMOTIDINE 20 MG TABLET 180 tablet 3 Sig: Take 1 tablet by mouth twice daily. MOOK: No Date of last office visit in primary care: 10/02/21. Next appt with pcp 05/11/22. Please advise. Thank you. Debbie Jazlyn HERNANDEZ documented [facility]09[facility] History of Past illness Narrative* Problem Noted Date Resolved Date Trigger thumb of left hand 08/12/201711/26 Overview: Added automatically from request for surgery [id number] Surgery effective Sacroiliitis, not elsewhere classified 3 05/17/2020 Esophagitis 04/03/2011 09/26/2021 SUMMARY 01/29/2011 09/26/2021 Overview: 65 year old F with known CAD (50% stenosis of RCA & 60% stenosis of the LAD) presents with unstable angina Migraine 08/23/2009 11/19/2020 Cervicalgia 06/30/2007 08/08/2007 documented as of this encounter (statuses as of 03/18/2022) [facility] of Past illness Narrative* Problem Noted Date Resolved Date Trigger thumb of left hand 08/12/201711/26 Overview: Added automatically from request for surgery [id number] Surgery effective Sacroiliitis, not elsewhere classified 3 05/17/2020 Esophagitis 04/03/2011 09/26/2021 SUMMARY 01/29/2011 09/26/2021 Overview: 65 year old F with known CAD (50% stenosis of RCA & 60% stenosis of the LAD) presents with unstable angina Migraine 08/23/2009 11/19/2020 Cervicalgia 06/30/2007 08/08/2007 documented as of this encounter (statuses as of 04/02/2022) [facility] of [facility] Narrative* Problem Noted Date Resolved Date Trigger thumb of left hand 08/12/201711/26 Overview: Added automatically from request for surgery [id number] Surgery effective Sacroiliitis, not elsewhere classified 3 05/17/2020 Esophagitis 04/03/2011 09/26/2021 SUMMARY 01/29/2011 09/26/2021 Overview: 65 year old F with known CAD (50% stenosis of RCA & 60% stenosis of the LAD) presents with unstable angina Migraine 08/23/2009 11/19/2020 Cervicalgia 06/30/2007 08/08/2007 documented as of this encounter (statuses as of 05/11/2022) [facility] Narrative* Problem Noted Date Resolved Date Trigger thumb of left hand 08/12/201711/26 Overview: Added automatically from request for surgery [id number] Surgery effective Sacroiliitis, not elsewhere classified 3 05/17/2020 Esophagitis 04/03/2011 09/26/2021 SUMMARY 01/29/2011 09/26/2021 Overview: 65 year old F with known CAD (50% stenosis of RCA & 60% stenosis of the LAD) presents with unstable angina Migraine 08/23/2009 11/19/2020 Cervicalgia 06/30/2007 08/08/2007 documented as of this encounter (statuses as of 06/23/2022) [facility] Narrative* Problem Noted Date Resolved Date Trigger thumb of left hand 08/12/201711/26 Overview: Added automatically from request for surgery [id number] Surgery effective Sacroiliitis, not elsewhere classified 3 05/17/2020 Esophagitis 04/03/2011 09/26/2021 SUMMARY 01/29/2011 09/26/2021 Overview: 65 year old F with known CAD (50% stenosis of RCA & 60% stenosis of the LAD) presents with unstable angina Migraine 08/23/2009 11/19/2020 Cervicalgia 06/30/2007 08/08/2007 documented as of this encounter (statuses as of 10/02/2022) [facility] Narrative* Problem Noted Date Resolved Date Trigger thumb of left hand 08/12/201711/26 Overview: Added automatically from request for surgery [id number] Surgery effective Sacroiliitis, not elsewhere classified 3 05/17/2020 Esophagitis 04/03/2011 09/26/2021 SUMMARY 01/29/2011 09/26/2021 Overview: 65 year old F with known CAD (50% stenosis of RCA & 60% stenosis of the LAD) presents with unstable angina Migraine 08/23/2009 11/19/2020 Cervicalgia 06/30/2007 08/08/2007 documented as of this encounter (statuses as of 10/19/2022) [facility] Narrative* Problem Noted Date Resolved Date Trigger thumb of left hand 08/12/201711/26 Overview: Added automatically from request for surgery [id number] Surgery effective Sacroiliitis, not elsewhere classified 3 05/17/2020 Esophagitis 04/03/2011 09/26/2021 SUMMARY 01/29/2011 09/26/2021 Overview: 65 year old F with known CAD (50% stenosis of RCA & 60% stenosis of the LAD) presents with unstable angina Migraine 08/23/2009 11/19/2020 Cervicalgia 06/30/2007 08/08/2007 documented as of this encounter (statuses as of 10/26/2022) [facility] Narrative* Problem Noted Date Resolved Date Trigger thumb of left hand 08/12/201711/26 Overview: Added automatically from request for surgery [id number] Surgery effective Sacroiliitis, not elsewhere classified 3 05/17/2020 Esophagitis 04/03/2011 09/26/2021 SUMMARY 01/29/2011 09/26/2021 Overview: 65 year old F with known CAD (50% stenosis of RCA & 60% stenosis of the LAD) presents with unstable angina Migraine 08/23/2009 11/19/2020 Cervicalgia 06/30/2007 08/08/2007 documented as of this encounter (statuses as of 11/05/2022) [facility] Narrative* Problem Noted Date Resolved Date Trigger thumb of left hand 08/12/201711/26 Overview: Added automatically from request for surgery [id number] Surgery effective Sacroiliitis, not elsewhere classified 3 05/17/2020 Esophagitis 04/03/2011 09/26/2021 SUMMARY 01/29/2011 09/26/2021 Overview: 65 year old F with known CAD (50% stenosis of RCA & 60% stenosis of the LAD) presents with unstable angina Migraine 08/23/2009 11/19/2020 Cervicalgia 06/30/2007 08/08/2007 documented as of this encounter (statuses as of 11/10/2022) [facility] Narrative* Problem Noted Date Resolved Date Trigger thumb of left hand 08/12/201711/26 Overview: Added automatically from request for surgery [id number] Surgery effective Sacroiliitis, not elsewhere classified 3 05/17/2020 Esophagitis 04/03/2011 09/26/2021 SUMMARY 01/29/2011 09/26/2021 Overview: 65 year old F with known CAD (50% stenosis of RCA & 60% stenosis of the LAD) presents with unstable angina Migraine 08/23/2009 11/19/2020 Cervicalgia 06/30/2007 08/08/2007 documented as of this encounter (statuses as of 11/30/2022) [facility] Narrative* Problem Noted Date Diagnosed Date Resolved Date Trigger thumb of left hand 08/12/2017 1 Overview: Added automatically from request for surgery [id number] Surgery effective Sacroiliitis, not elsewhere classified 02/07/2013 05/17/2020 Esophagitis 04/03/2011 09/26/2021 SUMMARY 01/29/2011 09/26/2021 Overview: 65 year old F with known CAD (50% stenosis of RCA & 60% stenosis of the LAD) presents with unstable angina Migraine 08/23/2009 11/19/2020 Cervicalgia 06/30/2007 08/08/2007 documented as of this encounter (statuses as of 06/17/2023) [facility]* Diagnosis Onset Date Resolution Status Angina pectoris acute Atherosclerotic heart diseas e of [place] coronary artery without angina pectoris chronic Essential hypertension chron ic Presence of stent in coronary artery January, chronic Pure hypercholesterolemia [facility] Work Phone: 1(115) 470-770003-01-2011 Evaluation note* Diagnosis Onset Date Resolution Status Angina pectoris acute Atherosclerotic heart diseas e of [place] coronary artery without angina pectoris chronic Essential hypertension chron ic Presence of stent in coronary artery January, chronic Pure hypercholesterolemia [facility] New onset atrial fibrillation acute Atherosclerotic heart diseas e of [place] coronary artery without angina pectoris chronic Essential hypertension chron ic Pure hypercholesterolemia [facility] Work Phone: 1(622) 536-123703-01-2011 Evaluation note* Diagnosis Onset Date Resolution Status Chest pain acute PAF (paroxysmal atrial fibrillation) acute Essential hypertension chron ic Presence of stent in coronary artery January, chronic Pure hypercholesterolemia [facility] Work Phone: Evaluation + Plan note Future Appointments [facility] Evaluation note* Diagnosis Coronary artery disease involving [place] heart without angina pectoris, unspecified vessel or lesion type Acquired hypothyroidism Unspecified hypothyroidism [facility]* Diagnosis Vaginal irritation- Primary Unspecified noninflammatory disorder of vagina [facility] [place] [facility]* Diagnosis Controlled type 2 diabetes mellitus without complication, without long-term current use of insulin (HCC)- Primary Need for shingles vaccine Need for prophylactic vaccination and inoculation against other viral diseases Coronary artery disease involving [place] heart without angina pectoris, unspecified vessel or lesion type Decreased hemoglobin Anemia, unspecified Gastroesophageal reflux disease, unspecified whether esophagitis present Acquired hypothyroidism Unspecified hypothyroidism Type 2 diabetes mellitus with stage 3a chronic kidney disease, without long-term current use of insulin (HCC) Mixed hyperlipidemia Depression, unspecified depression type [facility] [place]* Diagnosis Onset Date Resolution Status PAF (paroxysmal atrial fibrillation) acute Atherosclerotic heart diseas e of [place] coronary artery without angina pectoris chronic Essential hypertension chron ic Pure hypercholesterolemia ch [facility] Work Phone: Evaluation note* Diagnosis Type 2 diabetes mellitus with stage 3a chronic kidney disease, without long-term current use of insulin (HCC)- Primary Acquired hypothyroidism Unspecified hypothyroidism Coronary artery disease involving [place] heart without angina pectoris, unspecified vessel or lesion type Microalbuminuria due to type 2 diabetes mellitus (HCC) Vitamin D deficiency Unspecified vitamin D deficiency 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 Dial's esophagus Dilated aortic root (HCC) Thoracic aortic ectasia [facility] [place] [facility]* Diagnosis Acute cough- Primary Bacterial sinusitis Unspecified sinusitis (chronic) documented in this encounter [facility] note* Diagnosis Chronic shoulder pain, unspecified laterality- Primary PAF (paroxysmal atrial fibrillation) (HCC) Atrial fibrillation Thoracic aortic aneurysm without rupture, unspecified part (HCC) Acquired hypothyroidism Unspecified hypothyroidism Mixed hyperlipidemia Hypertensive kidney disease with stage 3a chronic kidney disease (HCC) Type 2 diabetes mellitus with stage 3a chronic kidney disease, without long-term current use of insulin ([facility]) Encounter for immunization Need for other specified prophylactic vaccination against single bacterial disease [facility] [place] [facility]* Diagnosis Swelling of limb- Primary Popliteal fullness Other musculoskeletal symptoms referable to limbs documented in this encounter [facility] [place] note* Diagnosis Controlled type 2 diabetes mellitus without complication, without long-term current use of insulin (HCC)- Primary PAF (paroxysmal atrial fibrillation) (HCC) Atrial fibrillation Stage 3b chronic kidney disease (HCC) Status post replacement of left shoulder joint documented in this encounter [facility] [place] [facility]* Diagnosis Gastroesophageal reflux disease, unspecified whether esophagitis present documented in this encounter [facility] [place]* Diagnosis Acquired hypothyroidism Unspecified hypothyroidism documented in this encounter [facility] note* Diagnosis Medicare annual wellness visit, subsequent- Primary Routine general medical examination at a health care facility Controlled type 2 diabetes mellitus without complication, without long-term current use of insulin (HCC) Acquired hypothyroidism Unspecified hypothyroidism Vitamin D deficiency Unspecified vitamin D deficiency Stage 3b chronic kidney disease (HCC) PURE HYPERCHOLESTEROLEM Pure hypercholesterolemia Coronary artery disease involving [place] heart without angina pectoris, unspecified vessel or lesion type 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 Dial's esophagus Thoracic aortic aneurysm without rupture, unspecified part ([facility]) Encounter for long-term current use of medication documented [facility] this [facility] [place]* Diagnosis Acute cough documented in this encounter [facility] note* Diagnosis Rib pain on right side Chest pain, unspecified documented in this encounter [facility] note* Diagnosis Vulvar lesion- Primary Other specified noninflammatory disorder of vulva and perineum Cellulitis of perineum Cellulitis and abscess of trunk documented in this [facility] [place]* Diagnosis Eyelid lesion- Primary Unspecified disorder of eyelid documented in this encounter [facility] [place]* Diagnosis Acquired hypothyroidism Unspecified hypothyroidism documented in this [facility] [place]* Diagnosis Acquired hypothyroidism Unspecified hypothyroidism documented in this encounter [facility] [place]* Diagnosis Gastroesophageal reflux disease, unspecified whether esophagitis present 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 Dial's esophagus documented in this encounter [facility] [place]* Diagnosis Rhinosinusitis- Primary Unspecified sinusitis (chronic) Acute cough documented in this encounter [facility] note* Diagnosis Acute cough documented in this encounter [facility] note* Diagnosis Controlled type 2 diabetes mellitus without complication, without long-term current use of insulin (HCC) documented in this encounter [facility] [place]* Diagnosis Gastroesophageal reflux disease, unspecified whether esophagitis present documented in this encounter [facility] note* Diagnosis Controlled type 2 diabetes mellitus without complication, without long-term current use of insulin (HCC) documented in this encounter [facility] note* Diagnosis Fall, initial encounter- Primary Rib pain on left side Chest pain, unspecified Left flank pain Abdominal pain, unspecified site documented in this encounter [facility] [place]* Diagnosis Fall, initial encounter Rib pain on left side Chest pain, unspecified Left flank pain Abdominal pain, unspecified site documented in this encounter [facility] [place]* Diagnosis Medicare annual wellness visit, subsequent- Primary Routine general medical examination at a health care facility Controlled type 2 diabetes mellitus with microalbuminuria, without long-term current use of insulin (HCC) Stage 3b chronic kidney disease (HCC) Acquired hypothyroidism Unspecified hypothyroidism Persistent atrial fibrillation (HCC) Atrial fibrillation Coronary artery disease involving [place] heart without angina pectoris, unspecified vessel or lesion type Vitamin D deficiency Unspecified vitamin D deficiency Pure hypercholesterolemia Encounter for long-term current use of medication Encounter for immunization Need for other specified prophylactic vaccination against single bacterial disease [facility] [place] [facility]* Diagnosis Onset Date Resolution Status Admit Date Cardiomyopathy chronic August 14, 2025 2:15pm Coronary artery disease chronic S eptember 2024 2:15pm Essential hypertension chronic Se ptember 2024 2:15pm Longstanding persistent atri al fibrillation chronic August 14, 2025 2:15pm Mitral valve regurgitation chronic August 14, 2025 2:15pm Presence of stent in coronar y artery January, chronic August 14, 2025 2:15pm Pure hypercholesterolemia chronic August 14, 2025 2:15pm Tricuspid regurgitation chronic S eptember 2024 2:15pm [facility] Work Phone: Hospital course Narrative No data available for this section [facility] Discharge instructions No data available for this section [facility] Progress note No data available for this section [facility] Reason for referral (narrative)* Outpatient Procedure (Urgent) - Closed Specialty Diagnoses / Procedures Referred By Contac t Referred To Contact [facility] Diagnoses Swelling of limb Popliteal fullness Procedures US LEG VEIN DVT ENRIKE VAS LAB DUP-SCAN XTR VEINS COMPLETE BILATERAL STUDY Matthew Spencer MD [address] [place] [address] [facility] [address] [place] [id number] Referral ID Status Reason Start Date Expiration Date V isits Requested Visits Authorized [id number] Closed Auto-Generate d Referral 11/24/2023 11/23/2024 1 1 [facility] for referral (narrative)* Outpatient Procedure (Routine) - Authorized Specialty Diagnoses / Procedures Referred By Blaise chavez Referred To Contact [facility] Diagnoses Gastroesophageal reflux disease, unspecified whether esophagitis present 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 Procedures EGD DIAGNOSTIC ESOPHAGOGASTRODUODENOSC OPY TRANSORAL DIAGNOSTIC Maurilio Garcia MD [address] [facility] [place] [address] [facility] [address] [place] [address] Referral ID Status Reason Start Date Expiration Date Visits Requested Visits Authorized [id number] Authorized Auto-Generat ed Referral 01/01/2025 05/31/2025 1 1 [facility] for referral (narrative)No reason for referral information [facility]WWad[facility] Work Phone: Reason for visit Narrative* Diagnostic Procedure Only (Routine) - Closed Specialty Diagnoses / Procedures Referred By Blaise chavez Referred To Contact XR IMAGING Diagnoses Fall, initial encounter Rib pain on left side Left flank pain Procedures XR RIBS/CHEST 3V AP RIB/OBLS/CXR LEFT RADEX RIBS UNI W/POSTEROANT CH MINIMUM 3 VIEWS Henrique Garcia APRN.INFORMATION CODER [address] [place] [address] Phone: tel: fax: XR IMAGING [facility] Referral ID Status Reason Start Date Expiration Date V isits Requested Visits Authorized [id number] Closed Auto-Generate d Referral 05/25/2025 06/24/2026 1 1 [facility] Summary Purpose Family History No Family History Records Found Relationship Condition Age at Onset Recorded Date/T christin mother Myocardial infarction Unknown father Myocardial infarction Unknown Hypertension Unknown brother Coronary artery disease Unknown Cerebrovascular accident (CVA) Unknown brother Myocardial infarction Unknown Coronary artery disease Unknown sister Myocardial infarction Unknown Advance Directives No Advanced Directives Records Found Advance Directive Response Recorded Date/ Time Advance Directives Yes April 11 5 5:34am Living Will Yes May 10, 2020 5:56pm Power of Licensing Engineer Yes May 10 5:56pm Documents on File Type Date Recorded 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 Advance Directive(s) Advance Directive(s) 09/05/2020 12:20 PM Advance Directive(s) 08/29/2020 12:49 PM Advance Directive(s) 01/05/2020 9:07 AM Advance Directive(s) 07/20/2019 11:19 AM Advance Directive(s) 03/16/2019 11:40 AM Advance Directive(s) 10/12/2018 6:36 AM Advance Directive(s) 09/27/2018 1:30 PM Advance Directive(s) 08/11/2018 11:20 AM Advance Directive(s) 08/08/2018 5:09 PM Advance Directive(s) 09/02/2017 11:00 AM Advance Directive(s) 01/26/2012 12:00 AM Advance Directive(s) 01/13/2007 12:00 AM Advance Directive Response Recorded Date/ Time Advance Directives Yes March 24 7:42am Living Will Yes March 24, 2022 7:42am Power of Licensing Engineer Yes March 24 7:42am Advance Directive Response Recorded Date/ Time Advance Directives on File Yes March 24, 2022 7:42am Name of Medical Power of Licensing Engineer Love Bagley- daughter March 24, 2022 7:42am Advance Directives Yes March 24 7:42am Living Will Yes March 24, 2022 7:42am Power of Licensing Engineer Yes March 24 7:42am Documents on File Type Date Recorded 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 Advance Directive(s) 01/26/2012 Advance Directive(s) 01/13/2007 Advance Directive Response Recorded Date/ Time Name of Medical Power of Licensing Engineer love November 16, 2022 2:27pm Advance Directives Yes March 24 6:42am Living Will Yes November 16 2:27pm Power of Licensing Engineer Yes November 16, 2022 2:27pm Advance Directive Response Recorded Date/ Time Advance Directives Yes March 24 7:42am Living Will Yes November 16 3:27pm Power of Licensing Engineer Yes November 16, 2022 3:27pm Documents on File Type Date Recorded 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 Advance Directive(s) 01/26/2012 Advance Directive(s) 01/13/2007 Advance Directive Response Recorded Date/ Time Living Will No January 07 2:04pm Power of Licensing Engineer No January 07, 2025 2:04pm Advance Directives Yes March 24, 022 7:42am Advance Directive Response Recorded Date/ Time Advance Directives Yes March 24 7:42am Chief Complaint and Reason for Visit Chief Complaint 10 m fu INT LABS Reason for Visit Angina pectoris Atherosclerotic heart disease of [place] coronary artery without angina pectoris Essential hypertension Presence of stent in coronary artery Pure hypercholesterolemia Chief Complaint 10 m fu INT LABS CAD/ASHD chest pain chest pain Reason for Visit Angina pectoris Atherosclerotic heart disease of [place] coronary artery without angina pectoris Essential hypertension Presence of stent in coronary artery Pure hypercholesterolemia Chief Complaint 10 m fu INT LABS CAD/ASHD chest pain chest pain INT LABS Reason for Visit Angina pectoris Atherosclerotic heart disease of [place] coronary artery without angina pectoris Essential hypertension Presence of stent in coronary artery Pure hypercholesterolemia Chief Complaint 10 m fu INT LABS CAD/ASHD chest pain chest pain INT LABS 3 M FU E-ORDER Reason for Visit Angina pectoris Atherosclerotic heart disease of [place] coronary artery without angina pectoris Essential hypertension Presence of stent in coronary artery Pure hypercholesterolemia New onset atrial fibrillation Atherosclerotic heart disease of [place] coronary artery without angina pectoris Essential hypertension Pure hypercholesterolemia Chief Complaint 3 M FU PALPITATIONS Reason for Visit PAF (paroxysmal atri al fibrillation) Atherosclerotic heart disease of [place] coronary artery without angina pectoris Essential hypertension Pure hypercholesterolemia Chief Complaint 1 Y FU L[place]ISCAN CHEST PAIN LEXISCAN CHEST PAIN Reason for Visit Chest pain PAF (paroxysmal atrial fibrillation) Essential hypertension Presence of stent in coronary artery Pure hypercholesterolemia Chief Complaint Admit Date chest pain January 07, 2025 1 1:54am 6 M FU January 09, 2025 10:43am CHEST PAIN January 24, 2025 6:23am CHEST PAIN January 25, 2025 12:16pm Reason for Visit Admit Date Cardiomyopathy January 09, 2025 10:43am Coronary artery disease January 09, 025 10:43am Essential hypertension January 09 10:43am Longstanding persistent atrial fibrillat ion January 09, 2025 10:43am Mitral valve regurgitation December 10:43am Presence of stent in coronary artery Feb ruary 2024 10:43am Pure hypercholesterolemia January 09, 2025 10:43am Tricuspid regurgitation January 09, 025 10:43am Chest pain January 09, 2025 10:43am Chief Complaint Admit Date 6 M FU August 14, 2025 2:15pm Reason for Visit Admit Date Cardiomyopathy August 14, 2025 2:15pm Coronary artery disease August 14, 2025 2:15pm Essential hypertension August 14, 025 2:15pm Longstanding persistent atrial fibrillat ion August 14, 2025 2:15pm Mitral valve regurgitation July 2:15pm Presence of stent in coronary artery Sep tember 2024 2:15pm Pure hypercholesterolemia July 2:15pm Tricuspid regurgitation August 14, 2025 2:15pm Reason for Referral Specialty Diagnoses / Procedures Referred By Blaise chavez Referred To Contact General Surgery Diagnoses Gastroesophageal reflux disease, unspecified whether esophagitis present 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 Procedures CONSULT TO GENERAL SURGERY OFFICE/OUTPATIENT [facility] 60 MINUTES Dipika Hernandez, PROCESS LABORATORY SPECIALIST.TRIM STENCIL MAKER [address] [place] [address] Referral ID Status Reason Start Date Expiration Date Visits Requested Visits Authorized [id number] Authorized PCP Requested Referral 12/18/2024 12/18/2025 1 1 Specialty Diagnoses / Procedures Referred By Blaise chavez Referred To Contact [facility] Diagnoses Bilateral carotid artery stenosis Procedures US CAROTID ARTERIES ENRIKE VAS LAB DUPLEX SCAN EXTRACRANIAL ART COMPL BI STUDY Dipika Hernandez, PROCESS LABORATORY SPECIALIST.TRIM STENCIL MAKER [address] [place] [address] [facility] [address] [place] [address] Referral ID Status Reason Start Date Expiration Date Visits Requested Visits Authorized [id number] Authorized Auto-Generat ed Referral 06/17/2025 12/18/2025 1 1 Specialty Diagnoses / Procedures Referred By Blaise chavez Referred To Contact Ophthalmology Diagnoses Eyelid lesion Procedures CONSULT TO OPHTHALMOLOGY OFFICE/OUTPATIENT [facility] 60 MINUTES Roel Elkins PA-C [address] [place] [address] Referral ID Status Reason Start Date Expiration Date Visits Requested Visits Authorized [id number] Authorized PCP Requested Referral 4 11/18/2025 1 1 Additional Source Comments INFORMATION SOURCE (unrecogn ized section and content) DATE CREATED AUTHOR 01/05/2020 [facility] DATE CREATED AUTHOR AUTHOR'S ORGANIZ ATION 11/27/2023 [facility] DATE CREATED AUTHOR AUTHOR'S ORGANIZ ATION 03/28/2024 [facility] ([place]) DATE CREATED AUTHOR AUTHOR'S ORGANIZ ATION 09/27/2025 [facility] DATE CREATED AUTHOR AUTHOR'S ORGANIZ ATION 10/02/2025 [facility] Goals (unrecognized section and content) Goals may be documented in a n alternate sectionGoals may be documented in an alternate sectionGoals may be documented in an alternate sectionGoals may be documented in an alternate sectionGoals may be documented in an alternate sectionGoals may be documented in an alternate sectionGoals may be documented in an alternate section No data available for this section No data available for this section No data available for this sectionGoals may be documented in an alternate sectionGoals may be documented in an alternate section Source Comments (unrecognize d section and content) In the event this informatio n is protected by the Federal Confidentiality of Alcohol and Drug Abuse Patient Records regulations: The Federal rules restrict any use of the information to criminally investigate or prosecute any alcohol or drug abuse patient.[facility] the event this information is protected by the Federal Confidentiality of Alcohol and Drug Abuse Patient Records regulations: The Federal rules restrict any use of the information to criminally investigate or prosecute any alcohol or drug abuse patient.[facility] HospitalIn the event this information is protected by the Federal Confidentiality of Alcohol and Drug Abuse Patient Records regulations: The Federal rules restrict any use of the information to criminally investigate or prosecute any alcohol or drug abuse patient.[facility] HospitalIn the event this information is protected by the Federal Confidentiality of Alcohol and Drug Abuse Patient Records regulations: The Federal rules restrict any use of the information to criminally investigate or prosecute any alcohol or drug abuse patient.[facility] HospitalIn the event this information is protected by the Federal Confidentiality of Alcohol and Drug Abuse Patient Records regulations: The Federal rules restrict any use of the information to criminally investigate or prosecute any alcohol or drug abuse patient.[facility] HospitalIn the event this information is protected by the Federal Confidentiality of Alcohol and Drug Abuse Patient Records regulations: The Federal rules restrict any use of the information to criminally investigate or prosecute any alcohol or drug abuse patient.[facility] HospitalIn the event this information is protected by the Federal Confidentiality of Alcohol and Drug Abuse Patient Records regulations: The Federal rules restrict any use of the information to criminally investigate or prosecute any alcohol or drug abuse patient.[facility] HospitalIn the event this information is protected by the Federal Confidentiality of Alcohol and Drug Abuse Patient Records regulations: The Federal rules restrict any use of the information to criminally investigate or prosecute any alcohol or drug abuse patient.[facility] HospitalIn the event this information is protected by the Federal Confidentiality of Alcohol and Drug Abuse Patient Records regulations: The Federal rules restrict any use of the information to criminally investigate or prosecute any alcohol or drug abuse patient.[facility] HospitalIn the event this information is protected by the Federal Confidentiality of Alcohol and Drug Abuse Patient Records regulations: The Federal rules restrict any use of the information to criminally investigate or prosecute any alcohol or drug abuse patient.[facility] HospitalIn the event this information is protected by the Federal Confidentiality of Alcohol and Drug Abuse Patient Records regulations: The Federal rules restrict any use of the information to criminally investigate or prosecute any alcohol or drug abuse patient.[facility] HospitalIn the event this information is protected by the Federal Confidentiality of Alcohol and Drug Abuse Patient Records regulations: The Federal rules restrict any use of the information to criminally investigate or prosecute any alcohol or drug abuse patient.[facility] HospitalIn the event this information is protected by the Federal Confidentiality of Alcohol and Drug Abuse Patient Records regulations: The Federal rules restrict any use of the information to criminally investigate or prosecute any alcohol or drug abuse patient.[facility] HospitalIn the event this information is protected by the Federal Confidentiality of Alcohol and Drug Abuse Patient Records regulations: The Federal rules restrict any use of the information to criminally investigate or prosecute any alcohol or drug abuse patient.[facility] HospitalIn the event this information is protected by the Federal Confidentiality of Alcohol and Drug Abuse Patient Records regulations: The Federal rules restrict any use of the information to criminally investigate or prosecute any alcohol or drug abuse patient.[facility] HospitalIn the event this information is protected by the Federal Confidentiality of Alcohol and Drug Abuse Patient Records regulations: The Federal rules restrict any use of the information to criminally investigate or prosecute any alcohol or drug abuse patient.[facility] HospitalIn the event this information is protected by the Federal Confidentiality of Alcohol and Drug Abuse Patient Records regulations: The Federal rules restrict any use of the information to criminally investigate or prosecute any alcohol or drug abuse patient.[facility] HospitalIn the event this information is protected by the Federal Confidentiality of Alcohol and Drug Abuse Patient Records regulations: The Federal rules restrict any use of the information to criminally investigate or prosecute any alcohol or drug abuse patient.[facility] HospitalIn the event this information is protected by the Federal Confidentiality of Alcohol and Drug Abuse Patient Records regulations: The Federal rules restrict any use of the information to criminally investigate or prosecute any alcohol or drug abuse patient.[facility] HospitalIn the event this information is protected by the Federal Confidentiality of Alcohol and Drug Abuse Patient Records regulations: The Federal rules restrict any use of the information to criminally investigate or prosecute any alcohol or drug abuse patient.[facility] HospitalIn the event this information is protected by the Federal Confidentiality of Alcohol and Drug Abuse Patient Records regulations: The Federal rules restrict any use of the information to criminally investigate or prosecute any alcohol or drug abuse patient.[facility] HospitalIn the event this information is protected by the Federal Confidentiality of Alcohol and Drug Abuse Patient Records regulations: The Federal rules restrict any use of the information to criminally investigate or prosecute any alcohol or drug abuse patient.[facility] HospitalIn the event this information is protected by the Federal Confidentiality of Alcohol and Drug Abuse Patient Records regulations: The Federal rules restrict any use of the information to criminally investigate or prosecute any alcohol or drug abuse patient.[facility] HospitalIn the event this information is protected by the Federal Confidentiality of Alcohol and Drug Abuse Patient Records regulations: The Federal rules restrict any use of the information to criminally investigate or prosecute any alcohol or drug abuse patient.[facility] HospitalIn the event this information is protected by the Federal Confidentiality of Alcohol and Drug Abuse Patient Records regulations: The Federal rules restrict any use of the information to criminally investigate or prosecute any alcohol or drug abuse patient.[facility] HospitalIn the event this information is protected by the Federal Confidentiality of Alcohol and Drug Abuse Patient Records regulations: The Federal rules restrict any use of the information to criminally investigate or prosecute any alcohol or drug abuse patient.[facility] HospitalIn the event this information is protected by the Federal Confidentiality of Alcohol and Drug Abuse Patient Records regulations: The Federal rules restrict any use of the information to criminally investigate or prosecute any alcohol or drug abuse patient.[facility] HospitalIn the event this information is protected by the Federal Confidentiality of Alcohol and Drug Abuse Patient Records regulations: The Federal rules restrict any use of the information to criminally investigate or prosecute any alcohol or drug abuse patient.[facility] HospitalIn the event this information is protected by the Federal Confidentiality of Alcohol and Drug Abuse Patient Records regulations: The Federal rules restrict any use of the information to criminally investigate or prosecute any alcohol or drug abuse patient.[facility] HospitalIn the event this information is protected by the Federal Confidentiality of Alcohol and Drug Abuse Patient Records regulations: The Federal rules restrict any use of the information to criminally investigate or prosecute any alcohol or drug abuse patient.[facility] HospitalIn the event this information is protected by the Federal Confidentiality of Alcohol and Drug Abuse Patient Records regulations: The Federal rules restrict any use of the information to criminally investigate or prosecute any alcohol or drug abuse patient.[facility] HospitalIn the event this information is protected by the Federal Confidentiality of Alcohol and Drug Abuse Patient Records regulations: The Federal rules restrict any use of the information to criminally investigate or prosecute any alcohol or drug abuse patient.[facility] HospitalIn the event this information is protected by the Federal Confidentiality of Alcohol and Drug Abuse Patient Records regulations: The Federal rules restrict any use of the information to criminally investigate or prosecute any alcohol or drug abuse patient.[facility] HospitalIn the event this information is protected by the Federal Confidentiality of Alcohol and Drug Abuse Patient Records regulations: The Federal rules restrict any use of the information to criminally investigate or prosecute any alcohol or drug abuse patient.[facility] HospitalIn the event this information is protected by the Federal Confidentiality of Alcohol and Drug Abuse Patient Records regulations: The Federal rules restrict any use of the information to criminally investigate or prosecute any alcohol or drug abuse patient.[facility] HospitalIn the event this information is protected by the Federal Confidentiality of Alcohol and Drug Abuse Patient Records regulations: The Federal rules restrict any use of the information to criminally investigate or prosecute any alcohol or drug abuse patient.[facility] HospitalIn the event this information is protected by the Federal Confidentiality of Alcohol and Drug Abuse Patient Records regulations: The Federal rules restrict any use of the information to criminally investigate or prosecute any alcohol or drug abuse patient.[facility] HospitalIn the event this information is protected by the Federal Confidentiality of Alcohol and Drug Abuse Patient Records regulations: The Federal rules restrict any use of the information to criminally investigate or prosecute any alcohol or drug abuse patient.[facility] HospitalIn the event this information is protected by the Federal Confidentiality of Alcohol and Drug Abuse Patient Records regulations: The Federal rules restrict any use of the information to criminally investigate or prosecute any alcohol or drug abuse patient.[facility] HospitalIn the event this information is protected by the Federal Confidentiality of Alcohol and Drug Abuse Patient Records regulations: The Federal rules restrict any use of the information to criminally investigate or prosecute any alcohol or drug abuse patient.[facility] HospitalIn the event this information is protected by the Federal Confidentiality of Alcohol and Drug Abuse Patient Records regulations: The Federal rules restrict any use of the information to criminally investigate or prosecute any alcohol or drug abuse patient.[facility] HospitalIn the event this information is protected by the Federal Confidentiality of Alcohol and Drug Abuse Patient Records regulations: The Federal rules restrict any use of the information to criminally investigate or prosecute any alcohol or drug abuse patient.[facility] HospitalIn the event this information is protected by the Federal Confidentiality of Alcohol and Drug Abuse Patient Records regulations: The Federal rules restrict any use of the information to criminally investigate or prosecute any alcohol or drug abuse patient.[facility] HospitalIn the event this information is protected by the Federal Confidentiality of Alcohol and Drug Abuse Patient Records regulations: The Federal rules restrict any use of the information to criminally investigate or prosecute any alcohol or drug abuse patient.[facility] HospitalIn the event this information is protected by the Federal Confidentiality of Alcohol and Drug Abuse Patient Records regulations: The Federal rules restrict any use of the information to criminally investigate or prosecute any alcohol or drug abuse patient.[facility] HospitalIn the event this information is protected by the Federal Confidentiality of Alcohol and Drug Abuse Patient Records regulations: The Federal rules restrict any use of the information to criminally investigate or prosecute any alcohol or drug abuse patient.[facility] HospitalIn the event this information is protected by the Federal Confidentiality of Alcohol and Drug Abuse Patient Records regulations: The Federal rules restrict any use of the information to criminally investigate or prosecute any alcohol or drug abuse patient.[facility] HospitalIn the event this information is protected by the Federal Confidentiality of Alcohol and Drug Abuse Patient Records regulations: The Federal rules restrict any use of the information to criminally investigate or prosecute any alcohol or drug abuse patient.[facility] HospitalIn the event this information is protected by the Federal Confidentiality of Alcohol and Drug Abuse Patient Records regulations: The Federal rules restrict any use of the information to criminally investigate or prosecute any alcohol or drug abuse patient.[facility] HospitalIn the event this information is protected by the Federal Confidentiality of Alcohol and Drug Abuse Patient Records regulations: The Federal rules restrict any use of the information to criminally investigate or prosecute any alcohol or drug abuse patient.[facility] HospitalIn the event this information is protected by the Federal Confidentiality of Alcohol and Drug Abuse Patient Records regulations: The Federal rules restrict any use of the information to criminally investigate or prosecute any alcohol or drug abuse patient.[facility] HospitalIn the event this information is protected by the Federal Confidentiality of Alcohol and Drug Abuse Patient Records regulations: The Federal rules restrict any use of the information to criminally investigate or prosecute any alcohol or drug abuse patient.[facility] HospitalIn the event this information is protected by the Federal Confidentiality of Alcohol and Drug Abuse Patient Records regulations: The Federal rules restrict any use of the information to criminally investigate or prosecute any alcohol or drug abuse patient.[facility] HospitalIn the event this information is protected by the Federal Confidentiality of Alcohol and Drug Abuse Patient Records regulations: The Federal rules restrict any use of the information to criminally investigate or prosecute any alcohol or drug abuse patient.[facility] HospitalIn the event this information is protected by the Federal Confidentiality of Alcohol and Drug Abuse Patient Records regulations: The Federal rules restrict any use of the information to criminally investigate or prosecute any alcohol or drug abuse patient.[facility] HospitalIn the event this information is protected by the Federal Confidentiality of Alcohol and Drug Abuse Patient Records regulations: The Federal rules restrict any use of the information to criminally investigate or prosecute any alcohol or drug abuse patient.[facility] HospitalIn the event this information is protected by the Federal Confidentiality of Alcohol and Drug Abuse Patient Records regulations: The Federal rules restrict any use of the information to criminally investigate or prosecute any alcohol or drug abuse patient.[facility] HospitalIn the event this information is protected by the Federal Confidentiality of Alcohol and Drug Abuse Patient Records regulations: The Federal rules restrict any use of the information to criminally investigate or prosecute any alcohol or drug abuse patient.[facility] Reason for Visit (unrecogniz ed section and content) Reason Comments Prescription Refills Reason Comments Patient Question labs Reason Comments F/U 6 months Reason Comments Medication Question Reason Onset Date Comments Refill Request 10/01/2022 Reason Comments Refill Request Reason Comments vular irritation Pt had some bleeding Wednesday, pt has had a hysterectomy Reason Onset Date Comments Refill Request 11/05/2022 Reason Comments F/U 6 Month Reason Onset Date Comments Refill Request 06/16/2023 Reason Comments F/U 6 months Labs prior Reason Comments Sinus Problem sinus pressure drain age, left side ear and jaw pain x 1 week Reason Onset Date Comments Refill Request 07/30/2023 prophylaxis antibiotics 07/30/2023 Reason Comments Faxed to [facility] Reason Comments Information Reason Comments Orders Reason Comments [facility] calling for OV notes appears t o be scammer Reason Comments F/U 6 months Pre-Op Exam Dr. 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 Reason Comments Same Day Appointment Bilateral leg swell ing x 6 months with last 2 weeks worse Reason Comments Hospital F/U Reason Onset Date Comments Refill Request 03/22/2024 Reason Onset Date Comments Refill Request 04/18/2024 Reason Comments Medicare Wellness Exam Labs prior Reason Comments Problem Visit Reason Comments Results Reason Onset Date Comments Refill Request 09/26/2024 Reason Comments vaginal lumps Reason Onset Date Comments Refill Request 11/09/2024 Reason Comments Eye Problem Right eye red bumps under eye x 3 days Reason Comments FYI-No Action Needed Reason Onset Date Comments Refill Request 12/02/2024 Reason Comments F/U 6 Month Reason Onset Date Comments Refill Request 12/20/2024 Using new mail o rder Reason Comments Consult EGD, 2018 last EGD Specialty Diagnoses / Procedures Referred By Blaise chavez Referred To Contact General Surgery Diagnoses Gastroesophageal reflux disease, unspecified whether esophagitis present 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 Procedures CONSULT TO GENERAL SURGERY OFFICE/OUTPATIENT [facility] 60 MINUTES Dipika Hernandez 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 [address] [place] [address] Referral ID Status Reason Start Date Expiration Date V isits Requested Visits Authorized [id number] Closed PCP Requested Referral 12/18/2024 12/18/2025 1 1 Reason Comments Results, Lab Reason Comments Head Congestion drainage, cough x 3 weeks Reason Onset Date Comments Results 02/05/2025 Reason Onset Date Comments Refill Request 02/17/2025 Reason Comments 01-01-2025 EGD [place], Reason Onset Date Comments Refill Request 03/08/2025 Reason Comments weight loss Reason Onset Date Comments Refill Request 04/30/2025 Reason Comments Fall Back Pain Reason Comments Fall happened on Wednesday w hile climbing stairs states she hit her flank/rib area on metal handrail Reason Comments Lab Orders Reason Comments Medicare Wellness Exam Reason Onset Date Comments Transition Of Care 07/13/2025 Chart review Care Teams (unrecognized sec tion and content) Chemical Equipment Controller Relationship Specialty Start Date End Date Matthew Spencer MD [address] [place], [place] [id number] PCP - General 2/3/09 Chemical Equipment Controller Relationship Specialty Start Date End Date Matthew Spencer MD [address] [place] [address] PCP - General 01/01/09 Chemical Equipment Controller Relationship Specialty Start Date End Date Matthew Spencer MD [address] [place] [address] PCP - General 01/01/09 Chemical Equipment Controller Relationship Specialty Start Date End Date Matthew Spencer MD [address] [place] [address] PCP - General 01/01/09 Chemical Equipment Controller Relationship Specialty Start Date End Date Matthew Spencer MD [facility] [place] [address] PCP - General 01/01/09 Chemical Equipment Controller Relationship Specialty Start Date End Date Matthew Spencer MD [address] [place] [address] PCP - General 01/01/09 Chemical Equipment Controller Relationship Specialty Start Date End Date Matthew Spencer MD [address] [place] [address] PCP - General 01/01/09 Chemical Equipment Controller Relationship Specialty Start Date End Date Matthew Spencer MD [address] [place] [address] PCP - General 01/01/09 Chemical Equipment Controller Relationship Specialty Start Date End Date Matthew Specner MD [address] [place] [address], [place] [address] PCP - General 01/01/09 Chemical Equipment Controller Relationship Specialty Start Date End Date Matthew Spencer MD [address] [place] [address], [place] [address] PCP - General 01/01/09 Chemical Equipment Controller Relationship Specialty Start Date End Date Matthew Spencer MD [address] [place] [address] PCP - General 01/01/09 Chemical Equipment Controller Relationship Specialty Start Date End Date Matthew Spencer MD [address] [place] [address] PCP - General 01/01/09 Chemical Equipment Controller Relationship Specialty Start Date End Date Matthew Spencer MD [address] [place] [address] PCP - General 01/01/09 Team Status: Active Member Role Status Dates Dr. Matthew Spencer MD Family Provider Active Dr. Matthew Spencer MD Primary Care Provider Active Team Status: Inactive Member Role Status Dates Dr. Matthew Spencer MD Primary Care Provider, Referr ing Provider Active Juan Villarreal LINE DECORATOR, LINE DECORATOR-C Attending Provider Active Team Status: Active Member Role Status Dates Dr. Matthew Spencer MD Primary Care Provider Active Juan Villarreal LINE DECORATOR, LINE DECORATOR-C Referring Provider, Other Provide r Active Dr. Tae Capellan MD Attending Provider Active Team Status: Inactive Member Role Status Dates Dr. Matthew Spencer MD Primary Care Provider Active Juan Villarreal LINE DECORATOR, LINE DECORATOR-C Attending Provider, Referring Pro vider Active Chemical Equipment Controller Relationship Specialty Start Date End Date Matthew Spencer MD [address] [place] [address] PCP - General 01/01/09 Chemical Equipment Controller Relationship Specialty Start Date End Date Matthew Spencer MD [address] [place] [address] PCP - General 01/01/09 Chemical Equipment Controller Relationship Specialty Start Date End Date Matthew Spencer MD [address] [place] [address] PCP - General 01/01/09 Chemical Equipment Controller Relationship Specialty Start Date End Date Matthew Spencer MD [address] [place] [address] PCP - General 01/01/09 Chemical Equipment Controller Relationship Specialty Start Date End Date Matthew Spencer MD [address] [place] [address] PCP - General 01/01/09 Chemical Equipment Controller Relationship Specialty Start Date End Date Matthew Spencer MD [address] [place] [address] PCP - General 01/01/09 Chemical Equipment Controller Relationship Specialty Start Date End Date Matthew Spencer MD [address] [place] [address] PCP - General 01/01/09 Chemical Equipment Controller Relationship Specialty Start Date End Date Matthew Spencer MD [address] [place] [address] PCP - General 01/01/09 Chemical Equipment Controller Relationship Specialty Start Date End Date Matthew Spencer MD [address] [place] [address] PCP - General 01/01/09 Chemical Equipment Controller Relationship Specialty Start Date End Date Matthew Spencer MD [address] [place] [address] PCP - General 01/01/09 Dipika Hernandez, PROCESS LABORATORY SPECIALIST.TRIM STENCIL MAKER [address] [place] [address] Wildlife Biologist Internal Medicine 11/06/24 Henrique Garcia, PROCESS LABORATORY SPECIALIST.INFORMATION CODER [address] [place] [address] [facility] Internal Medicine 11/06/24 Chemical Equipment Controller Relationship Specialty Start Date End Date Matthew Spencer MD [address] [place] [address] PCP - General 01/01/09 Dipika Hernandez, PROCESS LABORATORY SPECIALIST.TRIM STENCIL MAKER [address] [place] [address] Wildlife Biologist Internal Medicine 11/06/24 Henrique Garcia PROCESS LABORATORY SPECIALIST.INFORMATION CODER [address] [place] [address] [facility] Internal Medicine 11/06/24 Chemical Equipment Controller Relationship Specialty Start Date End Date Matthew Spencer MD [address] [place] [address] PCP - General 01/01/09 Dipika Hernandez, PROCESS LABORATORY SPECIALIST.TRIM STENCIL MAKER [address] [place] [address] [facility] Internal Medicine 11/06/24 Henrique Garcia PROCESS LABORATORY SPECIALIST.INFORMATION CODER [address] [place] [address] [facility] Internal Medicine 11/06/24 Chemical Equipment Controller Relationship Specialty Start Date End Date Matthew Spencer MD [address] [place] [address] PCP - General 01/01/09 Dipika Hernandez, PROCESS LABORATORY SPECIALIST.TRIM STENCIL MAKER [address] [place] [address] Wildlife Biologist Internal Medicine 11/06/24 Henrique Garcia PROCESS LABORATORY SPECIALIST.INFORMATION CODER [address] [facility] [place] [address] Wildlife Biologist Internal Medicine 11/06/24 Chemical Equipment Controller Relationship Specialty Start Date End Date Matthew Spencer MD [address] [place] [address] PCP - General 01/01/09 Dipika Hernandez, PROCESS LABORATORY SPECIALIST.TRIM STENCIL MAKER [address] [place] [address] Wildlife Biologist Internal Medicine 11/06/24 Henrique Garcia PROCESS LABORATORY SPECIALIST.INFORMATION CODER [address] [facility] [place] [address] Wildlife Biologist Internal Medicine 11/06/24 Chemical Equipment Controller Relationship Specialty Start Date End Date Matthew Spencer MD [address] [place] [address] PCP - General 01/01/09 Dipika Hernandez, PROCESS LABORATORY SPECIALIST.TRIM STENCIL MAKER [address] [place] [address] Wildlife Biologist Internal Medicine 11/06/24 Henrique Garcia PROCESS LABORATORY SPECIALIST.INFORMATION CODER [address] [place] [address] Wildlife Biologist Internal Medicine 11/06/24 Chemical Equipment Controller Relationship Specialty Start Date End Date Matthew Spencer MD [address] [place] [address] PCP - General 01/01/09 Dipika Hernandez, PROCESS LABORATORY SPECIALIST.TRIM STENCIL MAKER [address] [place] [address] Wildlife Biologist Internal Medicine 11/06/24 Henrique Garcia PROCESS LABORATORY SPECIALIST.INFORMATION CODER [address] [place] [address] [facility] Internal Medicine 11/06/24 Chemical Equipment Controller Relationship Specialty Start Date End Date Matthew Spencer MD [address] [place] [address] PCP - General 01/01/09 Dipika Hernandez, PROCESS LABORATORY SPECIALIST.TRIM STENCIL MAKER [address] [place] [address] Wildlife Biologist Internal Medicine 11/06/24 Henrique Garcia, PROCESS LABORATORY SPECIALIST.INFORMATION CODER [address] [place] [address] [facility] Internal Medicine 11/06/24 Chemical Equipment Controller Relationship Specialty Start Date End Date Matthew Spencer MD [address] [place] [address] PCP - General 01/01/09 Dipika Hernandez, PROCESS LABORATORY SPECIALIST.TRIM STENCIL MAKER [address] [place] [address] Wildlife Biologist Internal Medicine 11/06/24 Henrique Garcia PROCESS LABORATORY SPECIALIST.INFORMATION CODER [address] [place] [address] [facility] Internal Medicine 11/06/24 Chemical Equipment Controller Relationship Specialty Start Date End Date Matthew Spencer MD [address] [place] [address] PCP - General 01/01/09 Dipika Hernandez, PROCESS LABORATORY SPECIALIST.TRIM STENCIL MAKER [address] [place] [address] [facility] Internal Medicine 11/06/24 Henrique Garcia PROCESS LABORATORY SPECIALIST.INFORMATION CODER [address] [place] [address] [facility] Internal Medicine 11/06/24 Chemical Equipment Controller Relationship Specialty Start Date End Date Matthew Spencer MD [address] [place] [address] PCP - General 01/01/09 Dipika Hernandez, PROCESS LABORATORY SPECIALIST.TRIM STENCIL MAKER [address] [place] [address] [facility] Internal Medicine 11/06/24 Chemical Equipment Controller Relationship Specialty Start Date End Date Matthew Spencer MD [address] [place] [address] PCP - General 01/01/09 Dipika Hernandez, PROCESS LABORATORY SPECIALIST.TRIM STENCIL MAKER [address] [place] [address] [facility] Internal Medicine 11/06/24 Henrique Garcia PROCESS LABORATORY SPECIALIST.INFORMATION CODER [address] [facility] [place] [address] Wildlife Biologist Internal Medicine 11/06/24 02/16/25 AngelaHenrique PROCESS LABORATORY SPECIALIST.INFORMATION CODER [address] [facility] [place] [address] Wildlife Biologist Internal Medicine 02/20/25 Team Status: Active Member Role Status Dates Dr. Matthew Spencer MD Primary Care Provider Active Team Status: Inactive Member Role Status Dates Dr. Matthew Spencer MD Primary Care Provider Active Start: January 07, 2025 End: January 07, 2025 Dr. Baldemar Mooney MD Attending Provider Active S tart: January 07, 2025 End: January 07, 2025 Dr. Baldemar Mooney MD Emergency Provider Active S tart: January 07, 2025 End: January 07, 2025 Team Status: Inactive Member Role Status Dates Dr. Matthew Spencer MD Primary Care Provider Active Start: January 09, 2025 End: January 09, 2025 Dr. Matthew Spencer MD Referring Provider Active Start: January 09, 2025 End: January 09, 2025 Dr. Tae Capellan MD Attending Provider Active Start: January 09, 2025 End: January 09, 2025 Team Status: Inactive Member Role Status Dates Dr. Matthew Spencer MD Primary Care Provider Active Start: January 24, 2025 End: January 24, 2025 Dr. Tae Capellan MD Attending Provider Active Start: January 24, 2025 End: January 24, 2025 Dr. Tae Capellan MD Referring Provider Active Start: January 24, 2025 End: January 24, 2025 Team Status: Active Member Role Status Dates Dr. Matthew Spencer MD Primary Care Provider Active Start: January 25, 2025 Dr. Tae Capellan MD Attending Provider Active Start: January 25, 2025 Dr. Tae Capellan MD Referring Provider Active Start: January 25, 2025 Dr. Tae Capellan MD Other Provider Active Star t: January 25, 2025 Chemical Equipment Controller Relationship Specialty Start Date End Date Matthew Spencer MD [address] [place] [address] PCP - General 01/01/09 Dipika Hernandez, PROCESS LABORATORY SPECIALIST.TRIM STENCIL MAKER [address] [place] [address] Wildlife Biologist Internal Medicine 11/06/24 Henrique Garcia PROCESS LABORATORY SPECIALIST.INFORMATION CODER [address] [facility] [place] [address] [facility] Internal Medicine 02/20/25 Chemical Equipment Controller Relationship Specialty Start Date End Date Matthew Spencer MD [address] [facility] [place] [address] PCP - General 01/01/09 Dipika Hernandez, PROCESS LABORATORY SPECIALIST.TRIM STENCIL MAKER [address] [facility] [place] [address] Wildlife Biologist Internal Medicine 11/06/24 Henrique Garcia PROCESS LABORATORY SPECIALIST.INFORMATION CODER [address] [place] [address] Wildlife Biologist Internal Medicine 11/06/24 02/16/25 Henrique Garcia PROCESS LABORATORY SPECIALIST.INFORMATION CODER [address] [place] [address] [facility] Internal Medicine 02/20/25 Chemical Equipment Controller Relationship Specialty Start Date End Date Matthew Spencer MD [address] [place] [address] PCP - General 01/01/09 Dipika Hernandez, PROCESS LABORATORY SPECIALIST.TRIM STENCIL MAKER [address] [place] [address] Wildlife Biologist Internal Medicine 11/06/24 Henrique Garcia APRN.INFORMATION CODER [address] [facility] [place] [address] Wildlife Biologist Internal Medicine 02/20/25 Chemical Equipment Controller Relationship Specialty Start Date End Date Matthew Spencer MD [address] [place] [address] PCP - General 01/01/09 Henrique Garcia APRN.INFORMATION CODER [address] [place] [address] Wildlife Biologist Internal Medicine 02/20/25 Dipika Hernandez, PROCESS LABORATORY SPECIALIST.TRIM STENCIL MAKER [address] [place] [address] Wildlife Biologist Internal Medicine 04/18/25 Chemical Equipment Controller Relationship Specialty Start Date End Date Matthew Spencer MD [address] [place] [address] PCP - General 01/01/09 Henrique Garcia PROCESS LABORATORY SPECIALIST.INFORMATION CODER [address] [place] [address] Wildlife Biologist Internal Medicine 02/20/25 Dipika Hernandez PROCESS LABORATORY SPECIALIST.TRIM STENCIL MAKER [address] [place] [address] Wildlife Biologist Internal Medicine 04/18/25 Chemical Equipment Controller Relationship Specialty Start Date End Date Matthew Spencer MD [address] [place] [address] PCP - General 01/01/09 Henrique Garcia PROCESS LABORATORY SPECIALIST.INFORMATION CODER [address] [place] [address] Wildlife Biologist Internal Medicine 02/20/25 Dipika Hernandez, PROCESS LABORATORY SPECIALIST.TRIM STENCIL MAKER [address] [place] [address] Wildlife Biologist Internal Medicine 04/18/25 Chemical Equipment Controller Relationship Specialty Start Date End Date Matthew Spencer MD [address] [place] [address] PCP - General 01/01/09 Henrique Garcia PROCESS LABORATORY SPECIALIST.INFORMATION CODER [address] [place] [address] Wildlife Biologist Internal Medicine 02/20/25 Dipika Hernandez, PROCESS LABORATORY SPECIALIST.TRIM STENCIL MAKER [address] [place] [address] [facility] Internal Medicine 04/18/25 Chemical Equipment Controller Relationship Specialty Start Date End Date Matthew Spencer MD [address] [place] [address] PCP - General 01/01/09 Henrique Garcia, PROCESS LABORATORY SPECIALIST.INFORMATION CODER [address] [place] [address] Wildlife Biologist Internal Medicine 02/20/25 Dipika Hernandez, PROCESS LABORATORY SPECIALIST.TRIM STENCIL MAKER [address] [place] [address] Wildlife Biologist Internal Medicine 04/18/25 Chemical Equipment Controller Relationship Specialty Start Date End Date Matthew Spencer MD [address] [place] [address] PCP - General 01/01/09 Henrique Garcia PROCESS LABORATORY SPECIALIST.INFORMATION CODER [address] [place] [address] Wildlife Biologist Internal Medicine 02/20/25 Dipika Hernandez, PROCESS LABORATORY SPECIALIST.TRIM STENCIL MAKER [address] [place] [address] Wildlife Biologist Internal Medicine 04/18/25 Chemical Equipment Controller Relationship Specialty Start Date End Date Matthew Spencer MD [address] [place] [address] PCP - General 01/01/09 Henrique Garcia PROCESS LABORATORY SPECIALIST.INFORMATION CODER [address] [place] [address] Wildlife Biologist Internal Medicine 02/20/25 Dipika Hernandez, PROCESS LABORATORY SPECIALIST.TRIM STENCIL MAKER [address] [place] [address] Wildlife Biologist Internal Medicine 04/18/25 Chemical Equipment Controller Relationship Specialty Start Date End Date Matthew Spencer MD [address] [place] [address] PCP - General 01/01/09 Henrique Garcia PROCESS LABORATORY SPECIALIST.INFORMATION CODER [address] [place] [address] Wildlife Biologist Internal Medicine 02/20/25 Dipika Hernandez, PROCESS LABORATORY SPECIALIST.TRIM STENCIL MAKER [address] [place] [address] [facility] Internal Medicine 04/18/25 Chemical Equipment Controller Relationship Specialty Start Date End Date Matthew Spencer MD [address] [place], [place] [address] PCP - General 01/01/09 Henrique Garcia PROCESS LABORATORY SPECIALIST.INFORMATION CODER [address] [place], [place] [address] Wildlife Biologist Internal Medicine 02/20/25 Dipika Hernandez, PROCESS LABORATORY SPECIALIST.TRIM STENCIL MAKER [address] [place], [place] [id number] [facility] Internal Medicine 04/18/25 Team Status: Active Member Role/Relationship Status Dates Dr. Matthew Spencer MD Primary Care Provider Active Team Status: Inactive Member Role/Relationship Status Dates Dr. Matthew Spencer MD Primary Care Provider Active Start: August 14, 2025 End: August 14, 2025 Dr. Matthew Spencer MD Referring Provider Active Start: August 14, 2025 End: August 14, 2025 Dr. Tae Capellan MD Attending Provider Active Start: August 14, 2025 End: August 14, 2025 FOR RECORDS PERTAINING TO PATIENTS WHO ARE OR HAVE BEEN ENROLLED IN A CHEMICAL DEPENDENCY/SUBSTANCEABUSE PROGRAM, SOME INFORMATION MAY BE OMITTED. This clinical summary was aggregated from multiple sources. Caution should be exercised in using it in the provision of clinical care. This summary normalizes information from multiple sources, and as a consequence, information in this document may materially change the coding, format and clinical context of patient data. In addition, data may be omitted in some cases. CLINICAL DECISIONS SHOULD BE BASED ON THE PRIMARY CLINICAL RECORDS. [employer] [facility]. provides no warranty or guarantee of the accuracy or completeness of information in this document.
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
[2025-10-07] MEDS: 0.9% Normal Saline (1000mL) 1,000 ML 999 ML IV (16:13)
--- NOTE | 2025-10-07 16:15 | CT_ITS ---
PROCEDURE: BRAIN/HEAD WITHOUT CONTRAST 10/07/2025 REASON FOR EXAM: TRAUMA TECHNIQUE: Procedure Code: CTBR Modality: CT Procedure: BRAIN/HEAD WITHOUT CONTRAST Coronal and Sagittal reconstruction series were provided. One or more dose reduction techniques were used (e.g., Automated exposure control, adjustment of the mA and/or kV according to patient size, use of iterative reconstruction technique. RADIATION DOSE SUMMARY: CTDlvol: 70 mGy DLP: 1464 mGycm COMPARISON: 05/10/2020 FINDINGS: Normal brainstem. Normal cerebellum. Mild atrophy. No intracranial mass. No intracranial hemorrhage. Mild compensatory ventricular dilatation. Very small area of subdural fluid on the right also visible on coronal reconstructions. Not definable on the prior study. Thin subdural on the right without skull fracture. A reading will be called to the ER. CT/Brain/Head without Contrast IMPRESSION: Thin subdural on the right Reading [facility]
--- NOTE | 2025-10-07 16:15 | CT_ITS ---
PROCEDURE: CHEST WITH CONTRAST 10/07/2025 REASON FOR EXAM: TRAUMA TECHNIQUE: Procedure Code: CTCHW Modality: CT Procedure: CHEST WITH CONTRAST Coronal and Sagittal reconstruction series were provided. CONTRAST: Isovue 370 VOLUME: 70 mL One or more dose reduction techniques were used (e.g., Automated exposure control, adjustment of the mA and/or kV according to patient size, use of iterative reconstruction technique). RADIATION DOSE SUMMARY: CTDlvol: 79 mGy DLP: 1004 in 64 MGycm FINDINGS: No thoracic compression deformity. Intact sternum. Small left and large right pleural effusion. Negative for pneumothorax. Normal appearance of both clavicles. Normal appearance of both scapula. Prior left shoulder arthroplasty. Inspection of the ribs demonstrates no right or left-sided rib fracture. Contrast-enhanced imaging of the chest demonstrates no aortic aneurysm or dissection. Normal pulmonary artery enhancement without emboli. Small pericardial effusion. Upper abdomen unremarkable. CT/Chest WITH Contrast IMPRESSION: Coronary artery calcification (CAC) is mild No acute traumatic injury. Bilateral pleural effusions are present. Larger on the right. Reading [facility]
--- NOTE | 2025-10-07 16:15 | CT_ITS ---
PROCEDURE: SPINE CERVICAL WITHOUT CONTRAS 10/07/2025 REASON FOR EXAM: TRAUMA TECHNIQUE: Procedure Code: CTSPC Modality: CT Procedure: SPINE CERVICAL WITHOUT CONTRAS Coronal and Sagittal reconstruction series were provided. One or more dose reduction techniques were used (e.g., Automated exposure control, adjustment of the mA and/or kV according to patient size, use of iterative reconstruction technique. RADIATION DOSE SUMMARY: CTDlvol: 19 mGy DLP: 1464 mGycm FINDINGS: Normal cervical vertebral body height. Degenerative anterolisthesis of C4 upon C5. No facet fracture or facet malalignment. Normal odontoid process. Normal appearance of the C1 and C2 vertebra. No destructive osseous change. Pedicles and lamina are maintained at each level. No adjacent soft tissue mass. CT/Spine Cervical without Contras IMPRESSION: Negative for fracture Reading [facility]
[2025-10-07 16:34] LABS: Hematocrit 38.0 % (37-47); Hemoglobin 13.0 g/dL (12.0-15.0); Immature Granulocytes Count 0.080 X10^3/uL (0.0-0.0); Mean Corp Hgb Conc 34.2 g/dL (32-36); Mean Corpuscular Volume 98.4 fL (81-99); Mean Platelet Vol. 11.2 fl (6.2-12.0); NRBC Flagged by Analyzer 0 % (0-5); Platelet Count 237 K/mm3 (150-450); RBC Distribution Width CV 16.2 % (11.6-14.6); RBC Distribution Width SD 57.3 fl (35.1-43.9); Red Blood Count 3.86 M/mm3 (4.2-5.4); White Blood Count 7.9 K/mm3 (4.4-11.0)
[2025-10-07 16:35] VITALS: BP 114/71; PULSE 88; RESP 14; O2SAT 88
[2025-10-07 16:37] LABS: Prothrombin Time (Protime)PT. 17.6 SECONDS (11.7-14.9)
[2025-10-07 16:38] LABS: Partial Thromboplast Time 30.7 Seconds (24.1-36.2)
[2025-10-07 16:48] LABS: AST(SGOT) 26 U/L (<=31); Alanine Aminotransfer ALT/SGPT 9 U/L (<=34); Albumin, Serum 4.0 g/dL (3.4-4.8); Alkaline Phosphatase 88 U/L (35-104); Anion Gap 10 (5-15); BUN 19 mg/dL (4-19); BUN/Creat Ratio 10.8 RATIO (10-20); Calcium,Total 9.7 mg/dL (7.6-11.0); Carbon Dioxide 26.4 mmol/L (21.0-32.0); Chloride 102 mmol/L (98-108); Estimated Creatinine Clearance 18.21 ml/min (50-250); Globulin 3.6 g/dL (2.2-4.2); Glucose 151 mg/dL (70-99); Magnesium 2.2 mg/dL (1.5-2.2); Potassium 4.5 mmol/L (3.3-5.1)
[2025-10-07 17:00] VITALS: BP 120/74; PULSE 87; RESP 18; O2SAT 97
[2025-10-07 17:00] LABS: Mucous, Urine 0 SEEN /hpf (<or=2+)
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
[2025-10-07 17:03] LABS: Color, Urine Yellow (Yellow); Glucose, Dipstick 1000 mg/dl (Normal); Ketone-Dipstick 5 mg/dl (Negative); Leukocyte Esterase-Dipstick 25 /ul (Negative); Nitrite-Dipstick Negative (Negative); Occult Blood-Urine 10 /ul (Negative); Protein-Dipstick 100 mg/dl (Negative); Specific Gravity, Urine 1.010 (1.002-1.030); Urine Bilirubin Dipstick Negative (Negative)
[2025-10-07 17:12] LABS: Red Blood Cells-Urine 0-5 SEEN /hpf (0-5); Squamous Epithelial Cells - UA 0-5 SEEN /hpf (5-10)
[2025-10-07 17:23] LABS: Troponin T High Sensitivity 60 ng/L (<=14)
--- NOTE | 2025-10-07 17:30 | EKG12_ITS ---
Test Reason : REPEAT Blood Pressure : */* mmHG Vent. Rate : 86 BPM Atrial Rate : * BPM P-R Int : * ms QRS Dur : 72 ms QT Int : 396 ms P-R-T Axes : * 116 -35 degrees QTcB Int : 473 ms Atrial fibrillation Right axis deviation Low voltage QRS Septal infarct , age undetermined Abnormal ECG Confirmed by Marck Guzman ([id number]), editor managing newspaper COLLETTE PAL ([id number]) on 10/08/2025 10:26:45 AM Referred By: LISA Confirmed By: Marck Guzman
[2025-10-07 18:00] VITALS: BP 108/79; PULSE 87; RESP 24; O2SAT 96
[2025-10-07 18:30] VITALS: BP 108/79; PULSE 87; RESP 24; TEMP 36.6; O2SAT 96
--- NOTE | 2025-10-07 19:15 | ED.RN ---
called report to chris at [facility]. Chris states they got the doc to doc report and do not need report just a discharge time. information provided.
[2025-10-07 19:24] LABS: Troponin T High Sens 2 HR 48 ng/L (<=14)
== END 2025-10-07 19:17 | disposition short-term general hospital (02) ==
PROVIDERS: Emergency Provider Surgery; PCP Internal Medicine; Visit Provider Surgery
DX: S06.5X0A Traumatic subdural hemorrhage without loss of consciousness, initial encounter (principal); I48.0 Paroxysmal atrial fibrillation; I48.11 Longstanding persistent atrial fibrillation; E11.22 Type 2 diabetes mellitus with diabetic chronic kidney disease; E78.00 Pure hypercholesterolemia, unspecified; J90 Pleural effusion, not elsewhere classified; I25.10 Atherosclerotic heart disease of native coronary artery without angina pectoris; I12.9 Hypertensive chronic kidney disease with stage 1 through stage 4 chronic kidney disease, or unspecified chronic kidney disease; Z79.01 Long term (current) use of anticoagulants; K21.9 Gastro-esophageal reflux disease without esophagitis; V47.5XXA Car driver injured in collision with fixed or stationary object in traffic accident, initial encounter; N18.9 Chronic kidney disease, unspecified; S20.211A Contusion of right front wall of thorax, initial encounter; Z63.4 Disappearance and death of family member; R79.89 Other specified abnormal findings of blood chemistry
CPT/HCPCS: 70450; 71260; 72125; 80053; 81001; 83735; 84484; 85025; 85610; 85730; 87077; 87086; 87088; 87186; 93005; 96361; 96374; 96375; 99285; Q9967; A4216; J2405; J7165